=== PATIENT | male | born 1945 | race Caucasian/White ===

== ENCOUNTER 2023-07-15 09:04 | Outpatient (OUT) | payer MEDICARE, BC, SELFPAY ==
[2023-07-15 09:34] LABS: Estimated Average Glucose 154 mg/dL
== END 2023-07-15 09:05 | disposition home or self-care (01) ==
LOC: LAB 09:10
PROVIDERS: PCP Family Medicine; Visit Provider Family Medicine
DX: E11.65 Type 2 diabetes mellitus with hyperglycemia (principal)
CPT/HCPCS: 36415; 83036

== ENCOUNTER 2023-10-16 11:28 | Outpatient (OUT) | payer MEDICARE, BC, SELFPAY ==
[2023-10-16 12:18] LABS: Estimated Average Glucose 146 mg/dL; Glycohemoglobin A1C 6.7 % (4.5-6.2)
== END 2023-10-16 11:29 | disposition home or self-care (01) ==
LOC: LAB 11:31
PROVIDERS: PCP Family Medicine; Visit Provider Family Medicine
DX: E11.65 Type 2 diabetes mellitus with hyperglycemia (principal)
CPT/HCPCS: 36415; 83036

== ENCOUNTER 2023-12-11 11:11 | Outpatient (OUT) | payer MEDICARE, BC, SELFPAY ==
--- OUTSIDE RECORDS SUMMARY | 2023-12-11 11:26 | XMS_ITS | CCD ---
Author Organization [facility] Care Team Providers Care Team Facilitator Name Role Phone UNKNOWN, PROVIDER Admitting Unavailable LUX ORTIZ Referring Unavailable NADEREGeronimo, BENEDICT Primary Care Unavailable JACQUELYN STEIN Attending Unavailable ND Procedure Practitioner Unavailab le UNKNOWN, PROVIDER Surgeon Unavailable AVEL, DR BENEDICT Brush Consulting Unavailable NADERER, DR BENEDICT Brush Attending Unavailable NADERER, DR BENEDICT Brush Admitting Unavailable NADERER, DR BENEDICT Brush Primary Care Unavailable NADERER, DR BENEDICT Brush Primary Care Unavailable NADERER, DR BENEDICT Brush Consulting Unavailable NADERER, DR BENEDICT Brush Attending Unavailable NADERER, DR BENEDICT Brush Admitting Unavailable KVNG JOHNSON Attending Unavailable ELIZABETH, KVNG Attending Unavailable Benedict Vallecillo MD Primary Care Provider [phone] Unavailable Primary Care Provider Unavailabl WILLIE Brown JR Referring Unavailabl e STEPBRIANNA AZUL, WILLIE Manzano Referring Unavailabl e STEPBRIANNA AZUL, WILLIE Manzano Attending Unavailabl e INDY AZUL, WILLIE Manzano Referring Unavailabl e STEPBRIANNA AZUL, WILLIE Manzano Attending Unavailabl e STEPBRIANNA AZUL, WILLIE Manzano Referring Unavailabl e ANH POPE Attending Unavailable BENEDICT VALLECILLO Attending Unavailable JR. INDY, WILLIE Manzano Attending Unavaila yunior WOODS JR., WILLIE Manzano Referring Unavaila BERNICE Acosta Attending Unavailable GAL BAUTISTA Attending Unavailable BERNICE AVILA Referring Unavailable Allergies Allergy Classification Reported Allergen(s) Allergy Type Date of Onset Reaction(s) Facility (1 source) 90412,00 Drug allergy (disorder) 9 [facility] Repository (1 source) ALLERGIES NOT ON FILE; Translations: [ALLERGIES NOT ON FILE] Propensity to adverse reactions (disorder) [facility] Repository Medications Current Medications Medication Drug Class(es) Dates Sig (Normalized) Sig (Original) apixaban 5 mg oral tablet (7 sources) Factor Xa Inhibitor Start: 09-18-2023 take 1 tablet by mouth in the morning, then take 1 tablet by mouth at bedtime ELIQUIS 5 mg tablet Take 1 tablet (5 mg total) by mouth in the morning and 1 tablet (5 mg total) before bedtime. 0 09/18/2023 Active ascorbic acid 113 mg / copper gluconate 0.4 mg / docosahexaenoic acid 87.5 mg / eicosapentaenoic acid 163 mg / lutein 2.5 mg / tocopherol acetate 100 unt / zeaxanthin 0.5 mg / zinc oxide 17.4 mg oral capsule (6 sources) Vitamin C take 1 tablet by mouth twice daily Multiple Vitamins-Minerals (PreserVision AREDS 2) capsule 1 tablet Orally two times daily 0 Active aspirin 81 mg delayed release oral tablet (7 sources) Platelet Aggregation Inhibitor, Nonsteroidal Anti-inflammatory Drug take 1 tablet by mouth in the morning aspirin 81 mg Take 1 tablet (81 mg total) by mouth in the morning. 0 Active atorvastatin 40 mg oral tablet (7 sources) HMG-CoA Reductase Inhibitor Start: 09-18-2023 take 1 tablet by mouth in the morning atorvastatin (LIPITOR) 40 mg tablet Take 1 tablet (40 mg total) by mouth in the morning. 0 09/18/2023 Active empagliflozin 25 mg oral tablet (7 sources) Sodium-Glucose Cotransporter 2 Inhibitor Start: 09-18-2023 take 1 tablet by mouth in the morning JARDIANCE 25 mg tablet tablet Take 1 tablet (25 mg total) by mouth in the morning. 0 09/18/2023 Active folic acid 1 mg / polysaccharide iron complex 150 mg / vitamin b12 0.025 mg oral capsule (1 source) Vitamin B12 Start: 11-30-2023 End: 12-30-2023 take 1 tablet by mouth in the morning POLY-IRON 150 FORTE 150-25-1 mg-mcg-mg capsule Take 1 tablet by mouth in the morning. 0 11/30/2023 12/30/2023 Active glipiZIDE 10 mg oral tablet (7 sources) Sulfonylurea take 1 tablet by mouth in the morning glipiZIDE (GLUCOTROL) 10 mg tablet Take 1 tablet (10 mg total) by mouth in the morning. 0 Active lisinopril 20 mg oral tablet (7 sources) Angiotensin Converting Enzyme Inhibitor Start: 09-18-2023 take 1 tablet by mouth in the morning lisinopriL (PRINIVIL,ZESTRIL ) 20 mg tablet Take 1 tablet (20 mg total) by mouth in the morning. 0 09/18/2023 Active Multiple Vitamins-Minerals (Centrum Silver 50+Men) tablet (6 sources) Multiple Vitamins-Minerals (Centrum Silver 50+Men) tablet as directed Orally 0 Active otinurzy-uggw-JI-calci um &mins (THERAGRAN-M) 9 mg iron-400 mcg tablet (1 source) fzvaooxf-jmrx-YS - calcium &mins (THERAGRAN-M) 9 mg iron-400 mcg tablet Take 1 tablet by mouth in the morning. 0 Active vit C/E/zinc ox/ginny/lut/zeax (ICAPS AREDS2 ORAL) (1 source) take 1 tablet by mouth in the morning vit C/E/zinc ox/ginny/lut/zeax (ICAPS AREDS2 ORAL) Take 1 tablet by mouth in the morning. 0 Active Problems Active Problems Problem Classification Problem Date Documented Date Episodic/Chronic Cardiac dysrhythmias (2 sources) Atrial fibrillation; Translations: [Unspecified atrial fibrillation] Onset: 12-03-2023 11-27-2023 Chronic Conditions associated with dizziness or vertigo (5 sources) Benign paroxysmal positional vertigo; Translations: [Benign paroxysmal vertigo, unspecified ear] Onset: 10-16-2023 10-16-2023 Episodic Conduction disorders (6 sources) Heart block ; Translations: [Conduction disorder, unspecified] Onset: 06-21-2019 04-22-2023 Chronic Coronary atherosclerosis and other heart disease (15 sources) Atherosclerotic heart disease of [place] coronary artery without angina pectoris; Translations: [Coronary arteriosclerosis] Onset: 06-21-2019 Resolved: 10-16-2023 Chronic Diabetes mellitus with complications (11 sources) Type 2 diabetes mellitus with hyperglycemia; Translations: [Type 2 diabetes mellitus] Onset: 05-15-2022 Chronic Diabetes mellitus without complication (2 sources) Type 2 diabetes mellitus without complication; Translations: [Type 2 diabetes mellitus without complications] Onset: 12-03-2023 11-27-2023 Chronic Disorders of lipid metabolism (9 sources) Hyperlipidemia, unspecified; Translations: [Mixed hyperlipidemia] Onset: 11-17-2022 Chronic Essential hypertension (12 sources) Essential (primary) hypertension; Translations: [Benign essential hypertension] Onset: 11-13-2022 Chronic Genitourinary symptoms and ill-defined conditions (2 sources) Increased frequency of urination; Translations: [Frequency of micturition] Onset: 12-03-2023 11-27-2023 Episodic Gout and other crystal arthropathies (5 sources) Gouty arthropathy; Translations: [Gout, unspecified] Onset: 10-16-2023 10-16-2023 Chronic Osteoarthritis (17 sources) Unilateral primary osteoarthritis, left knee; Translations: [Osteoarthritis of knee] Onset: 04-22-2023 Chronic Other aftercare (1 source) Other [facility] (current) drug therapy; Translations: [OTH USP CURRENT DRUG THERAPY] Onset: 11-17-2022 Episodic Other liver diseases (5 sources) Non-alcoholic fatty liver; Translations: [Fatty (change of) liver, not elsewhere classified] Onset: 10-16-2023 10-16-2023 Chronic Other non-traumatic joint disorders (2 sources) Pain in left knee; Translations: [Pain in joint, lower leg] 10-21-2023 Episodic Other screening for suspected conditions (not mental disorders or infectious disease) (1 source) Encounter for screening for malignant neoplasm of prostate; Translations: [ENC SCREEN MALIG NEOPLASM PROSTATE] Onset: 11-17-2022 Episodic Peripheral and visceral atherosclerosis (5 sources) Peripheral vascular disease; Translations: [Peripheral vascular disease, unspecified] Onset: 10-16-2023 10-16-2023 Chronic Pulmonary heart disease (8 sources) Chronic pulmonary embolism; Translations: [Chronic pulmonary embolism] Onset: 02-04-2023 Chronic Screening and history of mental health and substance abuse codes (2 sources) Ex-smoker; Translations: [Personal history of nicotine dependence] Onset: 12-03-2023 11-27-2023 Episodic Past or Other Problems Problem Classification Problem Date Documented Da te Episodic/Chronic Coronary atherosclerosis and other heart disease (8 sources) Presence of coronary angioplasty implant and graft; Translations: [Percutaneous transluminal coronary angioplasty status] Onset: 02-04-2023 Episodic Pulmonary heart disease (8 sources) Personal history of pulmonary embolism; Translations: [H/O: pulmonary embolus] Onset: 12-21-2020 Episodic Residual codes; unclassified (2 sources) Personal history of other complications of , childbirth and the puerperium; Translations: [Personal history of other complications of , childbirth and the puerperium] Onset: 02-04-2023 Episodic Results Test Name Value Interpretation Reference Range Facility Bacteria identified Cx Nom ( U)on 12-04-2023 Service comment (Unsp spec) [Interp] NO GROWTH AT <1000 CFU/mL [facility] CBC AND AUTO DIFFon 12-03-19 ABSOLUTE BASOPHIL 0.0 X10E9/L Normal 0.0-0.2 [facility] Comment on above: Performed By: #### C BCA, CMP #### [facility] ([id number]) [address] [facility] [address] [place] [address] ABSOLUTE NEUTROPHIL 4.7 X10E9/L Normal 1.5-6.6 [facility] Comment on above: Performed By: #### C BCA, CMP #### [facility] ([id number]) [address], [address] [place] [address] Basophils/100 WBC (Bld) 0.5 % Normal [facility] Comment on above: Performed By: #### C BCA, CMP #### [facility] ([id number]) [address] [address] [place] [address] Eosinophils (Bld) [#/Vol] 0.1 10*3/uL Normal 0.0-0.4 [facility] Comment on above: Performed By: #### C BCA, CMP #### [facility] ([id number]) [address] [address] [place] [address] Eosinophils/100 WBC (Bld) 1.8 % Normal [facility] Comment on above: Performed By: #### C BCA, CMP #### [facility] ([id number]) [address], [address] [place] [address] Erythrocyte distribution width (RBC) [Ratio] 14.3 % Normal 11.5-15.0 [facility] Comment on above: Performed By: #### C BCA, CMP #### [facility] ([id number]) [address], [address] [place] [address] Hematocrit (Bld) [Volume fraction] 47.0 % Normal 39-49 [facility] Comment on above: Performed By: #### C BCA, CMP #### [facility] ([id number]) [address], [address] [place] [address] Hemoglobin (Bld) [Mass/Vol] 15.9 g/dL Normal 13.0-17.0 [facility] Comment on above: Performed By: #### C BCA, CMP #### [facility] ([id number]) [address], [address] [place] [address] Lymphocytes (Bld) [#/Vol] 1.4 10*3/uL Normal 1.0-3.5 [facility] Comment on above: Performed By: #### C BCA, CMP #### [facility] ([id number]) [address] [place] [address] Lymphocytes/100 WBC (Bld) 20.5 % Normal [facility] Comment on above: Performed By: #### C BCA, CMP #### [facility] ([id number]) [address], [address] [place] [address] MCH (RBC) [Entitic mass] 31.1 pg Normal 27-34 [facility] Comment on above: Performed By: #### C BCA, CMP #### [facility] ([id number]) [address], [address] [place] [address] MCHC (RBC) [Mass/Vol] 33.9 g/dL Normal 32-36 [facility] Comment on above: Performed By: #### C BCA, CMP #### [facility] ([id number]) [address], [address] [place] [address] MCV (RBC) [Entitic vol] 92 fL Normal 80-100 [facility] Comment on above: Performed By: #### C JUANPABLO, CMP #### [facility] ([id number]) [address], [address] [place] [address] Monocytes (Bld) [#/Vol] 0.7 10*3/uL Normal 0-0.9 [facility] Comment on above: Performed By: #### C JUANPABLO, CMP #### [facility] ([id number]) [address], [facility] [address] [place] [address] Monocytes/100 WBC (Bld) 9.7 % Normal [facility] Comment on above: Performed By: #### Jose Juan GERONIMO, CMP #### [facility] ([id number]) [address], [facility] [address] [place] [address] Neutrophils/100 WBC (Bld) 67.5 % Normal [facility] Comment on above: Performed By: #### C JUANPABLO, CMP #### [facility] ([id number]) [address], [address] [place] [address] Platelet mean volume (Bld) [Entitic vol] 8.4 fL Normal 7-12 [facility] Comment on above: Performed By: #### C JUANPABLO, CMP #### [facility] ([id number]) [address], [address] [place] [address] Platelets (Bld) [#/Vol] 155 10*3/uL Normal 150-450 [facility] Comment on above: Performed By: #### C JUANPABLO, CMP #### [facility] ([id number]) [address], [address] [place] [address] RBC COUNT 5.12 X10E12/L Normal 4.10-5.70 [facility] Comment on above: Performed By: #### C BCA, CMP #### [facility] ([id number]) [address] [place] [address] WBC (Bld) [#/Vol] 7.0 10*3/uL Normal 4.0-11.0 [facility] Comment on above: Performed By: #### C BCA, CMP #### [facility] ([id number]) [address], [address] [place] [address] CBC auto differentialon 11-13 Basophils (Bld) [#/Vol] 0.0 10*3/uL [facility] Basophils/100 WBC (Bld) 0.5 % [facility] Eosinophils (Bld) [#/Vol] 0.1 10*3/uL [facility] Eosinophils/100 WBC (Bld) 1.8 % [facility] Erythrocyte distribution width (RBC) [Ratio] 14.3 % 11.5 - 15.0 % [facility] Hematocrit (Bld) [Volume fraction] 47.0 % 39 - 49 % [facility] Hemoglobin (Bld) [Mass/Vol] 15.9 g/dL 13.0 - 17.0 g/dL [facility] Lymphocytes (Bld) [#/Vol] 1.4 10*3/uL [facility] Lymphocytes/100 WBC (Bld) 20.5 % [facility] MCH (RBC) [Entitic mass] 31.1 pg 27 - 34 pg [facility] MCHC (RBC) [Mass/Vol] 33.9 g/dL 32 - 36 g/dL [facility] MCV (RBC) [Entitic vol] 92 fL 80 - 100 fL [facility] Monocytes (Bld) [#/Vol] 0.7 10*3/uL [facility] Monocytes/100 WBC (Bld) 9.7 % [facility] Neutrophils (Bld) [#/Vol] 4.7 10*3/uL [facility] Neutrophils/100 WBC (Bld) 67.5 % [facility] Platelet mean volume (Bld) [Entitic vol] 8.4 fL 7 - 12 fL [facility] Platelets (Bld) [#/Vol] 155 10*3/uL [facility] RBC (Bld) [#/Vol] 5.12 10*6/uL [facility] WBC corrected for nucl RBC Auto (Bld) [#/Vol] 7.0 [facility] COMPREHENSIVE METABOLIC PANE Yung 12-03-2023 Albumin [Mass/Vol] 4.2 g/dL Normal 3.2-5.3 [facility] Comment on above: Performed By: #### C BCA, CMP #### [facility] ([id number]) [address], [address] [place] [address] ALP [Catalytic activity/Vol] 103 U/L Normal 39-130 [facility] Comment on above: Performed By: #### C BCA, CMP #### [facility] ([id number]) [address], [address] [place] [address] ALT [Catalytic activity/Vol] 30 U/L Normal 0-40 [facility] Comment on above: Performed By: #### C BCA, CMP #### [facility] ([id number]) [address], [address] [place] [address] Anion gap [Moles/Vol] 12 mmol/L Normal 5-15 [facility] Comment on above: Performed By: #### C BCA, CMP #### [facility] ([id number]) [address], [address] [place] [address] AST [Catalytic activity/Vol] 28 U/L Normal 0-41 [facility] Comment on above: Performed By: #### C BCA, CMP #### [facility] ([id number]) [address], [address] [place] [address] Bilirubin [Mass/Vol] 0.7 mg/dL Normal 0.3-1.2 [facility] Comment on above: Performed By: #### C BCA, CMP #### [facility] ([id number]) [address], [address] [place] [address] Calcium [Mass/Vol] 9.9 mg/dL Normal 8.5-10.5 [facility] Comment on above: Performed By: #### C BCA, CMP #### [facility] ([id number]) [address], [address] [place] [address] Chloride [Moles/Vol] 106 mmol/L Normal 98-109 [facility] Comment on above: Performed By: #### C BCA, CMP #### [facility] ([id number]) [address], [address] [place] [address] CO2 [Moles/Vol] 27 mmol/L Normal 22-32 [facility] Comment on above: Performed By: #### C BCA, CMP #### [facility] ([id number]) [address] [address] [place] [address] Creatinine [Mass/Vol] 1.15 mg/dL Normal 0.60-1.30 [facility] Comment on above: Result Comment: METH OD TRACEABLE TO IDMS STANDARD Performed By: #### C BCA, CMP #### [facility] ([id number]) [address] [place] [address] GFR/1.73 sq M.predicted among non-blacks MDRD (S/P/Bld) [Vol rate/Area] 66 mL/min/{1.73_m2} Normal >59 [facility] Comment on above: Result Comment: Reported eGFR is based on the CKD-EPI 1 equation that does not use a race coefficient. Performed By: #### C BCA, CMP #### [facility] ([id number]) [address] [address] [place] [address] Glucose [Mass/Vol] 94 mg/dL Normal 65-99 [facility] Comment on above: Performed By: #### C BCA, CMP #### [facility] ([id number]) [address] [address] [place] [address] Potassium [Moles/Vol] 4.3 mmol/L Normal 3.5-5.0 [facility] Comment on above: Performed By: #### C BCA, CMP #### [facility] ([id number]) [address], [address] [address] Protein [Mass/Vol] 7.0 g/dL Normal 6.0-8.0 [facility] Comment on above: Performed By: #### C BCA, CMP #### [facility] ([id number]) [address], [address] [address] Sodium [Moles/Vol] 145 mmol/L Normal 134-146 [facility] Comment on above: Performed By: #### C BCA, CMP #### [facility] ([id number]) [address] [address] Urea nitrogen [Mass/Vol] 26 mg/dL Normal 5-27 [facility] Comment on above: Performed By: #### C BCA, CMP #### [facility] ([id number]) [address], [address] [address] Comprehensive metabolic pane yung 12-03-2023 Albumin [Mass/Vol] 4.2 g/dL 3.2 - 5.3 g/dL [facility] ALP [Catalytic activity/Vol] 103 U/L 39 - 130 U/L [facility] ALT No additional P-5'-P [Catalytic activity/Vol] 30 U/L 0 - 40 U/L [facility] Anion gap [Moles/Vol] 12 mmol/L 5 - 15 mmol/L [facility] AST [Catalytic activity/Vol] 28 U/L 0 - 41 U/L [facility] Bilirubin [Mass/Vol] 0.7 mg/dL 0.3 - 1 .2 mg/dL [facility] Calcium [Mass/Vol] 9.9 mg/dL 8.5 - 10. 5 mg/dL [facility] Chloride [Moles/Vol] 106 mmol/L 98 - 10 9 mmol/L [facility] CO2 [Moles/Vol] 27 mmol/L 22 - 32 mmol/L [facility] Creatinine [Mass/Vol] 1.15 mg/dL 0.60 - 1.30 mg/dL [facility] Comment on above: METHOD TRACEABLE TO IDKY STANDARD eGFR (CKD-EPI)non-race dependent 66 - PINF [facility] Comment on above: Reported eGFR is based on the CKD-EPI 2020 equation that does not use a race coefficient. Glucose [Mass/Vol] 94 mg/dL 65 - 99 mg/dL [facility] Potassium [Moles/Vol] 4.3 mmol/L 3.5 - 5.0 mmol/L [facility] Protein [Mass/Vol] 7.0 g/dL 6.0 - 8.0 g/dL [facility] Sodium [Moles/Vol] 145 mmol/L 134 - 146 mmol/L [facility] Urea nitrogen [Mass/Vol] 26 mg/dL 5 - 27 mg/dL [facility] HGB A1C (GLYCO-HGB)on 2023 Glucose [Mass/Vol] 146 mg/dL Normal [facility] Comment on above: Performed By: #### C BCA, CMP #### [facility] ([id number]) [address] [place] [address] HbA1c (Bld) [Mass fraction] 6.7 % High 4.4-5.6 [facility] Comment on above: Result Comment: NOTE ADA Guidelines Result HgbA1c Normal : less than 5.7 % Prediabetes : 5.7 % to 6.4 % Diabetes : > 6.4 % Use with caution in patients with abnormal hemoglobin variants as the half-life of red blood cells and in vivo glycation rates are affected. Performed By: #### C BCA, CMP #### [facility] ([id number]) [address] [place] [address] Hemoglobin A1con 12-03-2023 Average glucose Estimated from glycated hemoglobin (Bld) [Mass/Vol] 146 mg/dL [facility] HbA1c (Bld) [Mass fraction] 6.7 % High 4.4 - 5.6 % [facility] Comment on above: NOTE ADA Guidelines Result HgbA1c Normal : less than 5.7 % Prediabetes : 5.7 % to 6.4 % Diabetes : > 6.4 % Use with caution in patients with abnormal hemoglobin variants as the half-life of red blood cells and in vivo glycation rates are affected. Interpretation and review of laboratory results Abnormal [facility] URINALYSISon 12-03-2023 Bilirubin Ql (U) Negative Normal NEG [facility] BLOOD/HGB Negative Normal NEG [facility] Color (U) YELLOW Normal YELLOW [facility] Glucose Ql (U) >1000 Abnormal NEG [facility] Ketones Ql (U) Negative Normal NEG [facility] Leukocyte esterase Test strip Ql (U) Negative Normal NEG [facility] Comment on above: Result Comment: HIGH CONCENTRATIONS OF GLUCOSE MAY DECREASE THE REACTIVITY OF THE DIPSTICK LEUKOCYTE TEST PAD. Nitrite Ql (U) Negative Normal NEG [facility] pH (U) 6.5 [pH] Normal 5.0-8.5 [facility] Protein Ql (U) Negative Normal NEG [facility] Specific gravity (U) [Rel density] 1.033 Normal 1.003-1.035 [facility] TURBIDITY CLEAR Normal CLEAR [facility] Urobilinogen (U) [Mass/Vol] mg/dL Normal <1.1 [facility] URINE CULTUREon 12-03-2023 Bacteria identified Cx Nom (U) CULTURE RESULTS NO GROWTH AT <1000 CFU/mL Normal [facility] Comment on above: Performed By: #### 6 30-4 #### [facility] ([id number]) [address] [place] [address], [address] [place] [address] Urinalysison 12-03-2023 Bilirubin Ql (U) Negative Negative^Ne ga tive [facility] Color (U) YELLOW YELLOW^YELLOW [facility] Glucose (U) [Mass/Vol] mg/dL Abnormal Negative^Nega tive mg/dL [facility] Hemoglobin Auto test strip Ql (U) Negative Negative^Nega tive [facility] Interpretation and review of laboratory results Abnormal [facility] Ketones (U) [Mass/Vol] Negative Negative^Nega tive mg/dL [facility] Leukocyte esterase Auto test strip Ql (U) Negative Negative^Nega tive [facility] Comment on above: HIGH CONCENTRATIONS OF GLUCOSE MAY DECREASE THE REACTIVITY OF THE DIPSTICK LEUKOCYTE TEST PAD. Nitrite Auto test strip Ql (U) Negative Negative^Nega tive [facility] pH (U) 6.5 [pH] 5.0 - 8.5 [facility] Protein (U) [Mass/Vol] Negative Negative^Nega tive mg/dL [facility] Specific gravity Refractometry automated (U) [Rel density] 1.033 1.003 - 1.035 [facility] Turbidity Ql (U) CLEAR CLEAR^CLEAR [facility] Urobilinogen Qn (U) [facility] XR CHEST 2 VWSon 12-03-2023 XR CHEST 2 VWS XR CHEST 2 VWS CHEST RADIOGRAPH 12/03/2023 9:51 AM CLINICAL INDICATION: Preoperative evaluation, left knee surgery. No current chest complaints. Former smoker. TECHNIQUE: Frontal and lateral views of the chest were obtained. COMPARISON: No prior studies. FINDINGS: Lungs, heart & mediastinum: Cardiomediastinal silhouette appears normal. No pleural effusion or pneumothorax is present. There is no focal pulmonary infiltrate. Other: Evaluation of bony structures shows no displaced fractures, or concerning bone lesions. Relatively mild degenerative changes in the spine. IMPRESSION: 1. No acute cardiopulmonary process Finalized by Ricardo Mackey MD on 12/03/2023 4:17 PM Normal [facility] XR Chest PA and Lateralon CHEST RADIOGRAPH 12/03/2023 9:51 AM CLINICAL INDICATION: Preoperative evaluation, left knee surgery. No current chest complaints. Former smoker. TECHNIQUE: Frontal and lateral views of the chest were obtained. COMPARISON: No prior studies. FINDINGS: Lungs, heart & mediastinum: Cardiomediastinal silhouette appears normal. No pleural effusion or pneumothorax is present. There is no focal pulmonary infiltrate. Other: Evaluation of bony structures shows no displaced fractures, or concerning bone lesions. Relatively mild degenerative changes in the spine. IMPRESSION: 1. No acute cardiopulmonary process Finalized by Ricardo Mackey MD on 12/03/2023 4:17 PM SECTRAPARicardo Escobar MD - 12/03/2023 CHEST RADIOGRAPH 12/03/2023 9:51 AM CLINICAL INDICATION: Preoperative evaluation, left knee surgery. No current chest complaints. Former smoker. TECHNIQUE: Frontal and lateral views of the chest were obtained. COMPARISON: No prior studies. FINDINGS: Lungs, heart & mediastinum: Cardiomediastinal silhouette appears normal. No pleural effusion or pneumothorax is present. There is no focal pulmonary infiltrate. Other: Evaluation of bony structures shows no displaced fractures, or concerning bone lesions. Relatively mild degenerative changes in the spine. IMPRESSION: 1. No acute cardiopulmonary process Finalized by Ricardo Mackey MD on 12/03/2023 4:17 PM [facility] Radiology Study observation (narrative) [facility] XR Chest PA and LateralOrder ed By: Ricardo Mackey on 12-03-2023 [facility] Work Phone: XR Knee - left 1 or 2 Viewso n 10-21-2023 Imaging Result: AP and lateral views of left knee showed severe varus deformity with [id number] articulation to the medial joint line, flattening of the articular surfaces to the medial joint line lateral joint line and patellofemoral joint. Subchondral sclerosis was noted at the medial joint line surfaces as well as the lateral joint line and patellofemoral joint. Marginal osteophytic formation was noted tricompartmentally. There is no evidence of fracture or dislocation. 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 [facility] Radiology Study observation (narrative) [facility] MLR HEMOGLOBIN A1Con 024 Glucose [Mass/Vol] 146 mg/dL [facility] HbA1c (Bld) [Mass fraction] 6.7 % High 4.5 - 6.2 % [facility] Comment on above: ADA RECOMMENDED LIMI T 4.0 - 6.0 ADA THERAPEUTIC TARGET < 7.0 ACTION SUGGESTED > 7.0 Interpretation and review of laboratory results Abnormal [facility] Healthcare [facility] Healthcare Office Visiton 08-05-2023 Follow-up visit [id number] Sereg Shine 1945 M Date Provider Department Center 08/05/2023 [facility] Family History Problem Relation Age of Onset No Known Problems Mother No Known Problems Father Family Status - Relation Status Age at Mother Father Level of Service:92617 [place] OFFICE/OUTPATIENT ESTABLISHED MOD MDM 30-39 MIN Normal [facility] Office Visiton 02-04-2023 Follow-up visit [id number] Serge Shine 1945 M Date Provider Department Center 02/04/2023 [facility] No family history on file Level of Service:00577 ND OFFICE/OUTPATIENT ESTABLISHED MOD MDM 30-39 MIN Normal [facility] CBC AUTO DIFFon 11-13-2022 BASO # 0.0 103/ul Normal 0.0-0.1 [facility] Comment on above: Performed By: #### C BC #### [facility] [address] [place] [address] Dr. Demetris Allred Basophils/100 WBC (Bld) 0.4 % Normal 0.2-2.0 [facility] Comment on above: Performed By: #### C BC #### [facility] [address] [place] [address] Dr. Demetris Allred EO # 0.2 103/ul Normal 0.0-0.7 [facility] Comment on above: Performed By: #### C BC #### [facility] [address] [place] [address] Dr. Demetris Allred Eosinophils/100 WBC (Bld) 2.2 % Normal 0.9-7.0 [facility] Comment on above: Performed By: #### C BC #### [facility] [address] [place] [address] Dr. Demetris Allred Erythrocyte distribution width (RBC) [Ratio] 12.7 % Normal 11.0-15.0 [facility] Comment on above: Performed By: #### C BC #### [facility] [address] [place] [address] Dr. Demetris Allred Hematocrit (Bld) [Volume fraction] 44.8 % Normal 42.0-54.0 [facility] Comment on above: Performed By: #### C BC #### [facility] [address] [place] [address] Dr. Demetris Allred Hemoglobin (Bld) [Mass/Vol] 15.0 g/dL Normal 14.0-18.0 [facility] Comment on above: Performed By: #### C BC #### [facility] [address] [place] [address] Dr. Demetris Allred IG # 0.02 10e3/ul Normal 0.00-0.03 [facility] Comment on above: Performed By: #### C BC #### [facility] [address] [place] [address] Dr. Demetris Allred IG % 0.3 % Normal 0.0-0.5 [facility] Comment on above: Performed By: #### C BC #### [facility] [address] [place] [address] Dr. Demetris Allred LYMPH # 1.6 103/ul Normal 1.2-3.8 [facility] Comment on above: Performed By: #### C BC #### [facility] [address] [place] [address] Dr. Demetris Allred Lymphocytes/100 WBC (Bld) 19.9 % Critically low 20.5-60.0 [facility] Comment on above: Performed By: #### C BC #### [facility] [address] [place] [address] Dr. Demetris Allred MANUAL DIFF REQ NO Normal [facility] Comment on above: Performed By: #### C BC #### [facility] [address] [place] [address] Dr. Demetris Allred MCH (RBC) [Entitic mass] 30.2 pg Normal 25.9-34.0 [facility] Comment on above: Performed By: #### C BC #### [facility] [address] [place] [address] Dr. Demetris Allred MCHC (RBC) [Mass/Vol] 33.5 g/dL Normal 29.9-35.2 [facility] Comment on above: Performed By: #### C BC #### [facility] [address] [place] [address] Dr. Demetris Allred MCV (RBC) [Entitic vol] 90.1 fL Normal 80.0-94.0 [facility] Comment on above: Performed By: #### C BC #### [facility] [address] [place] [address] Dr. Demetris Allred MONO # 0.6 103/ul Normal 0.3-0.8 [facility] Comment on above: Performed By: #### C BC #### [facility] [address] [place] [address] Dr. Demetris Allred Monocytes/100 WBC (Bld) 8.2 % Normal 1.7-12.0 [facility] Comment on above: Performed By: #### C BC #### [facility] [address] [place] [address] Dr. Demetris Allred NEUT # 5.4 103/ul Normal 1.4-6.5 [facility] Comment on above: Performed By: #### C BC #### [facility] [address] [place] [address] Dr. Demetris Allred Neutrophils/100 WBC (Bld) 69.0 % Normal 43.0-75.0 [facility] Comment on above: Performed By: #### C BC #### [facility] [address] [place] [address] Dr. Demetris Allred Platelet mean volume (Bld) [Entitic vol] 9.6 fL Normal 9.5-13.5 [facility] Comment on above: Performed By: #### C BC #### [facility] [address] [place] [address] Dr. Demetris Allred PLT 169 103/ul Normal 150-450 [facility] Comment on above: Performed By: #### C BC #### [facility] [address] [place] [address] Dr. Demetris Allred RBC 4.97 106/ul Normal 4.70-6.10 [facility] Comment on above: Performed By: #### C BC #### [facility] [address] [address] [address] Demetris Allred WBC 7.8 103/ul Normal 4.0-11.0 [facility] Comment on above: Performed By: #### C BC #### [facility] [address] [place] [address] Dr. Demetris Allred GLYCOHEMOGLOBIN A1Con 2022 ADA RECOMMENDATION SEE BELOW Normal [facility] Comment on above: Result Comment: ADA RECOMMENDED LIMIT 4.0 - 6.0 ADA THERAPEUTIC TARGET < 7.0 ACTION SUGGESTED > 7.0 Performed By: #### A 1C #### [facility] [address] [place] [address] Dr. Demetris Allred Glucose [Mass/Vol] 206 mg/dL Normal [facility] Comment on above: Performed By: #### A 1C #### [facility] [address] [place] [address] Dr. Demetris Allred HbA1c (Bld) [Mass fraction] 8.8 % Critically high 4.5-6.2 [facility] Comment on above: Performed By: #### A 1C #### [facility] [address] [place] [address] Dr. Demetris Allred LIPID PROFILEon 11-13-2022 CHOL-HDL RATIO NORM SEE BELOW Normal [facility] Comment on above: Result Comment: 3.3 - 4.4 LOW RISK 4.4 - 7.1 AVERAGE RISK 7.1 - 11.0 MODERATE RISK >11.0 HIGH RISK Performed By: #### L ANN, LIPID, BMP #### [facility] [address] [place] [address] Dr. Demetris Allred Cholesterol [Mass/Vol] 137 mg/dL Normal <=200 [facility] Comment on above: Performed By: #### L IVER, LIPID, BMP #### [facility] [address] [address] [address] Demetris Allred Cholesterol in HDL [Mass/Vol] 35 mg/dL Critically low 40-60 [facility] Comment on above: Performed By: #### L IVER, LIPID, BMP #### [facility] [address] [address] [address] Demetris Allred Cholesterol in LDL [Mass/Vol] 24.2 mg/dL Normal [facility] Comment on above: Performed By: #### L IVER, LIPID, BMP #### [facility] [address] [address] [address] Demetris Allred Cholesterol.total/Ch olesterol in HDL [Mass ratio] 3.9 {ratio} Normal [facility] Comment on above: Performed By: #### L IVER, LIPID, BMP #### [facility] [address] [address] [address] Demetris Allred HDL NORMAL > or = 60 mg/dl - LO W CARDIOVASCULAR RISK <40 mg/dl - HIGH CARDIOVASCULAR RISK Normal [facility] Comment on above: Performed By: #### L IVER, LIPID, BMP #### [facility] [address] [address] [address] Demetris Allred LDL CALC NORMAL SEE BELOW Normal [facility] Comment on above: Result Comment: <100 mg/dl OPTIMAL 100 - 129 mg/dl NEAR OR ABOVE OPTIMAL 130 - 159 mg/dl BORDERLINE HIGH 160 - 189 mg/dl HIGH >190 mg/dl VERY HIGH Performed By: #### L IVER, LIPID, BMP #### [facility] [address] [address] [address] Demetris Allred Triglyceride [Mass/Vol] 389 mg/dL Critically high <=150 [facility] Comment on above: Performed By: #### L IVER, LIPID, BMP #### [facility] [address] [address] [address] Demetris Allred VLDL CALC 77.8 mg/dL Normal [facility] Comment on above: Performed By: #### L IVER, LIPID, BMP #### [facility] [address] [address] [address] Demetris Allred LIVER PROFILEon 11-13-2022 Albumin [Mass/Vol] 3.7 g/dL Normal 3.4-5.0 [facility] Comment on above: Performed By: #### L IVER, LIPID, BMP #### [facility] [address] [address] [address] Demetris Allred Albumin/Globulin [Mass ratio] 0.9 {ratio} Normal [facility] Comment on above: Performed By: #### L IVER, LIPID, BMP #### [facility] [address] [address] [address] Demetris Allred ALP [Catalytic activity/Vol] 133 U/L Critically high 46-116 [facility] Comment on above: Performed By: #### L IVER, LIPID, BMP #### [facility] [address] [address] [address] Demetris Allred ALT [Catalytic activity/Vol] 49 U/L Normal 16-63 [facility] Comment on above: Performed By: #### L IVER, LIPID, BMP #### [facility] [address] [address] [address] Demetris Allred AST [Catalytic activity/Vol] 31 U/L Normal 15-37 [facility] Comment on above: Performed By: #### L IVER, LIPID, BMP #### [facility] [address] [address] [address] Demetris Allred BILI, CONJUGATED 0.2 mg/dL Normal 0.0-0.[address] [facility] Comment on above: Performed By: #### L IVER, LIPID, BMP #### [facility] [address] [address] [address] Demetris Allred Bilirubin [Mass/Vol] 1.0 mg/dL Normal 0.2-1.0 [facility] Comment on above: Performed By: #### L IVER, LIPID, BMP #### [facility] [address] [address] [address] Demetris Allred Globulin (S) [Mass/Vol] 4.1 g/dL Normal [facility] Comment on above: Performed By: #### L IVER, LIPID, BMP #### [facility] [address] [address] [address] Demetris Allred Protein [Mass/Vol] 7.8 g/dL Normal 6.4-8.2 [facility] Comment on above: Performed By: #### L IVER, LIPID, BMP #### [facility] [address] [place] [address] Dr. Demetris Allred MICROALBUMIN, RAND URon 03-0 mALB 2.7 mg/L Normal <=30.0 [facility] Comment on above: Performed By: #### M ALBR #### [facility] [address] [place] [address] Dr. Demetris Allred PROF CHEM 8 (BAS METB)on Anion gap [Moles/Vol] 12.4 mmol/L Normal [facility] Comment on above: Performed By: #### L IVER, LIPID, BMP #### [facility] [address] [place] [address] Dr. Demetris Allred Calcium [Mass/Vol] 9.5 mg/dL Normal 8.5-10.1 [facility] Comment on above: Performed By: #### L IVER, LIPID, BMP #### [facility] [address] [place] [address] Dr. Demetris Allred Chloride [Moles/Vol] 101 mmol/L Normal 98-107 [facility] Comment on above: Performed By: #### L IVER, LIPID, BMP #### [facility] [address] [place] [address] Dr. Demetris Allred CO2 [Moles/Vol] 28.9 mmol/L Normal 21.0-32.0 [facility] Comment on above: Performed By: #### L IVER, LIPID, BMP #### [facility] [address] [place] [address] Dr. Demetris Allred Creatinine [Mass/Vol] 0.81 mg/dL Normal 0.70-1.30 [facility] Comment on above: Performed By: #### L IVER, LIPID, BMP #### [facility] [address] [address] [address] Demetris Allred EGFR-AF PUERTO RICAN >60 Normal >=[address] [facility] Comment on above: Performed By: #### L IVER, LIPID, BMP #### [facility] [address] [address] [address] Demetris Allred EGFR-NON AF PUERTO RICAN >60 Normal >=60 [facility] Comment on above: Performed By: #### L IVER, LIPID, BMP #### [facility] [address] [address] [address] Demetris Allred Glucose [Mass/Vol] 252 mg/dL Critically high 74-106 [facility] Comment on above: Performed By: #### L IVER, LIPID, BMP #### [facility] [address] [place] [address] Dr. Demetris Allred Potassium [Moles/Vol] 4.3 mmol/L Normal 3.5-5.1 [facility] Comment on above: Performed By: #### L IVER, LIPID, BMP #### [facility] [address] [address] [address] Demetris Allred Sodium [Moles/Vol] 138 mmol/L Normal 136-145 [facility] Comment on above: Performed By: #### L IVER, LIPID, BMP #### [facility] [address] [address] [address] Demetris Allred Urea nitrogen [Mass/Vol] 16.0 mg/dL Normal 7.0-18.0 [facility] Comment on above: Performed By: #### L IVER, LIPID, BMP #### [facility] [address] [address] [address] Demetris Allred Urea nitrogen/Creatinine [Mass ratio] 19.8 mg/mg Normal [facility] Comment on above: Performed By: #### L IVER, LIPID, BMP #### [facility] [address] [address] [address] Demetris Allred GLYCOHEMOGLOBIN A1Con 2021 ADA RECOMMENDATION SEE BELOW Normal [facility] Comment on above: Result Comment: ADA RECOMMENDED LIMIT 4.0 - 6.0 ADA THERAPEUTIC TARGET < 7.0 ACTION SUGGESTED > 7.0 Performed By: #### A 1C #### [facility] [address] [address] [address] Demetris Allred Glucose [Mass/Vol] 174 mg/dL Normal [facility] Comment on above: Performed By: #### A 1C #### [facility] [address] [address] [address] Demetris Allred HbA1c (Bld) [Mass fraction] 7.7 % Critically high 4.5-6.2 [facility] Comment on above: Performed By: #### A 1C #### [facility] [address] [address] [address] Demetris Allred POC GLUCOSE LABon 06-06-2019 Glucose [Mass/Vol] 174 mg/dL High 70-100 [facility] Comment on above: Performed By: #### 5 [id number], 85879, 23548, 80615 #### [facility] [address] Glucose [Mass/Vol] 147 mg/dL High 70-100 [facility] Comment on above: Performed By: #### 5 3629, 07726, 20022, 23208 #### [facility] [address] [place] [address], [facility] UFH HEPARIN ASSAYon 06-06-20 19 UNFRACTIONATED HEPARIN 0.47 IU/mL Normal 0.30-0.70 [facility] Comment on above: Result Comment: Rosanne roxaban and Apixaban will interfere with the anti Xa assay used to monitor UFH and LMWH. Performed By: #### 5 3629, 21973, 52348, 06603 #### [facility] [address] [place] [id number], [place] BASIC METABOLIC PANELon 05-16 Calcium [Mass/Vol] 8.4 mg/dL Low 8.6-10.3 [facility] Comment on above: Order Comment: No: D o not add to previous draw Performed By: #### 5 3629, 38659, 42560, 83196 #### [facility] [address] [place] [address], [place] Chloride [Moles/Vol] 102 mmol/L Normal 98-107 [facility] Comment on above: Order Comment: No: D o not add to previous draw Performed By: #### 5 3629, 49284, 16956, 11184 #### [facility] [address] [place] [address], [place] CO2 [Moles/Vol] 25 mmol/L Normal 21-31 [facility] Comment on above: Order Comment: No: D o not add to previous draw Performed By: #### 5 3629, 86961, 40799, 50677 #### [facility] [address] [place] [address], [place] Creatinine [Mass/Vol] 0.95 mg/dL Normal 0.70-1.30 [facility] Comment on above: Order Comment: No: D o not add to previous draw Performed By: #### 5 3629, 45162, 43031, 07790 #### [facility] [address] [place] [address], [place] GFR/1.73 sq M predicted among blacks MDRD (S/P/Bld) [Vol rate/Area] mL/min/{1.73_m2} Normal >60 [facility] Comment on above: Order Comment: No: D o not add to previous draw Result Comment: Calc ulation may not be valid for patients over 70 years Performed By: #### 5 3629, 74521, 92999, 69856 #### [facility] [address] [place] [address], [place] GFR/1.73 sq M predicted among non-blacks MDRD (S/P/Bld) [Vol rate/Area] mL/min/{1.73_m2} Normal >60 [facility] Comment on above: Order Comment: No: D o not add to previous draw Result Comment: Calc ulation may not be valid for patients over 70 years Performed By: #### 5 3629, 49632, 89286, 87308 #### [facility] [address] [place] [address], [place] Glucose [Mass/Vol] 181 mg/dL High 70-100 [facility] Comment on above: Order Comment: No: D o not add to previous draw Performed By: #### 5 3629, 18472, 81779, 03481 #### [facility] [address] [place] [address], [place] Potassium [Moles/Vol] 3.8 mmol/L Normal 3.5-5.1 [facility] Comment on above: Order Comment: No: D o not add to previous draw Performed By: #### 5 3629, 27004, 94331, 54708 #### [facility] [address] [place] [address], [place] Sodium [Moles/Vol] 133 mmol/L Low 136-145 [facility] Comment on above: Order Comment: No: D o not add to previous draw Performed By: #### 5 3629, 38270, 67686, 14842 #### [facility] [address] [place] [address], [place] Urea nitrogen [Mass/Vol] 19 mg/dL Normal 7-25 [facility] Comment on above: Order Comment: No: D o not add to previous draw Performed By: #### 5 3629, 16476, 46126, 98962 #### [facility] [address] [place] [address], [place] CBC COMPLETE BLOOD COUNTon 0 - Erythrocyte distribution width (RBC) [Ratio] 14.3 % Normal 11.5-15.0 [facility] Comment on above: Order Comment: No: D o not add to previous draw Performed By: #### 5 362, 80742, 17099, 17986 #### [facility] [address] [place] [address], [facility] Hematocrit (Bld) [Volume fraction] 39.1 % Normal 39.0-50.0 [facility] Comment on above: Order Comment: No: D o not add to previous draw Performed By: #### 5 362, 92378, 35296, 95727 #### [facility] [address] [place] [address], [facility] Hemoglobin (Bld) [Mass/Vol] 12.6 g/dL Low 13.0-17.0 [facility] Comment on above: Order Comment: No: D o not add to previous draw Performed By: #### 5 362, 17381, 81858, 62257 #### [facility] [address] [place] [address], [facility] MCH (RBC) [Entitic mass] 28.8 pg Normal 27.0-33.0 [facility] Comment on above: Order Comment: No: D o not add to previous draw Performed By: #### 5 362, 85907, 88495, 70899 #### [facility] [address] [place] [address], [facility] MCHC (RBC) [Mass/Vol] 32.2 g/dL Normal 32.0-35.0 [facility] Comment on above: Order Comment: No: D o not add to previous draw Performed By: #### 5 362, 57207, 05058, 14957 #### [facility] [address] [place] [address], [place] MCV (RBC) [Entitic vol] 89.5 fL Normal 82.0-98.0 [facility] Comment on above: Order Comment: No: D o not add to previous draw Performed By: #### 5 362, 30077, 54607, 86012 #### [facility] [address] [place] [id number], [facility] Nucleated RBC/100 WBC (Bld) [Ratio] 0 % Normal 0-0 [facility] Comment on above: Order Comment: No: D o not add to previous draw Performed By: #### 5 3629, 39135, 40760, 28757 #### [facility] [address] [place] [address], [place] PLAT CNT 142 10*3/uL Low 150-400 [facility] Comment on above: Order Comment: No: D o not add to previous draw Performed By: #### 5 3629, 64938, 39867, 38706 #### [facility] [address] [place] [address], [facility] RBC (Bld) [#/Vol] 4.37 10*6/uL Normal 4.20-5.70 [facility] Comment on above: Order Comment: No: D o not add to previous draw Performed By: #### 5 3629, 29499, 57211, 29014 #### [facility] [address] [place] [address], [facility] WBC (Bld) [#/Vol] 5.94 10*3/uL Normal 4.00-10.60 [facility] Comment on above: Order Comment: No: D o not add to previous draw Performed By: #### 5 3629, 73895, 61702, 97329 #### [facility] [address] [place] [address], [facility] POC GLUCOSE LABon 06-05-2019 Glucose [Mass/Vol] 187 mg/dL High 70-100 [facility] Comment on above: Performed By: #### 5 3629, 70481, 96188, 23946 #### [facility] [facility] [address] [place] [address], [facility] Glucose [Mass/Vol] 218 mg/dL High 70-100 [facility] Comment on above: Performed By: #### 5 3629, 86217, 08136, 58390 #### [facility] [address] [place] [address], [place] Glucose [Mass/Vol] 190 mg/dL High 70-100 [facility] Comment on above: Performed By: #### 5 3629, 19835, 81208, 00341 #### [facility] [address] [place] [address], [place] Glucose [Mass/Vol] 184 mg/dL High 70-100 [facility] Comment on above: Performed By: #### 5 3629, 34424, 54618, 13291 #### [facility] [address] [place] [address], [place] Glucose [Mass/Vol] 180 mg/dL High 70-100 [facility] Comment on above: Performed By: #### 5 3629, 73589, 77758, 44759 #### [facility] [address] UFH HEPARIN ASSAYon 06-05-20 19 UNFRACTIONATED HEPARIN 0.41 IU/mL Normal 0.30-0.70 [facility] Comment on above: Result Comment: [place] roxaban and Apixaban will interfere with the anti Xa assay used to monitor UFH and LMWH. Performed By: #### 5 3629, 90707, 39291, 60763 #### [facility] [address] [place] [id number], [facility] BASIC METABOLIC PANELon - Calcium [Mass/Vol] 8.4 mg/dL Low 8.6-10.3 [facility] Comment on above: Order Comment: No: D o not add to previous draw Performed By: #### 5 3629, 67260, 62776, 29891 #### [facility] [address] [place] [id number], [facility] Chloride [Moles/Vol] 102 mmol/L Normal 98-107 [facility] Comment on above: Order Comment: No: D o not add to previous draw Performed By: #### 5 3629, 18381, 64617, 53060 #### [facility] [address] [place] [address], [place] CO2 [Moles/Vol] 26 mmol/L Normal 21-31 [facility] Comment on above: Order Comment: No: D o not add to previous draw Performed By: #### 5 3629, 79964, 92554, 18134 #### [facility] [address] [place] [address], [place] Creatinine [Mass/Vol] 0.93 mg/dL Normal 0.70-1.30 [facility] Comment on above: Order Comment: No: D o not add to previous draw Performed By: #### 5 3629, 50826, 88832, 03385 #### [facility] [address] [place] [address], [place] GFR/1.73 sq M predicted among blacks MDRD (S/P/Bld) [Vol rate/Area] mL/min/{1.73_m2} Normal >60 [facility] Comment on above: Order Comment: No: D o not add to previous draw Result Comment: Calc ulation may not be valid for patients over 70 years Performed By: #### 5 3629, 46863, 98412, 34449 #### [facility] [address] [place] [address], [place] GFR/1.73 sq M predicted among non-blacks MDRD (S/P/Bld) [Vol rate/Area] mL/min/{1.73_m2} Normal >60 [facility] Comment on above: Order Comment: No: D o not add to previous draw Result Comment: Calc ulation may not be valid for patients over 70 years Performed By: #### 5 3629, 82990, 67742, 03049 #### [facility] [address] [place] [address], [place] Glucose [Mass/Vol] 159 mg/dL High 70-100 [facility] Comment on above: Order Comment: No: D o not add to previous draw Performed By: #### 5 3629, 80138, 28939, 48433 #### [facility] [address] [place] [address], [facility] Potassium [Moles/Vol] 4.4 mmol/L Normal 3.5-5.1 [facility] Comment on above: Order Comment: No: D o not add to previous draw Performed By: #### 5 3629, 18449, 79742, 77826 #### [facility] [address] [place] [id number], [facility] Sodium [Moles/Vol] 135 mmol/L Low 136-145 [facility] Comment on above: Order Comment: No: D o not add to previous draw Performed By: #### 5 3629, 29702, 57310, 08475 #### [facility] [address] [facility] [address], [facility] Urea nitrogen [Mass/Vol] 17 mg/dL Normal 7-25 [facility] Comment on above: Order Comment: No: D o not add to previous draw Performed By: #### 5 3629, 76304, 66999, 59768 #### [facility] [address] [facility] [address], [facility] CBC W/DIFFon 06-04-2019 ABS BASOPHILS 0.0 10*3/uL Normal 0.0-0.2 [facility] Comment on above: Order Comment: No: D o not add to previous draw Performed By: #### 5 3629, 46806, 71646, 98349 #### [facility] [address] [place] [address], [facility] ABS IMM GRANS 0.0 10*3/uL Normal 0.0-0.2 [facility] Comment on above: Order Comment: No: D o not add to previous draw Performed By: #### 5 3629, 19422, 73137, 09010 #### [facility] [address] [place] [address], [facility] ABS NEUTROPHILS 5.7 10*3/uL Normal 1.6-7.6 [facility] Comment on above: Order Comment: No: D o not add to previous draw Performed By: #### 5 3629, 78130, 28361, 47382 #### [facility] [address] [place] [address], [place] Basophils/100 WBC (Bld) 0.4 % Normal 0.0-1.0 [facility] Comment on above: Order Comment: No: D o not add to previous draw Performed By: #### 5 362, 63661, 25540, 59007 #### [facility] [address] [place] [address], [facility] Eosinophils (Bld) [#/Vol] 0.1 10*3/uL Normal 0.0-0.5 [facility] Comment on above: Order Comment: No: D o not add to previous draw Performed By: #### 5 362, 55997, 89405, 99821 #### [facility] [address] [place] [address], [facility] Eosinophils/100 WBC (Bld) 1.7 % Normal 0.0-6.0 [facility] Comment on above: Order Comment: No: D o not add to previous draw Performed By: #### 5 3629, 75716, 00750, 03045 #### [facility] [address] [place] [address], [place] Erythrocyte distribution width (RBC) [Ratio] 14.3 % Normal 11.5-15.0 [facility] Comment on above: Order Comment: No: D o not add to previous draw Performed By: #### 5 3629, 45942, 08740, 18136 #### [facility] [address] [place] [address], [place] Hematocrit (Bld) [Volume fraction] 42.7 % Normal 39.0-50.0 [facility] Comment on above: Order Comment: No: D o not add to previous draw Performed By: #### 5 362, 81377, 37756, 77476 #### [facility] [address] [place] [address], [facility] Hemoglobin (Bld) [Mass/Vol] 13.6 g/dL Normal 13.0-17.0 [facility] Comment on above: Order Comment: No: D o not add to previous draw Performed By: #### 5 362, 95765, 03534, 86032 #### [facility] [address] [address], [facility] IMMATURE GRANS 0.3 % Normal 0.0-1.0 [facility] Comment on above: Order Comment: No: D o not add to previous draw Performed By: #### 5 362, 30733, 01789, 71731 #### [facility] [address] [facility] [address], [facility] Lymphocytes (Bld) [#/Vol] 1.3 10*3/uL Normal 1.2-4.0 [facility] Comment on above: Order Comment: No: D o not add to previous draw Performed By: #### 5 362, 15580, 26022, 88644 #### [facility] [address] [facility] [address], [facility] Lymphocytes/100 WBC (Bld) 16.9 % Low 20.0-45.0 [facility] Comment on above: Order Comment: No: D o not add to previous draw Performed By: #### 5 362, 40528, 40206, 89977 #### [facility] [address] [facility] [place] [id number], [facility] MCH (RBC) [Entitic mass] 28.9 pg Normal 27.0-33.0 [facility] Comment on above: Order Comment: No: D o not add to previous draw Performed By: #### 5 362, 43831, 99307, 40405 #### [facility] [address] [place] [id number], [facility] MCHC (RBC) [Mass/Vol] 31.9 g/dL Low 32.0-35.0 [facility] Comment on above: Order Comment: No: D o not add to previous draw Performed By: #### 5 3629, 14497, 53491, 16634 #### [facility] [address] [place] [id number], [facility] MCV (RBC) [Entitic vol] 90.9 fL Normal 82.0-98.0 [facility] Comment on above: Order Comment: No: D o not add to previous draw Performed By: #### 5 362, 46429, 51445, 53884 #### [facility] [address] [place] [address], [facility] Monocytes (Bld) [#/Vol] 0.6 10*3/uL Normal 0.1-1.0 [facility] Comment on above: Order Comment: No: D o not add to previous draw Performed By: #### 5 362, 34371, 02491, 90688 #### [facility] [address] [facility] [address], [facility] MONOS 7.5 % Normal 5.0-12.0 [facility] Comment on above: Order Comment: No: D o not add to previous draw Performed By: #### 5 362, 10432, 49214, 46042 #### [facility] [address] [place] [address], [facility] Neutrophils/100 WBC (Bld) 73.2 % High 40.0-72.0 [facility] Comment on above: Order Comment: No: D o not add to previous draw Performed By: #### 5 3629, 92630, 59665, 38818 #### [facility] [address] [place] [id number], [facility] Nucleated RBC/100 WBC (Bld) [Ratio] 0 % Normal 0-0 [facility] Comment on above: Order Comment: No: D o not add to previous draw Performed By: #### 5 3629, 87726, 93568, 74416 #### [facility] [address] [place] [address], [facility] PLAT CNT 153 10*3/uL Normal 150-400 [facility] Comment on above: Order Comment: No: D o not add to previous draw Performed By: #### 5 3629, 68504, 56506, 75082 #### [facility] [address] [place] [id number], [facility] RBC (Bld) [#/Vol] 4.70 10*6/uL Normal 4.20-5.70 [facility] Comment on above: Order Comment: No: D o not add to previous draw Performed By: #### 5 3629, 86812, 18313, 84097 #### [facility] [address] [place] [address], [facility] WBC (Bld) [#/Vol] 7.83 10*3/uL Normal 4.00-10.60 [facility] Comment on above: Order Comment: No: D o not add to previous draw Performed By: #### 5 3629, 70453, 21154, 24857 #### [facility] [address] [place] [address], [facility] MAGNESIUM BLOODon 06-04-2019 Magnesium [Mass/Vol] 2.0 mg/dL Normal 1.9-2.7 [facility] Comment on above: Order Comment: No: D o not add to previous draw Performed By: #### 5 3629, 92124, 92743, 15405 #### [facility] [address] [place] [id number], [facility] PHOSPHORUS BLOODon 9 Phosphate [Mass/Vol] 2.4 mg/dL Low 2.5-5.0 [facility] Comment on above: Order Comment: No: D o not add to previous draw Performed By: #### 5 3629, 03176, 37637, 45577 #### [facility] [address] [place] [address], [place] POC GLUCOSE LABon 06-04-2019 Glucose [Mass/Vol] 176 mg/dL High 70-100 [facility]: Performed By: #### 5 3629, 84035, 99907, 91284 #### [facility] [address] [place] [address], [place] Glucose [Mass/Vol] 188 mg/dL High 70-100 [facility] Comment on above: Performed By: #### 5 3629, 22747, 59523, 30746 #### [facility] [address] [place] [address], [place] Glucose [Mass/Vol] 162 mg/dL High 70-100 [facility] Comment on above: Performed By: #### 5 3629, 65141, 78052, 03750 #### [facility] [address] [place] [address], [place] UFH HEPARIN ASSAYon 06-04-20 19 UNFRACTIONATED HEPARIN 0.46 IU/mL Normal 0.30-0.70 [facility] Comment on above: Result Comment: [place] roxaban and Apixaban will interfere with the anti Xa assay used to monitor UFH and LMWH. Performed By: #### 5 3629, 51307, 87793, 49122 #### [facility] [address] [place] [address], [place] UNFRACTIONATED HEPARIN 0.42 IU/mL Normal 0.30-0.70 [facility] Comment on above: Result Comment: [place] roxaban and Apixaban will interfere with the anti Xa assay used to monitor UFH and LMWH. Performed By: #### 5 3629, 62605, 56164, 89435 #### [facility] [address] [place] [address], [place] UNFRACTIONATED HEPARIN 0.39 IU/mL Normal 0.30-0.70 [facility] Comment on above: Result Comment: [place] roxaban and Apixaban will interfere with the anti Xa assay used to monitor UFH and LMWH. Performed By: #### 5 3629, 67118, 65366, 88575 #### [facility] [address] [place] [address], [facility] UNFRACTIONATED HEPARIN 0.12 IU/mL Critically low 0.30-0.70 [facility] Comment on above: Result Comment: [place] roxaban and Apixaban will interfere with the anti Xa assay used to monitor UFH and LMWH. RESULTS CHECKED AND CALLED. ACCURATELY READ BACK BY LEANNE BAETTY RN @ 0022 on 06-04-19 Performed By: #### 5 3629, 98007, 19359, 56581 #### [facility] [address] BASIC METABOLIC PANELon 09-2 Calcium [Mass/Vol] 8.3 mg/dL Low 8.6-10.3 [facility] Comment on above: Order Comment: No: D o not add to previous draw Performed By: #### 3 1046, 44621, 89530, 92411 #### [facility] [address] [place] [address], [facility] Chloride [Moles/Vol] 103 mmol/L Normal 98-107 [facility] Comment on above: Order Comment: No: D o not add to previous draw Performed By: #### 3 1046, 85912, 68283, 37468 #### [facility] [address] [place] [address], [facility] CO2 [Moles/Vol] 23 mmol/L Normal 21-31 [facility] Comment on above: Order Comment: No: D o not add to previous draw Performed By: #### 3 1046, 47760, 01131, 01028 #### [facility] [address] [place] [address], [facility] Creatinine [Mass/Vol] 0.88 mg/dL Normal 0.70-1.30 [facility] Comment on above: Order Comment: No: D o not add to previous draw Performed By: #### 3 1046, 72580, 38518, 50790 #### [facility] [address] [place] [address], [facility] GFR/1.73 sq M predicted among blacks MDRD (S/P/Bld) [Vol rate/Area] mL/min/{1.73_m2} Normal >60 [facility] Comment on above: Order Comment: No: D o not add to previous draw Result Comment: Calc ulation may not be valid for patients over 70 years Performed By: #### 3 1046, 11836, 15210, 68486 #### [facility] [address] [place] [address], [facility] GFR/1.73 sq M predicted among non-blacks MDRD (S/P/Bld) [Vol rate/Area] mL/min/{1.73_m2} Normal >60 [facility] Comment on above: Order Comment: No: D o not add to previous draw Result Comment: Calc ulation may not be valid for patients over 70 years Performed By: #### 3 1046, 94718, 15461, 37392 #### [facility] [address] [place] [address], [place] Glucose [Mass/Vol] 152 mg/dL High 70-100 [facility] Comment on above: Order Comment: No: D o not add to previous draw Performed By: #### 3 1046, 41150, 74136, 14767 #### [facility] [address] [place] [address], [place] Potassium [Moles/Vol] 4.2 mmol/L Normal 3.5-5.1 [facility] Comment on above: Order Comment: No: D o not add to previous draw Performed By: #### 3 1046, 24438, 63360, 34934 #### [facility] [address] [facility] Sodium [Moles/Vol] 134 mmol/L Low 136-145 [facility] Comment on above: Order Comment: No: D o not add to previous draw Performed By: #### 3 1046, 39201, 69795, 64658 #### [facility] [address] [facility] Urea nitrogen [Mass/Vol] 14 mg/dL Normal 7-25 [facility] Comment on above: Order Comment: No: D o not add to previous draw Performed By: #### 3 1046, 24075, 37134, 44182 #### [facility] [address] [facility] CBC W/DIFFon 06-03-2019 ABS BASOPHILS 0.0 10*3/uL Normal 0.0-0.2 [facility] Comment on above: Order Comment: No: D o not add to previous draw Performed By: #### 3 1046, 71480, 76944, 42494 #### [facility] [address] [facility] ABS IMM GRANS 0.0 10*3/uL Normal 0.0-0.2 [facility] Comment on above: Order Comment: No: D o not add to previous draw Performed By: #### 3 1046, 43633, 39576, 26245 #### [facility] [address] [place] [address], [facility] ABS NEUTROPHILS 6.9 10*3/uL Normal 1.6-7.6 [facility] Comment on above: Order Comment: No: D o not add to previous draw Performed By: #### 3 1046, 96514, 42501, 71174 #### [facility] [address] [place] [address], [facility] Basophils/100 WBC (Bld) 0.4 % Normal 0.0-1.0 [facility] Comment on above: Order Comment: No: D o not add to previous draw Performed By: #### 3 1046, 86947, 61494, 45960 #### [facility] [address] [place] [address], [facility] Eosinophils (Bld) [#/Vol] 0.1 10*3/uL Normal 0.0-0.5 [facility] Comment on above: Order Comment: No: D o not add to previous draw Performed By: #### 3 1046, 53253, 87552, 86844 #### [facility] [address] [place] [id number], [facility] Eosinophils/100 WBC (Bld) 0.8 % Normal 0.0-6.0 [facility] Comment on above: Order Comment: No: D o not add to previous draw Performed By: #### 3 1046, 40910, 07560, 12733 #### [facility] [address] [place] [address], [facility] Erythrocyte distribution width (RBC) [Ratio] 14.3 % Normal 11.5-15.0 [facility] Comment on above: Order Comment: No: D o not add to previous draw Performed By: #### 3 1046, 60474, 20756, 26890 #### [facility] [address] [place] [address], [facility] Hematocrit (Bld) [Volume fraction] 45.0 % Normal 39.0-50.0 [facility] Comment on above: Order Comment: No: D o not add to previous draw Performed By: #### 3 1046, 52701, 08006, 64885 #### [facility] [address] [place] [address], [facility] Hemoglobin (Bld) [Mass/Vol] 14.5 g/dL Normal 13.0-17.0 [facility] Comment on above: Order Comment: No: D o not add to previous draw Performed By: #### 3 1046, 89406, 15790, 79980 #### [facility] [address] [place] [address], [facility] IMM PLATELET FRAC 3.3 % Normal 0.8-6.3 [facility] Comment on above: Order Comment: No: D o not add to previous draw Performed By: #### 3 1046, 28186, 00443, 61689 #### [facility] [address] [place] [address], [place] IMMATURE GRANS 0.3 % Normal 0.0-1.0 [facility] Comment on above: Order Comment: No: D o not add to previous draw Performed By: #### 3 1046, 46238, 76875, 75613 #### [facility] [address] [place] [id number], [facility] Lymphocytes (Bld) [#/Vol] 1.2 10*3/uL Normal 1.2-4.0 [facility] Comment on above: Order Comment: No: D o not add to previous draw Performed By: #### 3 1046, 79527, 94059, 38051 #### [facility] [address] [place] [address], [facility] Lymphocytes/100 WBC (Bld) 13.5 % Low 20.0-45.0 [facility] Comment on above: Order Comment: No: D o not add to previous draw Performed By: #### 3 1046, 06550, 61034, 96767 #### [facility] [address] [place] [address], [place] MCH (RBC) [Entitic mass] 29.1 pg Normal 27.0-33.0 [facility] Comment on above: Order Comment: No: D o not add to previous draw Performed By: #### 3 1046, 06585, 57662, 06349 #### [facility] [address] [place] [address], [facility] MCHC (RBC) [Mass/Vol] 32.2 g/dL Normal 32.0-35.0 [facility] Comment on above: Order Comment: No: D o not add to previous draw Performed By: #### 3 1046, 90589, 20398, 27905 #### [facility] [address] [place] [address], [facility] MCV (RBC) [Entitic vol] 90.2 fL Normal 82.0-98.0 [facility] Comment on above: Order Comment: No: D o not add to previous draw Performed By: #### 3 1046, 55491, 89550, 92832 #### [facility] [address] [place] [id number], [facility] Monocytes (Bld) [#/Vol] 0.7 10*3/uL Normal 0.1-1.0 [facility] Comment on above: Order Comment: No: D o not add to previous draw Performed By: #### 3 1046, 80162, 15298, 12066 #### [facility] [address] [place] [address], [facility] MONOS 7.8 % Normal 5.0-12.0 [facility] Comment on above: Order Comment: No: D o not add to previous draw Performed By: #### 3 1046, 42127, 25593, 52283 #### [facility] [address] [place] [address], [facility] Neutrophils/100 WBC (Bld) 77.2 % High 40.0-72.0 [facility] Comment on above: Order Comment: No: D o not add to previous draw Performed By: #### 3 1046, 02932, 05194, 20660 #### [facility] [address] [place] [address], [facility] Nucleated RBC/100 WBC (Bld) [Ratio] 0 % Normal 0-0 [facility] Comment on above: Order Comment: No: D o not add to previous draw Performed By: #### 3 1046, 92827, 20554, 41945 #### [facility] [address] [facility] PLAT CNT 134 10*3/uL Low 150-400 [facility] Comment on above: Order Comment: No: D o not add to previous draw Performed By: #### 3 1046, 27329, 37382, 74965 #### [facility] [facility] [address] RBC (Bld) [#/Vol] 4.99 10*6/uL Normal 4.20-5.70 [facility] Comment on above: Order Comment: No: D o not add to previous draw Performed By: #### 3 1046, 43750, 42308, 49868 #### [facility] [address] WBC (Bld) [#/Vol] 8.90 10*3/uL Normal 4.00-10.60 [facility] Comment on above: Order Comment: No: D o not add to previous draw Performed By: #### 3 1046, 81886, 72778, 42533 #### [facility] [address] Cardiovascular Lab Reporton 06-03-2019 Cardiovascular Lab Report [facility]: [id number] Physician: Willie Barriga Department of [facility] Service Date: 06/02/2019 Division of Birthdate: 1945 Cardiology Room #: 3CD 140522 Adult Cardiovascular Services [place] [address] Cardiovascular Laboratory Report INDICATION: The patient is a 74-year-old man, who was admitted to the hospital after an episode of cardiopulmonary arrest. He was found to have bilateral pulmonary embolism, and yesterday underwent catheter directed lysis for pulmonary embolism. He did well during the course of the day after the procedure; however later in the evening, he sustained an episode of cardiac arrest and he was resuscitated briefly and recovered quickly. His monitor showed evidence of high-grade AV block and AV dissociation. Because of that, he was brought for cardiac catheterization. PROCEDURE: 1. Bilateral selective coronary angiography. 2. Successful balloon dilatation and drug-eluting stenting of 80% hazy eccentric stenosis in the mid RCA reduced to 0% by deployment of a Synergy 3.5 x 20 mm drug-eluting stent post dilated to 4.0 mm at high pressures. 3. Administration of intracoronary nitroglycerin. METHODS: The procedure was explained to the patient with risks and benefits. He signed informed consent. He was brought to general production laborer in a fasting state. The right wrist area was prepped and draped in usual fashion. Modified Mason's test was favorable. Access in the right radial artery was obtained. Using micropuncture technique, a 6-German x 11 cm Hydrophilic sheath was advanced. Verapamil was given through the sheath and heparin was administered intravenously. Bilateral selective coronary angiography was then performed using 6-German JL3.5 and JR4 diagnostic catheters. Note that initial catheter advancement over the brachial area was facilitated using an angled Glidewire. Catheters were removed. Therapeutic ACT was confirmed during the rest of the procedure. A 6-German JR4 guiding catheter was advanced and used to engage the right coronary ostium. A Prowater wire was advanced to the distal RCA. Balloon angioplasty in the mid RCA was performed using an Emerge 3.5 x 12 mm balloon inflated at 10 atmospheres. Angiography revealed suboptimal results. This was treated using deployment of a Synergy 3.5 x 20 mm drug-eluting stent deployed at 11 atmospheres and post dilated using NC Quantum Cunningham 3.5 x 15 mm noncompliant balloon inflated at 18 atmospheres throughout the length of the stented segment. Additional postdilatation using NC Quantum Cunningham 4.0 x 8 mm noncompliant balloon was performed in the proximal segment of the stent at 18 atmospheres. Final angiography after administration of intracoronary nitroglycerin showed excellent result with reduction of the stenosis to 0%. No evidence of dissection or perforation. The guiding catheter was removed. Procedure was concluded. A TR band was used for hemostasis in the right radial artery. The patient was loaded with 600 mg of Plavix at the end of the procedure. He tolerated the procedure well and he was transferred back to his room. TOTAL FLUORO TIME: 15.22 minutes. TOTAL AIR KERMA: 2066 mGy. TOTAL CONTRAST VOLUME: 120 mL. HEMODYNAMICS: AO 106/66, mean 82. CORONARY ANGIOGRAPHY: This is a right dominant circulation. Left main: This arises from the left coronary cusp. It trifurcates into left anterior descending, ramus, and circumflex vessels. The left main is free of disease. Left anterior descending: This has a 40% proximal and a 40% to 50% mid segment stenosis, but no obstructive lesions. The diagonal branch has mild disease. Ramus vessel: This is moderate size and has mild disease. Circumflex vessel: This is a moderate-sized vessel. It is nondominant. It has mild disease. Right coronary artery. This arises from the right coronary cusp. It is a very large and dominant vessel. It has an 80% mid segment eccentric and hazy stenosis. This was reduced to 0% by a Synergy drug-eluting stent. The distal RCA has mild disease. SUMMARY OF FINDINGS: 1. Severe single-vessel coronary artery disease. 2. 80% eccentric and hazy stenosis in the mid RCA reduced to 0% by a Synergy drug-eluting stent. 3. 40% proximal and 40% to 50% mid LAD stenosis with mild disease in the diagonal branch. 4. Mild disease in a nondominant circumflex and mild disease in a ramus vessel. RECOMMENDATIONS: 1. Statin therapy for life. 2. Clopidogrel therapy for 12 months after acute coronary syndrome presentation. 3. Resume anticoagulation therapy for pulmonary embolism. 4. Aspirin therapy for a minimum of 1 month after ACS and drug-eluting stenting. We can consider stopping aspirin therapy in about a month and continue clopidogrel and anticoagulation therapy. 5. Follow up in Cardiology Clinic. Electronically Signed by: Willie Del Cid M.D. 07/03/2019 01:10 P Willie Del Cid M.D. Date Dict: 06/02/2019/01:28 P/Willie Del Cid M.D. Date Trans: 06/03/2019 04:36 Trudi/elías [id number] cc: Benedict Vallecillo M.D. [address] [facility] [address] Normal [facility] MAGNESIUM BLOODon 06-03-2019 Magnesium [Mass/Vol] 1.9 mg/dL Normal 1.9-2.7 [facility] Comment on above: Order Comment: No: D o not add to previous draw Performed By: #### 3 1046, 15269, 31952, 93674 #### [facility] [address] [place] [address], [facility] PHOSPHORUS BLOODon 9 Phosphate [Mass/Vol] 2.3 mg/dL Low 2.5-5.0 [facility] Comment on above: Order Comment: No: D o not add to previous draw Performed By: #### 3 1046, 65182, 40210, 39200 #### [facility] [address] [place] [address], [facility] POC GLUCOSE LABon 06-03-2019 Glucose [Mass/Vol] 175 mg/dL High 70-100 [facility] Comment on above: Performed By: #### 5 3629, 60059, 43224, 83164 #### [facility] [address] [facility] [address], [facility] Glucose [Mass/Vol] 223 mg/dL High 70-100 [facility] Comment on above: Performed By: #### 5 3629, 62263, 26150, 93330 #### [facility] [address] [place] [address], [facility] Glucose [Mass/Vol] 156 mg/dL High 70-100 [facility] Comment on above: Performed By: #### 5 3629, 13421, 39773, 37674 #### [facility] [address] [place] [address], [facility] UFH HEPARIN ASSAYon 06-03-20 19 UNFRACTIONATED HEPARIN 0.20 IU/mL Low 0.30-0.70 [facility] Comment on above: Result Comment: Rosanne roxaban and Apixaban will interfere with the anti Xa assay used to monitor UFH and LMWH. Performed By: #### 5 3629, 30429, 43028, 44317 #### [facility] [address] [place] [id number], [facility] UNFRACTIONATED HEPARIN <0.10 Critically low 0.30-0.70 [facility] Comment on above: Result Comment: Rosanne roxaban and Apixaban will interfere with the anti Xa assay used to monitor UFH and LMWH. Result called to TRAVIS ANDREW 0737 Performed By: #### 5 3629, 28945, 22962, 93863 #### [facility] [address] [place] [address], [facility] BASIC METABOLIC PANELon - Calcium [Mass/Vol] 8.4 mg/dL Low 8.6-10.3 [facility] Comment on above: Order Comment: No: D o not add to previous draw Performed By: #### 3 1046, 94797, 96946, 48057 #### [facility] [address] [place] [address], [facility] Chloride [Moles/Vol] 103 mmol/L Normal 98-107 [facility] Comment on above: Order Comment: No: D o not add to previous draw Performed By: #### 3 1046, 97330, 01737, 89040 #### [facility] [address] [place] [address], [facility] CO2 [Moles/Vol] 26 mmol/L Normal 21-31 [facility] Comment on above: Order Comment: No: D o not add to previous draw Performed By: #### 3 1046, 66019, 47243, 04841 #### [facility] [address] [place] [address], [facility] Creatinine [Mass/Vol] 1.07 mg/dL Normal 0.70-1.30 [facility] Comment on above: Order Comment: No: D o not add to previous draw Performed By: #### 3 1046, 31728, 43628, 05654 #### [facility] [address] [place] [address], [place] GFR/1.73 sq M predicted among blacks MDRD (S/P/Bld) [Vol rate/Area] mL/min/{1.73_m2} Normal >60 [facility] Comment on above: Order Comment: No: D o not add to previous draw Result Comment: Calc ulation may not be valid for patients over 70 years Performed By: #### 3 1046, 53311, 10055, 73184 #### [facility] [address] [place] [address], [place] GFR/1.73 sq M predicted among non-blacks MDRD (S/P/Bld) [Vol rate/Area] mL/min/{1.73_m2} Normal >60 [facility] Comment on above: Order Comment: No: D o not add to previous draw Result Comment: Calc ulation may not be valid for patients over 70 years Performed By: #### 3 1046, 63574, 55484, 63013 #### [facility] [address] [place] [address], [place] Glucose [Mass/Vol] 155 mg/dL High 70-100 [facility] Comment on above: Order Comment: No: D o not add to previous draw Performed By: #### 3 1046, 93442, 04455, 19629 #### [facility] [address] [place] [address], [place] Potassium [Moles/Vol] 4.7 mmol/L Normal 3.5-5.1 [facility] Comment on above: Order Comment: No: D o not add to previous draw Performed By: #### 3 1046, 47220, 16821, 98722 #### [facility] [address] [place] [address], [place] Sodium [Moles/Vol] 135 mmol/L Low 136-145 [facility] Comment on above: Order Comment: No: D o not add to previous draw Performed By: #### 3 1046, 70373, 64918, 93792 #### [facility] [address] [place] [address], [facility] Urea nitrogen [Mass/Vol] 17 mg/dL Normal 7-25 [facility] Comment on above: Order Comment: No: D o not add to previous draw Performed By: #### 3 1046, 97007, 60369, 79896 #### [facility] [address] [place] [address], [facility] CBC COMPLETE BLOOD COUNTon - Erythrocyte distribution width (RBC) [Ratio] 14.3 % Normal 11.5-15.0 [facility] Comment on above: Order Comment: No: D o not add to previous draw Performed By: #### 3 1046, 81445, 47334, 21537 #### [facility] [address] [place] [address], [facility] Hematocrit (Bld) [Volume fraction] 46.3 % Normal 39.0-50.0 [facility] Comment on above: Order Comment: No: D o not add to previous draw Performed By: #### 3 1046, 84217, 18749, 32458 #### [facility] [address] [place] [address], [facility] Hemoglobin (Bld) [Mass/Vol] 14.7 g/dL Normal 13.0-17.0 [facility] Comment on above: Order Comment: No: D o not add to previous draw Performed By: #### 3 1046, 13128, 72599, 90432 #### [facility] [address] [place] [address], [place] IMM PLATELET FRAC 3.4 % Normal 0.8-6.3 [facility] Comment on above: Order Comment: No: D o not add to previous draw Performed By: #### 3 1046, 49291, 36187, 42253 #### [facility] [address] MCH (RBC) [Entitic mass] 29.0 pg Normal 27.0-33.0 [facility] Comment on above: Order Comment: No: D o not add to previous draw Performed By: #### 3 1046, 73496, 35404, 58077 #### [facility] [address] [place] [address], [facility] MCHC (RBC) [Mass/Vol] 31.7 g/dL Low 32.0-35.0 [facility] Comment on above: Order Comment: No: D o not add to previous draw Performed By: #### 3 1046, 44289, 56622, 41490 #### [facility] 3000 [facility]. [address] MCV (RBC) [Entitic vol] 91.3 fL Normal 82.0-98.0 [facility] Comment on above: Order Comment: No: D o not add to previous draw Performed By: #### 3 1046, 31258, 85196, 78853 #### [facility] [address] [facility]. [address] Nucleated RBC/100 WBC (Bld) [Ratio] 0 % Normal 0-0 [facility] Comment on above: Order Comment: No: D o not add to previous draw Performed By: #### 3 1046, 26642, 68757, 57221 #### [facility] [address] [place] [address], [facility] PLAT CNT 125 10*3/uL Low 150-400 [facility] Comment on above: Order Comment: No: D o not add to previous draw Performed By: #### 3 1046, 92507, 50360, 61100 #### [facility] [address] [facility] [address], [facility] RBC (Bld) [#/Vol] 5.07 10*6/uL Normal 4.20-5.70 [facility] Comment on above: Order Comment: No: D o not add to previous draw Performed By: #### 3 1046, 09541, 84897, 20069 #### [facility] [address] [place] [address], [facility] WBC (Bld) [#/Vol] 8.85 10*3/uL Normal 4.00-10.60 [facility] Comment on above: Order Comment: No: D o not add to previous draw Performed By: #### 3 1046, 63948, 77215, 64757 #### [facility] [address] [place] [address], [facility] Erythrocyte distribution width (RBC) [Ratio] 14.0 % Normal 11.5-15.0 [facility] Comment on above: Order Comment: No: D o not add to previous draw Performed By: #### 3 1046, 69723, 00506, 17770 #### [facility] [address] [place] [address], [facility] Hematocrit (Bld) [Volume fraction] 45.2 % Normal 39.0-50.0 [facility] Comment on above: Order Comment: No: D o not add to previous draw Performed By: #### 3 1046, 23728, 00426, 06485 #### [facility] [address] [place] [address], [facility] Hemoglobin (Bld) [Mass/Vol] 14.2 g/dL Normal 13.0-17.0 [facility] Comment on above: Order Comment: No: D o not add to previous draw Performed By: #### 3 1046, 51806, 68957, 03763 #### [facility] [address] [place] [address], [facility] IMM PLATELET FRAC 3.8 % Normal 0.8-6.3 [facility] Comment on above: Order Comment: No: D o not add to previous draw Performed By: #### 3 1046, 27716, 00929, 89900 #### [facility] [address] [place] [address], [facility] MCH (RBC) [Entitic mass] 28.9 pg Normal 27.0-33.0 [facility] Comment on above: Order Comment: No: D o not add to previous draw Performed By: #### 3 1046, 99977, 90652, 04717 #### [facility] [address] [place] [address], [facility] MCHC (RBC) [Mass/Vol] 31.4 g/dL Low 32.0-35.0 [facility] Comment on above: Order Comment: No: D o not add to previous draw Performed By: #### 3 1046, 26184, 27881, 12427 #### [facility] [address] [place] [address], [facility] MCV (RBC) [Entitic vol] 92.1 fL Normal 82.0-98.0 [facility] Comment on above: Order Comment: No: D o not add to previous draw Performed By: #### 3 1046, 07243, 95553, 47035 #### [facility] [address] [facility]. [address] Nucleated RBC/100 WBC (Bld) [Ratio] 0 % Normal 0-0 [facility] Comment on above: Order Comment: No: D o not add to previous draw Performed By: #### 3 1046, 75033, 92624, 48088 #### [facility] [address] [place] [address], [facility] PLAT CNT 119 10*3/uL Low 150-400 [facility] Comment on above: Order Comment: No: D o not add to previous draw Performed By: #### 3 1046, 42070, 61874, 30470 #### [facility] [address] [place] [id number], [facility] RBC (Bld) [#/Vol] 4.91 10*6/uL Normal 4.20-5.70 [facility] Comment on above: Order Comment: No: D o not add to previous draw Performed By: #### 3 1046, 99691, 70078, 76484 #### [facility] [address] WBC (Bld) [#/Vol] 8.36 10*3/uL Normal 4.00-10.60 [facility] Comment on above: Order Comment: No: D o not add to previous draw Performed By: #### 3 1046, 14468, 93487, 79517 #### [facility] [address] [facility]. [address] Cardiovascular Lab Reporton 06-02-2019 Cardiovascular Lab Report [facility] Patient Name: Serge Shine [facility] MR #: [id number] Physician: Willie Madrigal of [facility] Service Date: 06/01/2019 Division of Birthdate: 1945 Cardiology Room #: 3CD [id number] Adult Cardiovascular Services [facility] [address] [place] [address] Cardiovascular Laboratory Report INDICATION: The patient is a 74-year-old man, who was admitted with massive pulmonary embolism. He was found to have bilateral pulmonary embolism and developed a short period of cardiac arrest that was resuscitated within a few minutes. He regained full consciousness and stabilized hemodynamically. He was started on anticoagulation and he was admitted to the medical ICU. His hemodynamics were stable and he was requiring a small amount of oxygen. His troponin was elevated. His echocardiogram showed evidence of right ventricular strain with elevated RV to LV ratio. Because of that he was referred for EKOS treatment of acute pulmonary embolism complicated by acute cor pulmonale. PROCEDURES: 1. Access into the right internal jugular vein under ultrasound guidance. 2. Right heart catheterization. 3. Placement of bilateral EKOS catheters in the right and left segmental pulmonary arteries with initiation of catheter-directed thrombolysis for acute pulmonary embolism. METHOD: The procedure was explained to the patient with risks and benefits. He signed informed consent. He was brought to the general production laborer in a fasting state. The right neck area was prepped and draped in usual fashion. Using ultrasound guidance and micropuncture technique, 2 separate accesses were obtained in the right internal jugular vein and two 6-German x 11 cm sheaths were placed. A 6-German Cespedes catheter was used for right heart catheterization with measurement of pressures and calculation of cardiac output using the estimated Brandon method. Using an angled Koo wire, the catheter was directed to the left pulmonary artery and over an angled Glidewire, the catheter was directed into a segmental branch of the pulmonary artery. The wire was advanced distally and the catheter was retrieved. An EKOS catheter with a 12 cm infusion length was then advanced over the wire into the left inferior segmental pulmonary artery. The ultrasonic component was attached and the catheter was secured in place. Through the 2nd access sheath, the Cespedes catheter was advanced into the right pulmonary artery and using an angled Glidewire, we selected the inferior segmental pulmonary artery, the catheter was then exchanged over the wire to the EKOS infusion catheter with an 18 cm infusion length. The ultrasonic component catheter was then attached and secured in place. The patient tolerated the procedure well. Catheter-directed thrombolysis was then initiated using 1 mg/hour of tPA in each of those catheters. Heparin infusion was started in the access sheaths at 250 units/hour each and the peripheral heparin was reduced to 500 units/hour. The patient tolerated the procedure well and was transferred back to his room. TOTAL FLUORO TIME: 18.57 minutes. TOTAL CONTRAST VOLUME: 0 mL. TOTAL AIR KERMA: 486 mGy. HEMODYNAMICS: RA 14, RV 68/6, 20. PA 72/26, mean 42. Pulmonary capillary wedge pressure: This was not able to be measured likely related to the diffuse clot burden. Blood pressure 121/71. Heart rate 96 bpm. RECOMMENDATIONS: 1. Continue EKOS catheter-directed lysis for total of 8 hours. 2. Further recommendations per inpatient Cardiology service. Electronically Signed by: Willie De lCid M.D. 07/03/2019 12:18 P Willie Del Cid M.D. Date Dict: 06/01/2019/10:49 A/Willie Del Cid M.D. Date Trans: 06/02/2019 08:24 Trudi/elías [id number] cc: Benedict Vallecillo M.D. [address] [place] [address] [place] [facility] Cardiovascular Lab Report [facility] Patient Name: Serge Shine [facility] MR #: [id number] Physician: Willie Madrigal of [facility] Service Date: 06/01/2019 Division of Birthdate: 1945 Cardiology Room #: 3CD [id number] Adult Cardiovascular Services [facility] [address] [place], [place] [address] Cardiovascular Laboratory Report CLINICAL PRESENTATION: The patient is a 74-year-old male, with PMH of DM, presented with severe shortness of breath, tachypneic and tachycardic. He was diagnosed with acute massive PE. His CT and echo were consistent with acute cor pulmonale with significant RV enlargement. In addition, his biomarkers were elevated. Today, he was treated with EKOS catheter directed thrombolysis and this evening he completed his CDT treatment. PLAN: The patient has finished catheter directed thrombolysis with tPA. He received a total of approximately 6 mg of tPA which infused over 8 hours. We have removed catheters and we will remove the sheath in another 2 hours. We will continue heparin drip. The patient will follow up with Dr. Del Cid in 3-4 weeks. Repeat echocardiogram to be done to reassess RV size and function. PROCEDURE: Removal of the venous infusion catheter. INDICATION: Acute massive PE and acute cor pulmonale. DESCRIPTION OF THE PROCEDURE: At the end of the treatment, tPA was discontinued. EKOS was turned off. The catheters were removed at the bedside. Manual pressure will be applied to obtain hemostasis. There were no complications. We will continue IV heparin, can be switched to PO anticoagulation before discharge. Reviewed By: Claudia Garcia MD 06/02/2019 01:28 P Electronically Signed by: Willie Del Cid M.D. 07/03/2019 12:18 P Willie Del Cid M.D. I was not present but assume all responsibility for the procedure. NOT BILLABLE Date Dict: 06/01/2019/06:11 Luis/Claudia Garcia MD Date Trans: 06/02/2019 08:22 Trudi/elías [id number] cc: Benedict Vallecillo M.D. [address] [facility] [address] Normal [facility] FIBRINOGENon 06-02-2019 FIBRINOGEN 404 mg/dL Normal 150-425 [facility] Comment on above: Order Comment: No: D o not add to previous draw Performed By: #### 3 1046, 92066, 79918, 17536 #### [facility] [address] [place] [address], [facility] FIBRINOGEN 374 mg/dL Normal 150-425 [facility] Comment on above: Order Comment: No: D o not add to previous draw Performed By: #### 3 1046, 93020, 11386, 68867 #### [facility] [address] [place] [address], [facility] MAGNESIUM BLOODon 06-02-2019 Magnesium [Mass/Vol] 2.0 mg/dL Normal 1.9-2.7 [facility] Comment on above: Order Comment: No: D o not add to previous draw Performed By: #### 3 1046, 09188, 44834, 67747 #### [facility] [address] [place] [address], [facility] PHOSPHORUS BLOODon 9 Phosphate [Mass/Vol] 3.3 mg/dL Normal 2.5-5.0 [facility] Comment on above: Order Comment: No: D o not add to previous draw Performed By: #### 3 1046, 45137, 06990, 29459 #### [facility] [address] [place] [address], [facility] POC GLUCOSE LABon 06-02-2019 Glucose [Mass/Vol] 144 mg/dL High 70-100 [facility] Comment on above: Performed By: #### 3 1046, 65542, 44849, 43279 #### [facility] [address] [place] [address], [facility] Glucose [Mass/Vol] 203 mg/dL High 70-100 [facility] Comment on above: Performed By: #### 3 1046, 15060, 06143, 13567 #### [facility] [address] [place] [address], [facility] Glucose [Mass/Vol] 141 mg/dL High 70-100 [facility] Comment on above: Performed By: #### 3 1046, 70959, 82003, 07753 #### [facility] [address] [facility] [address], [facility] TROPONIN-Ion 06-02-2019 Troponin I.cardiac [Mass/Vol] 0.17 ng/mL Critically high 0.00-0.04 [facility] Comment on above: Order Comment: No: D o not add to previous draw Result Comment: M-ND EVIOUS CRITICAL RESULT REFERENCE RANGES: 0.00 - 0.04 ng/ml NORMAL 0.05 - 0.50 ng/ml INDETERMINATE > 0.50 ng/ml CONSISTENT WITH AN M.I. Performed By: #### 3 1046, 22493, 26285, 68754 #### [facility] [address] [facility] [address], [facility] UFH HEPARIN ASSAYon 06-02-20 19 UNFRACTIONATED HEPARIN 0.41 IU/mL Normal 0.30-0.70 [facility] Comment on above: Result Comment: [place] roxaban and Apixaban will interfere with the anti Xa assay used to monitor UFH and LMWH. Performed By: #### 3 1046, 46023, 58570, 65178 #### [facility] [address] [place] [address], [facility] UNFRACTIONATED HEPARIN >1.00 Critically high 0.30-0.70 [facility] Comment on above: Order Comment: This order is a replacement of the rejected order with accession [id number]. Result Comment: [place] roxaban and Apixaban will interfere with the anti Xa assay used to monitor UFH and LMWH. PATIENT ON HEPARING FROM EMOTIONAL DISABILITIES TEACHER, ELENITA VALENTE R.N. STATES NO WHERE TO DRAW THIS PATIENT EXCEPT ABOVE AN IV SITE, AFTER IV HAS BEEN TURNED OFF FOR ONE HALF HOUR. RESULTS MAY NOT BE ACCURATE UFH 1.15 Performed By: #### 3 1046, 12179, 59605, 18648 #### [facility] [address] UNFRACTIONATED HEPARIN 0.20 IU/mL Low 0.30-0.70 [facility] Comment on above: Result Comment: [place] roxaban and Apixaban will interfere with the anti Xa assay used to monitor UFH and LMWH. Performed By: #### 3 1046, 29434, 53401, 19460 #### [facility] [address] APTTon 06-01-2019 aPTT Coag (Bld) [Time] 60.4 s High 25.0-35.0 [facility] Comment on above: Order Comment: No: D o not add to previous draw Result Comment: ALL RESULTS MUST BE INTERPRETED WITH RESPECT TO BLOOD DRAWING ARTIFACT OR DILUTION ERROR OF ANTICOAGULANT AT THE TIME OF SAMPLING. THE APTT SHOULD NOT BE USED TO MONITOR UNFRACTIONATED HEPARIN THERAPY, THIS LABORATORY NO LONGER HAS AN ESTABLISHED THERAPEUTIC RANGE BASED ON THE APTT. IT IS RECOMMENDED THAT THE UFH - HEPARIN ASSAY (ANTI-XA ACTIVITY) BE USED FOR THIS PURPOSE. Performed By: #### 3 1046, 10179, 13426, 96382 #### [facility] [address] BASIC METABOLIC PANELon 05-15 Calcium [Mass/Vol] 8.7 mg/dL Normal 8.6-10.3 [facility] Comment on above: Order Comment: No: D o not add to previous draw Performed By: #### 3 1046, 43120, 68329, 31200 #### [facility] [address] [place] [address], [place] Chloride [Moles/Vol] 103 mmol/L Normal 98-107 [facility] Comment on above: Order Comment: No: D o not add to previous draw Performed By: #### 3 1046, 62366, 90605, 28425 #### [facility] [address] [place] [address], [place] CO2 [Moles/Vol] 26 mmol/L Normal 21-31 [facility] Comment on above: Order Comment: No: D o not add to previous draw Performed By: #### 3 1046, 09757, 50472, 10622 #### [facility] [address] [place] [address], [place] Creatinine [Mass/Vol] 1.19 mg/dL Normal 0.70-1.30 [facility] Comment on above: Order Comment: No: D o not add to previous draw Performed By: #### 3 1046, 86979, 71273, 29382 #### [facility] [address] [place] [address], [place] GFR/1.73 sq M predicted among blacks MDRD (S/P/Bld) [Vol rate/Area] mL/min/{1.73_m2} Normal >60 [facility] Comment on above: Order Comment: No: D o not add to previous draw Result Comment: Calc ulation may not be valid for patients over 70 years Performed By: #### 3 1046, 48906, 40814, 12986 #### [facility] [address] [place] [address], [place] GFR/1.73 sq M predicted among non-blacks MDRD (S/P/Bld) [Vol rate/Area] 60 ml/min/1.73sq m Abnormal >60 [facility] Comment on above: Order Comment: No: D o not add to previous draw Result Comment: Calc ulation may not be valid for patients over 70 years Performed By: #### 3 1046, 32039, 47505, 61219 #### [facility] [address] [place] [address], [place] Glucose [Mass/Vol] 144 mg/dL High 70-100 [facility] Comment on above: Order Comment: No: D o not add to previous draw Performed By: #### 3 1046, 14859, 55326, 11825 #### [facility] [address] [place] [address], [place] Potassium [Moles/Vol] 4.6 mmol/L Normal 3.5-5.1 [facility] Comment on above: Order Comment: No: D o not add to previous draw Performed By: #### 3 1046, 49986, 00995, 77338 #### [facility] [address] [place] [address], [place] Sodium [Moles/Vol] 137 mmol/L Normal 136-145 [facility] Comment on above: Order Comment: No: D o not add to previous draw Performed By: #### 3 1046, 73237, 53490, 08684 #### [facility] [address] [place] [address], [place] Urea nitrogen [Mass/Vol] 21 mg/dL Normal 7-25 [facility] Comment on above: Order Comment: No: D o not add to previous draw Performed By: #### 3 1046, 02694, 38663, 71661 #### [facility] [address] [place] [address], [place] CBC COMPLETE BLOOD COUNTon 0 - Erythrocyte distribution width (RBC) [Ratio] 14.3 % Normal 11.5-15.0 [facility] Comment on above: Order Comment: No: D o not add to previous draw Performed By: #### 3 1046, 74664, 27639, 29710 #### [facility] [address] [place] [address], [place] Hematocrit (Bld) [Volume fraction] 48.1 % Normal 39.0-50.0 [facility] Comment on above: Order Comment: No: D o not add to previous draw Performed By: #### 3 1046, 44544, 45056, 33806 #### [facility] [address] [place] [address], [facility] Hemoglobin (Bld) [Mass/Vol] 15.1 g/dL Normal 13.0-17.0 [facility] Comment on above: Order Comment: No: D o not add to previous draw Performed By: #### 3 1046, 69389, 96189, 55802 #### [facility] [address] [place] [address], [facility] MCH (RBC) [Entitic mass] 28.9 pg Normal 27.0-33.0 [facility] Comment on above: Order Comment: No: D o not add to previous draw Performed By: #### 3 1046, 17593, 76241, 20860 #### [facility] [address] [place] [address], [facility] MCHC (RBC) [Mass/Vol] 31.4 g/dL Low 32.0-35.0 [facility] Comment on above: Order Comment: No: D o not add to previous draw Performed By: #### 3 1046, 73048, 72935, 74011 #### [facility] [address] [place] [id number], [facility] MCV (RBC) [Entitic vol] 92.1 fL Normal 82.0-98.0 [facility] Comment on above: Order Comment: No: D o not add to previous draw Performed By: #### 3 1046, 38057, 99929, 10311 #### [facility] [address] [place] [id number], [facility] Nucleated RBC/100 WBC (Bld) [Ratio] 0 % Normal 0-0 [facility] Comment on above: Order Comment: No: D o not add to previous draw Performed By: #### 3 1046, 13899, 92153, 55995 #### [facility] [address] [place] [address], [facility] PLAT CNT 137 10*3/uL Low 150-400 [facility] Comment on above: Order Comment: No: D o not add to previous draw Performed By: #### 3 1046, 11943, 04092, 81609 #### [facility] [address] [place] [address], [facility] RBC (Bld) [#/Vol] 5.22 10*6/uL Normal 4.20-5.70 [facility] Comment on above: Order Comment: No: D o not add to previous draw Performed By: #### 3 1046, 73883, 06033, 71242 #### [facility] [address] [place] [address], [facility] WBC (Bld) [#/Vol] 10.11 10*3/uL Normal 4.00-10.60 [facility] Comment on above: Order Comment: No: D o not add to previous draw Performed By: #### 3 1046, 14542, 19474, 54831 #### [facility] [address] [place] [address], [facility] Erythrocyte distribution width (RBC) [Ratio] 14.4 % Normal 11.5-15.0 [facility] Comment on above: Order Comment: No: D o not add to previous draw Performed By: #### 3 1046, 68170, 19727, 05981 #### [facility] [address] [place] [address], [facility] Hematocrit (Bld) [Volume fraction] 45.3 % Normal 39.0-50.0 [facility] Comment on above: Order Comment: No: D o not add to previous draw Performed By: #### 3 1046, 08839, 36234, 74137 #### [facility] [address] Hemoglobin (Bld) [Mass/Vol] 14.3 g/dL Normal 13.0-17.0 [facility] Comment on above: Order Comment: No: D o not add to previous draw Performed By: #### 3 1046, 90839, 44577, 37082 #### [facility] [address] [place] [address], [facility] IMM PLATELET FRAC 3.3 % Normal 0.8-6.3 [facility] Comment on above: Order Comment: No: D o not add to previous draw Performed By: #### 3 1046, 44798, 28360, 07291 #### [facility] [address] [place] [address], [facility] MCH (RBC) [Entitic mass] 29.1 pg Normal 27.0-33.0 [facility] Comment on above: Order Comment: No: D o not add to previous draw Performed By: #### 3 1046, 58702, 59043, 10320 #### [facility] [address] [place] [address], [facility] MCHC (RBC) [Mass/Vol] 31.6 g/dL Low 32.0-35.0 [facility] Comment on above: Order Comment: No: D o not add to previous draw Performed By: #### 3 1046, 03723, 11957, 14533 #### [facility] [address] [place] [address], [facility] MCV (RBC) [Entitic vol] 92.1 fL Normal 82.0-98.0 [facility] Comment on above: Order Comment: No: D o not add to previous draw Performed By: #### 3 1046, 53722, 96055, 29431 #### [facility] [address] [place] [address], [facility] Nucleated RBC/100 WBC (Bld) [Ratio] 0 % Normal 0-0 [facility] Comment on above: Order Comment: No: D o not add to previous draw Performed By: #### 3 1046, 16298, 71978, 85501 #### [facility] [address] [place] [address], [facility] PLAT CNT 137 10*3/uL Low 150-400 [facility] Comment on above: Order Comment: No: D o not add to previous draw Performed By: #### 3 1046, 18988, 73474, 95877 #### [facility] [address] [place] [address], [facility] RBC (Bld) [#/Vol] 4.92 10*6/uL Normal 4.20-5.70 [facility] Comment on above: Order Comment: No: D o not add to previous draw Performed By: #### 3 1046, 09995, 21902, 81119 #### [facility] [address] [facility] [address], [facility] WBC (Bld) [#/Vol] 9.17 10*3/uL Normal 4.00-10.60 [facility] Comment on above: Order Comment: No: D o not add to previous draw Performed By: #### 3 1046, 33226, 69793, 64603 #### [facility] [address] [facility] [place] [id number], [facility] Erythrocyte distribution width (RBC) [Ratio] 14.4 % Normal 11.5-15.0 [facility] Comment on above: Order Comment: No: D o not add to previous draw Performed By: #### 3 1046, 94790, 51335, 51227 #### [facility] [address] [facility] [place] [id number], [facility] Hematocrit (Bld) [Volume fraction] 46.9 % Normal 39.0-50.0 [facility] Comment on above: Order Comment: No: D o not add to previous draw Performed By: #### 3 1046, 35786, 67356, 10127 #### [facility] [address] [place] [address], [facility] Hemoglobin (Bld) [Mass/Vol] 14.6 g/dL Normal 13.0-17.0 [facility] Comment on above: Order Comment: No: D o not add to previous draw Performed By: #### 3 1046, 27304, 24756, 37578 #### [facility] [address] [place] [address], [facility] MCH (RBC) [Entitic mass] 28.7 pg Normal 27.0-33.0 [facility] Comment on above: Order Comment: No: D o not add to previous draw Performed By: #### 3 1046, 01228, 85790, 36625 #### [facility] [address] [place] [address], [facility] MCHC (RBC) [Mass/Vol] 31.1 g/dL Low 32.0-35.0 [facility] Comment on above: Order Comment: No: D o not add to previous draw Performed By: #### 3 1046, 85285, 16640, 82805 #### [facility] [address] [facility] [address], [facility] MCV (RBC) [Entitic vol] 92.3 fL Normal 82.0-98.0 [facility] Comment on above: Order Comment: No: D o not add to previous draw Performed By: #### 3 1046, 01267, 94257, 00431 #### [facility] [address] [facility] [place] [id number], [facility] Nucleated RBC/100 WBC (Bld) [Ratio] 0 % Normal 0-0 [facility] Comment on above: Order Comment: No: D o not add to previous draw Performed By: #### 3 1046, 96821, 77152, 95527 #### [facility] [address] [place] [address], [facility] PLAT CNT 149 10*3/uL Low 150-400 [facility] Comment on above: Order Comment: No: D o not add to previous draw Performed By: #### 3 1046, 62198, 39213, 30518 #### [facility] [address] [place] [address], [facility] RBC (Bld) [#/Vol] 5.08 10*6/uL Normal 4.20-5.70 [facility] Comment on above: Order Comment: No: D o not add to previous draw Performed By: #### 3 1046, 37459, 02360, 86980 #### [facility] [address] [place] [address], [facility] WBC (Bld) [#/Vol] 8.84 10*3/uL Normal 4.00-10.60 [facility] Comment on above: Order Comment: No: D o not add to previous draw Performed By: #### 3 1046, 04780, 14153, 87051 #### [facility] [address] CEAon 06-01-2019 CEA 0.6 ng/mL Normal 0.0-3.0 [facility] Comment on above: Order Comment: No: D o not add to previous draw Performed By: #### 3 1046, 68437, 57655, 66464 #### [facility] [address] ABDOMEN AND PELVIS WO CON TRASTon 06-01-2019 CT ABDOMEN AND PELVIS WO CONTRAST [facility] Department of Radiology [address] [place] [address] ======== Patient Name: SERGE SHINE : 1945 Sex: M Age: Race: White Pt. Location: [id number] Patient Status: I Ordered Date: 06/01/2019 7:25:00 PM Completed Date: 06/01/2019 08:54 PM Requesting Provider: STEPHANIE YU Attending Provider: SHEILA SALAZAR Report Copy To: Signs & Symptoms: Abnormal Bleeding History: See Comments Comments: R/O Retroperitoneal Mass/Abscess, r/o retroperitoneal bleed s/p tPA Exam: CT ABDOMEN AND PELVIS WO CONTRAST ======== CT ABDOMEN AND PELVIS WO CONTRAST 06/01/2019 8:54 PM EDT SIGNS AND SYMPTOMS: Abnormal Bleeding TECHNOLOGIST COMMENTS: SOB post TPA. QUESTION FOR THE RADIOLOGIST: R/O Retroperitoneal Mass/Abscess, r/o retroperitoneal bleed s/p tPA PROTOCOL: Axial CT images of the abdomen and pelvis were obtained without IV contrast. TECHNIQUE: Multidetector ct axial images of the abdomen and pelvis were obtained without IV contrast. Multiplanar reformats were performed and viewed on a separate workstation and reviewed to further define anatomy and possible pathology. Appropriate CT dose lowering techniques were utilized. COMPARISON: None. FINDINGS: Lower Chest: Please see separately dictated CT chest. Liver: Unremarkable. Bile Ducts: Normal caliber. Gallbladder: Mild strand-like density adjacent to the gallbladder. No definite wall thickening or stones. If there is concern for acute cholecystitis ultrasonography and/or HIDA scan may be helpful for further evaluation Pancreas: Mild fatty involution otherwise unremarkable. Spleen: Unremarkable. Adrenals: Unremarkable. Kidneys: Right kidney is unremarkable. Nonobstructive 2 mm stone within the inferior pole of the left kidney. No hydronephrosis. Reproductive Organs: Prostate and seminal vesicles are unremarkable. Ureters: Unremarkable. Bladder: Decompressed by Daniels catheter with intraluminal air. Bowel: Normal caliber. Uncomplicated diverticulosis. Postsurgical changes along the transverse colon in the left upper quadrant. Mesenteric Lymph Nodes: No enlarged mesenteric lymph nodes. Peritoneum: No ascites or free air, no fluid collection. Vessels: There is moderate atherosclerotic calcification throughout the abdominal aorta and severe atherosclerotic calcification infrarenally and into the [place] iliac arteries. There is a infrarenal abdominal aortic dilatation measuring 2.9 x 2.8 cm just proximal to the bifurcation. 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 The left graft extends to the left external iliac artery. The right graft extends to the common iliac artery just prior to its bifurcation into the internal and external iliac arteries. 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 Retroperitoneum: No adenopathy or hematoma. Abdominal Wall: Unremarkable. Bones: No acute bony abnormality. Degenerative changes of the lumbar spine most prominent from L3 to S1. IMPRESSION: 1. Faint strand-like density around the gallbladder but no definite wall thickening or stones. If there is concern for acute cholecystitis recommendation is made for HIDA scan or ultrasound. 2. Nonobstructive 2 mm left renal stone in the inferior pole. 3. Uncomplicated diverticulosis. 4. 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 Approved by:Gui Coello on 06/01/2019 9:32 PM EDT. I, Lyndsey Rojas, have reviewed the images and report and concur with these findings. Electronically signed by:Lyndsey Rojas. Transcribed by: [email or web address], User Resident: GUI COELLO Electronically Signed by: LYNDSEY ROJAS @ 06/02/2019 12:31 PM I personally read this/these film(s) with this resident Normal [facility] Comment on above: Order Comment: R/O R etroperitoneal Mass/Abscess, r/o retroperitoneal bleed s/p tPA CT CHEST WO CONTRASTon 06-01 CT CHEST WO CONTRAST [facility] Department of Radiology [address] [place] [id number] ======== Patient Name: SERGE SHINE : 1945 Sex: M Age: Race: White Pt. Location: [id number] Patient Status: I Ordered Date: 06/01/2019 7:10:00 PM Completed Date: 06/01/2019 08:54 PM Requesting Provider: SHEILA SALAZAR Attending Provider: SHEILA SALAZAR Report Copy To: Signs & Symptoms: Shortness of Breath History: See Comments Comments: Other, r/o bleed post TPA Exam: CT CHEST WO CONTRAST ======== CT CHEST WO CONTRAST 06/01/2019 8:54 PM EDT SIGN AND SYMPTOMS: Shortness of Breath TECHNOLOGIST COMMENTS: SOB post TPA. QUESTIONS PER RADIOLOGIST: Other, r/o bleed post TPA PROTOCOL: Axial CT images of the chest were obtained without IV contrast. TECHNIQUE: Multidetector CT axial slices of the chest were obtained without IV contrast. Multiplanar reformats were performed and viewed on a separate workstation and reviewed to further define anatomy and possible pathology.Appropriate CT dose lowering techniques were utilized. COMPARISON: Outside hospital CTA chest May 31, 2019. FINDINGS: Lower neck: Thyroid gland is unremarkable. No supraclavicle adenopathy. Part of right IJ line is seen in place Vessels: No aneurysmal dilatation of the thoracic aorta with mild atherosclerotic calcification. There is hyperdensity within the right and left main pulmonary arteries corresponding to pulmonary emboli seen on outside hospital CTA chest. Mediastinum and Delfina: Small paratracheal and AP window lymph nodes, none of which measure greater than 1 cm in short axis dimension. Heart: Normal size. No pericardial effusion. Coronary artery calcification, most prominent in the LAD. Airways: Patent. Lungs: Emphysematous changes, predominantly paraseptal and in the lung apices. Bibasilar atelectasis. Pleura: No pleural effusion or pneumothorax. Chest Wall: Unremarkable apart from incidental small lipoma in the right subscapularis muscle. Bones: Mild thoracic spondylosis. No acute bony abnormality. Upper Abdomen: Please see separately dictated CT abdomen and pelvis. IMPRESSION: 1. Hyperdensity within the right and left main pulmonary artery corresponding to pulmonary emboli seen on outside hospital CTA chest from May 31, 2019. 2. No evidence of intrathoracic hemorrhage. 3. Multiple small paratracheal and AP window lymph nodes, this is nonspecific and likely reactive. 4. Emphysematous changes of the lungs with bibasilar atelectasis. Approved by:Gui Coello on 06/01/2019 9:03 PM EDT. I, Franklin Molina, have reviewed the images and report and concur with these findings. Electronically signed by:Franklin Molina. Transcribed by: [email or web address], User Resident: GUI COELLO Electronically Signed by: FRANKLIN MOLINA @ 06/02/2019 11:44 AM I personally read this/these film(s) with this resident Normal [facility] Comment on above: Order Comment: Other , r/o bleed post TPA FIBRINOGENon 06-01-2019 FIBRINOGEN 386 mg/dL Normal 150-425 [facility] Comment on above: Order Comment: No: D o not add to previous draw Performed By: #### 3 1046, 89672, 04139, 44615 #### [facility] [address] [place] [address], [facility] MAGNESIUM BLOODon 06-01-2019 Magnesium [Mass/Vol] 2.1 mg/dL Normal 1.9-2.7 [facility] Comment on above: Order Comment: No: D o not add to previous draw Performed By: #### 3 1046, 77634, 15715, 04556 #### [facility] [address] [place] [address], [facility] PHOSPHORUS BLOODon 9 Phosphate [Mass/Vol] 3.3 mg/dL Normal 2.5-5.0 [facility] Comment on above: Order Comment: No: D o not add to previous draw Performed By: #### 3 1046, 59354, 16481, 20606 #### [facility] [address] [place] [address], [facility] POC GLUCOSE LABon 06-01-2019 Glucose [Mass/Vol] 207 mg/dL High 70-100 [facility] Comment on above: Performed By: #### 3 1046, 68930, 25414, 74789 #### [facility] [address] [facility] [address], [facility] Glucose [Mass/Vol] 207 mg/dL High 70-100 [facility] Comment on above: Performed By: #### 3 1046, 24358, 58457, 47371 #### [facility] [address] [place] [address], [facility] Glucose [Mass/Vol] 171 mg/dL High 70-100 [facility] Comment on above: Performed By: #### 3 1046, 54347, 59503, 26572 #### [facility] [address] [facility] [address], [facility] PROTHROMBIN TIMEon 9 INR Coag (PPP) [Relative time] 1.20 {INR} High 0.91-1.16 [facility] Comment on above: Order Comment: No: D o not add to previous draw Result Comment: ACCC P RECOMMENDED INR FOR WARFARIN THERAPY ------- ------- CONDITION INR PROPHYLAXIS OF VENOUS THROMBOSIS 2-3 (HIGH-RISK SURGERY) TREATMENT OF VENOUS THROMBOSIS 2-3 TREATMENT OF PULMONARY EMBOLISM 2-3 PREVENTION OF SYSTEMIC EMBOLISM: 2-3 ACUTE MYOCARDIAL INFARCTION TISSUE HEART VALVES VALVULAR HEART DISEASE ATRIAL FIBRILLATION RECURRENT SYSTEMIC EMBOLISM MECHANICAL HEART VALVE 2.5-3.5 FROM: ORAL ANTICOAGULANTS. MECHANISM OF ACTION, CLINICAL EFFECTIVENESS, AND OPTIMAL THERAPEUTIC RANGE. CHEST 1995;108:231S-246S. Performed By: #### 3 1046, 51277, 68011, 82564 #### [facility] [address] PT Coag (PPP) [Time] 15.3 s High 12.3-14.8 [facility] Comment on above: Order Comment: No: D o not add to previous draw Result Comment: ALL RESULTS MUST BE INTERPRETED WITH RESPECT TO BLOOD DRAWING ARTIFACT OR DILUTION ERROR OF ANTICOAGULANT AT THE TIME OF SAMPLING. Performed By: #### 3 1046, 47600, 27473, 06625 #### [facility] [address] [facility] [address] TROPONIN-Ion 06-01-2019 Troponin I.cardiac [Mass/Vol] 0.22 ng/mL Critically high 0.00-0.04 [facility] Comment on above: Order Comment: No: D o not add to previous draw Result Comment: M-ND EVIOUS CRITICAL RESULT REFERENCE RANGES: 0.00 - 0.04 ng/ml NORMAL 0.05 - 0.50 ng/ml INDETERMINATE > 0.50 ng/ml CONSISTENT WITH AN M.I. Performed By: #### 3 1046, 54042, 92976, 48938 #### [facility] [address] [place] [address], [facility] TYPE AND SCREENon 06-01-2019 ABO INTERPRETATION O Normal [facility] Comment on above: Performed By: #### 3 1046, 54420, 13242, 34912 #### [facility] [address] [place] [address], [facility] RH INTERPRETATION Positive Normal [facility] Comment on above: Performed By: #### 3 1046, 68552, 53241, 13955 #### [facility] [address] UFH HEPARIN ASSAYon 06-01-20 19 UNFRACTIONATED HEPARIN <0.10 Critically low 0.30-0.70 [facility] Comment on above: Result Comment: Rosanne roxaban and Apixaban will interfere with the anti Xa assay used to monitor UFH and LMWH. RESULTS CHECKED AND CALLED. ACCURATELY READ BACK BY TAYE MEYERS RN @ 2201 Performed By: #### 3 1046, 67302, 29096, 72600 #### [facility] [address] UNFRACTIONATED HEPARIN <0.10 Critically low 0.30-0.70 [facility] Comment on above: Order Comment: No: D o not add to previous draw Result Comment: [place] roxaban and Apixaban will interfere with the anti Xa assay used to monitor UFH and LMWH. RESULTS CHECKED AND CALLED. ACCURATELY READ BACK BY LISA VALENTE RN @ 1703 Performed By: #### 3 1046, 25654, 05437, 75094 #### [facility] [address] [facility] [address] UNFRACTIONATED HEPARIN 0.20 IU/mL Low 0.30-0.70 [facility] Comment on above: Result Comment: Rosanne roxaban and Apixaban will interfere with the anti Xa assay used to monitor UFH and LMWH. Performed By: #### 3 1046, 85222, 01462, 34177 #### [facility] [address] APTTon 05-31-2019 aPTT Coag (Bld) [Time] 65.5 s High 25.0-35.0 [facility] Comment on above: Result Comment: ALL RESULTS MUST BE INTERPRETED WITH RESPECT TO BLOOD DRAWING ARTIFACT OR DILUTION ERROR OF ANTICOAGULANT AT THE TIME OF SAMPLING. THE APTT SHOULD NOT BE USED TO MONITOR UNFRACTIONATED HEPARIN THERAPY, THIS LABORATORY NO LONGER HAS AN ESTABLISHED THERAPEUTIC RANGE BASED ON THE APTT. IT IS RECOMMENDED THAT THE UFH - HEPARIN ASSAY (ANTI-XA ACTIVITY) BE USED FOR THIS PURPOSE. Performed By: #### 5 3629, 72481, 45278, 31194 #### [facility] [address] [place] [address], [facility] BASIC METABOLIC PANELon 05-15 Calcium [Mass/Vol] 9.3 mg/dL Normal 8.6-10.3 [facility] Comment on above: Order Comment: No: D o not add to previous draw Performed By: #### 3 1046, 66688, 66428, 12262 #### [facility] [address] [place] [address], [place] Chloride [Moles/Vol] 104 mmol/L Normal 98-107 [facility] Comment on above: Order Comment: No: D o not add to previous draw Performed By: #### 3 1046, 10937, 79388, 61815 #### [facility] [address] [place] [address], [place] CO2 [Moles/Vol] 21 mmol/L Normal 21-31 [facility] Comment on above: Order Comment: No: D o not add to previous draw Performed By: #### 3 1046, 20294, 69711, 97404 #### [facility] [address] [place] [address], [place] Creatinine [Mass/Vol] 1.29 mg/dL Normal 0.70-1.30 [facility] Comment on above: Order Comment: No: D o not add to previous draw Performed By: #### 3 1046, 00804, 86858, 16586 #### [facility] [address] [place] [address], [place] GFR/1.73 sq M predicted among blacks MDRD (S/P/Bld) [Vol rate/Area] mL/min/{1.73_m2} Normal >60 [facility] Comment on above: Order Comment: No: D o not add to previous draw Result Comment: Calc ulation may not be valid for patients over 70 years Performed By: #### 3 1046, 95070, 51315, 13242 #### [facility] [address] [place] [address], [place] GFR/1.73 sq M predicted among non-blacks MDRD (S/P/Bld) [Vol rate/Area] 55 ml/min/1.73sq m Abnormal >60 [facility] Comment on above: Order Comment: No: D o not add to previous draw Result Comment: Calc ulation may not be valid for patients over 70 years Performed By: #### 3 1046, 16003, 66159, 73234 #### [facility] [address] [place] [address], [place] Glucose [Mass/Vol] 173 mg/dL High 70-100 [facility] Comment on above: Order Comment: No: D o not add to previous draw Performed By: #### 3 1046, 73965, 66169, 62786 #### [facility] [address] [place] [address], [place] Potassium [Moles/Vol] 4.6 mmol/L Normal 3.5-5.1 [facility] Comment on above: Order Comment: No: D o not add to previous draw Performed By: #### 3 1046, 74676, 96640, 14740 #### [facility] [address] [place] [address], [place] Sodium [Moles/Vol] 136 mmol/L Normal 136-145 [facility] Comment on above: Order Comment: No: D o not add to previous draw Performed By: #### 3 1046, 16013, 35942, 06710 #### [facility] [address] [place] [address], [place] Urea nitrogen [Mass/Vol] 24 mg/dL Normal 7-25 [facility] Comment on above: Order Comment: No: D o not add to previous draw Performed By: #### 3 1046, 62472, 45684, 20120 #### [facility] [address] [place] [address], [facility] BNP (B-TYPE NATRIURETIC PEPT KAMRAN)on 05-31-2019 Natriuretic peptide B (Bld) [Mass/Vol] 430 pg/mL High 0-100 [facility] Comment on above: Order Comment: Yes: Add to Previous draw if able Result Comment: Give n the appropriate clinical setting a BNP result of >100 pg/mL indicates congestive heart failure. Performed By: #### 3 1046, 37323, 14091, 64997 #### [facility] [address] [place] [address], [facility] CARDIAC MAGNESIUM BLOODon Magnesium [Mass/Vol] 2.2 mg/dL Normal 1.9-2.7 [facility] Comment on above: Performed By: #### 3 1046, 39541, 62440, 70327 #### [facility] [address] [place] [address], [facility] CBC COMPLETE BLOOD COUNTon 0 05-31-2019 Erythrocyte distribution width (RBC) [Ratio] 14.3 % Normal 11.5-15.0 [facility] Comment on above: Order Comment: No: D o not add to previous draw Performed By: #### 5 0608 #### [facility] [address] [place] [address], [facility] Hematocrit (Bld) [Volume fraction] 47.4 % Normal 39.0-50.0 [facility] Comment on above: Order Comment: No: D o not add to previous draw Performed By: #### 5 0608 #### [facility] [address] [place] [address], [facility] Hemoglobin (Bld) [Mass/Vol] 15.3 g/dL Normal 13.0-17.0 [facility] Comment on above: Order Comment: No: D o not add to previous draw Performed By: #### 5 0608 #### [facility] [address] [place] [address], [facility] MCH (RBC) [Entitic mass] 29.0 pg Normal 27.0-33.0 [facility] Comment on above: Order Comment: No: D o not add to previous draw Performed By: #### 5 0608 #### [facility] [address] [place] [address], [facility] MCHC (RBC) [Mass/Vol] 32.3 g/dL Normal 32.0-35.0 [facility] Comment on above: Order Comment: No: D o not add to previous draw Performed By: #### 5 0608 #### [facility] [address] [place] [id number], [facility] MCV (RBC) [Entitic vol] 89.8 fL Normal 82.0-98.0 [facility] Comment on above: Order Comment: No: D o not add to previous draw Performed By: #### 5 0608 #### [facility] [address] [place] [address], [facility] Nucleated RBC/100 WBC (Bld) [Ratio] 0 % Normal 0-0 [facility] Comment on above: Order Comment: No: D o not add to previous draw Performed By: #### 5 0608 #### [facility] [address] [place] [address], [facility] PLAT CNT 150 10*3/uL Normal 150-400 [facility] Comment on above: Order Comment: No: D o not add to previous draw Performed By: #### 5 0608 #### [facility] [address] [place] [id number], [facility] RBC (Bld) [#/Vol] 5.28 10*6/uL Normal 4.20-5.70 [facility] Comment on above: Order Comment: No: D o not add to previous draw Performed By: #### 5 0608 #### [facility] [address] [place] [id number], [facility] WBC (Bld) [#/Vol] 10.80 10*3/uL High 4.00-10.60 [facility] Comment on above: Order Comment: No: D o not add to previous draw Performed By: #### 5 0608 #### [facility] [address] D DIMER TESTon 05-31-2019 D-DIMER TEST 10.95 mcg/mL FEU High 0.01-0.49 [facility] Comment on above: Order Comment: No: D o not add to previous draw Result Comment: D-Di marcy values of less than 0.50 ug/ml (FEU) are considered to be a negative predictor of thrombosis. However, the D-Dimer result should be used in conjunction with pretest probability and should not be used alone to diagnose a thrombotic event. D-DIMER RESULT REPEATED AND CONFIRMED Performed By: #### 5 3629, 53279, 49869, 67920 #### [facility] [address] LACTATE BLOODon 05-31-2019 Lactate [Moles/Vol] 1.6 mmol/L Normal 0.5-2.2 [facility] Comment on above: Order Comment: Yes: Add to Previous draw if able Performed By: #### 1 0054 #### [facility] [address] [facility]. [address] PHOSPHORUS BLOODon 9 Phosphate [Mass/Vol] 4.3 mg/dL Normal 2.5-5.0 [facility] Comment on above: Order Comment: No: D o not add to previous draw Performed By: #### 3 1046, 31755, 73139, 28279 #### [facility] [address] PROTHROMBIN TIMEon 9 INR Coag (PPP) [Relative time] 1.23 {INR} High 0.91-1.16 [facility] Comment on above: Order Comment: No: D o not add to previous draw Result Comment: ACCC P RECOMMENDED INR FOR WARFARIN THERAPY ------- ------- CONDITION INR PROPHYLAXIS OF VENOUS THROMBOSIS 2-3 (HIGH-RISK SURGERY) TREATMENT OF VENOUS THROMBOSIS 2-3 TREATMENT OF PULMONARY EMBOLISM 2-3 PREVENTION OF SYSTEMIC EMBOLISM: 2-3 ACUTE MYOCARDIAL INFARCTION TISSUE HEART VALVES VALVULAR HEART DISEASE ATRIAL FIBRILLATION RECURRENT SYSTEMIC EMBOLISM MECHANICAL HEART VALVE 2.5-3.5 FROM: ORAL ANTICOAGULANTS. MECHANISM OF ACTION, CLINICAL EFFECTIVENESS, AND OPTIMAL THERAPEUTIC RANGE. CHEST 1995;108:231S-246S. Performed By: #### 5 3629, 29595, 22602, 25089 #### [facility] [address] PT Coag (PPP) [Time] 15.6 s High 12.3-14.8 [facility] Comment on above: Order Comment: No: D o not add to previous draw Result Comment: ALL RESULTS MUST BE INTERPRETED WITH RESPECT TO BLOOD DRAWING ARTIFACT OR DILUTION ERROR OF ANTICOAGULANT AT THE TIME OF SAMPLING. Performed By: #### 5 3629, 38418, 93272, 63114 #### [facility] [address] [place] [address], [facility] TROPONIN-Ion 05-31-2019 Troponin I.cardiac [Mass/Vol] 0.14 ng/mL Critically high 0.00-0.04 [facility] Comment on above: Result Comment: M-CR ITICAL RESULT(S) REVIEWED, CALLED TO AND READ BACK BY TAYE MEYERS RN @0000 ON 06-01-19 M-TROPONIN INITIAL CRITICAL HIGH; RESPUN AND RETESTED REFERENCE RANGES: 0.00 - 0.04 ng/ml NORMAL 0.05 - 0.50 ng/ml INDETERMINATE > 0.50 ng/ml CONSISTENT WITH AN M.I. Performed By: #### 3 1046, 14612, 18352, 59958 #### [facility] [address] [facility]. [address] UFH HEPARIN ASSAYon 05-31-20 19 UNFRACTIONATED HEPARIN 0.28 IU/mL Low 0.30-0.70 [facility] Comment on above: Result Comment: [place] roxaban and Apixaban will interfere with the anti Xa assay used to monitor UFH and LMWH. Performed By: #### 5 3629, 59756, 47501, 21709 #### [facility] [address] [facility] [address] Vital Signs Date Time Vital Sign Value Performing Clinician Facility 12-03-2023 09:08-0400 Body height 182.9 cm Pmh 1 [facility] 12-03-2023 09:08-0400 Body mass index (BMI) [Ratio] 31.06 kg/m2 P[facility] 1 [facility] 12-03-2023 09:08-0400 Body weight 103.87 kg Pmh 1 [facility] 10-21-2023 08:24-0500 Body height 182.9 cm Jr. Stepanic DO Work Phone: [facility] 10-21-2023 08:24-0500 Body mass index (BMI) [Ratio] 32.82 kg/m2 Jr. Stepanic DO Work Phone: [facility] 10-21-2023 08:24-0500 Body weight 109.77 kg Jr. Stepanic DO Work Phone: [facility] 10-16-2023 10:29-0500 Body height 182.9 cm Benedict Vallecillo MD Work Phone: [facility] 10-16-2023 10:29-0500 Body mass index (BMI) [Ratio] 33.36 kg/m2 Benedict Vallecillo MD Work Phone: [facility] 10-16-2023 10:29-0500 Body temperature 97.11 [degF] Benedict Vallecillo MD Work Phone: [facility] 10-16-2023 10:29-0500 Body weight 111.58 kg Benedict Vallecillo MD Work Phone: [facility] 10-16-2023 10:29-0500 Diastolic blood pressure 70 mm[Hg] Benedict Vallecillo MD Work Phone: [facility] 10-16-2023 10:29-0500 Heart rate 91 /min Benedict Vallecillo MD Work Phone: [facility] 10-16-2023 10:29-0500 SaO2% (BldA) [Mass fraction] 97 % Benedict Vallecillo MD Work Phone: [facility] 10-16-2023 10:29-0500 Systolic blood pressure 150 mm[Hg] Benedict Vallecillo MD Work Phone: [facility] Healthcare Encounters Encounter Date Encounter Type Care Provider Facility Start: 12-09-2023 End: 12-09-2023 ambulatory GAL BAUTISTA Not Available Start: 12-03-2023 End: 12-04-2023 ambulatory WILLIE WOODS [facility] Start: 12-03-2023 Encounter for other preprocedural examination WILLIE WOODS [facility] Start: 12-03-2023 End: 12-03-2023 Patient encounter procedure P[facility] Pre-Admission Testing 1 [facility] - Pre Admit Comment on above: Preop examination (P rimary Dx); Hypertension, unspecified type; Atrial fibrillation, unspecified type ([facility]); Type 2 diabetes mellitus without complication, 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 ([facility]); Former smoker; Osteoarthritis of left knee, unspecified osteoarthritis type; Urinary frequency Start: 12-03-2023 End: 12-03-2023 Preprocedural examination done Pmh 1 [facility] Start: 11-30-2023 End: 11-30-2023 ambulatory BERNICE AVILA Not Available Start: 10-21-2023 Chart abstracting Jr. Willie Woods DO Work Phone: [facility] Start: 10-21-2023 End: 10-22-2023 ambulatory , WILLIE WOODS Not Available Start: 10-21-2023 End: 10-21-2023 Office outpatient visit 25 minutes Jr. Willie Woods DO Work Phone: [facility] Comment on above: Acute pain of left k nee Start: 10-16-2023 Bamboo flowsheet Benedict Vallecillo MD Work Phone: [facility] Start: 10-16-2023 Bamboo flowsheet Benedict Vallecillo MD Work Phone: [facility] Start: 10-16-2023 Clinisync Result Encounter Benedict Vallecillo MD Work Phone: [facility] External Department Unsolicited Start: 10-16-2023 End: 10-16-2023 ambulatory BENEDICT VALLECILLO Not Available Start: 10-16-2023 End: 10-16-2023 Office outpatient visit 25 minutes Benedict Vallecillo MD Work Phone: [facility] Comment on above: Preop examination (P rimary Dx); Primary osteoarthritis of left knee; Type 2 diabetes mellitus with hyperglycemia, without long-term current use of insulin (CMS/HCC); Benign essential hypertension (CMS/HCC); Coronary artery disease involving [place] coronary artery of [place] heart without angina pectoris (CMS/HCC) Start: 10-16-2023 End: 10-16-2023 Preprocedural examination done Benedict Vallecillo MD Work Phone: [facility] Healthcare Work Phone: Start: 10-07-2023 End: 10-07-2023 ambulatory ANH POPE Not Available Start: 08-05-2023 End: 08-05-2023 ambulatory [facility] Start: 08-05-2023 End: 08-05-2023 Encounter for other preprocedural examination [facility] Start: 08-05-2023 End: 08-05-2023 Encounter for preprocedural cardiovascular examination [facility] Start: 02-04-2023 End: 02-04-2023 ambulatory KVNG JOHNSON [facility] Start: 11-13-2022 End: 11-14-[address] BENEDICT VALLECILLO Facility:[facility] Start: 05-15-2022 End: 05-16-[address] BENEDICT VALLECILLO Facility:[facility] Start: 05-31-2019 End: 06-06-2019 Evaluation and management of inpatient PROVIDER UNKNOWN Facility:[facility] Procedures Date Procedure Procedure Detail Performing Clinician Start: 10-21-2023 Radiologic examinati on knee 1/2 views Jr. Willie Woods DO Work Phone: Start: 10-16-2023 MLR HEMOGLOBIN A1C Benedict Vallecillo MD Work Phone: Start: 11-13-[address] BENEDICT PEÑA Comment on above: Performed By: #### P [facility] #### [facility] [address] [place] [address] Dr. Demetris Allred Start: 06-02-2019 DILATION OF 1 COR AR T WITH DRUG-ELUT INTRA, PERC APPROACH WILLIE TYLERRBANDREW Start: 06-02-2019 FLUOROSCOPY OF MULTI PLE CORONARY ARTERIES USING OTH CONTRAST WILLIE DEL CID Start: 06-01-2019 [object Object] PROVIDE R UNKNOWN Comment on above: Order Comment: No: D o not add to previous draw Performed By: #### 3 1046, 99145, 71690, 11941 #### [facility] [address] [place] [address], [facility] Start: 06-01-2019 INTRODUCE OTH THROMB OLYTIC IN CENTRAL ART, PERC WILLIE V MOUKARBEL Start: 06-01-2019 MEASURE OF CARDIAC S AMPL \T\ PRESSURE, R HEART, PERC APPROACH WILLIE V MOUKARBEL Start: 06-01-2019 Antibody screen PROVIDE R UNKNOWN Comment on above: Performed By: #### 3 1046, 20596, 39980, 81751 #### [facility] [address] [place] [address], [facility] Start: 06-01-2019 REMOVAL OF INFUSION DEVICE FROM UPPER VEIN, SLIDING JOINT MAKER APPROACH WILLIE DEL CID Plan of Treatment Date Care Activity Detail Author Start: 12-02-2024 Adult BMI Screening Adult BMI Screen ing [facility] Start: 12-02-2024 Tobacco Screening Tobacco Screening [facility] Start: 07-14-2024 Medicare Annual Well ness (AWV) Medicare Annual Wellness (AWV) [facility] Start: 01-13-2024 End: 01-13-2024 Patient encounter procedure 01/13/2024 9:00 AM EDT Office Visit [facility] [address] [place] [address] Benedict Vallecillo MD [address] [place] [address] [facility] Start: 12-29-2023 End: 12-29-2023 Admission to same day surgery center 12/29/2023 7:45 AM EDT - 12/29/2023 11:[address] [facility] [address] [place] [id number] Willie Woods Jr., DO [address] [facility] [address] [place] [address] REPLACEMENT TOTAL JOINT KNEE [89983 (CPT )] [facility] Comment on above: REPLACEMENT TOTAL KAREY INT KNEE [47107 (CPT )] Start: 12-29-2023 End: 12-29-2023 Arthrp kne condyle&platu medial&lat compartments REPLACEMENT TOTAL JOINT KNEE left knee degenerative joint disease 12/29/2023 7:45 AM EDT [facility] Start: 12-29-2023 Subsequent hospital visit by physician 12/29/2023 7:45 AM EDT Hospital Encounter [facility] [address] [place] [phone] Willie Woods Jr., DO [address] [place] [address] [facility] Start: 12-21-2023 End: 11-26-2024 Crossmatch RBC Crossmatch RBC Blood Bank Routine Preop examination Hypertension, unspecified type Atrial fibrillation, unspecified type ([facility]) Type 2 diabetes mellitus without complication, 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 ([facility]) Former smoker Osteoarthritis of left knee, unspecified osteoarthritis type Urinary frequency Expected: 12/21/2023, Expires: 11/26/2024 [facility] Comment on above: Expected: 12/21/2023 , Expires: 11/26/2024 Start: 12-21-2023 End: 11-26-2024 Type and screen(includes indirect olivia) Type and screen(includes indirect olivia) Blood Bank Routine Preop examination Hypertension, unspecified type Atrial fibrillation, unspecified type ([facility]) Type 2 diabetes mellitus without complication, 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 ([facility]) Former smoker Osteoarthritis of left knee, unspecified osteoarthritis type Urinary frequency Expected: 12/21/2023, Expires: 11/26/2024 [facility] Comment on above: Expected: 12/21/2023 , Expires: 11/26/2024 Start: 12-03-2023 End: 11-26-2024 ECG 12 lead ECG 12 lead ECG Routine Preop examination Hypertension, unspecified type Atrial fibrillation, unspecified type ([facility]) Type 2 diabetes mellitus without complication, 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 ([facility]) Former smoker Osteoarthritis of left knee, unspecified osteoarthritis type Urinary frequency Expected: 12/03/2023, Expires: 11/26/2024 [facility] Comment on above: Expected: 12/03/2023 , Expires: 11/26/2024 Start: 12-03-2023 End: 11-26-2024 XR Femur and Tibia Views for leg length [employer] Work Phone: Comment on above: Expected: 12/03/2023 , Expires: 11/26/2024 Start: 11-14-2023 Urine screening for protein Diabetes: Urine Protein Screening [facility] Start: 10-21-2023 End: 10-21-2023 Patient encounter procedure 10/21/2023 8:30 AM EST Office Visit [facility] [address] [place] [address] Jr. Willie Woods, [address] [address] [facility] Start: 10-16-2023 End: 10-16-2024 Hemoglobin A1c measurement Hemoglobin A1c Lab Routine Type 2 diabetes mellitus with hyperglycemia, without long-term current use of insulin ([facility]) Expected: 10/16/2023 (Approximate), Expires: 10/16/2024 [facility] Work Phone: Comment on above: Expected: 10/16/2023 (Approximate), Expires: 10/16/2024 Start: 10-16-2023 End: 10-16-2023 Patient encounter procedure 10/16/2023 10:30 AM EST Consult [facility] [address] [place] [phone] Benedict Vallecillo MD [address] [place] [id number] Arrived [facility] Comment on above: Arrived Start: 02-03-2020 Pneumococcal Vaccine : 65+ Years (2 - PCV) Pneumococcal Vaccine: 65+ Years (2 - PCV) [facility] Start: 2011 Fall Risk Screening Fall Risk Screen ing [facility] Start: 1996 Administration of varicella zoster vaccine Zoster (Shingles) Vaccine (1 of 2) [facility] Start: 1965 DTaP,Tdap and Td Vaccines (1 - Tdap) DTaP,Tdap and Td Vaccines (1 - Tdap) [facility] Start: 1965 Urine screening for protein Diabetes: Urine Protein Screening [facility] Start: 1964 Adult BMI Follow Up Plan Adult BMI Follow Up Plan [facility] Start: 1958 Depression Screening Depression Scre ening [facility] Start: 1956 Glaucoma screening Diabetes: R etinopathy Screening [facility] Start: 1946 Hemoglobin A1c measurement Diabetes: Hemoglobin A1C [facility] Start: 1946 Medicare Annual Well ness Visit Medicare Annual Wellness Visit [facility] Immunizations Immunization Date Immunization Notes Care Provider Fa cility 07-22-2022 Influenza, High-dose Seasonal, Quadrivalent, Preservative Free Benedict Vallecillo MD Work Phone: [facility] 07-22-2022 Moderna Bivalent [place] Vaccination Benedict Vallecillo MD Work Phone: [facility] 11-24-2020 COVID-19, mRNA, LNP- S, PF, 30mcg/0.3mL Dose Pmh 1 [facility] 11-03-2020 COVID-19, mRNA, LNP- S, PF, 30mcg/0.3mL Dose Pmh 1 [facility] 02-02-2019 pneumococcal polysaccharide vaccine, 23 valent Benedict Vallecillo MD Work Phone: [facility] Payers Date Payer Category Payer Unknown [id number] 2018 Private Health Insurance [facility] AARP SUPPLEMENT [id number] 2018-Present [phone] [address] [place] [address] [id number] 2013 Unknown [id number] 2011 Medicare [id number] 1959 Medicare [id number] 1959 Unknown [id number] 1959 Unknown [id number] 1946 Unknown [id number] [id number] .647 1946 Unknown [id number] 2.16.840.1.737949.3.579.2 .593 1946 Unknown [id number] 2.16.840.1.479790.3.579.2 .593 1946 Unknown [id number] 2.16.840.1.376587.3.579.2 .1286 1946 Unknown [id number] 2.16.840.1.901708.3.579.2 .1286 1946 Unknown [id number] 2.16.840.1.218866.3.579.2 .1286 1946 Unknown [id number] 2.16.840.1.034820.3.579.2 .1286 1946 Unknown [id number] 2.16.840.1.961420.3.579.2 .1286 1946 Unknown [id number] 2.16.840.1.142166.3.579.2 .1259 1946 Unknown [id number] 2.16.840.1.930237.3.579.2 .125 1946 Unknown [id number] 2.16.840.1.181247.3.579.2 .1259 1946 Unknown [id number] 2.16.840.1.142473.3.579.2 .1259 1946 Unknown [id number] 2.16.840.1.934880.3.579.2 .1259 1946 Unknown [id number] 2.16.840.1.158644.3.579.2 .1259 Social History Date Type Detail Facility Start: 04-22-2023 End: 12-03-2023 Tobacco smoking status WAIS Ex-smoker [facility] End: 09-14-1994 History of tobacco use Current smoker [facility] End: 09-14-1994 History of tobacco use Cigarette Smoker [facility] Start: 10-10-2023 End: 12-03-2023 Alcohol intake Current drinker of alcohol (finding) [facility] Start: 10-25-2020 End: 10-09-2023 History of Social function [facility] Start: 10-25-2020 End: 10-09-2023 Humiliation, Afraid, Rape, and Kick questionnaire [HARK] [facility] Within the last year , have you been afraid of your partner or ex-partner? No [facility] Do you belong to any clubs or organizations such as shinto groups, unions, fraternal or athletic groups, or school groups? Yes [facility] Are you now , , , , never or living with a partner? [facility] How often to you hav e a drink containing alcohol? 2-3 time sa week [facility] How many standard dr inks containing alcohol do you have on a typical day? 1 or 2 [facility] How often do you hav e 6 or more drinks on 1 occasion? Never [facility] How hard is it for y ou to pay for the very basics like food, housing, medical care, and heating Not hard at all [facility] Do you feel stress - tense, restless, nervous, or anxious, or unable to sleep at night because your mind is troubled all the time - these days [OSQ] Not at all [facility] (I/We) worried wheth er (my/our) food would run out before (I/we) got money to buy more. Never true [facility] Start: 1945 Sex Assigned At Male [facility] Start: 03-02-2023 Gender identity Identifies as male gender (finding) [facility] Start: 03-02-2023 Sexual orientation Heterosexual (fin ding) [facility] Start: 10-16-2023 End: 12-03-2023 Tobacco use and exposure Smokeless tobacco non-user [facility] Clinical Notes 11-06-2020 to 12-07-2023 Patient InstructionsJr. Willie Woods DO - 10/21/2023 8:30 AM Queenie Vallecillo MD - 10/16/2023 12:23 PM Queenie Vallecillo MD - 10/16/2023 12:23 PM Queenie Vallecillo MD - 10/16/2023 12:23 PM EST Note Date & Type Note Facility 12-07-2023 Note XR BONE LENGTH STUDY Bone length evaluation History: Osteoarthritis, limb length and alignment, knee pain Comparison: None Findings: Standing frontal view of the bilateral lower extremities obtained from the iliac crest through the feet for limb length and alignment without marker device. Degenerative changes of the bilateral hips and bilateral knees. There is symmetric alignment. The right lower extremity measures 93.4 cm. The left lower extremity measures 93.3 cm. Degenerative changes of the lumbar spine. Vascular calcifications. Impression: Degenerative changes with symmetric lung length and alignment. Finalized by Bud Alvarez MD on 12/07/2023 8:33 AM [facility] 12-03-2023 Instructions Monae Cartwright RN - 12/03/2023 9:00 AM EDT Preoperative Education Checklist- General Surgery date: 12/29/23 Surgery time: 745a Arrival time: 610a Please come back to the hospital between 12/21/23-12/28/23Thursday-Thursday 630a-430p. Stop at the registration desk upon arrival. The lab will give you a green blood band, bring that back with you day of surgery. 1. Bring a photo ID and your insurance card with you the day of surgery. You will check in at the main lobby of the [facility]- registration desk is straight ahead as soon as you walk in. Tell them you are here for surgery. 2. If you have a Living Will/Durable Power of Material Handling Technician for Health Care that is not on file here, please bring a copy the day of surgery. 3. Please shower/bathe the night before surgery with the provided soap or wipes. Do not shower the morning of surgery- you will do use wipes when you arrive here at the hospital before getting into your surgical gown. Do not shave the area of your procedure for 2 days prior to your surgery. 4. NO powder, lotion, perfume/cologne, aftershave, make-up, deodorant, or hair products after you have bathed. 5. NO nail [place]/acrylic on at least one finger. If you are having a hand, wrist or foot surgery then all nail [place] and artificial/acrylic nails must be removed from that hand or foot. 6. Avoid ALL Aspirin and non-steroidal anti-inflammatory drugs and certain vitamins (Ibuprofen, Advil, Aleve, Excedrin, Meloxicam, Celebrex, fish/krill oil, etc.) for 7 days prior to surgery as instructed by your surgeon and/or your prescribing doctor. Tylenol IS ALLOWED. If you are on Ticlid, Xarelto, Eliquis, Pradaxa, Plavix or Coumadin, please check with your prescribing doctor for instructions for when to stop them. 7. If you use an inhaler, continue to use it routinely. 8. Nothing to eat or drink (not even water, gum, mints, or hard candy!) AFTER midnight prior to your surgery. 9. Take only medications that you are instructed to on the morning of surgery with a TINY SIP OF WATER. 10. Choose a responsible adult that will be able to drive you home when you are discharged from your hospital stay for your surgery and can stay with you in your home for 24 hours after your procedure. You must NOT drive any vehicle or operate any machinery for 24 hours after surgery. 11. When you dress for your appointment, please wear loose fitting clothing that is appropriate to accommodate your surgical area procedure. BRING WITH YOU ANY DEVICES YOU MAY NEED: OTILIA hose, ice machine, sling/swath, brace or special shoe, oversized zip-up or button up shirt, CPAP machine if staying overnight. 12. Do NOT wear jewelry, watches, or any piercings or metal for surgery- leave these valuables and money at home. 13. Do NOT wear contact lenses for surgery- glasses are okay if needed. 14. The anesthesiologist will talk with you the day of surgery and will ask you to sign a Consent Form. 15. Refrain from smoking or any type of tobacco use for at least 8 hours and marijuana for 24 hours prior to arrival for your surgery. 16. If a GREEN BLOOD band is given to you, please bring it with you for the day of surgery. 17. Notify your surgeon if you develop any illness before your surgery. 18. If you are staying overnight, please DO NOT BRING your home medications with you. 19. If you have any questions prior to surgery, please call the Preadmission Testing office at [phone], Mon.-Fri. 7 a.m.-3 p.m. Leave a voicemail if needed. Pre-Surgery Instructions: Medication Instructions atorvastatin (LIPITOR) 40 mg tablet Stop taking 0 days prior to procedure ELIQUIS 5 mg tablet Check with prescribing doctor for instructions JARDIANCE 25 mg tablet tablet Stop taking 0 days prior to procedure lisinopriL (PRINIVIL,ZESTRIL) 20 mg tablet Take morning of procedure POLY-IRON 150 FORTE 150-25-1 mg-mcg-mg capsule Stop taking 0 days prior to procedure aspirin 81 mg Check with prescribing doctor for instructions glipiZIDE (GLUCOTROL) 10 mg tablet Stop taking 0 days prior to procedure abposvpf-kxwl-MC-calcium &mins (THERAGRAN-M) 9 mg iron-400 mcg tablet Stop taking 0 days prior to procedure vit C/E/zinc ox/ginny/lut/zeax (ICAPS AREDS2 ORAL) Stop taking 0 days prior to procedure How to Avoid an Infection after Your Surgery Your doctor will give you specific instructions, but remember: -ALWAYS wash hands before caring for your incision. -No picking, scratching, or rubbing your incision. -No creams, lotion, powder, rubbing alcohol or hydrogen peroxide on the incision (can harm the tissue and slow healing). -Your doctor will give you specific instructions for what type of dressing you will need and how often it will need changed for infection purposes. -No tight clothing on incision. -Do not allow anyone to touch your incision unless they are cleaning, checking, or redressing it (be sure they wash their hands first). -No contact of your incision with pets; avoid sleeping with pets. -Take full course of antibiotic if prescribed for you after surgery- do not stop unless directed to by your physician. You may also be given an antibiotic prior to your surgery to help prevent surgical site infections. -Eat a healthy and varied diet including proteins, fruits, and vegetables to help promote wound healing and keep blood sugars under control if you are diabetic. -Smoking slows the healing process by decreasing the amount of oxygen in your blood that is needed for tissue healing. Try to avoid or stop smoking if possible. LOOK at your incision each morning and each night to check the progress of healing. Some soreness, numbness, itching and/or mild bruising around the incision is normal. Call your doctor if you notice any of the following: -Increased redness or hardening around the incision area. -Increased pain at the incision site. -Incision feels hot to the touch. -Swelling or pulling apart of the incision edges. -Yellow or green drainage or foul odor coming from the incision. -Bleeding from the incision (apply pressure as needed). -Fever higher than 101 degrees Fahrenheit for more than 4 hours. SHOWERING: Your doctor will give you specific instructions, but remember: -Be careful getting into and out of the shower. -Showers should be quick (5 minutes or less). -Use a clean washcloth to gently wash your incision with soap and water and pat the area dry with a clean towel. -No re-using wash cloths or towels; get a fresh one to clean your incision. -Do not soak in the bathtub, go swimming or use a hot tub (Jacuzzi), or perform activities where your incision is submerged in water or exposed to any fluids or substances until instructed by your doctor. -If your have the sticky strips (steri-strips) over the incision, it is OK to shower with them. Do not remove them. Let them fall off on their own. If you have a question, call your doctor s office. Go to the follow-up appointment with your doctor. documented in this encounter [facility] 10-21-2023 History of Present illness Narrative Images from the original note were not included. HISTORY OF PRESENT ILLNESS: EST PT Serge Shine is an 78 y.o. @ male. (EST PT; MOST RECENT VISIT WITH ANH) RECHECK LT KNEE PAIN-HERE TO DISCUSS POSSIBLE SURGERY- REPEAT XRAY TODAY LAST TX BY DR WOODS 07/22/23, LT TKA WAS DISCUSSED PT WAS CLEARED BY KVNG JOHNSON NP (JAMMER OPERATOR) 07/2023 PER PT CLEARED BY ALISE DENTIST (WILL CALL FOR CLEARANCE) XRAY LT KNEE TODAY CHANGE 10/21/23 XRAY EXA 12/18/22 (PULL UP ON BACK COMPUTER) MRI EXA 11/19/22 DEPO INJECTION 12/18/22, 04/22/23 NO MDP/PREDNISONE NO PAIN MANAGEMENT CONTINUES TO BE PAINFUL-PAIN ANTERIOR/MEDIAL KNEE- +STIFFNESS WITH PROLONG SITTING- +SNAPPING/CLICKING- +SWELLING- +WAKES HS- +TYLENOL - CONTINUES TO WEAR A SLEEVE; HELPS WITH STABILITY- WEARS COMPRESSION STOCKINGS PT IS ON ELIQUIS; A-FIB HX PE ~2018 ALLERGIES: No Known Allergies HOME MEDICATIONS: Current Outpatient Medications Medication Instructions aspirin 81 MG EC tablet 1 tablet, Oral, Daily atorvastatin (LIPITOR) 40 mg, Oral, Nightly Eliquis 5 mg, Oral, 2 times daily glipiZIDE (Glucotrol) 10 MG tablet 1 tablet, Oral, Daily Jardiance 25 mg, Oral, Daily lisinopril 20 mg, Oral, Daily Multiple Vitamins-Minerals (Centrum Silver 50+Men) tablet as directed Orally Multiple Vitamins-Minerals (PreserVision AREDS 2) capsule 1 tablet Orally two times daily PHYSICAL EXAM: Knee Musculoskeletal Exam Gait Antalgic: left Inspection Leg length disparity: no discrepancy Left Erythema: none Effusion: mild Edema: none Ecchymosis: none Deformity: none Alignment: varus Palpation Left Left knee palpation is unremarkable. Increased warmth: none Masses: none Crepitus: patellofemoral and medial Tenderness: present Medial joint line: moderate Patella: mild Range of Motion Left Left knee range of motion is normal and full. Strength Left Left knee strength is normal. Extension: 5/5. Extension is affected by pain. Flexion: 5/5. Flexion is affected by pain. Instability Left Instability signs: none - stable Anterior drawer: normal Neurovascular Left Left knee neurovascular exam is normal. Pulses - PT: normal Posterior tibial: 2+ Capillary refill: warm and well-perfused Special Signs Left Left knee special signs are normal. General Constitutional: appears stated age Labored breathing: no Psychiatric: normal mood and affect Neurological: alert Skin: intact Lymphadenopathy: none Vitals: There is no height or weight on file to calculate BMI. Tobacco Use: Medium Risk (10/16/2023) Patient History Smoking Tobacco Use: Former Smokeless Tobacco Use: Never Passive Exposure: Not on file Alcohol Use: Not At Risk (10/09/2023) AUDIT-C Frequency of Alcohol Consumption: 2-3 times a week Average Number of Drinks: 1 or 2 Frequency of Binge Drinking: Never IMAGING: Procedures No orders of the defined types were placed in this encounter. ASSESSMENT: No diagnosis found. PLAN: We have discussed both surgical and nonsurgical treatment options with the patient at length and the risks and benefits associated with both. The patient is requesting surgical intervention because they have not responded to outpatient treatment options including but not limited to rest ice, and home exercise program. Pain and decreased range of motion are affecting the patient's ability to sleep and activities of daily living and we have recommended surgical intervention. We have discussed both surgical and nonsurgical treatment options with the patient at length and the risks and benefits associated with both. The patient is requesting surgical intervention because they have not responded to outpatient treatment options including but not limited to rest ice, and home exercise program. Pain and decreased range of motion are affecting the patient's ability to sleep and activities of daily living and we have recommended surgical intervention. We have discussed both surgical and nonsurgical treatment options with the patient at length and the risks and benefits associated with both. The patient is requesting surgical intervention because they have not responded to outpatient treatment options including but not limited to rest ice, and home exercise program. Pain and decreased range of motion are affecting the patient's ability to sleep and activities of daily living and we have recommended surgical intervention. We will schedule for surgery pending cardiac clearance and dental clearance from [facility]. Patient requests outpatient surgery at [facility] Questions answered in laymen terms at the bedside. The diagnosis, home exercise plan and any ongoing restrictions/ recommendations reviewed. If unable to be reached in office, I recommend evaluation at nearest Emergency Room if any symptoms worsened or new symptoms develop for requiring urgent evaluation. BIJU Pugh documented in this encounter [facility] 10-16-2023 History of Present illness Narrative Associated Problem(s): Benign essential hypertension (CMS/HCC) BP typically controlled and monitor PRN. Associated Problem(s): Coronary artery disease involving [place] coronary artery of [place] heart without angina pectoris (CMS/HCC) No pain and follow up with cardiology. Associated Problem(s): Type 2 diabetes mellitus with hyperglycemia, without long-term current use of insulin (CMS/HCC) Not checking BS and due for A1C. Stick to ADA diet and limit carbs. Associated Problem(s): Primary osteoarthritis of left knee Increased pain and unsteadiness. Follow up with ortho for surgery. Associated Problem(s): Preop examination Able to proceed with upcoming surgery at low to intermediate risk for complications. History of CAD and cleared by cardiology. History of DM and HTN that are typically controlled with medication. Not having chest pain or palpitations. Recommend routine PAT. Subjective Patient ID: Serge Shine is a 78 y.o. male who presents for Follow-up (Surgical clearance). Presents for preoperative evaluation. Severe OA in left knee and getting worse. Increased pain with walking and standing. Knee starting to give out and concerned about falls. Seen by ortho and no change with injection. Plan on partial left knee replacement. Overall feels well. Not checking BS away from office and due for A1C. Denies signs of elevated BS such as polyuria, polyphagia or polydipsia. Checking BP PRN and typically controlled. BP elevated today but states normal at specialists. Taking medication daily and tolerating without side effects. History of CAD and follows with cardiology who already gave cardiac clearance for surgery. Review of Systems Constitutional: Negative for fatigue. Respiratory: Negative for cough, shortness of breath and wheezing. Cardiovascular: Negative for chest pain and palpitations. Gastrointestinal: Negative for abdominal pain, diarrhea, nausea and vomiting. Genitourinary: Negative for dysuria. Objective Physical Exam Constitutional: General: He is not in acute distress. Appearance: Normal appearance. HENT: Head: Normocephalic. Right Ear: Tympanic membrane and ear canal normal. Left Ear: Tympanic membrane and ear canal normal. Eyes: Extraocular Movements: Extraocular movements intact. Pupils: Pupils are equal, round, and reactive to light. Cardiovascular: Rate and Rhythm: Normal rate and regular rhythm. Heart sounds: No murmur heard. No friction rub. No gallop. Pulmonary: Breath sounds: Normal breath sounds. No wheezing, rhonchi or rales. Abdominal: General: Bowel sounds are normal. There is no distension. Palpations: Abdomen is soft. Tenderness: There is no abdominal tenderness. There is no guarding or rebound. Musculoskeletal: Left lower leg: No edema. Neurological: Mental Status: He is alert. Assessment/Plan Problem List Items Addressed This Visit Coronary artery disease involving [place] coronary artery of [place] heart without angina pectoris (CMS/HCC) No pain and follow up with cardiology. Primary osteoarthritis of left knee Increased pain and unsteadiness. Follow up with ortho for surgery. Benign essential hypertension (CMS/HCC) BP typically controlled and monitor PRN. Type 2 diabetes mellitus with hyperglycemia, without long-term current use of insulin (CMS/HCC) Not checking BS and due for A1C. Stick to ADA diet and limit carbs. Relevant Orders Hemoglobin A1c Preop examination - Primary Able to proceed with upcoming surgery at low to intermediate risk for complications. History of CAD and cleared by cardiology. History of DM and HTN that are typically controlled with medication. Not having chest pain or palpitations. Recommend routine PAT. documented in this encounter [facility] 08-05-2023 Note Planning for Lt TKA [place] [facility] 08-05-2023 Note RCRI= 1???points Cla ss II Risk 6.0???% 30-day risk of , [place], or cardiac arrest From a cardiology perspective pt may proceed with planned Lt TKA, he is a low to moderate risk for moderate risk surgery, he may hold eliquis 2-3 days prior to surgery. Please resume all meds post op and monitor hemodynamics carefully and prevent any major fluid shifts. [facility] 08-05-2023 Note Patient here for 6 m o follow up CAD and hx of PE. Also needs cleared for knee replacement. Denies chest pain, SOB, palpitations, and lightheadedness. Doing very well. Review of Systems Cardiovascular: Positive for dyspnea on exertion and leg swelling. Musculoskeletal: Positive for arthritis and joint pain. All other systems reviewed and are negative. [facility] 08-05-2023 Note [facility] CARDIOLOGY PROGR ESS NOTE HPI: Serge Shine is a 78 y.o. male here for routine F/U for CAD s/p NELIA, HPL, H/O PE, cardiac arrest 2019, Patient here for 6 mo follow up CAD and hx of PE. Also needs cleared for knee replacement. Denies chest pain, SOB, palpitations, and lightheadedness. Doing very well, planning to have Lt knee (TKA) with Dr Mar. Denied chest pain, reports typical SOB with exertion and wearing BLE compression socks manage his edema well. Continues to ride E bike daily and has ridden > 300 miles this month and > 1100 miles this year. Review of Systems Cardiovascular: Positive for dyspnea on exertion and leg swelling. Musculoskeletal: Positive for arthritis and joint pain. All other systems reviewed and are negative. 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 Only activity limiting symptom is Lt knee pain from arthritis Visit Vitals BP 132/68 (BP Location: Left arm, Patient Position: Sitting) Pulse 92 Ht 1.829 m (6') Wt 108 kg (239 lb) SpO2 96% BMI 32.41 kg/m??? Smoking Status Former BSA 2.34 m??? No Known Allergies Medications: Current Outpatient Medications on File Prior to Visit Medication Sig Dispense Refill apixaban (Eliquis) 5 mg tablet Take 5 mg by mouth twice a day. aspirin 81 mg EC tablet in the morning. atorvastatin (Lipitor) 40 mg tablet Take 40 mg by mouth in the morning. empagliflozin (Jardiance) 25 mg 1 (one) time each day at the same time. lisinopril 20 mg tablet lisinopril 20 mg tablet No current facility-administered medications on file prior to visit. Physical Exam: Constitutional: Appearance: Normal appearance. Without apparent distress, obese HENT: Head: Normocephalic and atraumatic. Nose: Nose normal. Mouth/Throat: Mouth: Mucous membranes are moist. Eyes: Extraocular Movements: Extraocular movements intact. Conjunctiva/sclera: Conjunctivae normal. Neck: Vascular: No JVD. Cardiovascular: Rate and Rhythm: Normal rate and regular rhythm. Pulses: Dorsalis pedis pulses are 3 on the right side and 3on the left side. Posterior tibial pulses are 3 on the right side and 3 on the left side. Heart sounds: Normal heart sounds, S1 normal and S2 normal. Pulmonary: Effort: Pulmonary effort is normal. Breath sounds: Normal breath sounds. Abdominal: General: Bowel sounds are normal. Palpations: Abdomen is soft. Musculoskeletal: General: Normal range of motion. Cervical back: Normal range of motion. Right lower leg: No edema. Left lower leg: No edema. Skin: General: Skin is warm and dry. Capillary Refill: Capillary refill takes less than 2 seconds. Neurological: General: No focal deficit present. Mental Status: he is alert and oriented to person, place, and time. Psychiatric: Mood and Affect: Mood normal. Behavior: Behavior normal. Thought Content: Thought content normal. Judgment: Judgment normal. Labs: 11/13/22 CBC normal Renal function normal Liver function stable- ALP 133- elevated; AST and ALT normal Chol 131, LDL 24.2- well controlled- HDL 35, Trig 389- elevated Last lab values have been reviewed CV Testing: EKG today- Sinus rhythm with 1st degree AV block- otherwise normal 06/02/2019 Cardiac cath 06/01/2019 Echo Last lab values have been reviewed Assessment/Plan: Mixed hyperlipidemia Continue lipitor Routine annual labs due around next November Coronary artery disease involving [place] coronary artery of [place] heart without angina pectoris Coronary artery disease is stable Continue GDMT- ASA, lipitor, lisinopril continue risk factor modifications- heart healthy diet, regular exercise as tolerated and continue all medications. He remains very active without any limiting symptoms Chronic pulmonary embolism without acute cor pulmonale (CMS/HCC) H/O PE s/p thrombectomy/thrombolisis Cardiac arrest x2 in 2018 Lifelong anticoagulation- remains on eliquis Presence of drug coated stent in right coronary artery Continue GDMT Pre-operative cardiovascular examination RCRI= 1 points Class II Risk 6.0 % 30-day risk of , [place], or cardiac arrest From a cardiology perspective pt may proceed with planned Lt TKA, he is a low to moderate risk for moderate risk surgery, he may hold eliquis 2-3 days prior to surgery. Please resume all meds post op and monitor hemodynamics carefully and prevent any major fluid shifts. Osteoarthritis of knee Planning for Lt TKA RTC 6 months [facility] 08-05-2023 Note Continue GDMT [facility] 08-05-2023 Note H/O PE s/p thrombectomy/thrombolisis Cardiac arrest x2 in 2019 Lifelong anticoagulation- remains on eliquis [facility] 08-05-2023 Note Coronary artery dise ase is stable Continue GDMT- ASA, lipitor, lisinopril continue risk factor modifications- heart healthy diet, regular exercise as tolerated and continue all medications. He remains very active without any limiting symptoms [facility] 08-05-2023 Note Continue lipitor Routine annual labs due around next November [facility] 02-04-2023 Note Remains on [place] eliquis anticoagulation No bleeding tendencies [facility] 02-04-2023 Note [facility] CARDIOLOGY PROGR ESS NOTE HPI: Serge Shine is a 77 y.o. male here for CAD- single vessel disease, PE, cardiac arrest 2019, States he rides E bike daily and has ridden 1100 miles so far this year. Denied chest pain, shortness of breath, orthopnea or bleeding tendencies. 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 Only activity limiting symptom is Lt knee pain from arthritis Review of Systems Visit Vitals BP 127/67 Pulse 92 Wt 110 kg (242 lb) SpO2 94% BMI 32.82 kg/m??? Smoking Status Former BSA 2.36 m??? Not on File Medications: Current Outpatient Medications on File Prior to Visit Medication Sig Dispense Refill apixaban (Eliquis) 5 mg tablet Take 5 mg by mouth twice a day. aspirin 81 mg EC tablet in the morning. atorvastatin (Lipitor) 40 mg tablet Take 40 mg by mouth in the morning. empagliflozin (Jardiance) 25 mg 1 (one) time each day at the same time. lisinopril 20 mg tablet lisinopril 20 mg tablet No current facility-administered medications on file prior to visit. Physical Exam: Constitutional: Appearance: Normal appearance. Without apparent distress HENT: Head: Normocephalic and atraumatic. Nose: Nose normal. Mouth/Throat: Mouth: Mucous membranes are moist. Eyes: Extraocular Movements: Extraocular movements intact. Conjunctiva/sclera: Conjunctivae normal. Neck: Vascular: No JVD. Cardiovascular: Rate and Rhythm: Normal rate and regular rhythm. Pulses: Dorsalis pedis pulses are 3 on the right side and 3on the left side. Posterior tibial pulses are 3 on the right side and 3 on the left side. Heart sounds: Normal heart sounds, S1 normal and S2 normal. Pulmonary: Effort: Pulmonary effort is normal. Breath sounds: Normal breath sounds. Abdominal: General: Bowel sounds are normal. Palpations: Abdomen is soft. Musculoskeletal: General: limited ROM Lt knee and swelling noted Right lower leg: No edema. Left lower leg: No edema. Skin: General: Skin is warm and dry. Capillary Refill: Capillary refill takes less than 2 seconds. Neurological: General: No focal deficit present. Mental Status: alert and oriented to person, place, and time. Psychiatric: Mood and Affect: Mood normal. Behavior: Behavior normal. Thought Content: Thought content normal. Judgment: Judgment normal. Labs:11/13/22 CBC normal Renal function normal Liver function stable- ALP 133- elevated; AST and ALT normal Chol 131, LDL 24.2- well controlled- HDL 35, Trig 389- elevated Last lab values have been reviewed CV Testin06/02/2019 Cardiac cath 06/01/2019 Echo No echocardiogram results found for the past 12 months Assessment/Plan: Coronary artery disease involving [place] coronary artery of [place] heart without angina pectoris Coronary artery disease is stable without any concerning symptoms Continue GDMT- ASA, lipitor and lisinopril continue risk factor modifications- heart healthy diet, regular exercise as tolerated and continue all medications. Continue GDMT- Mixed hyperlipidemia Chol and LDL well controlled for CAD Continue statin Presence of drug coated stent in right coronary artery Stable Chronic pulmonary embolism without acute cor pulmonale (CMS/HCC) Remains on [place] eliquis anticoagulation No bleeding tendencies RTC 1 year [facility] 02-04-2023 Note Stable [facility] 02-04-2023 Note Chol and LDL well co ntrolled for CAD Continue statin [facility] 02-04-2023 Note Coronary artery dise ase is stable without any concerning symptoms Continue GDMT- ASA, lipitor and lisinopril continue risk factor modifications- heart healthy diet, regular exercise as tolerated and continue all medications. Continue GDMT- [facility] 11-06-2020 Note Patient Outreach ([place] [facility]) SERGE SHINE ([id number]) 1945 M Date Time Provider Department 11/06/20 GE GARCIA During your visit today, we recorded the following information about you: Allergies As of Date: 11/06/2020 (No Known Allergies) Date Reviewed: 06/16/2019 Reviewed by: Sudha Cartagena - Fully Assessed Order(s):SARS-COVID VACCINE 1ST DOSE APPT [[id number]] Order #: [id number] FUTURE Prescriptions as of 11/06/2020 Sig: ASPIRIN 81 MG TABLET,DELAYED * Take 81 mg by mouth once marisol* APIXABAN 5 MG TABLET Take 5 mg by mouth twice marisol* CLOPIDOGREL 75 MG TABLET Take 75 mg by mouth once marisol* ATORVASTATIN 40 MG TABLET Take 40 mg by mouth once marisol* CANAGLIFLOZIN 100 MG TABLET Take 100 mg by mouth daily wi* Problem List As Of Date: 11/06/2020 (None) Letter Text Encounter Status:Closed by JOSE, PRODUSER on 11/09/20 [facility] Evaluation note Diagnosis Preop examination- Primary Unspecified pre-operative examination Primary osteoarthritis of left knee Type 2 diabetes mellitus with hyperglycemia, without long-term current use of insulin (CMS/HCC) Benign essential hypertension (CMS/HCC) Essential hypertension, benign Coronary artery disease involving [place] coronary artery of [place] heart without angina pectoris (CMS/HCC) documented in this encounter [facility] HealthcareEvaluation note* Diagnosis Acute pain of left knee documented in this encounter [facility] HealthcareEvaluation note* Diagnosis Preop examination- Primary Unspecified pre-operative examination Hypertension, unspecified type Atrial fibrillation, unspecified type (CMS-HCC) Type 2 diabetes mellitus without complication, 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 (CMS-HCC) Former smoker Personal history of tobacco use, presenting hazards to health Osteoarthritis of left knee, unspecified osteoarthritis type Urinary frequency Preop examination Unspecified pre-operative examination Hypertension, unspecified type Atrial fibrillation, unspecified type (CMS-HCC) Type 2 diabetes mellitus without complication, 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 (CMS-HCC) Former smoker Personal history of tobacco use, presenting hazards to health Osteoarthritis of left knee, unspecified osteoarthritis type Urinary frequency documented in this encounter [facility] Summary Purpose Family History No Family History Records FoundNo Family History Records FoundNo Family History Records FoundNo Family History Records FoundNo Family History Records FoundNo Family History Records Found Advance Directives No Advanced Directives Records FoundNo Advanced Directives Records FoundNo Advanced Directives Records FoundNo Advanced Directives Records FoundNo Advanced Directives Records FoundNo Advanced Directives Records Found Hospital Course Note MR#: [id number] I [facility] Pt. Name: Serge Shine Admitted: 05/31/2019 Discharged: 06/06/2019 Date of : 1945 Physician: Jacquelyn Stein M.D. DISCHARGE SUMMARY PRIMARY DIAGNOSES: 1. Acute hypoxic respiratory failure secondary to massive pulmonary embolism. 2. Massive pulmonary embolism. 3. Acute coronary syndrome, status post stent placement in the RCA. 4. Complete heart block. SECONDARY DIAGNOSES: 1. Hypertension. 2. Diabetes mellitus. 3. Abdominal aortic aneurysm. HISTORY OF PRESENT ILLNESS AND HOSPITAL COURSE: The patient is a 74-year-old male, who was transferred from [facility] on May 31, 2019 for pulmonary embolism. The patient states that he was in his usual state of health until about a week ago when he developed left calf pain without swelling or redness. He then noted worsening of his baseline exertional shortness of breath over the past few days. While he was sitting working on his computer, he developed sudden onset se (more content not included)... Reason for Referral Specialty Diagnoses / Procedures Referred By Eliseo martel Referred To Contact Diagnoses Preop examination Hypertension, unspecified type Atrial fibrillation, unspecified type ([facility]) Type 2 diabetes mellitus without complication, 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 ([facility]) Former smoker Osteoarthritis of left knee, unspecified osteoarthritis type Urinary frequency Procedures ECG 12 lead Willie Woods Jr., DO [address] [place] [address] Referral ID Status Reason Start Date Expiration Date V isits Requested Visits Authorized [id number] Pending Review 11/27/2023 11/26/2024 1 1 Additional Source Comments (unrecognized sect ion and content) No Status Records FoundNo Status Records FoundNo Status Records FoundNo Status Records FoundNo Status Records FoundNo Status Records Found INFORMATION SOURCE (unrecogn ized section and content) DATE CREATED AUTHOR 07/14/2019 [facility] DATE CREATED AUTHOR AUTHOR'S ORGANIZ ATION 10/24/2021 [facility] DATE CREATED AUTHOR AUTHOR'S ORGANIZ ATION 11/19/2022 [facility] DATE CREATED AUTHOR AUTHOR'S ORGANIZ ATION 08/07/2023 [facility] DATE CREATED AUTHOR AUTHOR'S ORGANIZ ATION 12/07/2023 [facility] DATE CREATED AUTHOR AUTHOR'S ORGANIZ ATION 12/10/2023 [facility] d[facility] Specialists [facility] Care Teams (unrecognized sec tion and content) Team Facilitator Relationship Specialty Start Date End Date Benedict Vallecillo MD [address] [place] [id number] PCP - General Family Medicine 10/05/23 Team Facilitator Relationship Specialty Start Date End Date Benedict Vallecillo MD [address] [place] [id number] PCP - General Family Medicine 10/05/23 Team Facilitator Relationship Specialty Start Date End Date Benedict Vallecillo MD [address] [place] [phone] PCP - General Family Medicine 10/05/23 Team Facilitator Relationship Specialty Start Date End Date Benedict Vallecillo MD [address] [place] [phone] PCP - General Family Medicine 10/05/23 Reason for Visit (unrecogniz ed section and content) Reason Comments Follow-up Surgical clearance Reason Comments Pain FOR RECORDS PERTAINING TO PATIENTS WHO ARE OR HAVE BEEN ENROLLED IN A CHEMICAL DEPENDENCY/SUBSTANCEABUSE PROGRAM, SOME INFORMATION MAY BE OMITTED. This clinical summary was aggregated from multiple sources. Caution should be exercised in using it in the provision of clinical care. This summary normalizes information from multiple sources, and as a consequence, information in this document may materially change the coding, format and clinical context of patient data. In addition, data may be omitted in some cases. CLINICAL DECISIONS SHOULD BE BASED ON THE PRIMARY CLINICAL RECORDS. [facility] [employer] [facility]. provides no warranty or guarantee of the accuracy or completeness of information in this document.
[2023-12-11 11:41] LABS: Basophils Percent Auto 0.4 % (0.2-2.0); Eosinophils Absolute Auto 0.1 10^3/uL (0.0-0.7); Eosinophils Percent Auto 1.9 % (0.9-7.0); Hemoglobin 15.6 g/dL (14.0-18.0); Immature Granulocytes Abs Auto 0.02 10^3/uL (0.00-0.03); Immature Granulocytes Pct Auto 0.3 % (0.0-0.5); Lymphocytes Absolute Auto 1.8 10^3/uL (1.2-3.8); Lymphocytes Percent Auto 24.9 % (20.5-60.0); Mean Corpuscular HGB Conc 32.5 g/dL (29.9-35.2); Mean Corpuscular Hemoglobin 30.2 pg (25.9-34.0); Mean Corpuscular Volume 92.8 fL (80.0-94.0); Monocytes Absolute Auto 0.7 10^3/uL (0.3-0.8); Monocytes Percent Auto 9.4 % (1.7-12.0); Neutrophils Absolute Auto 4.6 10^3/uL (1.4-6.5); Neutrophils Percent Auto 63.1 % (43.0-75.0); Platelet Count 150 10^3/uL (150-450); Red Blood Count 5.17 10^6/uL (4.70-6.10); Red Cell Distribution Width 13.2 % (11.0-15.0); White Blood Count 7.3 10^3/uL (4.0-11.0)
[2023-12-11 11:46] LABS: Microalbumin Urine Random <1.3 mg/dL (<=30.0)
[2023-12-11 13:22] LABS: Alanine Aminotransferase 37 U/L (16-63); Albumin Globulin Ratio 1.1; Albumin Level 3.9 g/dL (3.4-5.0); Alkaline Phosphatase 117 U/L (46-116); Anion Gap 15.5; Aspartate Amino Transferase 25 U/L (15-37); BUN Creatinine Ratio 22.9; Bilirubin Direct 0.2 mg/dL (0.0-0.2); Bilirubin Total 0.8 mg/dL (0.2-1.0); Calcium 9.5 mg/dL (8.5-10.1); Carbon Dioxide 25.8 mmol/L (21.0-32.0); Chloride 107 mmol/L (98-107); Chol HDL Ratio 3.1; Cholesterol 116 mg/dL (<=200); Estimated GFR (African America >60 (>=60); Estimated GFR (Non-African Ame >60 (>=60); Globulin 3.5 g/dL; Glucose 93 mg/dL (74-106); HDL Cholesterol 38 mg/dL (40-60); Potassium 4.3 mmol/L (3.5-5.1); Sodium 144 mmol/L (136-145); Thyroid Stimulating Hormone 1.173 uIU/mL (0.358-3.740); Total Protein 7.4 g/dL (6.4-8.2); Triglycerides 161 mg/dL (<=150); VLDL CHOLESTEROL 32.2 mg/dL
[2023-12-11 13:24] LABS: Prostate Specific Antigen Dx 0.34 ng/mL (<=4.00)
== END 2023-12-11 11:12 | disposition home or self-care (01) ==
LOC: LAB 11:13
PROVIDERS: PCP Family Medicine; Visit Provider Family Medicine
DX: E78.2 Mixed hyperlipidemia (principal); I10 Essential (primary) hypertension; Z79.899 Other long term (current) drug therapy; Z12.5 Encounter for screening for malignant neoplasm of prostate; E66.9 Obesity, unspecified; E11.65 Type 2 diabetes mellitus with hyperglycemia
CPT/HCPCS: 36415; 80048; 80061; 80076; 82043; 84153; 84443; 85025

== ENCOUNTER 2024-02-29 07:52 | Outpatient (OUT) | payer MEDICARE, BC, SELFPAY ==
--- NOTE | 2024-02-29 08:00 | CA_ITS ---
Patient Name: SERGE SHINE MR#: [id number] : 1945 Exam Date: 02/29/2024 Ordering Doctor: DR WILLIE CHAVEZ M.D. ECHOCARDIOGRAM REPORT PROCEDURE: CA ECHO DOPPLER COMPLETE INDICATIONS: CAD evaluation, h/o pulmonary embolism, hypertension, diabetes COMPARISON: None. DESCRIPTION: COMPLETE ECHOCARDIOGRAM Real-time transthoracic echocardiography with 2D, M-mode, spectral and color flow Doppler performed. QUALITY: Technical quality was good. 72 , 224#, BP 118/68 LEFT VENTRICLE: Normal chamber size. Proximal septal hypertrophy (sigmoid septum). Normal systolic function. LV EF: Normal left ventricular ejection fraction, (>55%). DIASTOLIC: Diastolic function is indeterminate. ATRIAL SEPTUM: Visually appears intact. LEFT ATRIUM: Mild dilatation. RIGHT ATRIUM: Mild dilatation. RIGHT VENTRICLE: Normal chamber size. Normal right ventricular systolic function. TRICUSPID VALVE: Normal mobility and thickness. No stenosis with no regurgitation. MITRAL VALVE: Mildly thickened with normal mobility. No evidence of mitral valve stenosis. Mild mitral annular calcification. No mitral regurgitation. AORTIC VALVE: Normal trileaflet appearance. Mildly calcified aortic valve. Mildly diminished mobility. No evidence of aortic valve stenosis. No aortic regurgitation. AORTIC ROOT: Normal diameter and appearance. Ascending aorta is normal in size. PULMONIC VALVE: Normal thickness and mobility. No stenosis. Trivial regurgitation. PERICARDIUM: No evidence of pericardial effusion. IVC: Collapses with inspirations. PLEURA: CONCLUSION: 1. Normal left ventricular size and systolic function. LVEF is 55 to 60%. 2. Normal right ventricular size and systolic function. 3. Mild biatrial dilatation. 4. No significant valvular dysfunction. Adult Echocardiography Procedure Report Left Ventricle LVEDD (3.7 - 5.6 cm): 4.99 cm LVESD (2.2 - 4.0 cm): 4.07 cm LVIVS thickness (0.6 - 1.2 cm): 1.73 cm LVPW thickness (0.5 - 1.0 cm): 0.91 cm e': 0.09 m/s E - e': 5.94 LVOT Max Gradient: 4.64 mm[Hg] LVOT Area (cm2): 1.08 m/s Peak Velocity (LVOT): 1.08 m/s Mean Velocity (LVOT): 0.71 m/s LVOT Diameter 2.92 cm Left Atrium LA Volume Index (2D A2C): 19.64 ml/m2 Left Atrium Systolic Dimension: 3.44 cm Mitral Valve MV E to A Ratio: 0.52 Mitral Valve A-Wave Peak Velocity: 1.01 m/s Mitral Valve E-Wave Peak Velocity: 0.52 m/s Right Ventricle Aorta AO Root Diam: 4.22 cm Ascending Ao Diam: 3.32 cm Aortic Valve AoV Area (Peak Antoine): 4.85 cm2, 4.85 cm2 AoV Area (VTI): 5.38 cm2, 5.38 cm2 Peak Velocity(Antegrade Flow): 1.49 m/s Peak Gradient(Antegrade Flow): 8.84 mm[Hg] Mean Velocity(Antegrade Flow): 1.02 m/s Mean Gradient(Antegrade Flow): 4.92 mm[Hg] Velocity Time Integral: 25.13 cm Tricuspid Valve Pulmonic Valve Peak Velocity: 0.78 m/s Peak Gradient: 2.40 mm[Hg] Right Atrium Right Atrium Systolic Pressure: 40.75 ml, 40.75 ml Dictated by: Willie Chavez M.D. on 02/29/2024 at 18:12 Approved by: Willie Chavez M.D. on 02/29/2024 at 18:15
--- OUTSIDE RECORDS SUMMARY | 2024-02-29 08:03 | XMS_ITS | CCD ---
Author Organization [facility] Care Team Providers Care Patient Resource Coordinator Name Role Phone UNKNOWN, PROVIDER Admitting Unavailable LUX ORTIZ Referring Unavailable KATTYEREBENEDICT Melton Primary Care Unavailable JACQUELYN STEIN Attending Unavailable [place] Procedure Practitioner Unavailab le UNKNOWN, PROVIDER Surgeon Unavailable AVEL, DR BENEDICT Brush Consulting Unavailable NADEREGeronimo, DR BENEDICT Brush Attending Unavailable NADEREGeronimo, DR BENEDICT Brush Admitting Unavailable NADEREGeronimo, DR BENEDICT Brush Primary Care Unavailable NADEREGeronimo, DR BENEDICT Brush Primary Care Unavailable NADEREGeronimo, DR BENEDICT Brush Consulting Unavailable NADEREGeronimo, DR BENEDICT Brush Attending Unavailable NADERER, DR BENEDICT Brush Admitting Unavailable Benedict Vallecillo MD Primary Care Provider Unavailable Primary Care Provider UnavailWILLIE Coburn JR Referring Unavailabl WILLIE Brown JR Referring Unavailabl WILLIE Brown JR Attending Unavailabl WILLIE Brown JR Referring Unavailabl WILLIE Brown JR Attending Unavailabl WILLIE Brown JR Referring Unavailabl e WILLIE WOODS JR Referring Unavailabl e NADEREBENEDICT Melton Primary Care Unavailable WILLIE WOODS JR Referring Unavailabl e NADERERBENEDICT Primary Care Unavailable WILLIE WOODS JR Admitting Unavailabl WILLIE Brown JR Attending Unavailabl KVNG Ventura Attending Unavailable WILLIE DEL CID Attending Unavailable ANH POPE Attending Unavailable BENEDICT VALLECILLO Attending Unavailable JR. WOODS GEORGE C Attending Unavaila yunior WOODS JR., GEORGE C Referring Unavaila BERNICE Acosta Attending Unavailable GAL BAUTISTA Attending Unavailable BERNICE AVILA Referring Unavailable BENEDICT VALLECILLO Attending Unavailable BERNICE AVILA Attending Unavailable VIJAY WELCH Attending Unavailable JR. WOODS GEORGE C Referring Unavaila ble ESTEPHANIE PRESSLEY Attending Gauri WOODS JR., WILLIE Manzano Referring Unavaila GISELLE Taylor Attending Unavailable JR. INDY, WILLIE Manzano Referring Unavaila ESTEPHANIE Chambers Attending Unavailable JR. INDY, WILLIE Manzano Referring Unavaila GISELLE Taylor Attending Unavailable JR. INDY, WILLIE Manzano Referring Unavaila ESTEPHANIE Chambers Attending Unavailable JR. INDY, WILLIE Manzano Referring Unavaila GISELLE Taylor Attending Unavailable JR. INDY, WILLIE Manzano Referring UnavailBERNICE Waldne Attending Unavailable BERNICE AVILA Referring Unavailable Allergies Allergy Classification Reported Allergen(s) Allergy Type Date of Onset Reaction(s) Facility (1 source) 54887,00 Drug allergy (disorder) 05-31-2019 [facility] Repository Medications Current Medications Medication Drug [...] 50+Men) tablet as directed Orally 0 Active bcoqjlvg-oqrj-PV-calci um &mins (THERAGRAN-M) 9 mg iron-400 mcg tablet (1 source) xxjjhnct-ufdy-ZX - calcium &mins (THERAGRAN-M) 9 mg iron-400 mcg tablet Take 1 tablet by mouth in the morning. 0 Active vit C/E/zinc ox/ginny/lut/zeax (ICAPS AREDS2 ORAL) (1 source) take 1 tablet by mouth in the morning vit C/E/zinc ox/ginny/lut/zeax (ICAPS AREDS2 ORAL) Take 1 tablet by mouth in the morning. 0 Active Problems Active Problems Problem Classification Problem Date Documented Da te Episodic/Chronic Cardiac dysrhythmias (2 sources) Atrial fibrillation; Translations: [Unspecified atrial fibrillation] Onset: 12-03-2023 11-27-2023 Chronic Conditions associated with dizziness or vertigo (5 sources) Benign paroxysmal positional vertigo; Translations: [Benign paroxysmal vertigo, unspecified ear] Onset: 10-16-2023 10-16-2023 Episodic Conduction disorders (6 sources) Heart block ; Translations: [Conduction disorder, unspecified] Onset: 06-21-2019 04-22-2023 Chronic Coronary atherosclerosis and other heart disease (15 sources) Coronary arteriosclerosis; Translations: [Atherosclerotic heart disease of [place] coronary artery without angina pectoris] Onset: 06-21-2019 Resolved: 10-16-2023 04-22-2023 Chronic Diabetes mellitus with complications (11 sources) Type 2 diabetes mellitus with hyperglycemia; Translations: [Type 2 diabetes mellitus] Onset: 05-15-2022 Chronic Diabetes mellitus without complication (2 sources) Type 2 diabetes mellitus without complication; Translations: [Type 2 diabetes mellitus without complications] Onset: 12-03-2023 11-27-2023 Chronic Disorders of lipid metabolism (9 sources) Hyperlipidemia, unspecified; Translations: [Mixed hyperlipidemia] Onset: 11-17-2022 04-22-2023 Chronic Essential hypertension (14 sources) Essential (primary) hypertension; Translations: [Benign essential hypertension] Onset: 11-13-2022 Chronic Genitourinary symptoms and ill-defined conditions (2 sources) Increased frequency of urination; Translations: [Frequency of micturition] Onset: 12-03-2023 11-27-2023 Episodic Gout and other crystal arthropathies (5 sources) Gouty arthropathy; Translations: [Gout, unspecified] Onset: 10-16-2023 10-16-2023 Chronic Osteoarthritis (17 sources) Osteoarthritis of knee; Translations: [Osteoarthritis of knee, unspecified] Onset: 04-22-2023 04-22-2023 Chronic Other aftercare (1 source) Other half-way (current) drug therapy; Translations: [OTH ALF CURRENT DRUG THERAPY] Onset: 11-17-2022 Episodic Other liver diseases (5 sources) Non-alcoholic fatty liver; Translations: [Fatty (change of) liver, not elsewhere classified] Onset: 10-16-2023 10-16-2023 Chronic Other non-traumatic joint disorders (3 sources) Pain in left knee; Translations: [Pain in joint, lower leg] Onset: 12-29-2023 10-21-2023 Episodic Other screening for suspected conditions [...] embolism; Translations: [Chronic pulmonary embolism] Onset: 02-04-2023 04-22-2023 Chronic Pulmonary heart disease (8 sources) H/O: pulmonary embolus; Translations: [Personal history of pulmonary embolism] Onset: 12-21-2020 04-22-2023 Episodic Screening and history of mental health and substance abuse codes (2 sources) Ex-smoker; Translations: [Personal history of nicotine dependence] Onset: 12-03-2023 11-27-2023 Episodic Unclassified (1 source) left knee degenerative joint disease Onset: 12-29-2023 Past or Other Problems Problem Classification Problem Date Documented Da te Episodic/Chronic Coronary atherosclerosis and other heart disease (8 sources) Presence of coronary angioplasty implant and graft; Translations: [Percutaneous transluminal coronary angioplasty status] Onset: 02-04-2023 04-22-2023 Episodic Results Test Name Value Interpretation Reference Range Facility Office Visiton 02-10-2024 Follow-up visit [id number] Serge Shine 1945 M Date Provider Department Center 02/10/2024 WILLIE JEROME JASON Hanson [facility] Family History Problem Relation Age of Onset No Known Problems Mother No Known Problems Father Family Status - Relation Status Age at Mother Father Level of Service:33316 [place] OFFICE/OUTPATIENT ESTABLISHED LOW MDM 20 MIN Normal [facility] Glucose Glucometer (BldC) [M ass/Vol]on 12-29-2023 Glucose [Mass/Vol] 152 mg/dL High 65-99 [facility] XR KNEE LT 1 OR 2 VWSon 12-13 XR KNEE LT 1 OR 2 VWS XR KNEE LT 1 OR 2 VWS XR KNEE LT 1 OR 2 VWS HISTORY: Knee replacement. COMPARISON: None. IMPRESSION: 1. Knee prosthesis, joint effusion, swelling, no complication Finalized by Mark Toribio MD on 12/29/2023 11:36 AM Normal [facility] Bacteria identified Cx Nom ( U)on 12-04-2023 Service comment (Unsp spec) [Interp] NO GROWTH AT <1000 CFU/mL [facility] CBC AND AUTO DIFFon 12-03-19 ABSOLUTE BASOPHIL 0.0 X10E9/L Normal 0.0-0.2 [facility] Comment on above: Performed By: #### C JUANPABLO, CMP #### [facility] ([id number]) [address], [address] [place] [address] ABSOLUTE NEUTROPHIL 4.7 X10E9/L Normal 1.5-6.6 [facility] Comment on above: Performed By: #### C JUANPABLO, CMP #### [facility] ([id number]) [address], [address] [place] [address] Basophils/100 WBC (Bld) 0.5 % Normal [facility] Comment on above: Performed By: #### Jose Juan GERONIMO, CMP #### [facility] ([id number]) [address], [address] [place] [address] Eosinophils (Bld) [#/Vol] 0.1 10*3/uL Normal 0.0-0.4 [facility] Comment on above: Performed By: #### Jose Juan GERONIMO, CMP #### [facility] ([id number]) [address], [address] [place] [address] Eosinophils/100 WBC (Bld) 1.8 % Normal [facility] Comment on above: Performed By: #### Jose Juan GERONIMO, CMP #### [facility] ([id number]) [address], [address] [place] [address] Erythrocyte distribution width (RBC) [Ratio] 14.3 % Normal 11.5-15.0 [facility] Comment on above: Performed By: #### Jose Juan GERONIMO, CMP #### [facility] ([id number]) [address], [address] [place] [address] Hematocrit (Bld) [Volume fraction] 47.0 % Normal 39-49 [facility] Comment on above: Performed By: #### C BCA, CMP #### [facility] ([id number]) [address] [place] [address] Hemoglobin (Bld) [Mass/Vol] 15.9 g/dL Normal 13.0-17.0 [facility] Comment on above: Performed By: #### C BCA, CMP #### [facility] ([id number]) [address], [address] [place] [address] Lymphocytes (Bld) [#/Vol] 1.4 10*3/uL Normal 1.0-3.5 [facility] Comment on above: Performed By: #### C BCA, CMP #### [facility] ([id number]) [address] [facility] [address] [place] [address] Lymphocytes/100 WBC (Bld) 20.5 % Normal [facility] Comment on above: Performed By: #### C BCA, CMP #### [facility] ([id number]) [address], [facility] [address] [place] [address] MCH (RBC) [Entitic mass] 31.1 pg Normal 27-34 [facility] Comment on above: Performed By: #### C BCA, CMP #### [facility] ([id number]) [address] [address] [place] [address] MCHC (RBC) [Mass/Vol] 33.9 g/dL Normal 32-36 [facility] Comment on above: Performed By: #### C BCA, CMP #### [facility] ([id number]) [address] [address] [address] [place] [address] MCV (RBC) [Entitic vol] 92 fL Normal 80-100 [facility] Comment on above: Performed By: #### C BCA, CMP #### [facility] ([id number]) [address] [address] [place] [address] Monocytes (Bld) [#/Vol] 0.7 10*3/uL Normal 0-0.9 [facility] Comment on above: Performed By: #### C JUANPABLO, CMP #### [facility] ([id number]) [address], [address] [place] [address] Monocytes/100 WBC (Bld) 9.7 % Normal [facility] Comment on above: Performed By: #### C JUANPABLO, CMP #### [facility] ([id number]) [address], [address] [place] [address] Neutrophils/100 WBC (Bld) 67.5 % Normal [facility] Comment on above: Performed By: #### C JUANPABLO, CMP #### [facility] ([id number]) [address], [address] [place] [address] Platelet mean volume (Bld) [Entitic vol] 8.4 fL Normal 7-12 [facility] Comment on above: Performed By: #### C JUANPABLO, CMP #### [facility] ([id number]) [address], [address] [place] [address] Platelets (Bld) [#/Vol] 155 10*3/uL Normal 150-450 [facility] Comment on above: Performed By: #### C JUANPABLO, CMP #### [facility] ([id number]) [address], [address] [place] [address] RBC COUNT 5.12 X10E12/L Normal 4.10-5.70 [facility] Comment on above: Performed By: #### C JUANPABLO, CMP #### [facility] ([id number]) [address], [address] [place] [address] WBC (Bld) [#/Vol] 7.0 10*3/uL Normal 4.0-11.0 [facility] Comment on above: Performed By: #### C JUANPABLO, CMP #### [facility] ([id number]) [address], [address] [place] [address] CBC auto differentialon 11-13 Basophils (Bld) [#/Vol] [...] [facility] RBC (Bld) [#/Vol] 5.12 10*6/uL [facility] WBC corrected for nucl RBC Auto (Bld) [#/Vol] 7.0 [facility] COMPREHENSIVE METABOLIC PANE Yung 12-03-2023 Albumin [Mass/Vol] 4.2 g/dL Normal 3.2-5.3 [facility] Comment on above: Performed By: #### C BCA, CMP #### [facility] ([id number]) [address], [address] [place] [address] ALP [Catalytic activity/Vol] 103 U/L Normal 39-130 [facility] Comment on above: Performed By: #### C BCA, CMP #### [facility] ([id number]) [address], [address] [place] [address] ALT [Catalytic activity/Vol] 30 U/L Normal 0-40 [facility] Comment on above: Performed By: #### C BCA, CMP #### [facility] ([id number]) [address], [address] [place] [address] Anion gap [Moles/Vol] 12 mmol/L Normal 5-15 [facility] Comment on above: Performed By: #### C BCA, CMP #### [facility] ([id number]) [address], [address] [place] [address] AST [Catalytic activity/Vol] 28 U/L Normal 0-41 [facility] Comment on above: Performed By: #### C BCA, CMP #### [facility] ([id number]) [address], [address] [place] [address] Bilirubin [Mass/Vol] 0.7 mg/dL Normal 0.3-1.2 [facility] Comment on above: Performed By: #### C BCA, CMP #### [facility] ([id number]) [address], [address] [place] [address] Calcium [Mass/Vol] 9.9 mg/dL Normal 8.5-10.5 [facility] Comment on above: Performed By: #### C BCA, CMP #### [facility] ([id number]) [address], [address] [place] [address] Chloride [Moles/Vol] 106 mmol/L Normal 98-109 [facility] Comment on above: Performed By: #### C BCA, CMP #### [facility] ([id number]) [address], [address] [place] [address] CO2 [Moles/Vol] 27 mmol/L Normal 22-32 [facility] Comment on above: Performed By: #### C BCA, CMP #### [facility] ([id number]) [address] [address] [address] [place] [address] Creatinine [Mass/Vol] 1.15 mg/dL Normal 0.60-1.30 [facility] Comment on above: Result Comment: METH OD TRACEABLE TO IDMS STANDARD Performed By: #### C BCA, CMP #### [facility] ([id number]) [address], [address] [place] [address] GFR/1.73 sq M.predicted among non-blacks MDRD (S/P/Bld) [Vol rate/Area] 66 mL/min/{1.73_m2} Normal >59 [facility] Comment on above: Result Comment: Reported eGFR is based on the CKD-EPI 1 equation that does not use a race coefficient. Performed By: #### C BCA, CMP #### [facility] ([id number]) [address] [address] [address] [place] [address] Glucose [Mass/Vol] 94 mg/dL Normal 65-99 [facility] Comment on above: Performed By: #### C BCA, CMP #### [facility] ([id number]) [address] [place] [address] Potassium [Moles/Vol] 4.3 mmol/L Normal 3.5-5.0 [facility] Comment on above: Performed By: #### C BCA, CMP #### [facility] ([id number]) [address], [address] [place] [address] Protein [Mass/Vol] 7.0 g/dL Normal 6.0-8.0 [facility] Comment on above: Performed By: #### C BCA, CMP #### [facility] ([id number]) [address], [address] [place] [address] Sodium [Moles/Vol] 145 mmol/L Normal 134-146 [facility] Comment on above: Performed By: #### C BCA, CMP #### [facility] ([id number]) [address], [address] [place] [address] Urea nitrogen [Mass/Vol] 26 mg/dL Normal 5-27 [facility] Comment on above: Performed By: #### C BCA, CMP #### [facility] ([id number]) [address], [address] [place] [address] Comprehensive metabolic pane yung 12-03-2023 Albumin [Mass/Vol] 4.2 g/dL 3.2 - 5.3 g/dL [facility] ALP [Catalytic activity/Vol] 103 U/L 39 - 130 U/L [facility] ALT No additional P-5'-P [Catalytic activity/Vol] 30 U/L 0 - 40 U/L [facility] Anion gap [Moles/Vol] 12 mmol/L 5 - 15 mmol/L [facility] AST [Catalytic activity/Vol] 28 U/L 0 - 41 U/L [facility] Bilirubin [Mass/Vol] 0.7 mg/dL 0.3 - 1 .2 mg/dL [facility] Calcium [Mass/Vol] 9.9 mg/dL 8.5 - 10. 5 mg/dL [facility] Chloride [Moles/Vol] 106 mmol/L 98 - 10 9 mmol/L [facility] CO2 [Moles/Vol] 27 mmol/L 22 - 32 mmol/L [facility] Creatinine [Mass/Vol] 1.15 mg/dL 0.60 - 1.30 mg/dL [facility] Comment on above: METHOD TRACEABLE TO IDMI STANDARD eGFR (CKD-EPI)non-race dependent 66 - PINF [facility] Comment on above: Reported eGFR is based on the CKD-EPI 2020 equation that does not use a race coefficient. Glucose [Mass/Vol] 94 mg/dL 65 - 99 mg/dL [facility] Potassium [Moles/Vol] 4.3 mmol/L 3.5 - 5.0 mmol/L [facility] Protein [Mass/Vol] 7.0 g/dL 6.0 - 8.0 g/dL [facility] Sodium [Moles/Vol] 145 mmol/L 134 - 146 mmol/L [facility] Urea nitrogen [Mass/Vol] 26 mg/dL 5 - 27 mg/dL [facility] HGB A1C (GLYCO-HGB)on 2023 Glucose [Mass/Vol] 146 mg/dL Normal [facility] Comment on above: Performed By: #### C BCA, CMP #### [facility] ([id number]) [address] [place] [address], [address] [place] [address] HbA1c (Bld) [Mass fraction] 6.7 % High 4.4-5.6 [facility] Comment on above: Result Comment: NOTE ADA Guidelines Result HgbA1c Normal : less than 5.7 % Prediabetes : 5.7 % to 6.4 % Diabetes : > 6.4 % Use with caution in patients with abnormal hemoglobin variants as the half-life of red blood cells and in vivo glycation rates are affected. Performed By: #### C BCA, CMP #### [facility] ([id number]) [address] [place] [address], [address] [place] [address] Hemoglobin A1con 12-03-2023 Average glucose Estimated from glycated hemoglobin (Bld) [Mass/Vol] 146 mg/dL [facility] HbA1c (Bld) [Mass fraction] 6.7 % High 4.4 - 5.6 % [facility] Comment on above: NOTE ADA Guidelines Result HgbA1c Normal : less than 5.7 % Prediabetes : 5.7 % to 6.4 % Diabetes : > 6.4 % Use with caution in patients with abnormal hemoglobin variants as the half-life of red blood cells and in vivo glycation rates are affected. Interpretation and review of laboratory results Abnormal [facility] URINALYSISon 12-03-2023 Bilirubin Ql (U) Negative Normal NEG [facility] BLOOD/HGB Negative Normal NEG [facility] Color (U) YELLOW Normal YELLOW [facility] Glucose Ql (U) >1000 Abnormal NEG [facility] Ketones Ql (U) Negative Normal NEG [facility] Leukocyte esterase Test strip Ql (U) Negative Normal NEG [facility] Comment on above: Result Comment: HIGH CONCENTRATIONS OF GLUCOSE MAY DECREASE THE REACTIVITY OF THE DIPSTICK LEUKOCYTE TEST PAD. Nitrite Ql (U) Negative Normal NEG [facility] pH (U) 6.5 [pH] Normal 5.0-8.5 [facility] Protein Ql (U) Negative Normal NEG [facility] Specific gravity (U) [Rel density] 1.033 Normal 1.003-1.035 [facility] TURBIDITY CLEAR Normal CLEAR [facility] Urobilinogen (U) [Mass/Vol] mg/dL Normal <1.1 [facility] URINE CULTUREon 12-03-2023 Bacteria identified Cx Nom (U) CULTURE RESULTS NO GROWTH AT <1000 CFU/mL Normal [facility] Comment on above: Performed By: #### 6 30-4 #### [facility] ([id number]) [address] [place] [address] Urinalysison 12-03-2023 Bilirubin Ql (U) Negative Negative^Ne ga tive [facility] Color (U) YELLOW YELLOW^YELLOW [facility] Glucose (U) [Mass/Vol] mg/dL Abnormal Negative^Nega tive mg/dL [facility] Hemoglobin Auto test strip Ql (U) Negative Negative^Nega tive [facility] Interpretation and review of laboratory results Abnormal [facility] Ketones (U) [Mass/Vol] Negative Negative^Nega tive mg/dL [facility] Leukocyte esterase Auto test strip Ql (U) Negative Negative^Nega tive [facility] Comment on above: HIGH CONCENTRATIONS OF GLUCOSE MAY DECREASE THE REACTIVITY OF THE DIPSTICK LEUKOCYTE TEST PAD. Nitrite Auto test strip Ql (U) Negative Negative^Nega tive [facility] pH (U) 6.5 [pH] 5.0 - 8.5 [facility] Protein (U) [Mass/Vol] Negative Negative^Nega tive mg/dL [facility] Specific gravity Refractometry automated (U) [Rel density] 1.033 1.003 - 1.035 [facility] Turbidity Ql (U) CLEAR CLEAR^CLEAR [facility] Urobilinogen Qn (U) NINF [facility] XR CHEST 2 VWSon 12-03-2023 XR CHEST [...] Mackey MD on 12/03/2023 4:17 PM Normal [facility] XR Chest PA and Lateralon CHEST RADIOGRAPH [...] Ricardo Mackey MD on 12/03/2023 4:17 PM DAIJARARicardo Garza MD - 12/03/2023 CHEST RADIOGRAPH 12/03/2023 9:51 [...] Ricardo Mackey MD on 12/03/2023 4:17 PM [facility] Radiology [facility] (narrative[facility] Chest PA and LateralOrder ed By: Ricardo Mackey on 12-03-2023 [facility] Work Phone: XR Knee - left 1 or 2 Viewso n 10-21-2023 Imaging Result: AP and lateral views of left knee showed severe varus deformity with [id number]-gc-[id number] articulation to the medial joint line, flattening [...] joint disease left knee with varus deformity [facility] Radiology Study observation (narrative) [facility] MLR HEMOGLOBIN A1Con 024 Glucose [Mass/Vol] 146 mg/dL [facility] HbA1c (Bld) [Mass fraction] 6.7 % High 4.5 - 6.2 % [facility] Comment on above: ADA RECOMMENDED LIMI T 4.0 - 6.0 ADA THERAPEUTIC TARGET < 7.0 ACTION SUGGESTED > 7.0 Interpretation and review of laboratory results Abnormal [facility] Office Visiton 08-05-2023 Follow-up visit [id number] Serge Shine 1945 M Date Provider Department Center 08/05/2023 KVNG MARIANO [facility] Family History Problem Relation Age of Onset No Known Problems Mother No Known Problems Father Family Status - Relation Status Age at Mother Father Level of Service:20836 [place] OFFICE/OUTPATIENT ESTABLISHED MOD MDM 30-39 MIN Normal [facility] CBC AUTO DIFFon 11-13-2022 BASO # 0.0 103/ul Normal 0.0-0.1 [facility] Comment on above: Performed By: #### C BC #### [facility] [address] [place] [address] Dr. Demetris Allred Basophils/100 WBC (Bld) 0.4 % Normal 0.2-2.0 [facility] Comment on above: Performed By: #### C BC #### [facility] [address] [place] [address] Dr. Demetris Allred EO # 0.2 103/ul Normal 0.0-0.7 [facility] Comment on above: Performed By: #### C BC #### [facility] [address] [place] [address] Dr. Demetris Allred Eosinophils/100 WBC (Bld) 2.2 % Normal 0.9-7.0 [facility] Comment on above: Performed By: #### C BC #### [facility] [address] [place] [address] Dr. Demetris Allred Erythrocyte distribution width (RBC) [Ratio] 12.7 % Normal 11.0-15.0 [facility] Comment on above: Performed By: #### C BC #### [facility] [address] [place] [address] Dr. Demetris Allred Hematocrit (Bld) [Volume fraction] 44.8 % Normal 42.0-54.0 [facility] Comment on above: Performed By: #### C BC #### [facility] [address] [place] [address] Dr. Demetris Allred Hemoglobin (Bld) [Mass/Vol] 15.0 g/dL Normal 14.0-18.0 [facility] Comment on above: Performed By: #### C BC #### [facility] [address] [place] [address] Dr. Demetris Allred IG # 0.02 10e3/ul Normal 0.00-0.03 [facility] Comment on above: Performed By: #### C BC #### [facility] [address] [place] [address] Dr. Demetris Allred IG % 0.3 % Normal 0.0-0.5 [facility] Comment on above: Performed By: #### C BC #### [facility] [address] [place] [address] Dr. Demetris Allred LYMPH # 1.6 103/ul Normal 1.2-3.8 [facility] Comment on above: Performed By: #### C BC #### [facility] [address] [place] [address] Dr. Demetris Allred Lymphocytes/100 WBC (Bld) 19.9 % Critically low 20.5-60.0 [facility] Comment on above: Performed By: #### C BC #### [facility] [address] [place] [address] Dr. Demetris Allred MANUAL DIFF REQ NO Normal [facility] Comment on above: Performed By: #### C BC #### [facility] [address] [place] [address] Dr. Demetris Allred MCH (RBC) [Entitic mass] 30.2 pg Normal 25.9-34.0 [facility] Comment on above: Performed By: #### C BC #### [facility] [address] [place] [address] Dr. Demetris Allred MCHC (RBC) [Mass/Vol] 33.5 g/dL Normal 29.9-35.2 [facility] Comment on above: Performed By: #### C BC #### [facility] [address] [place] [address] Dr. Demetris Allred MCV (RBC) [Entitic vol] 90.1 fL Normal 80.0-94.0 [facility] Comment on above: Performed By: #### C BC #### [facility] [address] [address] [address] Demetris Allred MONO # 0.6 103/ul Normal 0.3-0.8 [facility] Comment on above: Performed By: #### C BC #### [facility] [address] [address] [address] Demetris Allred Monocytes/100 WBC (Bld) 8.2 % Normal 1.7-12.0 [facility] Comment on above: Performed By: #### C BC #### [facility] [address] [address] [address] Demetris Allred NEUT # 5.4 103/ul Normal 1.4-6.5 [facility] Comment on above: Performed By: #### C BC #### [facility] [address] [address] [address] Demetris Allred Neutrophils/100 WBC (Bld) 69.0 % Normal 43.0-75.0 [facility] Comment on above: Performed By: #### C BC #### [facility] [address] [address] [address] Demetris Allred Platelet mean volume (Bld) [Entitic vol] 9.6 fL Normal 9.5-13.5 [facility] Comment on above: Performed By: #### C BC #### [facility] [address] [address] [address] Demetris Allred PLT 169 103/ul Normal 150-450 [facility] Comment on above: Performed By: #### C BC #### [facility] [address] [address] [address] Demetris Allred RBC 4.97 106/ul Normal 4.70-6.10 [facility] Comment on above: Performed By: #### C BC #### [facility] [address] [address] [address] Demetris Allred WBC 7.8 103/ul Normal 4.0-11.0 [facility] Comment on above: Performed By: #### C BC #### [facility] [address] [address] [address] Demetris Allred GLYCOHEMOGLOBIN A1Con 2022 ADA RECOMMENDATION SEE BELOW Normal [facility] Comment on above: Result Comment: ADA RECOMMENDED LIMIT 4.0 - 6.0 ADA THERAPEUTIC TARGET < 7.0 ACTION SUGGESTED > 7.0 Performed By: #### A 1C #### [facility] [address] [place] [address] Dr. Demetris Allred Glucose [Mass/Vol] 206 mg/dL Normal [facility] Comment on above: Performed By: #### A 1C #### [facility] [address] [place] [address] Dr. Demetris Allred HbA1c (Bld) [Mass fraction] 8.8 % Critically high 4.5-6.2 [facility] Comment on above: Performed By: #### A 1C #### [facility] [address] [place] [address] Dr. Demetris Allred LIPID PROFILEon 11-13-2022 CHOL-HDL RATIO NORM SEE BELOW Normal [facility] Comment on above: Result Comment: 3.3 - 4.4 LOW RISK 4.4 - 7.1 AVERAGE RISK 7.1 - 11.0 MODERATE RISK >11.0 HIGH RISK Performed By: #### L ANN LIPID, BMP #### [facility] [address] [place] [address] Dr. Demetris Allred Cholesterol [Mass/Vol] 137 mg/dL Normal <=200 [facility] Comment on above: Performed By: #### L IVLENA, LIPID, BMP #### [facility] [address] [place] [address] Dr. Demetris Allred Cholesterol in HDL [Mass/Vol] 35 mg/dL Critically low 40-60 [facility] Comment on above: Performed By: #### L IVER, LIPID, BMP #### [facility] [address] [place] [address] Dr. Demetris Allred Cholesterol in LDL [Mass/Vol] 24.2 mg/dL Normal [facility] Comment on above: Performed By: #### L IVER, LIPID, BMP #### [facility] [address] [address] [address] Demetris Allred Cholesterol.total/Ch olesterol in HDL [Mass ratio] 3.9 {ratio} Normal [facility] Comment on above: Performed By: #### L IVER, LIPID, BMP #### [facility] [address] [address] [address] Demetris Allred HDL NORMAL > or = 60 mg/dl - LO W CARDIOVASCULAR RISK <40 mg/dl - HIGH CARDIOVASCULAR RISK Normal [facility] Comment on above: Performed By: #### L IVER, LIPID, BMP #### [facility] [address] [address] [address] Demetris Allred LDL CALC NORMAL SEE BELOW Normal [facility] Comment on above: Result Comment: <100 mg/dl OPTIMAL 100 - 129 mg/dl NEAR OR ABOVE OPTIMAL 130 - 159 mg/dl BORDERLINE HIGH 160 - 189 mg/dl HIGH >190 mg/dl VERY HIGH Performed By: #### L IVER, LIPID, BMP #### [facility] [address] [place] [address] Dr. Demetris Allred Triglyceride [Mass/Vol] 389 mg/dL Critically high <=150 [facility] Comment on above: Performed By: #### L IVER, LIPID, BMP #### [facility] [address] [place] [address] Dr. Demetris Allred VLDL CALC 77.8 mg/dL Normal [facility] Comment on above: Performed By: #### L IVER, LIPID, BMP #### [facility] [address] [address] [address] Demetris Allred LIVER PROFILEon 11-13-2022 Albumin [Mass/Vol] 3.7 g/dL Normal 3.4-5.0 [facility] Comment on above: Performed By: #### L IVER, LIPID, BMP #### [facility] [address] [place] [address] Dr. Demetris Allred Albumin/Globulin [Mass ratio] 0.9 {ratio} Normal [facility] Comment on above: Performed By: #### L IVER, LIPID, BMP #### [facility] [address] [address] [address] Demetris Allred ALP [Catalytic activity/Vol] 133 U/L Critically high 46-116 [facility] Comment on above: Performed By: #### L IVER, LIPID, BMP #### [facility] [address] [address] [address] Demetris Allred ALT [Catalytic activity/Vol] 49 U/L Normal 16-63 [facility] Comment on above: Performed By: #### L IVER, LIPID, BMP #### [facility] [address] [address] [address] Demetris Allred AST [Catalytic activity/Vol] 31 U/L Normal 15-37 [facility] Comment on above: Performed By: #### L IVER, LIPID, BMP #### [facility] [address] [place] [address] Dr. Demetris Allred BILI, CONJUGATED 0.2 mg/dL Normal 0.0-0.2 [facility] Comment on above: Performed By: #### L IVER, LIPID, BMP #### [facility] [address] [address] [address] Demetris Allred Bilirubin [Mass/Vol] 1.0 mg/dL Normal 0.2-1.0 [facility] Comment on above: Performed By: #### L IVER, LIPID, BMP #### [facility] [address] [place] [address] Dr. Demetris Allred Globulin (S) [Mass/Vol] 4.1 g/dL Normal [facility] Comment on above: Performed By: #### L IVER, LIPID, BMP #### [facility] [address] [address] [address] Demetris Allred Protein [Mass/Vol] 7.8 g/dL Normal 6.4-8.2 [facility] Comment on above: Performed By: #### L IVER, LIPID, BMP #### [facility] [address] [address] [address] Demetris Allred MICROALBUMIN, RAND URon 03-0 mALB 2.7 mg/L Normal <=30.0 [facility] Comment on above: Performed By: #### M ALBR #### [facility] [address] [address] [address] Demetris Allred PROF CHEM 8 (BAS METB)on Anion gap [Moles/Vol] 12.4 mmol/L Normal [facility] Comment on above: Performed By: #### L IVER, LIPID, BMP #### [facility] [address] [place] [address] Dr. Demetris Allred Calcium [Mass/Vol] 9.5 mg/dL Normal 8.5-10.1 [facility] Comment on above: Performed By: #### L IVER, LIPID, BMP #### [facility] [address] [place] [address] Dr. Demetris Allred Chloride [Moles/Vol] 101 mmol/L Normal 98-107 [facility] Comment on above: Performed By: #### L IVER, LIPID, BMP #### [facility] [address] [place] [address] Dr. Demetris Allred CO2 [Moles/Vol] 28.9 mmol/L Normal 21.0-32.0 [facility] Comment on above: Performed By: #### L IVER, LIPID, BMP #### [facility] [address] [place] [address] Dr. Demetris Allred Creatinine [Mass/Vol] 0.81 mg/dL Normal 0.70-1.30 [facility] Comment on above: Performed By: #### L IVER, LIPID, BMP #### [facility] [address] [place] [address] Dr. Demetris Allred EGFR-AF FIJIAN >60 Normal >=60 [facility] Comment on above: Performed By: #### L IVER, LIPID, BMP #### [facility] [address] [place] [address] Dr. Demetris Allred EGFR-NON AF FIJIAN >60 Normal >=60 [facility] Comment on above: Performed By: #### L IVER, LIPID, BMP #### [facility] [address] [place] [address] Dr. Demetris Allred Glucose [Mass/Vol] 252 mg/dL Critically high 74-106 [facility] Comment on above: Performed By: #### L IVER, LIPID, BMP #### [facility] [address] [address] [address] Demetris Allred Potassium [Moles/Vol] 4.3 mmol/L Normal 3.5-5.1 [facility] Comment on above: Performed By: #### L IVER, LIPID, BMP #### [facility] [address] [address] [address] Demetris Allred Sodium [Moles/Vol] 138 mmol/L Normal 136-145 [facility] Comment on above: Performed By: #### L IVER, LIPID, BMP #### [facility] [address] [address] [address] Demetris Allred Urea nitrogen [Mass/Vol] 16.0 mg/dL Normal 7.0-18.0 [facility] Comment on above: Performed By: #### L IVER, LIPID, BMP #### [facility] [address] [address] [address] Demetris Allred Urea nitrogen/Creatinine [Mass ratio] 19.8 mg/mg Normal [facility] Comment on above: Performed By: #### L IVER, LIPID, BMP #### [facility] [address] [place] [address] Dr. Demetris Allred GLYCOHEMOGLOBIN A1Con 2021 ADA RECOMMENDATION SEE BELOW Normal [facility] Comment on above: Result Comment: ADA RECOMMENDED LIMIT 4.0 - 6.0 ADA THERAPEUTIC TARGET < 7.0 ACTION SUGGESTED > 7.0 Performed By: #### A 1C #### [facility] [address] [address] [address] Demetris Allred Glucose [Mass/Vol] 174 mg/dL Normal [facility] Comment on above: Performed By: #### A 1C #### [facility] [address] [place] [address] Dr. Demetris Allred HbA1c (Bld) [Mass fraction] 7.7 % Critically high 4.5-6.2 [facility] Comment on above: Performed By: #### A 1C #### [facility] [address] [address] [address] Demetris Allred POC GLUCOSE LABon 06-06-2019 Glucose [Mass/Vol] 174 mg/dL High 70-100 [facility] Comment on above: Performed By: #### 5 3629, 81480, 26028, 64765 #### [facility] [address] [place] [address], [facility] Glucose [Mass/Vol] 147 mg/dL High 70-100 [facility] Comment on above: Performed By: #### 5 3629, 43484, 34700, 37120 #### [facility] [address] UFH HEPARIN ASSAYon 06-06-20 19 UNFRACTIONATED HEPARIN 0.47 IU/mL Normal 0.30-0.70 [facility] Comment on above: Result Comment: Mclean roxaban and Apixaban will interfere with the anti Xa assay used to monitor UFH and LMWH. Performed By: #### 5 3629, 03369, 54593, 29537 #### [facility] [address] [facility] [place] [address], [facility] BASIC METABOLIC PANELon 05-16 Calcium [Mass/Vol] 8.4 mg/dL Low 8.6-10.3 [facility] Comment on above: Order Comment: No: D o not add to previous draw Performed By: #### 5 3629, 41033, 09710, 36278 #### [facility] [address] [place] [address], [facility] Chloride [Moles/Vol] 102 mmol/L Normal 98-107 [facility] Comment on above: Order Comment: No: D o not add to previous draw Performed By: #### 5 3629, 16559, 49196, 97219 #### [facility] [address] [place] [address], [place] CO2 [Moles/Vol] 25 mmol/L Normal 21-31 [facility] Comment on above: Order Comment: No: D o not add to previous draw Performed By: #### 5 3629, 07184, 63131, 26685 #### [facility] [address] [place] [address], [place] Creatinine [Mass/Vol] 0.95 mg/dL Normal 0.70-1.30 [facility] Comment on above: Order Comment: No: D o not add to previous draw Performed By: #### 5 3629, 98295, 18325, 47941 #### [facility] [address] [place] [address], [place] GFR/1.73 sq M predicted among blacks MDRD (S/P/Bld) [Vol rate/Area] mL/min/{1.73_m2} Normal >60 [facility] Comment on above: Order Comment: No: D o not add to previous draw Result Comment: Calc ulation may not be valid for patients over 70 years Performed By: #### 5 3629, 13902, 43968, 36681 #### [facility] [address] [place] [address], [place] GFR/1.73 sq M predicted among non-blacks MDRD (S/P/Bld) [Vol rate/Area] mL/min/{1.73_m2} Normal >60 [facility] Comment on above: Order Comment: No: D o not add to previous draw Result Comment: Calc ulation may not be valid for patients over 70 years Performed By: #### 5 3629, 84631, 53526, 67288 #### [facility] [address] [place] [address], [place] Glucose [Mass/Vol] 181 mg/dL High 70-100 [facility] Comment on above: Order Comment: No: D o not add to previous draw Performed By: #### 5 3629, 18082, 49914, 93003 #### [facility] [address] [place] [address], [place] Potassium [Moles/Vol] 3.8 mmol/L Normal 3.5-5.1 [facility] Comment on above: Order Comment: No: D o not add to previous draw Performed By: #### 5 3629, 14717, 34948, 08498 #### [facility] [address] [place] [address], [place] Sodium [Moles/Vol] 133 mmol/L Low 136-145 [facility] Comment on above: Order Comment: No: D o not add to previous draw Performed By: #### 5 3629, 65973, 86056, 00262 #### [facility] [address] [place] [address], [place] Urea nitrogen [Mass/Vol] 19 mg/dL Normal 7-25 [facility] Comment on above: Order Comment: No: D o not add to previous draw Performed By: #### 5 3629, 73414, 79912, 47831 #### [facility] [address] [place] [address], [place] CBC COMPLETE BLOOD COUNTon 0 - Erythrocyte distribution width (RBC) [Ratio] 14.3 % Normal 11.5-15.0 [facility] Comment on above: Order Comment: No: D o not add to previous draw Performed By: #### 5 3629, 73188, 26259, 22347 #### [facility] [address] [place] [address], [place] Hematocrit (Bld) [Volume fraction] 39.1 % Normal 39.0-50.0 [facility] Comment on above: Order Comment: No: D o not add to previous draw Performed By: #### 5 3629, 42105, 19731, 41100 #### [facility] [address] [place] [address], [place] Hemoglobin (Bld) [Mass/Vol] 12.6 g/dL Low 13.0-17.0 [facility] Comment on above: Order Comment: No: D o not add to previous draw Performed By: #### 5 362, 61026, 77748, 42433 #### [facility] [address] [place] [address], [facility] MCH (RBC) [Entitic mass] 28.8 pg Normal 27.0-33.0 [facility] Comment on above: Order Comment: No: D o not add to previous draw Performed By: #### 5 362, 84042, 39534, 80408 #### [facility] [address] [place] [id number], [facility] MCHC (RBC) [Mass/Vol] 32.2 g/dL Normal 32.0-35.0 [facility] Comment on above: Order Comment: No: D o not add to previous draw Performed By: #### 5 362, 81898, 50883, 54054 #### [facility] [address] [place] [id number], [facility] MCV (RBC) [Entitic vol] 89.5 fL Normal 82.0-98.0 [facility] Comment on above: Order Comment: No: D o not add to previous draw Performed By: #### 5 362, 96139, 66995, 95384 #### [facility] [address] [place] [address], [facility] Nucleated RBC/100 WBC (Bld) [Ratio] 0 % Normal 0-0 [facility] Comment on above: Order Comment: No: D o not add to previous draw Performed By: #### 5 362, 89194, 49786, 62472 #### [facility] [address] [place] [id number], [facility] PLAT CNT 142 10*3/uL Low 150-400 [facility] Comment on above: Order Comment: No: D o not add to previous draw Performed By: #### 5 362, 53832, 82280, 78019 #### [facility] [address] [place] [address], [place] RBC (Bld) [#/Vol] 4.37 10*6/uL Normal 4.20-5.70 [facility] Comment on above: Order Comment: No: D o not add to previous draw Performed By: #### 5 3629, 38776, 09775, 16382 #### [facility] [address] [place] [address], [place] WBC (Bld) [#/Vol] 5.94 10*3/uL Normal 4.00-10.60 [facility] Comment on above: Order Comment: No: D o not add to previous draw Performed By: #### 5 3629, 26247, 46079, 55504 #### [facility] [address] [place] [address], [place] POC GLUCOSE LABon 06-05-2019 Glucose [Mass/Vol] 187 mg/dL High 70-100 [facility] Comment on above: Performed By: #### 5 3629, 65078, 33904, 07685 #### [facility] [address] [place] [address], [place] Glucose [Mass/Vol] 218 mg/dL High 70-100 [facility] Comment on above: Performed By: #### 5 3629, 24429, 29533, 26106 #### [facility] [address] [place] [address], [place] Glucose [Mass/Vol] 190 mg/dL High 70-100 [facility] [facility] Comment on above: Performed By: #### 5 3629, 20621, 38431, 67892 #### [facility] [address] [place] [address], [place] Glucose [Mass/Vol] 184 mg/dL High 70-100 [facility] Comment on above: Performed By: #### 5 362, 86976, 68557, 86971 #### [facility] [address] [place] [address], [facility] Glucose [Mass/Vol] 180 mg/dL High 70-100 [facility] Comment on above: Performed By: #### 5 3629, 81933, 37366, 28183 #### [facility] [address] [place] [address], [facility] UFH HEPARIN ASSAYon 06-05-20 19 UNFRACTIONATED HEPARIN 0.41 IU/mL Normal 0.30-0.70 The [facility] Comment on above: Result Comment: Mclean roxaban and Apixaban will interfere with the anti Xa assay used to monitor UFH and LMWH. Performed By: #### 5 3629, 84117, 30662, 85940 #### [facility] [address] [place] [address], [facility] BASIC METABOLIC PANELon 05-16 Calcium [Mass/Vol] 8.4 mg/dL Low 8.6-10.3 [facility] Comment on above: Order Comment: No: D o not add to previous draw Performed By: #### 5 3629, 96150, 14689, 49689 #### [facility] [address] [place] [address], [facility] Chloride [Moles/Vol] 102 mmol/L Normal 98-107 [facility] Comment on above: Order Comment: No: D o not add to previous draw Performed By: #### 5 3629, 98063, 89104, 80595 #### [facility] [address] [place] [address], [place] CO2 [Moles/Vol] 26 mmol/L Normal 21-31 [facility] Comment on above: Order Comment: No: D o not add to previous draw Performed By: #### 5 3629, 51227, 35247, 73766 #### [facility] [address] [place] [address], [place] Creatinine [Mass/Vol] 0.93 mg/dL Normal 0.70-1.30 [facility] Comment on above: Order Comment: No: D o not add to previous draw Performed By: #### 5 3629, 00066, 12290, 06893 #### [facility] [address] [place] [address], [place] GFR/1.73 sq M predicted among blacks MDRD (S/P/Bld) [Vol rate/Area] mL/min/{1.73_m2} Normal >60 [facility] Comment on above: Order Comment: No: D o not add to previous draw Result Comment: Calc ulation may not be valid for patients over 70 years Performed By: #### 5 3629, 03454, 30538, 11686 #### [facility] [address] [place] [address], [facility] GFR/1.73 sq M predicted among non-blacks MDRD (S/P/Bld) [Vol rate/Area] mL/min/{1.73_m2} Normal >60 [facility] Comment on above: Order Comment: No: D o not add to previous draw Result Comment: Calc ulation may not be valid for patients over 70 years Performed By: #### 5 3629, 13321, 45709, 58595 #### [facility] [address] [place] [address], [place] Glucose [Mass/Vol] 159 mg/dL High 70-100 [facility] Comment on above: Order Comment: No: D o not add to previous draw Performed By: #### 5 3629, 12491, 39095, 88435 #### [facility] [address] [place] [address], [place] Potassium [Moles/Vol] 4.4 mmol/L Normal 3.5-5.1 [facility] Comment on above: Order Comment: No: D o not add to previous draw Performed By: #### 5 3629, 65968, 63394, 77566 #### [facility] [address] [place] [address], [place] Sodium [Moles/Vol] 135 mmol/L Low 136-145 [facility] Comment on above: Order Comment: No: D o not add to previous draw Performed By: #### 5 3629, 00471, 88643, 68816 #### [facility] [address] [facility] [address] Urea nitrogen [Mass/Vol] 17 mg/dL Normal 7-25 [facility] Comment on above: Order Comment: No: D o not add to previous draw Performed By: #### 5 3629, 44560, 44343, 52309 #### [facility] [address] [facility] [place] [address], [facility] CBC W/DIFFon 06-04-2019 ABS BASOPHILS 0.0 10*3/uL Normal 0.0-0.2 The [facility] Comment on above: Order Comment: No: D o not add to previous draw Performed By: #### 5 3629, 13311, 41800, 96468 #### [facility] [address] [facility]. [address] ABS IMM GRANS 0.0 10*3/uL Normal 0.0-0.2 [facility] Comment on above: Order Comment: No: D o not add to previous draw Performed By: #### 5 3629, 47735, 69079, 80788 #### [facility] [address] [facility]. [address] ABS NEUTROPHILS 5.7 10*3/uL Normal 1.6-7.6 The [facility] Comment on above: Order Comment: No: D o not add to previous draw Performed By: #### 5 3629, 00477, 18430, 58681 #### [facility] [address] [place] [address], [facility] Basophils/100 WBC (Bld) 0.4 % Normal 0.0-1.0 [facility] Comment on above: Order Comment: No: D o not add to previous draw Performed By: #### 5 3629, 46138, 24752, 92991 #### [facility] [address] [place] [address], [facility] Eosinophils (Bld) [#/Vol] 0.1 10*3/uL Normal 0.0-0.5 [facility] Comment on above: Order Comment: No: D o not add to previous draw Performed By: #### 5 362, 29898, 51549, 79196 #### [facility] [address] [place] [address], [place] Eosinophils/100 WBC (Bld) 1.7 % Normal 0.0-6.0 [facility] Comment on above: Order Comment: No: D o not add to previous draw Performed By: #### 5 362, 53642, 38409, 28092 #### [facility] [address] [place] [address], [facility] Erythrocyte distribution width (RBC) [Ratio] 14.3 % Normal 11.5-15.0 [facility] Comment on above: Order Comment: No: D o not add to previous draw Performed By: #### 5 362, 88507, 17318, 11025 #### [facility] [address] [place] [address], [place] Hematocrit (Bld) [Volume fraction] 42.7 % Normal 39.0-50.0 [facility] Comment on above: Order Comment: No: D o not add to previous draw Performed By: #### 5 362, 70085, 39756, 52421 #### [facility] [address] [place] [address], [place] Hemoglobin (Bld) [Mass/Vol] 13.6 g/dL Normal 13.0-17.0 [facility] Comment on above: Order Comment: No: D o not add to previous draw Performed By: #### 5 362, 81635, 18801, 75175 #### [facility] [address] [place] [address], [facility] IMMATURE GRANS 0.3 % Normal 0.0-1.0 The [facility] Comment on above: Order Comment: No: D o not add to previous draw Performed By: #### 5 3629, 96813, 29701, 85020 #### [facility] [address] [facility] [place] [address], [facility] Lymphocytes (Bld) [#/Vol] 1.3 10*3/uL Normal 1.2-4.0 [facility] Comment on above: Order Comment: No: D o not add to previous draw Performed By: #### 5 3629, 95531, 09858, 86287 #### [facility] [address] [facility] [place] [address], [facility] Lymphocytes/100 WBC (Bld) 16.9 % Low 20.0-45.0 [facility] Comment on above: Order Comment: No: D o not add to previous draw Performed By: #### 5 3629, 04120, 76395, 63060 #### [facility] [address] [facility] [place] [address], [facility] MCH (RBC) [Entitic mass] 28.9 pg Normal 27.0-33.0 [facility] Comment on above: Order Comment: No: D o not add to previous draw Performed By: #### 5 3629, 56469, 95060, 92813 #### [facility] [address] [facility] [place] [address], [facility] MCHC (RBC) [Mass/Vol] 31.9 g/dL Low 32.0-35.0 [facility] Comment on above: Order Comment: No: D o not add to previous draw Performed By: #### 5 3629, 69377, 48145, 46219 #### [facility] [address] [place] [address], [facility] MCV (RBC) [Entitic vol] 90.9 fL Normal 82.0-98.0 [facility] Comment on above: Order Comment: No: D o not add to previous draw Performed By: #### 5 3629, 80215, 32259, 92166 #### [facility] [address] [place] [address], [facility] Monocytes (Bld) [#/Vol] 0.6 10*3/uL Normal 0.1-1.0 [facility] Comment on above: Order Comment: No: D o not add to previous draw Performed By: #### 5 3629, 66887, 05411, 64952 #### [facility] [address] [facility] [place] [address], [facility] MONOS 7.5 % Normal 5.0-12.0 [facility] Comment on above: Order Comment: No: D o not add to previous draw Performed By: #### 5 362, 90174, 27127, 99684 #### [facility] [address] [place] [address], [facility] Neutrophils/100 WBC (Bld) 73.2 % High 40.0-72.0 [facility] Comment on above: Order Comment: No: D o not add to previous draw Performed By: #### 5 362, 23633, 85840, 81114 #### [facility] [address] [facility] [place] [address], [facility] Nucleated RBC/100 WBC (Bld) [Ratio] 0 % Normal 0-0 [facility] Comment on above: Order Comment: No: D o not add to previous draw Performed By: #### 5 3629, 82857, 07165, 75195 #### [facility] [address] [place] [id number], [facility] PLAT CNT 153 10*3/uL Normal 150-400 [facility] Comment on above: Order Comment: No: D o not add to previous draw Performed By: #### 5 362, 87196, 81727, 30759 #### [facility] [address] [place] [address], [facility] RBC (Bld) [#/Vol] 4.70 10*6/uL Normal 4.20-5.70 [facility] Comment on above: Order Comment: No: D o not add to previous draw Performed By: #### 5 3629, 26918, 93476, 67779 #### [facility] [address] [place] [address], [facility] WBC (Bld) [#/Vol] 7.83 10*3/uL Normal 4.00-10.60 [facility] Comment on above: Order Comment: No: D o not add to previous draw Performed By: #### 5 3629, 45691, 91035, 07640 #### [facility] [address] [place] [address], [facility] MAGNESIUM BLOODon 06-04-2019 Magnesium [Mass/Vol] 2.0 mg/dL Normal 1.9-2.7 [facility] Comment on above: Order Comment: No: D o not add to previous draw Performed By: #### 5 3629, 39708, 16013, 31441 #### [facility] [address] [place] [address], [facility] PHOSPHORUS BLOODon 9 Phosphate [Mass/Vol] 2.4 mg/dL Low 2.5-5.0 [facility] Comment on above: Order Comment: No: D o not add to previous draw Performed By: #### 5 3629, 75171, 96861, 97849 #### [facility] [address] [place] [address], [place] POC GLUCOSE LABon 06-04-2019 Glucose [Mass/Vol] 176 mg/dL High 70-100 [facility] Comment on above: Performed By: #### 5 3629, 30483, 88417, 88321 #### [facility] [address] [place] [address], [place] Glucose [Mass/Vol] 188 mg/dL High 70-100 [facility] Comment on above: Performed By: #### 5 3629, 13408, 41889, 70582 #### [facility] [address] [place] [address], [facility] Glucose [Mass/Vol] 162 mg/dL High 70-100 [facility] Comment on above: Performed By: #### 5 3629, 05356, 79182, 30520 #### [facility] [address] [place] [address], [facility] UFH HEPARIN ASSAYon 06-04-20 19 UNFRACTIONATED HEPARIN 0.46 IU/mL Normal 0.30-0.70 The [facility] Comment on above: Result Comment: Mclean roxaban and Apixaban will interfere with the anti Xa assay used to monitor UFH and LMWH. Performed By: #### 5 3629, 59202, 96975, 93930 #### [facility] [address] [place] [address], [facility] UNFRACTIONATED HEPARIN 0.42 IU/mL Normal 0.30-0.70 [facility] Comment on above: Result Comment: Rosanne roxaban and Apixaban will interfere with the anti Xa assay used to monitor UFH and LMWH. Performed By: #### 5 3629, 12824, 82482, 62478 #### [facility] [address] [place] [address], [facility] UNFRACTIONATED HEPARIN 0.39 IU/mL Normal 0.30-0.70 [facility] Comment on above: Result Comment: Mclean roxaban and Apixaban will interfere with the anti Xa assay used to monitor UFH and LMWH. Performed By: #### 5 3629, 71179, 94683, 48492 #### [facility] [address] [place] [id number], [facility] UNFRACTIONATED HEPARIN 0.12 IU/mL Critically low 0.30-0.70 [facility] Comment on above: Result Comment: Mclean roxaban and Apixaban will interfere with the anti Xa assay used to monitor UFH and LMWH. RESULTS CHECKED AND CALLED. ACCURATELY READ BACK BY LEANNE BEATTY RN @ 0022 on 06-04-19 Performed By: #### 5 3629, 73837, 41672, 38773 #### [facility] [address] [place] [address], [facility] BASIC METABOLIC PANELon 09-2 Calcium [Mass/Vol] 8.3 mg/dL Low 8.6-10.3 [facility] Comment on above: Order Comment: No: D o not add to previous draw Performed By: #### 3 1046, 79234, 18394, 09309 #### [facility] [address] [place] [id number], [facility] Chloride [Moles/Vol] 103 mmol/L Normal 98-107 [facility] Comment on above: Order Comment: No: D o not add to previous draw Performed By: #### 3 1046, 99016, 97674, 18212 #### [facility] [address] [place] [address], [facility] CO2 [Moles/Vol] 23 mmol/L Normal 21-31 [facility] Comment on above: Order Comment: No: D o not add to previous draw Performed By: #### 3 1046, 15757, 33860, 19284 #### [facility] [address] [place] [id number], [facility] Creatinine [Mass/Vol] 0.88 mg/dL Normal 0.70-1.30 [facility] Comment on above: Order Comment: No: D o not add to previous draw Performed By: #### 3 1046, 06621, 46044, 79350 #### [facility] [address] [place] [id number], [facility] GFR/1.73 sq M predicted among blacks MDRD (S/P/Bld) [Vol rate/Area] mL/min/{1.73_m2} Normal >60 [facility] Comment on above: Order Comment: No: D o not add to previous draw Result Comment: Calc ulation may not be valid for patients over 70 years Performed By: #### 3 1046, 99951, 56644, 61594 #### [facility] [address] [place] [address], [place] GFR/1.73 sq M predicted among non-blacks MDRD (S/P/Bld) [Vol rate/Area] mL/min/{1.73_m2} Normal >60 [facility] Comment on above: Order Comment: No: D o not add to previous draw Result Comment: Calc ulation may not be valid for patients over 70 years Performed By: #### 3 1046, 38935, 85678, 45519 #### [facility] [address] [place] [address], [place] Glucose [Mass/Vol] 152 mg/dL High 70-100 [facility] on [facility]: Order Comment: No: D o not add to previous draw Performed By: #### 3 1046, 10468, 84536, 83368 #### [facility] [address] [place] [address], [place] Potassium [Moles/Vol] 4.2 mmol/L Normal 3.5-5.1 [facility] Comment on above: Order Comment: No: D o not add to previous draw Performed By: #### 3 1046, 14739, 75046, 34067 #### [facility] [address] [place] [address], [place] Sodium [Moles/Vol] 134 mmol/L Low 136-145 [facility] Comment on above: Order Comment: No: D o not add to previous draw Performed By: #### 3 1046, 68908, 55548, 07185 #### [facility] [address] [place] [address], [place] Urea nitrogen [Mass/Vol] 14 mg/dL Normal 7-25 [facility] Comment on above: Order Comment: No: D o not add to previous draw Performed By: #### 3 1046, 63457, 77652, 28557 #### [facility] [address] [place] [address], [facility] CBC W/DIFFon 06-03-2019 ABS BASOPHILS 0.0 10*3/uL Normal 0.0-0.2 The [facility] Comment on above: Order Comment: No: D o not add to previous draw Performed By: #### 3 1046, 09730, 61590, 70872 #### [facility] [address] ABS IMM GRANS 0.0 10*3/uL Normal 0.0-0.2 [facility] Comment on above: Order Comment: No: D o not add to previous draw Performed By: #### 3 1046, 98035, 11545, 39370 #### [facility] [address] ABS NEUTROPHILS 6.9 10*3/uL Normal 1.6-7.6 The [facility] Comment on above: Order Comment: No: D o not add to previous draw Performed By: #### 3 1046, 61334, 03180, 17305 #### [facility] [address] Basophils/100 WBC (Bld) 0.4 % Normal 0.0-1.0 [facility] Comment on above: Order Comment: No: D o not add to previous draw Performed By: #### 3 1046, 35508, 02712, 54929 #### [facility] [address] [place] [address], [facility] Eosinophils (Bld) [#/Vol] 0.1 10*3/uL Normal 0.0-0.5 [facility] Comment on above: Order Comment: No: D o not add to previous draw Performed By: #### 3 1046, 50607, 89624, 85030 #### [facility] [address] [place] [address], [facility] Eosinophils/100 WBC (Bld) 0.8 % Normal 0.0-6.0 [facility] Comment on above: Order Comment: No: D o not add to previous draw Performed By: #### 3 1046, 21115, 59134, 74432 #### [facility] [address] [place] [address], [facility] Erythrocyte distribution width (RBC) [Ratio] 14.3 % Normal 11.5-15.0 [facility] Comment on above: Order Comment: No: D o not add to previous draw Performed By: #### 3 1046, 58866, 16436, 97335 #### [facility] [address] [place] [address], [facility] Hematocrit (Bld) [Volume fraction] 45.0 % Normal 39.0-50.0 [facility] Comment on above: Order Comment: No: D o not add to previous draw Performed By: #### 3 1046, 67430, 64151, 81758 #### [facility] [address] [place] [address], [facility] Hemoglobin (Bld) [Mass/Vol] 14.5 g/dL Normal 13.0-17.0 [facility] Comment on above: Order Comment: No: D o not add to previous draw Performed By: #### 3 1046, 70975, 81707, 82326 #### [facility] [address] [place] [address], [place] IMM PLATELET FRAC 3.3 % Normal 0.8-6.3 The [facility] Comment on above: Order Comment: No: D o not add to previous draw Performed By: #### 3 1046, 48750, 98332, 66322 #### [facility] [address] [place] [address], [place] IMMATURE GRANS 0.3 % Normal 0.0-1.0 The [facility] Comment on above: Order Comment: No: D o not add to previous draw Performed By: #### 3 1046, 42000, 24756, 03845 #### [facility] [address] [facility] [place] [address], [facility] Lymphocytes (Bld) [#/Vol] 1.2 10*3/uL Normal 1.2-4.0 [facility] Comment on above: Order Comment: No: D o not add to previous draw Performed By: #### 3 1046, 09511, 12421, 97422 #### [facility] [address] [facility] [place] [address], [facility] Lymphocytes/100 WBC (Bld) 13.5 % Low 20.0-45.0 [facility] Comment on above: Order Comment: No: D o not add to previous draw Performed By: #### 3 1046, 13444, 27098, 32998 #### [facility] [address] [facility] [place] [address], [facility] MCH (RBC) [Entitic mass] 29.1 pg Normal 27.0-33.0 [facility] Comment on above: Order Comment: No: D o not add to previous draw Performed By: #### 3 1046, 89610, 36358, 96916 #### [facility] [address] [facility] [place] [address], [facility] MCHC (RBC) [Mass/Vol] 32.2 g/dL Normal 32.0-35.0 [facility] Comment on above: Order Comment: No: D o not add to previous draw Performed By: #### 3 1046, 25894, 63965, 65174 #### [facility] [address] [facility] [place] [id number], [facility] MCV (RBC) [Entitic vol] 90.2 fL Normal 82.0-98.0 [facility] Comment on above: Order Comment: No: D o not add to previous draw Performed By: #### 3 1046, 09071, 19100, 36515 #### [facility] [address] [place] [address], [facility] Monocytes (Bld) [#/Vol] 0.7 10*3/uL Normal 0.1-1.0 [facility] Comment on above: Order Comment: No: D o not add to previous draw Performed By: #### 3 1046, 16547, 97201, 03410 #### [facility] [address] [place] [address], [facility] MONOS 7.8 % Normal 5.0-12.0 [facility] Comment on above: Order Comment: No: D o not add to previous draw Performed By: #### 3 1046, 55093, 52147, 23460 #### [facility] [address] [place] [address], [facility] Neutrophils/100 WBC (Bld) 77.2 % High 40.0-72.0 [facility] Comment on above: Order Comment: No: D o not add to previous draw Performed By: #### 3 1046, 39540, 08018, 96026 #### [facility] [address] [facility] [place] [place] [address], [facility] Nucleated RBC/100 WBC (Bld) [Ratio] 0 % Normal 0-0 [facility] Comment on above: Order Comment: No: D o not add to previous draw Performed By: #### 3 1046, 81331, 69509, 87988 #### [facility] [address] [facility] [place] [address], [facility] [place] PLAT CNT 134 10*3/uL Low 150-400 [facility] Comment on above: Order Comment: No: D o not add to previous draw Performed By: #### 3 1046, 71766, 74281, 60877 #### [facility] [address] [place] [address], [facility] RBC (Bld) [#/Vol] 4.99 10*6/uL Normal 4.20-5.70 [facility] Comment on above: Order Comment: No: D o not add to previous draw Performed By: #### 3 1046, 63468, 51053, 55643 #### [facility] [address] WBC (Bld) [#/Vol] 8.90 10*3/uL Normal 4.00-10.60 [facility] Comment on above: Order Comment: No: D o not add to previous draw Performed By: #### 3 1046, 08260, 26187, 96614 #### [facility] 3000 [facility]. [address] Cardiovascular Lab Reporton 06-03-2019 Cardiovascular Lab Report [facility] Patient Name: Serge Shine [facility] MR #: [id number] Physician: Willie Madrigal [facility] Service Date: 06/02/2019 Division of Birthdate: 1945 Cardiology Room #: [id number] Adult Cardiovascular Services [facility] [address] [place] [address] Cardiovascular Laboratory Report INDICATION: The patient is [...] signed informed consent. He was brought to clinical laboratory aide in a fasting state. The right wrist area was prepped and draped in usual fashion. Modified Mason's test was favorable. Access in the right radial artery was obtained. Using micropuncture technique, a 6-[place] x 11 cm Hydrophilic sheath was advanced. Verapamil was given through the sheath and heparin was administered intravenously. Bilateral selective coronary angiography was then performed using 6-[place] JL3.5 and JR4 diagnostic catheters. Note that initial catheter advancement over the brachial area was facilitated using an angled Glidewire. Catheters were removed. Therapeutic ACT was confirmed during the rest of the procedure. A 6-[place] JR4 guiding catheter was advanced and used to engage the right coronary ostium. A AktiVaxwater wire was advanced to the distal RCA. Balloon angioplasty in the mid RCA was performed using an Emerge 3.5 x 12 mm balloon inflated at 10 atmospheres. Angiography revealed suboptimal results. This was treated using deployment of a Synergy 3.5 x 20 mm drug-eluting stent deployed at 11 atmospheres and post dilated using NC Quantum Moultrie 3.5 x 15 mm noncompliant balloon inflated at 18 atmospheres throughout the length of the stented segment. Additional postdilatation using NC Quantum Moultrie 4.0 x 8 mm noncompliant balloon was [...] Cid M.D. Date Trans: 06/03/2019 04:36 Trudi/elías [id number] cc: Benedict Vallecillo M.D. [address] [facility] [address] Normal [facility] MAGNESIUM BLOODon 06-03-2019 Magnesium [Mass/Vol] 1.9 mg/dL Normal 1.9-2.7 [facility] Comment on above: Order Comment: No: D o not add to previous draw Performed By: #### 3 1046, 80983, 94182, 45861 #### [facility] [address] [place] [address], [facility] PHOSPHORUS BLOODon 9 Phosphate [Mass/Vol] 2.3 mg/dL Low 2.5-5.0 [facility] Comment on above: Order Comment: No: D o not add to previous draw Performed By: #### 3 1046, 33876, 87784, 60258 #### [facility] [address] [place] [address], [place] POC GLUCOSE LABon 06-03-2019 Glucose [Mass/Vol] 175 mg/dL High 70-100 [facility] Comment on above: Performed By: #### 5 3629, 17565, 55689, 62644 #### [facility] [address] [place] [address], [place] Glucose [Mass/Vol] 223 mg/dL High 70-100 [facility] Comment on above: Performed By: #### 5 3629, 04875, 78682, 23967 #### [facility] [address] [place] [address], [place] Glucose [Mass/Vol] 156 mg/dL High 70-100 [facility] Comment on above: Performed By: #### 5 3629, 63260, 50214, 43179 #### [facility] [address] [place] [address], [place] UFH HEPARIN ASSAYon 06-03-20 19 UNFRACTIONATED HEPARIN 0.20 IU/mL Low 0.30-0.70 [facility] Comment on above: Result Comment: Mclean roxaban and Apixaban will interfere with the anti Xa assay used to monitor UFH and LMWH. Performed By: #### 5 3629, 26824, 80573, 94849 #### [facility] [address] [place] [address], [facility] UNFRACTIONATED HEPARIN <0.10 Critically low 0.30-0.70 [facility] Comment on above: Result Comment: Mclean roxaban and Apixaban will interfere with the anti Xa assay used to monitor UFH and LMWH. Result called to TRAVIS ANDREW 0737 Performed By: #### 5 3629, 82722, 50346, 54217 #### [facility] [address] [place] [address], [facility] BASIC METABOLIC PANELon 05-15 Calcium [Mass/Vol] 8.4 mg/dL Low 8.6-10.3 [facility] Comment on above: Order Comment: No: D o not add to previous draw Performed By: #### 3 1046, 90145, 64680, 05060 #### [facility] [address] [place] [address], [place] Chloride [Moles/Vol] 103 mmol/L Normal 98-107 [facility] Comment on above: Order Comment: No: D o not add to previous draw Performed By: #### 3 1046, 05661, 12662, 92736 #### [facility] [address] [place] [address], [place] CO2 [Moles/Vol] 26 mmol/L Normal 21-31 [facility] Comment on above: Order Comment: No: D o not add to previous draw Performed By: #### 3 1046, 08834, 49552, 34993 #### [facility] [address] [place] [address], [facility] Creatinine [Mass/Vol] 1.07 mg/dL Normal 0.70-1.30 [facility] Comment on above: Order Comment: No: D o not add to previous draw Performed By: #### 3 1046, 15790, 08175, 72245 #### [facility] [address] [place] [address], [place] GFR/1.73 sq M predicted among blacks MDRD (S/P/Bld) [Vol rate/Area] mL/min/{1.73_m2} Normal >60 [facility] Comment on above: Order Comment: No: D o not add to previous draw Result Comment: Calc ulation may not be valid for patients over 70 years Performed By: #### 3 1046, 91715, 90880, 99238 #### [facility] [address] [place] [address], [facility] GFR/1.73 sq M predicted among non-blacks MDRD (S/P/Bld) [Vol rate/Area] mL/min/{1.73_m2} Normal >60 [facility] Comment on above: Order Comment: No: D o not add to previous draw Result Comment: Calc ulation may not be valid for patients over 70 years Performed By: #### 3 1046, 76435, 44036, 68255 #### [facility] [address] [place] [address], [place] Glucose [Mass/Vol] 155 mg/dL High 70-100 [facility] Comment on above: Order Comment: No: D o not add to previous draw Performed By: #### 3 1046, 88726, 71201, 33945 #### [facility] [address] [place] [address], [facility] Potassium [Moles/Vol] 4.7 mmol/L Normal 3.5-5.1 [facility] Comment on above: Order Comment: No: D o not add to previous draw Performed By: #### 3 1046, 87125, 27516, 78809 #### [facility] [address] [place] [address], [place] Sodium [Moles/Vol] 135 mmol/L Low 136-145 [facility] Comment on above: Order Comment: No: D o not add to previous draw Performed By: #### 3 1046, 54184, 96632, 12114 #### [facility] [address] [place] [address], [place] Urea nitrogen [Mass/Vol] 17 mg/dL Normal 7-25 [facility] Comment on above: Order Comment: No: D o not add to previous draw Performed By: #### 3 1046, 57697, 44691, 20175 #### [facility] [address] [place] [address], [place] CBC COMPLETE BLOOD COUNTon 0 06-02-2019 Erythrocyte distribution width (RBC) [Ratio] 14.3 % Normal 11.5-15.0 [facility] Comment on above: Order Comment: No: D o not add to previous draw Performed By: #### 3 1046, 65701, 65881, 76221 #### [facility] [address] [place] [address], [facility] Hematocrit (Bld) [Volume fraction] 46.3 % Normal 39.0-50.0 [facility] Comment on above: Order Comment: No: D o not add to previous draw Performed By: #### 3 1046, 37747, 19107, 50186 #### [facility] [address] [place] [address], [facility] Hemoglobin (Bld) [Mass/Vol] 14.7 g/dL Normal 13.0-17.0 [facility] Comment on above: Order Comment: No: D o not add to previous draw Performed By: #### 3 1046, 16113, 33826, 18108 #### [facility] [address] [place] [address], [facility] IMM PLATELET FRAC 3.4 % Normal 0.8-6.3 [facility] Comment on above: Order Comment: No: D o not add to previous draw Performed By: #### 3 1046, 81914, 72246, 64466 #### [facility] [address] [place] [address], [facility] MCH (RBC) [Entitic mass] 29.0 pg Normal 27.0-33.0 [facility] Comment on above: Order Comment: No: D o not add to previous draw Performed By: #### 3 1046, 10935, 99201, 74992 #### [facility] [address] [place] [address], [place] MCHC (RBC) [Mass/Vol] 31.7 g/dL Low 32.0-35.0 [facility] Comment on above: Order Comment: No: D o not add to previous draw Performed By: #### 3 1046, 03172, 78810, 29231 #### [facility] [address] [place] [address], [facility] MCV (RBC) [Entitic vol] 91.3 fL Normal 82.0-98.0 [facility] Comment on above: Order Comment: No: D o not add to previous draw Performed By: #### 3 1046, 93561, 92710, 49622 #### [facility] [address] [place] [address], [facility] Nucleated RBC/100 WBC (Bld) [Ratio] 0 % Normal 0-0 [facility] Comment on above: Order Comment: No: D o not add to previous draw Performed By: #### 3 1046, 44220, 59708, 32300 #### [facility] [address] [facility] [place] [address], [facility] PLAT CNT 125 10*3/uL Low 150-400 [facility] Comment on above: Order Comment: No: D o not add to previous draw Performed By: #### 3 1046, 21539, 97130, 90099 #### [facility] [address] [facility] [place] [address], [facility] RBC (Bld) [#/Vol] 5.07 10*6/uL Normal 4.20-5.70 [facility] Comment on above: Order Comment: No: D o not add to previous draw Performed By: #### 3 1046, 16412, 03478, 03071 #### [facility] [address] [place] [address], [place] WBC (Bld) [#/Vol] 8.85 10*3/uL Normal 4.00-10.60 [facility] Comment on above: Order Comment: No: D o not add to previous draw Performed By: #### 3 1046, 82048, 47882, 56866 #### [facility] [address] Erythrocyte distribution width (RBC) [Ratio] 14.0 % Normal 11.5-15.0 [facility] Comment on above: Order Comment: No: D o not add to previous draw Performed By: #### 3 1046, 11477, 88731, 85507 #### [facility] [address] [place] [address], [facility] Hematocrit (Bld) [Volume fraction] 45.2 % Normal 39.0-50.0 [facility] Comment on above: Order Comment: No: D o not add to previous draw Performed By: #### 3 1046, 96395, 12785, 51713 #### [facility] [address] [place] [address], [facility] Hemoglobin (Bld) [Mass/Vol] 14.2 g/dL Normal 13.0-17.0 [facility] Comment on above: Order Comment: No: D o not add to previous draw Performed By: #### 3 1046, 25027, 55448, 95384 #### [facility] [address] [facility] [place] [address], [facility] IMM PLATELET FRAC 3.8 % Normal 0.8-6.3 [facility] Comment on above: Order Comment: No: D o not add to previous draw Performed By: #### 3 1046, 23121, 69552, 87741 #### [facility] [address] [facility] [place] [address], [facility] MCH (RBC) [Entitic mass] 28.9 pg Normal 27.0-33.0 [facility] Comment on above: Order Comment: No: D o not add to previous draw Performed By: #### 3 1046, 61988, 02471, 29240 #### [facility] [address] [place] [id number], [facility] MCHC (RBC) [Mass/Vol] 31.4 g/dL Low 32.0-35.0 [facility] Comment on above: Order Comment: No: D o not add to previous draw Performed By: #### 3 1046, 81755, 10461, 01223 #### [facility] [address] [place] [id number], [facility] MCV (RBC) [Entitic vol] 92.1 fL Normal 82.0-98.0 [facility] Comment on above: Order Comment: No: D o not add to previous draw Performed By: #### 3 1046, 05550, 45458, 83066 #### [facility] [address] [place] [address], [facility] Nucleated RBC/100 WBC (Bld) [Ratio] 0 % Normal 0-0 [facility] Comment on above: Order Comment: No: D o not add to previous draw Performed By: #### 3 1046, 82203, 37828, 04334 #### [facility] [address] [place] [address], [facility] PLAT CNT 119 10*3/uL Low 150-400 [facility] Comment on above: Order Comment: No: D o not add to previous draw Performed By: #### 3 1046, 34186, 28479, 94826 #### [facility] [address] [place] [address], [facility] RBC (Bld) [#/Vol] 4.91 10*6/uL Normal 4.20-5.70 [facility] Comment on above: Order Comment: No: D o not add to previous draw Performed By: #### 3 1046, 53395, 24293, 79133 #### [facility] [address] [place] [address], [place] WBC (Bld) [#/Vol] 8.36 10*3/uL Normal 4.00-10.60 [facility] Comment on above: Order Comment: No: D o not add to previous draw Performed By: #### 3 1046, 69869, 04764, 02449 #### [facility] [address] Cardiovascular Lab Reporton 06-02-2019 Cardiovascular Lab Report [facility] Patient Name: Serge Shine [facility] Miguelina MR #: [id number] Physician: Willie Madrigal [facility] Service Date: 06/01/2019 Division of Birthdate: 1945 Cardiology Room #: 3CD [id number] Adult Cardiovascular Services [facility] [address] [place] [address] Cardiovascular Laboratory Report INDICATION: The patient is [...] informed consent. He was brought to the clinical laboratory aide in a fasting state. The right neck area was prepped and draped in usual fashion. Using ultrasound guidance and micropuncture technique, 2 separate accesses were obtained in the right internal jugular vein and two 6-[place] x 11 cm sheaths were placed. A 6-[place] Cespedes catheter was used for right heart [...] inpatient Cardiology service. Electronically Signed by: Willie Del Cid M.D. 07/03/2019 12:18 P Willie Del Cid M.D. Date Dict: 06/01/2019/10:49 Trudi/Willie Del Cid M.D. Date Trans: 06/02/2019 08:24 Trudi/elías [id number] cc: Benedict Vallecillo M.D. [address] [facility] [address] Normal [facility] Cardiovascular Lab Report [facility] Patient Name: Serge Shine [facility] MR #: [id number] Physician: Willie Peñaloza M.D. Medicine Service Date: 06/01/2019 Division of Birthdate: 1945 Cardiology Room #: 3CD [id number] Adult Cardiovascular Services [place] [address] Cardiovascular Laboratory Report CLINICAL PRESENTATION: The patient [...] the procedure. NOT BILLABLE Date Dict: 06/01/2019/06:11 P/Claudia Garcia MD Date Trans: 06/02/2019 08:22 A/elías [id number] cc: Benedict Vallecillo M.D. [address] [facility] [address] Normal [facility] FIBRINOGENon 06-02-2019 FIBRINOGEN 404 mg/dL Normal 150-425 [facility] Comment on above: Order Comment: No: D o not add to previous draw Performed By: #### 3 1046, 67100, 46866, 56664 #### [facility] [address] [place] [address], [place] FIBRINOGEN 374 mg/dL Normal 150-425 [facility] Comment on above: Order Comment: No: D o not add to previous draw Performed By: #### 3 1046, 43188, 25116, 58288 #### [facility] [address] [place] [address], [place] MAGNESIUM BLOODon 06-02-2019 Magnesium [Mass/Vol] 2.0 mg/dL Normal 1.9-2.7 [facility] Comment on above: Order Comment: No: D o not add to previous draw Performed By: #### 3 1046, 21567, 22850, 58980 #### [facility] [address] [place] [address], [place] PHOSPHORUS BLOODon 9 Phosphate [Mass/Vol] 3.3 mg/dL Normal 2.5-5.0 [facility] Comment on above: Order Comment: No: D o not add to previous draw Performed By: #### 3 1046, 14290, 27366, 76484 #### [facility] [address] [place] [address], [place] POC GLUCOSE LABon 06-02-2019 Glucose [Mass/Vol] 144 mg/dL High 70-100 [facility] Comment on above: Performed By: #### 3 1046, 83219, 52955, 99536 #### [facility] [address] [place] [address], [place] Glucose [Mass/Vol] 203 mg/dL High 70-100 [facility] Comment on above: Performed By: #### 3 1046, 32846, 73669, 35980 #### [facility] [address] [place] [address], [place] Glucose [Mass/Vol] 141 mg/dL High 70-100 [facility] Comment on above: Performed By: #### 3 1046, 18270, 62118, 35426 #### [facility] [address] TROPONIN-Ion 06-02-2019 Troponin I.cardiac [Mass/Vol] 0.17 ng/mL Critically high 0.00-0.04 [facility] Comment on above: Order Comment: No: D o not add to previous draw Result Comment: M-AK EVIOUS CRITICAL RESULT REFERENCE RANGES: 0.00 - 0.04 ng/ml NORMAL 0.05 - 0.50 ng/ml INDETERMINATE > 0.50 ng/ml CONSISTENT WITH AN M.I. Performed By: #### 3 1046, 53071, 72537, 33455 #### [facility] [address] [facility] [address] UFH HEPARIN ASSAYon 06-02-20 19 UNFRACTIONATED HEPARIN 0.41 IU/mL Normal 0.30-0.70 [facility] Comment on above: Result Comment: Mclean roxaban and Apixaban will interfere with the anti Xa assay used to monitor UFH and LMWH. Performed By: #### 3 1046, 89139, 28098, 69805 #### [facility] [address] [facility] [place] [address], [facility] UNFRACTIONATED HEPARIN >1.00 Critically high 0.30-0.70 [facility] Comment on above: Order Comment: This order is a replacement of the rejected order with accession [id number]. Result Comment: Rosanne roxaban and Apixaban will interfere with the anti Xa assay used to monitor UFH and LMWH. PATIENT ON HEPARING FROM BELT MAKER HELPER, ELENITA VALENTE R.N. STATES NO WHERE TO DRAW THIS PATIENT EXCEPT ABOVE AN IV SITE, AFTER IV HAS BEEN TURNED OFF FOR ONE HALF HOUR. RESULTS MAY NOT BE ACCURATE UFH 1.15 Performed By: #### 3 1046, 92717, 31033, 78077 #### [facility] [address] UNFRACTIONATED HEPARIN 0.20 IU/mL Low 0.30-0.70 [facility] Comment on above: Result Comment: Rosanne roxaban and Apixaban will interfere with the anti Xa assay used to monitor UFH and LMWH. Performed By: #### 3 1046, 34344, 50577, 36024 #### [facility] [address] [place] [address], [facility] APTTon 06-01-2019 aPTT Coag (Bld) [Time] 60.4 s High 25.0-35.0 [facility] Comment on above: Order Comment: No: D [...] THIS PURPOSE. Performed By: #### 3 1046, 69569, 31888, 12683 #### [facility] [address] BASIC METABOLIC PANELon 05-15 Calcium [Mass/Vol] 8.7 mg/dL Normal 8.6-10.3 [facility] Comment on above: Order Comment: No: D o not add to previous draw Performed By: #### 3 1046, 76621, 86631, 59603 #### [facility] [address] [place] [id number], [facility] Chloride [Moles/Vol] 103 mmol/L Normal 98-107 [facility] Comment on above: Order Comment: No: D o not add to previous draw Performed By: #### 3 1046, 46702, 06744, 40753 #### [facility] [address] [place] [address], [place] CO2 [Moles/Vol] 26 mmol/L Normal 21-31 [facility] Comment on above: Order Comment: No: D o not add to previous draw Performed By: #### 3 1046, 38771, 76515, 32405 #### [facility] [address] [place] [address], [place] Creatinine [Mass/Vol] 1.19 mg/dL Normal 0.70-1.30 [facility] Comment on above: Order Comment: No: D o not add to previous draw Performed By: #### 3 1046, 74963, 60348, 82872 #### [facility] [address] [place] [address], [place] GFR/1.73 sq M predicted among blacks MDRD (S/P/Bld) [Vol rate/Area] mL/min/{1.73_m2} Normal >60 [facility] Comment on above: Order Comment: No: D o not add to previous draw Result Comment: Calc ulation may not be valid for patients over 70 years Performed By: #### 3 1046, 34867, 38116, 39085 #### [facility] [address] [place] [address], [place] GFR/1.73 sq M predicted among non-blacks MDRD (S/P/Bld) [Vol rate/Area] 60 ml/min/1.73sq m Abnormal >60 [facility] Comment on above: Order Comment: No: D o not add to previous draw Result Comment: Calc ulation may not be valid for patients over 70 years Performed By: #### 3 1046, 04650, 37713, 79192 #### [facility] [address] [place] [address], [place] Glucose [Mass/Vol] 144 mg/dL High 70-100 [facility] Comment on above: Order Comment: No: D o not add to previous draw Performed By: #### 3 1046, 46590, 95317, 60566 #### [facility] [address] [place] [address], [place] Potassium [Moles/Vol] 4.6 mmol/L Normal 3.5-5.1 [facility] Comment on above: Order Comment: No: D o not add to previous draw Performed By: #### 3 1046, 47421, 28484, 26827 #### [facility] [address] [place] [address], [facility] Sodium [Moles/Vol] 137 mmol/L Normal 136-145 [facility] Comment on above: Order Comment: No: D o not add to previous draw Performed By: #### 3 1046, 97452, 69842, 15006 #### [facility] [address] [place] [address], [facility] Urea nitrogen [Mass/Vol] 21 mg/dL Normal 7-25 [facility] Comment on above: Order Comment: No: D o not add to previous draw Performed By: #### 3 1046, 67188, 82338, 89875 #### [facility] [address] CBC COMPLETE BLOOD COUNTon 0 - Erythrocyte distribution width (RBC) [Ratio] 14.3 % Normal 11.5-15.0 [facility] Comment on above: Order Comment: No: D o not add to previous draw Performed By: #### 3 1046, 89750, 26755, 94226 #### [facility] [address] [place] [address], [facility] Hematocrit (Bld) [Volume fraction] 48.1 % Normal 39.0-50.0 [facility] Comment on above: Order Comment: No: D o not add to previous draw Performed By: #### 3 1046, 22650, 28444, 33432 #### [facility] [address] [place] [address], [facility] Hemoglobin (Bld) [Mass/Vol] 15.1 g/dL Normal 13.0-17.0 [facility] Comment on above: Order Comment: No: D o not add to previous draw Performed By: #### 3 1046, 21297, 43218, 50628 #### [facility] [address] [place] [address], [facility] MCH (RBC) [Entitic mass] 28.9 pg Normal 27.0-33.0 [facility] Comment on above: Order Comment: No: D o not add to previous draw Performed By: #### 3 1046, 04747, 66909, 93354 #### [facility] [address] [place] [id number], [facility] MCHC (RBC) [Mass/Vol] 31.4 g/dL Low 32.0-35.0 [facility] Comment on above: Order Comment: No: D o not add to previous draw Performed By: #### 3 1046, 61474, 33010, 44406 #### [facility] [address] [facility] [place] [address], [facility] MCV (RBC) [Entitic vol] 92.1 fL Normal 82.0-98.0 [facility] Comment on above: Order Comment: No: D o not add to previous draw Performed By: #### 3 1046, 19416, 06541, 67218 #### [facility] [address] [facility] [place] [address], [facility] Nucleated RBC/100 WBC (Bld) [Ratio] 0 % Normal 0-0 [facility] Comment on above: Order Comment: No: D o not add to previous draw Performed By: #### 3 1046, 71087, 13092, 84611 #### [facility] [address] [facility] [place] [address], [facility] PLAT CNT 137 10*3/uL Low 150-400 [facility] Comment on above: Order Comment: No: D o not add to previous draw Performed By: #### 3 1046, 01703, 98571, 72959 #### [facility] [address] [place] [address], [facility] RBC (Bld) [#/Vol] 5.22 10*6/uL Normal 4.20-5.70 [facility] Comment on above: Order Comment: No: D o not add to previous draw Performed By: #### 3 1046, 17945, 10424, 21701 #### [facility] [address] [place] [address], [place] WBC (Bld) [#/Vol] 10.11 10*3/uL Normal 4.00-10.60 [facility] Comment on above: Order Comment: No: D o not add to previous draw Performed By: #### 3 1046, 15125, 69170, 64986 #### [facility] [address] [place] [address], [facility] Erythrocyte distribution width (RBC) [Ratio] 14.4 % Normal 11.5-15.0 [facility] Comment on above: Order Comment: No: D o not add to previous draw Performed By: #### 3 1046, 66783, 41623, 90958 #### [facility] [address] [place] [address], [place] Hematocrit (Bld) [Volume fraction] 45.3 % Normal 39.0-50.0 [facility] Comment on above: Order Comment: No: D o not add to previous draw Performed By: #### 3 1046, 49492, 44670, 12138 #### [facility] [address] [place] [address], [place] Hemoglobin (Bld) [Mass/Vol] 14.3 g/dL Normal 13.0-17.0 [facility] Comment on above: Order Comment: No: D o not add to previous draw Performed By: #### 3 1046, 25168, 89569, 70652 #### [facility] [address] [place] [address], [place] IMM PLATELET FRAC 3.3 % Normal 0.8-6.3 [facility] Comment on above: Order Comment: No: D o not add to previous draw Performed By: #### 3 1046, 34787, 07037, 63294 #### [facility] [address] [place] [address], [facility] MCH (RBC) [Entitic mass] 29.1 pg Normal 27.0-33.0 [facility] Comment on above: Order Comment: No: D o not add to previous draw Performed By: #### 3 1046, 95871, 18331, 81816 #### [facility] [address] [place] [address], [facility] MCHC (RBC) [Mass/Vol] 31.6 g/dL Low 32.0-35.0 [facility] Comment on above: Order Comment: No: D o not add to previous draw Performed By: #### 3 1046, 52917, 35610, 19986 #### [facility] [address] [facility]. [address] MCV (RBC) [Entitic vol] 92.1 fL Normal 82.0-98.0 [facility] Comment on above: Order Comment: No: D o not add to previous draw Performed By: #### 3 1046, 58677, 46163, 09547 #### [facility] [address] [facility] [place] [address], [facility] Nucleated RBC/100 WBC (Bld) [Ratio] 0 % Normal 0-0 [facility] Comment on above: Order Comment: No: D o not add to previous draw Performed By: #### 3 1046, 65211, 07958, 40337 #### [facility] [address] [facility] [place] [address], [facility] PLAT CNT 137 10*3/uL Low 150-400 [facility] Comment on above: Order Comment: No: D o not add to previous draw Performed By: #### 3 1046, 82269, 78432, 27605 #### [facility] [address] [facility] [place] [address], [place] RBC (Bld) [#/Vol] 4.92 10*6/uL Normal 4.20-5.70 [facility] Comment on above: Order Comment: No: D o not add to previous draw Performed By: #### 3 1046, 85614, 16163, 02222 #### [facility] [address] [place] [address], [facility] WBC (Bld) [#/Vol] 9.17 10*3/uL Normal 4.00-10.60 [facility] Comment on above: Order Comment: No: D o not add to previous draw Performed By: #### 3 1046, 61366, 01592, 52763 #### [facility] [address] Erythrocyte distribution width (RBC) [Ratio] 14.4 % Normal 11.5-15.0 [facility] Comment on above: Order Comment: No: D o not add to previous draw Performed By: #### 3 1046, 14901, 94691, 30992 #### [facility] [address] [place] [address], [facility] Hematocrit (Bld) [Volume fraction] 46.9 % Normal 39.0-50.0 [facility] Comment on above: Order Comment: No: D o not add to previous draw Performed By: #### 3 1046, 56005, 33005, 18415 #### [facility] [address] [place] [address], [facility] Hemoglobin (Bld) [Mass/Vol] 14.6 g/dL Normal 13.0-17.0 [facility] Comment on above: Order Comment: No: D o not add to previous draw Performed By: #### 3 1046, 84721, 03693, 31214 #### [facility] [address] [place] [address], [facility] MCH (RBC) [Entitic mass] 28.7 pg Normal 27.0-33.0 [facility] Comment on above: Order Comment: No: D o not add to previous draw Performed By: #### 3 1046, 69542, 91637, 09000 #### [facility] [address] [place] [address], [facility] MCHC (RBC) [Mass/Vol] 31.1 g/dL Low 32.0-35.0 [facility] Comment on above: Order Comment: No: D o not add to previous draw Performed By: #### 3 1046, 94383, 52939, 79967 #### [facility] [address] [place] [address], [facility] MCV (RBC) [Entitic vol] 92.3 fL Normal 82.0-98.0 [facility] Comment on above: Order Comment: No: D o not add to previous draw Performed By: #### 3 1046, 47417, 87010, 30319 #### [facility] [address] [facility] [address] Nucleated RBC/100 WBC (Bld) [Ratio] 0 % Normal 0-0 [facility] Comment on above: Order Comment: No: D o not add to previous draw Performed By: #### 3 1046, 62031, 65846, 77843 #### [facility] [address] [place] [address], [facility] PLAT CNT 149 10*3/uL Low 150-400 [facility] Comment on above: Order Comment: No: D o not add to previous draw Performed By: #### 3 1046, 60428, 19323, 64145 #### [facility] [address] [place] [address], [facility] RBC (Bld) [#/Vol] 5.08 10*6/uL Normal 4.20-5.70 [facility] Comment on above: Order Comment: No: D o not add to previous draw Performed By: #### 3 1046, 22092, 33054, 28060 #### [address] WBC (Bld) [#/Vol] 8.84 10*3/uL Normal 4.00-10.60 [facility] Comment on above: Order Comment: No: D o not add to previous draw Performed By: #### 3 1046, 20479, 24913, 07644 #### [facility] [address] CEAon 06-01-2019 CEA 0.6 ng/mL Normal 0.0-3.0 [facility] Comment on above: Order Comment: No: D o not add to previous draw Performed By: #### 3 1046, 05620, 56532, 30783 #### [facility] [address] [place], [place] [address] [place] [address] CT ABDOMEN AND PELVIS WO CON TRASTon 06-01-2019 CT ABDOMEN AND PELVIS WO CONTRAST [facility] Department of Radiology [address] [place], [place] [address] ======== Patient Name: SERGE SHINE : 1945 Sex: M Age: Race: White Pt. Location: [id number] Patient Status: I Ordered Date: 06/01/2019 7:25:00 [...] severe atherosclerotic calcification infrarenally and into the absentee-shawnee iliac arteries. There is a infrarenal abdominal [...] grafts and severe atherosclerotic calcification of the absentee-shawnee iliac arteries. 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 Approved by:Gui Coello on 06/01/2019 9:32 PM EDT. I, Lyndsey Rojas, have reviewed the images and report and concur with these findings. Electronically signed by:Lyndsey Rojas. Transcribed by: [email or web address], User Resident: GUI COELLO Electronically Signed by: LYNDSEY ROJAS @ 06/02/2019 12:31 PM I personally read this/these film(s) with this resident Normal [facility] Comment on above: Order Comment: R/O R etroperitoneal Mass/Abscess, r/o retroperitoneal bleed s/p tPA CT CHEST WO CONTRASTon 06-01 CT CHEST WO CONTRAST [facility] Department of Radiology [address] [place] [id number] ======== Patient Name: SERGE SHINE : 1945 Sex: M Age: Race: White Pt. Location: [id number] Patient Status: I Ordered Date: 06/01/2019 7:10:00 [...] findings. Electronically signed by:Franklin Molina. Transcribed by: [email or web address], User Resident: GUI COELLO Electronically Signed by: FRANKLIN MOLINA @ 06/02/2019 11:44 AM I personally read this/these film(s) with this resident Normal [facility] Comment on above: Order Comment: Other , r/o bleed post TPA FIBRINOGENon 06-01-2019 FIBRINOGEN 386 mg/dL Normal 150-425 [facility] Comment on above: Order Comment: No: D o not add to previous draw Performed By: #### 3 1046, 83843, 62066, 79378 #### [facility] [address] [place] [address], [place] MAGNESIUM BLOODon 06-01-2019 Magnesium [Mass/Vol] 2.1 mg/dL Normal 1.9-2.7 [facility] Comment on above: Order Comment: No: D o not add to previous draw Performed By: #### 3 1046, 70725, 12817, 23316 #### [facility] [address] [place] [address], [place] PHOSPHORUS BLOODon 9 Phosphate [Mass/Vol] 3.3 mg/dL Normal 2.5-5.0 [facility] Comment on above: Order Comment: No: D o not add to previous draw Performed By: #### 3 1046, 58787, 57738, 98147 #### [facility] [address] [place] [address], [place] POC GLUCOSE LABon 06-01-2019 Glucose [Mass/Vol] 207 mg/dL High 70-100 [facility] Comment on above: Performed By: #### 3 1046, 74369, 81316, 94964 #### [facility] [address] [place] [address], [place] Glucose [Mass/Vol] 207 mg/dL High 70-100 [facility] Comment on above: Performed By: #### 3 1046, 24521, 28827, 56217 #### [facility] [address] [facility]. [address] Glucose [Mass/Vol] 171 mg/dL High 70-100 [facility] Comment on above: Performed By: #### 3 1046, 74790, 43363, 12454 #### [facility] [address] [facility]. [address] PROTHROMBIN TIMEon 9 INR Coag (PPP) [Relative time] 1.20 {INR} High 0.91-1.16 [facility] Comment on above: Order Comment: No: [...] CHEST 1995;[id number]. Performed By: #### 3 1046, 33369, 95112, 88185 #### [facility] [address] [facility]. [address] PT Coag (PPP) [Time] 15.3 s High 12.3-14.8 [facility] Comment on above: Order Comment: No: D o not add to previous draw Result Comment: ALL RESULTS MUST BE INTERPRETED WITH RESPECT TO BLOOD DRAWING ARTIFACT OR DILUTION ERROR OF ANTICOAGULANT AT THE TIME OF SAMPLING. Performed By: #### 3 1046, 28855, 82528, 44884 #### [facility] [address] TROPONIN-Ion 06-01-2019 Troponin I.cardiac [Mass/Vol] 0.22 ng/mL Critically high 0.00-0.04 [facility] Comment on above: Order Comment: No: D o not add to previous draw Result Comment: M-AK EVIOUS CRITICAL RESULT REFERENCE RANGES: 0.00 - 0.04 ng/ml NORMAL 0.05 - 0.50 ng/ml INDETERMINATE > 0.50 ng/ml CONSISTENT WITH AN M.I. Performed By: #### 3 1046, 76652, 89630, 31887 #### [facility] [address] TYPE AND SCREENon 06-01-2019 ABO INTERPRETATION O Normal [facility] Comment on above: Performed By: #### 3 1046, 52014, 09482, 09981 #### [facility] [address] [facility] [place] [address], [facility] RH INTERPRETATION Positive Normal [facility] Comment on above: Performed By: #### 3 1046, 14264, 80570, 87336 #### [facility] [address] UFH HEPARIN ASSAYon 06-01-20 19 UNFRACTIONATED HEPARIN <0.10 Critically low 0.30-0.70 [facility] Comment on above: Result Comment: Rosanne roxaban and Apixaban will interfere with the anti Xa assay used to monitor UFH and LMWH. RESULTS CHECKED AND CALLED. ACCURATELY READ BACK BY TAYE MEYERS RN @ 7863 Performed By: #### 3 1046, 56216, 95504, 46451 #### [facility] [address] UNFRACTIONATED HEPARIN <0.10 Critically low 0.30-0.70 [facility] Comment on above: Order Comment: No: D o not add to previous draw Result Comment: Mclean roxaban and Apixaban will interfere with the anti Xa assay used to monitor UFH and LMWH. RESULTS CHECKED AND CALLED. ACCURATELY READ BACK BY LISA VALENTE RN @ 1704 Performed By: #### 3 1046, 57075, 77138, 75757 #### [facility] [address] UNFRACTIONATED HEPARIN 0.20 IU/mL Low 0.30-0.70 [facility] Comment on above: Result Comment: Mclean roxaban and Apixaban will interfere with the anti Xa assay used to monitor UFH and LMWH. Performed By: #### 3 1046, 15864, 02481, 56600 #### [facility] [address] APTTon 05-31-2019 aPTT Coag (Bld) [Time] 65.5 s High 25.0-35.0 [facility] Comment on above: Result Comment: ALL RESULTS [...] THIS PURPOSE. Performed By: #### 5 3629, 27656, 04403, 53173 #### [facility] [address] BASIC METABOLIC PANELon 05-15 Calcium [Mass/Vol] 9.3 mg/dL Normal 8.6-10.3 [facility] Comment on above: Order Comment: No: D o not add to previous draw Performed By: #### 3 1046, 36731, 06008, 49386 #### [facility] [address] [place] [address], [facility] Chloride [Moles/Vol] 104 mmol/L Normal 98-107 [facility] Comment on above: Order Comment: No: D o not add to previous draw Performed By: #### 3 1046, 58752, 34075, 23474 #### [facility] [address] [place] [address], [place] CO2 [Moles/Vol] 21 mmol/L Normal 21-31 [facility] Comment on above: Order Comment: No: D o not add to previous draw Performed By: #### 3 1046, 93746, 36552, 35641 #### [facility] [address] [place] [address], [facility] Creatinine [Mass/Vol] 1.29 mg/dL Normal 0.70-1.30 [facility] Comment on above: Order Comment: No: D o not add to previous draw Performed By: #### 3 1046, 71329, 80434, 73972 #### [facility] [address] [place] [address], [facility] GFR/1.73 sq M predicted among blacks MDRD (S/P/Bld) [Vol rate/Area] mL/min/{1.73_m2} Normal >60 [facility] Comment on above: Order Comment: No: D o not add to previous draw Result Comment: Calc ulation may not be valid for patients over 70 years Performed By: #### 3 1046, 15827, 35736, 82720 #### [facility] [address] [place] [address], [facility] GFR/1.73 sq M predicted among non-blacks MDRD (S/P/Bld) [Vol rate/Area] 55 ml/min/1.73sq m Abnormal >60 [facility] Comment on above: Order Comment: No: D o not add to previous draw Result Comment: Calc ulation may not be valid for patients over 70 years Performed By: #### 3 1046, 63133, 99221, 84316 #### [facility] [address] [place] [address], [facility] Glucose [Mass/Vol] 173 mg/dL High 70-100 [facility] Comment on above: Order Comment: No: D o not add to previous draw Performed By: #### 3 1046, 04982, 64797, 67473 #### [facility] [address] [place] [address], [facility] Potassium [Moles/Vol] 4.6 mmol/L Normal 3.5-5.1 [facility] Comment on above: Order Comment: No: D o not add to previous draw Performed By: #### 3 1046, 20990, 81736, 01429 #### [facility] [address] [place] [address], [facility] Sodium [Moles/Vol] 136 mmol/L Normal 136-145 [facility] Comment on above: Order Comment: No: D o not add to previous draw Performed By: #### 3 1046, 75366, 35368, 69658 #### [facility] [address] [place] [address], [facility] Urea nitrogen [Mass/Vol] 24 mg/dL Normal 7-25 [facility] Comment on above: Order Comment: No: D o not add to previous draw Performed By: #### 3 1046, 05909, 00683, 84446 #### [facility] [address] [place] [id number], [facility] BNP (B-TYPE NATRIURETIC PEPT KAMRAN)on 05-31-2019 Natriuretic peptide B (Bld) [Mass/Vol] 430 pg/mL High 0-100 [facility] Comment on above: Order Comment: Yes: Add to Previous draw if able Result Comment: Give n the appropriate clinical setting a BNP result of >100 pg/mL indicates congestive heart failure. Performed By: #### 3 1046, 39258, 49571, 16227 #### [facility] [address] [place] [address], [facility] CARDIAC MAGNESIUM BLOODon Magnesium [Mass/Vol] 2.2 mg/dL Normal 1.9-2.7 [facility] Comment on above: Performed By: #### 3 1046, 88282, 78952, 59274 #### [facility] [address] CBC COMPLETE BLOOD COUNTon 0 05-31-2019 Erythrocyte distribution width (RBC) [Ratio] 14.3 % Normal 11.5-15.0 [facility] Comment on above: Order Comment: No: D o not add to previous draw Performed By: #### 5 0608 #### [facility] [address] [facility] [address] Hematocrit (Bld) [Volume fraction] 47.4 % Normal 39.0-50.0 [facility] Comment on above: Order Comment: No: D o not add to previous draw Performed By: #### 5 0608 #### [facility] [address] Hemoglobin (Bld) [Mass/Vol] 15.3 g/dL Normal 13.0-17.0 [facility] Comment on above: Order Comment: No: D o not add to previous draw Performed By: #### 5 0608 #### [facility] [address] [facility] [place] [address], [facility] MCH (RBC) [Entitic mass] 29.0 pg Normal 27.0-33.0 [facility] Comment on above: Order Comment: No: D o not add to previous draw Performed By: #### 5 0608 #### [facility] [address] [facility] [place] [address], [facility] MCHC (RBC) [Mass/Vol] 32.3 g/dL Normal 32.0-35.0 [facility] Comment on above: Order Comment: No: D o not add to previous draw Performed By: #### 5 0608 #### [facility] [address] [place] [address], [facility] MCV (RBC) [Entitic vol] 89.8 fL Normal 82.0-98.0 [facility] Comment on above: Order Comment: No: D o not add to previous draw Performed By: #### 5 0608 #### [facility] [address] [place] [address], [facility] Nucleated RBC/100 WBC (Bld) [Ratio] 0 % Normal 0-0 [facility] Comment on above: Order Comment: No: D o not add to previous draw Performed By: #### 5 0608 #### [facility] [address] [place] [address], [facility] PLAT CNT 150 10*3/uL Normal 150-400 [facility] Comment on above: Order Comment: No: D o not add to previous draw Performed By: #### 5 0608 #### [address] RBC (Bld) [#/Vol] 5.28 10*6/uL Normal 4.20-5.70 [facility] Comment on above: Order Comment: No: D o not add to previous draw Performed By: #### 5 0608 #### [facility] [address] [place] [address], [facility] WBC (Bld) [#/Vol] 10.80 10*3/uL High 4.00-10.60 [facility] Comment on above: Order Comment: No: D o not add to previous draw Performed By: #### 5 0608 #### [facility] [address] D DIMER TESTon 05-31-2019 D-DIMER TEST 10.95 mcg/mL FEU High 0.01-0.49 [facility] Comment on above: Order Comment: [...] AND CONFIRMED Performed By: #### 5 3629, 42739, [id number], [id number] #### [facility] [address] LACTATE BLOODon 05-31-2019 Lactate [Moles/Vol] 1.6 mmol/L Normal 0.5-2.2 [facility] Comment on above: Order Comment: Yes: Add to Previous draw if able Performed By: #### 1 0054 #### [facility] [address] PHOSPHORUS BLOODon 9 Phosphate [Mass/Vol] 4.3 mg/dL Normal 2.5-5.0 The [facility] Comment on above: Order Comment: No: D o not add to previous draw Performed By: #### 3 1046, 45508, 62395, 36594 #### [facility] [address] PROTHROMBIN TIMEon 9 INR Coag (PPP) [Relative time] 1.23 {INR} High 0.91-1.16 [facility] Comment on above: Order Comment: No: D [...] CHEST 1995;108:231S-246S. Performed By: #### 5 3629, 62935, 35436, 84471 #### [facility] [address] PT Coag (PPP) [Time] 15.6 s High 12.3-14.8 [facility] Comment on above: Order Comment: No: D o not add to previous draw Result Comment: ALL RESULTS MUST BE INTERPRETED WITH RESPECT TO BLOOD DRAWING ARTIFACT OR DILUTION ERROR OF ANTICOAGULANT AT THE TIME OF SAMPLING. Performed By: #### 5 3629, 93615, 36775, 57275 #### [facility] [address] TROPONIN-Ion 05-31-2019 Troponin I.cardiac [Mass/Vol] 0.14 ng/mL Critically high 0.00-0.04 [facility] Comment on above: Result Comment: M-CR ITICAL RESULT(S) REVIEWED, CALLED TO AND READ BACK BY TAYE MEYERS RN @0000 ON 06-01-19 M-TROPONIN INITIAL CRITICAL HIGH; RESPUN AND RETESTED REFERENCE RANGES: 0.00 - 0.04 ng/ml NORMAL 0.05 - 0.50 ng/ml INDETERMINATE > 0.50 ng/ml CONSISTENT WITH AN M.I. Performed By: #### 3 1046, 43255, 14260, 53404 #### [facility] [address] [place] [address], [facility] UFH HEPARIN ASSAYon 05-31-20 19 UNFRACTIONATED HEPARIN 0.28 IU/mL Low 0.30-0.70 [facility] Comment on above: Result Comment: Rosanne roxaban and Apixaban will interfere with the anti Xa assay used to monitor UFH and LMWH. Performed By: #### 5 3629, 69321, 63043, 88617 #### [facility] [address] Vital Signs Date Time Vital Sign Value Performing Clinician Facility 12-03-2023 09:08-0400 Body height 182.9 cm [facility] 1 [facility] 12-03-2023 09:08-0400 Body mass index (BMI) [Ratio] 31.06 kg/m2 [facility] 1 [facility] 12-03-2023 09:08-0400 Body weight 103.87 kg P[facility] 1 [facility] 10-21-2023 08:24-0500 Body height 182.9 cm Jr. Stepanic DO Work Phone: [facility] 10-21-2023 08:24-0500 Body mass index (BMI) [Ratio] 32.82 kg/m2 Jr. Stepanic DO Work Phone: [facility] 10-21-2023 08:24-0500 Body weight 109.77 kg Jr. Stepanic DO Work Phone: [facility] 10-16-2023 10:29-0500 Body height 182.9 cm Benedict Vallecillo MD Work Phone: [facility] 10-16-2023 10:29-0500 Body mass index (BMI) [Ratio] 33.36 kg/m2 Benedict Vallecillo MD Work Phone: [facility] 10-16-2023 10:29-0500 Body temperature 97.11 [degF] Benedict Vallecillo MD Work Phone: [facility] 10-16-2023 10:29-0500 Body weight 111.58 kg Benedict Vallecillo MD Work Phone: [facility] 10-16-2023 10:29-0500 Diastolic blood pressure 70 mm[Hg] Benedict Vallecillo MD Work Phone: [facility] 10-16-2023 10:29-0500 Heart rate 91 /min Benedict Vallecillo MD Work Phone: [facility] 10-16-2023 10:29-0500 SaO2% (BldA) [Mass fraction] 97 % Benedict Vallecillo MD Work Phone: [facility] 10-16-2023 10:050 Systolic blood pressure 150 mm[Hg] Benedict Vallecillo MD Work Phone: [facility] Encounters Encounter Date Encounter Type Care Provider Facility Start: 02-10-2024 End: 02-10-2024 ambulatory [facility] Start: 02-09-2024 End: 02-09-2024 ambulatory BERNICE AVILA Not Available Start: 02-09-2024 End: 02-09-2024 ambulatory GISELLEKathy REECE Not Available Start: 02-04-2024 End: 02-04-2024 ambulatory ESTEPHANIE PRESSLEY Not Available Start: 02-01-2024 End: 02-01-2024 ambulatory GISELLE CHEVY Not Available Start: 01-28-2024 End: 01-28-2024 ambulatory ESTEPHANIE WYATTKATHARINA Not Available Start: 01-25-2024 End: 01-25-2024 ambulatory GISELLE REECE Not Available Start: 01-21-2024 End: 01-21-2024 ambulatory ESTEPHANIE PRESSLEY Not Available Start: 01-18-2024 End: 01-18-2024 ambulatory VIJAY WELCH Not Available Start: 01-11-2024 End: 01-11-2024 ambulatory BERNICE AVILA Not Available Start: 12-29-2023 End: 12-29-2023 ambulatory [facility] Start: 12-22-2023 End: 12-24-2023 ambulatory [facility] Start: 12-11-2023 End: 12-11-2023 ambulatory BENEDICT VALLECILLO Not Available Start: 12-09-2023 End: 12-09-2023 ambulatory GAL BAUTISTA Not Available Start: 12-03-2023 End: 12-04-2023 ambulatory [facility] Start: 12-03-2023 Encounter for other preprocedural examination [facility] Start: 12-03-2023 End: 12-03-2023 Patient encounter procedure [facility] Pre-Admission Testing [facility] - Pre Admit Comment on above: Preop examination (P rimary Dx); Hypertension, unspecified type; Atrial fibrillation, unspecified type (CMS-HCC); Type 2 diabetes mellitus without complication, unspecified whether half-way insulin use ([facility]-HCC); Former smoker; Osteoarthritis of left knee, unspecified osteoarthritis type; Urinary frequency Start: 12-03-2023 End: 12-03-2023 Preprocedural examination done Pm 1 [facility] Start: 11-30-2023 End: 11-30-2023 ambulatory BERNICE AVILA Not Available Start: 10-21-2023 Chart abstracting Jr. Willie Woods DO Work Phone: [facility] Start: 10-21-2023 End: 10-21-2023 Office outpatient visit 25 minutes Jr. Willie Woods DO Work Phone: [facility] Comment on above: Acute pain of left k nee Start: 10-21-2023 End: 10-21-2023 ambulatory WILLIE GARCIA Not Available Start: 10-16-2023 Bamboo flowsheet Benedict Vallecillo MD Work Phone: [facility] Start: 10-16-2023 Bamboo flowsheet Benedict Vallecillo MD Work Phone: [facility] Start: 10-16-2023 Clinisync Result Encounter Benedict Vallecillo MD Work Phone: [facility] Unsolicited Start: 10-16-2023 End: 10-16-2023 Office outpatient visit 25 minutes Benedict Vallecillo MD Work Phone: [facility] Comment on above: Preop examination (P rimary Dx); Primary osteoarthritis of left knee; Type 2 diabetes mellitus with hyperglycemia, without long-term current use of insulin (CMS/HCC); Benign essential hypertension (CMS/HCC); Coronary artery disease involving absentee-shawnee coronary artery of absentee-shawnee heart without angina pectoris ([facility]/HCC) Start: 10-16-2023 End: 10-16-2023 Preprocedural examination done Benedict Vallecillo MD Work Phone: [facility] Work Phone: Start: 10-16-2023 End: 10-16-2023 ambulatory BENEDICT VALLECILLO Not Available Start: 10-07-2023 End: 10-07-2023 ambulatory ANH POPE Not Available Start: 08-05-2023 End: 08-05-2023 ambulatory [facility] Start: 08-05-2023 End: 08-05-2023 Encounter for other preprocedural examination [facility] Start: 08-05-2023 End: 08-05-2023 Encounter for preprocedural cardiovascular examination [facility] Start: 11-13-2022 End: 11-14-[address] BENEDICT VALLECILLO Facility:[facility]1 Start: 05-15-2022 End: 05-16-[address] BENEDICT VALLECILLO Facility:[facility] Start: 05-31-2019 End: 06-06-2019 Evaluation and management of inpatient PROVIDER UNKNOWN Facility:[facility] Procedures Date Procedure Procedure Detail Performing Clinician Start: 10-21-2023 Radiologic examinati on knee 1/2 views JrTim Woods DO Work Phone: Start: 10-16-2023 MLR HEMOGLOBIN A1C Benedict Vallecillo MD Work Phone: Start: 11-13-[address] BENEDICT PEÑA Comment on above: Performed By: #### P [facility] #### [facility] [address] [place] [address] Dr. Demetris Allred Start: 06-02-2019 DILATION OF 1 COR AR T WITH DRUG-ELUT INTRA, PERC APPROACH WILLIE DEL CID Start: 06-02-2019 FLUOROSCOPY OF MULTI PLE CORONARY ARTERIES USING OTH CONTRAST WILLIE DEL CID Start: 06-01-2019 [object Object] PROVIDE R UNKNOWN Comment on above: Order Comment: No: D o not add to previous draw Performed By: #### 3 1046, 36264, 48394, 50123 #### [facility] [address] Start: 06-01-2019 INTRODUCE OTH THROMB OLYTIC IN CENTRAL ART, PERC WILLIE Lauren MARIA EUGENIA Start: 06-01-2019 MEASURE OF CARDIAC S AMPL \T\ PRESSURE, R HEART, PERC APPROACH WILLIE DEL CID Start: 06-01-2019 Antibody screen PROVIDE R UNKNOWN Comment on above: Performed By: #### 3 1046, 83393, 46660, 50088 #### [facility] [address] 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 WILLIE DEL CID Plan of Treatment Date Care Activity Detail Author Start: 12-02-2024 Adult BMI Screening Adult BMI Screen ing [facility] Start: 12-02-2024 Tobacco Screening Tobacco Screening [facility] Start: 07-14-2024 Medicare Annual Well ness (AWV) Medicare Annual Wellness (AWV) [facility] Start: 01-13-2024 End: 01-13-2024 Patient encounter procedure 01/13/2024 9:00 AM EDT Office Visit [facility] [address] [place] [address] Benedict Vallecillo MD [address] [place] [address] [facility] Start: 12-29-2023 End: 12-29-2023 Admission to same day surgery center 12/29/2023 7:45 AM EDT - 12/29/2023 11:[address] [facility] [address] [place] [address] Willie Woods Jr., DO [address] [facility] [address] [place] [address] REPLACEMENT TOTAL JOINT KNEE [22226 (CPT )] [facility] Comment on above: REPLACEMENT TOTAL KAREY INT KNEE [64276 (CPT )] Start: 12-29-2023 End: 04-16-2024 Arthrp kne condyle&platu medial&lat compartments REPLACEMENT TOTAL JOINT KNEE left knee degenerative joint disease 12/29/2023 7:45 AM EDT [facility] Start: 12-29-2023 Subsequent hospital visit by physician 12/29/2023 7:45 AM EDT Hospital Encounter [facility] [address] [place] [address] Willie Woods Jr., DO [address] [facility] [address] [place] [address] [facility] Start: 12-21-2023 End: 11-26-2024 Crossmatch RBC Crossmatch RBC Blood Bank Routine Preop examination Hypertension, unspecified type Atrial fibrillation, unspecified type (CMS-HCC) Type 2 diabetes mellitus without complication, unspecified whether half-way insulin use (CMS-HCC) Former smoker Osteoarthritis of left knee, unspecified osteoarthritis type Urinary frequency Expected: 12/21/2023, Expires: 11/26/2024 Stockr Comment on above: Expected: 12/21/2023 , Expires: 11/26/2024 Start: 12-21-2023 End: 11-26-2024 Type and screen(includes indirect olivia) Type and screen(includes indirect olivia) Blood Bank Routine Preop examination Hypertension, unspecified type Atrial fibrillation, unspecified type (CMS-HCC) Type 2 diabetes mellitus without complication, unspecified whether half-way insulin use (CMS-HCC) Former smoker Osteoarthritis of left knee, unspecified osteoarthritis type Urinary frequency Expected: 12/21/2023, Expires: 11/26/2024 Stockr Comment on above: Expected: 12/21/2023 , Expires: 11/26/2024 Start: 12-03-2023 End: 11-26-2024 ECG 12 lead ECG 12 lead ECG Routine Preop examination Hypertension, unspecified type Atrial fibrillation, unspecified type (CMS-HCC) Type 2 diabetes mellitus without complication, unspecified whether half-way insulin use (CMS-HCC) Former smoker Osteoarthritis of left knee, unspecified osteoarthritis type Urinary frequency Expected: 12/03/2023, Expires: 11/26/2024 Stockr Comment on above: Expected: 12/03/2023 , Expires: 11/26/2024 Start: 12-03-2023 End: 11-26-2024 XR Femur and Tibia Views for leg length [facility] Work Phone: Comment on above: Expected: 12/03/2023 , Expires: 11/26/2024 Start: 11-14-2023 Urine screening for protein Diabetes: Urine Protein Screening [facility] Start: 10-21-2023 End: 10-21-2023 Patient encounter procedure 10/21/2023 8:30 AM EST Office Visit [facility] [address] [place] [id number] Jr. Willie Woods, DO [address] [place] [address] [place], [place] [id number] [facility] Start: 10-16-2023 End: 10-16-2024 Hemoglobin A1c measurement Hemoglobin A1c Lab Routine Type 2 diabetes mellitus with hyperglycemia, without long-term current use of insulin ([facility]) Expected: 10/16/2023 (Approximate), Expires: 10/16/2024 [facility] Work Phone: Comment on above: Expected: 10/16/2023 (Approximate), Expires: 10/16/2024 Start: 10-16-2023 End: 10-16-2023 Patient encounter procedure 10/16/2023 10:30 AM EST Consult [facility] [address] [place] [address] Benedict Vallecillo MD [address] [place] [address] Arrived [facility] Comment on above: Arrived Start: 02-03-2020 Pneumococcal Vaccine : 65+ Years (2 - PCV) Pneumococcal Vaccine: 65+ Years (2 - PCV) [facility] Start: 2011 Fall Risk Screening Fall Risk Screen ing [facility] Start: 1996 Administration of varicella zoster vaccine Zoster (Shingles) Vaccine (1 of 2) [facility] Start: 1965 DTaP,Tdap and Td Vaccines (1 - Tdap) DTaP,Tdap and Td Vaccines (1 - Tdap) [facility] Start: 1965 Urine screening for protein Diabetes: Urine Protein Screening [facility] Start: 1964 Adult BMI Follow Up Plan Adult BMI Follow Up Plan [facility] Start: 1958 Depression Screening Depression Scre ening [facility] Start: 1956 Glaucoma screening Diabetes: R etinopathy Screening [facility] Start: 1946 Hemoglobin A1c measurement Diabetes: Hemoglobin A1C [facility] Start: 1946 Medicare Annual Well ness Visit Medicare Annual Wellness Visit [facility] Immunizations Immunization Date Immunization Notes Care Provider Fa cili 07-22-2022 Influenza, High-dose Seasonal, Quadrivalent, Preservative Free Benedict Vallecillo MD Work Phone: [facility] 07-22-2022 Moderna Bivalent [place] Vaccination Benedict Vallecillo MD Work Phone: [facility] 11-24-2020 COVID-19, mRNA, LNP- S, PF, 30mcg/0.3mL Dose Pmh 1 [facility] 11-03-2020 COVID-19, mRNA, LNP- S, PF, 30mcg/0.3mL Dose Pmh 1 [facility] 02-02-2019 pneumococcal polysaccharide vaccine, 23 valent Benedict Vallecillo MD Work Phone: [facility] Payers Date Payer Category Payer Unknown [id number] 2018 Private Health Insurance [facility] AAR SUPPLEMENT [id number] 2018-Present [phone] [address] [place] [address] [id number] .[id number] 2013 Unknown [id number] 1.13.693.2 .[id number] 2011 Medicare [id number] 1.13.693.2 .7.3.204810.315 1959 Medicare [id number] 1959 Unknown [id number] 1959 Unknown [id number] 1946 Unknown [id number] 2.16.840.1.541232.3.579.2 .647 1946 Unknown [id number] 2.16.840.1.943288.3.579.2 .593 1946 Unknown [id number] 2.16.840.1.173760.3.579.2 .593 1946 Unknown [id number] 2.16.840.1.364217.3.579.2 .1286 1946 Unknown [id number] 2.16.840.1.041609.3.579.2 .128 1946 Unknown [id number] 2.16.840.1.268770.3.579.2 .128 1946 Unknown [id number] 2.16.840.1.581150.3.579.2 .1286 1946 Unknown [id number] 2.16.840.1.735132.3.579.2 .1286 1946 Unknown [id number] 2.16.840.1.601384.3.579.2 .1286 1946 Unknown [id number] 2.16.840.1.028303.3.579.2 .1286 1946 Unknown [id number] 2.16.840.1.441631.3.579.2 .1286 1946 Unknown [id number] 2.16.840.1.794898.3.579.2 .1259 1946 Unknown [id number] 2.16.840.1.500639.3.579.2 .1259 1946 Unknown [id number] 2.16.840.1.426926.3.579.2 .125 1946 Unknown [id number] 2.16.840.1.255263.3.579.2 .1258 1946 Unknown [id number] 2.16.840.1.178784.3.579.2 .1258 1946 Unknown [id number] 2.16.840.1.735490.3.579.2 .1258 1946 Unknown [id number] 2.16.840.1.692383.3.579.2 .1258 1946 Unknown [id number] 2.16.840.1.430650.3.579.2 .1258 1946 Unknown [id number] 2.16.840.1.841647.3.579.2 .1258 1946 Unknown [id number] 2.16840.1.385940.3.579.2 .1258 1946 Unknown [id number] 2.16840.1.238344.3.579.2 .1258 1946 Unknown [id number] 2.16840.1.565348.3.579.2 .1258 1946 Unknown [id number] 2.16.840.1.807490.3.579.2 .1258 1946 Unknown [id number] 2.16840.1.887135.3.579.2 .1258 1946 Unknown [id number] 2.16840.1.955322.3.579.2 .1258 1946 Unknown [id number] 2.16840.1.252458.3.579.2 .1258 1946 Unknown [id number] 2.16840.1.028237.3.579.2 .1259 Social History Date Type Detail Facility Start: 04-22-2023 End: 12-03-2023 Tobacco smoking status [facility] Ex-smoker [facility] End: 09-14-1994 History of tobacco use Current smoker [facility] End: 09-14-1994 History of tobacco use [...] to any clubs or organizations such as religious groups, unions, fraternal or athletic groups, or [...] Start: 1945 Sex Assigned At Male [facility] Start: 03-02-2023 Gender identity Identifies as male gender (finding) [facility] Start: 03-02-2023 Sexual orientation Heterosexual (fin ding) [facility] Start: 10-16-2023 End: 12-03-2023 Tobacco use and exposure Smokeless tobacco non-user [facility] Clinical Notes 11-06-2020 to 02-10-2024 Patient InstructionsJr. Willie Woods DO - 10/21/2023 8:30 AM Queenie Vallecillo MD - 10/16/2023 12:23 PM Queenie Vallecillo MD - 10/16/2023 12:23 PM Queenie Vallecillo MD - 10/16/2023 12:23 PM EST Note Date & Type Note Facility 02-10-2024 Note [facility] Subjective Serge Shine is a 78 y.o. year old male patient being seen for 6 mo follow up CAD, hyperlipidemia, chronic PE, and hx of cardiac arrest. He had routine labs with lipid panel in November 2023. Had TKA last month and did very well. He denies chest pain, SOB, palpitations, lightheadedness/syncope, and bleeding on Eliquis. Patient Active Problem List Diagnosis Coronary artery disease involving absentee-shawnee coronary artery of absentee-shawnee heart without angina pectoris Presence of drug coated stent in right coronary artery Mixed hyperlipidemia Chronic pulmonary embolism without acute cor pulmonale (CMS/HCC) Heart block Osteoarthritis of knee Primary osteoarthritis Pre-operative cardiovascular examination Benign essential hypertension BPPV (benign paroxysmal positional vertigo) Gouty arthritis Left knee pain Nonalcoholic fatty liver Obesity (BMI 30-39.9) Preop examination Presence of artificial knee joint, right PVD (peripheral vascular disease) (CMS/HCC) Type 2 diabetes mellitus with hyperglycemia, without long-term current use of insulin (CMS/HCC) Family History Problem Relation Name Age of Onset No Known Problems Mother No Known Problems Father Social History Tobacco Use Smoking status: Former Packs/day: 1 Types: Cigarettes Quit date: 08/1995 Years since quittin.5 Smokeless tobacco: Never HPI Serge is seen in follow-up. He is a 78-year-old man, who was admitted in [address] [facility] after an episode of cardiopulmonary arrest. He was found to have bilateral pulmonary embolism, and underwent catheter directed lysis for pulmonary embolism. He sustained an episode of cardiac arrest and he was resuscitated briefly and recovered quickly. His monitor showed evidence of high-grade AV block and AV dissociation. He then underwent cardiac catheterization on 06/02/2019: 1. Severe single-vessel coronary artery disease. 2. 80% eccentric and hazy stenosis in the mid RCA reduced to 0% by a Synergy drug-eluting stent. 3. 40% proximal and 40% to 50% mid LAD stenosis with mild disease in the diagonal branch. 4. Mild disease in a nondominant circumflex and mild disease in a ramus vessel. He was later evaluated by Hem/Onc and he was cleared from underlying cancer. In December 2020 he was evaluated in the emergency room at [facility] because of vertigo. CT scan did not show any evidence of acute process. His blood testing was negative. He underwent knee replacement surgery in December 2023 with no issues. Today he is seen in follow-up. He has been pain and no shortness of breath. He has mild left lower extremity edema (post knee surgery). No syncope, no lightheadedness, no palpitations. He has no claudication. He has had no bleeding issues with aspirin and Eliquis combination. Review of Systems Cardiovascular: Positive for leg swelling. Skin: Positive for color change. Musculoskeletal: Positive for arthritis and joint pain. All other systems reviewed and are negative. Objective Visit Vitals BP 130/66 (BP Location: Right arm, Patient Position: Sitting) Pulse 95 Ht 1.829 m (6') Wt 101 kg (222 lb) SpO2 97% BMI 30.11 kg/m??? Smoking Status Former BSA 2.27 m??? Physical Exam Constitutional: Appearance: He is well-developed. He is not ill-appearing. HENT: Head: Normocephalic and atraumatic. Nose: Nose normal. Eyes: General: No scleral icterus. Pupils: Pupils are equal, round, and reactive to light. Neck: Thyroid: No thyromegaly. Vascular: No JVD. Cardiovascular: Rate and Rhythm: Normal rate and regular rhythm. Pulses: Radial pulses are 2+ on the right side and 2+ on the left side. Heart sounds: Normal heart sounds. No murmur heard. No friction rub. No gallop. Pulmonary: Effort: Pulmonary effort is normal. No respiratory distress. Breath sounds: Normal breath sounds. No wheezing or rales. Chest: Chest wall: No tenderness. Abdominal: General: Bowel sounds are normal. There is no distension. Palpations: Abdomen is soft. Tenderness: There is no abdominal tenderness. Musculoskeletal: General: No swelling. Cervical back: Neck supple. Left lower le+ Edema present. Skin: General: Skin is warm and dry. Neurological: General: No focal deficit present. Mental Status: He is alert and oriented to person, place, and time. Psychiatric: Mood and Affect: Mood normal. Behavior: Behavior is cooperative. Judgment: Judgment normal. Allergies No Known Allergies Medications Current Outpatient Medications: apixaban (Eliquis) 5 mg tablet, Take 5 mg by mouth twice a day., Disp: , Rfl: atorvastatin (Lipitor) 40 mg tablet, Take 40 mg by mouth in the morning., Disp: , Rfl: empagliflozin (Jardiance) 25 mg, 1 (one) time each day at the same time., Disp: , Rfl: glipiZIDE (Glucotrol) 10 mg tablet, Take 10 mg by mouth in the morning., Disp: , Rfl: lisinopril 20 mg tablet, lisinop (more content not included)... [facility] 12-07-2023 Note XR BONE LENGTH STUDY Bone [...] Bud Alvarez MD on 12/07/2023 8:33 AM [facility] 12-03-2023 Instructions Monae Cartwright RN - 12/03/2023 [...] at the main lobby of the [facility]- registration desk is straight ahead as soon as you walk in. Tell them you are here for surgery. 2. If you have a Living Will/Durable Power of Brick Pointer for Health Care that is not on [...] after you have bathed. 5. NO nail occitan/acrylic on at least one finger. If you are having a hand, wrist or foot surgery then all nail occitan and artificial/acrylic nails must be removed from [...] please call the Preadmission Testing office at [phone], Mon.-Fri. 7 a.m.-3 p.m. Leave a voicemail [...] Stop taking 0 days prior to procedure xfffxqoj-ycnc-SO-calcium &mins (THERAGRAN-M) 9 mg iron-400 mcg tablet [...] with your doctor. documented in this encounter [facility] 10-21-2023 History of Present illness Narrative Images from the original note were not included. HISTORY OF PRESENT ILLNESS: EST PT Serge Shine is an 78 y.o. @ male. (EST PT; MOST RECENT VISIT WITH ANH) RECHECK LT KNEE PAIN-HERE TO DISCUSS POSSIBLE SURGERY- REPEAT XRAY TODAY LAST TX BY DR WOODS 07/22/23, LT TKA WAS DISCUSSED PT WAS CLEARED BY [facility] [employer]PLIANCE TESTER ([employer] CONSULTANT) 07/2023 PER PT CLEARED BY ALISE DENTIST [...] PT IS ON ELIQUIS; A-FIB HX PE ~2017 ALLERGIES: No Known Allergies HOME MEDICATIONS: Current [...] pending cardiac clearance and dental clearance from [facility]. Patient requests outpatient surgery at [facility] Questions answered in laymen terms at the bedside. The diagnosis, home exercise plan and any ongoing restrictions/ recommendations reviewed. If unable to be reached in office, I recommend evaluation at nearest Emergency Room if any symptoms worsened or new symptoms develop for requiring urgent evaluation. BIJU Pugh documented in this encounter [facility] 10-16-2023 History of Present illness Narrative Associated Problem(s): Benign essential hypertension (CMS/HCC) BP typically controlled and monitor PRN. Associated Problem(s): Coronary artery disease involving absentee-shawnee coronary artery of absentee-shawnee heart without angina pectoris (CMS/HCC) No pain [...] Addressed This Visit Coronary artery disease involving absentee-shawnee coronary artery of absentee-shawnee heart without angina pectoris (CMS/HCC) No pain [...] Recommend routine PAT. documented in this encounter [facility] 08-05-2023 Note Planning for Lt TKA [facility] 08-05-2023 Note RCRI= 1???points Cla ss II Risk 6.0???% 30-day risk of , PA, or cardiac arrest From a cardiology perspective pt may proceed with planned Lt TKA, he is a low to moderate risk for moderate risk surgery, he may hold eliquis 2-3 days prior to surgery. Please resume all meds post op and monitor hemodynamics carefully and prevent any major fluid shifts. [facility] 08-05-2023 Note UTP CARDIOLOGY PROGR ESS NOTE HPI: Serge Shine is a 78 y.o. male here for routine F/U for CAD s/p NELIA, HPL, H/O PE, cardiac arrest 2018, Patient here for 6 mo follow up [...] around next November Coronary artery disease involving absentee-shawnee coronary artery of absentee-shawnee heart without angina pectoris Coronary artery disease is stable Continue GDMT- ASA, lipitor, lisinopril continue risk factor modifications- heart healthy diet, regular exercise as tolerated and continue all medications. He remains very active without any limiting symptoms Chronic pulmonary embolism without acute cor pulmonale (CMS/HCC) H/O PE s/p thrombectomy/thrombolisis Cardiac arrest x2 in 2019 Lifelong anticoagulation- remains on eliquis Presence of drug coated stent in right coronary artery Continue GDMT Pre-operative cardiovascular examination RCRI= 1 points Class II Risk 6.0 % 30-day risk of , PA, or cardiac arrest From a cardiology perspective pt may proceed with planned Lt TKA, he is a low to moderate risk for moderate risk surgery, he may hold eliquis 2-3 days prior to surgery. Please resume all meds post op and monitor hemodynamics carefully and prevent any major fluid shifts. Osteoarthritis of knee Planning for Lt TKA RTC 6 months [facility] 08-05-2023 Note Patient here for 6 m o follow up CAD and hx of PE. Also needs cleared for knee replacement. Denies chest pain, SOB, palpitations, and lightheadedness. Doing very well. Review of Systems Cardiovascular: Positive for dyspnea on exertion and leg swelling. Musculoskeletal: Positive for arthritis and joint pain. All other systems reviewed and are negative. [facility] 08-05-2023 Note Continue GDMT [facility] 08-05-2023 Note H/O PE s/p thrombectomy/thrombolisis Cardiac arrest x2 in 2019 Lifelong anticoagulation- remains on eliquis [facility] 08-05-2023 Note Coronary artery dise ase is stable Continue GDMT- ASA, lipitor, lisinopril continue risk factor modifications- heart healthy diet, regular exercise as tolerated and continue all medications. He remains very active without any limiting symptoms [facility] 08-05-2023 Note Continue lipitor Routine annual labs due around next November [facility] 11-06-2020 Note Patient Outreach ([place] [facility]) SERGE SHINE ([id number]) 1945 M Date Time Provider Department 11/06/20 GE GARCIA During your visit today, we recorded the following information about you: Allergies As of Date: 11/06/2020 (No Known Allergies) Date Reviewed: 06/16/2019 Reviewed by: Sudha Cartagena - Fully Assessed Order(s):SARS-COVID VACCINE 1ST DOSE APPT [[id number]] Order #: [id number] FUTURE Prescriptions as of 11/06/2020 Sig: ASPIRIN [...] 11/06/2020 (None) Letter Text Encounter Status:Closed by EPIC, PRODUSER on 11/09/20 [facility] Evaluation note Diagnosis Preop examination- Primary Unspecified pre-operative examination Primary osteoarthritis of left knee Type 2 diabetes mellitus with hyperglycemia, without long-term current use of insulin (CMS/HCC) Benign essential hypertension (CMS/HCC) Essential hypertension, benign Coronary artery disease involving absentee-shawnee coronary artery of absentee-shawnee heart without angina pectoris (CMS/HCC) documented in this encounter [facility] HealthcareEvaluation note* Diagnosis Acute pain of left knee documented in this encounter [facility] HealthcareEvaluation note* Diagnosis Preop examination- Primary Unspecified pre-operative examination Hypertension, unspecified type Atrial fibrillation, unspecified type (CMS-HCC) Type 2 diabetes mellitus without complication, unspecified whether terminal operator insulin use (CMS-HCC) Former smoker Personal history of tobacco use, presenting hazards to health Osteoarthritis of left knee, unspecified osteoarthritis type Urinary frequency Preop examination Unspecified pre-operative examination Hypertension, unspecified type Atrial fibrillation, unspecified type (CMS-HCC) Type 2 diabetes mellitus without complication, unspecified whether half-way insulin use (CMS-HCC) Former smoker Personal history of tobacco use, presenting hazards to health Osteoarthritis of left knee, unspecified osteoarthritis type Urinary frequency documented in this encounter [facility] Summary Purpose Family History No Family History Records FoundNo Family History Records FoundNo Family History Records FoundNo Family History Records FoundNo Family History Records FoundNo Family History Records Found Advance Directives No Advanced Directives Records FoundNo Advanced Directives Records FoundNo Advanced Directives Records FoundNo Advanced Directives Records FoundNo Advanced Directives Records FoundNo Advanced Directives Records Found Hospital Course Note MR#: [id number] [facility] Pt. Name: Serge Shine Admitted: 05/31/2019 Discharged: [...] a 74-year-old male, who was transferred from [facility] on May 31, 2019 for pulmonary embolism. [...] Referral Specialty Diagnoses / Procedures Referred By Contac t Referred To Contact Diagnoses Preop examination Hypertension, unspecified type Atrial fibrillation, unspecified type ([facility]) Type 2 diabetes mellitus without complication, unspecified whether half-way insulin use ([facility]) Former smoker Osteoarthritis of left knee, unspecified osteoarthritis type Urinary frequency Procedures ECG 12 lead Willie Woods Jr., DO [address] [facility] [address] [place] [address] Referral ID Status Reason Start Date Expiration Date V isits Requested Visits Authorized [id number] Pending Review 11/27/2023 11/26/2024 1 1 Additional Source Comments (unrecognized sect ion and content) No Status Records FoundNo Status Records FoundNo Status Records FoundNo Status Records FoundNo Status Records FoundNo Status Records Found INFORMATION SOURCE (unrecogn ized section and content) DATE CREATED AUTHOR 07/14/2019 [facility] DATE CREATED AUTHOR AUTHOR'S ORGANIZ ATION 10/24/2021 [facility] DATE CREATED AUTHOR AUTHOR'S ORGANIZ ATION 11/19/2022 [facility] DATE CREATED AUTHOR AUTHOR'S ORGANIZ ATION 01/06/2024 [facility] DATE CREATED AUTHOR AUTHOR'S ORGANIZ ATION 02/11/2024 [facility] DATE CREATED AUTHOR AUTHOR'S ORGANIZ ATION 02/14/2024 [facility] EPIC Care Teams (unrecognized sec tion and content) Patient Resource Coordinator Relationship Specialty Start Date End Date Benedict Vallecillo MD [address] [place] [id number] PCP - [facility] 10/05/23 Patient Resource Coordinator Relationship Specialty Start Date End Date Benedict Vallecillo MD [address] [place] [id number] PCP - [facility] 10/05/23 Patient Resource Coordinator Relationship Specialty Start Date End Date Benedict Vallecillo MD [address] [place] [phone] PCP - [facility] 10/05/23 Patient Resource Coordinator Relationship Specialty Start Date End Date Benedict Vallecillo MD [address] [place] [phone] PCP - [facility] 10/05/23 Reason for Visit (unrecogniz ed section [...] BE BASED ON THE PRIMARY CLINICAL RECORDS. [email or web address] [facility]. provides no warranty or guarantee of the accuracy or completeness of information in this document.
== END 2024-02-29 07:53 | disposition home or self-care (01) ==
LOC: CARD 07:53
PROVIDERS: PCP Family Medicine; Visit Provider Internal Medicine Interventional Cardiology
DX: I25.10 Atherosclerotic heart disease of native coronary artery without angina pectoris (principal); Z86.711 Personal history of pulmonary embolism; Z95.5 Presence of coronary angioplasty implant and graft
CPT/HCPCS: 93306

== ENCOUNTER 2024-07-19 07:32 | Outpatient (OUT) | payer MEDICARE, BC, SELFPAY ==
--- OUTSIDE RECORDS SUMMARY | 2024-07-19 07:37 | XMS_ITS | CCD ---
Author Organization [facility] Care Team Providers Care Art Conservator Name Role Phone UNKNOWN, PROVIDER Admitting Unavailable LUX ORTIZ Referring Unavailable NADEREBENEDICT Melton Primary Care Unavailable JACQUELYN STEIN Attending Unavailable [place] Procedure Practitioner Unavailab le UNKNOWN, PROVIDER Surgeon [...] Unavailable Benedict Vallecillo MD Primary Care Provider [phone] Unavailable Primary Care Provider UnavailWILLIE Coburn JR Referring Unavailabl e STEPWILLIE REED JR Referring Unavailabl e WILLIE WOODS JR Attending Unavailabl e WILLIE WOODS JR Referring Unavailabl e WILLIE WOODS JR Attending Unavailabl e WILLIE WOODS JR Referring Unavailabl e STEPWILLIE REED JR Referring Unavailabl e NADERERBENEDICT Primary Care Unavailable WILLIE WOODS JR Referring Unavailabl e NADERERBENEDICT Primary Care Unavailable WILLIE WODOS JR Admitting Unavailabl e WILLIE WOODS JR Attending Unavailabl KVNG Ventura Attending Unavailable WILLIE DEL CID Attending Unavailable ANH POPE Attending Unavailable BENEDICT VALLECILLO Attending Unavailable JR. WOODS GEORGE C Attending Unavaila yunior WOODS JR., GEORGE C Referring Unavaila BERNICE Acosta Attending Unavailable GAL BAUTISTA Attending Unavailable BERNICE LUNA Referring Unavailable BENEDICT VALLECILLO Attending Unavailable BERNICE LUNA Attending Unavailable VIJAY WELCH Attending Unavailable JR. WOODS GEORGE C Referring Unavaila ble ESTEPHANIE PRESSLEY Attending Unavailable JR. WOODS GEORGE C Referring Unavaila GISELLE Taylor Attending Unavailable JR. INDY, WILLIE Manzano Referring Unavaila ble ESTEPHANIE PRESSLEY Attending Unavailable JR. INDY, WILLIE Manzano Referring Unavaila GISELLE Taylor Attending Unavailable JR. INDY, WILLIE Manzano Referring Unavaila ESTEPHANIE Chambers Attending Unavailable JR. INDY, WILLIE Manzano Referring Unavaila GISELLE Taylor Attending Unavailable JR. INDY, WILLIE Manzano Referring Unavaila BERNICE Acosta Attending Unavailable BERNICE LUNA Referring Unavailable BERNICE LUNA Attending Unavailable Allergies Allergy Classification Reported Allergen(s) Allergy Type Date of Onset Reaction(s) Facility (1 source) 21796,00 Drug allergy (disorder) 05-31-2019 [facility] Repository Medications Current Medications Medication Drug Class(es) Dates Sig (Normalized) Sig (Original) apixaban 5 mg oral tablet (10 sources) Factor Xa Inhibitor Start: 09-18-2023 take 1 tablet by mouth twice daily Eliquis 5 MG tablet Indications: Chronic pulmonary embolism without acute cor pulmonale, unspecified pulmonary embolism type (CMS/HCC) TAKE 1 TABLET BY MOUTH TWICE DAILY 180 tablet 3 09/18/2023 Active ascorbic acid 113 mg / copper gluconate 0.4 mg / docosahexaenoic acid 87.5 mg / eicosapentaenoic acid 163 mg / lutein 2.5 mg / tocopherol acetate 100 unt / zeaxanthin 0.5 mg / zinc oxide 17.4 mg oral capsule (9 sources) Vitamin C take 1 tablet by mouth twice daily Multiple Vitamins-Minerals (PreserVision AREDS 2) capsule 1 tablet Orally two times daily Active aspirin 81 mg delayed release oral tablet (10 sources) Platelet Aggregation Inhibitor, Nonsteroidal Anti-inflammatory Drug End: 07-18-2024 take 1 tablet by mouth in the morning aspirin 81 MG EC tablet Take 1 tablet by mouth in the morning. 07/18/2024 Discontinued atorvastatin 40 mg oral tablet (10 sources) HMG-CoA Reductase Inhibitor Start: 09-18-2023 take 1 tablet by mouth at bedtime atorvastatin (Lipitor) 40 MG tablet Indications: Coronary artery disease involving chitina coronary artery of chitina heart without angina pectoris (CMS/HCC) TAKE 1 TABLET BY MOUTH AT BEDTIME 90 tablet 3 09/18/2023 Active empagliflozin 25 mg oral tablet (10 sources) Sodium-Glucose Cotransporter 2 Inhibitor Start: 09-18-2023 take 1 tablet by mouth once daily Jardiance 25 MG Indications: Type 2 diabetes mellitus with hyperglycemia, without long-term current use of insulin (CMS/HCC) TAKE 1 TABLET BY MOUTH DAILY 90 tablet 3 09/18/2023 Active folic acid 1 mg / polysaccharide iron complex 150 mg / vitamin b12 0.025 mg oral capsule (1 source) Vitamin B12 Start: 11-30-2023 End: 12-30-2023 take 1 tablet by mouth in the morning POLY-IRON 150 FORTE 150-25-1 mg-mcg-mg capsule Take 1 tablet by mouth in the morning. 0 11/30/2023 12/30/2023 Active glipiZIDE 10 mg oral tablet (10 sources) Sulfonylurea Start: 12-09-2023 take 1 tablet by mouth once daily glipiZIDE (Glucotrol) 10 MG tablet Indications: Type 2 diabetes mellitus with hyperglycemia, without long-term current use of insulin (CMS/HCC) TAKE 1 TABLET BY MOUTH DAILY 90 tablet 3 12/09/2023 Active take 1 tablet by mouth in the mo rning glipiZIDE (GLUCOTROL) 10 mg tablet Take 1 tablet (10 mg total) by mouth in the morning. 0 Active lisinopril 20 mg oral tablet (10 sources) Angiotensin Converting Enzyme Inhibitor Start: 09-18-2023 take 1 tablet by mouth once daily lisinopril 20 MG tablet Indications: Primary hypertension (CMS/HCC) TAKE 1 TABLET BY MOUTH DAILY 90 tablet 3 09/18/2023 Active Multiple Vitamins-Minerals (Centrum Silver 50+Men) tablet (9 sources) Multiple Vitamins-Minerals (Centrum Silver 50+Men) tablet as directed Orally Active Multiple Vitamin s-Minerals (Centrum Silver 50+Men) tablet as directed Orally 0 Active omyknbgb-tjgh-MM-calcium &mi ns (THERAGRAN-M) 9 mg iron-400 mcg tablet (1 source) kwrcwclc-nmge-QE -calcium &mins (THERAGRAN-M) 9 mg iron-400 mcg tablet Take 1 tablet by mouth in the morning. 0 Active vit C/E/zinc ox/ginny/lut/helio x (ICAPS AREDS2 ORAL) (1 source) take 1 tablet by mouth in the morning vit C/E/zinc ox/ginny/lut/zeax (ICAPS AREDS2 ORAL) Take 1 tablet by mouth in the morning. 0 Active Problems Active Problems Problem Classification Problem Date Documented Da te Episodic/Chronic Cardiac dysrhythmias (2 sources) Atrial fibrillation; Translations: [Unspecified atrial fibrillation] Onset: 12-03-2023 11-27-2023 Chronic Conduction disorders (9 sources) Heart block ; Translations: [Conduction disorder, unspecified] Onset: 06-21-2019 04-22-2023 Chronic Coronary atherosclerosis and other heart disease (20 sources) Coronary arteriosclerosis; Translations: [Atherosclerotic heart disease of chitina coronary artery without angina pectoris] Onset: 06-21-2019 Resolved: 10-16-2023 04-22-2023 Chronic Diabetes mellitus with complications (16 sources) Type 2 diabetes mellitus with hyperglycemia; Translations: [Type 2 diabetes mellitus] Onset: 05-15-2022 Chronic Diabetes mellitus without complication (2 sources) Type 2 diabetes mellitus without complication; Translations: [Type 2 diabetes mellitus without complications] Onset: 12-03-2023 11-27-2023 Chronic Disorders of lipid metabolism (12 sources) Hyperlipidemia, unspecified; Translations: [Mixed hyperlipidemia] Onset: 11-17-2022 04-22-2023 Chronic Essential hypertension (17 sources) Essential (primary) hypertension; Translations: [Benign essential hypertension] Onset: 11-13-2022 Chronic Genitourinary symptoms and ill-defined conditions (2 sources) Increased frequency of urination; Translations: [Frequency of micturition] Onset: 12-03-2023 11-27-2023 Episodic Gout and other crystal arthropathies (8 sources) Gouty arthropathy; Translations: [Gout, unspecified] Onset: 10-16-2023 10-16-2023 Chronic Osteoarthritis (20 sources) Osteoarthritis of knee; Translations: [Osteoarthritis of knee, unspecified] Onset: 04-22-2023 04-22-2023 Chronic Other aftercare (1 source) Other termite treater (current) drug therapy; Translations: [OTH [facility] CURRENT DRUG THERAPY] Onset: 11-17-2022 Episodic Other connective tissue disease (3 sources) Artificial knee joint present; Translations: [Presence of right artificial knee joint] Onset: 01-18-2024 01-18-2024 Chronic Other liver diseases (8 sources) Non-alcoholic fatty liver; Translations: [Fatty (change of) liver, not elsewhere classified] Onset: 10-16-2023 10-16-2023 Chronic Other non-traumatic joint disorders (3 sources) Pain in left knee; Translations: [Pain in joint, lower leg] Onset: 12-29-2023 10-21-2023 Episodic Other nutritional; endocrine; and metabolic disorders (3 sources) Body mass index 30+ - obesity; Translations: [Obesity, unspecified] Onset: 12-11-2023 12-11-2023 Chronic Peripheral and visceral atherosclerosis (8 sources) Peripheral vascular disease; Translations: [Peripheral vascular disease, unspecified] Onset: 10-16-2023 10-16-2023 Chronic Pulmonary heart disease (11 sources) Chronic pulmonary embolism; Translations: [Chronic pulmonary embolism] Onset: 02-04-2023 04-22-2023 Chronic Screening and history of mental health and substance abuse codes (2 sources) Ex-smoker; Translations: [Personal history of nicotine dependence] Onset: 12-03-2023 11-27-2023 Episodic Unclassified (1 source) left knee degenerative joint disease Onset: 12-29-2023 Past or Other Problems Problem Classification Problem Date Documented Da te Episodic/Chronic Conditions associated with dizziness or vertigo (8 sources) Benign paroxysmal positional vertigo; Translations: [Benign paroxysmal vertigo, unspecified ear] Onset: 10-16-2023 10-16-2023 Episodic Coronary atherosclerosis and other heart disease (11 sources) Presence of coronary angioplasty implant and graft; Translations: [Percutaneous transluminal coronary angioplasty status] Onset: 02-04-2023 04-22-2023 Episodic Mood disorders (2 sources) Mood disorders Onset: 07-18-2024 07-18-2024 Other aftercare (3 sources) Long-term current use of drug therapy; Translations: [Other retirement (current) drug therapy] Onset: 12-11-2023 12-11-2023 Episodic Other screening for suspected conditions (not mental disorders or infectious disease) (4 sources) Encounter for screening for malignant neoplasm of prostate; Translations: [Patient encounter status] Onset: 11-17-2022 12-11-2023 Episodic Pulmonary heart disease (11 sources) H/O: pulmonary embolus; Translations: [Personal history of pulmonary embolism] Onset: 12-21-2020 04-22-2023 Episodic Results Test Name Value Interpretation Reference Range Facility Office Visiton 02-10-2024 Follow-up visit [id number] Serge Shine 1945 M Date Provider Department Center 02/10/2024 WILLIE JEROME CARD [facility] Family History Problem Relation Age of Onset No Known Problems Mother No Known Problems Father Family Status - Relation Status Age at Mother Father Level of Service:12954 [place] OFFICE/OUTPATIENT ESTABLISHED LOW MDM 20 MIN Normal [facility] Glucose Glucometer (BldC) [M ass/Vol]on 12-29-2023 Glucose [Mass/Vol] 152 mg/dL High 65-99 [facility] XR KNEE LT 1 OR 2 VWSon 12-13 XR KNEE LT 1 OR 2 VWS XR KNEE LT 1 OR 2 VWS XR KNEE LT 1 OR 2 VWS HISTORY: Knee replacement. COMPARISON: None. IMPRESSION: 1. Knee prosthesis, joint effusion, swelling, no complication Finalized by Mark Toribio MD on 12/29/2023 11:36 AM Normal [facility] Bacteria identified Cx Nom ( U)on 12-04-2023 Service comment (Unsp spec) [Interp] NO GROWTH AT <1000 CFU/mL [facility] CBC AND AUTO DIFFon 12-03-19 24 ABSOLUTE BASOPHIL 0.0 X10E9/L Normal 0.0-0.2 [facility] Comment on above: Performed By: #### C BCA, CMP #### [facility] ([id number]) [address], [address] [place] [address] ABSOLUTE NEUTROPHIL 4.7 X10E9/L Normal 1.5-6.6 [facility] Comment on above: Performed By: #### C BCA, CMP #### [facility] ([id number]) [address], [address] [place] [address] Basophils/100 WBC (Bld) 0.5 % Normal [facility] Comment on above: Performed By: #### C BCA, CMP #### [facility] ([id number]) [address] [place] [address] Eosinophils (Bld) [#/Vol] 0.1 10*3/uL Normal 0.0-0.4 [facility] Comment on above: Performed By: #### C BCA, CMP #### [facility] ([id number]) [address] [place] [address] Eosinophils/100 WBC (Bld) 1.8 % Normal [facility] Comment on above: Performed By: #### C JUANPABLO, CMP #### [facility] ([id number]) [address] [place] [address] Erythrocyte distribution width (RBC) [Ratio] 14.3 % Normal 11.5-15.0 [facility] Comment on above: Performed By: #### C JUANPABLO, CMP #### [facility] ([id number]) [address] [place] [address] Hematocrit (Bld) [Volume fraction] 47.0 % Normal 39-49 [facility] Comment on above: Performed By: #### C JUANPABLO, CMP #### [facility] ([id number]) [address] [place] [address] Hemoglobin (Bld) [Mass/Vol] 15.9 g/dL Normal 13.0-17.0 [facility] Comment on above: Performed By: #### C BCA, CMP #### [facility] ([id number]) [address] [place] [address] Lymphocytes (Bld) [#/Vol] 1.4 10*3/uL Normal 1.0-3.5 [facility] Comment on above: Performed By: #### C BCA, CMP #### [facility] ([id number]) [address] [place] [address] Lymphocytes/100 WBC (Bld) 20.5 % Normal [facility] Comment on above: Performed By: #### C BCA, CMP #### [facility] ([id number]) [address], [address] [place] [address] MCH (RBC) [Entitic mass] 31.1 pg Normal 27-34 [facility] Comment on above: Performed By: #### C BCA, CMP #### [facility] ([id number]) [address], [address] [place] [address] MCHC (RBC) [Mass/Vol] 33.9 g/dL Normal 32-36 [facility] Comment on above: Performed By: #### C BCA, CMP #### [facility] ([id number]) [address], [address] [place] [address] MCV (RBC) [Entitic vol] 92 fL Normal 80-100 [facility] Comment on above: Performed By: #### C BCA, CMP #### [facility] ([id number]) [address], [address] [place] [address] Monocytes (Bld) [#/Vol] 0.7 10*3/uL Normal 0-0.9 [facility] Comment on above: Performed By: #### C BCA, CMP #### [facility] ([id number]) [address], [address] [place] [address] Monocytes/100 WBC (Bld) 9.7 % Normal [facility] Comment on above: Performed By: #### C BCA, CMP #### [facility] ([id number]) [address], [address] [place] [address] Neutrophils/100 WBC (Bld) 67.5 % Normal [facility] Comment on above: Performed By: #### C BCA, CMP #### [facility] ([id number]) [address], [address] [place] [address] Platelet mean volume (Bld) [Entitic vol] 8.4 fL Normal 7-12 [facility] Comment on above: Performed By: #### Jose Juan GERONIMO, CMP #### [facility] ([id number]) [address], [facility] [address] [place] [address] Platelets (Bld) [#/Vol] 155 10*3/uL Normal 150-450 [facility] Comment on above: Performed By: #### Jose Juan GERONIMO, CMP #### [facility] ([id number]) [address], [facility] [address] [place] [address] RBC COUNT 5.12 X10E12/L Normal 4.10-5.70 [facility] Comment on above: Performed By: #### Jose Juan GERONIMO, CMP #### [facility] ([id number]) [address], [address] [place] [address] WBC (Bld) [#/Vol] 7.0 10*3/uL Normal 4.0-11.0 [facility] Comment on above: Performed By: #### Jose Juan GERONIMO, CMP #### [facility] ([id number]) [address], [address] [place] [address] CBC auto differentialon 11-13 Basophils (Bld) [#/Vol] 0.0 10*3/uL [facility] Basophils/100 WBC (Bld) 0.5 % [facility] Eosinophils (Bld) [#/Vol] 0.1 10*3/uL [facility] Eosinophils/100 WBC (Bld) 1.8 % [facility] Erythrocyte distribution width (RBC) [Ratio] 14.3 % 11.5 - 15.0 % [facility] Hematocrit (Bld) [Volume fraction] 47.0 % 39 - 49 % [facility] Hemoglobin (Bld) [Mass/Vol] 15.9 g/dL 13.0 - 17.0 g/dL [facility] Lymphocytes (Bld) [#/Vol] 1.4 10*3/uL [facility] Lymphocytes/100 WBC (Bld) 20.5 % [facility] MCH (RBC) [Entitic mass] 31.1 pg 27 - 34 pg [facility] MCHC (RBC) [Mass/Vol] 33.9 g/dL 32 - 36 g/dL [facility] MCV (RBC) [Entitic vol] 92 fL 80 - 100 fL [facility] Monocytes (Bld) [#/Vol] 0.7 10*3/uL [facility] Monocytes/100 WBC (Bld) 9.7 % [facility] Neutrophils (Bld) [#/Vol] 4.7 10*3/uL [facility] Neutrophils/100 WBC (Bld) 67.5 % [facility] Platelet mean volume (Bld) [Entitic vol] 8.4 fL 7 - 12 fL [facility] Platelets (Bld) [#/Vol] 155 10*3/uL [facility] RBC (Bld) [#/Vol] 5.12 10*6/uL [facility] WBC corrected for nucl RBC Auto (Bld) [#/Vol] 7.0 [facility] COMPREHENSIVE METABOLIC PANE Yung 12-03-2023 Albumin [Mass/Vol] 4.2 g/dL Normal 3.2-5.3 [facility] Comment on above: Performed By: #### C BCA, CMP #### [facility] ([id number]) [address], [address] [place] [address] ALP [Catalytic activity/Vol] 103 U/L Normal 39-130 [facility] Comment on above: Performed By: #### C BCA, CMP #### [facility] ([id number]) [address], [address] [place] [address] ALT [Catalytic activity/Vol] 30 U/L Normal 0-40 [facility] Comment on above: Performed By: #### C BCA, CMP #### [facility] ([id number]) [address], [address] [place] [address] Anion gap [Moles/Vol] 12 mmol/L Normal 5-15 [facility] Comment on above: Performed By: #### C BCA, CMP #### [facility] ([id number]) [address], [address] [place] [address] AST [Catalytic activity/Vol] 28 U/L Normal 0-41 [facility] Comment on above: Performed By: #### C BCA, CMP #### [facility] ([id number]) [address], [address] [place] [address] Bilirubin [Mass/Vol] 0.7 mg/dL Normal 0.3-1.2 [facility] Comment on above: Performed By: #### C BCA, CMP #### [facility] ([id number]) [address], [address] [place] [address] Calcium [Mass/Vol] 9.9 mg/dL Normal 8.5-10.5 [facility] Comment on above: Performed By: #### C BCA, CMP #### [facility] ([id number]) [address], [address] [place] [address] Chloride [Moles/Vol] 106 mmol/L Normal 98-109 [facility] Comment on above: Performed By: #### C BCA, CMP #### [facility] ([id number]) [address], [address] [place] [address] CO2 [Moles/Vol] 27 mmol/L Normal 22-32 [facility] Comment on above: Performed By: #### C BCA, CMP #### [facility] ([id number]) [address] [place] [address] Creatinine [Mass/Vol] 1.15 mg/dL Normal 0.60-1.30 [facility] Comment on above: Result Comment: METH OD TRACEABLE TO IDMS STANDARD Performed By: #### C BCA, CMP #### [facility] ([id number]) [address], [address] [place] [address] GFR/1.73 sq M.predicted among non-blacks MDRD (S/P/Bld) [Vol rate/Area] 66 mL/min/{1.73_m2} Normal >59 [facility] Comment on above: Result Comment: Reported eGFR is based on the CKD-EPI 2020 equation that does not use a race coefficient. Performed By: #### C BCA, CMP #### [facility] ([id number]) [address], [address] [place] [address] Glucose [Mass/Vol] 94 mg/dL Normal 65-99 [facility] Comment on above: Performed By: #### C BCA, CMP #### [facility] ([id number]) [address] [facility] [address] [place] [address] Potassium [Moles/Vol] 4.3 mmol/L Normal 3.5-5.0 [facility] Comment on above: Performed By: #### C BCA, CMP #### [facility] ([id number]) [address] [place] [address] Protein [Mass/Vol] 7.0 g/dL Normal 6.0-8.0 [facility] Comment on above: Performed By: #### C BCA, CMP #### [facility] ([id number]) [address] [facility] [place] [address] Sodium [Moles/Vol] 145 mmol/L Normal 134-146 [facility] Comment on above: Performed By: #### C BCA, CMP #### [facility] ([id number]) [address] [place] [address] Urea nitrogen [Mass/Vol] 26 mg/dL Normal 5-27 [facility] Comment on above: Performed By: #### C BCA, CMP #### [facility] ([id number]) [address] [place] [address] Comprehensive metabolic pane yung 12-03-2023 Albumin [Mass/Vol] 4.2 g/dL 3.2 - 5.3 g/dL [facility] ALP [Catalytic activity/Vol] 103 U/L 39 - 130 U/L [facility] ALT No additional P-5'-P [Catalytic activity/Vol] 30 U/L 0 - 40 U/L [facility] Anion gap [Moles/Vol] 12 mmol/L 5 - 15 mmol/L [facility] AST [Catalytic activity/Vol] 28 U/L 0 - 41 U/L [facility] Bilirubin [Mass/Vol] 0.7 mg/dL 0.3 - 1 .2 mg/dL [facility] Calcium [Mass/Vol] 9.9 mg/dL 8.5 - 10. 5 mg/dL [facility] Chloride [Moles/Vol] 106 mmol/L 98 - 10 9 mmol/L [facility] CO2 [Moles/Vol] 27 mmol/L 22 - 32 mmol/L [facility] Creatinine [Mass/Vol] 1.15 mg/dL 0.60 - 1.30 mg/dL [facility] Comment on above: METHOD TRACEABLE TO IDTX STANDARD eGFR (CKD-EPI)non-race dependent 66 - PINF [facility] Comment on above: Reported eGFR is based on the CKD-EPI 2020 equation that does not use a race coefficient. Glucose [Mass/Vol] 94 mg/dL 65 - 99 mg/dL [facility] Potassium [Moles/Vol] 4.3 mmol/L 3.5 - 5.0 mmol/L [facility] Protein [Mass/Vol] 7.0 g/dL 6.0 - 8.0 g/dL [facility] Sodium [Moles/Vol] 145 mmol/L 134 - 146 mmol/L [facility] Urea nitrogen [Mass/Vol] 26 mg/dL 5 - 27 mg/dL [facility] HGB A1C (GLYCO-HGB)on 2023 Glucose [Mass/Vol] 146 mg/dL Normal [facility] Comment on above: Performed By: #### C BCA, CMP #### [facility] ([id number]) [address], [address] [place] [address] HbA1c (Bld) [Mass fraction] 6.7 % High 4.4-5.6 [facility] Comment on above: Result Comment: NOTE ADA Guidelines Result HgbA1c Normal : less than 5.7 % Prediabetes : 5.7 % to 6.4 % Diabetes : > 6.4 % Use with caution in patients with abnormal hemoglobin variants as the half-life of red blood cells and in vivo glycation rates are affected. Performed By: #### Jose Juan GERONIMO, CMP #### [facility] ([id number]) Count includes the [facility], [address] [place] [address] Hemoglobin A1con 12-03-2023 Average glucose Estimated from glycated hemoglobin (Bld) [Mass/Vol] 146 mg/dL [facility] HbA1c (Bld) [Mass fraction] 6.7 % High 4.4 - 5.6 % [facility] Comment on above: NOTE ADA Guidelines Result HgbA1c Normal : less than 5.7 % Prediabetes : 5.7 % to 6.4 % Diabetes : > 6.4 % Use with caution in patients with abnormal hemoglobin variants as the half-life of red blood cells and in vivo glycation rates are affected. Interpretation and review of laboratory results Abnormal [facility] URINALYSISon 12-03-2023 Bilirubin Ql (U) Negative Normal NEG [facility] BLOOD/HGB Negative Normal NEG [facility] Color (U) YELLOW Normal YELLOW [facility] Glucose Ql (U) >1000 Abnormal NEG [facility] Ketones Ql (U) Negative Normal NEG [facility] Leukocyte esterase Test strip Ql (U) Negative Normal NEG [facility] Comment on above: Result Comment: HIGH CONCENTRATIONS OF GLUCOSE MAY DECREASE THE REACTIVITY OF THE DIPSTICK LEUKOCYTE TEST PAD. Nitrite Ql (U) Negative Normal NEG [facility] pH (U) 6.5 [pH] Normal 5.0-8.5 [facility] Protein Ql (U) Negative Normal NEG [facility] Specific gravity (U) [Rel density] 1.033 Normal 1.003-1.035 [facility] TURBIDITY CLEAR Normal CLEAR [facility] Urobilinogen (U) [Mass/Vol] mg/dL Normal <1.1 [facility] URINE CULTUREon 12-03-2023 Bacteria identified Cx Nom (U) CULTURE RESULTS NO GROWTH AT <1000 CFU/mL Normal [facility] Comment on above: Performed By: #### 6 30-4 #### [facility] ([id number]) [address] [place] [address], [address] [place] [address] Urinalysison 12-03-2023 Bilirubin Ql (U) Negative Negative^Ne ga tive [facility] Color (U) YELLOW YELLOW^YELLOW [facility] Glucose (U) [Mass/Vol] mg/dL Abnormal Negative^Nega tive mg/dL [facility] Hemoglobin Auto test strip Ql (U) Negative Negative^Nega tive [facility] Interpretation and review of laboratory results Abnormal [facility] Ketones (U) [Mass/Vol] Negative Negative^Nega tive mg/dL [facility] Leukocyte esterase Auto test strip Ql (U) Negative Negative^Nega ve [facility] Comment on above: HIGH CONCENTRATIONS OF GLUCOSE MAY DECREASE THE REACTIVITY OF THE DIPSTICK LEUKOCYTE TEST PAD. Nitrite Auto test strip Ql (U) Negative Negative^Nega tive [facility] pH (U) 6.5 [pH] 5.0 - 8.5 [facility] Protein (U) [Mass/Vol] Negative Negative^Nega tive mg/dL [facility] Specific gravity Refractometry automated (U) [Rel density] 1.033 1.003 - 1.035 [facility] Turbidity Ql (U) CLEAR CLEAR^CLEAR [facility] Urobilinogen Qn (U) [facility] XR CHEST 2 VWSon 12-03-2023 XR [...] Ricardo Mackey MD on 12/03/2023 4:17 PM [facility] XR Chest PA and Lateralon CHEST [...] Ricardo Mackey MD on 12/03/2023 4:17 PM [facility] Radiology Study observation (narrative) [facility] XR Chest PA and LateralOrder ed By: Ricardo Mackey on 12-03-2023 [facility] Work Phone: XR Knee - left 1 or 2 Viewso n 10-21-2023 Imaging Result: AP and lateral views of left knee showed severe varus deformity with [id number] articulation to the medial joint line, flattening [...] joint disease left knee with varus deformity [facility] Radiology Study observation (narrative) [facility] MLR HEMOGLOBIN A1Con 024 Glucose [Mass/Vol] 146 mg/dL [facility] HbA1c (Bld) [Mass fraction] 6.7 % High 4.5 - 6.2 % [facility] Comment on above: ADA RECOMMENDED LIMI T 4.0 - 6.0 ADA THERAPEUTIC TARGET < 7.0 ACTION SUGGESTED > 7.0 Interpretation and review of laboratory results Abnormal [facility] Office Visiton 08-05-2023 Follow-up visit [id number] Serge Shine 1945 M Date Provider Department Center 08/05/2023 KVNG MARIANO [facility] Family History Problem Relation Age of Onset No Known Problems Mother No Known Problems Father Family Status - Relation Status Age at Mother Father Level of Service:01412 [place] OFFICE/OUTPATIENT ESTABLISHED MOD MDM 30-39 MIN Normal [facility] CBC AUTO DIFFon 11-13-2022 BASO # 0.0 103/ul Normal 0.0-0.1 [facility] Comment on above: Performed By: #### C BC #### [facility] [address] [address] [address] Demetris Allred Basophils/100 WBC (Bld) 0.4 % Normal 0.2-2.0 [facility] Comment on above: Performed By: #### C BC #### [facility] [address] [address] [address] Demetris Allred EO # 0.2 103/ul Normal 0.0-0.7 [facility] Comment on above: Performed By: #### C BC #### [facility] [address] [place] [address] Dr. Demetris Allred Eosinophils/100 WBC (Bld) 2.2 % Normal 0.9-7.0 [facility] Comment on above: Performed By: #### C BC #### [facility] [address] [place] [address] Dr. Demetris Allred Erythrocyte distribution width (RBC) [Ratio] 12.7 % Normal 11.0-15.0 [facility] Comment on above: Performed By: #### C BC #### [facility] [address] [place] [address] Dr. Demetris Allred Hematocrit (Bld) [Volume fraction] 44.8 % Normal 42.0-54.0 [facility] Comment on above: Performed By: #### C BC #### [facility] [address] [place] [address] Dr. Demetris Allred Hemoglobin (Bld) [Mass/Vol] 15.0 g/dL Normal 14.0-18.0 [facility] Comment on above: Performed By: #### C BC #### [facility] [address] [place] [address] Dr. Demetris Allred IG # 0.02 10e3/ul Normal 0.00-0.03 [facility] Comment on above: Performed By: #### C BC #### [facility] [address] [place] [address] Dr. Demetris Allred IG % 0.3 % Normal 0.0-0.5 [facility] Comment on above: Performed By: #### C BC #### [facility] [address] [place] [address] Dr. Demetris Allred LYMPH # 1.6 103/ul Normal 1.2-3.8 [facility] Comment on above: Performed By: #### C BC #### [facility] [address] [place] [address] Dr. Demetris Allred Lymphocytes/100 WBC (Bld) 19.9 % Critically low 20.5-60.0 [facility] Comment on above: Performed By: #### C BC #### [facility] [address] [place] [address] Dr. Demetris Allred MANUAL DIFF REQ NO Normal [facility] Comment on above: Performed By: #### C BC #### [facility] [address] [place] [address] Dr. Demetris Allred MCH (RBC) [Entitic mass] 30.2 pg Normal 25.9-34.0 [facility] Comment on above: Performed By: #### C BC #### [facility] [address] [place] [address] Dr. Demetris Allred MCHC (RBC) [Mass/Vol] 33.5 g/dL Normal 29.9-35.2 [facility] Comment on above: Performed By: #### C BC #### [facility] [address] [place] [address] Dr. Demetris Allred MCV (RBC) [Entitic vol] 90.1 fL Normal 80.0-94.0 [facility] Comment on above: Performed By: #### C BC #### [facility] [address] [place] [address] Dr. Demetris Allred MONO # 0.6 103/ul Normal 0.3-0.8 [facility] Comment on above: Performed By: #### C BC #### [facility] [address] [place] [address] Dr. Demetris Allred Monocytes/100 WBC (Bld) 8.2 % Normal 1.7-12.0 [facility] Comment on above: Performed By: #### C BC #### [facility] [address] [place] [address] Dr. Demetris Allred NEUT # 5.4 103/ul Normal 1.4-6.5 [facility] Comment on above: Performed By: #### C BC #### [facility] [address] [place] [address] Dr. Demetris Allred Neutrophils/100 WBC (Bld) 69.0 % Normal 43.0-75.0 [facility] Comment on above: Performed By: #### C BC #### [facility] [address] [place] [address] Dr. Demetris Allred Platelet mean volume (Bld) [Entitic vol] 9.6 fL Normal 9.5-13.5 [facility] Comment on above: Performed By: #### C BC #### [facility] [address] [place] [address] Dr. Demetris Allred PLT 169 103/ul Normal 150-450 [facility] Comment on above: Performed By: #### C BC #### [facility] [address] [place] [address] Dr. Demetris Allred RBC 4.97 106/ul Normal 4.70-6.10 [facility] Comment on above: Performed By: #### C BC #### [facility] [address] [place] [address] Dr. Demetris Allred WBC 7.8 103/ul Normal 4.0-11.0 [facility] Comment on above: Performed By: #### C BC #### [facility] [address] [place] [address] Dr. Demetris Allred GLYCOHEMOGLOBIN A1Con 2022 ADA RECOMMENDATION SEE BELOW Normal [facility] Comment on above: Result Comment: ADA RECOMMENDED LIMIT 4.0 - 6.0 ADA THERAPEUTIC TARGET < 7.0 ACTION SUGGESTED > 7.0 Performed By: #### A 1C #### [facility] [address] [place] [address] Dr. Demetris Allred Glucose [Mass/Vol] 206 mg/dL Normal [facility] Comment on above: Performed By: #### A 1C #### [facility] [address] [place] [address] Dr. Demetris Allred HbA1c (Bld) [Mass fraction] 8.8 % Critically high 4.5-6.2 [facility] Comment on above: Performed By: #### A 1C #### [facility] [address] [place] [address] Dr. Demetris Allred LIPID PROFILEon 11-13-2022 CHOL-HDL RATIO NORM SEE BELOW Normal [facility] Comment on above: Result Comment: 3.3 - 4.4 LOW RISK 4.4 - 7.1 AVERAGE RISK 7.1 - 11.0 MODERATE RISK >11.0 HIGH RISK Performed By: #### L IVER, LIPID, BMP #### [facility] [address] [address] [address] Demetris Allred Cholesterol [Mass/Vol] 137 mg/dL Normal <=200 [facility] Comment on above: Performed By: #### L IVER, LIPID, BMP #### [facility] [address] [address] [address] Demetris Allred Cholesterol in HDL [Mass/Vol] 35 mg/dL Critically low 40-60 [facility] Comment on above: Performed By: #### L IVER, LIPID, BMP #### [facility] [address] [place] [address] Dr. Demetris Allred Cholesterol in LDL [Mass/Vol] 24.2 mg/dL Normal [facility] Comment on above: Performed By: #### L IVER, LIPID, BMP #### [facility] [address] [place] [address] Dr. Demetris Allred Cholesterol.total/Ch olesterol in HDL [Mass ratio] 3.9 {ratio} Normal [facility] Comment on above: Performed By: #### L IVER, LIPID, BMP #### [facility] [address] [place] [address] Dr. Demetris Allred HDL NORMAL > or = 60 mg/dl - LO W CARDIOVASCULAR RISK <40 mg/dl - HIGH CARDIOVASCULAR RISK Normal [facility] Comment on above: Performed By: #### L IVER, LIPID, BMP #### [facility] [address] [place] [address] Dr. Demetris Allred LDL CALC NORMAL SEE BELOW Normal [facility] Comment on above: Result Comment: <100 mg/dl OPTIMAL 100 - 129 mg/dl NEAR OR ABOVE OPTIMAL 130 - 159 mg/dl BORDERLINE HIGH 160 - 189 mg/dl HIGH >190 mg/dl VERY HIGH Performed By: #### L IVER, LIPID, BMP #### [facility] [address] [address] [address] Demetris Allred Triglyceride [Mass/Vol] 389 mg/dL Critically high <=150 [facility] Comment on above: Performed By: #### L IVER, LIPID, BMP #### [facility] [address] [address] [address] Demetris Allred VLDL CALC 77.8 mg/dL Normal [facility] Comment on above: Performed By: #### L IVER, LIPID, BMP #### [facility] [address] [address] [address] Demetris Allred LIVER PROFILEon 11-13-2022 Albumin [Mass/Vol] 3.7 g/dL Normal 3.4-5.0 [facility] Comment on above: Performed By: #### L IVER, LIPID, BMP #### [facility] [address] [place] [address] Dr. Demetris Allred Albumin/Globulin [Mass ratio] 0.9 {ratio} Normal [facility] Comment on above: Performed By: #### L IVER, LIPID, BMP #### [facility] [address] [address] [address] Demetris Allred ALP [Catalytic activity/Vol] 133 U/L Critically high 46-116 [facility] Comment on above: Performed By: #### L IVER, LIPID, BMP #### [facility] [address] [address] [address] Demetris Allred ALT [Catalytic activity/Vol] 49 U/L Normal 16-63 [facility] Comment on above: Performed By: #### L IVER, LIPID, BMP #### [facility] [address] [address] [address] Demetris Allred AST [Catalytic activity/Vol] 31 U/L Normal 15-37 [facility] Comment on above: Performed By: #### L IVER, LIPID, BMP #### [facility] [address] [address] [address] Demetris Allred BILI, CONJUGATED 0.2 mg/dL Normal 0.0-0.2 [facility] Comment on above: Performed By: #### L IVER, LIPID, BMP #### [facility] [address] [place] [address] Dr. Demetris Allred Bilirubin [Mass/Vol] 1.0 mg/dL Normal 0.2-1.0 [facility] Comment on above: Performed By: #### L IVER, LIPID, BMP #### [facility] [address] [place] [address] Dr. Demetris Allred Globulin (S) [Mass/Vol] 4.1 g/dL Normal [facility] Comment on above: Performed By: #### L IVER, LIPID, BMP #### [facility] [address] [place] [address] Dr. Demetris Allred Protein [Mass/Vol] 7.8 g/dL Normal 6.4-8.2 [facility] Comment on above: Performed By: #### L IVER, LIPID, BMP #### [facility] [address] [place] [address] Dr. Demetris Allred MICROALBUMIN, RAND URon 03-0 mALB 2.7 mg/L Normal <=30.0 [facility] Comment on above: Performed By: #### M ALBR #### [facility] [address] [place] [address] Dr. Demetris Allred PROF CHEM 8 (BAS METB)on Anion gap [Moles/Vol] 12.4 mmol/L Normal [facility] Comment on above: Performed By: #### L IVER, LIPID, BMP #### [facility] [address] [place] [address] Dr. Demetris Allred Calcium [Mass/Vol] 9.5 mg/dL Normal 8.5-10.1 [facility] Comment on above: Performed By: #### L IVER, LIPID, BMP #### [facility] [address] [place] [address] Dr. Demetris Allred Chloride [Moles/Vol] 101 mmol/L Normal 98-107 [facility] Comment on above: Performed By: #### L IVER, LIPID, BMP #### [facility] [address] [address] [address] Demetris Allred CO2 [Moles/Vol] 28.9 mmol/L Normal 21.0-32.0 [facility] Comment on above: Performed By: #### L IVER, LIPID, BMP #### [facility] [address] [address] [address] Demetris Allred Creatinine [Mass/Vol] 0.81 mg/dL Normal 0.70-1.30 [facility] Comment on above: Performed By: #### L IVER, LIPID, BMP #### [facility] [address] [address] [address] Demetris Allred EGFR-AF BURMESE >60 Normal >=60 [facility] Comment on above: Performed By: #### L IVER, LIPID, BMP #### [facility] [address] [address] [address] Demetris Allred EGFR-NON AF BURMESE >60 Normal >=60 [facility] Comment on above: Performed By: #### L IVER, LIPID, BMP #### [facility] [address] [address] [address] Demetris Allred Glucose [Mass/Vol] 252 mg/dL Critically high 74-106 [facility] Comment on above: Performed By: #### L IVER, LIPID, BMP #### [facility] [address] [address] [address] Demetris Allred Potassium [Moles/Vol] 4.3 mmol/L Normal 3.5-5.1 [facility] Comment on above: Performed By: #### L IVER, LIPID, BMP #### [facility] [address] [address] [address] Demetris Allred Sodium [Moles/Vol] 138 mmol/L Normal 136-145 [facility] Comment on above: Performed By: #### L IVER, LIPID, BMP #### [facility] [address] [address] [address] Demetris Allred Urea nitrogen [Mass/Vol] 16.0 mg/dL Normal 7.0-18.0 [facility] Comment on above: Performed By: #### L IVER, LIPID, BMP #### [facility] [address] [address] [address] Demetris Allred Urea nitrogen/Creatinine [Mass ratio] 19.8 mg/mg Normal [facility] Comment on above: Performed By: #### L IVER, LIPID, BMP #### [facility] [address] [address] [address] Demetris Allred GLYCOHEMOGLOBIN A1Con 2021 ADA RECOMMENDATION SEE BELOW Normal [facility] Comment on above: Result Comment: ADA RECOMMENDED LIMIT 4.0 - 6.0 ADA THERAPEUTIC TARGET < 7.0 ACTION SUGGESTED > 7.0 Performed By: #### A 1C #### [facility] [address] [address] [address] Demetris Allred Glucose [Mass/Vol] 174 mg/dL Normal [facility] Comment on above: Performed By: #### A 1C #### [facility] [address] [address] [address] Demetris Allred HbA1c (Bld) [Mass fraction] 7.7 % Critically high 4.5-6.2 [facility] Comment on above: Performed By: #### A 1C #### [facility] [address] [address] [address] Demetris Allred POC GLUCOSE LABon 06-06-2019 Glucose [Mass/Vol] 174 mg/dL High 70-100 [facility] Comment on above: Performed By: #### 5 3629, 99367, 29849, 88858 #### [facility] [address] [address], [facility] Glucose [Mass/Vol] 147 mg/dL High 70-100 [facility] Comment on above: Performed By: #### 5 3629, 16744, 85272, 14257 #### [facility] [address] [place] [address], [place] UFH HEPARIN ASSAYon 06-06-20 19 UNFRACTIONATED HEPARIN 0.47 IU/mL Normal 0.30-0.70 [facility] Comment on above: Result Comment: Rosanne roxaban and Apixaban will interfere with the anti Xa assay used to monitor UFH and LMWH. Performed By: #### 5 3629, 92563, 75786, 77825 #### [facility] [address] [place] [address], [facility] BASIC METABOLIC PANELon 05-16 Calcium [Mass/Vol] 8.4 mg/dL Low 8.6-10.3 [facility] Comment on above: Order Comment: No: D o not add to previous draw Performed By: #### 5 3629, 57198, 33630, 91824 #### [facility] [address] [place] [id number], [facility] Chloride [Moles/Vol] 102 mmol/L Normal 98-107 [facility] Comment on above: Order Comment: No: D o not add to previous draw Performed By: #### 5 3629, 46715, 24756, 78833 #### [facility] [address] [place] [address], [facility] CO2 [Moles/Vol] 25 mmol/L Normal 21-31 [facility] Comment on above: Order Comment: No: D o not add to previous draw Performed By: #### 5 3629, 34843, 09621, 53328 #### [facility] [address] [place] [id number], [facility] Creatinine [Mass/Vol] 0.95 mg/dL Normal 0.70-1.30 [facility] Comment on above: Order Comment: No: D o not add to previous draw Performed By: #### 5 3629, 23117, 12000, 40619 #### [facility] [address] [place] [id number], [facility] GFR/1.73 sq M predicted among blacks MDRD (S/P/Bld) [Vol rate/Area] mL/min/{1.73_m2} Normal >60 [facility] Comment on above: Order Comment: No: D o not add to previous draw Result Comment: Calc ulation may not be valid for patients over 70 years Performed By: #### 5 3629, 38506, 12949, 69292 #### [facility] [address] [place] [address], [place] GFR/1.73 sq M predicted among non-blacks MDRD (S/P/Bld) [Vol rate/Area] mL/min/{1.73_m2} Normal >60 [facility] Comment on above: Order Comment: No: D o not add to previous draw Result Comment: Calc ulation may not be valid for patients over 70 years Performed By: #### 5 3629, 61318, 66014, 22717 #### [facility] [address] [place] [address], [place] Glucose [Mass/Vol] 181 mg/dL High 70-100 [facility] Comment on above: Order Comment: No: D o not add to previous draw Performed By: #### 5 3629, 83133, 86970, 67245 #### [facility] [address] [place] [address], [place] Potassium [Moles/Vol] 3.8 mmol/L Normal 3.5-5.1 [facility] Comment on above: Order Comment: No: D o not add to previous draw Performed By: #### 5 3629, 81886, 33280, 63953 #### [facility] [address] [place] [address], [place] Sodium [Moles/Vol] 133 mmol/L Low 136-145 [facility] Comment on above: Order Comment: No: D o not add to previous draw Performed By: #### 5 3629, 82534, 32670, 59847 #### [facility] [address] [place] [address], [place] Urea nitrogen [Mass/Vol] 19 mg/dL Normal 7-25 [facility] Comment on above: Order Comment: No: D o not add to previous draw Performed By: #### 5 3629, 35295, 01146, 64507 #### [facility] [address] [place] [address], [facility] CBC COMPLETE BLOOD COUNTon 06-05-2019 Erythrocyte distribution width (RBC) [Ratio] 14.3 % Normal 11.5-15.0 [facility] Comment on above: Order Comment: No: D o not add to previous draw Performed By: #### 5 3629, 43106, 35365, 00058 #### [facility] [address] [place] [address], [facility] Hematocrit (Bld) [Volume fraction] 39.1 % Normal 39.0-50.0 [facility] Comment on above: Order Comment: No: D o not add to previous draw Performed By: #### 5 3629, 09287, 53769, 56539 #### [facility] [address] [place] [id number], [facility] Hemoglobin (Bld) [Mass/Vol] 12.6 g/dL Low 13.0-17.0 [facility] Comment on above: Order Comment: No: D o not add to previous draw Performed By: #### 5 362, 39047, 67228, 07043 #### [facility] [address] [place] [address], [facility] MCH (RBC) [Entitic mass] 28.8 pg Normal 27.0-33.0 [facility] Comment on above: Order Comment: No: D o not add to previous draw Performed By: #### 5 3629, 05997, 76037, 44585 #### [facility] [address] [place] [id number], [facility] MCHC (RBC) [Mass/Vol] 32.2 g/dL Normal 32.0-35.0 [facility] Comment on above: Order Comment: No: D o not add to previous draw Performed By: #### 5 362, 33266, 27229, 51129 #### [facility] [address] [place] [address], [facility] MCV (RBC) [Entitic vol] 89.5 fL Normal 82.0-98.0 [facility] Comment on above: Order Comment: No: D o not add to previous draw Performed By: #### 5 3629, 93287, 79043, 89980 #### [facility] [address] [place] [address], [place] Nucleated RBC/100 WBC (Bld) [Ratio] 0 % Normal 0-0 [facility] Comment on above: Order Comment: No: D o not add to previous draw Performed By: #### 5 362, 44308, 48025, 72078 #### [facility] [address] [place] [id number], [place] PLAT CNT 142 10*3/uL Low 150-400 [facility] Comment on above: Order Comment: No: D o not add to previous draw Performed By: #### 5 3629, 65312, 46667, 35721 #### [facility] [address] [place] [id number], [facility] RBC (Bld) [#/Vol] 4.37 10*6/uL Normal 4.20-5.70 [facility] Comment on above: Order Comment: No: D o not add to previous draw Performed By: #### 5 3629, 80531, 09431, 09827 #### [facility] [address] [place] [address], [place] WBC (Bld) [#/Vol] 5.94 10*3/uL Normal 4.00-10.60 [facility] Comment on above: Order Comment: No: D o not add to previous draw Performed By: #### 5 3629, 30953, 02751, 28238 #### [facility] [address] [place] [address], [facility] POC GLUCOSE LABon 06-05-2019 Glucose [Mass/Vol] 187 mg/dL High 70-100 [facility] Comment on above: Performed By: #### 5 3629, 70188, 87405, 93223 #### [facility] [address] [place] [address], [place] Glucose [Mass/Vol] 218 mg/dL High 70-100 [facility] Comment on above: Performed By: #### 5 3629, 11014, 22089, 50850 #### [facility] [address] [place] [address], [place] Glucose [Mass/Vol] 190 mg/dL High 70-100 [facility] Comment on above: Performed By: #### 5 3629, 84629, 63153, 91794 #### [facility] [address] [place] [address], [place] Glucose [Mass/Vol] 184 mg/dL High 70-100 [facility] Comment on above: Performed By: #### 5 3629, 19497, 16947, 28796 #### [facility] [address] [place] [address], [place] Glucose [Mass/Vol] 180 mg/dL High 70-100 [facility] Comment on above: Performed By: #### 5 3629, 67029, 72754, 83385 #### [facility] [address] [place] [address], [facility] UFH HEPARIN ASSAYon 06-05-20 19 UNFRACTIONATED HEPARIN 0.41 IU/mL Normal 0.30-0.70 [facility] Comment on above: Result Comment: Benedicta roxaban and Apixaban will interfere with the anti Xa assay used to monitor UFH and LMWH. Performed By: #### 5 3629, 67806, 80882, 21226 #### [facility] [address] [place] [id number], [facility] BASIC METABOLIC PANELon 05-16 Calcium [Mass/Vol] 8.4 mg/dL Low 8.6-10.3 [facility] Comment on above: Order Comment: No: D o not add to previous draw Performed By: #### 5 3629, 99437, 87123, 05957 #### [facility] [address] [place] [address], [place] Chloride [Moles/Vol] 102 mmol/L Normal 98-107 [facility] Comment on above: Order Comment: No: D o not add to previous draw Performed By: #### 5 3629, 30360, 16796, 22109 #### [facility] [address] [place] [address], [place] CO2 [Moles/Vol] 26 mmol/L Normal 21-31 [facility] Comment on above: Order Comment: No: D o not add to previous draw Performed By: #### 5 3629, 75432, 11973, 34744 #### [facility] [address] [place] [address], [place] Creatinine [Mass/Vol] 0.93 mg/dL Normal 0.70-1.30 [facility] Comment on above: Order Comment: No: D o not add to previous draw Performed By: #### 5 3629, 80612, 71606, 88183 #### [facility] [address] [place] [address], [place] GFR/1.73 sq M predicted among blacks MDRD (S/P/Bld) [Vol rate/Area] mL/min/{1.73_m2} Normal >60 [facility] Comment on above: Order Comment: No: D o not add to previous draw Result Comment: Calc ulation may not be valid for patients over 70 years Performed By: #### 5 3629, 15845, 71194, 98771 #### [facility] [address] [place] [address], [place] GFR/1.73 sq M predicted among non-blacks MDRD (S/P/Bld) [Vol rate/Area] mL/min/{1.73_m2} Normal >60 [facility] Comment on above: Order Comment: No: D o not add to previous draw Result Comment: Calc ulation may not be valid for patients over 70 years Performed By: #### 5 3629, 95325, 11346, 25544 #### [facility] [address] [place] [id number], [facility] Glucose [Mass/Vol] 159 mg/dL High 70-100 [facility] Comment on above: Order Comment: No: D o not add to previous draw Performed By: #### 5 3629, 12703, 69654, 74451 #### [facility] [address] [place] [id number], [facility] Potassium [Moles/Vol] 4.4 mmol/L Normal 3.5-5.1 [facility] Comment on above: Order Comment: No: D o not add to previous draw Performed By: #### 5 3629, 67430, 18368, 91924 #### [facility] [address] [place] [address], [facility] Sodium [Moles/Vol] 135 mmol/L Low 136-145 [facility] Comment on above: Order Comment: No: D o not add to previous draw Performed By: #### 5 3629, 42499, 93955, 24774 #### [facility] [address] [place] [id number], [facility] Urea nitrogen [Mass/Vol] 17 mg/dL Normal 7-25 [facility] Comment on above: Order Comment: No: D o not add to previous draw Performed By: #### 5 3629, 83663, 75237, 47461 #### [facility] [address] [place] [id number], [place] CBC W/DIFFon 06-04-2019 ABS BASOPHILS 0.0 10*3/uL Normal 0.0-0.2 The [facility] Comment on above: Order Comment: No: D o not add to previous draw Performed By: #### 5 3629, 54827, 44185, 87571 #### [facility] [address] [place] [address], [facility] ABS IMM GRANS 0.0 10*3/uL Normal 0.0-0.2 The [facility] Comment on above: Order Comment: No: D o not add to previous draw Performed By: #### 5 3629, 25558, 53735, 39558 #### [facility] [address] [place] [id number], [facility] ABS NEUTROPHILS 5.7 10*3/uL Normal 1.6-7.6 [facility] Comment on above: Order Comment: No: D o not add to previous draw Performed By: #### 5 362, 76314, 27993, 48067 #### [facility] [address] [place] [address], [facility] Basophils/100 WBC (Bld) 0.4 % Normal 0.0-1.0 [facility] Comment on above: Order Comment: No: D o not add to previous draw Performed By: #### 5 362, 51548, 15092, 52010 #### [facility] [address] [place] [address], [facility] Eosinophils (Bld) [#/Vol] 0.1 10*3/uL Normal 0.0-0.5 [facility] Comment on above: Order Comment: No: D o not add to previous draw Performed By: #### 5 3629, 84110, 48684, 45092 #### [facility] [address] [place] [address], [facility] Eosinophils/100 WBC (Bld) 1.7 % Normal 0.0-6.0 [facility] Comment on above: Order Comment: No: D o not add to previous draw Performed By: #### 5 362, 49295, 62338, 11659 #### [facility] [address] Erythrocyte distribution width (RBC) [Ratio] 14.3 % Normal 11.5-15.0 [facility] Comment on above: Order Comment: No: D o not add to previous draw Performed By: #### 5 362, 93517, 63636, 21401 #### [facility] [address] [place] [address], [facility] Hematocrit (Bld) [Volume fraction] 42.7 % Normal 39.0-50.0 [facility] Comment on above: Order Comment: No: D o not add to previous draw Performed By: #### 5 362, 13944, 68183, 34589 #### [facility] [address] [place] [address], [facility] Hemoglobin (Bld) [Mass/Vol] 13.6 g/dL Normal 13.0-17.0 [facility] Comment on above: Order Comment: No: D o not add to previous draw Performed By: #### 5 362, 26172, 63431, 20755 #### [facility] [address] [place] [address], [facility] IMMATURE GRANS 0.3 % Normal 0.0-1.0 The [facility] Comment on above: Order Comment: No: D o not add to previous draw Performed By: #### 5 362, 24331, 11831, 69608 #### [facility] [address] [address], [facility] Lymphocytes (Bld) [#/Vol] 1.3 10*3/uL Normal 1.2-4.0 [facility] Comment on above: Order Comment: No: D o not add to previous draw Performed By: #### 5 362, 84577, 20154, 08072 #### [facility] [address] [place] [id number], [facility] Lymphocytes/100 WBC (Bld) 16.9 % Low 20.0-45.0 [facility] Comment on above: Order Comment: No: D o not add to previous draw Performed By: #### 5 3629, 74252, 80424, 95212 #### [facility] [address] MCH (RBC) [Entitic mass] 28.9 pg Normal 27.0-33.0 [facility] Comment on above: Order Comment: No: D o not add to previous draw Performed By: #### 5 3629, 27352, 25630, 63105 #### [facility] [address] [place] [id number], [facility] MCHC (RBC) [Mass/Vol] 31.9 g/dL Low 32.0-35.0 [facility] Comment on above: Order Comment: No: D o not add to previous draw Performed By: #### 5 362, 25280, 25850, 05611 #### [facility] [address] [place] [address], [facility] MCV (RBC) [Entitic vol] 90.9 fL Normal 82.0-98.0 [facility] Comment on above: Order Comment: No: D o not add to previous draw Performed By: #### 5 362, 32361, 53317, 31930 #### [facility] [address] [facility] [place] [address], [facility] Monocytes (Bld) [#/Vol] 0.6 10*3/uL Normal 0.1-1.0 [facility] Comment on above: Order Comment: No: D o not add to previous draw Performed By: #### 5 362, 83393, 29657, 04397 #### [facility] [address] [address], [facility] MONOS 7.5 % Normal 5.0-12.0 [facility] Comment on above: Order Comment: No: D o not add to previous draw Performed By: #### 5 362, 63611, 60128, 85999 #### [facility] [address] [place] [address], [facility] Neutrophils/100 WBC (Bld) 73.2 % High 40.0-72.0 [facility] Comment on above: Order Comment: No: D o not add to previous draw Performed By: #### 5 3629, 92272, 79890, 52472 #### [facility] [address] [place] [address], [place] Nucleated RBC/100 WBC (Bld) [Ratio] 0 % Normal 0-0 [facility] Comment on above: Order Comment: No: D o not add to previous draw Performed By: #### 5 3629, 21994, 53945, 43972 #### [facility] [address] [place] [id number], [place] PLAT CNT 153 10*3/uL Normal 150-400 [facility] Comment on above: Order Comment: No: D o not add to previous draw Performed By: #### 5 3629, 09017, 53184, 36522 #### [facility] [address] [place] [address], [facility] RBC (Bld) [#/Vol] 4.70 10*6/uL Normal 4.20-5.70 [facility] Comment on above: Order Comment: No: D o not add to previous draw Performed By: #### 5 3629, 12294, 20958, 38017 #### [facility] [address] [place] [address], [place] WBC (Bld) [#/Vol] 7.83 10*3/uL Normal 4.00-10.60 [facility] Comment on above: Order Comment: No: D o not add to previous draw Performed By: #### 5 3629, 26674, 08056, 50719 #### [facility] [address] [place] [address], [place] MAGNESIUM BLOODon 06-04-2019 Magnesium [Mass/Vol] 2.0 mg/dL Normal 1.9-2.7 [facility] Comment on above: Order Comment: No: D o not add to previous draw Performed By: #### 5 3629, 36142, 50434, 03440 #### [facility] [address] [place] [address], [place] PHOSPHORUS BLOODon 9 Phosphate [Mass/Vol] 2.4 mg/dL Low 2.5-5.0 [facility] Comment on above: Order Comment: No: D o not add to previous draw Performed By: #### 5 3629, 71476, 72218, 20860 #### [facility] [address] [place] [address], [place] POC GLUCOSE LABon 06-04-2019 Glucose [Mass/Vol] 176 mg/dL High 70-100 [facility] Comment on above: Performed By: #### 5 3629, 85855, 21303, 38659 #### [facility] [address] [place] [address], [place] Glucose [Mass/Vol] 188 mg/dL High 70-100 [facility] Comment on above: Performed By: #### 5 3629, 07910, 57196, 97078 #### [facility] [address] [place] [address], [place] Glucose [Mass/Vol] 162 mg/dL High 70-100 [facility] Comment on above: Performed By: #### 5 3629, 02434, 42700, 03128 #### [facility] [address] [place] [address], [place] UFH HEPARIN ASSAYon 06-04-20 19 UNFRACTIONATED HEPARIN 0.46 IU/mL Normal 0.30-0.70 [facility] Comment on above: Result Comment: Rosanne roxaban and Apixaban will interfere with the anti Xa assay used to monitor UFH and LMWH. Performed By: #### 5 3629, 81893, 14765, 78464 #### [facility] [address] [place] [address], [facility] UNFRACTIONATED HEPARIN 0.42 IU/mL Normal 0.30-0.70 [facility] Comment on above: Result Comment: Rosanne roxaban and Apixaban will interfere with the anti Xa assay used to monitor UFH and LMWH. Performed By: #### 5 3629, 82609, 03299, 71312 #### [facility] [address] [place] [address], [facility] UNFRACTIONATED HEPARIN 0.39 IU/mL Normal 0.30-0.70 [facility] Comment on above: Result Comment: Rosanne roxaban and Apixaban will interfere with the anti Xa assay used to monitor UFH and LMWH. Performed By: #### 5 3629, 94354, 24506, 18252 #### [facility] [address] [place] [address], [facility] UNFRACTIONATED HEPARIN 0.12 IU/mL Critically low 0.30-0.70 [facility] Comment on above: Result Comment: Rosanne roxaban and Apixaban will interfere with the anti Xa assay used to monitor UFH and LMWH. RESULTS CHECKED AND CALLED. ACCURATELY READ BACK BY LEANNE BEATTY RN @ 0022 on 06-04-19 Performed By: #### 5 3629, 69290, 92900, 93996 #### [facility] [address] BASIC METABOLIC PANELon 09-2 Calcium [Mass/Vol] 8.3 mg/dL Low 8.6-10.3 [facility] Comment on above: Order Comment: No: D o not add to previous draw Performed By: #### 3 1046, 50829, 97517, 53642 #### [facility] [address] [place] [address], [facility] Chloride [Moles/Vol] 103 mmol/L Normal 98-107 [facility] Comment on above: Order Comment: No: D o not add to previous draw Performed By: #### 3 1046, 31376, 12567, 84588 #### [facility] [address] [place] [address], [place] CO2 [Moles/Vol] 23 mmol/L Normal 21-31 [facility] Comment on above: Order Comment: No: D o not add to previous draw Performed By: #### 3 1046, 02637, 81679, 63644 #### [facility] [address] [place] [address], [place] Creatinine [Mass/Vol] 0.88 mg/dL Normal 0.70-1.30 [facility] Comment on above: Order Comment: No: D o not add to previous draw Performed By: #### 3 1046, 88087, 68319, 48770 #### [facility] [address] [place] [address], [place] GFR/1.73 sq M predicted among blacks MDRD (S/P/Bld) [Vol rate/Area] mL/min/{1.73_m2} Normal >60 [facility] Comment on above: Order Comment: No: D o not add to previous draw Result Comment: Calc ulation may not be valid for patients over 70 years Performed By: #### 3 1046, 33670, 07153, 75331 #### [facility] [address] [place] [address], [place] GFR/1.73 sq M predicted among non-blacks MDRD (S/P/Bld) [Vol rate/Area] mL/min/{1.73_m2} Normal >60 [facility] Comment on above: Order Comment: No: D o not add to previous draw Result Comment: Calc ulation may not be valid for patients over 70 years Performed By: #### 3 1046, 45024, 17504, 55345 #### [facility] [address] [place] [address], [place] Glucose [Mass/Vol] 152 mg/dL High 70-100 [facility] Comment on above: Order Comment: No: D o not add to previous draw Performed By: #### 3 1046, 85444, 70340, 88490 #### [facility] [address] [facility] [address], [facility] Potassium [Moles/Vol] 4.2 mmol/L Normal 3.5-5.1 [facility] Comment on above: Order Comment: No: D o not add to previous draw Performed By: #### 3 1046, 57859, 03092, 76029 #### [facility] [address] [facility] [address], [facility] Sodium [Moles/Vol] 134 mmol/L Low 136-145 [facility] Comment on above: Order Comment: No: D o not add to previous draw Performed By: #### 3 1046, 64736, 74879, 00906 #### [facility] [address] Urea nitrogen [Mass/Vol] 14 mg/dL Normal 7-25 [facility] Comment on above: Order Comment: No: D o not add to previous draw Performed By: #### 3 1046, 56711, 15285, 53859 #### [facility] [address] CBC W/DIFFon 06-03-2019 ABS BASOPHILS 0.0 10*3/uL Normal 0.0-0.2 The [facility] Comment on above: Order Comment: No: D o not add to previous draw Performed By: #### 3 1046, 53625, 55901, 05970 #### [facility] [address] [place] [address], [facility] ABS IMM GRANS 0.0 10*3/uL Normal 0.0-0.2 The [facility] Comment on above: Order Comment: No: D o not add to previous draw Performed By: #### 3 1046, 44409, 72500, 42539 #### [facility] [address] [place] [address], [facility] ABS NEUTROPHILS 6.9 10*3/uL Normal 1.6-7.6 [facility] Comment on above: Order Comment: No: D o not add to previous draw Performed By: #### 3 1046, 60450, 30826, 82313 #### [facility] [address] [place] [address], [facility] Basophils/100 WBC (Bld) 0.4 % Normal 0.0-1.0 [facility] Comment on above: Order Comment: No: D o not add to previous draw Performed By: #### 3 1046, 05212, 63298, 87332 #### [facility] [address] [place] [address], [facility] Eosinophils (Bld) [#/Vol] 0.1 10*3/uL Normal 0.0-0.5 [facility] Comment on above: Order Comment: No: D o not add to previous draw Performed By: #### 3 1046, 91941, 45529, 21809 #### [facility] [address] [facility] [place] [address], [facility] Eosinophils/100 WBC (Bld) 0.8 % Normal 0.0-6.0 [facility] Comment on above: Order Comment: No: D o not add to previous draw Performed By: #### 3 1046, 48512, 55644, 83917 #### [facility] [address] [place] [address], [place] Erythrocyte distribution width (RBC) [Ratio] 14.3 % Normal 11.5-15.0 [facility] Comment on above: Order Comment: No: D o not add to previous draw Performed By: #### 3 1046, 65636, 18832, 38267 #### [facility] [address] [place] [address], [place] Hematocrit (Bld) [Volume fraction] 45.0 % Normal 39.0-50.0 [facility] Comment on above: Order Comment: No: D o not add to previous draw Performed By: #### 3 1046, 21321, 43682, 43074 #### [facility] [address] [place] [address], [facility] Hemoglobin (Bld) [Mass/Vol] 14.5 g/dL Normal 13.0-17.0 [facility] Comment on above: Order Comment: No: D o not add to previous draw Performed By: #### 3 1046, 52892, 66888, 00263 #### [facility] [address] [facility] [address], [facility] IMM PLATELET FRAC 3.3 % Normal 0.8-6.3 The [facility] Comment on above: Order Comment: No: D o not add to previous draw Performed By: #### 3 1046, 86505, 19094, 92142 #### [facility] [address] [facility] [address], [facility] IMMATURE GRANS 0.3 % Normal 0.0-1.0 The [facility] Comment on above: Order Comment: No: D o not add to previous draw Performed By: #### 3 1046, 44754, 41597, 92323 #### [facility] [address] [place] [address], [facility] Lymphocytes (Bld) [#/Vol] 1.2 10*3/uL Normal 1.2-4.0 [facility] Comment on above: Order Comment: No: D o not add to previous draw Performed By: #### 3 1046, 53239, 90775, 93816 #### [facility] [address] [place] [address], [facility] Lymphocytes/100 WBC (Bld) 13.5 % Low 20.0-45.0 [facility] Comment on above: Order Comment: No: D o not add to previous draw Performed By: #### 3 1046, 61919, 35568, 90529 #### [facility] [address] [place] [address], [facility] MCH (RBC) [Entitic mass] 29.1 pg Normal 27.0-33.0 [facility] Comment on above: Order Comment: No: D o not add to previous draw Performed By: #### 3 1046, 08078, 61036, 36668 #### [facility] [address] [place] [address], [facility] MCHC (RBC) [Mass/Vol] 32.2 g/dL Normal 32.0-35.0 [facility] Comment on above: Order Comment: No: D o not add to previous draw Performed By: #### 3 1046, 12814, 67470, 07027 #### [facility] [address] [place] [address], [facility] MCV (RBC) [Entitic vol] 90.2 fL Normal 82.0-98.0 [facility] Comment on above: Order Comment: No: D o not add to previous draw Performed By: #### 3 1046, 60403, 97909, 31277 #### [facility] [address] [place] [address], [facility] Monocytes (Bld) [#/Vol] 0.7 10*3/uL Normal 0.1-1.0 [facility] Comment on above: Order Comment: No: D o not add to previous draw Performed By: #### 3 1046, 97937, 23024, 73144 #### [facility] [address] [place] [address], [facility] MONOS 7.8 % Normal 5.0-12.0 [facility] Comment on above: Order Comment: No: D o not add to previous draw Performed By: #### 3 1046, 45859, 20011, 08547 #### [facility] [address] [place] [address], [place] Neutrophils/100 WBC (Bld) 77.2 % High 40.0-72.0 [facility] Comment on above: Order Comment: No: D o not add to previous draw Performed By: #### 3 1046, 03733, 98567, 93292 #### [facility] [address] Nucleated RBC/100 WBC (Bld) [Ratio] 0 % Normal 0-0 [facility] Comment on above: Order Comment: No: D o not add to previous draw Performed By: #### 3 1046, 63801, 47454, 83611 #### [facility] [address] [place] [address], [facility] PLAT CNT 134 10*3/uL Low 150-400 [facility] Comment on above: Order Comment: No: D o not add to previous draw Performed By: #### 3 1046, 58965, 03556, 27700 #### [facility] [address] [place] [address], [facility] RBC (Bld) [#/Vol] 4.99 10*6/uL Normal 4.20-5.70 [facility] Comment on above: Order Comment: No: D o not add to previous draw Performed By: #### 3 1046, 26631, 14475, 37998 #### [facility] [address] [facility] [address], [facility] WBC (Bld) [#/Vol] 8.90 10*3/uL Normal 4.00-10.60 [facility] Comment on above: Order Comment: No: D o not add to previous draw Performed By: #### 3 1046, 00458, 78702, 49765 #### [facility] [address] [place] [address], [facility] Cardiovascular Lab Reporton 06-03-2019 Cardiovascular Lab Report [facility] Patient Name: Harrison [facility] MR #: [id number] Physician: Willie Madrigal [facility] Service Date: 06/02/2019 Division of Birthdate: 1945 Cardiology Room #: [id number] Adult Cardiovascular Services [facility] [address] [place] [address] Cardiovascular Laboratory Report INDICATION: The patient is [...] signed informed consent. He was brought to label remover in a fasting state. The right wrist area was prepped and draped in usual fashion. Modified Mason's test was favorable. Access in the right radial artery was obtained. Using micropuncture technique, a 6-Macanese x 11 cm Hydrophilic sheath was advanced. Verapamil was given through the sheath and heparin was administered intravenously. Bilateral selective coronary angiography was then performed using 6-Macanese JL3.5 and JR4 diagnostic catheters. Note that initial catheter advancement over the brachial area was facilitated using an angled Glidewire. Catheters were removed. Therapeutic ACT was confirmed during the rest of the procedure. A 6-Macanese JR4 guiding catheter was advanced and used [...] atmospheres and post dilated using NC Quantum Plano 3.5 x 15 mm noncompliant balloon inflated at 18 atmospheres throughout the length of the stented segment. Additional postdilatation using NC Quantum Plano 4.0 x 8 mm noncompliant balloon was [...] Del Cid M.D. Date Trans: 06/03/2019 04:36 A/helenao [id number] cc: Benedict Vallecillo M.D. [address] [facility] [address] Normal [facility] MAGNESIUM BLOODon 06-03-2019 Magnesium [Mass/Vol] 1.9 mg/dL Normal 1.9-2.7 [facility] Comment on above: Order Comment: No: D o not add to previous draw Performed By: #### 3 1046, 43787, 99673, 92492 #### [facility] [address] [place] [address], [place] PHOSPHORUS BLOODon 9 Phosphate [Mass/Vol] 2.3 mg/dL Low 2.5-5.0 [facility] Comment on above: Order Comment: No: D o not add to previous draw Performed By: #### 3 1046, 79268, 30725, 21537 #### [facility] [address] [place] [address], [place] POC GLUCOSE LABon 06-03-2019 Glucose [Mass/Vol] 175 mg/dL High 70-100 [facility] Comment on above: Performed By: #### 5 8459, 13986, 03761, 69919 #### [facility] [address] [place] [address], [place] Glucose [Mass/Vol] 223 mg/dL High 70-100 [facility] Comment on above: Performed By: #### 5 3629, 24439, 62257, 53259 #### [facility] [address] [place] [address], [place] Glucose [Mass/Vol] 156 mg/dL High 70-100 [facility] Comment on above: Performed By: #### 5 3629, 70521, 43960, 60725 #### [facility] [address] UFH HEPARIN ASSAYon 06-03-20 19 UNFRACTIONATED HEPARIN 0.20 IU/mL Low 0.30-0.70 [facility] Comment on above: Result Comment: Benedicta roxaban and Apixaban will interfere with the anti Xa assay used to monitor UFH and LMWH. Performed By: #### 5 3629, 02740, 83434, 66194 #### [facility] [address] [facility] [address] UNFRACTIONATED HEPARIN <0.10 Critically low 0.30-0.70 [facility] Comment on above: Result Comment: Benedicta roxaban and Apixaban will interfere with the anti Xa assay used to monitor UFH and LMWH. Result called to TRAVIS ANDREW 0737 Performed By: #### 5 3629, 73263, 11868, 89860 #### [facility] [address] [facility] [address] BASIC METABOLIC PANELon 05-15 Calcium [Mass/Vol] 8.4 mg/dL Low 8.6-10.3 [facility] Comment on above: Order Comment: No: D o not add to previous draw Performed By: #### 3 1046, 42313, 67878, 10682 #### [facility] [address] [place] [address], [facility] Chloride [Moles/Vol] 103 mmol/L Normal 98-107 [facility] Comment on above: Order Comment: No: D o not add to previous draw Performed By: #### 3 1046, 96483, 13725, 24406 #### [facility] [address] [place] [address], [facility] CO2 [Moles/Vol] 26 mmol/L Normal 21-31 [facility] Comment on above: Order Comment: No: D o not add to previous draw Performed By: #### 3 1046, 88275, 90503, 86364 #### [facility] [address] [place] [address], [place] Creatinine [Mass/Vol] 1.07 mg/dL Normal 0.70-1.30 [facility] Comment on above: Order Comment: No: D o not add to previous draw Performed By: #### 3 1046, 08788, 40612, 04380 #### [facility] [address] [place] [address], [place] GFR/1.73 sq M predicted among blacks MDRD (S/P/Bld) [Vol rate/Area] mL/min/{1.73_m2} Normal >60 [facility] Comment on above: Order Comment: No: D o not add to previous draw Result Comment: Calc ulation may not be valid for patients over 70 years Performed By: #### 3 1046, 33810, 05575, 21284 #### [facility] [address] [place] [address], [place] GFR/1.73 sq M predicted among non-blacks MDRD (S/P/Bld) [Vol rate/Area] mL/min/{1.73_m2} Normal >60 [facility] Comment on above: Order Comment: No: D o not add to previous draw Result Comment: Calc ulation may not be valid for patients over 70 years Performed By: #### 3 1046, 47785, 50443, 68840 #### [facility] [address] [place] [address], [place] Glucose [Mass/Vol] 155 mg/dL High 70-100 [facility] Comment on above: Order Comment: No: D o not add to previous draw Performed By: #### 3 1046, 08829, 42964, 80924 #### [facility] [address] [place] [address], [place] Potassium [Moles/Vol] 4.7 mmol/L Normal 3.5-5.1 [facility] Comment on above: Order Comment: No: D o not add to previous draw Performed By: #### 3 1046, 04049, 79717, 36626 #### [facility] [address] [place] [address], [facility] Sodium [Moles/Vol] 135 mmol/L Low 136-145 [facility] Comment on above: Order Comment: No: D o not add to previous draw Performed By: #### 3 1046, 94525, 94840, 47698 #### [facility] [address] [place] [id number], [facility] Urea nitrogen [Mass/Vol] 17 mg/dL Normal 7-25 [facility] Comment on above: Order Comment: No: D o not add to previous draw Performed By: #### 3 1046, 42237, 21003, 43345 #### [facility] [address] [place] [id number], [facility] CBC COMPLETE BLOOD COUNTon 0 - Erythrocyte distribution width (RBC) [Ratio] 14.3 % Normal 11.5-15.0 [facility] Comment on above: Order Comment: No: D o not add to previous draw Performed By: #### 3 1046, 81662, 51526, 05250 #### [facility] [address] [place] [id number], [facility] Hematocrit (Bld) [Volume fraction] 46.3 % Normal 39.0-50.0 [facility] Comment on above: Order Comment: No: D o not add to previous draw Performed By: #### 3 1046, 41473, 18314, 07179 #### [facility] [address] [place] [address], [facility] Hemoglobin (Bld) [Mass/Vol] 14.7 g/dL Normal 13.0-17.0 [facility] Comment on above: Order Comment: No: D o not add to previous draw Performed By: #### 3 1046, 39142, 16303, 42918 #### [facility] [address] [place] [address], [facility] IMM PLATELET FRAC 3.4 % Normal 0.8-6.3 [facility] Comment on above: Order Comment: No: D o not add to previous draw Performed By: #### 3 1046, 05737, 55582, 32862 #### [facility] [address] [place] [address], [facility] MCH (RBC) [Entitic mass] 29.0 pg Normal 27.0-33.0 [facility] Comment on above: Order Comment: No: D o not add to previous draw Performed By: #### 3 1046, 96366, 48080, 19621 #### [facility] [address] [facility] [place] [address], [facility] MCHC (RBC) [Mass/Vol] 31.7 g/dL Low 32.0-35.0 [facility] Comment on above: Order Comment: No: D o not add to previous draw Performed By: #### 3 1046, 36081, 45118, 60625 #### [facility] [address] [facility] [place] [address], [facility] MCV (RBC) [Entitic vol] 91.3 fL Normal 82.0-98.0 [facility] Comment on above: Order Comment: No: D o not add to previous draw Performed By: #### 3 1046, 77426, 54164, 01329 #### [facility] [address] [facility] [place] [id number], [facility] Nucleated RBC/100 WBC (Bld) [Ratio] 0 % Normal 0-0 [facility] Comment on above: Order Comment: No: D o not add to previous draw Performed By: #### 3 1046, 75179, 90032, 35583 #### [facility] [address] [place] [address], [facility] PLAT CNT 125 10*3/uL Low 150-400 [facility] Comment on above: Order Comment: No: D o not add to previous draw Performed By: #### 3 1046, 62933, 42326, 94925 #### [facility] [address] [place] [address], [facility] RBC (Bld) [#/Vol] 5.07 10*6/uL Normal 4.20-5.70 [facility] Comment on above: Order Comment: No: D o not add to previous draw Performed By: #### 3 1046, 56122, 52771, 49496 #### [facility] [address] [place] [address], [facility] WBC (Bld) [#/Vol] 8.85 10*3/uL Normal 4.00-10.60 [facility] Comment on above: Order Comment: No: D o not add to previous draw Performed By: #### 3 1046, 56807, 22843, 29679 #### [facility] [address] Erythrocyte distribution width (RBC) [Ratio] 14.0 % Normal 11.5-15.0 [facility] Comment on above: Order Comment: No: D o not add to previous draw Performed By: #### 3 1046, 95995, 91237, 55654 #### [facility] [address] [place] [address], [facility] Hematocrit (Bld) [Volume fraction] 45.2 % Normal 39.0-50.0 [facility] Comment on above: Order Comment: No: D o not add to previous draw Performed By: #### 3 1046, 12503, 26561, 31646 #### [facility] [address] [place] [address], [facility] Hemoglobin (Bld) [Mass/Vol] 14.2 g/dL Normal 13.0-17.0 [facility] Comment on above: Order Comment: No: D o not add to previous draw Performed By: #### 3 1046, 18254, 04567, 66146 #### [facility] [address] [place] [address], [facility] IMM PLATELET FRAC 3.8 % Normal 0.8-6.3 [facility] Comment on above: Order Comment: No: D o not add to previous draw Performed By: #### 3 1046, 52508, 14617, 99089 #### [facility] [address] [place] [address], [facility] MCH (RBC) [Entitic mass] 28.9 pg Normal 27.0-33.0 [facility] Comment on above: Order Comment: No: D o not add to previous draw Performed By: #### 3 1046, 54449, 16810, 43607 #### [facility] [address] [place] [address], [facility] MCHC (RBC) [Mass/Vol] 31.4 g/dL Low 32.0-35.0 [facility] Comment on above: Order Comment: No: D o not add to previous draw Performed By: #### 3 1046, 06833, 28728, 91815 #### [facility] [address] [place] [address], [facility] MCV (RBC) [Entitic vol] 92.1 fL Normal 82.0-98.0 [facility] Comment on above: Order Comment: No: D o not add to previous draw Performed By: #### 3 1046, 54830, 07701, 55678 #### [facility] [address] [facility] [place] [address], [facility] Nucleated RBC/100 WBC (Bld) [Ratio] 0 % Normal 0-0 [facility] Comment on above: Order Comment: No: D o not add to previous draw Performed By: #### 3 1046, 14417, 18773, 07378 #### [facility] PLAT CNT 119 10*3/uL Low 150-400 [facility] Comment on above: Order Comment: No: D o not add to previous draw Performed By: #### 3 1046, 27243, 00965, 27890 #### [address] RBC (Bld) [#/Vol] 4.91 10*6/uL Normal 4.20-5.70 [facility] Comment on above: Order Comment: No: D o not add to previous draw Performed By: #### 3 1046, 42147, 85795, 33492 #### [address] WBC (Bld) [#/Vol] 8.36 10*3/uL Normal 4.00-10.60 [facility] Comment on above: Order Comment: No: D o not add to previous draw Performed By: #### 3 1046, 56666, 18461, 55453 #### [address] Cardiovascular Lab Reporton 06-02-2019 Cardiovascular Lab Report [facility] Patient Name: [place] [facility] MR #: [id number] Physician: Willie Madrigal of [facility] Service Date: 06/01/2019 Division of Birthdate: 1945 Cardiology Room #: [id number] Adult Cardiovascular Services [place] [address] Cardiovascular Laboratory Report INDICATION: The patient is [...] informed consent. He was brought to the label remover in a fasting state. The right neck area was prepped and draped in usual fashion. Using ultrasound guidance and micropuncture technique, 2 separate accesses were obtained in the right internal jugular vein and two 6-Macanese x 11 cm sheaths were placed. A 6-Macanese Cespedes catheter was used for right heart [...] Del Cid M.D. Date Trans: 06/02/2019 08:24 A/elías [id number] cc: Benedict Vallecillo M.D. [address] [facility] [address] [place] [facility] Cardiovascular Lab Report [facility] Patient Name: [place] [facility] MR #: [id number] Physician: Willei Barriga Department of [facility] Service Date: 06/01/2019 Division of Birthdate: 1945 Cardiology Room #: [id number] Adult Cardiovascular Services [place] [address] Cardiovascular Laboratory Report CLINICAL PRESENTATION: The patient [...] P/Claudia Garcia MD Date Trans: 06/02/2019 08:22 Trudi/elías [id number] cc: Benedict Vallecillo M.D. [address] [facility] [address] Normal [facility] FIBRINOGENon 06-02-2019 FIBRINOGEN 404 mg/dL Normal 150-425 [facility] Comment on above: Order Comment: No: D o not add to previous draw Performed By: #### 3 1046, 96580, 11128, 25665 #### [facility] [address] [place] [address], [facility] FIBRINOGEN 374 mg/dL Normal 150-425 [facility] Comment on above: Order Comment: No: D o not add to previous draw Performed By: #### 3 1046, 13270, 45043, 73224 #### [facility] [address] [place] [address], [place] MAGNESIUM BLOODon 06-02-2019 Magnesium [Mass/Vol] 2.0 mg/dL Normal 1.9-2.7 [facility] Comment on above: Order Comment: No: D o not add to previous draw Performed By: #### 3 1046, 36170, 66858, 56171 #### [facility] [address] [place] [address], [facility] PHOSPHORUS BLOODon 9 Phosphate [Mass/Vol] 3.3 mg/dL Normal 2.5-5.0 [facility] Comment on above: Order Comment: No: D o not add to previous draw Performed By: #### 3 1046, 00206, 94658, 22849 #### [facility] [address] [place] [address], [facility] POC GLUCOSE LABon 06-02-2019 Glucose [Mass/Vol] 144 mg/dL High 70-100 [facility] Comment on above: Performed By: #### 3 1046, 03743, 02382, 15289 #### [facility] [address] [place] [address], [facility] Glucose [Mass/Vol] 203 mg/dL High 70-100 [facility] Comment on above: Performed By: #### 3 1046, 49450, 30361, 00077 #### [facility] [address] [place] [address], [facility] Glucose [Mass/Vol] 141 mg/dL High 70-100 [facility] Comment on above: Performed By: #### 3 1046, 55223, 01570, 01756 #### [facility] [address] [place] [address], [facility] TROPONIN-Ion 06-02-2019 Troponin I.cardiac [Mass/Vol] 0.17 ng/mL Critically high 0.00-0.04 [facility] Comment on above: Order Comment: No: D o not add to previous draw Result Comment: M-LA EVIOUS CRITICAL RESULT REFERENCE RANGES: 0.00 - 0.04 ng/ml NORMAL 0.05 - 0.50 ng/ml INDETERMINATE > 0.50 ng/ml CONSISTENT WITH AN M.I. Performed By: #### 3 1046, 66173, 67072, 78136 #### [facility] [address] [place] [address], [facility] UFH HEPARIN ASSAYon 09-19-20 19 UNFRACTIONATED HEPARIN 0.41 IU/mL Normal 0.30-0.70 [facility] Comment on above: Result Comment: Benedicta roxaban and Apixaban will interfere with the anti Xa assay used to monitor UFH and LMWH. Performed By: #### 3 1046, 02670, 31300, 93002 #### [facility] [address] [place] [address], [facility] UNFRACTIONATED HEPARIN >1.00 Critically high 0.30-0.70 [facility] Comment on above: Order Comment: This order is a replacement of the rejected order with accession [id number]. Result Comment: Benedicta roxaban and Apixaban will interfere with the anti Xa assay used to monitor UFH and LMWH. PATIENT ON HEPARING FROM CAR MANAGER, ELENITA VALENTE R.N. STATES NO WHERE TO DRAW THIS PATIENT EXCEPT ABOVE AN IV SITE, AFTER IV HAS BEEN TURNED OFF FOR ONE HALF HOUR. RESULTS MAY NOT BE ACCURATE UFH 1.15 Performed By: #### 3 1046, 10182, 03855, 88455 #### [facility] [address] [place] [address], [facility] UNFRACTIONATED HEPARIN 0.20 IU/mL Low 0.30-0.70 [facility] Comment on above: Result Comment: Rosanne roxaban and Apixaban will interfere with the anti Xa assay used to monitor UFH and LMWH. Performed By: #### 3 1046, 36401, 86222, 40102 #### [facility] [address] [place] [address], [facility] APTTon 06-01-2019 aPTT Coag (Bld) [Time] 60.4 s High 25.0-35.0 [facility] Comment on above: Order Comment: [...] THIS PURPOSE. Performed By: #### 3 1046, 38157, 88118, 54898 #### [facility] [address] [place] [address], [facility] BASIC METABOLIC PANELon 05-15 Calcium [Mass/Vol] 8.7 mg/dL Normal 8.6-10.3 [facility] Comment on above: Order Comment: No: D o not add to previous draw Performed By: #### 3 1046, 86289, 93203, 57857 #### [facility] [address] [place] [address], [facility] Chloride [Moles/Vol] 103 mmol/L Normal 98-107 [facility] Comment on above: Order Comment: No: D o not add to previous draw Performed By: #### 3 1046, 35543, 71463, 68479 #### [facility] [address] [place] [address], [facility] CO2 [Moles/Vol] 26 mmol/L Normal 21-31 [facility] Comment on above: Order Comment: No: D o not add to previous draw Performed By: #### 3 1046, 36543, 50180, 82676 #### [facility] [address] [place] [address], [facility] Creatinine [Mass/Vol] 1.19 mg/dL Normal 0.70-1.30 [facility] Comment on above: Order Comment: No: D o not add to previous draw Performed By: #### 3 1046, 30604, 90505, 30947 #### [facility] [address] [place] [address], [facility] GFR/1.73 sq M predicted among blacks MDRD (S/P/Bld) [Vol rate/Area] mL/min/{1.73_m2} Normal >60 [facility] Comment on above: Order Comment: No: D o not add to previous draw Result Comment: Calc ulation may not be valid for patients over 70 years Performed By: #### 3 1046, 94124, 46663, 89565 #### [facility] [address] [place] [address], [facility] GFR/1.73 sq M predicted among non-blacks MDRD (S/P/Bld) [Vol rate/Area] 60 ml/min/1.73sq m Abnormal >60 [facility] Comment on above: Order Comment: No: D o not add to previous draw Result Comment: Calc ulation may not be valid for patients over 70 years Performed By: #### 3 1046, 89680, 90788, 40045 #### [facility] [address] [place] [address], [place] Glucose [Mass/Vol] 144 mg/dL High 70-100 [facility] Comment on above: Order Comment: No: D o not add to previous draw Performed By: #### 3 1046, 50139, 32430, 66131 #### [facility] [address] [place] [address], [place] Potassium [Moles/Vol] 4.6 mmol/L Normal 3.5-5.1 [facility] Comment on above: Order Comment: No: D o not add to previous draw Performed By: #### 3 1046, 28990, 28554, 76230 #### [facility] [address] [place] [address], [place] Sodium [Moles/Vol] 137 mmol/L Normal 136-145 [facility] Comment on above: Order Comment: No: D o not add to previous draw Performed By: #### 3 1046, 47513, 59409, 63375 #### [facility] [address] [place] [address], [place] Urea nitrogen [Mass/Vol] 21 mg/dL Normal 7-25 [facility] Comment on above: Order Comment: No: D o not add to previous draw Performed By: #### 3 1046, 66490, 60217, 58733 #### [facility] [address] [place] [id number], [facility] CBC COMPLETE BLOOD COUNTon 06-01-2019 Erythrocyte distribution width (RBC) [Ratio] 14.3 % Normal 11.5-15.0 [facility] Comment on above: Order Comment: No: D o not add to previous draw Performed By: #### 3 1046, 12201, 05509, 51011 #### [facility] [address] [place] [address], [facility] Hematocrit (Bld) [Volume fraction] 48.1 % Normal 39.0-50.0 [facility] Comment on above: Order Comment: No: D o not add to previous draw Performed By: #### 3 1046, 99095, 34028, 62981 #### [facility] [address] [place] [address], [facility] Hemoglobin (Bld) [Mass/Vol] 15.1 g/dL Normal 13.0-17.0 [facility] Comment on above: Order Comment: No: D o not add to previous draw Performed By: #### 3 1046, 22746, 93387, 01086 #### [facility] [address] [place] [address], [facility] MCH (RBC) [Entitic mass] 28.9 pg Normal 27.0-33.0 [facility] Comment on above: Order Comment: No: D o not add to previous draw Performed By: #### 3 1046, 44618, 02271, 90450 #### [facility] [address] [place] [address], [place] MCHC (RBC) [Mass/Vol] 31.4 g/dL Low 32.0-35.0 [facility] Comment on above: Order Comment: No: D o not add to previous draw Performed By: #### 3 1046, 68323, 07810, 43382 #### [facility] [address] [place] [address], [place] MCV (RBC) [Entitic vol] 92.1 fL Normal 82.0-98.0 [facility] Comment on above: Order Comment: No: D o not add to previous draw Performed By: #### 3 1046, 41040, 59020, 92833 #### [facility] [address] [place] [address], [facility] Nucleated RBC/100 WBC (Bld) [Ratio] 0 % Normal 0-0 [facility] Comment on above: Order Comment: No: D o not add to previous draw Performed By: #### 3 1046, 73173, 06704, 62367 #### [facility] [address] [place] [address], [facility] PLAT CNT 137 10*3/uL Low 150-400 [facility] Comment on above: Order Comment: No: D o not add to previous draw Performed By: #### 3 1046, 89681, 79243, 61746 #### [facility] [address] [place] [address], [facility] RBC (Bld) [#/Vol] 5.22 10*6/uL Normal 4.20-5.70 [facility] Comment on above: Order Comment: No: D o not add to previous draw Performed By: #### 3 1046, 82262, 59514, 42763 #### [facility] [address] [place] [address], [facility] WBC (Bld) [#/Vol] 10.11 10*3/uL Normal 4.00-10.60 [facility] Comment on above: Order Comment: No: D o not add to previous draw Performed By: #### 3 1046, 61698, 59604, 31522 #### [facility] [address] [place] [address], [facility] Erythrocyte distribution width (RBC) [Ratio] 14.4 % Normal 11.5-15.0 [facility] Comment on above: Order Comment: No: D o not add to previous draw Performed By: #### 3 1046, 56642, 21299, 89697 #### [facility] [address] [place] [address], [facility] Hematocrit (Bld) [Volume fraction] 45.3 % Normal 39.0-50.0 [facility] Comment on above: Order Comment: No: D o not add to previous draw Performed By: #### 3 1046, 56917, 27189, 90220 #### [facility] [address] [place] [address], [facility] Hemoglobin (Bld) [Mass/Vol] 14.3 g/dL Normal 13.0-17.0 [facility] Comment on above: Order Comment: No: D o not add to previous draw Performed By: #### 3 1046, 27361, 09188, 15604 #### [facility] [address] [place] [address], [facility] IMM PLATELET FRAC 3.3 % Normal 0.8-6.3 [facility] Comment on above: Order Comment: No: D o not add to previous draw Performed By: #### 3 1046, 90534, 08730, 22744 #### [facility] [address] [facility] [address], [facility] MCH (RBC) [Entitic mass] 29.1 pg Normal 27.0-33.0 [facility] Comment on above: Order Comment: No: D o not add to previous draw Performed By: #### 3 1046, 16933, 49010, 72490 #### [facility] [address] [place] [address], [facility] MCHC (RBC) [Mass/Vol] 31.6 g/dL Low 32.0-35.0 [facility] Comment on above: Order Comment: No: D o not add to previous draw Performed By: #### 3 1046, 46699, 31914, 45469 #### [facility] [address] MCV (RBC) [Entitic vol] 92.1 fL Normal 82.0-98.0 [facility] Comment on above: Order Comment: No: D o not add to previous draw Performed By: #### 3 1046, 07674, 65646, 61931 #### [facility] [address] [place] [id number], [facility] Nucleated RBC/100 WBC (Bld) [Ratio] 0 % Normal 0-0 [facility] Comment on above: Order Comment: No: D o not add to previous draw Performed By: #### 3 1046, 96475, 97725, 25868 #### [facility] [address] [place] [address], [facility] PLAT CNT 137 10*3/uL Low 150-400 [facility] Comment on above: Order Comment: No: D o not add to previous draw Performed By: #### 3 1046, 57087, 27021, 99712 #### [facility] [address] [place] [address], [facility] RBC (Bld) [#/Vol] 4.92 10*6/uL Normal 4.20-5.70 [facility] Comment on above: Order Comment: No: D o not add to previous draw Performed By: #### 3 1046, 63095, 05949, 27092 #### [facility] [address] [place] [address], [facility] WBC (Bld) [#/Vol] 9.17 10*3/uL Normal 4.00-10.60 [facility] Comment on above: Order Comment: No: D o not add to previous draw Performed By: #### 3 1046, 65152, 79882, 59569 #### [facility] [address] [place] [id number], [facility] Erythrocyte distribution width (RBC) [Ratio] 14.4 % Normal 11.5-15.0 [facility] Comment on above: Order Comment: No: D o not add to previous draw Performed By: #### 3 1046, 50339, 86496, 36416 #### [facility] [address] [place] [id number], [facility] Hematocrit (Bld) [Volume fraction] 46.9 % Normal 39.0-50.0 [facility] Comment on above: Order Comment: No: D o not add to previous draw Performed By: #### 3 1046, 48744, 10912, 58780 #### [facility] [address] [place] [address], [facility] Hemoglobin (Bld) [Mass/Vol] 14.6 g/dL Normal 13.0-17.0 [facility] Comment on above: Order Comment: No: D o not add to previous draw Performed By: #### 3 1046, 11193, 45275, 71856 #### [facility] [address] [place] [address], [facility] MCH (RBC) [Entitic mass] 28.7 pg Normal 27.0-33.0 [facility] Comment on above: Order Comment: No: D o not add to previous draw Performed By: #### 3 1046, 74373, 58468, 01101 #### [facility] [address] [place] [address], [facility] MCHC (RBC) [Mass/Vol] 31.1 g/dL Low 32.0-35.0 [facility] Comment on above: Order Comment: No: D o not add to previous draw Performed By: #### 3 1046, 86795, 65605, 75443 #### [facility] [address] [place] [address], [facility] MCV (RBC) [Entitic vol] 92.3 fL Normal 82.0-98.0 [facility] Comment on above: Order Comment: No: D o not add to previous draw Performed By: #### 3 1046, 44424, 93616, 77344 #### [facility] [address] Nucleated RBC/100 WBC (Bld) [Ratio] 0 % Normal 0-0 [facility] Comment on above: Order Comment: No: D o not add to previous draw Performed By: #### 3 1046, 16008, 75868, 85423 #### [facility] [address] [place] [address], [facility] PLAT CNT 149 10*3/uL Low 150-400 [facility] Comment on above: Order Comment: No: D o not add to previous draw Performed By: #### 3 1046, 55521, 38663, 32806 #### [facility] [address] [facility]. [address] RBC (Bld) [#/Vol] 5.08 10*6/uL Normal 4.20-5.70 [facility] Comment on above: Order Comment: No: D o not add to previous draw Performed By: #### 3 1046, 05107, 94261, 91515 #### [facility] [address] [facility]. [address] WBC (Bld) [#/Vol] 8.84 10*3/uL Normal 4.00-10.60 [facility] Comment on above: Order Comment: No: D o not add to previous draw Performed By: #### 3 1046, 72972, 80271, 08671 #### [facility] [address] [facility] [place] [address], [facility] CEAon 06-01-2019 CEA 0.6 ng/mL Normal 0.0-3.0 [facility] Comment on above: Order Comment: No: D o not add to previous draw Performed By: #### 3 1046, 43590, 18973, 46081 #### [facility] [address] ABDOMEN AND PELVIS WO CON TRASTon 06-01-2019 CT ABDOMEN AND PELVIS WO CONTRAST [facility] Department of Radiology [address] [place] [address] ======== Patient Name: SERGE SHINE : 1945 Sex: M Age: Race: White Pt. Location: [id number] Patient Status: I Ordered Date: 06/01/2019 7:25:00 [...] severe atherosclerotic calcification infrarenally and into the chitina iliac arteries. There is a infrarenal abdominal [...] grafts and severe atherosclerotic calcification of the chitina iliac arteries. 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 Approved by:Gui Coello on 06/01/2019 9:32 PM EDT. I, Lyndsey Rojas, have reviewed the images and report and concur with these findings. Electronically signed by:Lyndsey Rojas. Transcribed by: [email or web address], User Resident: GUI COELLO Electronically Signed by: LYNDSEY ROJAS @ 06/02/2019 12:31 PM I personally read this/these film(s) with this resident Normal [facility] Comment on above: Order Comment: R/O R etroperitoneal Mass/Abscess, r/o retroperitoneal bleed s/p tPA CT CHEST WO CONTRASTon 06-01 CT CHEST WO CONTRAST [facility] Department of Radiology [address] [place] [id number] ======== Patient Name: SERGE SHINE : 1945 Sex: M Age: Race: White Pt. Location: [id number] Patient Status: I Ordered Date: 06/01/2019 7:10:00 [...] findings. Electronically signed by:Franklin Molina. Transcribed by: [email or web address], User Resident: GUI COELLO Electronically Signed by: FRANKLIN MOLINA @ 06/02/2019 11:44 AM I personally read this/these film(s) with this resident Normal [facility] Comment on above: Order Comment: Other , r/o bleed post TPA FIBRINOGENon 06-01-2019 FIBRINOGEN 386 mg/dL Normal 150-425 [facility] Comment on above: Order Comment: No: D o not add to previous draw Performed By: #### 3 1046, 25620, 63023, 46011 #### [facility] [address] [facility] [place] [address], [facility] MAGNESIUM BLOODon 06-01-2019 Magnesium [Mass/Vol] 2.1 mg/dL Normal 1.9-2.7 [facility] Comment on above: Order Comment: No: D o not add to previous draw Performed By: #### 3 1046, 98526, 34306, 42342 #### [facility] [address] [place] [address], [place] PHOSPHORUS BLOODon 9 Phosphate [Mass/Vol] 3.3 mg/dL Normal 2.5-5.0 [facility] Comment on above: Order Comment: No: D o not add to previous draw Performed By: #### 3 1046, 02090, 58293, 21697 #### [facility] [address] [place] [address], [place] POC GLUCOSE LABon 06-01-2019 Glucose [Mass/Vol] 207 mg/dL High 70-100 [facility] Comment on above: Performed By: #### 3 1046, 26335, 86486, 41673 #### [facility] [address] [place] [address], [place] Glucose [Mass/Vol] 207 mg/dL High 70-100 [facility] Comment on above: Performed By: #### 3 1046, 42488, 61495, 60687 #### [facility] [address] [place] [address], [place] Glucose [Mass/Vol] 171 mg/dL High 70-100 [facility] Comment on above: Performed By: #### 3 1046, 31387, 91674, 54691 #### [facility] [address] [place] [address], [place] PROTHROMBIN TIMEon 9 INR Coag (PPP) [Relative time] 1.20 {INR} High 0.91-1.16 [facility] Comment on above: Order Comment: [...] CHEST 1995;108:231S-246S. Performed By: #### 3 1046, 84114, 58600, 02400 #### [facility] [address] PT Coag (PPP) [Time] 15.3 s High 12.3-14.8 [facility] Comment on above: Order Comment: No: D o not add to previous draw Result Comment: ALL RESULTS MUST BE INTERPRETED WITH RESPECT TO BLOOD DRAWING ARTIFACT OR DILUTION ERROR OF ANTICOAGULANT AT THE TIME OF SAMPLING. Performed By: #### 3 1046, 37910, 15601, 60147 #### [facility] [address] [place] [employer] [address] TROPONIN-Ion 06-01-2019 Troponin I.cardiac [Mass/Vol] 0.22 ng/mL Critically high 0.00-0.04 [facility] Comment on above: Order Comment: No: D o not add to previous draw Result Comment: M-LA EVIOUS CRITICAL RESULT REFERENCE RANGES: 0.00 - 0.04 ng/ml NORMAL 0.05 - 0.50 ng/ml INDETERMINATE > 0.50 ng/ml CONSISTENT WITH AN M.I. Performed By: #### 3 1046, 37620, 63451, 42275 #### [facility] [address] [facility] [address], [facility] TYPE AND SCREENon 06-01-2019 ABO INTERPRETATION O Normal [facility] Comment on above: Performed By: #### 3 1046, 18048, 03031, 69608 #### [facility] [address] [place] [address], [facility] RH INTERPRETATION Positive Normal [facility] Comment on above: Performed By: #### 3 1046, 49133, 42589, 92661 #### [facility] [address] [place] [address], [facility] UFH HEPARIN ASSAYon 06-01-20 19 UNFRACTIONATED HEPARIN <0.10 Critically low 0.30-0.70 [facility] Comment on above: Result Comment: Benedicta roxaban and Apixaban will interfere with the anti Xa assay used to monitor UFH and LMWH. RESULTS CHECKED AND CALLED. ACCURATELY READ BACK BY TAYE MEYERS RN @ 6204 Performed By: #### 3 1046, 85443, 80134, 09109 #### [facility] [address] [place] [address], [facility] UNFRACTIONATED HEPARIN <0.10 Critically low 0.30-0.70 [facility] Comment on above: Order Comment: No: D o not add to previous draw Result Comment: Benedicta roxaban and Apixaban will interfere with the anti Xa assay used to monitor UFH and LMWH. RESULTS CHECKED AND CALLED. ACCURATELY READ BACK BY LISA VALENTE RN @ 3004 Performed By: #### 3 1046, 60589, 38983, 17459 #### [facility] [address] [place] [address], [facility] UNFRACTIONATED HEPARIN 0.20 IU/mL Low 0.30-0.70 [facility] Comment on above: Result Comment: Benedicta roxaban and Apixaban will interfere with the anti Xa assay used to monitor UFH and LMWH. Performed By: #### 3 1046, 35089, 09472, 33853 #### [facility] [address] APTTon 05-31-2019 aPTT Coag (Bld) [Time] 65.5 s High 25.0-35.0 [facility] Comment on above: Result Comment: ALL RESULTS [...] THIS PURPOSE. Performed By: #### 5 3629, 70196, 67861, 52391 #### [facility] [address] [facility]. [address] BASIC METABOLIC PANELon 05-15 Calcium [Mass/Vol] 9.3 mg/dL Normal 8.6-10.3 [facility] Comment on above: Order Comment: No: D o not add to previous draw Performed By: #### 3 1046, 08640, 55795, 01065 #### [facility] [address] [facility] [place] [address], [facility] Chloride [Moles/Vol] 104 mmol/L Normal 98-107 [facility] Comment on above: Order Comment: No: D o not add to previous draw Performed By: #### 3 1046, 55079, 28719, 81910 #### [facility] [address] [facility] [place] [address], [facility] CO2 [Moles/Vol] 21 mmol/L Normal 21-31 [facility] Comment on above: Order Comment: No: D o not add to previous draw Performed By: #### 3 1046, 89220, 02377, 21526 #### [facility] [address] [facility] [place] [address], [facility] Creatinine [Mass/Vol] 1.29 mg/dL Normal 0.70-1.30 [facility] Comment on above: Order Comment: No: D o not add to previous draw Performed By: #### 3 1046, 88234, 43092, 90690 #### [facility] [address] [place] [address], [place] GFR/1.73 sq M predicted among blacks MDRD (S/P/Bld) [Vol rate/Area] mL/min/{1.73_m2} Normal >60 [facility] Comment on above: Order Comment: No: D o not add to previous draw Result Comment: Calc ulation may not be valid for patients over 70 years Performed By: #### 3 1046, 86978, 52256, 64181 #### [facility] [address] [place] [address], [place] GFR/1.73 sq M predicted among non-blacks MDRD (S/P/Bld) [Vol rate/Area] 55 ml/min/1.73sq m Abnormal >60 [facility] Comment on above: Order Comment: No: D o not add to previous draw Result Comment: Calc ulation may not be valid for patients over 70 years Performed By: #### 3 1046, 85437, 45412, 62681 #### [facility] [address] [place] [address], [place] Glucose [Mass/Vol] 173 mg/dL High 70-100 [facility] Comment on above: Order Comment: No: D o not add to previous draw Performed By: #### 3 1046, 81602, 48056, 27565 #### [facility] [address] [place] [address], [place] Potassium [Moles/Vol] 4.6 mmol/L Normal 3.5-5.1 [facility] Comment on above: Order Comment: No: D o not add to previous draw Performed By: #### 3 1046, 46200, 14581, 18578 #### [facility] [address] [place] [address], [place] Sodium [Moles/Vol] 136 mmol/L Normal 136-145 [facility] Comment on above: Order Comment: No: D o not add to previous draw Performed By: #### 3 1046, 22830, 76446, 05724 #### [facility] [address] [place] [address], [facility] Urea nitrogen [Mass/Vol] 24 mg/dL Normal 7-25 [facility] Comment on above: Order Comment: No: D o not add to previous draw Performed By: #### 3 1046, 66845, 20419, 62132 #### [facility] [address] [place] [address], [facility] BNP (B-TYPE NATRIURETIC PEPT KAMRAN)on 05-31-2019 Natriuretic peptide B (Bld) [Mass/Vol] 430 pg/mL High 0-100 [facility] Comment on above: Order Comment: Yes: Add to Previous draw if able Result Comment: Give n the appropriate clinical setting a BNP result of >100 pg/mL indicates congestive heart failure. Performed By: #### 3 1046, 31274, 77119, 85580 #### [facility] [address] [place] [address], [facility] CARDIAC MAGNESIUM BLOODon Magnesium [Mass/Vol] 2.2 mg/dL Normal 1.9-2.7 [facility] Comment on above: Performed By: #### 3 1046, 45892, 90334, 06543 #### [facility] [address] [facility] [place] [address], [facility] CBC COMPLETE BLOOD COUNTon 0 05-31-2019 Erythrocyte distribution width (RBC) [Ratio] 14.3 % Normal 11.5-15.0 [facility] Comment on above: Order Comment: No: D o not add to previous draw Performed By: #### 5 0608 #### [facility] [address] [place] [address], [facility] Hematocrit (Bld) [Volume fraction] 47.4 % Normal 39.0-50.0 [facility] Comment on above: Order Comment: No: D o not add to previous draw Performed By: #### 5 0608 #### [facility] [address] [place] [address], [facility] Hemoglobin (Bld) [Mass/Vol] 15.3 g/dL Normal 13.0-17.0 [facility] Comment on above: Order Comment: No: D o not add to previous draw Performed By: #### 5 0608 #### [facility] [address] [place] [address], [facility] MCH (RBC) [Entitic mass] 29.0 pg Normal 27.0-33.0 [facility] Comment on above: Order Comment: No: D o not add to previous draw Performed By: #### 5 0608 #### [facility] [address] [place] [address], [facility] MCHC (RBC) [Mass/Vol] 32.3 g/dL Normal 32.0-35.0 [facility] Comment on above: Order Comment: No: D o not add to previous draw Performed By: #### 5 0608 #### [facility] [address] [facility] [place] [address], [facility] MCV (RBC) [Entitic vol] 89.8 fL Normal 82.0-98.0 [facility] Comment on above: Order Comment: No: D o not add to previous draw Performed By: #### 5 0608 #### [facility] [address] [facility] [place] [address], [facility] Nucleated RBC/100 WBC (Bld) [Ratio] 0 % Normal 0-0 [facility] Comment on above: Order Comment: No: D o not add to previous draw Performed By: #### 5 0608 #### [facility] [address] [facility] [place] [address], [facility] PLAT CNT 150 10*3/uL Normal 150-400 [facility] Comment on above: Order Comment: No: D o not add to previous draw Performed By: #### 5 0608 #### [facility] [address] [place] [address], [facility] RBC (Bld) [#/Vol] 5.28 10*6/uL Normal 4.20-5.70 [facility] Comment on above: Order Comment: No: D o not add to previous draw Performed By: #### 5 0608 #### [facility] [address] [facility] [place] [address], [facility] WBC (Bld) [#/Vol] 10.80 10*3/uL High 4.00-10.60 [facility] Comment on above: Order Comment: No: D o not add to previous draw Performed By: #### 5 0608 #### [facility] [address] [facility] [address] D DIMER TESTon 05-31-2019 D-DIMER TEST 10.95 mcg/mL FEU High 0.01-0.49 [facility] Comment on above: [...] AND CONFIRMED Performed By: #### 5 3629, 14063, 51413, 41269 #### [facility] [address] LACTATE BLOODon 05-31-2019 Lactate [Moles/Vol] 1.6 mmol/L Normal 0.5-2.2 [facility] Comment on above: Order Comment: Yes: Add to Previous draw if able Performed By: #### 1 0054 #### [facility] [address] [place] [address], [facility] PHOSPHORUS BLOODon 9 Phosphate [Mass/Vol] 4.3 mg/dL Normal 2.5-5.0 [facility] Comment on above: Order Comment: No: D o not add to previous draw Performed By: #### 3 1046, 66811, 19257, 38235 #### [facility] [address] [facility]. [address] PROTHROMBIN TIMEon 9 INR Coag (PPP) [Relative time] 1.23 {INR} High 0.91-1.16 [facility] Comment on above: Order Comment: [...] CHEST 1995;108:231S-246S. Performed By: #### 5 3629, 18671, 04752, 62750 #### [facility] [address] [facility] [place] [address], [facility] PT Coag (PPP) [Time] 15.6 s High 12.3-14.8 [facility] Comment on above: Order Comment: No: D o not add to previous draw Result Comment: ALL RESULTS MUST BE INTERPRETED WITH RESPECT TO BLOOD DRAWING ARTIFACT OR DILUTION ERROR OF ANTICOAGULANT AT THE TIME OF SAMPLING. Performed By: #### 5 3629, 89459, 59971, 53402 #### [facility] [address] TROPONIN-Ion 05-31-2019 Troponin I.cardiac [Mass/Vol] 0.14 ng/mL Critically high 0.00-0.04 [facility] Comment on above: Result Comment: M-CR ITICAL RESULT(S) REVIEWED, CALLED TO AND READ BACK BY TAYE MEYERS RN @0000 ON 06-01-19 M-TROPONIN INITIAL CRITICAL HIGH; RESPUN AND RETESTED REFERENCE RANGES: 0.00 - 0.04 ng/ml NORMAL 0.05 - 0.50 ng/ml INDETERMINATE > 0.50 ng/ml CONSISTENT WITH AN M.I. Performed By: #### 3 1046, 73360, 29764, 22533 #### [facility] [address] [facility]. [address] UFH HEPARIN ASSAYon 05-31-20 19 UNFRACTIONATED HEPARIN 0.28 IU/mL Low 0.30-0.70 [facility] Comment on above: Result Comment: Rosanne roxaban and Apixaban will interfere with the anti Xa assay used to monitor UFH and LMWH. Performed By: #### 5 3629, 34701, 64650, 69770 #### [facility] [address] [facility]. [address] Vital Signs Date Time Vital Sign Value Performing Clinician Facility 07-18-2024 11:38-0500 Body height 182.9 cm Benedict Vallecillo MD Work Phone: [facility] 07-18-2024 11:38-0500 Body mass index (BMI) [Ratio] 30.92 kg/m2 Benedict Vallecillo MD Work Phone: [facility] 07-18-2024 11:38-0500 Body temperature 97.3 [degF] Benedict Vallecillo MD Work Phone: [facility] 07-18-2024 11:38-0500 Body weight 103.42 kg Benedict Vallecillo MD Work Phone: [facility] 07-18-2024 11:38-0500 Diastolic blood pressure 62 mm[Hg] Benedict Vallecillo MD Work Phone: [facility] 07-18-2024 11:38-0500 Heart rate 89 /min Benedict Vallecillo MD Work Phone: [facility] 07-18-2024 11:38-0500 Respiratory rate 20 /min Benedict Vallecillo MD Work Phone: [facility] 07-18-2024 11:38-0500 SaO2% (BldA) [Mass fraction] 96 % Benedict Vallecillo MD Work Phone: [facility] 07-18-2024 11:38-0500 Systolic blood pressure 126 mm[Hg] Benedict Vallecillo MD Work Phone: [facility] 12-03-2023 09:08-0400 Body height 182.9 cm Pm 1 [facility] 12-03-2023 09:08-0400 Body mass index (BMI) [Ratio] 31.06 kg/m2 Pm 1 [facility] 12-03-2023 09:08-0400 Body weight 103.87 kg [facility] [address] [place] [address] 10-21-2023 08:24-0500 Body height 182.9 cm Jr. Stepanic DO Work Phone: [facility] 10-21-2023 08:24-0500 Body mass index (BMI) [Ratio] 32.82 kg/m2 Jr. Stepanic DO Work Phone: [facility] 10-21-2023 08:24-0500 Body weight 109.77 kg Jr. Stepanic DO Work Phone: [facility] 10-16-2023 10:29-0500 Body height 182.9 cm Benedict Vallecillo MD Work Phone: [facility] 10-16-2023 10:29-0500 Body mass index (BMI) [Ratio] 33.36 kg/m2 Benedict Vallecillo MD Work Phone: [facility] 10-16-2023 10:29-0500 Body temperature 97.11 [degF] Benedict Vallecillo MD Work Phone: [facility] 10-16-2023 10:29-0500 Body weight 111.58 kg Benedict Vallecillo MD Work Phone: [facility] 10-16-2023 10:29-0500 Diastolic blood pressure 70 mm[Hg] Benedict Vallecillo MD Work Phone: [facility] 10-16-2023 10:29-0500 Heart rate 91 /min Benedict Vallecillo MD Work Phone: [facility] 10-16-2023 10:29-0500 SaO2% (BldA) [Mass fraction] 97 % Benedict Vallecillo MD Work Phone: [facility] 10-16-2023 10:29-0500 Systolic blood pressure 150 mm[Hg] Benedict Vallecillo MD Work Phone: [facility] Encounters Encounter Date Encounter Type Care Provider Facility Start: 07-18-2024 End: 07-18-2024 Bamboo flowsheet Benedict Vallecillo MD Work Phone: [facility] Start: 07-18-2024 End: 07-18-2024 Bamboo flowsheet Benedict Vallecillo MD Work Phone: [facility] Start: 07-18-2024 End: 07-18-2024 Patient encounter procedure Benedict Vallecillo MD Work Phone: [facility] Work Phone: Start: 07-18-2024 End: 07-18-2024 Postop follow up visit related to original px Benedict Vallecillo MD Work Phone: [facility] Comment on above: Medicare annual well ness visit, subsequent (Primary Dx); Type 2 diabetes mellitus with hyperglycemia, without long-term current use of insulin ([facility]) Start: 03-15-2024 End: 03-15-2024 ambulatory BERNICE LUNA Not Available Start: 02-10-2024 End: 02-10-2024 ambulatory [facility] Start: 02-09-2024 End: 02-09-2024 ambulatory BERNICE LUNA Not Available Start: 02-09-2024 End: 02-09-2024 ambulatory GISELLE REECE Not Available Start: 02-04-2024 End: 02-04-2024 ambulatory ESTEPHANIE PRESSLEY Not Available Start: 02-01-2024 End: 02-01-2024 ambulatory GISELLE REECE Not Available Start: 01-28-2024 End: 01-28-2024 ambulatory ESTEPHANIE PRESSLEY Not Available Start: 01-25-2024 End: 01-25-2024 ambulatory GISELLE REECE Not Available Start: 01-21-2024 End: 01-21-2024 ambulatory ESTEPHANIE PRESSLEY Not Available Start: 01-18-2024 End: 01-18-2024 ambulatory VIJAY Vaughn CHANNINGKEYSHA Not Available Start: 01-11-2024 End: 01-11-2024 ambulatory BERNICE LUNA Not Available Start: 12-29-2023 End: 12-29-2023 ambulatory [facility] Start: 12-22-2023 End: 12-24-2023 ambulatory [facility] Start: 12-11-2023 End: 12-11-2023 ambulatory BENEDICT AVEL Not Available Start: 12-09-2023 End: 12-09-2023 ambulatory GAL MICHELE Not Available Start: 12-03-2023 End: 12-04-2023 ambulatory [facility] Start: 12-03-2023 Encounter for other preprocedural examination [facility] Start: 12-03-2023 End: 12-03-2023 Patient encounter procedure [facility] Pre-Admission Testing 1 [facility] - Pre Admit Comment on above: Preop examination (P rimary Dx); Hypertension, unspecified type; Atrial fibrillation, unspecified type ([facility]); Type 2 diabetes mellitus without complication, unspecified whether termite treater insulin use ([facility]); Former smoker; Osteoarthritis of left knee, unspecified osteoarthritis type; Urinary frequency Start: 12-03-2023 End: 12-03-2023 Preprocedural examination done Pm 1 [facility] Start: 11-30-2023 End: 11-30-2023 ambulatory BERNICE LUNA Not Available Start: 10-21-2023 Chart abstracting Jr. Willie Woods DO Work Phone: [facility] Start: 10-21-2023 End: 10-21-2023 Office outpatient visit 25 minutes Jr. Willie Woods DO Work Phone: [facility] Comment on above: Acute pain of left k nee Start: 10-21-2023 End: 10-21-2023 ambulatory , WILLIE WOODS Not Available Start: 10-16-2023 Bamboo flowsheet Benedict Vallecillo MD Work Phone: [facility] Start: 10-16-2023 Bamboo flowsheet Benedict Vallecillo MD Work Phone: [facility] Start: 10-16-2023 Clinisync Result Encounter Benedict Vallecillo MD Work Phone: [facility] External Department Unsolicited Start: 10-16-2023 End: 10-16-2023 Office outpatient visit 25 minutes Benedict Vallecillo MD Work Phone: [facility] Comment on above: Preop examination (P rimary Dx); Primary osteoarthritis of left knee; Type 2 diabetes mellitus with hyperglycemia, without long-term current use of insulin (CMS/HCC); Benign essential hypertension (CMS/HCC); Coronary artery disease involving chitina coronary artery of chitina heart without angina pectoris (CMS/HCC) Start: 10-16-2023 End: 10-16-2023 Preprocedural examination done Benedict Vallecillo MD Work Phone: [facility] Work Phone: Start: 10-16-2023 End: 10-16-2023 ambulatory BENEDICT VALLECILLO Not Available Start: 10-07-2023 End: 10-07-2023 ambulatory ANH POPE Not Available Start: 08-05-2023 End: 08-05-2023 ambulatory KVNG JOHNSON [facility] Start: 08-05-2023 End: 08-05-2023 Encounter for other preprocedural examination [facility] Start: 08-05-2023 End: 08-05-2023 Encounter for preprocedural cardiovascular examination [facility] Start: 11-13-2022 End: 11-14-[address] BENEDICT VALLECILLO Facility:[facility] Start: 05-15-2022 End: 05-16-[address] BENEDICT VALLECILLO Facility:[facility] Start: 05-31-2019 End: 06-06-2019 Evaluation and management of inpatient PROVIDER UNKNOWN Facility:[facility] Procedures Date Procedure Procedure Detail Performing Clinician Start: 10-21-2023 Radiologic examinati on knee 1/2 views Jr. Willie Woods DO Work Phone: Start: 10-16-2023 MLR HEMOGLOBIN A1C Benedict Vallecillo MD Work Phone: Start: 11-13-[address] BENEDICT PEÑA Comment on above: Performed By: #### P [facility] #### [facility] [address] [place] [address] Dr. Demetris Allred Start: 06-02-2019 DILATION OF 1 COR AR T WITH DRUG-ELUT INTRA, PERC APPROACH WILLIE V MOUKARBEL Start: 06-02-2019 FLUOROSCOPY OF MULTI PLE CORONARY ARTERIES USING OTH CONTRAST WILLIE V MODEMONDRBEL Start: 06-01-2019 [object Object] PROVIDE R UNKNOWN Comment on above: Order Comment: No: D o not add to previous draw Performed By: #### 3 [id number] #### [facility] [address] Start: 06-01-2019 INTRODUCE OTH THROMB OLYTIC IN CENTRAL ART, PERC WILLIE V MOUKARBEL Start: 06-01-2019 MEASURE OF CARDIAC S AMPL \T\ PRESSURE, R HEART, PERC APPROACH WILLIE V MOUKARBEL Start: 06-01-2019 Antibody screen PROVIDE R UNKNOWN Comment on above: Performed By: #### 3 [id number], [id number], [id number] #### [facility] [address] [place] [address], [facility] Start: 06-01-2019 REMOVAL OF INFUSION DEVICE FROM UPPER VEIN, YOUTH DEVELOPMENT PROFESSIONAL APPROACH WILLIE DEL CID Plan of Treatment Date Care Activity Detail Author Start: 03-14-2025 End: 03-14-2025 Patient encounter procedure 03/14/2025 8:00 AM EDT Office Visit [facility] [address] [place] [address] Bernice Luna, PA [address] [place] [address] [facility] Start: 01-16-2025 End: 01-16-2025 Patient encounter procedure 01/16/2025 8:00 AM EDT Office Visit [facility] [address] [place] [phone] Benedict Vallecillo MD [address] [place] [phone] [facility] Start: 12-10-2024 Urine screening for protein Diabetes: Urine Protein Screening [facility] Start: 12-02-2024 Adult BMI Screening Adult BMI Screen ing [facility] Start: 12-02-2024 Tobacco Screening Tobacco Screening [facility] Start: 07-18-2024 End: 07-18-2025 Hemoglobin A1c/Hemoglobin.total in Blood Hemoglobin A1c Lab Routine Type 2 diabetes mellitus with hyperglycemia, without long-term current use of insulin ([facility]) Expected: 07/18/2024 (Approximate), Expires: 07/18/2025 [facility] Work Phone: Comment on above: Expected: 07/18/2024 (Approximate), Expires: 07/18/2025 Start: 07-18-2024 End: 07-18-2024 Patient encounter procedure 07/18/2024 11:30 AM EST Office Visit [facility] [address] [place] [phone] Benedict Vallecillo MD [address] [place] [phone] Arrived [facility] Comment on above: Arrived Start: 07-14-2024 Medicare Annual Well ness (AWV) Medicare Annual Wellness (AWV) [facility] Start: 06-12-2024 Hemoglobin A1c measurement Diabetes: Hemoglobin A1C [facility] Start: 05-15-2024 Influenza vaccination Influenza Vacc ine (#1) [facility] Start: 03-04-2024 Hemoglobin A1c measurement Diabetes: Hemoglobin A1C [facility] Start: 01-25-2024 Glaucoma screening Diabetes: R etinopathy Screening [facility] Start: 01-13-2024 End: 01-13-2024 Patient encounter procedure 01/13/2024 9:00 AM EDT Office Visit [facility] [address] [place] [phone] Benedict Vallecillo MD [address] [place] [address] [facility] Start: 12-29-2023 End: 12-29-2023 Admission to same day surgery center 12/29/2023 7:45 AM EDT - 12/29/2023 11:00 AM EDT Surgery [facility] - Surgery [address] [place] [phone] Willie Woods Jr., DO [address] [facility] [address] [place] [address] REPLACEMENT TOTAL JOINT KNEE [90878 (CPT )] [facility] Surgery Comment on above: REPLACEMENT TOTAL KAREY INT KNEE [88033 (CPT )] Start: 12-29-2023 End: 12-29-2023 Arthrp kne condyle&platu medial&lat compartments REPLACEMENT TOTAL JOINT KNEE left knee degenerative joint disease 12/29/2023 7:45 AM EDT [facility] Start: 12-29-2023 Subsequent hospital visit by physician 12/29/2023 7:45 AM EDT Hospital Encounter [facility] Surgery [address] [place] [phone] Willie Woods Jr., DO [address] [facility] [address] [place] [address] [facility] Start: 12-21-2023 End: 11-26-2024 Crossmatch RBC Crossmatch RBC Blood Bank Routine Preop examination Hypertension, unspecified type Atrial fibrillation, unspecified type (CMS-HCC) Type 2 diabetes mellitus without complication, unspecified whether retirement insulin use (CMS-HCC) Former smoker Osteoarthritis of left knee, unspecified osteoarthritis type Urinary frequency Expected: 12/21/2023, Expires: 11/26/2024 [facility] Comment on above: Expected: 12/21/2023 , Expires: 11/26/2024 Start: 12-21-2023 End: 11-26-2024 Type and screen(includes indirect olivia) Type and screen(includes indirect olivia) Blood Bank Routine Preop examination Hypertension, unspecified type Atrial fibrillation, unspecified type (CMS-HCC) Type 2 diabetes mellitus without complication, unspecified whether termite treater insulin use (CMS-HCC) Former smoker Osteoarthritis of left knee, unspecified osteoarthritis type Urinary frequency Expected: 12/21/2023, Expires: 11/26/2024 [facility] Comment on above: Expected: 12/21/2023 , Expires: 11/26/2024 Start: 12-03-2023 End: 11-26-2024 ECG 12 lead ECG 12 lead ECG Routine Preop examination Hypertension, unspecified type Atrial fibrillation, unspecified type (CMS-HCC) Type 2 diabetes mellitus without complication, unspecified whether retirement insulin use ([facility]) Former smoker Osteoarthritis of left knee, unspecified osteoarthritis type Urinary frequency Expected: 12/03/2023, Expires: 11/26/2024 [facility] Comment on above: Expected: 12/03/2023 , Expires: 11/26/2024 Start: 12-03-2023 End: 11-26-2024 XR Femur and Tibia Views for leg length [employer] Work Phone: Comment on above: Expected: 12/03/2023 , Expires: 11/26/2024 Start: 11-14-2023 Urine screening for protein Diabetes: Urine Protein Screening [facility] Start: 10-21-2023 End: 10-21-2023 Patient encounter procedure 10/21/2023 8:30 AM EST Office Visit [facility] [address] [place] [phone] Jr. Willie Woods, DO [address] [place] [address] [place] [address] [facility] Start: 10-16-2023 End: 10-16-2024 Hemoglobin A1c measurement Hemoglobin A1c Lab Routine Type 2 diabetes mellitus with hyperglycemia, without long-term current use of insulin ([facility]) Expected: 10/16/2023 (Approximate), Expires: 10/16/2024 [facility] Work Phone: Comment on above: Expected: 10/16/2023 (Approximate), Expires: 10/16/2024 Start: 10-16-2023 End: 10-16-2023 Patient encounter procedure 10/16/2023 10:30 AM EST Consult [facility] [address] [place] [place] [phone] Benedict Vallecillo MD [address] [place] [address] Arrived [facility] Comment on above: Arrived Start: 02-03-2020 Pneumococcal Vaccine : 65+ Years (2 - PCV) Pneumococcal Vaccine: 65+ Years (2 - PCV) [facility] Start: 02-03-2020 Pneumococcal Vaccine : 65+ Years (2 of 2 - PCV) Pneumococcal Vaccine: 65+ Years (2 of 2 - PCV) [facility] Start: 2011 Fall Risk Screening Fall Risk Screen ing [facility] Start: 1996 Administration of varicella zoster vaccine Zoster (Shingles) Vaccine (1 of 2) [facility] Start: 1965 DTaP,Tdap and Td Vaccines (1 - Tdap) DTaP,Tdap and Td Vaccines (1 - Tdap) [facility] Start: 1965 Urine screening for protein Diabetes: Urine Protein Screening [facility] Start: 1964 Adult BMI Follow Up Plan Adult BMI Follow Up Plan [facility] Start: 1958 Depression Screening Depression Scre ening [facility] Start: 1956 Glaucoma screening Diabetes: R etinopathy Screening [facility] Start: 1946 Hemoglobin A1c measurement Diabetes: Hemoglobin A1C [facility] Start: 1946 Medicare Annual Well ness (AWV) Medicare Annual Wellness (AWV) [facility] Start: 1946 Medicare Annual Well ness Visit Medicare Annual Wellness Visit [facility] Immunizations Immunization Date Immunization Notes Care Provider Fa cili 07-17-2023 influenza virus vacc ine, unspecified formulation Benedict Vallecillo MD Work Phone: [facility] 07-22-2022 Influenza, High-dose Seasonal, Quadrivalent, Preservative Free Benedict Vallecillo MD Work Phone: [facility] 07-22-2022 Moderna Bivalent [place] Vaccination Benedict Vallecillo MD Work Phone: [facility] 11-24-2020 COVID-19, mRNA, LNP- S, PF, 30mcg/0.3mL Dose Pmh 1 [facility] 11-03-2020 COVID-19, mRNA, LNP- S, PF, 30mcg/0.3mL Dose Pmh 1 [facility] 02-02-2019 pneumococcal polysaccharide vaccine, 23 valent Benedict Vallecillo MD Work Phone: [facility] Payers Date Payer Category Payer Unknown [id number] 2018 Private Health Insurance [id number] .[id number] [facility] er [id number] .[id number] 5 2013 Unknown [id number] 1.13.693 .[id number] 2011 Medicare [id number]. 1.13.693 .2.7.3.291022.315 1959 Medicare [id number] 1959 Unknown [id number] 1959 Unknown [id number] 1946 Unknown [id number] 2.16.840.1.802116.3.579 .2.647 1946 Unknown [id number] 2.16.840.1.363225.3.579 .2.593 1946 Unknown [id number] 2.16.840.1.207966.3.579 .2.593 1946 Unknown [id number] 2.16.840.1.115235.3.579 .2.1286 1946 Unknown [id number] 2.16.840.1.164350.3.579 .2.128 1946 Unknown [id number] 2.16.840.1.745982.3.579 .2.1286 1946 Unknown [id number] 2.16.840.1.265746.3.579 .2.128 1946 Unknown [id number] 2.16.840.1.827385.3.579 .2.1286 1946 Unknown [id number] 2.16.840.1.494139.3.579 .2.128 1946 Unknown [id number] 2.16.840.1.519244.3.579 .2.1286 1946 Unknown [id number] 2.16.840.1.258065.3.579 .2.1286 1946 Unknown [id number] 2.16.840.1.887680.3.579 .2.125 1946 Unknown [id number] 2.16.840.1.392378.3.579 .2.125 1946 Unknown [id number] 2.16.840.1.106138.3.579 .2.125 1946 Unknown [id number] 2.16.840.1.906598.3.579 .2.1258 1946 Unknown [id number] 2.16.840.1.812909.3.579 .2.1258 1946 Unknown [id number] 2.16.840.1.128228.3.579 .2.1258 1946 Unknown [id number] 2.16.840.1.196103.3.579 .2.1258 1946 Unknown [id number] 2.16.840.1.728107.3.579 .2.1258 1946 Unknown [id number] 2.16.840.1.387376.3.579 .2.1258 1946 Unknown [id number] 2.16.840.1.311270.3.579 .2.1258 1946 Unknown [id number] 2.16.840.1.087950.3.579 .2.125 1946 Unknown [id number] 2.16.840.1.738822.3.579 .2.1258 1946 Unknown [id number] 2.16.840.1.537054.3.579 .2.1258 1946 Unknown [id number] 2.16.840.1.626160.3.579 .2.1258 1946 Unknown [id number] 2.16.840.1.663054.3.579 .2.1259 1946 Unknown [id number] 2.16.840.1.198971.3.579 .2.1259 1946 Unknown [id number] 2.16.840.1.696601.3.579 .2.1259 1946 Unknown [id number] 2.16.840.1.764219.3.579 .2.1259 Social History Date Type Detail Facility Start: 04-22-2023 End: 10-16-2023 Tobacco smoking status WAIS Ex-smoker [facility] End: 09-14-1994 History of tobacco use Current smoker [facility] End: 09-14-1994 History of tobacco use Cigarette Smoker [facility] Start: 10-10-2023 End: 07-18-2024 Alcohol intake Current drinker of alcohol (finding) [facility] Start: 10-09-2023 End: 07-18-2024 History of Social function [facility] Start: 10-09-2023 End: 07-18-2024 Humiliation, Afraid, Rape, and Kick questionnaire [HARK] [facility] Within the last year , have you been afraid of your partner or ex-partner? No [facility] Do you belong to any clubs or organizations such as catholic groups, unions, fraternal or athletic groups, or [...] got money to buy more. Never true [facility] Start: 1945 Sex Assigned At Male [facility] Start: 03-02-2023 Gender identity Identifies as male gender (finding) [facility] Start: 03-02-2023 Sexual orientation Heterosexual (fin ding) [facility] Start: 10-16-2023 End: 12-03-2023 Tobacco use and exposure Smokeless tobacco non-user [facility] Clinical Notes 11-06-2020 to 07-18-2024 Benedict Vallecillo MD - 07/18/2024 12:04 PM Queenie Vallecillo MD - 07/18/2024 11:30 AM ESTPatient InstructionsJr. Willie Woods, - 10/21/2023 8:30 AM Queenie Vallecillo MD - 10/16/2023 12:23 PM EST Note Date & Type Note Facility 07-18-2024 History of Present illness Narrative Associated Problem(s): Medicare annual wellness visit, subsequent Due for labs. Discussed proper diet and regular aerobic exercise. Need aerobic exercise 5-6 days a week for 30 minutes at a time. Smaller portions and limit total calories. Tetanus every 10 years. Advised not to smoke. Images from the original note were not included. Subjective Patient ID: Serge Shine is a 79 y.o. male who presents for Medicare Annual Wellness Visit Subsequent (wellness). Presents for medicare annual wellness visit. Patient feels well today. Weight down 15 pounds in past year. Remains active and rides bike several days a week. Tries to watch diet and eat healthy. Increased fruits and vegetables. Smaller portions and limits snacking. Tries to limit total daily calories. Due for labs. Review of Systems Constitutional: Negative for fatigue. [...] There is no guarding or rebound. Musculoskeletal: General: Normal range of motion. Left lower leg: No edema. Neurological: General: No focal deficit present. Mental Status: He is alert. Cranial Nerves: No cranial nerve deficit. Deep Tendon Reflexes: Reflexes normal. Assessment/Plan Problem List Items Addressed This Visit Type 2 diabetes mellitus with hyperglycemia, without long-term current use of insulin ([facility]) Relevant Orders Hemoglobin A1c Medicare annual wellness visit, subsequent - Primary Due for labs. Discussed proper diet and regular aerobic exercise. Need aerobic exercise 5-6 days a week for 30 minutes at a time. Smaller portions and limit total calories. Tetanus every 10 years. Advised not to smoke. documented in this encounter [facility] 02-10-2024 Note [place] Cardiology - [facility] Subjective Serge Shine is a 78 [...] Problem List Diagnosis Coronary artery disease involving chitina coronary artery of chitina heart without angina pectoris Presence of drug coated stent in right coronary artery Mixed hyperlipidemia Chronic pulmonary embolism without acute cor pulmonale ([facility]CC) Heart block Osteoarthritis of knee Primary osteoarthritis Pre-operative cardiovascular examination Benign essential hypertension BPPV (benign paroxysmal positional vertigo) Gouty arthritis Left knee pain Nonalcoholic fatty liver Obesity (BMI 30-39.9) Preop examination Presence of artificial knee joint, right PVD (peripheral vascular disease) ([facility]) Type 2 diabetes mellitus with hyperglycemia, without long-term current use of insulin ([facility]) Family History Problem Relation Name Age of Onset No Known Problems Mother No Known Problems Father Social History Tobacco Use Smoking status: Former Packs/day: 1 Types: Cigarettes Quit date: 08/1995 Years since quittin.5 Smokeless tobacco: Never HPI Serge is seen in follow-up. He is a 78-year-old man, who was admitted in 2019 to [facility] after an episode of cardiopulmonary arrest. [...] was evaluated in the emergency room at [facility] because of vertigo. CT scan did not [...] mg tablet, lisinop (more content not included)... [facility] 12-07-2023 Note XR BONE LENGTH STUDY Bone [...] Bud Alvarez MD on 12/07/2023 8:33 AM [facility] 12-03-2023 Instructions Monae Cratwright RN - 12/03/2023 9:00 AM EDT Preoperative [...] in at the main lobby of the [facility]- registration desk is straight ahead as soon as you walk in. Tell them you are here for surgery. 2. If you have a Living Will/Durable Power of Commercial Real Estate Assistant for Health Care that is not on [...] after you have bathed. 5. NO nail cuban/acrylic on at least one finger. If you are having a hand, wrist or foot surgery then all nail cuban and artificial/acrylic nails must be removed from [...] please call the Preadmission Testing office at [phone], Mon.-Fri. 7 a.m.-3 p.m. Leave a voicemail [...] Stop taking 0 days prior to procedure xzahnjwu-elvi-EZ-calcium &mins (THERAGRAN-M) 9 mg iron-400 mcg tablet [...] with your doctor. documented in this encounter [facility] 10-21-2023 History of Present illness Narrative Images from the original note were not included. HISTORY OF PRESENT ILLNESS: EST PT Serge Shine is an 78 y.o. @ male. (EST PT; MOST RECENT VISIT WITH ANH) RECHECK LT KNEE PAIN-HERE TO DISCUSS POSSIBLE SURGERY- REPEAT XRAY TODAY LAST TX BY DR WOODS 07/22/23, LT TKA WAS DISCUSSED PT WAS CLEARED BY KVNG JOHNSON NP (ENGINEERING ASSOCIATE) 07/2023 PER PT CLEARED BY ALISE DENTIST [...] pending cardiac clearance and dental clearance from [facility]. Patient requests outpatient surgery at [facility] Questions answered in laymen terms at the bedside. The diagnosis, home exercise plan and any ongoing restrictions/ recommendations reviewed. If unable to be reached in office, I recommend evaluation at nearest Emergency Room if any symptoms worsened or new symptoms develop for requiring urgent evaluation. BIJU Pugh documented in this encounter [facility] 10-16-2023 History of Present illness Narrative Associated Problem(s): Benign essential hypertension (CMS/HCC) BP typically controlled and monitor PRN. Associated Problem(s): Coronary artery disease involving chitina coronary artery of chitina heart without angina pectoris (CMS/HCC) No pain [...] Addressed This Visit Coronary artery disease involving chitina coronary artery of chitina heart without angina pectoris (CMS/HCC) No pain [...] Recommend routine PAT. documented in this encounter [facility] 08-05-2023 Note Planning for Lt TKA [place] [facility] 08-05-2023 Note RCRI= 1???points Cla ss II Risk 6.0???% 30-day risk of , [place], or cardiac arrest From a cardiology perspective pt may proceed with planned Lt TKA, he is a low to moderate risk for moderate risk surgery, he may hold eliquis 2-3 days prior to surgery. Please resume all meds post op and monitor hemodynamics carefully and prevent any major fluid shifts. [facility] 08-05-2023 Note UTP CARDIOLOGY PROGR ESS NOTE [...] Continue lipitor Routine annual labs due around november Coronary artery disease involving chitina coronary artery of chitina heart without angina pectoris Coronary artery disease [...] Risk 6.0 % 30-day risk of , [place], or cardiac arrest From a cardiology perspective pt may proceed with planned Lt TKA, he is a low to moderate risk for moderate risk surgery, he may hold eliquis 2-3 days prior to surgery. Please resume all meds post op and monitor hemodynamics carefully and prevent any major fluid shifts. Osteoarthritis of knee Planning for Lt TKA RTC 6 months [facility] 08-05-2023 Note Patient here for 6 m o follow up CAD and hx of PE. Also needs cleared for knee replacement. Denies chest pain, SOB, palpitations, and lightheadedness. Doing very well. Review of Systems Cardiovascular: Positive for dyspnea on exertion and leg swelling. Musculoskeletal: Positive for arthritis and joint pain. All other systems reviewed and are negative. [facility] 08-05-2023 Note Continue GDMT [facility] 08-05-2023 Note H/O PE s/p thrombectomy/thrombolisis Cardiac arrest x2 in 2019 Lifelong anticoagulation- remains on eliquis [facility] 08-05-2023 Note Coronary artery dise ase is stable Continue GDMT- ASA, lipitor, lisinopril continue risk factor modifications- heart healthy diet, regular exercise as tolerated and continue all medications. He remains very active without any limiting symptoms [facility] 08-05-2023 Note Continue lipitor Routine annual labs due around november [facility] 11-06-2020 Note Patient Outreach ([place] [facility]) SERGE SHINE ([id number]) 1945 M Date Time Provider Department 11/06/20 GE GARCIA During your visit today, we recorded the following information about you: Allergies As of Date: 11/06/2020 (No Known Allergies) Date Reviewed: 06/16/2019 Reviewed by: Sudha Cartagena - Fully Assessed Order(s):SARS-COVID VACCINE 1ST DOSE APPT [[id number]] Order #: [id number] FUTURE Prescriptions as of 11/06/2020 Sig: ASPIRIN [...] 11/06/2020 (None) Letter Text Encounter Status:Closed by [place], PRODUSER on 11/09/20 [facility] Evaluation note Diagnosis Preop examination- Primary Unspecified pre-operative examination Primary osteoarthritis of left knee Type 2 diabetes mellitus with hyperglycemia, without long-term current use of insulin ([facility]) Benign essential hypertension ([facility]/HCC) Essential hypertension, benign Coronary artery disease involving chitina coronary artery of chitina heart without angina pectoris (CMS/HCC) [facility] Acute pain of left knee [facility] Diagnosis Preop examination- Primary Unspecified pre-operative examination Hypertension, unspecified type Atrial fibrillation, unspecified type (CMS-HCC) Type 2 diabetes mellitus without complication, unspecified whether retirement insulin use ([facility]) Former smoker Personal history of tobacco use, presenting hazards to health Osteoarthritis of left knee, unspecified osteoarthritis type Urinary frequency Preop examination Unspecified pre-operative examination Hypertension, unspecified type Atrial fibrillation, unspecified type ([facility]) Type 2 diabetes mellitus without complication, unspecified whether retirement insulin use ([facility]) Former smoker Personal history of tobacco use, presenting hazards to health Osteoarthritis of left knee, unspecified osteoarthritis type Urinary frequency [facility] Preop examination- Primary Unspecified pre-operative examination Primary osteoarthritis of left knee Type 2 diabetes mellitus with hyperglycemia, without long-term current use of insulin ([facility]) Benign essential hypertension ([facility]) Essential hypertension, benign Coronary artery disease involving chitina coronary artery of chitina heart without angina pectoris ([facility]) Primary osteoarthritis of left knee- Primary Preop examination Unspecified pre-operative examination Type 2 diabetes mellitus with hyperglycemia, without long-term current use of insulin ([facility]/HCC) Benign essential hypertension (CMS/HCC) Essential hypertension, benign Gouty arthritis Gouty arthropathy, unspecified PVD (peripheral vascular disease) ([facility]) Unspecified peripheral vascular disease Mixed hyperlipidemia ([facility]) Mixed hyperlipidemia Encounter for long-term (current) use of medications Encounter for long-term (current) use of other medications Obesity (BMI 30-39.9) Screening PSA (prostate specific antigen) Special screening for malignant neoplasm of prostate Coronary artery disease involving chitina coronary artery of chitina heart without angina pectoris ([facility]) Type 2 diabetes mellitus with diabetic peripheral angiopathy without gangrene, without long-term current use of insulin ([facility]/HCC) Type 2 diabetes mellitus with other specified complication, without long-term current use of insulin ([facility]) Medicare annual wellness visit, subsequent- Primary Type 2 diabetes mellitus with hyperglycemia, without long-term current use of insulin ([facility]) documented in this encounter [facility] Summary Purpose Family History No Family History Records FoundNo Family History Records FoundNo Family History Records FoundNo Family History Records FoundNo Family History Records FoundNo Family History Records Found Advance Directives No Advanced Directives Records FoundNo Advanced Directives Records FoundNo Advanced Directives Records FoundNo Advanced Directives Records FoundNo Advanced Directives Records FoundNo Advanced Directives Records Found Hospital Course Note MR#: [id number] [facility] Pt. Name: Serge Shine Admitted: 05/31/2019 Discharged: [...] a 74-year-old male, who was transferred from [facility] on May 31, 2019 for pulmonary embolism. 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 ([facility]) Former smoker Osteoarthritis of left knee, unspecified osteoarthritis type Urinary frequency Procedures ECG 12 lead Willie Woods Jr., DO [address] [facility] [address] [place] [address] Referral ID Status Reason Start Date Expiration Date V isits Requested Visits Authorized [id number] Pending Review 11/27/2023 11/26/2024 1 1 Additional Source Comments (unrecognized sect ion and content) No Status Records FoundNo Status Records FoundNo Status Records FoundNo Status Records FoundNo Status Records FoundNo Status Records Found INFORMATION SOURCE (unrecogn ized section and content) DATE CREATED AUTHOR 07/14/2019 [facility] DATE CREATED AUTHOR AUTHOR'S ORGANIZ ATION 10/24/2021 [facility] DATE CREATED AUTHOR AUTHOR'S ORGANIZ ATION 11/19/2022 [facility] DATE CREATED AUTHOR AUTHOR'S ORGANIZ ATION 01/06/2024 [facility] DATE CREATED AUTHOR AUTHOR'S ORGANIZ ATION 02/11/2024 [facility] DATE CREATED AUTHOR AUTHOR'S ORGANIZ ATION 03/16/2024 [facility] EPIC Care Teams (unrecognized sec tion and content) 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 Relationship Specialty Start Date End Date Benedict Vallecillo MD [address] [place] [phone] PCP - General Family Medicine 10/05/23 Art Conservator Relationship Specialty Start Date End Date Benedict Vallecillo MD [address] [place] [phone] PCP - General Family Medicine 10/05/23 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 Conservator Relationship Specialty Start Date End Date Benedict Vallecillo MD [address] [place] [phone] PCP - General Family Medicine 10/05/23 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 Conservator Relationship Specialty Start Date End Date Benedict Vallecillo MD [address] [place] [phone] PCP - General Family Medicine 10/05/23 Art Conservator Relationship Specialty Start Date End Date Benedict Vallecillo MD [address] [place] [phone] PCP - General Family Medicine 10/05/23 Art Conservator Relationship Specialty Start Date End Date Benedict Vallecillo MD [address] [place] [phone] PCP - General Family Medicine 10/05/23 Reason for Visit (unrecogniz ed section and content) Reason Comments Follow-up Surgical clearance Reason Comments Pain Reason Comments Medicare Annual Wellness Visit Subsequen t wellness FOR RECORDS PERTAINING TO PATIENTS WHO ARE [...] BE BASED ON THE PRIMARY CLINICAL RECORDS. [facility] provides no warranty or guarantee of the accuracy or completeness of information in this document.
[2024-07-20 02:14] LABS: Estimated Average Glucose 134 mg/dL; Glycohemoglobin A1C 6.3 % (4.5-6.2)
== END 2024-07-19 07:33 | disposition home or self-care (01) ==
LOC: LAB 07:34
PROVIDERS: PCP Family Medicine; Visit Provider Family Medicine
DX: E11.65 Type 2 diabetes mellitus with hyperglycemia (principal)
CPT/HCPCS: 36415; 83036

== ENCOUNTER 2025-01-02 07:24 | Outpatient (OUT) | payer MEDICARE, BC, SELFPAY ==
--- OUTSIDE RECORDS SUMMARY | 2025-01-02 07:31 | XMS_ITS | CCD ---
Author Organization [facility] Care Team Providers Care Grades 7 8 Tutor Name Role Phone UNKNOWN, PROVIDER Admitting Unavailable LUX ORTIZ Referring Unavailable KATTYEREBENEDICT Melton Primary Care Unavailable JACQUELYN STEIN Attending Unavailable [place] Procedure Practitioner Unavailab le UNKNOWN, PROVIDER Surgeon Unavailable AVEL, DR BENEDICT Brush Consulting Unavailable NADERER, DR BENEDICT Brush Attending Unavailable NADERER, DR BENEDICT Brush Admitting Unavailable NADERER, DR BENEDICT Brush Primary Care Unavailable NADERER, DR BENEDICT Brush Primary Care Unavailable NADEREGeronimo, DR BENEDICT Brush Consulting Unavailable NADEREGeronimo, DR BENEDICT Brush Attending Unavailable NADERER, DR BENEDICT Brush Admitting Unavailable Benedict Vallecillo MD Primary Care Provider WILLIE WOODS JR Referring Unavailabl e STEPWILLIE REED JR Referring Unavailabl WILLIE Brown JR Attending Unavailabl WILLIE Brown JR Referring Unavailabl e WILLIE WOODS JR Attending Unavailabl e WILLIE WOODS JR Referring Unavailabl e WILLIE WOODS JR Referring Unavailabl e NADEREBENEDICT Melton Primary Care Unavailable WILLIE WOODS JR Referring Unavailabl e KATTYERERBENEDICT Primary Care Unavailable WILLIE WOODS JR Admitting Unavailabl WILLIE Brown JR Attending Unavailabl e ANH POPE Attending Unavailable BENEDICT [...] Referring Unavaila GISELLE Taylor Attending Unavailable JR. WOODS GEORGE C Referring Unavaila ble TATTERSALL, ESTEPHANIE Attending Unavailable JR. INDY, WILLIE Manzano Referring Unavaila GISELLE Taylor Attending Unavailable JR. INDY, WILLIE Manzano Referring Unavaila ESTEPHANIE Chambers Attending Unavailable JR. INDY, WILLIE Manzano Referring Unavaila GISELLE Taylor Attending Unavailable JR. INDY, WILLIE Manzano Referring Unavaila BERNICE Acosta Attending Unavailable BERNICE LUNA Referring Unavailable BERNICE LUNA Attending Unavailable BENEDICT VALLECILLO Attending Unavailable KIA JOSHI Attending Unavailable Unavailable Primary Care Provider WILLIE Forbes Attending WILLIE Valdovinos Attending Unavailable Allergies Allergy Classification Reported Allergen(s) Allergy Type Date of Onset Reaction(s) Facility (1 source) 96715,00 Drug allergy (disorder) 05-31-2019 [facility] Repository Medications Current Medications Medication Drug Class(es) Dates Sig (Normalized) Sig (Original) apixaban 5 mg oral tablet (14 sources) Factor Xa Inhibitor Start: 07-28-2024 take 1 tablet by mouth twice daily apixaban (Eliquis) 5 MG tablet Indications: Chronic pulmonary embolism without acute cor pulmonale, unspecified pulmonary embolism type (CMS/HCC) TAKE 1 TABLET BY MOUTH TWICE DAILY 180 tablet 3 07/28/2024 Active Start: 09-18-2023 take 1 tablet by tamara th twice daily Eliquis 5 MG tablet Indications: [...] / zinc oxide 17.4 mg oral capsule (13 sources) Vitamin C take 1 tablet by mouth twice daily Multiple Vitamins-Minerals (PreserVision AREDS 2) capsule 1 tablet Orally two times daily Active aspirin 81 mg delayed release oral tablet (10 sources) Platelet Aggregation Inhibitor, Nonsteroidal Anti-inflammatory Drug End: 024 take 1 tablet by mouth in the morning aspirin 81 MG EC tablet Take 1 tablet by mouth in the morning. 07/18/2024 Discontinued atorvastatin 40 mg oral tablet (14 sources) HMG-CoA Reductase Inhibitor Start: take 1 tablet by mouth at bedtime atorvastatin (Lipitor) 40 MG tablet Indications: Coronary artery disease involving hopland coronary artery of hopland heart without angina pectoris (CMS/HCC) TAKE 1 TABLET BY MOUTH AT BEDTIME 90 tablet 3 07/28/2024 Active Start: 09-18-2023 take 1 tablet by tamara th at bedtime atorvastatin (Lipitor) 40 MG tablet Indications: Coronary artery disease involving hopland coronary artery of hop[place] heart without angina pectoris (CMS/HCC) TAKE 1 TABLET BY MOUTH AT BEDTIME 90 tablet 3 09/18/2023 Active empagliflozin 25 mg oral tablet (14 sources) Sodium-Glucose Cotransporter 2 Inhibitor Start: 07-28-2024 take 1 tablet by mouth once daily Jardiance 25 MG Indications: Type 2 diabetes mellitus with hyperglycemia, without long-term current use of insulin (CMS/HCC) TAKE 1 TABLET BY MOUTH DAILY 90 tablet 3 07/28/2024 Active Start: 09-18-2023 take 1 tablet by tamara th once daily Jardiance 25 MG Indications: Type [...] 12/30/2023 Active glipiZIDE 10 mg oral tablet (14 sources) Sulfonylurea Start: 12-09-2023 take 1 tablet [...] 0 Active lisinopril 20 mg oral tablet (14 sources) Angiotensin Converting Enzyme Inhibitor Start: 07-28-2024 take 1 tablet by mouth once daily lisinopril 20 MG tablet Indications: Primary hypertension (CMS/HCC) TAKE 1 TABLET BY MOUTH DAILY 90 tablet 3 07/28/2024 Active Start: 09-18-2023 take 1 tablet by tamara th once daily lisinopril 20 MG tablet Indications: Primary hypertension (CMS/HCC) TAKE 1 TABLET BY MOUTH DAILY 90 tablet 3 09/18/2023 Active Multiple Vitamins-Minerals ( Centrum Silver 50+Men) tablet (13 sources) Multiple Vitamin s-Minerals (Centrum Silver 50+Men) tablet as directed Orally Active Multiple Vitamin s-Minerals (Centrum Silver 50+Men) tablet as directed Orally 0 Active yvsaoetk-kstb-OM-calcium &mins (THERAGRAN-M) 9 mg iron-400 mcg tablet (1 source) reiphhsn-bbzt-ZV -calcium &mins (THERAGRAN-M) 9 mg iron-400 mcg tablet Take 1 tablet by mouth in the morning. 0 Active terbinafine 250 mg oral tablet (2 sources) Allylamine Antifungal Star t: 7- 25 End: 04-02 25 take 1 tablet by mouth once daily terbinafine (LamISIL) 250 MG tablet Indications: Onychomycosis Take 1 tablet (250 mg) by mouth Daily 90 tablet 09/20/2024 12/19/2024 Active vit C/E/zinc ox/ginny/lut/zeax (ICAPS AREDS2 ORAL) (1 source) take 1 tablet by mouth in the morning vit C/E/zinc ox/ginny/lut/zeax (ICAPS AREDS2 ORAL) Take 1 tablet by mouth in the morning. 0 Active Problems Active Problems Problem Classification Problem Date Documented Da te Episodic/Chronic Cardiac dysrhythmias (2 sources) Unspecified atrial fibrillation; Translations: [Atrial fibrillation] Onset: 12-03-2023 11-27-2023 Chronic Conduction disorders (13 sources) Heart block ; Translations: [Conduction disorder, unspecified] Onset: 06-21-2019 04-22-2023 Chronic Coronary atherosclerosis and other heart disease (20 sources) Coronary arteriosclerosis; Translations: [Atherosclerotic heart disease of hop[place] coronary artery without angina pectoris] Onset: 06-21-2019 Resolved: 02-02-2024 08-09-2023 Chronic Coronary atherosclerosis and other heart disease (15 sources) Presence of coronary angioplasty implant and graft; Translations: [Percutaneous transluminal coronary angioplasty status] Onset: 02-04-2023 04-22-2023 Episodic Diabetes mellitus with complications (20 sources) Type 2 diabetes mellitus with hyperglycemia; Translations: [Type 2 diabetes mellitus] Onset: 05-15-2022 Chronic Diabetes mellitus without complication (2 sources) Type 2 diabetes mellitus without complications; Translations: [Type 2 diabetes mellitus without complication] Onset: 12-03-2023 11-27-2023 Chronic Disorders of lipid metabolism (14 sources) Hyperlipidemia, unspecified; Translations: [Mixed hyperlipidemia] Onset: 11-17-2022 04-22-2023 Chronic Essential hypertension (20 sources) Essential (primary) hypertension; Translations: [Benign essential hypertension] Onset: 11-13-2022 Chronic Genitourinary symptoms and ill-defined conditions (2 sources) Frequency of micturition; Translations: [Increased frequency of urination] Onset: 12-03-2023 11-27-2023 Episodic Gout and other crystal arthropathies (12 sources) Gouty arthropathy; Translations: [Gout, unspecified] Onset: 10-16-2023 10-16-2023 Chronic Mycoses (2 sources) Onychomycosis; Translations: [Tinea unguium] 09-20-2024 Episodic Osteoarthritis (20 sources) Osteoarthritis of knee; Translations: [Osteoarthritis of knee, unspecified] Onset: 04-22-2023 04-22-2023 Chronic Other aftercare (1 source) Other supervisor intermediates (current) drug therapy; Translations: [OTH LONGTERM CURRENT DRUG THERAPY] Onset: 11-17-2022 Episodic Other connective tissue disease (7 sources) Artificial knee joint present; Translations: [Presence of right artificial knee joint] Onset: 01-18-2024 01-18-2024 Chronic Other connective tissue disease (2 sources) Pain of toes of bilateral feet; Translations: [Pain in right toe(s)] 09-20-2024 Episodic Other diseases of veins and lymphatics (2 sources) Venous insufficiency of leg; Translations: [Venous insufficiency (chronic) (peripheral)] 09-20-2024 Episodic Other liver diseases (12 sources) Non-alcoholic fatty liver; Translations: [Fatty (change of) liver, not elsewhere classified] Onset: 10-16-2023 10-16-2023 Chronic Other non-traumatic joint disorders (3 sources) Pain in left knee; Translations: [Pain in joint, lower leg] Onset: 12-29-2023 10-21-2023 Episodic Other nutritional; endocrine; and metabolic disorders (7 sources) Body mass index 30+ - obesity; Translations: [Obesity, unspecified] Onset: 12-11-2023 12-11-2023 Chronic Other skin disorders (2 sources) Dystrophia unguium; Translations: [Nail dystrophy] 09-20-2024 Episodic Peripheral and visceral atherosclerosis (12 sources) Peripheral vascular disease; Translations: [Peripheral vascular disease, unspecified] Onset: 10-16-2023 10-16-2023 Chronic Pulmonary heart disease (13 sources) Chronic pulmonary embolism; Translations: [Chronic pulmonary embolism] Onset: 02-04-2023 04-22-2023 Chronic Pulmonary heart disease (15 sources) H/O: pulmonary embolus; Translations: [Personal history of pulmonary embolism] Onset: 12-21-2020 04-22-2023 Episodic Screening and history of mental health and substance abuse codes (2 sources) Personal history of nicotine dependence; Translations: [Ex-smoker] Onset: 12-03-2023 11-27-2023 Episodic Unclassified (1 source) left knee degenerative joint disease Onset: 12-29-2023 Past or Other Problems Problem Classification Problem Date Documented Da te Episodic/Chronic Conditions associated with dizziness or vertigo (12 sources) Benign paroxysmal positional vertigo; Translations: [Benign paroxysmal vertigo, unspecified ear] Onset: 10-16-2023 10-16-2023 Episodic Mood disorders (6 sources) Mood disorders Onset: 07-18-2024 07-18-2024 Other aftercare (7 sources) Long-term current use of drug therapy; Translations: [Other usp (current) drug therapy] Onset: 12-11-2023 12-11-2023 Episodic Other screening for suspected conditions (not mental disorders or infectious disease) (8 sources) Encounter for screening for malignant neoplasm of prostate; Translations: [Patient encounter status] Onset: 11-17-2022 12-11-2023 Episodic Results Test Name Value Interpretation Reference Range Facility Office Visiton 12-30-2024 Follow-up visit [id number] Serge Shine 1945 M Date Provider Department Center 12/30/2024 WILLIE JEROME JASON [facility] Family History Problem Relation Age of Onset No Known Problems Mother Cancer Father Cancer Brother Family Status - Relation Status Age at Mother Father Sister Alive Brother Level of Service:86909 [place] OFFICE/OUTPATIENT ESTABLISHED MOD MDM 30 MIN Normal [facility] MLR HEMOGLOBIN A1Con 024 Glucose [Mass/Vol] 134 mg/dL [facility] HbA1c (Bld) [Mass fraction] 6.3 % High 4.5 - 6.2 % [facility] Comment on above: ADA RECOMMENDED LIMI T 4.0 - 6.0 ADA THERAPEUTIC TARGET < 7.0 ACTION SUGGESTED > 7.0 Interpretation and review of laboratory results Abnormal [facility] Office Visiton 02-10-2024 Follow-up visit [id number] Serge Shine 1945 M Date Provider Department Center 02/10/2024 WILLIE JEROME JASON [place] Family History Problem Relation Age of Onset No Known Problems Mother No Known Problems Father Family Status - Relation Status Age at Mother Father Level of Service:44575 [place] OFFICE/OUTPATIENT ESTABLISHED LOW MDM 20 MIN Normal [facility] Glucose Glucometer (BldC) [M ass/Vol]on 12-29-2023 Glucose [Mass/Vol] 152 mg/dL High 65-99 [facility] XR KNEE LT 1 OR 2 VWSon 12-13 XR KNEE LT 1 OR 2 VWS XR KNEE LT 1 OR 2 VWS XR KNEE LT 1 OR 2 VWS HISTORY: Knee replacement. COMPARISON: None. IMPRESSION: 1. Knee prosthesis, joint effusion, swelling, no complication Finalized by Mark Toribio MD on 12/29/2023 11:36 AM Normal [facility] Bacteria identified Cx Nom ( U)on 12-04-2023 Service comment (Unsp spec) [Interp] NO GROWTH AT <1000 CFU/mL [facility] CBC AND AUTO DIFFon 12-03-19 ABSOLUTE BASOPHIL 0.0 X10E9/L Normal 0.0-0.2 [facility] Comment on above: Performed By: #### C BCA, CMP #### [facility] ([id number]) [address], [address] [place] [address] ABSOLUTE NEUTROPHIL 4.7 X10E9/L Normal 1.5-6.6 [facility] Comment on above: Performed By: #### C BCA, CMP #### [facility] ([id number]) [address], [address] [place] [address] Basophils/100 WBC (Bld) 0.5 % Normal [facility] Comment on above: Performed By: #### C BCA, CMP #### [facility] ([id number]) [address], [address] [place] [address] Eosinophils (Bld) [#/Vol] 0.1 10*3/uL Normal 0.0-0.4 [facility] Comment on above: Performed By: #### C BCA, CMP #### [facility] ([id number]) [address], [address] [place] [address] Eosinophils/100 WBC (Bld) 1.8 % Normal [facility] Comment on above: Performed By: #### C BCA, CMP #### [facility] ([id number]) [address], [address] [place] [address] Erythrocyte distribution width (RBC) [Ratio] 14.3 % Normal 11.5-15.0 [facility] Comment on above: Performed By: #### C BCA, CMP #### [facility] ([id number]) [address], [address] [place] [address] Hematocrit (Bld) [Volume fraction] 47.0 % Normal 39-49 [facility] Comment on above: Performed By: #### C BCA, CMP #### [facility] ([id number]) [address], [address] [place] [address] Hemoglobin (Bld) [Mass/Vol] 15.9 g/dL Normal 13.0-17.0 [facility] Comment on above: Performed By: #### C JUANPABLO, CMP #### [facility] ([id number]) [address], [address] [place] [address] Lymphocytes (Bld) [#/Vol] 1.4 10*3/uL Normal 1.0-3.5 [facility] Comment on above: Performed By: #### C JUANPABLO, CMP #### [facility] ([id number]) [address], [facility] [[email or web address]] [address] [place] [address] Lymphocytes/100 WBC (Bld) 20.5 % Normal [facility] Comment on above: Performed By: #### C JUANPABLO, CMP #### [facility] ([id number]) [address], [address] [place] [address] MCH (RBC) [Entitic mass] 31.1 pg Normal 27-34 [facility] Comment on above: Performed By: #### C JUANPABLO, CMP #### [facility] ([id number]) [address], [address] [place] [address] MCHC (RBC) [Mass/Vol] 33.9 g/dL Normal 32-36 [facility] Comment on above: Performed By: #### C JUANPABLO, CMP #### [facility] ([id number]) [address], [address] [place] [address] MCV (RBC) [Entitic vol] 92 fL Normal 80-100 [facility] Comment on above: Performed By: #### C BCA, CMP #### [facility] ([id number]) [address], [address] [place] [address] Monocytes (Bld) [#/Vol] 0.7 10*3/uL Normal 0-0.9 [facility] Comment on above: Performed By: #### C BCA, CMP #### [facility] ([id number]) [address], [address] [place] [address] Monocytes/100 WBC (Bld) 9.7 % Normal [facility] Comment on above: Performed By: #### Jose Juan GERONIMO, CMP #### [facility] ([id number]) [address], [address] [place] [address] Neutrophils/100 WBC (Bld) 67.5 % Normal [facility] Comment on above: Performed By: #### Jose Juan GERONIMO, CMP #### [facility] ([id number]) [address], [address] [place] [address] Platelet mean volume (Bld) [Entitic vol] 8.4 fL Normal 7-12 [facility] Comment on above: Performed By: #### Jose Juan GERONIMO, CMP #### [facility] ([id number]) [address] [address] [place] [address] Platelets (Bld) [#/Vol] 155 10*3/uL Normal 150-450 [facility] Comment on above: Performed By: #### Jose Juan GERONIMO, CMP #### [facility] ([id number]) [address], [address] [place] [address] RBC COUNT 5.12 X10E12/L Normal 4.10-5.70 [facility] Comment on above: Performed By: #### Jose Juan GERONIMO, CMP #### [facility] ([id number]) [address] [address] [place] [address] WBC (Bld) [#/Vol] 7.0 10*3/uL Normal 4.0-11.0 [facility] Comment on above: Performed By: #### Jose Juan GERONIMO, CMP #### [facility] ([id number]) [address] [address] [place] [address] CBC auto differentialon -2 Basophils (Bld) [#/Vol] 0.0 10*3/uL [facility] RBC (Bld) [#/Vol] 5.12 10*6/uL [facility] WBC corrected for nucl RBC Auto (Bld) [#/Vol] 7.0 [facility] COMPREHENSIVE METABOLIC PANE Yung 12-03-2023 Albumin [Mass/Vol] 4.2 g/dL Normal 3.2-5.3 [facility] Comment on above: Performed By: #### C BCA, CMP #### [facility] ([id number]) [address], [address] [place] [address] ALP [Catalytic activity/Vol] 103 U/L Normal 39-130 [facility] Comment on above: Performed By: #### C BCA, CMP #### [facility] ([id number]) [address], [address] [place] [address] ALT [Catalytic activity/Vol] 30 U/L Normal 0-40 [facility] Comment on above: Performed By: #### C BCA, CMP #### [facility] ([id number]) [address], [address] [place] [address] Anion gap [Moles/Vol] 12 mmol/L Normal 5-15 [facility] Comment on above: Performed By: #### C BCA, CMP #### [facility] ([id number]) [address], [address] [place] [address] AST [Catalytic activity/Vol] 28 U/L Normal 0-41 [facility] Comment on above: Performed By: #### C BCA, CMP #### [facility] ([id number]) [address] [place] [address] Bilirubin [Mass/Vol] 0.7 mg/dL Normal 0.3-1.2 [facility] Comment on above: Performed By: #### C BCA, CMP #### [facility] ([id number]) [address], [address] [place] [address] Calcium [Mass/Vol] 9.9 mg/dL Normal 8.5-10.5 [facility] Comment on above: Performed By: #### C BCA, CMP #### [facility] ([id number]) [address], [address] [place] [address] Chloride [Moles/Vol] 106 mmol/L Normal 98-109 [facility] Comment on above: Performed By: #### C BCA, CMP #### [facility] ([id number]) [address], [address] [place] [address] CO2 [Moles/Vol] 27 mmol/L Normal 22-32 [facility] Comment on above: Performed By: #### C BCA, CMP #### [facility] ([id number]) [address], [address] [place] [address] Creatinine [Mass/Vol] 1.15 mg/dL Normal 0.60-1.30 [facility] Comment on above: Result Comment: METH OD TRACEABLE TO IDMS STANDARD Performed By: #### C BCA, CMP #### [facility] ([id number]) [address] [place] [address] GFR/1.73 sq M.predicted among non-blacks MDRD (S/P/Bld) [Vol rate/Area] 66 mL/min/{1.73_m2} Normal >59 [facility] Comment on above: Result Comment: Reported eGFR is based on the CKD-EPI 2020 equation that does not use a race coefficient. Performed By: #### C BCA, CMP #### [facility] ([id number]) [address], [address] [place] [address] Glucose [Mass/Vol] 94 mg/dL Normal 65-99 [facility] Comment on above: Performed By: #### C BCA, CMP #### [facility] ([id number]) [address], [address] [place] [address] Potassium [Moles/Vol] 4.3 mmol/L Normal 3.5-5.0 [facility] Comment on above: Performed By: #### C BCA, CMP #### [facility] ([id number]) [address], [address] [place] [address] Protein [Mass/Vol] 7.0 g/dL Normal 6.0-8.0 [facility] Comment on above: Performed By: #### C BCA, CMP #### [facility] ([id number]) [address], [address] [place] [address] Sodium [Moles/Vol] 145 mmol/L Normal 134-146 [facility] Comment on above: Performed By: #### C BCA, CMP #### [facility] ([id number]) [address], [address] [place] [address] Urea nitrogen [Mass/Vol] 26 mg/dL Normal 5-27 [facility] Comment on above: Performed By: #### C BCA, CMP #### [facility] ([id number]) [address], [address] [place] [address] Comprehensive metabolic pane yung 12-03-2023 Albumin [Mass/Vol] 4.2 g/dL 3.2 - 5.3 g/dL [facility] ALP [Catalytic activity/Vol] 103 U/L 39 - 130 U/L [facility] ALT No additional P-5'-P [Catalytic activity/Vol] 30 U/L 0 - 40 U/L [facility] Anion gap [Moles/Vol] 12 mmol/L 5 - 15 mmol/L [facility] AST [Catalytic activity/Vol] 28 U/L 0 - 41 U/L [facility] Bilirubin [Mass/Vol] 0.7 mg/dL 0.3 - 1 .2 mg/dL [facility] Calcium [Mass/Vol] 9.9 mg/dL 8.5 - 10. 5 mg/dL [facility] Chloride [Moles/Vol] 106 mmol/L 98 - 10 9 mmol/L [facility] CO2 [Moles/Vol] 27 mmol/L 22 - 32 mmol/L [facility] Creatinine [Mass/Vol] 1.15 mg/dL 0.60 - 1.30 mg/dL [facility] Comment on above: METHOD TRACEABLE TO IDLA STANDARD eGFR (CKD-EPI)non-race dependent 66 - PINF [facility] Comment on above: Reported eGFR is based on the CKD-EPI 2020 equation that does not use a race coefficient. Glucose [Mass/Vol] 94 mg/dL 65 - 99 mg/dL [facility] Potassium [Moles/Vol] 4.3 mmol/L 3.5 - 5.0 mmol/L [facility] Protein [Mass/Vol] 7.0 g/dL 6.0 - 8.0 g/dL [facility] Sodium [Moles/Vol] 145 mmol/L 134 - 146 mmol/L [facility] Urea nitrogen [Mass/Vol] 26 mg/dL 5 - 27 mg/dL [facility] HGB A1C (GLYCO-HGB)on 2023 Glucose [Mass/Vol] 146 mg/dL Normal [facility] Comment on above: Performed By: #### Jose Juan GERONIMO, CMP #### [facility] ([id number]) [address] [place] [address], [facility] [[email or web address]] [address] [place] [address] HbA1c (Bld) [Mass fraction] 6.7 % High 4.4-5.6 [facility] Comment on above: Result Comment: NOTE ADA Guidelines Result HgbA1c Normal : less than 5.7 % Prediabetes : 5.7 % to 6.4 % Diabetes : > 6.4 % Use with caution in patients with abnormal hemoglobin variants as the half-life of red blood cells and in vivo glycation rates are affected. Performed By: #### Jose Juan GERONIMO, CMP #### [facility] ([id number]) [address] [place] [address], [address] [place] [address] Hemoglobin A1con 12-03-2023 Average glucose Estimated from glycated hemoglobin (Bld) [Mass/Vol] 146 mg/dL [facility] HbA1c (Bld) [Mass fraction] 6.7 % High 4.4 - 5.6 % [facility] Comment on above: NOTE ADA Guidelines Result HgbA1c Normal : less than 5.7 % Prediabetes : 5.7 % to 6.4 % Diabetes : > 6.4 % Use with caution in patients with abnormal hemoglobin variants as the half-life of red blood cells and in vivo glycation rates are affected. Interpretation and review of laboratory results Abnormal [facility] URINALYSISon 12-03-2023 Bilirubin Ql (U) Negative Normal NEG [facility] BLOOD/HGB Negative Normal NEG [facility] Color (U) YELLOW Normal YELLOW [facility] Glucose Ql (U) >1000 Abnormal NEG [facility] Ketones Ql (U) Negative Normal NEG [facility] Leukocyte esterase Test strip Ql (U) Negative Normal NEG [facility] Comment on above: Result Comment: HIGH CONCENTRATIONS OF GLUCOSE MAY DECREASE THE REACTIVITY OF THE DIPSTICK LEUKOCYTE TEST PAD. Nitrite Ql (U) Negative Normal NEG [facility] pH (U) 6.5 [pH] Normal 5.0-8.5 [facility] Protein Ql (U) Negative Normal NEG [facility] Specific gravity (U) [Rel density] 1.033 Normal 1.003-1.035 [facility] TURBIDITY CLEAR Normal CLEAR [facility] Urobilinogen (U) [Mass/Vol] mg/dL Normal <1.1 [facility] URINE CULTUREon 12-03-2023 Bacteria identified Cx Nom (U) CULTURE RESULTS NO GROWTH AT <1000 CFU/mL Normal [facility] Comment on above: Performed By: #### 6 30-4 #### [facility] ([id number]) [address], [address] [place] [address] Urinalysison 12-03-2023 Bilirubin Ql (U) Negative Negative^Ne ga tive [facility] Color (U) YELLOW YELLOW^YELLOW [facility] Glucose (U) [Mass/Vol] mg/dL Abnormal Negative^Nega tive mg/dL [facility] Hemoglobin Auto test strip Ql (U) Negative Negative^Nega tive [facility] Interpretation and review of laboratory results Abnormal [facility] Ketones (U) [Mass/Vol] Negative Negative^Nega tive mg/dL [facility] Leukocyte esterase Auto test strip Ql (U) Negative Negative^Nega tive [facility] Comment on above: HIGH CONCENTRATIONS OF GLUCOSE MAY DECREASE THE REACTIVITY OF THE DIPSTICK LEUKOCYTE TEST PAD. Nitrite Auto test strip Ql (U) Negative Negative^Nega tive [facility] pH (U) 6.5 [pH] 5.0 - 8.5 [facility] Protein (U) [Mass/Vol] Negative Negative^Nega tive mg/dL [facility] Specific gravity Refractometry automated (U) [Rel density] 1.033 1.003 - 1.035 [facility] Turbidity Ql (U) CLEAR CLEAR^CLEAR [facility] Urobilinogen Qn (U) NINF [facility] [employer] XR CHEST 2 VWSon 12-03-2023 [...] Mackey MD on 12/03/2023 4:17 PM Normal [facility] XR Chest PA and Lateralon CHEST [...] Ricardo Mackey MD on 12/03/2023 4:17 PM [facility] observation (narrative) [facility] XR Chest PA and LateralOrder ed By: Ricardo Mackey on 12-03-2023 [facility] Work Phone: XR Knee - left 1 or 2 Viewso n 10-21-2023 Imaging Result: AP and lateral views of left knee showed severe varus deformity with [id number] articulation to the medial joint line, flattening [...] joint disease left knee with varus deformity [facility] Radiology Study observation (narrative) [facility] MLR HEMOGLOBIN A1Con 024 Glucose [Mass/Vol] 146 mg/dL [facility] HbA1c (Bld) [Mass fraction] 6.7 % High 4.5 - 6.2 % [facility] Comment on above: ADA RECOMMENDED LIMI T 4.0 - 6.0 ADA THERAPEUTIC TARGET < 7.0 ACTION SUGGESTED > 7.0 Interpretation and review of laboratory results Abnormal [facility] CBC AUTO DIFFon 11-13-2022 BASO # 0.0 103/ul Normal 0.0-0.1 [facility] Comment on above: Performed By: #### C BC #### [facility] [address] [place] [address] Dr. Demetris Allred Basophils/100 WBC (Bld) 0.4 % Normal 0.2-2.0 [facility] Comment on above: Performed By: #### C BC #### [facility] [address] [place] [address] Dr. Demetris Allred EO # 0.2 103/ul Normal 0.0-0.7 [facility] Comment on above: Performed By: #### C BC #### [facility] [address] [place] [address] Dr. Demetris Allred Eosinophils/100 WBC (Bld) 2.2 % Normal 0.9-7.0 [facility] Comment on above: Performed By: #### C BC #### [facility] [address] [place] [address] Dr. Demetris Allred Erythrocyte distribution width (RBC) [Ratio] 12.7 % Normal 11.0-15.0 [facility] Comment on above: Performed By: #### C BC #### [facility] [address] [place] [address] Dr. Demetris Allred Hematocrit (Bld) [Volume fraction] 44.8 % Normal 42.0-54.0 [facility] Comment on above: Performed By: #### C BC #### [facility] [address] [place] [address] Dr. Demetris Allred Hemoglobin (Bld) [Mass/Vol] 15.0 g/dL Normal 14.0-18.0 [facility] Comment on above: Performed By: #### C BC #### [facility] [address] [place] [address] Dr. Demetris Allred IG # 0.02 10e3/ul Normal 0.00-0.03 [facility] Comment on above: Performed By: #### C BC #### [facility] [address] [place] [address] Dr. Demetris Allred IG % 0.3 % Normal 0.0-0.5 [facility] Comment on above: Performed By: #### C BC #### [facility] [address] [place] [address] Dr. Demetris Allred LYMPH # 1.6 103/ul Normal 1.2-3.8 [facility] Comment on above: Performed By: #### C BC #### [facility] [address] [place] [address] Dr. Demetris Allred Lymphocytes/100 WBC (Bld) 19.9 % Critically low 20.5-60.0 [facility] Comment on above: Performed By: #### C BC #### [facility] [address] [place] [address] Dr. Demetris Allred MANUAL DIFF REQ NO Normal [facility] Comment on above: Performed By: #### C BC #### [facility] [address] [place] [address] Dr. Demetris Allred MCH (RBC) [Entitic mass] 30.2 pg Normal 25.9-34.0 [facility] Comment on above: Performed By: #### C BC #### [facility] [address] [place] [address] Dr. Demetris Allred MCHC (RBC) [Mass/Vol] 33.5 g/dL Normal 29.9-35.2 [facility] Comment on above: Performed By: #### C BC #### [facility] [address] [place] [address] Dr. Demetris Allred MCV (RBC) [Entitic vol] 90.1 fL Normal 80.0-94.0 [facility] Comment on above: Performed By: #### C BC #### [facility] [address] [place] [address] Dr. Demetris Allred MONO # 0.6 103/ul Normal 0.3-0.8 [facility] Comment on above: Performed By: #### C BC #### [facility] [address] [place] [address] Dr. Demetris Allred Monocytes/100 WBC (Bld) 8.2 % Normal 1.7-12.0 [facility] Comment on above: Performed By: #### C BC #### [facility] [address] [place] [address] Dr. Demetris Allred NEUT # 5.4 103/ul Normal 1.4-6.5 [facility] Comment on above: Performed By: #### C BC #### [facility] [address] [place] [address] Dr. Demetris Allred Neutrophils/100 WBC (Bld) 69.0 % Normal 43.0-75.0 [facility] Comment on above: Performed By: #### C BC #### [facility] [address] [place] [address] Dr. Demetris Allred Platelet mean volume (Bld) [Entitic vol] 9.6 fL Normal 9.5-13.5 [facility] Comment on above: Performed By: #### C BC #### [facility] [address] [place] [address] Dr. Demetris Allred PLT 169 103/ul Normal 150-450 [facility] Comment on above: Performed By: #### C BC #### [facility] [address] [place] [address] Dr. Demetris Allred RBC 4.97 106/ul Normal 4.70-6.10 [facility] Comment on above: Performed By: #### C BC #### [facility] [address] [place] [address] Dr. Demetris Allred WBC 7.8 103/ul Normal 4.0-11.0 [facility] Comment on above: Performed By: #### C BC #### [facility] [address] [place] [address] Dr. Demetris Allred GLYCOHEMOGLOBIN A1Con 2022 ADA RECOMMENDATION SEE BELOW Normal [facility] Comment on above: Result Comment: ADA RECOMMENDED LIMIT 4.0 - 6.0 ADA THERAPEUTIC TARGET < 7.0 ACTION SUGGESTED > 7.0 Performed By: #### A 1C #### [facility] [address] [place] [address] Dr. Demetris Allred Glucose [Mass/Vol] 206 mg/dL Normal [facility] Comment on above: Performed By: #### A 1C #### [facility] [address] [place] [address] Dr. Demetris Allred HbA1c (Bld) [Mass fraction] 8.8 % Critically high 4.5-6.2 [facility] Comment on above: Performed By: #### A 1C #### [facility] [address] [address] [address] Demetris Allred LIPID PROFILEon 11-13-2022 CHOL-HDL RATIO NORM SEE BELOW Normal [facility] Comment on above: Result Comment: 3.3 - 4.4 LOW RISK 4.4 - 7.1 AVERAGE RISK 7.1 - 11.0 MODERATE RISK >11.0 HIGH RISK Performed By: #### L IVER, LIPID, BMP #### [facility] [address] [address] [address] Demetris Allred Cholesterol [Mass/Vol] 137 mg/dL Normal <=200 [facility] Comment on above: Performed By: #### L IVER, LIPID, BMP #### [facility] [address] [address] [address] Demetris Allred Cholesterol in HDL [Mass/Vol] 35 mg/dL Critically low 40-60 [facility] Comment on above: Performed By: #### L IVER, LIPID, BMP #### [facility] [address] [address] [address] Demetris Allred Cholesterol in LDL [Mass/Vol] 24.2 mg/dL Normal [facility] Comment on above: Performed By: #### L IVER, LIPID, BMP #### [facility] [address] [address] [address] Demetris Allred Cholesterol.total/Ch olesterol in HDL [Mass ratio] 3.9 {ratio} Normal [facility] Comment on above: Performed By: #### L IVER, LIPID, BMP #### [facility] [address] [address] [address] Demetris Allred HDL NORMAL > or = 60 mg/dl - LO W CARDIOVASCULAR RISK <40 mg/dl - HIGH CARDIOVASCULAR RISK Normal [facility] Comment on above: Performed By: #### L IVER, LIPID, BMP #### [facility] [address] [address] [address] Demetris Allred LDL CALC NORMAL SEE BELOW Normal [facility] Comment on above: Result Comment: <100 mg/dl OPTIMAL 100 - 129 mg/dl NEAR OR ABOVE OPTIMAL 130 - 159 mg/dl BORDERLINE HIGH 160 - 189 mg/dl HIGH >190 mg/dl VERY HIGH Performed By: #### L IVER, LIPID, BMP #### [facility] [address] [address] [address] Demetris Allred Triglyceride [Mass/Vol] 389 mg/dL Critically high <=150 [facility] Comment on above: Performed By: #### L IVER, LIPID, BMP #### [facility] [address] [address] [address] Demetris Allred VLDL CALC 77.8 mg/dL Normal [facility] Comment on above: Performed By: #### L IVER, LIPID, BMP #### [facility] [address] [address] [address] Demetris Allred LIVER PROFILEon 11-13-2022 Albumin [Mass/Vol] 3.7 g/dL Normal 3.4-5.0 [facility] Comment on above: Performed By: #### L IVER, LIPID, BMP #### [facility] [address] [address] [address] Demetris Allred Albumin/Globulin [Mass ratio] 0.9 {ratio} Normal [facility] Comment on above: Performed By: #### L IVER, LIPID, BMP #### [facility] [address] [address] [address] Demetris Allred ALP [Catalytic activity/Vol] 133 U/L Critically high 46-116 [facility] Comment on above: Performed By: #### L IVER, LIPID, BMP #### [facility] [address] [address] [address] Demetris Allred ALT [Catalytic activity/Vol] 49 U/L Normal 16-63 [facility] Comment on above: Performed By: #### L IVER, LIPID, BMP #### [facility] [address] [address] [address] Demetris Allred AST [Catalytic activity/Vol] 31 U/L Normal 15-37 [facility] Comment on above: Performed By: #### L IVER, LIPID, BMP #### [facility] [address] [place] [address] Dr. Demetris Allred BILI, CONJUGATED 0.2 mg/dL Normal 0.0-0.2 [facility] Comment on above: Performed By: #### L IVER, LIPID, BMP #### [facility] [address] [place] [address] Dr. Demetris Allred Bilirubin [Mass/Vol] 1.0 mg/dL Normal 0.2-1.0 [facility] Comment on above: Performed By: #### L IVER, LIPID, BMP #### [facility] [address] [place] [address] Dr. Demetris Allred Globulin (S) [Mass/Vol] 4.1 g/dL Normal [facility] Comment on above: Performed By: #### L IVER, LIPID, BMP #### [facility] [address] [place] [address] Dr. Demetris Allred Protein [Mass/Vol] 7.8 g/dL Normal 6.4-8.2 [facility] Comment on above: Performed By: #### L IVER, LIPID, BMP #### [facility] [address] [place] [address] Dr. Demetris Allred MICROALBUMIN, RAND URon 03 mALB 2.7 mg/L Normal <=30.0 [facility] Comment on above: Performed By: #### M ALBR #### [facility] [address] [place] [address] Dr. Demetris Allred PROF CHEM 8 (BAS METB)on Anion gap [Moles/Vol] 12.4 mmol/L Normal [facility] Comment on above: Performed By: #### L IVER, LIPID, BMP #### [facility] [address] [place] [address] Dr. Demetris Allred Calcium [Mass/Vol] 9.5 mg/dL Normal 8.5-10.1 [facility] Comment on above: Performed By: #### L IVER, LIPID, BMP #### [facility] [address] [address] [address] Demetris Allred Chloride [Moles/Vol] 101 mmol/L Normal 98-107 [facility] Comment on above: Performed By: #### L IVER, LIPID, BMP #### [facility] [address] [address] [address] Demetris Allred CO2 [Moles/Vol] 28.9 mmol/L Normal 21.0-32.0 [facility] Comment on above: Performed By: #### L IVER, LIPID, BMP #### [facility] [address] [address] [address] Demetris Allred Creatinine [Mass/Vol] 0.81 mg/dL Normal 0.70-1.30 [facility] Comment on above: Performed By: #### L IVER, LIPID, BMP #### [facility] [address] [address] [address] Demetris Allred EGFR-AF MALTESE >60 Normal >=60 [facility] Comment on above: Performed By: #### L IVER, LIPID, BMP #### [facility] [address] [address] [address] Demetris Allred EGFR-NON AF MALTESE >60 Normal >=60 [facility] Comment on above: Performed By: #### L IVER, LIPID, BMP #### [facility] [address] [address] [address] Demetris Allred Glucose [Mass/Vol] 252 mg/dL Critically high 74-106 [facility] Comment on above: Performed By: #### L IVER, LIPID, BMP #### [facility] [address] [address] [address] Demetris Allred Potassium [Moles/Vol] 4.3 mmol/L Normal 3.5-5.1 [facility] Comment on above: Performed By: #### L IVER, LIPID, BMP #### [facility] [address] [address] [address] Demetris Allred Sodium [Moles/Vol] 138 mmol/L Normal 136-145 [facility] Comment on above: Performed By: #### L IVER, LIPID, BMP #### [facility] [address] [address] [address] Demetris Allred Urea nitrogen [Mass/Vol] 16.0 mg/dL Normal 7.0-18.0 [facility] Comment on above: Performed By: #### L IVER, LIPID, BMP #### [facility] [address] [address] [address] Demetris Allred Urea nitrogen/Creatinine [Mass ratio] 19.8 mg/mg Normal [facility] Comment on above: Performed By: #### L IVER, LIPID, BMP #### [facility] [address] [address] [address] Demetris Allred GLYCOHEMOGLOBIN A1Con 2021 ADA RECOMMENDATION SEE BELOW Normal [facility] Comment on above: Result Comment: ADA RECOMMENDED LIMIT 4.0 - 6.0 ADA THERAPEUTIC TARGET < 7.0 ACTION SUGGESTED > 7.0 Performed By: #### A 1C #### [facility] [address] [address] [address] Demetris Allred Glucose [Mass/Vol] 174 mg/dL Normal [facility] Comment on above: Performed By: #### A 1C #### [facility] [address] [address] [address] Demetris Allred HbA1c (Bld) [Mass fraction] 7.7 % Critically high 4.5-6.2 [facility] Comment on above: Performed By: #### A 1C #### [facility] [address] [address] [address] Demetris Allred POC GLUCOSE LABon 06-06-2019 Glucose [Mass/Vol] 174 mg/dL High 70-100 [facility] Comment on above: Performed By: #### 5 3629, 18922, 17755, 80124 #### [facility] [address] [place] [address], [facility] Glucose [Mass/Vol] 147 mg/dL High 70-100 [facility] Comment on above: Performed By: #### 5 3629, 16149, 88322, 55396 #### [facility] [address] [place] [address], [facility] UFH HEPARIN ASSAYon 06-06-20 19 UNFRACTIONATED HEPARIN 0.47 IU/mL Normal 0.30-0.70 [facility] Comment on above: Result Comment: Rosanne roxaban and Apixaban will interfere with the anti Xa assay used to monitor UFH and LMWH. Performed By: #### 5 3629, 28007, 77494, 18283 #### [facility] [address] [place] [address], [facility] BASIC METABOLIC PANELon 05-16 Calcium [Mass/Vol] 8.4 mg/dL Low 8.6-10.3 [facility] Comment on above: Order Comment: No: D o not add to previous draw Performed By: #### 5 3629, 99897, 55522, 58179 #### [facility] [address] [place] [id number], [facility] Chloride [Moles/Vol] 102 mmol/L Normal 98-107 [facility] Comment on above: Order Comment: No: D o not add to previous draw Performed By: #### 5 3629, 62136, 24173, 87650 #### [facility] [address] [place] [address], [place] CO2 [Moles/Vol] 25 mmol/L Normal 21-31 [facility] Comment on above: Order Comment: No: D o not add to previous draw Performed By: #### 5 3629, 38992, 28538, 35398 #### [facility] [address] [place] [address], [place] Creatinine [Mass/Vol] 0.95 mg/dL Normal 0.70-1.30 [facility] Comment on above: Order Comment: No: D o not add to previous draw Performed By: #### 5 3629, 45127, 94871, 15309 #### [facility] [address] [place] [address], [place] GFR/1.73 sq M predicted among blacks MDRD (S/P/Bld) [Vol rate/Area] mL/min/{1.73_m2} Normal >60 [facility] Comment on above: Order Comment: No: D o not add to previous draw Result Comment: Calc ulation may not be valid for patients over 70 years Performed By: #### 5 3629, 71011, 30871, 25303 #### [facility] [address] [place] [address], [place] GFR/1.73 sq M predicted among non-blacks MDRD (S/P/Bld) [Vol rate/Area] mL/min/{1.73_m2} Normal >60 [facility] Comment on above: Order Comment: No: D o not add to previous draw Result Comment: Calc ulation may not be valid for patients over 70 years Performed By: #### 5 3629, 44127, 81193, 54851 #### [facility] [address] [place] [address], [place] Glucose [Mass/Vol] 181 mg/dL High 70-100 [facility] Comment on above: Order Comment: No: D o not add to previous draw Performed By: #### 5 3629, 54329, 74882, 99019 #### [facility] [address] [place] [address], [place] Potassium [Moles/Vol] 3.8 mmol/L Normal 3.5-5.1 [facility] Comment on above: Order Comment: No: D o not add to previous draw Performed By: #### 5 3629, 06616, 21375, 33514 #### [facility] [address] [place] [address], [place] Sodium [Moles/Vol] 133 mmol/L Low 136-145 [facility] Comment on above: Order Comment: No: D o not add to previous draw Performed By: #### 5 3629, 82361, 14594, 68961 #### [facility] [address] [place] [address], [facility] Urea nitrogen [Mass/Vol] 19 mg/dL Normal 7-25 [facility] Comment on above: Order Comment: No: D o not add to previous draw Performed By: #### 5 362, 80402, 21085, 29783 #### [facility] [address] [place] [address], [facility] CBC COMPLETE BLOOD COUNTon 0 06-05-2019 Erythrocyte distribution width (RBC) [Ratio] 14.3 % Normal 11.5-15.0 [facility] Comment on above: Order Comment: No: D o not add to previous draw Performed By: #### 5 362, 00717, 40987, 08030 #### [facility] [address] [place] [address], [facility] Hematocrit (Bld) [Volume fraction] 39.1 % Normal 39.0-50.0 [facility] Comment on above: Order Comment: No: D o not add to previous draw Performed By: #### 5 362, 90145, 76320, 60941 #### [facility] [address] [place] [address], [facility] Hemoglobin (Bld) [Mass/Vol] 12.6 g/dL Low 13.0-17.0 [facility] Comment on above: Order Comment: No: D o not add to previous draw Performed By: #### 5 362, 25408, 68988, 79364 #### [facility] [address] [place] [address], [place] MCH (RBC) [Entitic mass] 28.8 pg Normal 27.0-33.0 [facility] Comment on above: Order Comment: No: D o not add to previous draw Performed By: #### 5 362, 69037, 35103, 37545 #### [facility] [address] [place] [address], [place] MCHC (RBC) [Mass/Vol] 32.2 g/dL Normal 32.0-35.0 [facility] Comment on above: Order Comment: No: D o not add to previous draw Performed By: #### 5 3629, 06042, 20206, 88775 #### [facility] [address] [place] [id number], [facility] MCV (RBC) [Entitic vol] 89.5 fL Normal 82.0-98.0 [facility] Comment on above: Order Comment: No: D o not add to previous draw Performed By: #### 5 362, 27290, 59673, 80000 #### [facility] [address] [place] [address], [facility] Nucleated RBC/100 WBC (Bld) [Ratio] 0 % Normal 0-0 The [facility] Comment on above: Order Comment: No: D o not add to previous draw Performed By: #### 5 3629, 87883, 06085, 44994 #### [facility] [address] [place] [address], [facility] PLAT CNT 142 10*3/uL Low 150-400 The [facility] Comment on above: Order Comment: No: D o not add to previous draw Performed By: #### 5 3629, 29969, 58892, 96724 #### [facility] [address] [place] [id number], [facility] RBC (Bld) [#/Vol] 4.37 10*6/uL Normal 4.20-5.70 The [facility] Comment on above: Order Comment: No: D o not add to previous draw Performed By: #### 5 3629, 43143, 47193, 25773 #### [facility] [address] [place] [address], [place] WBC (Bld) [#/Vol] 5.94 10*3/uL Normal 4.00-10.60 The [facility] Comment on above: Order Comment: No: D o not add to previous draw Performed By: #### 5 3629, 47757, 10446, 85027 #### [facility] [address] [place] [address], [place] POC GLUCOSE LABon 06-05-2019 Glucose [Mass/Vol] 187 mg/dL High 70-100 [facility] on above: Performed By: #### 5 3629, 53152, 48946, 47707 #### [facility] [address] [place] [address], [place] Glucose [Mass/Vol] 218 mg/dL High 70-100 [facility] Comment on above: Performed By: #### 5 3629, 56250, 24717, 92618 #### [facility] [address] [place] [address], [place] Glucose [Mass/Vol] 190 mg/dL High 70-100 [facility] Comment on above: Performed By: #### 5 3629, 08627, 72753, 90420 #### [facility] [address] [place] [address], [place] Glucose [Mass/Vol] 184 mg/dL High 70-100 [facility] Comment on above: Performed By: #### 5 3629, 93619, 47775, 85642 #### [facility] [address] [place] [address], [place] Glucose [Mass/Vol] 180 mg/dL High 70-100 [facility] Comment on above: Performed By: #### 5 3629, 85863, 30618, 52443 #### [facility] [address] [place] [address], [place] UFH HEPARIN ASSAYon 06-05-20 19 UNFRACTIONATED HEPARIN 0.41 IU/mL Normal 0.30-0.70 [facility] Comment on above: Result Comment: Rosanne roxaban and Apixaban will interfere with the anti Xa assay used to monitor UFH and LMWH. Performed By: #### 5 3629, 92808, 49965, 31383 #### [facility] [address] [place] [address], [facility] BASIC METABOLIC PANELon 09-2 Calcium [Mass/Vol] 8.4 mg/dL Low 8.6-10.3 [facility] Comment on above: Order Comment: No: D o not add to previous draw Performed By: #### 5 3629, 78700, 54154, 40983 #### [facility] [address] [place] [address], [place] Chloride [Moles/Vol] 102 mmol/L Normal 98-107 [facility] Comment on above: Order Comment: No: D o not add to previous draw Performed By: #### 5 3629, 99109, 36972, 79909 #### [facility] [address] [place] [address], [place] CO2 [Moles/Vol] 26 mmol/L Normal 21-31 [facility] Comment on above: Order Comment: No: D o not add to previous draw Performed By: #### 5 3629, 94453, 71026, 55491 #### [facility] [address] [place] [address], [place] Creatinine [Mass/Vol] 0.93 mg/dL Normal 0.70-1.30 [facility] Comment on above: Order Comment: No: D o not add to previous draw Performed By: #### 5 3629, 74465, 40146, 42660 #### [facility] [address] [place] [address], [facility] GFR/1.73 sq M predicted among blacks MDRD (S/P/Bld) [Vol rate/Area] mL/min/{1.73_m2} Normal >60 [facility] Comment on above: Order Comment: No: D o not add to previous draw Result Comment: Calc ulation may not be valid for patients over 70 years Performed By: #### 5 3629, 26316, 03052, 32078 #### [facility] [address] [place] [address], [place] GFR/1.73 sq M predicted among non-blacks MDRD (S/P/Bld) [Vol rate/Area] mL/min/{1.73_m2} Normal >60 [facility] Comment on above: Order Comment: No: D o not add to previous draw Result Comment: Calc ulation may not be valid for patients over 70 years Performed By: #### 5 3629, 84299, 87254, 42132 #### [facility] [address] [place] [address], [place] Glucose [Mass/Vol] 159 mg/dL High 70-100 The [facility] Comment on above: Order Comment: No: D o not add to previous draw Performed By: #### 5 3629, 22469, 87666, 17770 #### [facility] [address] [place] [address], [place] Potassium [Moles/Vol] 4.4 mmol/L Normal 3.5-5.1 [facility] Comment on above: Order Comment: No: D o not add to previous draw Performed By: #### 5 3629, 82713, 75493, 57355 #### [facility] [address] [place] [address], [place] Sodium [Moles/Vol] 135 mmol/L Low 136-145 [facility] Comment on above: Order Comment: No: D o not add to previous draw Performed By: #### 5 3629, 51021, 23684, 14929 #### [facility] [address] [place] [address], [place] Urea nitrogen [Mass/Vol] 17 mg/dL Normal 7-25 [facility] Comment on above: Order Comment: No: D o not add to previous draw Performed By: #### 5 3629, 42238, 59676, 14644 #### [facility] [address] [place] [address], [facility] CBC W/DIFFon 06-04-2019 ABS BASOPHILS 0.0 10*3/uL Normal 0.0-0.2 The [facility] Comment on above: Order Comment: No: D o not add to previous draw Performed By: #### 5 3629, 51343, 44575, 81169 #### [facility] [address] [place] [address], [facility] ABS IMM GRANS 0.0 10*3/uL Normal 0.0-0.2 [facility] Comment on above: Order Comment: No: D o not add to previous draw Performed By: #### 5 3629, 49121, 94774, 73376 #### [facility] [address] [facility] [place] [address], [facility] ABS NEUTROPHILS 5.7 10*3/uL Normal 1.6-7.6 The [facility] Comment on above: Order Comment: No: D o not add to previous draw Performed By: #### 5 3629, 08474, 43424, 37685 #### [facility] [address] [facility] [place] [address], [facility] Basophils/100 WBC (Bld) 0.4 % Normal 0.0-1.0 [facility] Comment on above: Order Comment: No: D o not add to previous draw Performed By: #### 5 3629, 54745, 93111, 06383 #### [facility] [address] [facility] [place] [address], [facility] Eosinophils (Bld) [#/Vol] 0.1 10*3/uL Normal 0.0-0.5 [facility] Comment on above: Order Comment: No: D o not add to previous draw Performed By: #### 5 3629, 19851, 28502, 74651 #### [facility] [address] [place] [id number], [facility] Eosinophils/100 WBC (Bld) 1.7 % Normal 0.0-6.0 [facility] Comment on above: Order Comment: No: D o not add to previous draw Performed By: #### 5 3629, 10578, 07166, 98009 #### [facility] [address] [place] [address], [facility] Erythrocyte distribution width (RBC) [Ratio] 14.3 % Normal 11.5-15.0 [facility] Comment on above: Order Comment: No: D o not add to previous draw Performed By: #### 5 362, 39558, 04492, 55444 #### [facility] [address] [place] [address], [facility] Hematocrit (Bld) [Volume fraction] 42.7 % Normal 39.0-50.0 [facility] Comment on above: Order Comment: No: D o not add to previous draw Performed By: #### 5 362, 98462, 41393, 50501 #### [facility] [address] [place] [address], [facility] Hemoglobin (Bld) [Mass/Vol] 13.6 g/dL Normal 13.0-17.0 [facility] Comment on above: Order Comment: No: D o not add to previous draw Performed By: #### 5 3629, 94788, 97123, 06398 #### [facility] [address] [place] [address], [facility] IMMATURE GRANS 0.3 % Normal 0.0-1.0 The [facility] Comment on above: Order Comment: No: D o not add to previous draw Performed By: #### 5 362, 23276, 43624, 27967 #### [facility] [address] [place] [address], [facility] Lymphocytes (Bld) [#/Vol] 1.3 10*3/uL Normal 1.2-4.0 [facility] Comment on above: Order Comment: No: D o not add to previous draw Performed By: #### 5 362, 30481, 20052, 50589 #### [facility] [address] [place] [address], [facility] Lymphocytes/100 WBC (Bld) 16.9 % Low 20.0-45.0 [facility] Comment on above: Order Comment: No: D o not add to previous draw Performed By: #### 5 362, 54826, 06412, 07304 #### [facility] [address] [place] [address], [facility] MCH (RBC) [Entitic mass] 28.9 pg Normal 27.0-33.0 [facility] Comment on above: Order Comment: No: D o not add to previous draw Performed By: #### 5 362, 76118, 59012, 29884 #### [facility] [address] [facility] [place] [address], [facility] MCHC (RBC) [Mass/Vol] 31.9 g/dL Low 32.0-35.0 [facility] Comment on above: Order Comment: No: D o not add to previous draw Performed By: #### 5 362, 62638, 65207, 84923 #### [facility] [address] [facility] [place] [address], [facility] MCV (RBC) [Entitic vol] 90.9 fL Normal 82.0-98.0 [facility] Comment on above: Order Comment: No: D o not add to previous draw Performed By: #### 5 362, 59111, 36206, 91626 #### [facility] [address] [facility] [place] [address], [facility] Monocytes (Bld) [#/Vol] 0.6 10*3/uL Normal 0.1-1.0 [facility] Comment on above: Order Comment: No: D o not add to previous draw Performed By: #### 5 362, 51341, 43858, 96275 #### [facility] [address] [place] [address], [place] MONOS 7.5 % Normal 5.0-12.0 [facility] Comment on above: Order Comment: No: D o not add to previous draw Performed By: #### 5 3629, 56098, 73391, 64503 #### [facility] [address] [place] [address], [place] Neutrophils/100 WBC (Bld) 73.2 % High 40.0-72.0 [facility] Comment on above: Order Comment: No: D o not add to previous draw Performed By: #### 5 3629, 18814, 97645, 46563 #### [facility] [address] [place] [address], [place] Nucleated RBC/100 WBC (Bld) [Ratio] 0 % Normal 0-0 [facility] Comment on above: Order Comment: No: D o not add to previous draw Performed By: #### 5 3629, 99307, 36240, 51383 #### [facility] [address] [place] [address], [place] PLAT CNT 153 10*3/uL Normal 150-400 [facility] Comment on above: Order Comment: No: D o not add to previous draw Performed By: #### 5 3629, 29424, 40014, 02450 #### [facility] [address] [place] [address], [place] RBC (Bld) [#/Vol] 4.70 10*6/uL Normal 4.20-5.70 The [facility] Comment on above: Order Comment: No: D o not add to previous draw Performed By: #### 5 3629, 16965, 50359, 75146 #### [facility] [address] [place] [address], [place] WBC (Bld) [#/Vol] 7.83 10*3/uL Normal 4.00-10.60 The [facility] Comment on above: Order Comment: No: D o not add to previous draw Performed By: #### 5 3629, 17403, 87686, 60814 #### [facility] [address] [place] [address], [place] MAGNESIUM BLOODon 06-04-2019 Magnesium [Mass/Vol] 2.0 mg/dL Normal 1.9-2.7 [facility] Comment on above: Order Comment: No: D o not add to previous draw Performed By: #### 5 3629, 88879, 52398, 17569 #### [facility] [address] [place] [address], [place] PHOSPHORUS BLOODon 9 Phosphate [Mass/Vol] 2.4 mg/dL Low 2.5-5.0 [facility] Comment on above: Order Comment: No: D o not add to previous draw Performed By: #### 5 3629, 64882, 15038, 62388 #### [facility] [address] [place] [address], [place] POC GLUCOSE LABon 06-04-2019 Glucose [Mass/Vol] 176 mg/dL High 70-100 [facility] Comment on above: Performed By: #### 5 3629, 75118, 17817, 01492 #### [facility] [address] [place] [address], [place] Glucose [Mass/Vol] 188 mg/dL High 70-100 [facility] Comment on above: Performed By: #### 5 3629, 90859, 44132, 60818 #### [facility] [address] [place] [address], [place] Glucose [Mass/Vol] 162 mg/dL High 70-100 [facility] Comment on above: Performed By: #### 5 3629, 83551, 35951, 81288 #### [facility] [address] [place] [address], [place] UFH HEPARIN ASSAYon 06-04-20 19 UNFRACTIONATED HEPARIN 0.46 IU/mL Normal 0.30-0.70 [facility] Comment on above: Result Comment: Rosanne roxaban and Apixaban will interfere with the anti Xa assay used to monitor UFH and LMWH. Performed By: #### 5 3629, 53592, 79715, 95539 #### [facility] [address] [place] [address], [facility] UNFRACTIONATED HEPARIN 0.42 IU/mL Normal 0.30-0.70 [facility] Comment on above: Result Comment: [place] roxaban and Apixaban will interfere with the anti Xa assay used to monitor UFH and LMWH. Performed By: #### 5 3629, 87465, 07756, 91678 #### [facility] [address] [place] [address], [facility] UNFRACTIONATED HEPARIN 0.39 IU/mL Normal 0.30-0.70 [facility] Comment on above: Result Comment: [place] roxaban and Apixaban will interfere with the anti Xa assay used to monitor UFH and LMWH. Performed By: #### 5 3629, 05938, 42812, 94556 #### [facility] [address] [place] [address], [facility] UNFRACTIONATED HEPARIN 0.12 IU/mL Critically low 0.30-0.70 [facility] Comment on above: Result Comment: [place] roxaban and Apixaban will interfere with the anti Xa assay used to monitor UFH and LMWH. RESULTS CHECKED AND CALLED. ACCURATELY READ BACK BY LEANNE BEATTY RN @ 0022 on 06-04-19 Performed By: #### 5 3629, 14394, 05456, 15782 #### [facility] [address] [place] [address], [facility] BASIC METABOLIC PANELon 09-2 Calcium [Mass/Vol] 8.3 mg/dL Low 8.6-10.3 [facility] Comment on above: Order Comment: No: D o not add to previous draw Performed By: #### 3 1046, 23078, 07635, 36115 #### [facility] [address] [place] [address], [place] Chloride [Moles/Vol] 103 mmol/L Normal 98-107 [facility] Comment on above: Order Comment: No: D o not add to previous draw Performed By: #### 3 1046, 44349, 04033, 29048 #### [facility] [address] [place] [address], [place] CO2 [Moles/Vol] 23 mmol/L Normal 21-31 [facility] Comment on above: Order Comment: No: D o not add to previous draw Performed By: #### 3 1046, 20617, 32964, 95942 #### [facility] [address] [place] [address], [place] Creatinine [Mass/Vol] 0.88 mg/dL Normal 0.70-1.30 [facility] Comment on above: Order Comment: No: D o not add to previous draw Performed By: #### 3 1046, 18995, 33496, 04614 #### [facility] [address] [place] [address], [place] GFR/1.73 sq M predicted among blacks MDRD (S/P/Bld) [Vol rate/Area] mL/min/{1.73_m2} Normal >60 [facility] Comment on above: Order Comment: No: D o not add to previous draw Result Comment: Calc ulation may not be valid for patients over 70 years Performed By: #### 3 1046, 76050, 22653, 05561 #### [facility] [address] [place] [address], [place] GFR/1.73 sq M predicted among non-blacks MDRD (S/P/Bld) [Vol rate/Area] mL/min/{1.73_m2} Normal >60 [facility] Comment on above: Order Comment: No: D o not add to previous draw Result Comment: Calc ulation may not be valid for patients over 70 years Performed By: #### 3 1046, 49853, 75605, 32172 #### [facility] [address] [place] [id number], [facility] Glucose [Mass/Vol] 152 mg/dL High 70-100 The [facility] Comment on above: Order Comment: No: D o not add to previous draw Performed By: #### 3 1046, 58385, 66505, 05547 #### [facility] [address] [place] [address], [facility] Potassium [Moles/Vol] 4.2 mmol/L Normal 3.5-5.1 [facility] Comment on above: Order Comment: No: D o not add to previous draw Performed By: #### 3 1046, 68450, 99168, 05038 #### [facility] [address] [place] [id number], [facility] Sodium [Moles/Vol] 134 mmol/L Low 136-145 [facility] Comment on above: Order Comment: No: D o not add to previous draw Performed By: #### 3 1046, 27351, 51488, 12534 #### [facility] [address] [facility] [place] [address], [facility] Urea nitrogen [Mass/Vol] 14 mg/dL Normal 7-25 [facility] Comment on above: Order Comment: No: D o not add to previous draw Performed By: #### 3 1046, 83606, 24296, 59260 #### [facility] [address] [facility] [place] [address], [facility] CBC W/DIFFon 06-03-2019 ABS BASOPHILS 0.0 10*3/uL Normal 0.0-0.2 The [facility] Comment on above: Order Comment: No: D o not add to previous draw Performed By: #### 3 1046, 39220, 22707, 44552 #### [facility] [address] [place] [address], [facility] ABS IMM GRANS 0.0 10*3/uL Normal 0.0-0.2 [facility] Comment on above: Order Comment: No: D o not add to previous draw Performed By: #### 3 1046, 42585, 82225, 59019 #### [facility] [address] [place] [address], [facility] ABS NEUTROPHILS 6.9 10*3/uL Normal 1.6-7.6 [facility] Comment on above: Order Comment: No: D o not add to previous draw Performed By: #### 3 1046, 91415, 49032, 05183 #### [facility] [address] [place] [address], [facility] Basophils/100 WBC (Bld) 0.4 % Normal 0.0-1.0 [facility] Comment on above: Order Comment: No: D o not add to previous draw Performed By: #### 3 1046, 60949, 00885, 97164 #### [facility] [address] [place] [address], [facility] Eosinophils (Bld) [#/Vol] 0.1 10*3/uL Normal 0.0-0.5 [facility] Comment on above: Order Comment: No: D o not add to previous draw Performed By: #### 3 1046, 77107, 80735, 43851 #### [facility] [address] [facility] [place] [address], [facility] Eosinophils/100 WBC (Bld) 0.8 % Normal 0.0-6.0 [facility] Comment on above: Order Comment: No: D o not add to previous draw Performed By: #### 3 1046, 10940, 31997, 53452 #### [facility] [address] [facility] [place] [address], [place] Erythrocyte distribution width (RBC) [Ratio] 14.3 % Normal 11.5-15.0 [facility] Comment on above: Order Comment: No: D o not add to previous draw Performed By: #### 3 1046, 36412, 16356, 62397 #### [facility] [address] [place] [address], [facility] Hematocrit (Bld) [Volume fraction] 45.0 % Normal 39.0-50.0 [facility] Comment on above: Order Comment: No: D o not add to previous draw Performed By: #### 3 1046, 18968, 15961, 12411 #### [facility] [address] [place] [id number], [facility] Hemoglobin (Bld) [Mass/Vol] 14.5 g/dL Normal 13.0-17.0 [facility] Comment on above: Order Comment: No: D o not add to previous draw Performed By: #### 3 1046, 00701, 36972, 88184 #### [facility] [address] [place] [id number], [facility] IMM PLATELET FRAC 3.3 % Normal 0.8-6.3 [facility] Comment on above: Order Comment: No: D o not add to previous draw Performed By: #### 3 1046, 43814, 01205, 07550 #### [facility] [address] [place] [address], [facility] IMMATURE GRANS 0.3 % Normal 0.0-1.0 [facility] Comment on above: Order Comment: No: D o not add to previous draw Performed By: #### 3 1046, 28965, 64758, 81144 #### [facility] [address] [place] [address], [facility] Lymphocytes (Bld) [#/Vol] 1.2 10*3/uL Normal 1.2-4.0 [facility] Comment on above: Order Comment: No: D o not add to previous draw Performed By: #### 3 1046, 42526, 94742, 98781 #### [facility] [address] [place] [id number], [place] Lymphocytes/100 WBC (Bld) 13.5 % Low 20.0-45.0 [facility] Comment on above: Order Comment: No: D o not add to previous draw Performed By: #### 3 1046, 78092, 61622, 11538 #### [facility] [address] [place] [id number], [facility] MCH (RBC) [Entitic mass] 29.1 pg Normal 27.0-33.0 [facility] Comment on above: Order Comment: No: D o not add to previous draw Performed By: #### 3 1046, 44804, 96008, 46274 #### [facility] [address] [place] [address], [facility] MCHC (RBC) [Mass/Vol] 32.2 g/dL Normal 32.0-35.0 [facility] Comment on above: Order Comment: No: D o not add to previous draw Performed By: #### 3 1046, 96248, 59231, 50754 #### [facility] [address] [place] [address], [facility] MCV (RBC) [Entitic vol] 90.2 fL Normal 82.0-98.0 [facility] Comment on above: Order Comment: No: D o not add to previous draw Performed By: #### 3 1046, 61101, 66615, 16599 #### [facility] [address] [place] [address], [facility] Monocytes (Bld) [#/Vol] 0.7 10*3/uL Normal 0.1-1.0 [facility] Comment on above: Order Comment: No: D o not add to previous draw Performed By: #### 3 1046, 21791, 80103, 79792 #### [facility] [address] [place] [address], [place] MONOS 7.8 % Normal 5.0-12.0 [facility] Comment on above: Order Comment: No: D o not add to previous draw Performed By: #### 3 1046, 91299, 67246, 68996 #### [facility] [address] [place] [address], [facility] Neutrophils/100 WBC (Bld) 77.2 % High 40.0-72.0 [facility] Comment on above: Order Comment: No: D o not add to previous draw Performed By: #### 3 1046, 32731, 97957, 16624 #### [facility] [address] [place] [address], [place] Nucleated RBC/100 WBC (Bld) [Ratio] 0 % Normal 0-0 [facility] Comment on above: Order Comment: No: D o not add to previous draw Performed By: #### 3 1046, 69035, 16838, 82164 #### [facility] [address] [place] [id number], [place] PLAT CNT 134 10*3/uL Low 150-400 [facility] Comment on above: Order Comment: No: D o not add to previous draw Performed By: #### 3 1046, 72269, 11099, 88030 #### [facility] [address] [place] [id number], [facility] RBC (Bld) [#/Vol] 4.99 10*6/uL Normal 4.20-5.70 [facility] Comment on above: Order Comment: No: D o not add to previous draw Performed By: #### 3 1046, 39923, 47561, 32439 #### [facility] [address] [place] [address], [place] WBC (Bld) [#/Vol] 8.90 10*3/uL Normal 4.00-10.60 The [facility] Comment on above: Order Comment: No: D o not add to previous draw Performed By: #### 3 1046, 16544, 68634, 97087 #### [facility] [address] Cardiovascular Lab Reporton 06-03-2019 Cardiovascular Lab Report [facility] Patient Name: Serge Shine [facility] MR #: [id number] Physician: Willie Madrigal [facility] Service Date: 06/02/2019 Division of Birthdate: 1945 Cardiology Room #: 3CD [id number] Adult Cardiovascular Services [facility] [address] [place], [place] [address] Cardiovascular Laboratory Report INDICATION: The patient is [...] signed informed consent. He was brought to analyst microbiology lab in a fasting state. The right wrist area was prepped and draped in usual fashion. Modified Mason's test was favorable. Access in the right radial artery was obtained. Using micropuncture technique, a 6-Guatemalan x 11 cm Hydrophilic sheath was advanced. Verapamil was given through the sheath and heparin was administered intravenously. Bilateral selective coronary angiography was then performed using 6-Guatemalan JL3.5 and JR4 diagnostic catheters. Note that initial catheter advancement over the brachial area was facilitated using an angled Glidewire. Catheters were removed. Therapeutic ACT was confirmed during the rest of the procedure. A 6-Guatemalan JR4 guiding catheter was advanced and used to engage the right coronary ostium. A Daylifewater wire was advanced to the distal RCA. Balloon angioplasty in the mid RCA was performed using an Emerge 3.5 x 12 mm balloon inflated at 10 atmospheres. Angiography revealed suboptimal results. This was treated using deployment of a Synergy 3.5 x 20 mm drug-eluting stent deployed at 11 atmospheres and post dilated using NC Quantum Willoughby 3.5 x 15 mm noncompliant balloon inflated at 18 atmospheres throughout the length of the stented segment. Additional postdilatation using NC Quantum Willoughby 4.0 x 8 mm noncompliant balloon was [...] Del Cid M.D. Date Trans: 06/03/2019 04:36 A/elías [id number] cc: Benedict Vallecillo M.D. [address] [facility] [address] Normal [facility] MAGNESIUM BLOODon 06-03-2019 Magnesium [Mass/Vol] 1.9 mg/dL Normal 1.9-2.7 [facility] Comment on above: Order Comment: No: D o not add to previous draw Performed By: #### 3 1046, 10374, 70227, 18443 #### [facility] [address] [facility], [place] [address], [facility] PHOSPHORUS BLOODon 9 Phosphate [Mass/Vol] 2.3 mg/dL Low 2.5-5.0 [facility] Comment on above: Order Comment: No: D o not add to previous draw Performed By: #### 3 1046, 74074, 46118, 51122 #### [facility] [address] [place] [address], [place] POC GLUCOSE LABon 06-03-2019 Glucose [Mass/Vol] 175 mg/dL High 70-100 [facility] Comment on above: Performed By: #### 5 3629, 72134, 99479, 03695 #### [facility] [address] [place] [address], [place] Glucose [Mass/Vol] 223 mg/dL High 70-100 [facility] Comment on above: Performed By: #### 5 3629, 63074, 91747, 72964 #### [facility] 3000 [facility]. [address] Glucose [Mass/Vol] 156 mg/dL High 70-100 [facility] Comment on above: Performed By: #### 5 3629, 40535, 36292, 15677 #### [facility] [address] [facility]. [address] UFH HEPARIN ASSAYon 06-03-20 19 UNFRACTIONATED HEPARIN 0.20 IU/mL Low 0.30-0.70 [facility] Comment on above: Result Comment: Corning roxaban and Apixaban will interfere with the anti Xa assay used to monitor UFH and LMWH. Performed By: #### 5 3629, 02358, 02127, 65717 #### [facility] [address] [facility]. [address] UNFRACTIONATED HEPARIN <0.10 Critically low 0.30-0.70 [facility] Comment on above: Result Comment: Rosanne roxaban and Apixaban will interfere with the anti Xa assay used to monitor UFH and LMWH. Result called to TRAVIS ANDREW 0737 Performed By: #### 5 3629, 39995, 67816, 15543 #### [facility] [address] [facility]. [address] BASIC METABOLIC PANELon 05-15 Calcium [Mass/Vol] 8.4 mg/dL Low 8.6-10.3 [facility] Comment on above: Order Comment: No: D o not add to previous draw Performed By: #### 3 1046, 36033, 26816, 05542 #### [facility] [address] [facility]. [address] Chloride [Moles/Vol] 103 mmol/L Normal 98-107 [facility] Comment on above: Order Comment: No: D o not add to previous draw Performed By: #### 3 1046, 60099, 77475, 98319 #### [facility] [address] [place] [address], [place] CO2 [Moles/Vol] 26 mmol/L Normal 21-31 [facility] Comment on above: Order Comment: No: D o not add to previous draw Performed By: #### 3 1046, 12611, 41251, 36474 #### [facility] [address] [place] [address], [place] Creatinine [Mass/Vol] 1.07 mg/dL Normal 0.70-1.30 [facility] Comment on above: Order Comment: No: D o not add to previous draw Performed By: #### 3 1046, 80472, 35540, 36552 #### [facility] [address] [place] [address], [place] GFR/1.73 sq M predicted among blacks MDRD (S/P/Bld) [Vol rate/Area] mL/min/{1.73_m2} Normal >60 [facility] Comment on above: Order Comment: No: D o not add to previous draw Result Comment: Calc ulation may not be valid for patients over 70 years Performed By: #### 3 1046, 12534, 67562, 67539 #### [facility] [address] [place] [address], [place] GFR/1.73 sq M predicted among non-blacks MDRD (S/P/Bld) [Vol rate/Area] mL/min/{1.73_m2} Normal >60 [facility] Comment on above: Order Comment: No: D o not add to previous draw Result Comment: Calc ulation may not be valid for patients over 70 years Performed By: #### 3 1046, 79336, 41194, 28817 #### [facility] [address] [place] [address], [place] Glucose [Mass/Vol] 155 mg/dL High 70-100 [facility] Comment on above: Order Comment: No: D o not add to previous draw Performed By: #### 3 1046, 30776, 44892, 19331 #### [facility] [address] [place] [address], [facility] Potassium [Moles/Vol] 4.7 mmol/L Normal 3.5-5.1 [facility] Comment on above: Order Comment: No: D o not add to previous draw Performed By: #### 3 1046, 15684, 50084, 69441 #### [facility] [address] [place] [address], [place] Sodium [Moles/Vol] 135 mmol/L Low 136-145 [facility] Comment on above: Order Comment: No: D o not add to previous draw Performed By: #### 3 1046, 61731, 55617, 51640 #### [facility] [address] [place] [address], [facility] Urea nitrogen [Mass/Vol] 17 mg/dL Normal 7-25 [facility] Comment on above: Order Comment: No: D o not add to previous draw Performed By: #### 3 1046, 25355, 27349, 28091 #### [facility] [address] [place] [address], [facility] CBC COMPLETE BLOOD COUNTon 0 - Erythrocyte distribution width (RBC) [Ratio] 14.3 % Normal 11.5-15.0 [facility] Comment on above: Order Comment: No: D o not add to previous draw Performed By: #### 3 1046, 51970, 47844, 50503 #### [facility] [address] [place] [address], [facility] Hematocrit (Bld) [Volume fraction] 46.3 % Normal 39.0-50.0 [facility] Comment on above: Order Comment: No: D o not add to previous draw Performed By: #### 3 1046, 39855, 84211, 90219 #### [facility] [address] [place] [address], [facility] Hemoglobin (Bld) [Mass/Vol] 14.7 g/dL Normal 13.0-17.0 [facility] Comment on above: Order Comment: No: D o not add to previous draw Performed By: #### 3 1046, 79860, 83145, 81084 #### [facility] [address] [place] [address], [facility] IMM PLATELET FRAC 3.4 % Normal 0.8-6.3 [facility] Comment on above: Order Comment: No: D o not add to previous draw Performed By: #### 3 1046, 33172, 29199, 02673 #### [facility] [address] [place] [id number], [facility] MCH (RBC) [Entitic mass] 29.0 pg Normal 27.0-33.0 [facility] Comment on above: Order Comment: No: D o not add to previous draw Performed By: #### 3 1046, 80372, 60065, 16416 #### [facility] [address] [facility] [address] [place] [id number], [facility] MCHC (RBC) [Mass/Vol] 31.7 g/dL Low 32.0-35.0 [facility] Comment on above: Order Comment: No: D o not add to previous draw Performed By: #### 3 1046, 68336, 78535, 03105 #### [facility] [address] [place] [id number], [facility] MCV (RBC) [Entitic vol] 91.3 fL Normal 82.0-98.0 [facility] Comment on above: Order Comment: No: D o not add to previous draw Performed By: #### 3 1046, 35891, 83063, 51806 #### [facility] [address] [place] [address], [facility] Nucleated RBC/100 WBC (Bld) [Ratio] 0 % Normal 0-0 The [facility] Comment on above: Order Comment: No: D o not add to previous draw Performed By: #### 3 1046, 86358, 18543, 42775 #### [facility] [address] [place] [address], [facility] PLAT CNT 125 10*3/uL Low 150-400 The [facility] Comment on above: Order Comment: No: D o not add to previous draw Performed By: #### 3 1046, 81301, 51286, 68566 #### [facility] [address] [place] [address], [facility] RBC (Bld) [#/Vol] 5.07 10*6/uL Normal 4.20-5.70 [facility] Comment on above: Order Comment: No: D o not add to previous draw Performed By: #### 3 1046, 01407, 68597, 75786 #### [facility] [address] [place] [address], [facility] WBC (Bld) [#/Vol] 8.85 10*3/uL Normal 4.00-10.60 [facility] Comment on above: Order Comment: No: D o not add to previous draw Performed By: #### 3 1046, 85343, 97628, 66166 #### [facility] [address] [place] [address], [facility] Erythrocyte distribution width (RBC) [Ratio] 14.0 % Normal 11.5-15.0 [facility] Comment on above: Order Comment: No: D o not add to previous draw Performed By: #### 3 1046, 68051, 04058, 95144 #### [facility] [address] [place] [address], [facility] Hematocrit (Bld) [Volume fraction] 45.2 % Normal 39.0-50.0 [facility] Comment on above: Order Comment: No: D o not add to previous draw Performed By: #### 3 1046, 93849, 53782, 73443 #### [facility] [address] [place] [address], [facility] Hemoglobin (Bld) [Mass/Vol] 14.2 g/dL Normal 13.0-17.0 [facility] Comment on above: Order Comment: No: D o not add to previous draw Performed By: #### 3 1046, 64645, 94318, 56624 #### [facility] [address] [place] [address], [facility] IMM PLATELET FRAC 3.8 % Normal 0.8-6.3 [facility] Comment on above: Order Comment: No: D o not add to previous draw Performed By: #### 3 1046, 53212, 82672, 72932 #### [facility] [address] [place] [id number], [facility] MCH (RBC) [Entitic mass] 28.9 pg Normal 27.0-33.0 [facility] Comment on above: Order Comment: No: D o not add to previous draw Performed By: #### 3 1046, 94198, 82837, 75234 #### [facility] [address] [place] [address], [facility] MCHC (RBC) [Mass/Vol] 31.4 g/dL Low 32.0-35.0 [facility] Comment on above: Order Comment: No: D o not add to previous draw Performed By: #### 3 1046, 14275, 56337, 56807 #### [facility] [address] [place] [address], [facility] MCV (RBC) [Entitic vol] 92.1 fL Normal 82.0-98.0 [facility] Comment on above: Order Comment: No: D o not add to previous draw Performed By: #### 3 1046, 20557, 25724, 37545 #### [facility] [address] [place] [id number], [facility] Nucleated RBC/100 WBC (Bld) [Ratio] 0 % Normal 0-0 [facility] Comment on above: Order Comment: No: D o not add to previous draw Performed By: #### 3 1046, 11364, 14245, 49474 #### [facility] [address] [place] [address], [facility] PLAT CNT 119 10*3/uL Low 150-400 [facility] Comment on above: Order Comment: No: D o not add to previous draw Performed By: #### 3 1046, 02445, 19357, 62562 #### [facility] [address] [place] [address], [facility] RBC (Bld) [#/Vol] 4.91 10*6/uL Normal 4.20-5.70 [facility] Comment on above: Order Comment: No: D o not add to previous draw Performed By: #### 3 1046, 17786, 47276, 91537 #### [facility] [address] WBC (Bld) [#/Vol] 8.36 10*3/uL Normal 4.00-10.60 [facility] Comment on above: Order Comment: No: D o not add to previous draw Performed By: #### 3 1046, 75941, 27731, 12828 #### [facility] [address] Cardiovascular Lab Reporton 06-02-2019 Cardiovascular Lab Report [facility] Patient Name: Serge Shine [facility] MR #: [id number] Physician: Willie Madrigal [facility] Service Date: 06/01/2019 Division of Birthdate: 1945 Cardiology Room #: 3CD [id number] Adult Cardiovascular Services [place] [address] Cardiovascular Laboratory Report INDICATION: The patient is [...] informed consent. He was brought to the analyst microbiology lab in a fasting state. The right neck area was prepped and draped in usual fashion. Using ultrasound guidance and micropuncture technique, 2 separate accesses were obtained in the right internal jugular vein and two 6-Guatemalan x 11 cm sheaths were placed. A 6-Guatemalan Cespedes catheter was used for right heart [...] Cid M.D. Date Trans: 06/02/2019 08:24 A/elías [id number] cc: Benedict Vallecillo M.D. [address] [facility] [address] [address] [facility] Cardiovascular Lab Report [facility] Patient Name: Harrison [facility] MR #: [id number] Physician: Willie Peñaloza M.D. Medicine Service Date: 06/01/2019 Division of Birthdate: 1945 Cardiology Room #: 3CD [id number] Adult Cardiovascular Services [place] [address] Cardiovascular Laboratory Report CLINICAL PRESENTATION: The patient [...] Garcia MD Date Trans: 06/02/2019 08:22 Trudi/elías [id number] cc: Benedict Vallecillo M.D. [address] [facility] [address] Normal [facility] FIBRINOGENon 06-02-2019 FIBRINOGEN 404 mg/dL Normal 150-425 [facility] Comment on above: Order Comment: No: D o not add to previous draw Performed By: #### 3 1046, 88278, 05149, 79025 #### [facility] [address] [place] [address], [facility] FIBRINOGEN 374 mg/dL Normal 150-425 [facility] Comment on above: Order Comment: No: D o not add to previous draw Performed By: #### 3 1046, 13173, 99343, 91985 #### [facility] [address] [place] [address], [facility] MAGNESIUM BLOODon 06-02-2019 Magnesium [Mass/Vol] 2.0 mg/dL Normal 1.9-2.7 [facility] Comment on above: Order Comment: No: D o not add to previous draw Performed By: #### 3 1046, 62933, 82830, 03303 #### [facility] [address] [place] [address], [place] PHOSPHORUS BLOODon 9 Phosphate [Mass/Vol] 3.3 mg/dL Normal 2.5-5.0 [facility] Comment on above: Order Comment: No: D o not add to previous draw Performed By: #### 3 1046, 02197, 39643, 31970 #### [facility] [address] [place] [address], [place] POC GLUCOSE LABon 06-02-2019 Glucose [Mass/Vol] 144 mg/dL High 70-100 [facility] Comment on above: Performed By: #### 3 1046, 06651, 08714, 90671 #### [facility] [address] [place] [address], [place] Glucose [Mass/Vol] 203 mg/dL High 70-100 [facility] Comment on above: Performed By: #### 3 1046, 64499, 62267, 16754 #### [facility] [address] [place] [address], [place] Glucose [Mass/Vol] 141 mg/dL High 70-100 [facility] Comment on above: Performed By: #### 3 1046, 65054, 11242, 39816 #### [facility] [address] [place] [address], [place] TROPONIN-Ion 06-02-2019 Troponin I.cardiac [Mass/Vol] 0.17 ng/mL Critically high 0.00-0.04 [facility] Comment on above: Order Comment: No: D o not add to previous draw Result Comment: M-[place] EVIOUS CRITICAL RESULT REFERENCE RANGES: 0.00 - 0.04 ng/ml NORMAL 0.05 - 0.50 ng/ml INDETERMINATE > 0.50 ng/ml CONSISTENT WITH AN M.I. Performed By: #### 3 1046, 15475, 32702, 63616 #### [facility] [address] [place] [address], [facility] UFH HEPARIN ASSAYon 06-02-20 19 UNFRACTIONATED HEPARIN 0.41 IU/mL Normal 0.30-0.70 [facility] Comment on above: Result Comment: Rosanne roxaban and Apixaban will interfere with the anti Xa assay used to monitor UFH and LMWH. Performed By: #### 3 1046, 46523, 23973, 21739 #### [facility] [address] [place] [address], [facility] UNFRACTIONATED HEPARIN >1.00 Critically high 0.30-0.70 [facility] Comment on above: Order Comment: This order is a replacement of the rejected order with accession [id number]. Result Comment: Corning roxaban and Apixaban will interfere with the anti Xa assay used to monitor UFH and LMWH. PATIENT ON HEPARING FROM WHEEL CLEANER, ELENITA VALENTE R.N. STATES NO WHERE TO DRAW THIS PATIENT EXCEPT ABOVE AN IV SITE, AFTER IV HAS BEEN TURNED OFF FOR ONE HALF HOUR. RESULTS MAY NOT BE ACCURATE UFH 1.15 Performed By: #### 3 1046, 60103, 20932, 63296 #### [facility] [address] [place] [address], [facility] UNFRACTIONATED HEPARIN 0.20 IU/mL Low 0.30-0.70 [facility] Comment on above: Result Comment: Corning roxaban and Apixaban will interfere with the anti Xa assay used to monitor UFH and LMWH. Performed By: #### 3 1046, 05688, 82851, 87381 #### [facility] [address] [place] [address], [facility] APTTon 06-01-2019 aPTT Coag (Bld) [Time] 60.4 s High 25.0-35.0 [facility] Comment on above: Order Comment: No: [...] THIS PURPOSE. Performed By: #### 3 1046, 13316, 20799, 16458 #### [facility] [address] [place] [address], [facility] BASIC METABOLIC PANELon 05-15 Calcium [Mass/Vol] 8.7 mg/dL Normal 8.6-10.3 [facility] Comment on above: Order Comment: No: D o not add to previous draw Performed By: #### 3 1046, 44166, 89949, 40282 #### [facility] [address] [place] [address], [facility] Chloride [Moles/Vol] 103 mmol/L Normal 98-107 [facility] Comment on above: Order Comment: No: D o not add to previous draw Performed By: #### 3 1046, 00051, 69242, 72666 #### [facility] [address] [place] [address], [place] CO2 [Moles/Vol] 26 mmol/L Normal 21-31 [facility] Comment on above: Order Comment: No: D o not add to previous draw Performed By: #### 3 1046, 56650, 88804, 43220 #### [facility] [address] [place] [address], [place] Creatinine [Mass/Vol] 1.19 mg/dL Normal 0.70-1.30 [facility] Comment on above: Order Comment: No: D o not add to previous draw Performed By: #### 3 1046, 90003, 98750, 91228 #### [facility] [address] [place] [address], [place] GFR/1.73 sq M predicted among blacks MDRD (S/P/Bld) [Vol rate/Area] mL/min/{1.73_m2} Normal >60 [facility] Comment on above: Order Comment: No: D o not add to previous draw Result Comment: Calc ulation may not be valid for patients over 70 years Performed By: #### 3 1046, 77065, 19300, 51603 #### [facility] [address] [place] [address], [facility] GFR/1.73 sq M predicted among non-blacks MDRD (S/P/Bld) [Vol rate/Area] 60 ml/min/1.73sq m Abnormal >60 [facility] Comment on above: Order Comment: No: D o not add to previous draw Result Comment: Calc ulation may not be valid for patients over 70 years Performed By: #### 3 1046, 38130, 71729, 35498 #### [facility] [address] [place] [address], [place] Glucose [Mass/Vol] 144 mg/dL High 70-100 [facility] Comment on above: Order Comment: No: D o not add to previous draw Performed By: #### 3 1046, 94875, 64494, 45109 #### [facility] [address] [place] [address], [place] Potassium [Moles/Vol] 4.6 mmol/L Normal 3.5-5.1 [facility] Comment on above: Order Comment: No: D o not add to previous draw Performed By: #### 3 1046, 26292, 25481, 30015 #### [facility] [address] [place] [address], [place] Sodium [Moles/Vol] 137 mmol/L Normal 136-145 [facility] Comment on above: Order Comment: No: D o not add to previous draw Performed By: #### 3 1046, 51525, 35248, 57662 #### [facility] [address] Urea nitrogen [Mass/Vol] 21 mg/dL Normal 7-25 [facility] Comment on above: Order Comment: No: D o not add to previous draw Performed By: #### 3 1046, 80651, 34333, 65434 #### [facility] [address] [place] [address], [facility] CBC COMPLETE BLOOD COUNTon - Erythrocyte distribution width (RBC) [Ratio] 14.3 % Normal 11.5-15.0 [facility] Comment on above: Order Comment: No: D o not add to previous draw Performed By: #### 3 1046, 73074, 97902, 78346 #### [facility] [address] Hematocrit (Bld) [Volume fraction] 48.1 % Normal 39.0-50.0 [facility] Comment on above: Order Comment: No: D o not add to previous draw Performed By: #### 3 1046, 31072, 01636, 81299 #### [facility] [address] [place] [address], [facility] Hemoglobin (Bld) [Mass/Vol] 15.1 g/dL Normal 13.0-17.0 [facility] Comment on above: Order Comment: No: D o not add to previous draw Performed By: #### 3 1046, 93894, 99494, 17862 #### [facility] [address] [place] [address], [facility] MCH (RBC) [Entitic mass] 28.9 pg Normal 27.0-33.0 [facility] Comment on above: Order Comment: No: D o not add to previous draw Performed By: #### 3 1046, 08751, 92212, 98400 #### [facility] [address] [place] [id number], [facility] MCHC (RBC) [Mass/Vol] 31.4 g/dL Low 32.0-35.0 [facility] Comment on above: Order Comment: No: D o not add to previous draw Performed By: #### 3 1046, 89742, 94247, 55381 #### [facility] [address] [place] [address], [facility] MCV (RBC) [Entitic vol] 92.1 fL Normal 82.0-98.0 [facility] Comment on above: Order Comment: No: D o not add to previous draw Performed By: #### 3 1046, 72109, 98947, 57369 #### [facility] [address] [place] [address], [facility] Nucleated RBC/100 WBC (Bld) [Ratio] 0 % Normal 0-0 [facility] Comment on above: Order Comment: No: D o not add to previous draw Performed By: #### 3 1046, 64401, 20714, 98650 #### [facility] [address] [place] [address], [place] PLAT CNT 137 10*3/uL Low 150-400 [facility] Comment on above: Order Comment: No: D o not add to previous draw Performed By: #### 3 1046, 05452, 53565, 02936 #### [facility] [address] [place] [address], [facility] RBC (Bld) [#/Vol] 5.22 10*6/uL Normal 4.20-5.70 [facility] Comment on above: Order Comment: No: D o not add to previous draw Performed By: #### 3 1046, 13510, 38538, 98689 #### [facility] [address] [place] [address], [place] WBC (Bld) [#/Vol] 10.11 10*3/uL Normal 4.00-10.60 [facility] Comment on above: Order Comment: No: D o not add to previous draw Performed By: #### 3 1046, 35408, 97137, 19345 #### [facility] [address] Erythrocyte distribution width (RBC) [Ratio] 14.4 % Normal 11.5-15.0 [facility] Comment on above: Order Comment: No: D o not add to previous draw Performed By: #### 3 1046, 38995, 27594, 47859 #### [facility] [address] [place] [id number], [facility] Hematocrit (Bld) [Volume fraction] 45.3 % Normal 39.0-50.0 [facility] Comment on above: Order Comment: No: D o not add to previous draw Performed By: #### 3 1046, 09633, 04824, 46550 #### [facility] [address] [place] [address], [facility] Hemoglobin (Bld) [Mass/Vol] 14.3 g/dL Normal 13.0-17.0 [facility] Comment on above: Order Comment: No: D o not add to previous draw Performed By: #### 3 1046, 36360, 51901, 58981 #### [facility] [address] [place] [address], [facility] IMM PLATELET FRAC 3.3 % Normal 0.8-6.3 [facility] Comment on above: Order Comment: No: D o not add to previous draw Performed By: #### 3 1046, 28324, 20529, 79909 #### [facility] [address] [place] [address], [facility] MCH (RBC) [Entitic mass] 29.1 pg Normal 27.0-33.0 [facility] Comment on above: Order Comment: No: D o not add to previous draw Performed By: #### 3 1046, 57573, 88285, 68228 #### [facility] [address] [place] [address], [facility] MCHC (RBC) [Mass/Vol] 31.6 g/dL Low 32.0-35.0 [facility] Comment on above: Order Comment: No: D o not add to previous draw Performed By: #### 3 1046, 92487, 53311, 17183 #### [facility] [address] [place] [address], [facility] MCV (RBC) [Entitic vol] 92.1 fL Normal 82.0-98.0 [facility] Comment on above: Order Comment: No: D o not add to previous draw Performed By: #### 3 1046, 06056, 89696, 65652 #### [facility] [address] [facility] [place] [address], [facility] Nucleated RBC/100 WBC (Bld) [Ratio] 0 % Normal 0-0 [facility] Comment on above: Order Comment: No: D o not add to previous draw Performed By: #### 3 1046, 79447, 46134, 40243 #### [facility] [address] [facility] [place] [address], [facility] PLAT CNT 137 10*3/uL Low 150-400 [facility] Comment on above: Order Comment: No: D o not add to previous draw Performed By: #### 3 1046, 69820, 08207, 97548 #### [facility] [address] [facility] [place] [address], [facility] RBC (Bld) [#/Vol] 4.92 10*6/uL Normal 4.20-5.70 [facility] Comment on above: Order Comment: No: D o not add to previous draw Performed By: #### 3 1046, 33153, 32573, 14013 #### [facility] [address] [facility] [place] [address], [facility] WBC (Bld) [#/Vol] 9.17 10*3/uL Normal 4.00-10.60 [facility] Comment on above: Order Comment: No: D o not add to previous draw Performed By: #### 3 1046, 40925, 73518, 85669 #### [facility] [address] [place] [address], [facility] Erythrocyte distribution width (RBC) [Ratio] 14.4 % Normal 11.5-15.0 [facility] Comment on above: Order Comment: No: D o not add to previous draw Performed By: #### 3 1046, 73138, 28916, 72904 #### [facility] [address] [place] [address], [place] Hematocrit (Bld) [Volume fraction] 46.9 % Normal 39.0-50.0 [facility] Comment on above: Order Comment: No: D o not add to previous draw Performed By: #### 3 1046, 29530, 67926, 69390 #### [facility] [address] [place] [address], [facility] Hemoglobin (Bld) [Mass/Vol] 14.6 g/dL Normal 13.0-17.0 [facility] Comment on above: Order Comment: No: D o not add to previous draw Performed By: #### 3 1046, 05478, 24319, 57888 #### [facility] [address] [place] [address], [place] MCH (RBC) [Entitic mass] 28.7 pg Normal 27.0-33.0 [facility] Comment on above: Order Comment: No: D o not add to previous draw Performed By: #### 3 1046, 08420, 74634, 37164 #### [facility] [address] [place] [address], [place] MCHC (RBC) [Mass/Vol] 31.1 g/dL Low 32.0-35.0 [facility] Comment on above: Order Comment: No: D o not add to previous draw Performed By: #### 3 1046, 25201, 10889, 42644 #### [facility] [address] [place] [address], [place] MCV (RBC) [Entitic vol] 92.3 fL Normal 82.0-98.0 [facility] Comment on above: Order Comment: No: D o not add to previous draw Performed By: #### 3 1046, 22179, 52159, 94506 #### [facility] [address] Nucleated RBC/100 WBC (Bld) [Ratio] 0 % Normal 0-0 [facility] Comment on above: Order Comment: No: D o not add to previous draw Performed By: #### 3 1046, 56526, 37282, 24366 #### [facility] [address] [facility] [place] [address], [facility] PLAT CNT 149 10*3/uL Low 150-400 [facility] Comment on above: Order Comment: No: D o not add to previous draw Performed By: #### 3 1046, 95321, 35361, 09195 #### [facility] [address] [facility] [place] [address], [facility] RBC (Bld) [#/Vol] 5.08 10*6/uL Normal 4.20-5.70 [facility] Comment on above: Order Comment: No: D o not add to previous draw Performed By: #### 3 1046, 17533, 12378, 92626 #### [facility] [address] [facility] [place] [address], [facility] WBC (Bld) [#/Vol] 8.84 10*3/uL Normal 4.00-10.60 [facility] Comment on above: Order Comment: No: D o not add to previous draw Performed By: #### 3 1046, 84173, 56261, 41663 #### [facility] [address] [facility] [place] [address], [facility] CEAon 06-01-2019 CEA 0.6 ng/mL Normal 0.0-3.0 [facility] Comment on above: Order Comment: No: D o not add to previous draw Performed By: #### 3 1046, 47907, 48669, 20563 #### [address] ABDOMEN AND PELVIS WO CON TRASTon 06-01-2019 CT ABDOMEN AND PELVIS WO CONTRAST [facility] Department of Radiology [address] [place] [id number] ======== Patient Name: SERGE SHINE : 1945 Sex: M Age: Race: White Pt. Location: [address] [place] [address] Patient Status: I Ordered Date: 06/01/2019 7:25:00 [...] severe atherosclerotic calcification infrarenally and into the [place] iliac arteries. There is a infrarenal abdominal [...] grafts and severe atherosclerotic calcification of the [place] iliac arteries. 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 Approved by:Gui Coello on 06/01/2019 9:32 PM EDT. I, Lyndsey Rojas, have reviewed the images and report and concur with these findings. Electronically signed by:Lyndsey Rojas. Transcribed by: [email or web address], User Resident: GUI COELLO Electronically Signed by: LYNDSEY ROJAS @ 06/02/2019 12:31 PM I personally read this/these film(s) with this resident Normal [facility] Comment on above: Order Comment: R/O R etroperitoneal Mass/Abscess, r/o retroperitoneal bleed s/p tPA CT CHEST WO CONTRASTon 06-01 CT CHEST WO CONTRAST [facility] Department of Radiology [address] [place] [id number] ======== Patient Name: SERGE SHINE : 1945 Sex: M Age: Race: White Pt. Location: [id number] Patient Status: I Ordered Date: 06/01/2019 7:10:00 [...] findings. Electronically signed by:Franklin Molina. Transcribed by: [email or web address], User Resident: GUI COELLO Electronically Signed by: FRANKLIN MOLINA @ 06/02/2019 11:44 AM I personally read this/these film(s) with this resident Normal [facility] Comment on above: Order Comment: Other , r/o bleed post TPA FIBRINOGENon 06-01-2019 FIBRINOGEN 386 mg/dL Normal 150-425 [facility] Comment on above: Order Comment: No: D o not add to previous draw Performed By: #### 3 1046, 07460, 90775, 08461 #### [facility] [address] [place] [address], [place] MAGNESIUM BLOODon 06-01-2019 Magnesium [Mass/Vol] 2.1 mg/dL Normal 1.9-2.7 [facility] Comment on above: Order Comment: No: D o not add to previous draw Performed By: #### 3 1046, 46871, 63446, 19774 #### [facility] [address] [place] [address], [place] PHOSPHORUS BLOODon 9 Phosphate [Mass/Vol] 3.3 mg/dL Normal 2.5-5.0 [facility] Comment on above: Order Comment: No: D o not add to previous draw Performed By: #### 3 1046, 73265, 18533, 56079 #### [facility] [address] [place] [address], [facility] POC GLUCOSE LABon 06-01-2019 Glucose [Mass/Vol] 207 mg/dL High 70-100 [facility] Comment on above: Performed By: #### 3 1046, 76415, 63757, 60012 #### [facility] [address] [place] [address], [place] Glucose [Mass/Vol] 207 mg/dL High 70-100 [facility] Comment on above: Performed By: #### 3 1046, 44748, 75640, 58030 #### [facility] [address] [place] [address], [place] Glucose [Mass/Vol] 171 mg/dL High 70-100 [facility] Comment on above: Performed By: #### 3 1046, 85967, 67650, 41167 #### [facility] [address] [place] [address], [place] PROTHROMBIN TIMEon 9 INR Coag (PPP) [Relative time] 1.20 {INR} High 0.91-1.16 [facility] Comment on above: Order Comment: [...] CHEST 1995;108:231S-246S. Performed By: #### 3 1046, 94490, 87289, 58445 #### [facility] [address] [place] [address], [facility] PT Coag (PPP) [Time] 15.3 s High 12.3-14.8 [facility] Comment on above: Order Comment: No: D o not add to previous draw Result Comment: ALL RESULTS MUST BE INTERPRETED WITH RESPECT TO BLOOD DRAWING ARTIFACT OR DILUTION ERROR OF ANTICOAGULANT AT THE TIME OF SAMPLING. Performed By: #### 3 1046, 19690, 68800, 96201 #### [facility] [address] [place] [address], [facility] TROPONIN-Ion 06-01-2019 Troponin I.cardiac [Mass/Vol] 0.22 ng/mL Critically high 0.00-0.04 [facility] Comment on above: Order Comment: No: D o not add to previous draw Result Comment: M-WV EVIOUS CRITICAL RESULT REFERENCE RANGES: 0.00 - 0.04 ng/ml NORMAL 0.05 - 0.50 ng/ml INDETERMINATE > 0.50 ng/ml CONSISTENT WITH AN M.I. Performed By: #### 3 1046, 72213, 25814, 68018 #### [facility] [address] [place] [address], [facility] TYPE AND SCREENon 06-01-2019 ABO INTERPRETATION O Normal [facility] Comment on above: Performed By: #### 3 1046, 18753, 44121, 51524 #### [facility] [address] [place] [address], [facility] RH INTERPRETATION Positive Normal [facility] Comment on above: Performed By: #### 3 1046, 32789, 19550, 72024 #### [facility] [address] [place] [address], [facility] UFH HEPARIN ASSAYon 06-01-20 19 UNFRACTIONATED HEPARIN <0.10 Critically low 0.30-0.70 [facility] Comment on above: Result Comment: Cor[place] roxaban and Apixaban will interfere with the anti Xa assay used to monitor UFH and LMWH. RESULTS CHECKED AND CALLED. ACCURATELY READ BACK BY TAYE MEYERS RN @ 5822 Performed By: #### 3 1046, 39899, 42236, 65495 #### [facility] [address] [place] [address], [facility] UNFRACTIONATED HEPARIN <0.10 Critically low 0.30-0.70 [facility] Comment on above: Order Comment: No: D o not add to previous draw Result Comment: Rosanne roxaban and Apixaban will interfere with the anti Xa assay used to monitor UFH and LMWH. RESULTS CHECKED AND CALLED. ACCURATELY READ BACK BY LISA VALENTE RN @ 9975 Performed By: #### 3 1046, 46733, 00545, 21171 #### [facility] [address] [place] [address], [facility] UNFRACTIONATED HEPARIN 0.20 IU/mL Low 0.30-0.70 [facility] Comment on above: Result Comment: Rosanne roxaban and Apixaban will interfere with the anti Xa assay used to monitor UFH and LMWH. Performed By: #### 3 1046, 71311, 78744, 20978 #### [facility] [address] [facility]. [address] APTTon 05-31-2019 aPTT Coag (Bld) [Time] 65.5 s High 25.0-35.0 [facility] Comment on above: Result Comment: ALL RESULTS [...] THIS PURPOSE. Performed By: #### 5 3629, 26538, 70057, 48840 #### [facility] [address] [facility]. [address] BASIC METABOLIC PANELon 05-15 Calcium [Mass/Vol] 9.3 mg/dL Normal 8.6-10.3 [facility] Comment on above: Order Comment: No: D o not add to previous draw Performed By: #### 3 1046, 15643, 93738, 04388 #### [facility] [address] [facility]. [address] Chloride [Moles/Vol] 104 mmol/L Normal 98-107 [facility] Comment on above: Order Comment: No: D o not add to previous draw Performed By: #### 3 1046, 23093, 87268, 75347 #### [facility] [address] [facility] [place] [address], [facility] CO2 [Moles/Vol] 21 mmol/L Normal 21-31 [facility] Comment on above: Order Comment: No: D o not add to previous draw Performed By: #### 3 1046, 27314, 24586, 68154 #### [facility] [address] [place] [address], [facility] Creatinine [Mass/Vol] 1.29 mg/dL Normal 0.70-1.30 [facility] Comment on above: Order Comment: No: D o not add to previous draw Performed By: #### 3 1046, 63324, 59336, 55825 #### [facility] [address] [place] [address], [facility] GFR/1.73 sq M predicted among blacks MDRD (S/P/Bld) [Vol rate/Area] mL/min/{1.73_m2} Normal >60 [facility] Comment on above: Order Comment: No: D o not add to previous draw Result Comment: Calc ulation may not be valid for patients over 70 years Performed By: #### 3 1046, 84283, 96868, 90741 #### [facility] [address] [place] [address], [facility] GFR/1.73 sq M predicted among non-blacks MDRD (S/P/Bld) [Vol rate/Area] 55 ml/min/1.73sq m Abnormal >60 [facility] Comment on above: Order Comment: No: D o not add to previous draw Result Comment: Calc ulation may not be valid for patients over 70 years Performed By: #### 3 1046, 07760, 99236, 57857 #### [facility] [address] [place] [address], [place] Glucose [Mass/Vol] 173 mg/dL High 70-100 [facility] Comment on above: Order Comment: No: D o not add to previous draw Performed By: #### 3 1046, 91776, 46454, 66668 #### [facility] [address] [place] [address], [facility] Potassium [Moles/Vol] 4.6 mmol/L Normal 3.5-5.1 [facility] Comment on above: Order Comment: No: D o not add to previous draw Performed By: #### 3 1046, 99650, 90416, 31946 #### [facility] [address] [place] [address], [facility] Sodium [Moles/Vol] 136 mmol/L Normal 136-145 [facility] Comment on above: Order Comment: No: D o not add to previous draw Performed By: #### 3 1046, 18973, 51617, 66473 #### [facility] [address] [place] [address], [facility] Urea nitrogen [Mass/Vol] 24 mg/dL Normal 7-25 [facility] Comment on above: Order Comment: No: D o not add to previous draw Performed By: #### 3 1046, 04335, 66376, 75909 #### [facility] [address] BNP (B-TYPE NATRIURETIC PEPT KAMRAN)on 05-31-2019 Natriuretic peptide B (Bld) [Mass/Vol] 430 pg/mL High 0-100 [facility] Comment on above: Order Comment: Yes: Add to Previous draw if able Result Comment: Give n the appropriate clinical setting a BNP result of >100 pg/mL indicates congestive heart failure. Performed By: #### 3 1046, 99976, 41447, 24298 #### [facility] [address] [place] [address], [facility] CARDIAC MAGNESIUM BLOODon Magnesium [Mass/Vol] 2.2 mg/dL Normal 1.9-2.7 [facility] Comment on above: Performed By: #### 3 1046, 86516, 58490, 73568 #### [facility] [address] [place] [address], [facility] CBC COMPLETE BLOOD COUNTon 0 05-31-2019 Erythrocyte distribution width (RBC) [Ratio] 14.3 % Normal 11.5-15.0 [facility] Comment on above: Order Comment: No: D o not add to previous draw Performed By: #### 5 0608 #### [facility] [address] [place] [address], [facility] Hematocrit (Bld) [Volume fraction] 47.4 % Normal 39.0-50.0 [facility] Comment on above: Order Comment: No: D o not add to previous draw Performed By: #### 5 0608 #### [facility] [address] [place] [address], [facility] Hemoglobin (Bld) [Mass/Vol] 15.3 g/dL Normal 13.0-17.0 [facility] Comment on above: Order Comment: No: D o not add to previous draw Performed By: #### 5 0608 #### [facility] [address] [place] [address], [facility] MCH (RBC) [Entitic mass] 29.0 pg Normal 27.0-33.0 [facility] Comment on above: Order Comment: No: D o not add to previous draw Performed By: #### 5 0608 #### [facility] [address] [place] [address], [facility] MCHC (RBC) [Mass/Vol] 32.3 g/dL Normal 32.0-35.0 [facility] Comment on above: Order Comment: No: D o not add to previous draw Performed By: #### 5 0608 #### [facility] [address] [place] [address], [facility] MCV (RBC) [Entitic vol] 89.8 fL Normal 82.0-98.0 [facility] Comment on above: Order Comment: No: D o not add to previous draw Performed By: #### 5 0608 #### [facility] [address] [place] [address], [facility] Nucleated RBC/100 WBC (Bld) [Ratio] 0 % Normal 0-0 [facility] Comment on above: Order Comment: No: D o not add to previous draw Performed By: #### 5 0608 #### [facility] [address] PLAT CNT 150 10*3/uL Normal 150-400 [facility] Comment on above: Order Comment: No: D o not add to previous draw Performed By: #### 5 0608 #### [facility] [address] RBC (Bld) [#/Vol] 5.28 10*6/uL Normal 4.20-5.70 [facility] Comment on above: Order Comment: No: D o not add to previous draw Performed By: #### 5 0608 #### [facility] [address] [place] [address], [facility] WBC (Bld) [#/Vol] 10.80 10*3/uL High 4.00-10.60 [facility] Comment on above: Order Comment: No: D o not add to previous draw Performed By: #### 5 0608 #### [facility] [address] D DIMER TESTon 05-31-2019 D-DIMER TEST 10.95 mcg/mL FEU High 0.01-0.49 [facility] Comment on above: Order Comment: No: [...] AND CONFIRMED Performed By: #### 5 3629, 84970, 84333, 75377 #### [facility] [address] LACTATE BLOODon 05-31-2019 Lactate [Moles/Vol] 1.6 mmol/L Normal 0.5-2.2 [facility] Comment on above: Order Comment: Yes: Add to Previous draw if able Performed By: #### 1 0054 #### [facility] [address] [facility] [place] [address], [facility] PHOSPHORUS BLOODon 9 Phosphate [Mass/Vol] 4.3 mg/dL Normal 2.5-5.0 [facility] Comment on above: Order Comment: No: D o not add to previous draw Performed By: #### 3 1046, 69060, 54822, 97932 #### [facility] [address] [facility] [place] [address], [facility] PROTHROMBIN TIMEon 9 INR Coag (PPP) [Relative time] 1.23 {INR} High 0.91-1.16 [facility] Comment on above: Order Comment: No: [...] RANGE. CHEST 1995;108:231S-246S. Performed By: #### 5 0099, 89362, 15139, 04411 #### [facility] [address] [facility] [place] [address], [facility] PT Coag (PPP) [Time] 15.6 s High 12.3-14.8 [facility] Comment on above: Order Comment: No: D o not add to previous draw Result Comment: ALL RESULTS MUST BE INTERPRETED WITH RESPECT TO BLOOD DRAWING ARTIFACT OR DILUTION ERROR OF ANTICOAGULANT AT THE TIME OF SAMPLING. Performed By: #### 5 3629, 52803, 55058, 24413 #### [facility] [address] TROPONIN-Ion 05-31-2019 Troponin I.cardiac [Mass/Vol] 0.14 ng/mL Critically high 0.00-0.04 [facility] Comment on above: Result Comment: M-CR ITICAL RESULT(S) REVIEWED, CALLED TO AND READ BACK BY TAYE MEYERS RN @0000 ON 06-01-19 M-TROPONIN INITIAL CRITICAL HIGH; RESPUN AND RETESTED REFERENCE RANGES: 0.00 - 0.04 ng/ml NORMAL 0.05 - 0.50 ng/ml INDETERMINATE > 0.50 ng/ml CONSISTENT WITH AN M.I. Performed By: #### 3 1046, 31117, 24258, 10517 #### [facility] [address] UFH HEPARIN ASSAYon 05-31-20 19 UNFRACTIONATED HEPARIN 0.28 IU/mL Low 0.30-0.70 [facility] Comment on above: Result Comment: Corning roxaban and Apixaban will interfere with the anti Xa assay used to monitor UFH and LMWH. Performed By: #### 5 3629, 06264, 38320, 43567 #### [facility] [address] Vital Signs Date Time Vital Sign Value Performing Clinician Facility 09-20-2024 08:43-0500 Body height 182.9 cm Kia Joshi DPM Work Phone: [facility] 09-20-2024 08:43-0500 Body mass index (BMI) [Ratio] 31.33 kg/m2 Kia Joshi DPM Work Phone: [facility] 09-20-2024 08:43-0500 Body weight 104.78 kg Kia Joshi DPM Work Phone: [facility] 07-18-2024 11:38-0500 Body height 182.9 cm Benedict Vallecillo MD Work Phone: [facility] 07-18-2024 11:38-0500 Body mass index (BMI) [Ratio] 30.92 kg/m2 Benedict Vallecillo MD Work Phone: [facility] 07-18-2024 11:38-0500 Body temperature 97.3 [degF] Benedict Vallecillo MD Work Phone: [facility] 07-18-2024 11:38-0500 Body weight 103.42 kg Benedict Vallecillo MD Work Phone: [facility] 07-18-2024 11:38-0500 Diastolic blood pressure 62 mm[Hg] Benedict Vallecillo MD Work Phone: [facility] 07-18-2024 11:38-0500 Heart rate 89 /min Benedict Vallecillo MD Work Phone: [facility] 07-18-2024 11:38-0500 Respiratory rate 20 /min Benedict Vallecillo MD Work Phone: [facility] 07-18-2024 11:38-0500 SaO2% (BldA) [Mass fraction] 96 % Benedict Vallecillo MD Work Phone: [facility] 07-18-2024 11:38-0500 Systolic blood pressure 126 mm[Hg] Benedict Vallecillo MD Work Phone: [facility] 12-03-2023 09:08-0400 Body height 182.9 cm Pmh 1 [facility] 12-03-2023 09:08-0400 Body mass index (BMI) [Ratio] 31.06 kg/m2 Pmh 1 [facility] 12-03-2023 09:08-0400 Body weight 103.87 kg Pmh 1 [facility] 10-21-2023 08:24-0500 Body height 182.9 cm Jr. Woods DO Work Phone: [facility] 10-21-2023 08:24-0500 Body mass index (BMI) [Ratio] 32.82 kg/m2 Jr. Stepanic DO Work Phone: [facility] 10-21-2023 08:24-0500 Body weight 109.77 kg Jr. Stepanic DO Work Phone: [facility] 10-16-2023 10:29-0500 Body height 182.9 cm Benedict Vallecillo MD Work Phone: [facility] 10-16-2023 10:29-0500 Body mass index (BMI) [Ratio] 33.36 kg/m2 Benedict Vallecillo MD Work Phone: [facility] 10-16-2023 10:29-0500 Body temperature 97.11 [degF] Benedict Vallecillo MD Work Phone: [facility] 10-16-2023 10:29-0500 Body weight 111.58 kg Benedict Vallecillo MD Work Phone: [facility] 10-16-2023 10:29-0500 Diastolic blood pressure 70 mm[Hg] Benedict Vallecillo MD Work Phone: [facility] 10-16-2023 10:29-0500 Heart rate 91 /min Benedict Vallecillo MD Work Phone: [facility] 10-16-2023 10:29-0500 SaO2% (BldA) [Mass fraction] 97 % Benedict Vallecillo MD Work Phone: [facility] 10-16-2023 10:29-0500 Systolic blood pressure 150 mm[Hg] Benedict Vallecillo MD Work Phone: [facility] Encounters Encounter Date Encounter Type Care Provider Facility Start: 12-30-2024 End: 12-30-2024 [facility] Start: 09-20-2024 End: 09-20-2024 [employer] Kia Joshi DPM Work Phone: [facility] Start: 09-20-2024 End: 09-20-2024 [employer] DPM Work Phone: [facility] Start: 09-20-2024 End: 09-20-2024 Office outpatient new 45 minutes Kia Joshi DPM Work Phone: [facility] Comment on above: 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, not stated as uncontrolled(250.60) ([facility]) (Primary Dx); Onychomycosis; Nail dystrophy; Venous insufficiency of both lower extremities; Pain in toes of both feet Start: 09-20-2024 End: 09-20-2024 ambulatory KIA JOSHI Not Available Start: 07-19-2024 End: 07-20-2024 Clinisync Result Encounter Benedict Vallecillo MD Work Phone: [facility] External Department Unsolicited Start: 07-19-2024 End: 07-20-2024 Clinisync Result Encounter Benedict Vallecillo MD Work Phone: [facility] External Department Unsolicited Start: 07-18-2024 End: 07-18-2024 Bamboo flowsheet Benedict Vallecillo MD Work Phone: [facility] Start: 07-18-2024 End: 07-18-2024 Bamboo flowsheet Benedict Vallecillo MD Work Phone: [facility] Start: 07-18-2024 End: 07-18-2024 Patient encounter procedure Benedict Vallecillo MD Work Phone: [facility] Healthcare Work Phone: Start: 07-18-2024 End: 07-18-2024 Postop follow up visit related to original px Benedict Vallecillo MD Work Phone: [facility] Comment on above: Medicare annual well ness visit, subsequent (Primary Dx); Type 2 diabetes mellitus with hyperglycemia, without long-term current use of insulin ([facility]) Start: 07-18-2024 End: 07-18-2024 ambulatory BENEDICT VALLECILLO Not Available Start: 03-15-2024 End: 03-15-2024 ambulatory BERNICE LUNA Not Available Start: 02-10-2024 End: 02-10-2024 ambulatory WILLIE [facility] Start: 02-09-2024 End: 02-09-2024 ambulatory BERNICE [...] Available Start: 01-18-2024 End: 01-18-2024 ambulatory VIJAY Johana WELCH Not Available Start: 01-11-2024 End: 01-11-2024 ambulatory BERNICE LUNA Not Available Start: 12-29-2023 End: 12-29-2023 ambulatory [facility] Start: 12-22-2023 End: 12-24-2023 ambulatory [facility] Start: 12-11-2023 End: 12-11-2023 ambulatory BEENDICT VALLECILLO Not Available Start: 12-09-2023 End: 12-09-2023 ambulatory GAL BAUTISTA Not Available Start: 12-03-2023 End: 12-04-2023 ambulatory WILLIE [facility] Start: 12-03-2023 Encounter for other preprocedural examination [facility] Start: 12-03-2023 End: 12-03-2023 Patient encounter procedure Pmh Pre-Admission Testing 1 [facility] - Pre Ad[facility] Comment on above: Preop examination (P rimary Dx); Hypertension, unspecified type; Atrial fibrillation, unspecified type ([facility]); Type 2 diabetes mellitus without complication, unspecified whether usp insulin use ([facility]); Former smoker; Osteoarthritis of left knee, unspecified osteoarthritis type; Urinary frequency Start: 12-03-2023 End: 12-03-2023 Preprocedural examination done Pmh 1 [facility] Start: 11-30-2023 End: 11-30-2023 ambulatory BERNICE LUNA Not Available Start: 10-21-2023 Chart abstracting Tim Willie Woods DO Work Phone: [facility] Start: 10-21-2023 End: 10-21-2023 Office outpatient visit 25 minutes Tim Woods DO Work Phone: [facility] Comment on above: Acute pain of left k nee Start: 10-21-2023 End: 10-21-2023 ambulatory Tim, WILLIE WOODS Not Available Start: 10-16-2023 Bamboo flowsheet Benedict Vallecillo MD Work Phone: [facility] Start: 10-16-2023 Bamboo flowsheet Benedict Vallecillo MD Work Phone: [facility] Start: 10-16-2023 Clinisync Result Encounter Benedict Vallecillo MD Work Phone: 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 Healthcare Work Phone: Start: 10-16-2023 End: 10-16-2023 ambulatory BENEDICT VALLECILLO Not Available Start: 10-07-2023 End: 10-07-2023 ambulatory ANH POPE Not Available Start: 11-13-2022 End: 11-14-[address] BENEDICT VALLECILLO Facility:[facility] Start: 05-15-2022 End: 05-16-[address] BENEDICT VALLECILLO Facility:[facility] Start: 05-31-2019 End: 06-06-2019 Evaluation and management of inpatient PROVIDER UNKNOWN Facility:[facility] Procedures Date Procedure Procedure Detail Performing Clinician Start: 07-19-2024 MLR HEMOGLOBIN A1C Benedict Vallecillo MD Work Phone: Start: 10-21-2023 Radiologic examinati on knee 1/2 views Jr. Willie Manzano Stepanic DO Work Phone: Start: 10-16-2023 MLR HEMOGLOBIN A1C Benedict Vallecillo MD Work Phone: Start: 11-13-[address] BENEDICT PEÑA Comment on above: Performed By: #### P [facility] #### [facility] [address] [place] [address] Dr. Demetris Allred Start: 06-02-2019 DILATION OF 1 COR AR T WITH DRUG-ELUT INTRA, PERC APPROACH WILLIE DEL CID Start: 06-02-2019 FLUOROSCOPY OF MULTI PLE CORONARY ARTERIES USING OTH CONTRAST WILLIE DEL CID Start: 06-01-2019 [object Object] PROVIDE R UNKNOWN Comment on above: Order Comment: No: D o not add to previous draw Performed By: #### 3 [id number] #### [facility] [address] [facility]. [address] Start: 06-01-2019 INTRODUCE OTH THROMB OLYTIC IN CENTRAL ART, PERC WILLIE V MOUKARBEL Start: 06-01-2019 MEASURE OF CARDIAC S AMPL \T\ PRESSURE, R HEART, PERC APPROACH WILLIE V NAYELIRBANDREW Start: 06-01-2019 Antibody screen PROVIDE R UNKNOWN Comment on above: Performed By: #### 3 [id number], [id number] #### [facility] [address] [place] [address], [facility] Start: 06-01-2019 REMOVAL OF INFUSION DEVICE FROM UPPER VEIN, UPSTREAM BIOMANUFACTURING TECHNICIAN APPROACH WILLIE DEL CID Plan of Treatment Date Care Activity Detail Author Start: 07-18-2025 Medicare Annual Wellness (AWV) Medicare Annual Wellness (AWV) [facility] Start: 03-14-2025 End: 03-14-2025 Patient encounter procedure 03/14/2025 8:00 AM EDT Office Visit [facility] [address] [place] [phone] Bernice Luna, PA [address] [address] [facility] Start: 02-02-2025 End: 02-02-2025 Patient encounter procedure 02/02/2025 8:45 AM EDT Office Visit [facility] [address] [place] [phone] Kia Joshi, DPM [address] [place], [place] [phone] [facility] Start: 01-16-2025 End: 01-16-2025 Patient encounter procedure 01/16/2025 8:00 AM EDT Office Visit [facility] [address] [place] [address] Benedict Vallecillo MD [address] [place] [address] [facility] Start: 12-10-2024 Urine screening for protein Diabetes: Urine Protein Screening [facility] Start: 12-02-2024 Adult BMI Screening Adult BMI Screening [facility] Start: 12-02-2024 Tobacco Screening Tobacco Screening [facility] Start: 09-20-2024 End: 09-20-2024 Patient encounter procedure 09/20/2024 9:00 AM EST Office Visit [facility] [address] [place] [phone] Kia Joshi, DPM [address] [place], [place] [phone] Arrived [facility] Comment on above: Arrived Start: 07-18-2024 End: 07-18-2025 Hemoglobin A1c/Hemoglobin.total in Blood Hemoglobin A1c Lab Routine Type 2 diabetes mellitus with hyperglycemia, without long-term current use of insulin ([facility]) Expected: 07/18/2024 (Approximate), Expires: 07/18/2025 [facility] Work Phone: Comment on above: Expected: 07/18/2024 (Approximate), Expi res: 07/18/2025 Start: 07-18-2024 End: 07-18-2024 Patient encounter procedure 07/18/2024 11:30 AM EST [facility] [address] [place] [phone] Benedict Vallecillo MD [address] [place] [address] Arrived [facility] Comment on above: Arrived Start: 07-14-2024 Medicare Annual Wellness (AWV) Medicare Annual Wellness (AWV) [facility] Start: 06-12-2024 Hemoglobin A1c measurement Diabetes: Hemoglobin A1C [facility] Start: 05-15-2024 Influenza vaccination Influenza Vaccine (#1) [facility] Start: 03-04-2024 Hemoglobin A1c measurement Diabetes: Hemoglobin A1C [facility] Start: 01-25-2024 Glaucoma screening Diabetes: Retinopathy Screening [facility] Start: 01-13-2024 End: 01-13-2024 Patient encounter procedure 01/13/2024 9:00 AM EDT Office Visit [facility] [address] [place] [address] Benedict Vallecillo MD [address] [place] [phone] [facility] Start: 12-29-2023 End: 12-29-2023 Admission to same day surgery center 12/29/2023 7:45 AM EDT - 12/29/2023 11:00 AM EDT Surgery [facility] Surgery [address] [place] [address] Willie Woods Jr., DO [address] [facility] [[email or web address] [address] [place] [address] REPLACEMENT TOTAL JOINT KNEE [70633 (CPT )] [facility] Comment on above: REPLACEMENT TOTAL JOINT KNEE [82630 (CPT )] Start: 12-29-2023 End: 12-29-2023 Arthrp kne condyle&platu medial&lat compartments REPLACEMENT TOTAL JOINT KNEE left knee degenerative joint disease 12/29/2023 7:45 AM EDT [facility] Start: 12-29-2023 Subsequent hospital visit by physician 12/29/2023 7:45 AM EDT Hospital Encounter [facility] Surgery [address] [place] [address] Willie Woods Jr., DO [address] [facility] [address] [place] [address] [facility] Start: 12-21-2023 End: 11-26-2024 Crossmatch RBC Crossmatch RBC Blood Bank Routine Preop examination Hypertension, unspecified type Atrial fibrillation, unspecified type ([facility]) Type 2 diabetes mellitus without complication, unspecified whether supervisor intermediates insulin use ([facility]) Former smoker Osteoarthritis of left knee, unspecified osteoarthritis type Urinary frequency Expected: 12/21/2023, Expires: 11/26/2024 [facility] Comment on above: Expected: 12/21/2023, Expires: Start: 12-21-2023 End: 11-26-2024 Type and screen(includes indirect olivia) Type and screen(includes indirect olivia) Blood Bank Routine Preop examination Hypertension, unspecified type Atrial fibrillation, unspecified type ([facility]) Type 2 diabetes mellitus without complication, unspecified whether supervisor intermediates insulin use ([facility]) Former smoker Osteoarthritis of left knee, unspecified osteoarthritis type Urinary frequency Expected: 12/21/2023, Expires: 11/26/2024 [facility] Comment on above: Expected: 12/21/2023, Expires: Start: 12-03-2023 End: 11-26-2024 ECG 12 lead ECG 12 lead ECG Routine Preop examination Hypertension, unspecified type Atrial fibrillation, unspecified type ([facility]) Type 2 diabetes mellitus without complication, unspecified whether supervisor intermediates insulin use ([facility]) Former smoker Osteoarthritis of left knee, unspecified osteoarthritis type Urinary frequency Expected: 12/03/2023, Expires: 11/26/2024 [facility] [employer] [facility] Comment on above: Expected: 12/03/2023, Expires: Start: 12-03-2023 End: 11-26-2024 XR Femur and Tibia Views for leg length [facility] Work Phone: Comment on above: Expected: 12/03/2023, Expires: Start: 11-14-2023 Urine screening for protein Diabetes: Urine Protein Screening [facility] Start: 10-21-2023 End: 10-21-2023 Patient encounter procedure 10/21/2023 8:30 AM EST Office Visit [facility] [address] [place] [address] Jr. Willie Woods, DO [address] [facility] [[email or web address]] [address] [place] [address] [facility] Start: 10-16-2023 End: 10-16-2024 Hemoglobin A1c measurement Hemoglobin A1c Lab Routine Type 2 diabetes mellitus with hyperglycemia, without long-term current use of insulin ([facility]) Expected: 10/16/2023 (Approximate), Expires: 10/16/2024 [facility] Work Phone: Comment on above: Expected: 10/16/2023 (Approximate), Expi res: 10/16/2024 Start: 10-16-2023 End: 10-16-2023 Patient encounter procedure 10/16/2023 10:30 AM EST Consult [facility] [address] [place] [phone] Benedict Vallecillo MD [address] [place] [address] Arrived [facility] Comment on above: Arrived Start: 02-03-2020 Pneumococcal Vaccine: 65+ Years (2 - PCV) Pneumococcal Vaccine: 65+ Years (2 - PCV) [facility] Start: 02-03-2020 Pneumococcal Vaccine: 65+ Years (2 of 2 - PCV) Pneumococcal Vaccine: 65+ Years (2 of 2 - PCV) [facility] Start: 2011 Fall Risk Screening Fall Risk Screening [facility] Start: 1996 Administration of varicella zoster vaccine Zoster (Shingles) Vaccine (1 of 2) [facility] Start: 1965 DTaP,Tdap and Td Vaccines (1 - Tdap) DTaP,Tdap and Td Vaccines (1 - Tdap) [facility] Start: 1965 Urine screening for protein Diabetes: Urine Protein Screening [facility] Start: 1964 Adult BMI Follow Up Plan Adult BMI Follow Up Plan [facility] Start: 1958 Depression Screening Depression Screening [facility] Start: 1956 Glaucoma screening Diabetes: Retinopathy Screening [facility] Start: 1946 Hemoglobin A1c measurement Diabetes: Hemoglobin A1C [facility] Start: 1946 Medicare Annual Wellness (AWV) Medicare Annual Wellness (AWV) [facility] Start: 1946 Medicare Annual Wellness Visit Medicare Annual Wellness Visit [facility] Alanine aminotransfe rase [Enzymatic activity/volume] in Serum or Plasma ALT Lab Routine Onychomycosis Ordered: 09/20/2024 [facility] Comment on above: Ordered: 09/20/2024 Alkaline phosphatase [Enzymatic activity/volume] in Serum or Plasma Alkaline phosphatase Lab Routine Onychomycosis Ordered: 09/20/2024 [facility] Work Phone: Comment on above: Ordered: 09/20/2024 Aspartate aminotransferase [Enzymatic activity/volume] in Serum or Plasma AST Lab Routine Onychomycosis Ordered: 09/20/2024 [facility] Comment on above: Ordered: 09/20/2024 Immunizations Immunization Date Immunization Notes Care Provider Fa [facility] 07-17-2023 influenza virus vacc ine, unspecified formulation Benedict Vallecillo MD Work Phone: [facility] 07-22-2022 Influenza, High-dose Seasonal, Quadrivalent, Preservative Free Benedict Vallecillo MD Work Phone: [facility] 07-22-2022 Moderna Bivalent [place] Vaccination Benedict Vallecillo MD Work Phone: [facility] 11-24-2020 COVID-19, mRNA, LNP- S, PF, 30mcg/0.3mL Dose Pmh 1 [facility] 11-03-2020 COVID-19, mRNA, LNP- S, PF, 30mcg/0.3mL Dose Pmh 1 [facility] 02-02-2019 pneumococcal polysaccharide vaccine, 23 valent Benedict Vallecillo MD Work Phone: [facility] Payers Date Payer Category Payer Unknown [id number] 2018 Private Health Insurance [id number] 2013 [place] Blue Shield 1.2.8 [id number] 2013 Unknown [id number] 2011 Medicare [id number] 1959 Medicare [id number] 1959 Unknown [id number] 1959 Unknown [id number] 1946 Unknown [id number] 2.16.8 40.1.171833.3.579.2.647 1946 Unknown [id number] 2.16.84 0.1.075442.3.579.2.593 1946 Unknown [id number] 2.16.84 0.1.892254.3.579.2.593 1946 Unknown [id number] 2.16.8 40.1.781058.3.579.2.1286 1946 Unknown [id number] 2.16.8 40.1.354172.3.579.2.1286 1946 Unknown [id number] 2.16.8 40.1.264168.3.579.2.128 1946 Unknown [id number] 2.16.8 40.1.182865.3.579.2.128 1946 Unknown [id number] 2.16.8 40.1.593559.3.579.2.1286 1946 Unknown [id number] 2.16.8 40.1.814092.3.579.2.128 1946 Unknown [id number] 2.16.8 40.1.051010.3.579.2.1286 1946 Unknown [id number] 2.16.8 40.1.953738.3.579.2.128 1946 Unknown [id number] 2.16.84 0.1.275027.3.579.2.1259 1946 Unknown [id number] 2.16.84 0.1.656217.3.579.2.1259 1946 Unknown [id number] 2.16.84 0.1.937544.3.579.2.1259 1946 Unknown [id number] 2.16.84 0.1.282672.3.579.2.125 1946 Unknown [id number] 2.16.84 0.1.393305.3.579.2.125 1946 Unknown [id number] 2.16.84 0.1.192968.3.579.2.1259 1946 Unknown [id number] 2.16.84 0.1.446933.3.579.2.1259 1946 Unknown [id number] 2.16.84 0.1.462530.3.579.2.1258 1946 Unknown [id number] 2.16.84 0.1.089010.3.579.2.125 1946 Unknown [id number] 2.16.84 0.1.173866.3.579.2.1258 1946 Unknown [id number] 2.16.84 0.1.512618.3.579.2.125 1946 Unknown [id number] 2.16.84 0.1.844438.3.579.2.1258 1946 Unknown [id number] 2.16.84 0.1.913466.3.579.2.1258 1946 Unknown [id number] 2.16.84 0.1.533981.3.579.2.1258 1946 Unknown [id number] 2.16.84 0.1.583274.3.579.2.1258 1946 Unknown [id number] 2.16.84 0.1.597041.3.579.2.125 1946 Unknown [id number] 2.16.84 0.1.377198.3.579.2.125 1946 Unknown [id number] 2.16.84 0.1.671527.3.579.2.125 1946 Unknown [id number] 2.16.84 0.1.489288.3.579.2.1258 1946 Unknown [id number] 2.16.84 0.1.079810.3.579.2.1259 Social History Date Type Detail Facility Start: 04-22-2023 End: 12-03-2023 Tobacco smoking status SCIS Ex-smoker [facility] End: 08-07-1995 History of tobacco use Current smoker [facility] End: 08-07-1995 History of tobacco use Cigarette Smoker [facility] Start: 10-10-2023 End: 12-03-2023 Alcohol intake [...] or organizations such as catholic groups, unions, fraCommand Information or athletic groups, or school groups? Yes [...] non-user [facility] Clinical Notes 11-06-2020 to 12-30-2024 Kia Joshi DPM - 09/20/2024 9:00 AM Queenie Vallecillo MD - 07/18/2024 12:04 PM Queenie Vallecillo MD - 07/18/2024 11:30 AM ESTPatient InstructionsJr. Willie Woods, DO - 10/21/2023 8:30 AM EST Note Date & Type Note Facility 12-30-2024 Note [place] [facility] - [facility] Subjective Serge Shine is a 79 y.o. year old male patient being seen for 1 year follow up. Patient states he is feeling really good. No cardiac complaints at this time. C/o of some occasional leg swelling. Family History Problem Relation Name Age of Onset No Known Problems Mother Cancer Father Cancer Brother Social History Tobacco Use Smoking status: Former Current packs/day: 0.00 Types: Cigarettes Quit date: 08/1995 Years since quittin.4 Smokeless tobacco: Never Substance Use Topics Drug use: Yes Types: Marijuana HPI Serge is seen in follow-up. He is a 79-year-old man, who was admitted in 2019 to [facility] after an episode of cardiopulmonary [...] was evaluated in the emergency room at [facility] because of vertigo. CT scan did not [...] Review of Systems Cardiovascular: Positive for leg swelling (occasional). Skin: Positive for color change. Musculoskeletal: Positive for arthritis and joint pain. All other systems reviewed and are negative. Objective Visit Vitals BP 127/76 (BP Location: Right arm, Patient Position: Sitting) Pulse 91 Ht 1.829 m (6') Wt 102 kg (224 lb) SpO2 99% BMI 30.38 kg/m??? Smoking Status Former BSA 2.28 m??? Physical Exam Constitutional: Appearance: He is [...] murmur heard. No friction rub. No gallop. Comments: Varicose veins noted in the lower extremities Pulmonary: Effort: Pulmonary effort is normal. No respiratory distress. Breath sounds: Normal breath sounds. No wheezing or rales. Chest: Chest wall: No tenderness. Abdominal: General: Bowel sounds are normal. There is no distension. Palpations: Abdomen is soft. Tenderness: There is no abdominal tenderness. Musculoskeletal: General: No swelling. Cervical back: Neck supple. Right lower le+ Edema present. Left lower le+ Edema present. Skin: General: [...] Disp: , Rfl: lisinopril 20 mg tablet, lisinopril 20 mg tablet, Disp: , Rfl: terbinafine (LamISIL) 250 mg tablet, Take 250 mg by mouth in the morning., Disp: , Rfl: aspirin 81 mg EC tablet, Take 1 tablet by mouth in the morning., Disp: , Rfl: oxyCODONE-acetaminophen (Percocet) 5-325 mg tablet, Take 1 tablet by mouth every 6 (six) hours if needed for moderate pain (4-7 pain score)., Disp: , Rfl: Recent Labs No visits with results within 6 Month(s) from this visit. Latest known visit with results is: [facility] Encounter on 06/06/2019 Component Date Value Glucose POC 06/06/2019 174 (H) Blood testing 12/31/2020: Hemoglobin 15.1, platelets 152, Potassium 4.1, high-sensitivity troponin negative. BUN 17, creatinine 1.13, LFTs normal (more content not included)... [facility] 09-20-2024 History of Present illness Narrative Images from the original note were not included. Subjective Patient ID: Serge Shine is a 79 y.o. male who presents for Ingrown Toenail (Serge Shine 79yo New patient presents with BL great toe pain. Patient relates he has trouble reaching his toes to trim them. [id number] Vallecillo 07/18/2024 SS 12). HPI Patient presents complaining of bilateral great toenails that are thick, fungal, loose. He states the medial border the left hallux is the most bothersome. He has damaged and lost both nails previously. He has a difficult time trimming his own nails. He is diabetic x5 years. He would like to discuss treatment options Review of Systems Medications Current Outpatient Medications: apixaban (Eliquis) 5 MG tablet, TAKE 1 TABLET BY MOUTH TWICE DAILY, Disp: 180 tablet, Rfl: 3 atorvastatin (Lipitor) 40 MG tablet, TAKE 1 TABLET BY MOUTH AT BEDTIME, Disp: 90 tablet, Rfl: 3 glipiZIDE (Glucotrol) 10 MG tablet, TAKE 1 TABLET BY MOUTH DAILY, Disp: 90 tablet, Rfl: 3 Jardiance 25 MG, TAKE 1 TABLET BY MOUTH DAILY, Disp: 90 tablet, Rfl: 3 lisinopril 20 MG tablet, TAKE 1 TABLET BY MOUTH DAILY, Disp: 90 tablet, Rfl: 3 Multiple Vitamins-Minerals (Centrum Silver 50+Men) tablet, as directed Orally, Disp: , Rfl: Multiple Vitamins-Minerals (PreserVision AREDS 2) capsule, 1 tablet Orally two times daily, Disp: , Rfl: Allergies Patient has no known allergies. Past Surgical History Past Surgical History: Procedure Laterality Date APPENDECTOMY 1950 A CHILD CARDIAC SURGERY 08/1995 Double bypass CARDIAC SURGERY 05/31/2019 Blood clots - lungs and stent at [place] [facility]ERY 08/2023 tooth pulled TONSILLECTOMY 1950 A CHILD TOTAL KNEE ARTHROPLASTY Right 12/29/2023 RT TKA- DR WOODS TOTAL KNEE ARTHROPLASTY Left Family History Family History Problem Relation Name Age of Onset Coronary artery disease Mother Prostate cancer Father Brice Shine Cancer Father Brice Shine Objective Physical Exam Cardiovascular: Comments: Pedal pulses: DP 0/4 bilateral, PT 0/4 bilateral. Skin temp is warm to warm. Varicosities: present Hair growth: absent History of lower aorta bypass and bilateral PE Pulmonary: Effort: Pulmonary effort is normal. Musculoskeletal: General: No tenderness. Right lower leg: No edema. Left lower leg: No edema. Comments: ROM: AJ and STJ ROM are normal and pain free. MUSCLE STRENGTH: 5/5 for dorsiflexion, plantarflexion, inversion, eversion. PAIN: nails, most severe at distal medial L hallux nail Skin: General: Skin is warm. Capillary Refill: Capillary refill takes 2 to 3 seconds. Findings: No bruising or erythema. Comments: SKIN FINDINGS: Webspaces are clean and dry. Skin is thick, dry, brawny. Turgor poor. HYPERKERATOSIS: none NAIL PATHOLOGY: Nail 1 b/l are 5mm thick, yellow, white, fungal, crumbly, elongated, raised. The the left medial hallux nail at the distal corner has significant buildup at the nail folds of nail debris and callus tissue. After debridement of this patient expresses relief of symptoms. Nails 2, 3, 4, 5 right foot are also infected with superficial white fungus. CLINICAL PICTURE TAKEN 09/20/2024 Neurological: Mental Status: He is alert and oriented to person, place, and time. Comments: Light touch sensation intact Vibratory sensation: diminished at IPJ, MPJ, medial malleolus, patella bilaterally [place] Justin monofilament: intact at 10/10 sites Psychiatric: Mood and Affect: Mood normal. Behavior: Behavior normal. Assessment/Plan ICD-10-CM 1. Onychomycosis B35.1 Alkaline phosphatase ALT AST 2. Nail dystrophy L60.3 3. Type II or unspecified type diabetes mellitus with neurological manifestations, not stated as uncontrolled(250.60) ([facility]/HCC) E11.49 4. Venous insufficiency of both lower extremities I87.2 5. Pain in toes of both feet M79.674 M79.675 Reviewed findings of diabetic foot exam with the pt along with diagnosis of peripheral neuropathy and importance of maintaining good control of blood sugars. They are to get into a habit of looking at their feet or have someone look at them. They are to look for any signs of redness, blistering, cracking, swelling, drainage, open lesions etc. They are to refrain from going barefoot. Wear shoes at all times to help protect feet. Shoe gear should be inspected for any foreign objects. Shoes should have a deep wide toe box. With any type of shoe, the feet should be inspected for any signs of pressure, i.e., redness, blistering, or open sores. Discussed treatment options of nail fungus: doing nothing vs topical anti fungal vs oral antifungal vs removal of entire nail or partial nail avulsion. Review that his poor vascular status would pose a risk for nail procedures. I recommended we started with conservative care. Today I debrided the nails 1 through 10 in length and thickness with small nail Nipper and electronic bur. We reviewed medication options to treat the fungus and I removed the offending distal medial portion of debris from the left hallux nail. Patient felt symptomatic relief. To treat the fungus patient would like to try oral Lamisil. He states he would recent lab work done in [place] in July but is unsure if LFTs were checked. I explained 90 days of treatment and the need for LFT before filling the Rx. Order for LFT given to pt. Wait to hear about results before filling Rx. Potential side effects also discussed in detail. Explained liver metabolism. Pt understands fungus can recur. Medication may not work. All questions answered to their satisfaction. ERx Lamisil 250 mg #90 take one tab daily for 90 days. Pt will return in 4-5 months for follow up This note was created with the assistance of a speech recognition program. While intending to generate a timely document that accurately reflects the content of the visit, no guarantee can be provided that every grammatical or spelling mistake has been or will be identified or corrected. Thank you for your understanding. Kia Joshi DPM documented in this encounter [facility] 07-18-2024 History of Present illness Narrative Associated [...] without long-term current use of insulin (CMS/HCC) Relevant Orders Hemoglobin A1c Medicare annual wellness visit, subsequent - Primary Due for labs. Discussed proper diet and regular aerobic exercise. Need aerobic exercise 5-6 days a week for 30 minutes at a time. Smaller portions and limit total calories. Tetanus every 10 years. Advised not to smoke. documented in this encounter [facility] 02-10-2024 Note [place] [facility] Subjective Serge Shine is a 78 [...] Problem List Diagnosis Coronary artery disease involving hopland coronary artery of hopland heart without angina pectoris Presence of drug [...] man, who was admitted in 2019 to [facility] after an episode of cardiopulmonary [...] was evaluated in the emergency room at [facility] because of vertigo. CT scan did not [...] mg tablet, lisinop (more content not included)... [facility] 12-07-2023 Note XR BONE LENGTH STUDY [...] Bud Alvarez MD on 12/07/2023 8:33 AM [facility] 12-03-2023 Instructions Monae Cartwright RN - [...] in at the main lobby of the [facility]- registration desk is straight ahead as soon as you walk in. Tell them you are here for surgery. 2. If you have a Living Will/Durable Power of Acting Instructor for Health Care that is not on [...] after you have bathed. 5. NO nail ivorian/acrylic on at least one finger. If you are having a hand, wrist or foot surgery then all nail ivorian and artificial/acrylic nails must be removed from [...] please call the Pread[facility] office at [phone], Mon.-Fri. 7 a.m.-3 p.m. Leave a voicemail [...] Stop taking 0 days prior to procedure wyaljhrb-nseh-QE-calcium &mins (THERAGRAN-M) 9 mg iron-400 mcg tablet [...] with your doctor. documented in this encounter [facility] 10-21-2023 History of Present illness Narrative Images from the original note were not included. HISTORY OF PRESENT ILLNESS: EST PT Serge Shine is an 78 y.o. @ male. (EST PT; MOST RECENT VISIT WITH ANH) RECHECK LT KNEE PAIN-HERE TO DISCUSS POSSIBLE SURGERY- REPEAT XRAY TODAY LAST TX BY DR WOODS 07/22/23, LT TKA WAS DISCUSSED PT WAS CLEARED BY KVNG JOHNSON NP (COMMISSARY HELPER) 07/2023 PER PT CLEARED BY [facility]ISE DENTIST [...] pending cardiac clearance and dental clearance from [facility]. Patient requests outpatient surgery at [facility] Questions answered in laymen terms at the bedside. The diagnosis, home exercise plan and any ongoing restrictions/ recommendations reviewed. If unable to be reached in office, I recommend evaluation at nearest Emergency Room if any symptoms worsened or new symptoms develop for requiring urgent evaluation. BIJU Pugh documented in this encounter [facility] 10-16-2023 History of Present illness Narrative Associated Problem(s): Benign essential hypertension (CMS/HCC) BP typically controlled and monitor PRN. Associated Problem(s): Coronary artery disease involving hopland coronary artery of hopland heart without angina pectoris (CMS/HCC) No pain [...] Addressed This Visit Coronary artery disease involving hopland coronary artery of hopland heart without angina pectoris (CMS/HCC) No pain [...] routine PAT. documented in this encounter [facility] 11-06-2020 Note Patient Outreach ([place] [facility]) SERGE SHINE ([id number]) 1945 M Date Time Provider Department 11/06/20 GE GARCIA During your visit today, we recorded the following information about you: Allergies As of Date: 11/06/2020 (No Known Allergies) Date Reviewed: 06/16/2019 Reviewed by: Sudha Cartagena - Fully Assessed Order(s):SARS-COVID VACCINE 1ST DOSE APPT [[id number]] Order #: [id number] FUTURE Prescriptions as of 11/06/2020 Sig: ASPIRIN [...] 11/06/2020 (None) Letter Text Encounter Status:Closed by [employer], PRODUSER on 11/09/20 [facility] Evaluation note Diagnosis Preop examination- Primary Unspecified pre-operative examination Primary osteoarthritis of left knee Type 2 diabetes mellitus with hyperglycemia, without long-term current use of insulin (CMS/HCC) Benign essential hypertension (CMS/HCC) Essential hypertension, benign Coronary artery disease involving hopland coronary artery of hopland heart without angina pectoris (CMS/HCC) documented in this encounter [facility]* Diagnosis Acute pain of left knee documented in this encounter [facility]* Diagnosis Preop examination- Primary Unspecified pre-operative examination Primary osteoarthritis of left knee Type 2 diabetes mellitus with hyperglycemia, without long-term current use of insulin (CMS/HCC) Benign essential hypertension (CMS/HCC) Essential hypertension, benign Coronary artery disease involving hopland coronary artery of hopland heart without angina pectoris (CMS/HCC) Primary osteoarthritis of left knee- Primary Preop examination Unspecified pre-operative examination Type 2 diabetes mellitus with hyperglycemia, without long-term current use of insulin (CMS/HCC) Benign essential hypertension (CMS/HCC) Essential hypertension, benign Gouty arthritis Gouty arthropathy, unspecified PVD (peripheral vascular disease) (CMS/HCC) Unspecified peripheral vascular disease Mixed hyperlipidemia (CMS/HCC) Mixed hyperlipidemia Encounter for long-term (current) use of medications Encounter for long-term (current) use of other medications Obesity (BMI 30-39.9) Screening PSA (prostate specific antigen) Special screening for malignant neoplasm of prostate Coronary artery disease involving hopland coronary artery of hopland heart without angina pectoris (CMS/HCC) Type 2 diabetes mellitus with diabetic peripheral angiopathy without gangrene, without long-term current use of insulin (CMS/HCC) Type 2 diabetes mellitus with other specified complication, without long-term current use of insulin (CMS/HCC) Medicare annual wellness visit, subsequent- Primary Type 2 diabetes mellitus with hyperglycemia, without long-term current use of insulin (CMS/HCC) documented in this encounter [facility] note* Diagnosis Preop examination- Primary Unspecified pre-operative examination Primary osteoarthritis of left knee Type 2 diabetes mellitus with hyperglycemia, without long-term current use of insulin (CMS/HCC) Benign essential hypertension (CMS/HCC) Essential hypertension, benign Coronary artery disease involving hopland coronary artery of hopland heart without angina pectoris (CMS/HCC) Primary osteoarthritis of left knee- Primary Preop examination Unspecified pre-operative examination Type 2 diabetes mellitus with hyperglycemia, without long-term current use of insulin (CMS/HCC) Benign essential hypertension (CMS/HCC) Essential hypertension, benign Gouty arthritis Gouty arthropathy, unspecified PVD (peripheral vascular disease) (CMS/HCC) Unspecified peripheral vascular disease Mixed hyperlipidemia (CMS/HCC) Mixed hyperlipidemia Encounter for long-term (current) use of medications Encounter for long-term (current) use of other medications Obesity (BMI 30-39.9) Screening PSA (prostate specific antigen) Special screening for malignant neoplasm of prostate Coronary artery disease involving hopland coronary artery of hopland heart without angina pectoris ([facility]) Type 2 diabetes mellitus with diabetic peripheral angiopathy without gangrene, without long-term current use of insulin ([facility]) Type 2 diabetes mellitus with other specified complication, without long-term current use of insulin ([facility]) Medicare annual wellness visit, subsequent- Primary Type 2 diabetes mellitus with hyperglycemia, without long-term current use of insulin ([facility]) Type II or unspecified type diabetes mellitus with neurological manifestations, not stated as uncontrolled(250.60) ([facility])- Primary Type II or unspecified type diabetes mellitus with neurological manifestations, not stated as uncontrolled Onychomycosis Dermatophytosis of nail Nail dystrophy Other specified disease of nail Venous insufficiency of both lower extremities Pain in toes of both feet documented in this encounter [facility]* Diagnosis Preop examination- Primary Unspecified pre-operative examination Hypertension, unspecified type Atrial fibrillation, unspecified type [place] Type 2 diabetes mellitus without complication, unspecified whether usp insulin use ([facility] Former smoker Personal history of tobacco use, presenting hazards to health Osteoarthritis of left knee, unspecified osteoarthritis type Urinary frequency Preop examination Unspecified pre-operative examination Hypertension, unspecified type Atrial fibrillation, unspecified type ([facility]) Type 2 diabetes mellitus without complication, unspecified whether usp insulin use ([facility]) Former smoker Personal history of tobacco use, presenting hazards to health Osteoarthritis of left knee, unspecified osteoarthritis type Urinary frequency documented in this encounter [facility] Summary Purpose Family History No Family History Records FoundNo Family History Records FoundNo Family History Records FoundNo Family History Records FoundNo Family History Records FoundNo Family History Records Found Advance Directives No Advanced Directives Records FoundNo Advanced Directives Records FoundNo Advanced Directives Records FoundNo Advanced Directives Records FoundNo Advanced Directives Records FoundNo Advanced Directives Records Found Hospital Course Note MR#: [id number] [facility] Pt. Name: Serge Shine Admitted: [...] a 74-year-old male, who was transferred from [facility] on May 31, 2019 for pulmonary embolism. [...] Hypertension, unspecified type Atrial fibrillation, unspecified type ([facility]) Type 2 diabetes mellitus without complication, unspecified whether supervisor intermediates insulin use ([facility] Former smoker Osteoarthritis of left knee, unspecified osteoarthritis type Urinary frequency Procedures ECG 12 lead Willie Woods Jr., DO [address] [facility] [address] [place] [address] Referral ID Status Reason Start Date Expiration Date V isits Requested Visits Authorized [id number] Pending Review 11/27/2023 11/26/2024 1 1 Additional Source Comments (unrecognized sect ion and content) No Status Records FoundNo Status Records FoundNo Status Records FoundNo Status Records FoundNo Status Records FoundNo Status Records Found INFORMATION SOURCE (unrecogn ized section and content) DATE CREATED AUTHOR 07/14/2019 [facility] DATE CREATED AUTHOR AUTHOR'S ORGANIZ ATION 10/24/2021 [facility] DATE CREATED AUTHOR AUTHOR'S ORGANIZ ATION 11/19/2022 [facility] DATE CREATED AUTHOR AUTHOR'S ORGANIZ ATION 01/06/2024 [facility] DATE CREATED AUTHOR AUTHOR'S ORGANIZ ATION 09/26/2024 [facility] EPIC DATE CREATED AUTHOR AUTHOR'S ORGANIZ ATION 01/01/2025 [facility] Care Teams (unrecognized sec tion and content) Grades 7 8 Tutor Relationship Specialty Start Date End Date Benedict Vallecillo MD [address] [place] [phone] PCP - General Family Medicine 10/05/23 Grades 7 8 Tutor Relationship Specialty Start Date End Date Benedict Vallecillo MD [address] [place] [place] [phone] PCP - General Family Medicine 10/05/23 Grades 7 8 Tutor Relationship Specialty Start Date End Date Benedict Vallecillo MD [address] [place] [phone] PCP - General Family Medicine 10/05/23 Grades 7 8 Tutor Relationship Specialty Start Date End Date Benedict Vallecillo MD [address] [place] [phone] PCP - General Family Medicine 10/05/23 Grades 7 8 Tutor Relationship Specialty Start Date End Date Benedict Vallecillo MD [address] [place] [phone] PCP - General Family Medicine 10/05/23 Grades 7 8 Tutor Relationship Specialty Start Date End Date Benedict Vallecillo MD [address] [place] [phone] PCP - General Family Medicine 10/05/23 Grades 7 8 Tutor Relationship Specialty Start Date End Date Benedict Vallecillo MD [address] [place] [phone] PCP - General Family Medicine 10/05/23 Grades 7 8 Tutor Relationship Specialty Start Date End Date Benedict Vallecillo MD [address] [place] [phone] PCP - General Family Medicine 10/05/23 Grades 7 8 Tutor Relationship Specialty Start Date End Date Benedict Vallecillo MD [address] [place] [phone] PCP - General Family Medicine 10/05/23 Reason for Visit (unrecogniz ed section and content) Reason Comments Follow-up Surgical clearance Reason Comments Pain Reason Comments Medicare Annual Wellness Visit Subsequen t wellness Reason Comments Ingrown Toenail Serge Shine 79yo New p atient presents with BL great toe pain. Patient relates he has trouble reaching his toes to trim them. [id number] Vallecillo 07/18/2024 SS 12 FOR RECORDS PERTAINING TO PATIENTS WHO ARE [...] BE BASED ON THE PRIMARY CLINICAL RECORDS. [employer] [facility]. provides no warranty or guarantee of the accuracy or completeness of information in this document.
[2025-01-02 07:51] LABS: Basophils Percent Auto 0.6 % (0.2-2.0); Eosinophils Absolute Auto 0.1 10^3/uL (0.0-0.7); Eosinophils Percent Auto 2.1 % (0.9-7.0); Hematocrit 49.4 % (42.0-54.0); Hemoglobin 16.1 g/dL (14.0-18.0); Immature Granulocytes Abs Auto 0.02 10^3/uL (0.00-0.03); Immature Granulocytes Pct Auto 0.3 % (0.0-0.5); Lymphocytes Absolute Auto 1.2 10^3/uL (1.2-3.8); Lymphocytes Percent Auto 17.2 % (20.5-60.0); Mean Corpuscular HGB Conc 32.6 g/dL (29.9-35.2); Mean Corpuscular Hemoglobin 30.3 pg (25.9-34.0); Mean Platelet Volume 9.7 fL (9.5-13.5); Monocytes Absolute Auto 0.6 10^3/uL (0.3-0.8); Monocytes Percent Auto 9.4 % (1.7-12.0); Neutrophils Absolute Auto 4.7 10^3/uL (1.4-6.5); Neutrophils Percent Auto 70.4 % (43.0-75.0); Platelet Count 140 10^3/uL (150-450); Red Blood Count 5.31 10^6/uL (4.70-6.10); White Blood Count 6.7 10^3/uL (4.0-11.0)
[2025-01-02 08:18] LABS: Alanine Aminotransferase 32 U/L (16-63); Albumin Globulin Ratio 1.2; Albumin Level 3.8 g/dL (3.4-5.0); Alkaline Phosphatase 123 U/L (46-116); Anion Gap 11.6; Aspartate Amino Transferase 34 U/L (15-37); Bilirubin Total 0.9 mg/dL (0.2-1.0); Calcium 9.6 mg/dL (8.5-10.1); Carbon Dioxide 29.7 mmol/L (21.0-32.0); Chloride 103 mmol/L (98-107); Chol HDL Ratio 2.7; Cholesterol 108 mg/dL (<=200); Estimated GFR (African America >60 (>=60 mL/min/1.73m^2); Estimated GFR (Non-African Ame >60 (>=60 mL/min/1.73m^2); Globulin 3.3 g/dL; Glucose 118 mg/dL (74-106); HDL Cholesterol 40 mg/dL (40-60); LDL Cholesterol Calculated 41.6 mg/dL; Potassium 4.3 mmol/L (3.5-5.1); Sodium 140 mmol/L (136-145); Total Protein 7.1 g/dL (6.4-8.2); Triglycerides 132 mg/dL (<=150); VLDL CHOLESTEROL 26.4 mg/dL
== END 2025-01-02 07:25 | disposition home or self-care (01) ==
LOC: LAB 07:28
PROVIDERS: PCP Family Medicine; Visit Provider Internal Medicine Interventional Cardiology
DX: I25.10 Atherosclerotic heart disease of native coronary artery without angina pectoris (principal); Z86.711 Personal history of pulmonary embolism; I10 Essential (primary) hypertension
CPT/HCPCS: 36415; 80053; 80061; 85025

== ENCOUNTER 2025-01-17 07:12 | Outpatient (OUT) | payer MEDICARE, BC, SELFPAY ==
[2025-01-17 08:07] LABS: Creatinine Urine Random 51.43 mg/dL (20.00-300.00); Microalbum Creatinine Ratio Ur 25.2 mg/g (0.0-29.9); Microalbumin Urine Random 1.3 mg/dL (<=30.0)
[2025-01-17 08:22] LABS: Prostate Specific Antigen Scrn 0.31 ng/mL (<=4.00)
[2025-01-17 08:25] LABS: Estimated Average Glucose 137 mg/dL; Glycohemoglobin A1C 6.4 % (4.5-6.2)
== END 2025-01-17 07:13 | disposition home or self-care (01) ==
LOC: LAB 07:15
PROVIDERS: PCP Family Medicine; Visit Provider Family Medicine
DX: E11.65 Type 2 diabetes mellitus with hyperglycemia (principal); Z12.5 Encounter for screening for malignant neoplasm of prostate
CPT/HCPCS: 36415; 82043; 82570; 83036; G0103

== ENCOUNTER 2025-07-25 11:43 | Outpatient (OUT) | payer MEDICARE, BC, SELFPAY ==
--- OUTSIDE RECORDS SUMMARY | 2025-07-25 11:48 | XMS_ITS | Encounter Summary ---
Author Organization [facility] Address [address] [place] [address] Care Team Providers Care Handle Attacher Name Role Phone Benedict Ghosh MD Primary Care Provider [phone] Benedict Ghosh MD Unavailable Encounter Details DateTypeDepartmentCare Team (Latest Contact Info)Dzseyccxgfj39/17/2024Clinisync Result Encounter [facility] External Department Unsolicited Provider, Generic External Data Social History Tobacco UseTypesPacks/DayYears UsedDateSmoking Tobacco: FormerCigarettes Smokeless Tobacco: NeverAlcohol UseStandard Drinks/WeekCommentsYes0 (1 standard drink = 0.6 oz pure alcohol)B1300 Health LiteracyAnswerDate RecordedHow often do you need to have someone help you when you read instructions, pamphlets, or other written material from your doctor or pharmacy?Never01/09/2025Humiliation, Afraid, Rape, and Kick questionnaireAnswerDate RecordedWithin the last year, have you been afraid of your partner or ex-partner?No01/09/2025Within the last year, have you been humiliated or emotionally abused in other ways by your partner or ex-partner?No01/09/2025Within the last year, have you been kicked, hit, slapped, or otherwise physically hurt by your partner or ex-partner?No 01/09/2025Within the last year, have you been raped or forced to have any kind of sexual activity by your partner or ex-partner?No01/09/2025Social Connection and Isolation PanelAnswerDate RecordedIn a typical week, how many times do you talk on the phone with family, friends, or neighbors?More than three times a week01/09/2025How often do you get together with friends or relatives?Three times a week01/09/2025How often do you attend alevism or nondenominational services?More than 4 times per year01/09/2025Do you belong to any clubs or organizations such as alevism groups, unions, fraKlene Contractors or athletic groups, or school groups?Yes 01/09/2025How often do you attend meetings of the clubs or organizations you belong to?More than 4 times per year01/09/2025re you , , , , never , or living with a partner?Cgprdqc9101/09/2025 AUDIT-CAnswerDate RecordedQ1: How often do you have a drink containing alcohol? 2-3 times a week01/09/2025Q2: How many drinks containing alcohol do you have on a typical day when you are drinking?1 or Q3: How often do you have six or more drinks on one occasion?Never01/09/2025Overall Financial Resource Strain (CARDIA)AnswerDate RecordedHow hard is it for you to pay for the very basics like food, housing, medical care, and heating?Not hard at all01/09/2025 PHQ-2AnswerDate RecordedPatient Health Questionnaire-2 Eombc794Finen[facility] [place] [facility] Occupational Health - Occupational Stress QuestionnaireAnswerDate RecordedDo you feel stress - tense, restless, nervous, or anxious, or unable to sleep at night because yourmind is troubled all the time - these days?Not at all 01/09/2025Exercise Vital SignAnswerDate RecordedOn average, how many days per week do you engage in moderate to strenuous exercise (like a brisk walk)?7 days 01/09/2025On average, how many minutes do you engage in exercise at this level?0 min01/09/2025Hunger Vital SignAnswerDate RecordedWithin the past 12 months, you worried that your food would run out before you got the money to buymore.Never true01/09/2025Within the past 12 months, the food you bought just didn't last and you didn't have money to get more.Never true01/09/2025PRAPARE - TransportationAnswerDate RecordedIn the past 12 months, has lack of transportation kept you from medical appointments or from getting medications?No 01/09/2025In the past 12 months, has lack of transportation kept you from meetings, work, or from getting things needed for daily living?No01/09/2025 Housing Stability Vital SignAnswerDate RecordedIn the last 12 months, was there a time when you were not able to pay the mortgage or rent on time?No10/09/2023In the last 12 months, how many places have you lived?In the last 12 months, was there a time when you did not have a steady place to sleep or slept in genoaelter (including now)?No10/09/2023Housing Stability Vital SignAnswerDate RecordedIn the last 12 months, was there a time when you were not able to pay the mortgage or rent on time?No01/09/2025In the past 12 months, how many times have you moved where you were living?t any time in the past 12 months, were you homeless or living in a half-way (including now)?No01/09/2025Sex and Gender InformationValueDate RecordedSex Assigned at UkbxuBeev63/19/2023 8:57 PM EDTLegal QtkDnfm4311/26/2022 11:52 PM EDTGender LljlmnigFtbi17/19/2023 8:57 PM EDTSexual RuxzvuwoxkdOgppdkgq46/19/2023 8:57 PM EDTdocumented as of this encounter Functional Status * AUDIT-C ScoreAnswerDate of OhszviuqwzAjzvzo334/28/2025 9:43 AM Cesar Ram * Q1: How often do you have a drink containing alcohol?AnswerDate of Assessment Author2-3 times a week01/09/2025 9:43 AM Leanna Generic * Q2: How many drinks containing alcohol do you have on a typical day when you are drinking?AnswerDate of AssessmentAuthor1 or 9:43 AM LEENA Nobles, Generic * Q3: How often do you have six or more drinks on one occasion?AnswerDate of QfjfoymbnbTkspukHwogc07/28/2025 9:43 AM Leanna Generic * Over the past 2 weeks, how often have you been bothered by any of the following problems?QuestionAnswerDate of AssessmentAuthorLittle interest or pleasure in doing thingsNot at all07/18/2024 11:00 AM Bernadette Baird MA Feeling down, depressed, or hopelessNot at all07/18/2024 11:00 AM Bernadette Baird MAPatient Health Questionnaire-2 Ceyyf83509/17/2023 11:00 AM Bernadette Baird MA * QuestionAnswerDate of AssessmentAuthorTrouble falling or staying asleep, or sleeping too muchNot at all07/18/2024 11:00 AM Bernadette Baird MAFeeling tired or having little energyNot at all07/18/2024 11:00 AM Bernadette Baird MAPoor appetite or overeatingNot at all07/18/2024 11:00 AM Bernadette Baird MAFeeling bad about yourself - or that you are a failure or have let yourself or your family downNot at all07/18/2024 11:00 AM Bernadette Baird MATrouble concentrating on things, such as reading the newspaper or watching television Not at all07/18/2024 11:00 AM Bernadette Baird MAMoving or speaking so slowly that other people could have noticed? Or the opposite - being so fidgety or restless that you have been moving around a lot more than usual.Not at all 07/18/2024 11:00 AM Bernadette Baird MAThoughts that you would be better off or hurting yourself in some wayNot at all07/18/2024 11:00 AM Bernadette Baird MAPatient Health Questionnaire-9 Hmckj10609/17/2023 11:00 AM Bernadette Baird MA documented as of this encounter Plan of Treatment DateTypeDepartmentCare Team (Latest Contact Info)Odoftxvzhyp15/01/2027 8:00 AM EDTOffice Visit [facility] [address] [place] [id number] Rudi Luna, PA [address] [place] [address] documented as of this encounter Procedures Procedure NamePriorityDate/TimeAssociated DiagnosisCommentsCA ECHO DOPPLER GSSDBWWD99/17/2024 6:15 PM EDT documented in this encounter Results * CA ECHO DOPPLER COMPLETE (02/29/2024 6:15 PM EDT)Anatomical RegionLaterality ModalityOtherSpecimen (Source)Anatomical Location / LateralityCollection Method / VolumeCollection TimeReceived Time02/29/2024 6:15 PM EDT Narrative 02/29/2024 6:17 PM EDT [facility] ?[address] ? [place] [id number] ? Cardiology Report ? Signed ? Patient: RL,ELOY E ? MR#: [id number] ?? : 1945 ?Acct:[id number] ?? Age/Sex: 78 / M ?ADM Date: 02/29/24 ?? Loc: CARD ? Attending Dr: WILLIE CHAVEZ ? Ordering Physician: WILLIE CHAVEZ ?? Date of Service: 02/29/24 ?? Procedure(s): CA echo doppler complete ?? Accession Number(s): [id number] ? cc: WILLIE CHAVEZ; Benedict Ghosh M.D. ? Patient Name: ? ELOY SHINE ? MR#: [id number] ? : 1945 ? Exam Date: 02/29/2024 ?? Ordering Doctor: DR WILLIE CHAVEZ M.D. ? ECHOCARDIOGRAM REPORT ? PROCEDURE: ? CA ECHO DOPPLER COMPLETE ? INDICATIONS: ? CAD evaluation, h/o pulmonary embolism, hypertension, ?? diabetes ? COMPARISON: ? None. ? DESCRIPTION: ? COMPLETE ECHOCARDIOGRAM Real-time transthoracic ?? echocardiography with 2D, M-mode, spectral and color flow Doppler performed. ? QUALITY: ? Technical quality was good. ??72 , 224#, BP 118/68 ?? LEFT VENTRICLE: ? Normal chamber size. Proximal septal hypertrophy (sigmoid ?? septum). ??Normal systolic function. ? LV EF: Normal left ventricular ejection fraction, (>55%). DIASTOLIC: ? Diastolic function is indeterminate. ?? ATRIAL SEPTUM: ? Visually appears intact. ?? LEFT ATRIUM: ? Mild dilatation. ?? RIGHT ATRIUM: ? Mild dilatation. ?? RIGHT VENTRICLE: ? Normal chamber size. ??Normal right ventricular systolic ?? function. ? TRICUSPID VALVE: ? Normal mobility and thickness. No stenosis with no ?? regurgitation. ? MITRAL VALVE: ? Mildly thickened with normal mobility. ?? No evidence of ?? mitral valve stenosis. ??Mild mitral annular calcification. No mitral ?? regurgitation. ? AORTIC VALVE: ? Normal trileaflet appearance. Mildly calcified aortic valve. ?? Mildly diminished mobility. ??No evidence of aortic valve stenosis. No aortic ?? regurgitation. ? AORTIC ROOT: ? Normal diameter and appearance. Ascending aorta is normal in ?? size. ? PULMONIC VALVE: ? Normal thickness and mobility. No stenosis. Trivial ?? regurgitation. ? PERICARDIUM: ? No evidence of pericardial effusion. ? IVC: ? Collapses with inspirations. ? PLEURA: ? CONCLUSION: ? 1. Normal left ventricular size and systolic function. ??LVEF is 55 to 60%. ?? 2. Normal right ventricular size and systolic function. ?? 3. Mild biatrial dilatation. ?? 4. No significant valvular dysfunction. ? Adult Echocardiography Procedure Report ?? Left Ventricle ?? LVEDD (3.7 - 5.6 cm): ? 4.99 cm ?? LVESD (2.2 - 4.0 cm): ? 4.07 cm ?? LVIVS thickness (0.6 - 1.2 cm): ? 1.73 cm ?? LVPW thickness (0.5 - 1.0 cm): ? 0.91 cm ?? e': ? 0.09 m/s ?? E - e': ? 5.94 ?? LVOT Max Gradient: ? 4.64 mm[Hg] ?? LVOT Area (cm2): ? 1.08 m/s ?? Peak Velocity (LVOT): ? 1.08 m/s ?? Mean Velocity (LVOT): ? 0.71 m/s ?? LVOT Diameter ? 2.92 cm ?? Left Atrium ?? LA Volume Index (2D A2C): ? 19.64 ml/m2 ?? Left Atrium Systolic Dimension: ? 3.44 cm ?? Mitral Valve ?? MV E to A Ratio: ? 0.52 ?? Mitral Valve A-Wave Peak Velocity: ? 1.01 m/s ?? Mitral Valve E-Wave Peak Velocity: ? 0.52 m/s ?? Right Ventricle ?? Aorta ?? AO Root Diam: ? 4.22 cm ?? Ascending Ao Diam: ? 3.32 cm ?? Aortic Valve ?? AoV Area (Peak Antoine): ? 4.85 cm2, 4.85 cm2 ?? AoV Area (VTI): ? 5.38 cm2, 5.38 cm2 ?? Peak Velocity(Antegrade Flow): ? 1.49 m/s ?? Peak Gradient(Antegrade Flow): ? 8.84 mm[Hg] ?? Mean Velocity(Antegrade Flow): ? 1.02 m/s ?? Mean Gradient(Antegrade Flow): ? 4.92 mm[Hg] ?? Velocity Time Integral: ? 25.13 cm ?? Tricuspid Valve ?? Pulmonic Valve ?? Peak Velocity: ? 0.78 m/s ?? Peak Gradient: ? 2.40 mm[Hg] ?? Right Atrium ?? Right Atrium Systolic Pressure: ? 40.75 ml, 40.75 ml ? Dictated by: Willie Chavez M.D. on 02/29/2024 at 18:12 ? Approved by: Willie Chavez M.D. on 02/29/2024 at 18:15 ? Dictated By: ?WILLIE CHAVEZ ? Signed By: ?02/29/241816 ? DD/ ? TD/TT: ? Aircraft Structural Repair Mechanic: Procedure Note Radiology, Radiologist, - 02/29/2024 [place] [address] Cardiology Report Signed Patient: ELOY SHINE EMR#: [id number] : 1945cct:[id number] Age/Sex: 78 / MADM Date: 02/29/24 Loc: CARD Attending Dr: WILLIE CHAVEZ Ordering Physician: WILLIE CHAVEZ Date of Service: 02/29/24 Procedure(s): CA echo doppler complete Accession Number(s): [id number] cc: WILLIE CAHVEZ; Benedict Ghosh M.D. Patient Name: ELOY SHINE MR#: [id number] : 1945 Exam Date: 02/29/2024 Ordering Doctor: DR WILLIE CHAVEZ M.D. ECHOCARDIOGRAM REPORT PROCEDURE: CA ECHO DOPPLER COMPLETE INDICATIONS: CAD evaluation, h/o pulmonary embolism, hypertension, diabetes COMPARISON: None. DESCRIPTION: COMPLETE ECHOCARDIOGRAM Real-time transthoracic echocardiography with 2D, M-mode, spectral and color flow Dopplerperformed. QUALITY: Technical quality was good. 72 , 224#, BP 118/68 LEFT VENTRICLE: Normal chamber size. Proximal septal hypertrophy(sigmoid septum). Normal systolic function. LV EF: Normal left ventricular ejection fraction, (>55%). DIASTOLIC: Diastolic function is indeterminate. ATRIAL SEPTUM: Visually appears intact. LEFT ATRIUM: Mild dilatation. RIGHT ATRIUM: Mild dilatation. RIGHT VENTRICLE: Normal chamber size. Normal right ventricularsystolic function. TRICUSPID VALVE: Normal mobility and thickness. No stenosis with no regurgitation. MITRAL VALVE: Mildly thickened with normal mobility. No evidence of mitral valve stenosis. Mild mitral annular calcification. No mitral regurgitation. AORTIC VALVE: Normal trileaflet appearance. Mildly calcified aorticvalve. Mildly diminished mobility. No evidence of aortic valve stenosis. Noaortic regurgitation. AORTIC ROOT: Normal diameter and appearance. Ascending aorta is normalin size. PULMONIC VALVE: Normal thickness and mobility. No stenosis. Trivial regurgitation. PERICARDIUM: No evidence of pericardial effusion. IVC: Collapses with inspirations. PLEURA: CONCLUSION: 1. Normal left ventricular size and systolic function. LVEF is 55 to 60%. 2. Normal right ventricular size and systolic function. 3. Mild biatrial dilatation. 4. No significant valvular dysfunction. Adult Echocardiography Procedure Report Left Ventricle LVEDD (3.7 - 5.6 cm): 4.99 cm LVESD (2.2 - 4.0 cm): 4.07 cm LVIVS thickness (0.6 - 1.2 cm): 1.73 cm LVPW thickness (0.5 - 1.0 cm): 0.91 cm e': 0.09 m/s E - e': 5.94 LVOT Max Gradient: 4.64 mm[Hg] LVOT Area (cm2): 1.08 m/s Peak Velocity (LVOT): 1.08 m/s Mean Velocity (LVOT): 0.71 m/s LVOT Diameter 2.92 cm Left Atrium LA Volume Index (2D A2C): 19.64 ml/m2 Left Atrium Systolic Dimension: 3.44 cm Mitral Valve MV E to A Ratio: 0.52 Mitral Valve A-Wave Peak Velocity: 1.01 m/s Mitral Valve E-Wave Peak Velocity: 0.52 m/s Right Ventricle Aorta AO Root Diam: 4.22 cm Ascending Ao Diam: 3.32 cm Aortic Valve AoV Area (Peak Antoine): 4.85 cm2, 4.85 cm2 AoV Area (VTI): 5.38 cm2, 5.38 cm2 Peak Velocity(Antegrade Flow): 1.49 m/s Peak Gradient(Antegrade Flow): 8.84 mm[Hg] Mean Velocity(Antegrade Flow): 1.02 m/s Mean Gradient(Antegrade Flow): 4.92 mm[Hg] Velocity Time Integral: 25.13 cm Tricuspid Valve Pulmonic Valve Peak Velocity: 0.78 m/s Peak Gradient: 2.40 mm[Hg] Right Atrium Right Atrium Systolic Pressure: 40.75 ml, 40.75 ml Dictated by: Willie Chavez M.D. on 02/29/2024 at 18:12 Approved by: Willie Chavez M.D. on 02/29/2024 at 18:15 Dictated By: WILLIE CHAVEZ Signed By:02/29/241816 DD/ 14 TD/TT: Aircraft Structural Repair Mechanic: Authorizing ProviderResult TypeResult StatusGeneric External Data Provider CLINISYNC IMAGINGFinal Result documented in this encounter Visit Diagnoses Not on filedocumented in this encounter Care Teams Team MemberRelationshipSpecialtyStart DateEnd Date Benedict Ghosh MD PCP - GeneralFamily Medicine10/05/23 Benedict Ghosh MD [address] [place] [address] PCP - [facility]10/21/24documented as of this encounter
--- OUTSIDE RECORDS SUMMARY | 2025-07-25 11:48 | XMS_ITS | Clinical Summary ---
Author Organization [facility] Address [address] [place] [address] Care Team Providers Care Soup Mixer Name Role Phone Benedict Ghosh MD Primary Care Provider [phone] Allergies No known active allergies Medications MedicationSigDispense QuantityRefillsLast FilledStart DateEnd DateStatus apixaban (Eliquis) 5 mg tablet Take 5 mg by mouth twice a day.Active atorvastatin (Lipitor) 40 mg tablet Take 40 mg by mouth in the morning.Active empagliflozin (Jardiance) 25 mg 1 (one) time each day at the same time.Active lisinopril 20 mg tablet lisinopril 20 mg tabletActive glipiZIDE (Glucotrol) 10 mg tablet Take 10 mg by mouth in the morning.12/09/2023ctive aspirin 81 mg EC tablet Take 1 tablet by mouth in the morning.Active oxyCODONE-acetaminophen (Percocet) 5-325 mg tablet Take 1 tablet by mouth every 6 (six) hours if needed for moderate pain (4-7 pain score).01/04/2024ctive Active Problems ProblemNoted DateDiagnosed DatePresence of artificial knee joint, right 01/18/2024Left knee pain12/28/2023Obesity (BMI 30-39.9)12/11/2023Encounter for long-term (current) use of hsqndiwmtji18/29/2024enign essential hypertension 10/16/2023 Overview (02/10/2024): Last Assessment & Plan: BP typically controlled and monitor PRN. BPPV (benign paroxysmal positional vertigo)10/16/2023Gouty vuowooxxu56/02/2024 Overview (02/10/2024): Last Assessment & Plan: No flares and monitor. Nonalcoholic fatty liver10/16/2023reop vtkahvckqmu26/02/2024 Overview (02/10/2024): Last Assessment & Plan: Able to proceed with upcoming surgery at low to intermediate risk for complications. History of CADand cleared by cardiology. History of DM and HTN that are typically controlled with medication. Not having chest pain or palpitations. Recommend routine PAT. PVD (peripheral vascular disease)10/16/2023 Overview (02/10/2024): Last Assessment & Plan: No pain and continue medication. Type 2 diabetes mellitus with hyperglycemia, without long-term current use of jidszss4210/16/2023 Overview (02/10/2024): Last Assessment & Plan: Not checking BS and recent A1C 6.7. Stick to ADA diet and limit carbs. Pre-operative cardiovascular xinjqkejipk73/22/2023 Assessment & Plan (08/05/2023 10:45 AM EST): RCRI= 1??points Class II Risk 6.0??% 30-day risk of , RI, or cardiac arrest From a cardiology perspective pt may proceed with planned Lt TKA, he is a low to moderate risk for moderate risk surgery, he may hold eliquis 2-3 days prior to surgery. Please resume all meds post op and monitor hemodynamics carefully and prevent any major fluid shifts. Osteoarthritis of knee Assessment & Plan (08/05/2023 10:46 AM EST): Planning for Lt TKA Primary jrlcmakaijwcfj28oronary artery disease involving [place] coronary artery of [place] heart without angina wegmozrn96/24/2023 Assessment & Plan (08/05/2023 9:20 AM EST): Coronary artery disease is stable Continue GDMT- ASA, lipitor, lisinopril continue risk factor modifications- heart healthy diet, regular exercise as tolerated and continue all medications. He remains very active without any limiting symptoms Assessment & Plan (02/04/2023 3:09 PM EDT): Coronary artery disease is stable without any concerning symptoms Continue GDMT- ASA, lipitor and lisinopril continue risk factor modifications- heart healthy diet, regular exercise as tolerated and continue all medications. Continue GDMT- Presence of drug coated stent in right coronary jexakk1902/04/2023 Assessment & Plan (08/05/2023 6:53 AM EST): Continue GDMT Assessment & Plan (02/04/2023 2:19 PM EDT): Stable Mixed qcddvhprptqequ38/24/2023 Assessment & Plan (08/05/2023 6:51 AM EST): Continue lipitor Routine annual labs due around next November Assessment & Plan (02/04/2023 2:19 PM EDT): Chol and LDL well controlled for CAD Continue statin Chronic pulmonary embolism without acute cor jdxzolrrl07/24/2023 Overview (02/04/2023): H/O PE s/p thrombectomy/thrombolisis Cardiac arrest x2 in 2019 Assessment & Plan (08/05/2023 6:52 AM EST): H/O PE s/p thrombectomy/thrombolisis Cardiac arrest x2 in 2019 Lifelong anticoagulation- remains on eliquis Assessment & Plan (02/04/2023 3:11 PM EDT): Remains on lifeling eliquis anticoagulation No bleeding tendencies Heart block Resolved Problems ProblemNoted DateDiagnosed DateResolved DateH/O pulmonary embolus during nwfimhhgt88/2023 Family History Medical HistoryRelationNameCommentsCancerBrotherCancerFatherNo Known Problems MotherRelationNameStatusCommentsBrotherDeceasedFatherDeceasedMotherDeceased SisterAlive Social History Tobacco UseTypesPacks/DayYears UsedDateSmoking Tobacco: FormerCigarettesQuit: 08/1995Smokeless Tobacco: Never Tobacco Cessation:Counseling Given: Not Answered Alcohol UseStandard Drinks/WeekCommentsNot Asked0 (1 standard drink = 0.6 oz pure alcohol)occasionalUT Safety & EnvironmentAnswerDate RecordedFear of Current or Ex-PartnerNot on file11/05/2023Emotionally AbusedNot on 11/05/2023 Physically AbusedNot on 11/05/2023Sexually AbusedNot on 11/05/2023 Physically or Sexually AbusedNot on file11/05/2023Sex and Gender Information ValueDate RecordedSex Assigned at BirthNot on fileLegal RfsMius9803/12/2022 10:32 PM EDTGender IdentityNot on fileSexual OrientationNot on file Last Filed Vital Signs Vital SignReadingTime TakenCommentsBlood Xizdhcsk095/7604 11:14 AM EDT Aofuj464512/30/2024 11:14 AM EDTTemperature--Respiratory Rate--Oxygen Saturation 99%12/30/2024 11:14 AM EDTInhaled Oxygen Concentration--Zywpwg181 kg (224 lb) 12/30/2024 11:14 AM VNSAocboc962.9 cm (6')12/30/2024 11:14 AM EDTBody Mass Index 30.38012/30/2024 11:14 AM EDT Plan of Treatment Health MaintenanceDue DateLast DoneCommentsMedicare Annual Wellness (AWV) 1945Diabetes: Retinopathy Jvwmimzhw18/28/1956Depression Screening 1958Diabetes: Urine Protein Rcktvrngu99/28/1965Adult Oyojkek7604/10/1968 Zoster Vaccines (1 of 2)1996Fall Risk Leaaphesm53/28/2011Pneumococcal Vaccine: 50+ Years (2 of 2 - PCV)05/22/731023/22/2019Diabetes: Hemoglobin A1C 403/4COVID-19 Vaccine ( season)/11/2022, 07/22/2022, 07/22/2022, Additional history existsInfluenza Vaccine (#1) 501/03/2025, 07/17/2023, 07/22/2022HIB VaccinesAged OutNo longer eligible based on patient's age to complete this topicHPV VaccinesAged OutNo longer eligible based on patient's age to complete this topicIPV VaccinesAged OutNo longer eligible based on patient's age to complete this topicMeningococcal B VaccineAged OutNo longer eligible based on patient's age to complete this topicMeningococcal VaccineAged OutNo longer eligible based on patient's age to complete this topicRotavirus VaccinesAged OutNo longer eligible based on patient's age to complete this topic Insurance Care Teams Team MemberRelationshipSpecialtyStart DateEnd Date Benedict Ghosh MD [address] [place] [address] PCP - General02/03/23
--- OUTSIDE RECORDS SUMMARY | 2025-07-25 11:48 | XMS_ITS | Clinical Summary ---
Author Organization [facility] Address [address] [place] [address] Care Team Providers Care Scraper Operator Name Role Phone Benedict Ghosh MD Primary Care Provider [phone] Benedict Ghosh MD Unavailable Allergies No known active allergies Medications MedicationSigDispense QuantityRefillsLast FilledStart DateEnd DateStatus Multiple Vitamins-Minerals (PreserVision AREDS 2) capsule 1 tablet Orally two times dailyActive glipiZIDE (Glucotrol) 10 MG tablet Indications:Type 2 diabetes mellitus with hyperglycemia, without long-term current use of insulin (HCC)TAKE 1 TABLET BY MOUTH DAILY 90 tablet 5Active apixaban (Eliquis) 5 MG tablet Indications:Chronic pulmonary embolism without acute cor pulmonale, unspecified pulmonary embolism type (HCC)Take 1 tablet (5 mg) by mouth in the morning and 1 tablet (5 mg) before bedtime. 180 tablet 5Active atorvastatin (Lipitor) 40 MG tablet Indications:Coronary artery disease involving [place] coronary artery of [place] heart without angina pectorisTake 1 tablet (40 mg) by mouth at bedtime 90 tablet 5Active empagliflozin (Jardiance) 25 MG Indications:Type 2 diabetes mellitus with hyperglycemia, without long-term current use of insulin (HCC)Take 1 tablet (25 mg) by mouth Daily 90 tablet 5Active lisinopril 20 MG tablet Indications:Primary hypertensionTake 1 tablet (20 mg) by mouth Daily 90 tablet 5Active Active Problems ProblemNoted DateDiagnosed DateMedicare annual wellness visit, subsequent 07/18/2024 Assessment & Plan (07/18/2024 12:04 PM EST): Due for labs. Discussed proper diet and regular aerobic exercise. Need aerobic exercise 5-6 days a week for 30 minutes at a time. Smaller portions and limit total calories. Tetanus every 10 years. Advised not to smoke. Presence of artificial knee joint, right01/18/2024Screening PSA (prostate specific antigen)12/11/2023Encounter for long-term (current) use of medications 12/11/2023Obesity (BMI 30-39.9)12/11/2023enign essential anaiypriwopb02/02/2024 Assessment & Plan (01/16/2025 8:46 AM EDT): BP typically controlled and monitor PRN. Assessment & Plan (12/11/2023 10:31 AM EDT): BP typically controlled and monitor PRN. Assessment & Plan (10/16/2023 12:23 PM EST): BP typically controlled and monitor PRN. BPPV (benign paroxysmal positional vertigo)10/16/2023Gouty dfbhgnfve20/02/2024 Assessment & Plan (01/16/2025 8:47 AM EDT): No flares and monitor. Assessment & Plan (12/11/2023 10:32 AM EDT): No flares and monitor. Type 2 diabetes mellitus with hyperglycemia, without long-term current use of ktbmiiq3410/16/2023 Assessment & Plan (01/16/2025 8:48 AM EDT): Reports BS controlled and due for A1C. Stick to ADA diet and limit carbs. Assessment & Plan (12/11/2023 10:33 AM EDT): Not checking BS and recent A1C 6.7. Stick to ADA diet and limit carbs. Assessment & Plan (10/16/2023 12:23 PM EST): Not checking BS and due for A1C. Stick to ADA diet and limit carbs. Nonalcoholic fatty liver10/16/2023VD (peripheral vascular disease)10/16/2023 Assessment & Plan (12/11/2023 10:32 AM EDT): No pain and continue medication. Preop raufalyxrvt60/02/2024 Assessment & Plan (12/11/2023 10:32 AM EDT): Able to proceed with upcoming surgery at low to intermediate risk for complications. History of CADand cleared by cardiology. History of DM and HTN that are typically controlled with medication. Not having chest pain or palpitations. Recommend routine PAT. Assessment & Plan (10/16/2023 12:22 PM EST): Able to proceed with upcoming surgery at low to intermediate risk for complications. History of CADand cleared by cardiology. History of DM and HTN that are typically controlled with medication. Nothaving chest pain or palpitations. Recommend routine PAT. Osteoarthritis of knee04/22/2023 Assessment & Plan (01/16/2025 8:47 AM EDT): Doing well after replacement and continue regular activity. Primary osteoarthritis of left knee04/22/2023 Assessment & Plan (12/11/2023 10:32 AM EDT): Increased pain and unsteadiness. Follow up with ortho for surgery. Assessment & Plan (10/16/2023 12:22 PM EST): Increased pain and unsteadiness. Follow up with ortho for surgery. Chronic pulmonary embolism without acute cor nperxoiza47/24/2023 Overview (04/22/2023): H/O PE s/p thrombectomy/thrombolisis Cardiac arrest x2 in 2019 Last Assessment & Plan: Remains on lifeling eliquis anticoagulation No bleeding tendencies Coronary artery disease involving [place] coronary artery of [place] heart without angina iopufopy84/24/2023 Overview (04/22/2023): Last Assessment & Plan: Coronary artery disease is stable without any concerning symptoms Continue GDMT- ASA, lipitor and lisinopril continue risk factor modifications- heart healthy diet, regular exercise as tolerated and continue all medications. Continue GDMT- Assessment & Plan (12/11/2023 10:32 AM EDT): No pain and follow up with cardiology. Assessment & Plan (10/16/2023 12:23 PM EST): No pain and follow up with cardiology. Mixed nfffpvheljbadd02/24/2023 Overview (04/22/2023): Last Assessment & Plan: Chol and LDL well controlled for CAD Continue statin Presence of drug coated stent in right coronary vhnokr3902/04/2023 Overview (04/22/2023): Last Assessment & Plan: Stable History of pulmonary hmgynjoj54/09/2021Heart block06/21/2019 Resolved Problems ProblemNoted DateDiagnosed DateResolved DateCoronary ehprjfbsqomurgcc26/08/2019 10/16/2023 Immunizations ImmunizationAdministration DatesNext DueInfluenza, High-dose Seasonal, Quadrivalent, Preservative Free07/22/2022Moderna Bivalent Booster Vaccination 07/22/2022neumococcal Polysaccharide TVRY0593 Family History Medical HistoryRelationNameCommentsCancerFatherElmer RossProstate cancerFather Brice RossCoronary artery diseaseMotherRelationNameStatusCommentsFatherElmer RossDeceasedMotherDeceased Social History Tobacco UseTypesPacks/DayYears UsedDateSmoking Tobacco: DjffqiUxmziecftr029Gunk: 08/07/1995 Tobacco Cessation:Counseling Given: Not Answered Alcohol UseStandard Drinks/WeekCommentsYes6 (1 standard drink = 0.6 oz pure [...] otherwise physically hurt by your partner or ex-partner?No01/09/2025Within the last year, have you been raped or forced to have any kind of sexual activity by your partner or ex-partner?No01/09/2025Social Connection and Isolation Panel AnswerDate RecordedIn a typical week, how many times do you talk on the phone with family, friends, or neighbors?More than three times a week01/09/2025How often do you get together with friends or relatives?Three times a week01/09/2025 How often do you attend jainism or baptism services?More than 4 times per year 01/09/2025Do you belong to any clubs or organizations such as jainism groups, unions, fraternal or athletic groups, or school groups?Yes01/09/2025How often do you attend meetings of the clubs or organizations you belong to?More than 4 times per year01/09/2025re you , , , , never , or living with a partner?Oeimicj5601/09/2025UDIT-CAnswerDate RecordedQ1: How often do you have a drink containing alcohol?2-3 times a week01/09/2025Q2: How many drinks containing alcohol do you have on a typical day when you are drinking?1 or Q3: How often do you have six or more drinks on one occasion?Never01/09/2025Overall Financial Resource Strain (CARDIA)AnswerDate RecordedHow hard is it for you to pay for the very basics like food, housing, medical care, and heating?Not hard at all01/09/2025PHQ-2AnswerDate Recorded Patient Health Questionnaire-2 Ckwjc114FinSelect Specialty [facility] of Occupational Health - Occupational Stress QuestionnaireAnswerDate RecordedDo you feel stress - tense, restless, nervous, or anxious, or unable to sleep at night because your mind is troubled all the time - these days?Not at all01/09/2025Exercise Vital SignAnswerDate RecordedOn average, how many days per week do you engage in moderate to strenuous exercise (like a brisk walk)?7 days01/09/2025On average, how many minutes do you engage in exercise at this level?0 min01/09/2025Hunger Vital SignAnswerDate RecordedWithin the past 12 months, you worried that your food would run out before you got the money to buymore.Never true01/09/2025 Within the past 12 months, the food you bought just didn't last and you didn't have money to get more.Never true01/09/2025PRAPARE - TransportationAnswerDate RecordedIn the past 12 months, has lack of transportation kept you from medical appointments or from getting medications?No01/09/2025In the past 12 months, has lack of transportation kept you from meetings, work, or from getting things needed for daily living?No01/09/2025Housing Stability Vital SignAnswerDate RecordedIn the last 12 months, was there a time when you were not able to pay the mortgage or rent on time?No10/09/2023In the last 12 months, how many places have you lived?In the last 12 months, was there a time when you did not have a steady place to sleep or slept in [place] (including now)?No 10/09/2023Housing Stability Vital SignAnswerDate RecordedIn the last 12 months, was there a time when you were not able to pay the mortgage or rent on time?No 01/09/2025In the past 12 months, how many times have you moved where you were living?t any time in the past 12 months, were you homeless or living in a prison (including now)?No01/09/2025Sex and Gender InformationValueDate RecordedSex Assigned at JzbhnDyjj67/19/2023 8:57 PM EDTLegal OdbDqgz2311/26/2022 11:52 PM EDTGender LevhgeepIilr89/19/2023 8:57 PM EDTSexual OrientationStraight 03/02/2023 8:57 PM EDT Last Filed Vital Signs Vital SignReadingTime TakenCommentsBlood Wrgwyful197/70001/16/2025 8:15 AM EDT Klpyf32043/05/2025 8:15 AM GLZKtzjrcleuze92.4 ??C (97.5 ??F)01/16/2025 8:15 AM EDTRespiratory Mape1536 8:15 AM EDTOxygen Cdaqgpkooh81%01/16/2025 8:15 AM EDTInhaled Oxygen Concentration--Yvckqr376 kg (221 lb)02/02/2025 8:42 AM EDT Kjfljx771.9 cm (6')02/02/2025 8:42 AM EDTBody Mass Index29.9702/02/2025 8:42 AM EDT Plan of Treatment DateTypeDepartmentCare Team (Latest Contact Info)Rxysughkhnw63/01/2027 8:00 AM EDTOffice Visit [facility] [address] [place] [address] Rudi Luna, PA [address] [phone] Health MaintenanceDue DateLast DoneCommentsMedicare Annual Wellness (AWV) 1946Pneumococcal Vaccine: 65+ Years (2 of 2 - PCV) Diabetes: Retinopathy Bputaozhr03/2Diabetes: Hemoglobin A1C /, 4COVID-19 Vaccine ( season)2025 07/17/2023, 07/22/2022, 01/30/2022, Additional history existsInfluenza Vaccine (#1)501/03/2025, 07/17/2023, 2Diabetes: Urine Protein Pmchuknam02/06/544758/02/2025, 12/11/2023, 11/13/2022 Procedures Procedure NamePriorityDate/TimeAssociated DiagnosisCommentsHEMOGLOBIN U1UQjbauge 12/03/2023 9:28 AM EDT from Last 3 Months or Most Recently Relevant to Health Maintenance Results * (ABNORMAL) Hemoglobin A1c (12/03/2023 9:28 AM EDT)ComponentValueRef RangeTest MethodAnalysis TimePerformed AtPathologist SignatureHEMOGLOBIN A1C6.7(H)4.4 - 5.6 %PROMEDICAComment: NOTE ? ADA Guidelines ? Result ?HgbA1c ?Normal : ? less than 5.7 % ?Prediabetes : ?5.7 % ??to 6.4 % Diabetes : > 6.4 % Use with caution in patients with abnormal hemoglobin variants as the half-life of red blood cells and in vivo glycation rates are affected. AVERAGE LMQNEBN002uv/dLPROMEDICASpecimen (Source)Anatomical Location / LateralityCollection Method / VolumeCollection TimeReceived Time12/03/2023 9:28 AM EDT12/03/2023 9:30 AM EDT Narrative Authorizing ProviderResult TypeResult StatusJr. Darrick Woods DOLAB BLOOD ORDERABLESFinal ResultPerforming OrganizationAddressCity/State/ZIP CodePhone Number [place] from Last 3 Months or Most Recently Relevant to Health Maintenance Insurance Care Teams Team MemberRelationshipSpecialtyStart DateEnd Date Benedict Ghosh MD PCP - GeneralFamily Medicine10/05/23 Benedict Ghosh MD [address] [place] [address] PCP - [facility]10/21/24
--- OUTSIDE RECORDS SUMMARY | 2025-07-25 11:48 | XMS_ITS | Clinical Summary ---
Author Organization [facility] Address [address] [place] [id number] Care Team Providers Care Sales Operations Director Name Role Phone Benedict Ghosh MD Primary Care Provider [phone] Allergies No known active allergies Medications MedicationSigDispense QuantityRefillsLast FilledStart DateEnd DateStatus aspirin, enteric coated (ASPIRIN, ENTERIC COATED) 81 mg EC tablet Take 81 mg by mouth once daily.Active apixaban (ELIQUIS) 5 mg tab(s) Take 5 mg by mouth twice daily.Active clopidogrel (PLAVIX) 75 mg tablet Take 75 mg by mouth once daily.Active atorvastatin (LIPITOR) 40 mg tablet Take 40 mg by mouth once daily.Active canagliflozin (INVOKANA) 100 mg tab Take 100 mg by mouth daily with breakfast.Active Social History Tobacco UseTypesPacks/DayYears UsedDateSmoking Tobacco: FormerCigarettes Smokeless Tobacco: Never Comments:Quit smoking Aug 281994 Alcohol UseStandard Drinks/WeekCommentsYes0 (1 standard drink = 0.6 oz pure alcohol)AUDIT-CAnswerDate RecordedFrequency of Alcohol Consumption2-3 times a week06/16/2019Average Number of DrinksNot on file06/16/2019Frequency of Binge DrinkingNot on file06/16/2019Sex and Gender InformationValueDate RecordedSex Assigned at BirthNot on fileLegal HroZdma43/03/2018 10:26 AM EDTGender Identity Not on fileSexual OrientationNot on file Last Filed Vital Signs Vital SignReadingTime TakenCommentsBlood Qzfmhtll536/6810 3:06 PM EDT Vjckd8988 3:06 PM PRURxqjpihovif92.7 ??C (98 ??F)06/16/2019 3:06 PM EDT Respiratory Roes733211/2018 3:06 PM EDTOxygen Ktslpfwgtn75%06/16/2019 3:06 PM EDTInhaled Oxygen Concentration--Epglcp049.6 kg (235 lb)06/16/2019 3:06 PM EDT Gynwbb795.8 cm (5' 10 )06/16/2019 3:06 PM EDTBody Mass Index33.7206/16/2019 3:06 PM EDT Plan of Treatment Health MaintenanceDue DateLast DoneCommentsAnxiety Hwncstrsn51/28/1964Depression Eavqnhmwj64/28/1964DTaP,Tdap,Td Vaccine (1 - Tdap)1965Diabetes Screening 1991Pneumococcal Vaccine: 50+ (1 of 1 - PCV)1996Shingrix Vaccine (1 of 2)1996RSV Vaccine (1 - 1-dose 75+ series)2021dvance Directive Xkxuowszps16/01/2025ovid-19 Vaccine (1 - 2024- season)2025Influenza Vaccine (#1)[address] [place] [address] Care Teams Team MemberRelationshipSpecialtyStart DateEnd Date Benedict Ghosh MD [address] [place] [address] PCP - GeneralFamily Medicine06/06/19
--- OUTSIDE RECORDS SUMMARY | 2025-07-25 11:48 | XMS_ITS | Clinical Summary ---
Author Organization [facility] Address [id number] [address] 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 Name Role Phone Benedict Ghosh MD Primary Care Provider [phone] Allergies No known active allergies Medications MedicationSigDispense QuantityRefillsLast FilledStart DateEnd DateStatus atorvastatin (LIPITOR) 40 mg tablet Take 1 tablet (40 mg total) by mouth in the morning.09/18/2023ctive JARDIANCE 25 mg tablet tablet Take 1 tablet (25 mg total) by mouth in the morning.09/18/2023ctive glipiZIDE (GLUCOTROL) 10 mg tablet Take 1 tablet (10 mg total) by mouth in the morning.Active lisinopriL (PRINIVIL,ZESTRIL) 20 mg tablet Take 1 tablet (20 mg total) by mouth in the morning.09/18/2023ctive nneqczxf-zown-LL-calcium &mins (THERAGRAN-M) 9 mg iron-400 mcg tablet Take 1 tablet by mouth in the morning.Active vit C/E/zinc ox/ginny/lut/zeax (ICAPS AREDS2 ORAL) Take 1 tablet by mouth in the morning.Active apixaban (ELIQUIS) 5 mg tablet Indications:knee replacement deep vein thrombosis preventionTake 0.5 tablets (2.5 mg total) by mouth in the morning and 0.5 tablets (2.5 mg total) before bedtime. Indications: deep vein thrombosis prevention in knee replacement.Active Active Problems ProblemNoted DateDiagnosed DateLeft knee pain12/28/2023 Immunizations ImmunizationAdministration DatesNext DueCOVID-19, mRNA, LNP-S, PF, 30mcg/0.3mL Dose11/24/2020,11/03/2020 Social History Tobacco UseTypesPacks/DayYears UsedDateSmoking Tobacco: FormerCigarettesQuit: 1994Smokeless Tobacco: Never Tobacco Cessation:Counseling Given: Not Answered Alcohol UseStandard Drinks/WeekCommentsYes4 (1 standard drink = 0.6 oz pure alcohol)[facility] UtilitiesAnswerDate RecordedIn the past 12 months has the [employer], gas, oil, or water [employer] threatened to shut off services in your home?No 12/29/2023RAPARE - TransportationAnswerDate RecordedIn the past 12 months, has lack of transportation kept you from medical appointments or from getting medications?No12/29/2023In the past 12 months, has lack of transportation kept you from meetings, work, or from getting things needed for daily living?No 12/29/2023Housing InstabilityAnswerDate RecordedAre you worried or concerned that in the next two months you may not have stable housing that you own, rent or stay in as a part of a household?No4ChildcareAnswerDate Recorded OtivretueLrktdwv86/12/2019EmploymentAnswerDate RecordedEmploymentUnknown 02/23/2019Hunger ScreeningAnswerDate RecordedWithin the past 12 months we worried whether our food would run out before we got money to buy more.Never True12/29/2023Within the past 12 months the food we bought just didn't last and we didn't have money to get more.Never True4Purpose - LifeAnswerDate RecordedPurpose and direction in ogodXetzdot46/11/2021ex and Gender Information ValueDate RecordedSex Assigned at PxpwvJrpt72/28/2024 8:13 AM ESTLegal SexMale 04/19/2015 11:51 AM EDTGender UpaayyuaKqtu33/28/2024 8:13 AM ESTSexual YyjiddvwcsgIlkdxrul63/28/2024 8:13 AM EST Last Filed Vital Signs Vital SignReadingTime TakenCommentsBlood Ysyjchov028/5004 12:23 PM EDT Fvrgs3070 12:23 PM TOFNidxpxolnon15.3 ??C (97.4 ??F)12/29/2023 12:23 PM EDTRespiratory Ksyo094812/29/2023 12:23 PM EDTOxygen Xpwoyomydw68%12/29/2023 12:23 PM EDTInhaled Oxygen Concentration--Iicjhe521.4 kg (239 lb)12/29/2023 6:30 AM CGFCwyvhx256.9 cm (6')12/29/2023 6:30 AM EDTBody Mass Index32.41012/29/2023 6:30 AM EDT Plan of Treatment Health MaintenanceDue DateLast DoneCommentsDepression Ogqkjlnnn00/28/1958 DTaP,Tdap and Td Vaccines (1 - Tdap)1965Zoster (Shingles) Vaccine (1 of 2) 1996Fall Risk Gqdvkxovv65/28/2011RSV ( or age 60+ yrs) (1 - 1-dose 75+ series)2021Tobacco Fuduomqpl69/16/6621274COVID-19 Vaccine ( season), 07/22/2022, 01/30/2022, Additional history existsInfluenza Jtugnkd10/11/2022, 07/22/2022 Goals GoalPatient Goal TypeAssociated ProblemsRecent ProgressPatient-Stated?Author home Fabiola Monzon LSW Note: Evaluation of progress towards goal: has been up with therapy, hopes to DC to home later Medical Devices ImplantedTypeAreaManufacturerDevice IdentifierShelf Expiration DateModel / Serial / LotCement Bn Bio 40gm Rpl [id number] - Sna - [id number] Implanted:Qty: 2 on 12/29/2023 by Darrick Woods Jr[facility]RE[facility]TCementLeft: KneeZimmer [id number] / NA / [id number] Artc 7-10 G-H 10mm Kn Fx Brng Prlng Nxgn Lpsflx Strl Rpl [id number] + [id number] - Sna - [id number] Implanted:Qty: 1 on 12/29/2023 by Darrick Woods Jr., DO at [facility] ImplantLeft: KneeZimmer Kwwmme3007/10/2028 [id number] / NA / [id number] Fem G Kn Lt Cmnt Nxgn Lpsflx Opt Zml Prlng Strl Rpl [id number] + [id number] - Sna - [id number] Implanted:Qty: 1 on 12/29/2023 by Darrick Woods Jr., DO at [facility] ImplantLeft: KneeZimmer Pemiob5803/09/[id number] / NA / [id number] Ptlr 35mm Persona Alply Kn Strl Lf - Sna - [id number] Implanted:Qty: 1 on 12/29/2023 by Darrick Woods Jr., DO at [facility] ImplantLeft: KneeZimmer Kzeeso3908/31/2028 [id number] / NA / [id number] Tib 75h79lz Nxgn Kn Cmnt Mdlr Stm Prect 7 Tiv Pmma Rpl [id number] + [id number] - Sna - [id number] Implanted:Qty: 1 on 12/29/2023 by Darrick Woods Jr[facility]: KneeZimmer [id number] / NA / [id number]uspcqWdaual IdentifierShelf Expiration DateModel / Serial / LotScrew Gd 48mm Qd-Spr Hex Hd Mis Strl - Sna - [id number] Explanted:Qty: 1 on 12/29/2023 [facility] KneeZimmer [id number] / NA / [id number] Gd 48mm Qd-Spr Hex Hd Mis Strl - Sna - [id number] Explanted:Qty: 1 on 12/29/2023 by Darrick Woods Jr[facility]: KneeZimmer [id number] / NA / [id number] Bn 35mm 6.5mm St Hip Actb Trlg Strl Rpl [id number] - Sna - [id number] Explanted:Qty: 2 on 12/29/2023 by [facility] KneeZimmer Rgkmgh11/18/[id number] / NA / [id number] [place] [address] [place] [address] Advance Directives * Full Code (Latest Code Status on File) Date ActivatedDate InactivatedComments12/28/2023 8:07 PM12/28/2023 8:46 PM Care Teams Team MemberRelationshipSpecialtyStart DateEnd Date Benedict Ghosh MD [facility]12/22/23
--- OUTSIDE RECORDS SUMMARY | 2025-07-25 11:49 | XMS_ITS | CCD ---
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 [facility] Care Team Providers Care Master Merchandiser Name Role Phone UNKNOWN, PROVIDER Admitting Unavailable LUX ORTIZ Referring Unavailable KATTYEREBENEDICT Melton Primary Care Unavailable JACQUELYN STEIN Attending Unavailable TX Procedure Practitioner Unavailab le UNKNOWN, PROVIDER Surgeon Unavailable AVEL, DR BENEDICT Brush Consulting Unavailable NADERER, DR BENEDICT Brush Attending Unavailable NADEREGeronimo, DR BENEDICT Brush Admitting Unavailable NADEREGeronimo, DR BENEDICT Brush Primary Care Unavailable NADEREGeronimo, DR BENEDICT Brush Primary Care Unavailable NADEREGeronimo, DR BENEDICT Brush Consulting Unavailable NADEREGeronimo, DR BENEDICT Brush Attending Unavailable NADDELPHINE, DR BENEDICT Brush Admitting Unavailable Benedict Vallecillo MD Primary Care Provider WILLIE WOODS JR Referring Unavailabl e STEPANIC JR, WILLIE Manzano Referring Unavailabl e STEPANIC JR, WILLIE Manzano Attending Unavailabl e STEPANIC JRWILLIE Referring Unavailabl e STEPANIC JR, WILLIE Manzano Attending Unavailabl e STEPANIC JRWILLIE Referring Unavailabl e STEPANIC JR, WILLIE Manzano Referring Unavailabl e NADEREBENEDICT Melton Primary Care Unavailable WILLIE WOODS JR Referring Unavailabl e NADERERBENEDICT Primary Care Unavailable STEPWILLIE REED JR Admitting Unavailabl e STEPANIC JR, WILLIE Manzano Attending Unavailabl e Unavailable Primary Care Provider UnavailBenedict Jefferson MD Unavailable IWLLIE CHAVEZ Attending Unavailable WILLIE CHAVEZ Attending Unavailable BENEDICT VALLECILLO Attending Unavailable KIA JOSHI Attending Unavailable BENEDICT VALLECILLO Attending Unavailable KIA JOSHI Attending Unavailable BERNICE LUNA Attending Unavailable BERNICE LUNA Referring Unavailable Benedict Vallecillo MD Primary Care Provider Benedict Vallecillo MD Unavailable Allergies Allergy ClassificationReported Allergen(s)Allergy TypeDate of OnsetReaction(s) Facility (1 source)30474,00Drug allergy (disorder)66-39-3929[facility] Repository Medications Current Medications MedicationDrug Class(es)DatesSig (Normalized)Sig (Original)apixaban 5 mg oral tablet (20 sources)Factor Xa InhibitorStart: 46-47-7848mkdy 1 tablet by mouth in the morningapixaban (Eliquis) 5 MG tablet Indications: Chronic pulmonary embolism without acute cor pulmonale,unspecified pulmonary embolism type (HCC) Take 1 tablet (5 mg) by mouth in the morning and 1 tablet(5 mg) before bedtime. 180 tablet 3 10/21/2024 ActiveStart: 60-79-5400pmut 1 tablet by mouth twice daily apixaban (Eliquis) 5 MG tablet Indications: Chronic pulmonary embolism without acute cor pulmonale,unspecified pulmonary embolism type (CMS/HCC) TAKE 1 TABLET BY MOUTH TWICE DAILY 180 tablet 3 07/28/2024 ActiveStart: 60-84-7144ysfy 1 tablet by mouth twice dailyEliquis 5 MG tablet Indications: Chronic pulmonary embolism [...] 0.5 mg / zinc oxide 17.4 mg oralcapsule (20 sources)Vitamin Ctake 1 tablet by mouth twice dailyMultiple Vitamins- Minerals (PreserVision AREDS 2) capsule 1 tablet Orally two times daily Active aspirin 81 mg delayed release oral tablet (10 sources)Platelet Aggregation Inhibitor, Nonsteroidal Anti-inflammatory Drug End: 56-65-8193lbas 1 tablet by mouth in the morningaspirin 81 MG EC tablet Take 1 tablet by mouth in the morning. 07/18/2024 Discontinuedatorvastatin 40 mg oral tablet (20 sources)HMG-CoA Reductase InhibitorStart: 49-85-4959oyeh 1 tablet by mouth at bedtimeatorvastatin (Lipitor) 40 MG tablet Indications: 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 [place] heart without angina pectoris Take 1 tablet (40 mg) by mouth at bedtime 90 tablet ActiveStart: 36-94-1520watv 1 tablet by mouth at bedtimeatorvastatin (Lipitor) 40 MG tablet Indications: 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 [place] heart without angina pectoris (CMS/HCC) TAKE 1 TABLET BY MOUTH AT BEDTIME 90 tablet3 07/28/2024 ActiveStart: 22-77-6878eeov 1 tablet by mouth at bedtime atorvastatin (Lipitor) 40 MG tablet Indications: 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 [place] heart without angina pectoris (CMS/HCC) TAKE 1 TABLET BY MOUTH AT BEDTIME 90 tablet3 09/18/2023 Active empagliflozin 25 mg oral tablet (20 sources)Sodium-Glucose Cotransporter 2 InhibitorStart: 19-26-8051pvbz 1 tablet by mouth once dailyempagliflozin (Jardiance) 25 MG Indications: Type 2 diabetes mellitus with hyperglycemia, without long-term current use of insulin ([facility]) Take 1 tablet (25 mg) by mouth Daily 90 tablet 3 10/21/2024 ActiveStart: 09-27-1476cwbk 1 tablet by mouth once dailyJardiance 25 MG Indications: Type 2 diabetes mellitus with hyperglycemia, without long-term currentuse of insulin (CMS/HCC) TAKE 1 TABLET BY MOUTH DAILY 90 tablet 3 07/28/2024 ActiveStart: 06-32-0487eusw 1 tablet by mouth once dailyJardiance 25 MG Indications: Type 2 diabetes mellitus with hyperglycemia, without long-term currentuse of insulin (CMS/HCC) TAKE 1 TABLET BY MOUTH DAILY 90 tablet 3 09/18/2023 Activefolic acid 1 mg / polysaccharide iron complex 150 mg / vitamin b12 0.025 mg oral capsule (1 source)Vitamin Z25Amsqv: 11-30-2023 End: 04-41-7776lran 1 tablet by mouth in the morningPOLY-IRON 150 FORTE 150-25-1 mg-mcg-mg capsule Take 1 tablet by mouth in the morning. 0 11/30/2023 12/30/2023 ActiveglipiZIDE 10 mg oral tablet (20 sources)SulfonylureaStart: 41-24-1055lvys 1 tablet by mouth once daily glipiZIDE (Glucotrol) 10 MG tablet Indications: Type 2 diabetes mellitus with hyperglycemia, without long-term current use of insulin ([facility]) TAKE 1 TABLET BY MOUTH DAILY 90 tablet 3 10/21/2024 ActiveStart: 11-62-9724ogkz 1 tablet by mouth once dailyglipiZIDE (Glucotrol) 10 MG tablet Indications: Type 2 diabetes mellitus with hyperglycemia, without long-term current use of insulin (CMS/HCC) TAKE 1 TABLET BY MOUTH DAILY 90 tablet 3 12/09/2023 Activetake 1 tablet by mouth in the morningglipiZIDE (GLUCOTROL) 10 mg tablet Take 1 tablet (10 mg total) by mouth in the morning. 0 Activelisinopril 20 mg oral tablet (20 sources)Angiotensin Converting Enzyme InhibitorStart: 13-57-3696vall 1 tablet by mouth once dailylisinopril 20 MG tablet Indications: Primary hypertension Take 1 tablet (20 mg) by mouth Daily 90 tablet 3 10/21/2024 Active Start: 53-92-2963itud 1 tablet by mouth once dailylisinopril 20 MG tablet Indications: Primary hypertension (CMS/HCC) TAKE 1 TABLET BY MOUTH DAILY 90 tablet 3 07/28/2024 ActiveStart: 06-36-5481jecs 1 tablet by mouth once daily lisinopril 20 MG tablet Indications: Primary hypertension (CMS/HCC) TAKE 1 TABLET BY MOUTH DAILY 90tablet 3 09/18/2023 ActiveMultiple Vitamins-Minerals (Centrum Silver 50+Men) tablet (17 sources) End: 15-15-0017Flomwafa Vitamins-Minerals (Centrum Silver 50+Men) tablet as directed Orally 01/16/2025 DiscontinuedMultiple Vitamins-Minerals (Centrum Silver 50+Men) tablet as directed Orally ActiveMultiple Vitamins-Minerals (Centrum Silver 50+Men) tablet as directed Orally 0 Active fsewryrn-ikgc-HV-calcium &mins (THERAGRAN-M) 9 mg iron-400 mcg tablet (1 source)ebugzukl-ckoc-IZ-calcium &mins (THERAGRAN-M) 9 mg iron-400 mcg tablet Take 1 tablet by mouth inthe morning. 0 Activeterbinafine 250 mg oral tablet (7 sources)Allylamine AntifungalStart: 09-20-2024 End: 02-48-1900ombm 1 tablet by mouth once dailyterbinafine (LamISIL) 250 MG tablet Indications: Onychomycosis Take 1 tablet (250 mg) by mouth Daily 90 tablet 10/21/2024 01/19/2025 Activevit C/E/zinc ox/ginny/lut/zeax (ICAPS AREDS2 ORAL) (1 source)take 1 tablet by mouth in the morningvit C/E/zinc ox/ginny/lut/zeax (ICAPS AREDS2 ORAL) Take 1 tablet by mouth in the morning. 0 Active Problems Active Problems Problem ClassificationProblemDateDocumented DateEpisodic/ChronicCardiac dysrhythmias (2 sources)Unspecified atrial fibrillation; Translations: [Atrial fibrillation] Onset: 121838-82-4875RjzpeynBjlkndejln disorders (20 sources)Heart block ; Translations: [Conduction disorder, unspecified]Onset: 581106-45-0059LbjyegxDrztdeib atherosclerosis and other heart disease (20 sources)Coronary arteriosclerosis; Translations: [Atherosclerotic heart disease of [place] coronary artery without angina pectoris]Onset: 06-21-2019 Resolved: 571940-02-4441PzmarewEfsmojno mellitus with complications (20 sources)Type 2 diabetes mellitus with hyperglycemia; Translations: [Type 2 diabetes mellitus]Onset: 82-26-3820JbvboyhHqwuwtdh mellitus without complication (2 sources)Type 2 diabetes mellitus without complications; Translations: [Type 2 diabetes mellitus without complication]Onset: hronic Disorders of lipid metabolism (20 sources)Hyperlipidemia, unspecified; Translations: [Mixed hyperlipidemia] Onset: 296578-63-8757PfmklqaHjzoaitsj hypertension (20 sources)Essential (primary) hypertension; Translations: [Benign essential hypertension]Onset: 87-59-3571EuoowkjAoncotxcizypd symptoms and ill-defined conditions (2 sources)Frequency of micturition; Translations: [Increased frequency of urination]Onset: 612293-23-1491TgfykccoJgyd and other crystal arthropathies (20 sources)Gouty arthropathy; Translations: [Gout, unspecified]Onset: 948124-35-2833ElrfzhaWhaeqpj (2 sources)Onychomycosis; Translations: [Tinea unguium]85-89-7327Bupvgnfp Osteoarthritis (20 sources)Osteoarthritis of knee; Translations: [Osteoarthritis of knee, unspecified]Onset: 826910-86-6994IulhqsyXjbtb aftercare (1 source)Other fci (current) drug therapy; Translations: [OTH MCC CURRENT DRUG THERAPY]Onset: 03-82-0531UgjbdgkgIfwdv connective tissue disease (16 sources)Artificial knee joint present; Translations: [Presence of right artificial knee joint]Onset: 597647-20-5651OhzmeuaAjtwz connective tissue disease (2 sources)History of total knee arthroplasty; Translations: [Presence of left artificial knee joint]29-51-0749TvsihvqFchfr connective tissue disease (2 sources)Pain of toes of bilateral feet; Translations: [Pain in right toe(s)] 02-89-4333XsoaijijRitld diseases of veins and lymphatics (2 sources)Venous insufficiency of leg; Translations: [Venous insufficiency (chronic) (peripheral)]92-85-7245IreokelmDshuh liver diseases (12 sources)Non-alcoholic fatty liver; Translations: [Fatty (change of) liver, not elsewhere classified]Onset: 005450-80-0405FyffdxxZiizr liver diseases (9 sources)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; Translations: [Fatty (change of) liver, not elsewhere classified]Onset: 502316-16-3871XazqlofQlluw non-traumatic joint disorders (5 sources)Pain in left knee; Translations: [Pain in joint, lower leg]Onset: 921575-02-6449OwnscxfnBsaeg nutritional; endocrine; and metabolic disorders (16 sources)Body mass index 30+ - obesity; Translations: [Obesity, unspecified] Onset: 270183-22-5902FjfkwgoVzegl skin disorders (2 sources)Dystrophia unguium; Translations: [Nail dystrophy]84-18-6991Kjbopsdu Peripheral and visceral atherosclerosis (20 sources)Peripheral vascular disease; Translations: [Peripheral vascular disease, unspecified]Onset: 355728-34-5398QwkfmymFawznonjk heart disease (20 sources)Chronic pulmonary embolism; Translations: [Chronic pulmonary embolism]Onset: 586799-73-4866MuxlodkEkqtrtuim and history of mental health and substance abuse codes (2 sources)Personal history of nicotine dependence; Translations: [Ex-smoker] Onset: 452340-78-3681RhovdbakPontogechqms (1 source)left knee degenerative joint diseaseOnset: 12-29-2023 Past or Other Problems Problem ClassificationProblemDateDocumented DateEpisodic/ChronicConditions associated with dizziness or vertigo (20 sources)Benign paroxysmal positional vertigo; Translations: [Benign paroxysmal vertigo, unspecified ear]Onset: 844889-64-8485AozmjvuhLkevbubx atherosclerosis and other heart disease (20 sources)Presence of coronary angioplasty implant and graft; Translations: [Percutaneous transluminal coronary angioplasty status]Onset: 02-04-2023 74-23-5928JkrurqhhFkes disorders (14 sources)Mood disordersOnset: Other aftercare (16 sources)Long-term current use of drug therapy; Translations: [Other fci (current) drug therapy]Onset: 555940-44-6359IadjmqxcFowkv screening for suspected conditions (not mental disorders or infectious disease) (19 sources)Encounter for screening for malignant neoplasm of prostate; Translations: [Patient encounter status]Onset: 088573-63-7911Btzpdcux Pulmonary heart disease (20 sources)H/O: pulmonary embolus; Translations: [Personal history of pulmonary embolism]Onset: 158895-33-8934Uneizaiw Results Test NameValueInterpretationReference RangeFacilityXR Knee - left 1 or 2 Viewson 74-82-9619Aaslzwj Result: AP and Lateral of left knee: Surgical position and alignment of prosthetic components without evidence of loosening or wear to femora, tibial or patellar components, The alignment appears to be anatomic. No evidence of accelerated or asymmetric wear to tibial tray or patella button. No evidence of fracture or dislocation. Impression: Unremarkable left total knee arthroplastyNOSaint Joseph Hospital West HealthcareRadiology Study observation (narrative)[facility]36on 01-17-2025 36GeMD Courtney Leon MA Blood testing was ok, follow up as planned. LVM 01/17/[address] Chavez's messageNormalUniversity of [facility]hill Hospital MICROALB CREAT RATIO RANDOMon 16-68-8143ZMLUXCVWKB URINE ZSPNJI42.43 mg/dL20.00 - 300.00 mg/dLNOFulton State HospitalMICROALBUM CREATININE RATIO UR25.2 mg/g0.0 - 29.9 mg/gNOMS HealthcareComment on above:NO MICROALBUMINURIA 0-29 MG/G CLINICAL MICROALBUMINURIA 30-300 MG/G MACROALBUMINURIA >300 MG/G MICROALBUMIN URINE RANDOM1.3 mg/dLNINF - 30.0 mg/dLNOME HealthcareCLINISYNCNCOMANCHE COUNTY MEMORIAL [facility] HealthcareALL CBC WITH AUTO DIFFon 91-28-0291SMOCPIGHF ABSOLUTE HDAF8RDBR HealthcareBasophils/100 WBC (Bld)0.6 %0.2 - 2.0 %NOMS HealthcareEosinophils/100 WBC (Bld)2.1 %0.9 - 7.0 %NOMS HealthcareErythrocyte distribution width (RBC) [Ratio]14 %11.0 - 15.0 %NOMS HealthcareHematocrit (Bld) [Volume fraction]49.4 % 42.0 - 54.0 %NOMS HealthcareHemoglobin (Bld) [Mass/Vol]16.1 g/dL14.0 - 18.0 g/dL NOMS HealthcareIMMATURE GRANULOCYTES ABS AUTO0.02NOMS HealthcareImmature granulocytes/100 WBC (Bld)0.3 %0.0 - 0.5 %NOM HealthcareInterpretation and review of laboratory resultsAbnormalNOME HealthcareLYMPHOCYTES ABSOLUTE AUTO1.2 NOMS HealthcareLymphocytes/100 WBC (Bld)17.2 %Low20.5 - 60.0 %NOMTenet St. LouisH (RBC) [Entitic mass]30.3 pg25.9 - 34.0 pgNOSoutheast Missouri Community Treatment CenterHC (RBC) [Mass/Vol] 32.6 g/dL29.9 - 35.2 g/dLCoxHealthV (RBC) [Entitic vol]93 fL80.0 - 94.0 fLNOFulton State HospitalMONOCYTES ABSOLUTE AUTO0.6NOMS HealthcareMonocytes/100 WBC (Bld)9.4 %1.7 - 12.0 %[facility] HealthcareNEUTROPHILS ABSOLUTE AUTO4.7NOME Healthcare Neutrophils/100 WBC (Bld)70.4 %43.0 - 75.0 %NOMS HealthcarePlatelet mean volume (Bld) [Entitic vol]9.7 fL9.5 - 13.5 fLNOME HealthcareTBH EO #0.1N[facility]S Healthcare TBH GLB068LxyHCRN HealthcareTBH RBC5.31NOMS HealthcareTBH WBC6.7[facility] Healthcare CLINISYNCNOME HealthcareOffice Visiton 02-05-2676Gslkcq-up [id number] Serge Shine 1945 M Date Provider Department Center 12/30/2024 [facility]-WILLIE CHAVEZ [facility] Family History Problem Relation Age of Onset No Known Problems Mother Cancer Father Cancer Brother Family Status - Relation Status Age at Mother Father Sister Alive Brother Level of Service:24231 [place] OFFICE/OUTPATIENT ESTABLISHED MOD MDM 30 [facility] HospitalMLR HEMOGLOBIN A1Con 46-74-0404Ffggkss [Mass/Vol]134 mg/dLWestern Missouri Medical CenterHbA1c (Bld) [Mass fraction]6.3 %High4.5 - 6.2 %[facility] HealthcareComment on above:ADA RECOMMENDED LIMIT 4.0 - 6.0 ADA THERAPEUTIC TARGET < 7.0 ACTION SUGGESTED > 7.0 Interpretation and review of laboratory resultsAbMunson Healthcare Otsego Memorial HospitalCLINISYNC [facility] HealthcareCA ECHO DOPPLER COMPLETEon 60-08-9582Szy[place], [place] [address] Cardiology Report Signed Patient: SERGE SHINE MR#: [id number] : 1945 Acct:[id number] Age/Sex: 78 / M ADM Date: 02/29/24 Loc: JASON Attending Dr: WILLIE CHAVEZ Ordering Physician: WILLIE CHAVEZ Date of Service: 02/29/24 Procedure(s): CA echo doppler complete Accession Number(s): [id number] cc: WILLIE CHAVEZ; Benedict Vallecillo M.D. Patient Name: SERGE SHINE MR#: [id number] : 1945 Exam Date: 02/29/2024 Ordering Doctor: DR WILLIE CHAVEZ M.D. ECHOCARDIOGRAM REPORT PROCEDURE: CA ECHO DOPPLER COMPLETE INDICATIONS: CAD evaluation, h/o pulmonary embolism, hypertension, diabetes COMPARISON: None. DESCRIPTION: COMPLETE ECHOCARDIOGRAM Real-time transthoracic echocardiography with 2D, M-mode, spectral and color flow Doppler performed. QUALITY: Technical quality was good. 72 , 224#, BP 118/68 LEFT VENTRICLE: Normal chamber size. Proximal septal hypertrophy (sigmoid septum). Normal systolic function. LV EF: Normal left ventricular ejection fraction, (>55%). DIASTOLIC: Diastolic function is indeterminate. ATRIAL SEPTUM: Visually appears intact. LEFT ATRIUM: Mild dilatation. RIGHT ATRIUM: Mild dilatation. RIGHT VENTRICLE: Normal chamber size. Normal right ventricular systolic function. TRICUSPID VALVE: Normal mobility and thickness. No stenosis with no regurgitation. MITRAL VALVE: Mildly thickened with normal mobility. No evidence of mitral valve stenosis. Mild mitral annular calcification. No mitral regurgitation. AORTIC VALVE: Normal trileaflet appearance. Mildly calcified aortic valve. Mildly diminished mobility. No evidence of aortic valve stenosis. No aortic regurgitation. AORTIC ROOT: Normal diameter and appearance. Ascending aorta is normal in size. PULMONIC VALVE: Normal thickness and mobility. [...] at 18:15 Dictated By: WILLIE CHAVEZ Signed By: 02/29/24 [id number] (more content not included)...TBHRadiology, Radiologist, MD - 02/29/2024 [place] [address] Cardiology Report Signed Patient: SERGE SHINE MR#: [id number] : 1945 Acct:[id number] Age/Sex: 78 / M ADM Date: 02/29/24 Loc: CARD Attending Dr: WILLIE CHAVEZ Ordering Physician: WILLIE CHAVEZ Date of Service: 02/29/24 Procedure(s): CA echo doppler complete Accession Number(s): [id number] cc: WILLIE CHAVEZ; Benedict Vallecillo M.D. Patient Name: SERGE SHINE MR#: [id number] : 1945 Exam Date: 02/29/2024 Ordering Doctor: DR WILLIE CHAVEZ M.D. ECHOCARDIOGRAM REPORT PROCEDURE: CA ECHO DOPPLER COMPLETE INDICATIONS: CAD evaluation, h/o pulmonary embolism, hypertension, diabetes COMPARISON: None. DESCRIPTION: COMPLETE ECHOCARDIOGRAM Real-time transthoracic echocardiography with 2D, M-mode, spectral and color flow Doppler performed. QUALITY: Technical quality was good. 72 , 224#, BP 118/68 LEFT VENTRICLE: Normal chamber size. Proximal septal hypertrophy (sigmoid septum). Normal systolic function. LV EF: Normal left ventricular ejection fraction, (>55%). DIASTOLIC: Diastolic function is indeterminate. ATRIAL SEPTUM: Visually appears intact. LEFT ATRIUM: Mild dilatation. RIGHT ATRIUM: Mild dilatation. RIGHT VENTRICLE: Normal chamber size. Normal right ventricular systolic function. TRICUSPID VALVE: Normal mobility and thickness. No stenosis with no regurgitation. MITRAL VALVE: Mildly thickened with normal mobility. No evidence of mitral valve stenosis. Mild mitral annular calcification. No mitral regurgitation. AORTIC VALVE: Normal trileaflet appearance. Mildly calcified aortic valve. Mildly diminished mobility. No evidence of aortic valve stenosis. No aortic regurgitation. AORTIC ROOT: Normal diameter and appearance. Ascending aorta is normal in size. PULMONIC VALVE: Normal thickness and mobility. [...] at 18:15 Dictated By: WILLIE CHAVEZ Signed By: 02/29/241816 DD/ 14 TD/TT: Paper Roller: [facility] HealthcareRadiology Study observation (narrative)[facility] CenterCA ECHO DOPPLER COMPLETEOrdered By: Radiologist Radiology on 63-91-4661ME[facility] Healthcare Work Phone: Office Visiton [phone]-up [id number] Serge Shine 1945 M Date Provider Department [facility] Family History Problem Relation Age of Onset No Known Problems Mother No Known Problems Father Family Status - Relation Status Age at Mother Father Level of Service:23552 [place] OFFICE/OUTPATIENT ESTABLISHED LOW MDM 20 [facility] HospitalGlucose Glucometer (BldC) [Mass/Vol]on 77-50-1070Grinyxb [Mass/Vol]152 mg/vYIaqn66-39LpbVzdujyCrystal Clinic Orthopedic CenterXR KNEE LT 1 OR 2 VWSon 32-56-9175PE KNEE LT 1 OR 2 VWSXR KNEE LT 1 OR 2 VWS XR KNEE LT 1 OR 2 VWS HISTORY: Knee replacement. COMPARISON: None. IMPRESSION: 1. Knee prosthesis, joint effusion, swelling, no complication Finalized by Mark Toribio MD on 12/29/2023 11:36 AMNormalCrystal Clinic Orthopedic CenterBacteria identified Cx Nom (U)on 97-58-2873Rqtseuf comment (Unsp spec) [Interp]NO GROWTH AT <1000 CFU/mLAllegheny Valley Hospital CBC AND AUTO DIFFon 64-54-2584WFQUDDDZ BASOPHIL0.0 X10E9/LNormal0.0-0.2PMary Rutan HospitalComment on above:Performed By: #### CBCA, CMP #### [facility] ([id number]) [address] [place], [place] [address]YIYPWJTC NEUTROPHIL4.7 X10E9/LNormal1.5-6.6Crystal Clinic Orthopedic CenterComment on above:Performed By: #### CBCA, CMP #### [facility] ([id number]) [address] [place], [place] [address]Mzstifzfs/100 WBC (Bld)0.5 %[facility] Comment on above:Performed By: #### CBCA, CMP #### [facility] ([id number]) [address] [place], [place] [address]Uptrdrizbwq (Bld) [#/Vol]0.1 10*3/uLNormal0.0-0.4C[facility] Clinic Orthopedic CenterComment on above:Performed By: #### CBCA, CMP #### [facility] ([id number]) [address] [place], [place] [address]Ubhwzzcdize/100 WBC (Bld)1.8 %[facility] Comment on above:Performed By: #### CBCA, CMP #### [facility] ([id number]) [address] [place], [place] [address]Jinjchfjxft distribution width (RBC) [Ratio]14.3 %Normal 11.5-15.0Crystal Clinic Orthopedic CenterComment on above:Performed By: #### CBCA, CMP #### [facility] ([id number]) [address], [address] [place] [address]Trlnswpdjg (Bld) [Volume fraction]47.0 %Yconpb39-26AthGbdcfzTexas Vista Medical CenterComment on above:Performed By: #### CBCA, CMP #### [facility] ([id number]) [address], [address] [place], [place] [address]Wuhyfsydkp (Bld) [Mass/Vol]15.9 g/dYWgavso45.0-17.0C[facility] Clinic Orthopedic CenterComment on above:Performed By: #### CBCA, CMP #### [facility] ([id number]) [address] [place], [place] [address]Gmwjlpdpgps (Bld) [#/Vol]1.4 10*3/uLNormal1.0-3.5PMary Rutan HospitalComment on above:Performed By: #### CBCA, CMP #### [facility] ([id number]) [address], [address] [place], [place] [address]Skktjubsmdu/100 WBC (Bld)20.5 %NormalCrystal Clinic Orthopedic Center Comment on above:Performed By: #### CBCA, CMP #### [facility] ([id number]) [address] [place], [place] [address]VFO (RBC) [Entitic mass]31.1 koFdwhrf16-94RnmDolwyjTexas Vista Medical CenterComment on above:Performed By: #### CBCA, CMP #### [facility] ([id number]) [address], [address] [place], [place] [address]DDHE (RBC) [Mass/Vol]33.9 g/wBJprcgj89-89YpnDoltep Fordland HospitalComment on above:Performed By: #### CBCA, CMP #### [facility] ([id number]) [address], [address] [place], [place] [address]EXP (RBC) [Entitic vol]92 hQEoqpmr13-219MieRjzdzaCrystal Clinic Orthopedic CenterComment on above:Performed By: #### CBCA, CMP #### [facility] ([id number]) [address], [address] [place], [place] [address]Psnusjdeo (Bld) [#/Vol]0.7 10*3/uLNormal0-0.9C[facility] Clinic Orthopedic CenterComment on above:Performed By: #### CBCA, CMP #### [facility] ([id number]) [address], [address] [place], [place] [address]Yctsbwdmh/100 WBC (Bld)9.7 %NormalCrystal Clinic Orthopedic Center Comment on above:Performed By: #### CBCA, CMP #### [facility] ([id number]) [address], [address] [place], [place] [address]Hpaxqrwbckc/100 WBC (Bld)67.5 %[facility] Comment on above:Performed By: #### CBCA, CMP #### [facility] ([id number]) [address], [address] [place], [place] [address]Eldlyfsp mean volume (Bld) [Entitic vol]8.4 fLNormal7-12 [facility] Orthopedic CenterComment on above:Performed By: #### CBCA, CMP #### [facility] ([id number]) [address], [address] [place], [place] [address]Boplcjaet (Bld) [#/Vol]155 10*3/dKKcfabv848-509JetNhubqr Fremont HospitalComment on above:Performed By: #### CBCA, CMP #### [facility] ([id number]) [address], [address] [place], [place] [address]RHZ COUNT5.12 X10E12/LNormal4.10-5.70[facility] Comment on above:Performed By: #### CBCA, CMP #### [facility] ([id number]) [address], [address] [place], [place] [address]EZR (Bld) [#/Vol]7.0 10*3/uLNormal4.0-11.0C[facility] Clinic Orthopedic CenterComment on above:Performed By: #### CBCA, CMP #### [facility] ([id number]) [address], [address] [place], [place] [address]JUD auto differentialon 29-68-2617Xpltiyays (Bld) [#/Vol]0.0 10*3/uLTriHealth McCullough-Hyde Memorial Hospital SystemBasophils/100 WBC (Bld)0.5 %[facility] SystemEosinophils (Bld) [#/Vol]0.1 10*3/uLTriHealth McCullough-Hyde Memorial Hospital SystemEosinophils/100 WBC (Bld)1.8 %[facility] SystemErythrocyte distribution width (RBC) [Ratio]14.3 %11.5 - 15.0 %[facility] SystemHematocrit (Bld) [Volume fraction]47.0 %39 - 49 %[facility] HospitalHemoglobin (Bld) [Mass/Vol]15.9 g/dL13.0 - 17.0 g/dLGood Samaritan HospitalLymphocytes (Bld) [#/Vol]1.4 10*3/uL [facility] SystemLymphocytes/100 WBC (Bld)20.5 %[facility] HospitalMCH (RBC) [Entitic mass]31.1 pg27 - 34 pgPMiddletown HospitalMCHC (RBC) [Mass/Vol]33.9 g/dL32 - 36 g/dLGood Samaritan HospitalMCV (RBC) [Entitic vol]92 fL80 - 100 [facility]- FultonMonocytes (Bld) [#/Vol]0.7 10*3/uLOhio State Health Systemca Health SystemMonocytes/100 WBC (Bld)9.7 %[facility]itan HospitalNeutrophils (Bld) [#/Vol]4.7 10*3/[facility]Laren Thumb RegionNeutrophils/100 WBC (Bld)67.5 % [facility] SystemPlatelet mean volume (Bld) [Entitic vol]8.4 fL7 - 12 fL [facility] SystemPlatelets (Bld) [#/Vol]155 10*3/[facility] RBC (Bld) [#/Vol]5.12 10*6/[facility] RegionWBC corrected for nucl RBC Auto (Bld) [#/Vol]7.0Allegheny Valley HospitalCOMPREHENSIVE METABOLIC PANELon 35-82-3832Wmipqku [Mass/Vol]4.2 g/dLNormal3.2-5.3PMary Rutan HospitalComment on above:Performed By: #### CBCA, CMP #### [facility] ([id number]) [address], [address] [place], [place] [address]KFK [Catalytic activity/Vol]103 U/KZmzkxb12-000HkzHuyrfpCrystal Clinic Orthopedic CenterComment on above:Performed By: #### CBCA, CMP #### [facility] ([id number]) [address], [address] [place], [place] [address]DNP [Catalytic activity/Vol]30 U/LNormal0-40[facility] Orthopedic CenterComment on above:Performed By: #### CBCA, CMP #### [facility] ([id number]) [address], [address] [place], [place] [address]Vvyyy gap [Moles/Vol]12 mmol/LNormal5-15[facility] Orthopedic CenterComment on above:Performed By: #### CBCA, CMP #### [facility] ([id number]) [address], [address] [place], [place] [address]QUU [Catalytic activity/Vol]28 U/LNormal0-41C[facility] Orthopedic CenterComment on above:Performed By: #### CBCA, CMP #### [facility] ([id number]) [address], [address] [place], [place] [address]Fnwkqmajg [Mass/Vol]0.7 mg/dLNormal0.3-1.2PMary Rutan HospitalComment on above:Performed By: #### CBCA, CMP #### [facility] ([id number]) [address], [address] [place], [place] [address]Nznbmlp [Mass/Vol]9.9 mg/dLNormal8.5-10.5PMary Rutan HospitalComment on above:Performed By: #### CBCA, CMP #### [facility] ([id number]) [address], [address] [place], [place] [address]Sihhiqnf [Moles/Vol]106 mmol/NXmasta92-093TtaSvgxyaTexas Vista Medical CenterComment on above:Performed By: #### CBCA, CMP #### [facility] ([id number]) [address], [address] [place], [place] [address]DQ0 [Moles/Vol]27 mmol/NGnyqfh82-07DjiYnnlccMary Rutan Hospital Comment on above:Performed By: #### CBCA, CMP #### [facility] ([id number]) [address], [address] [place], [place] [address]Vrkikhrmng [Mass/Vol]1.15 mg/dLNormal0.60-1.30ProTexas Vista Medical CenterComment on above:Result Comment: METHOD TRACEABLE TO IDMS STANDARD Performed By: #### CBCA, CMP #### [facility] ([id number]) [address], [address] [place], [place] [address]VRD/1.73 sq M.predicted among non-blacks MDRD (S/P/Bld) [Vol rate/Area]66 mL/min/{1.73_m2}Normal>59ProTexas Vista Medical CenterComment on above:Result Comment: Reported eGFR is based on the CKD-EPI 2020 equation that does not use a race coefficient.Performed By: #### CHASE, CMP #### [facility] ([id number]) [address], [address] [place], [place] [address]Sgnjjqh [Mass/Vol]94 mg/yLQbgmfc51-60JulMbvcfhCrystal Clinic Orthopedic Center Comment on above:Performed By: #### CHASE, CMP #### [facility] ([id number]) [address] [place], [place] [address]Mxgugyash [Moles/Vol]4.3 mmol/LNormal3.5-5.0[facility]opedic CenterComment on above:Performed By: #### CHASE, CMP #### [facility] ([id number]) [address] [facility] [address] [place], [place] [address]Eqsbjoo [Mass/Vol]7.0 g/dLNormal6.0-8.0[facility]opedic CenterComment on above:Performed By: #### CHASE, CMP #### [facility] ([id number]) [address], [address] [place], [place] [address]Pewcdg [Moles/Vol]145 mmol/BBdpdkk683-917VgySbwjbv Fremont HospitalComment on above:Performed By: #### CHASE, CMP #### [facility] ([id number]) [address], [address] [place], [place] [address]Gsxi nitrogen [Mass/Vol]26 mg/dLNormal5-27ProTexas Vista Medical CenterComment on above:Performed By: #### CHASE, CMP #### [facility] ([id number]) [address], [address] [place], [place] [address]Jsgqugbwhkhxp metabolic panelon 73-97-9147Xtgmvpm [Mass/Vol]4.2 g/dL3.2 - 5.3 g/dLTriHealth McCullough-Hyde Memorial Hospital SystemALP [Catalytic activity/Vol]103 U/L39 - 130 U/LPrAdventHealth Castle Rock Health SystemALT No additional P-5'-P [Catalytic activity/Vol] 30 U/L0 - 40 U/LPrCooper County Memorial Hospitalica Health SystemAnion gap [Moles/Vol]12 mmol/L5 - 15 mmol/LPrCooper County Memorial Hospitalica Health SystemAST [Catalytic activity/Vol]28 U/L0 - 41 U/L [facility] HospitalBilirubin [Mass/Vol]0.7 mg/dL0.3 - 1.2 mg/dLProSycamore Medical Center SystemCalcium [Mass/Vol]9.9 mg/dL8.5 - 10.5 mg/dLTriHealth McCullough-Hyde Memorial Hospital System Chloride [Moles/Vol]106 mmol/L98 - 109 mmol/[facility] Health SystemCO2 [Moles/Vol]27 mmol/L22 - 32 mmol/[facility] SystemCreatinine [Mass/Vol] 1.15 mg/dL0.60 - 1.30 mg/dLGood Samaritan HospitalComment on above:METHOD TRACEABLE TO IDME STANDARDeGFR (CKD-EPI)non-race vhbvjoibb64- [facility] HospitalComment on above: Reported eGFR is based on the CKD-EPI 2020 equation that does not use a race coefficient. Glucose [Mass/Vol]94 mg/dL65 - 99 mg/dLTriHealth McCullough-Hyde Memorial Hospital SystemPotassium [Moles/Vol]4.3 mmol/L3.5 - 5.0 mmol/[facility] Health SystemProtein [Mass/Vol] 7.0 g/dL6.0 - 8.0 g/dLTriHealth McCullough-Hyde Memorial Hospital SystemSodium [Moles/Vol]145 mmol/L134 - 146 mmol/[facility] Health SystemUrea nitrogen [Mass/Vol]26 mg/dL5 - 27 mg/dL [facility] HospitalHGB A1C (GLYCO-HGB)on 12-03-2023 Glucose [Mass/Vol]146 mg/dLNoBlanchard Valley Health SystemComment on above: Performed By: #### CBCA, CMP #### [facility] ([id number]) [address] [facility], [address] [place], [place] [address]OjV8w (Bld) [Mass fraction]6.7 %High4.4-5.6C[facility] Clinic Orthopedic CenterComment on above:Result Comment: NOTE ADA Guidelines Result HgbA1c Normal : less than 5.7 % Prediabetes : 5.7 % to 6.4 % Diabetes : > 6.4 % Use with caution in patients with abnormal hemoglobin variants as the half-life of red blood cells and in vivo glycation rates are affected.Performed By: #### CBCA, CMP #### [facility] ([id number]) [address] [place] [address], [address] [place], [place] [address]Hakjyualuz A1con 95-60-6445Xqgrwzb glucose Estimated from glycated hemoglobin (Bld) [Mass/Vol]146 mg/dLGood Samaritan HospitalHbA1c (Bld) [Mass fraction]6.7 %High4.4 - 5.6 %[facility]itan HospitalComment on above:NOTE ADA Guidelines Result HgbA1c Normal : less than 5.7 % Prediabetes : 5.7 % to 6.4 % Diabetes : > 6.4 % Use with caution in patients with abnormal hemoglobin variants as the half-life of red blood cells and in vivo glycation rates are affected. Interpretation and review of laboratory resultsAbBurnett Medical CenterURINALYSISon 63-98-9824Dwytdjuhr Ql (U)NegativeNormalNEG [facility] CenterBLOOD/HGBNegativeNormnmNEGCrystal Clinic Orthopedic Center Color (U)YELLOWNormalYELLOWCrystal Clinic Orthopedic CenterGlucose Ql (U)>1000Abnormal NEGCrystal Clinic Orthopedic CenterKetones Ql (U)NegativeNormalNEGCrystal Clinic Orthopedic CenterLeukocyte esterase Test strip Ql (U)NegativeNormnmNEGCrystal Clinic Orthopedic CenterComkresge eye institute on above:Result Comment: HIGH CONCENTRATIONS OF GLUCOSE MAY DECREASE THE REACTIVITY OF THE DIPSTICK LEUKOCYTE TEST PAD.Nitrite Ql (U) NegativeNormalNEGCrystal Clinic Orthopedic CenterpH (U)6.5 [pH]Normal5.0-8.5PMary Rutan HospitalProtein Ql (U)NegativeNormalNEGCrystal Clinic Orthopedic Center Specific gravity (U) [Rel density]1.335Puxsmz7.003-1.035C[facility] CenterTURBIDITYCLEARNormalCLEARCrystal Clinic Orthopedic CenterUrobilinogen (U) [Mass/Vol]mg/dLNormal<1.1PMary Rutan HospitalURINE CULTUREon 12-03-2023 Bacteria identified Cx Nom (U)CULTURE RESULTS NO GROWTH AT <1000 CFU/mLNormalCrystal Clinic Orthopedic CenterComment on above: Performed By: #### 630-4 #### [facility] ([id number]) [address] [place] [address], [address] [place], [place] [address]Ixzgzsjrbxji 33-41-1310Aqhnyjbkq Ql (U)NegativeNegative^Negative [facility] Health SystemColor (U)YELLOWYELLOW^YELLOWTriHealth McCullough-Hyde Memorial Hospital System Glucose (U) [Mass/Vol]mg/dLAbnormalNegative^Negative mg/dLTriHealth McCullough-Hyde Memorial Hospital SystemHemoglobin Auto test strip Ql (U)NegativeNegative^NegativeTriHealth McCullough-Hyde Memorial Hospital SystemInterpretation and review of laboratory resultsAbnormalAultman Alliance Community Hospital Health SystemKetones (U) [Mass/Vol]NegativeNegative^Negative mg/dLTriHealth McCullough-Hyde Memorial Hospital SystemLeukocyte esterase Auto test strip Ql (U)NegativeNegative^Negative [facility] Hospitaledica Health SystemComment on above:HIGH CONCENTRATIONS OF GLUCOSE MAY DECREASE THE REACTIVITY OF THE DIPSTICK LEUKOCYTE TEST PAD.Nitrite Auto test strip Ql (U)NegativeNegative^NegativeBrattleboro Memorial HospitalMedica Health SystempH (U)6.5 [pH]5.0 - 8.5POhioHealth Riverside Methodist Hospital SystemProtein (U) [Mass/Vol]NegativeNegative^Negative mg/dL [facility] Hospitala Health SystemSpecific gravity Refractometry automated (U) [Rel density]1.0331.003 - 1.035[facility] SystemTurbidity Ql (U)CLEAR CLEAR^CLEARTriHealth McCullough-Hyde Memorial Hospital SystemUrobilinogen Qn (U)NINFPMiddletown Hospital Pro[facility]ica Health SystemXR CHEST 2 VWSon [id number] CHEST 2 VWSXR CHEST 2 VWS CHEST RADIOGRAPH 12/03/2023 9:51 AM CLINICAL INDICATION: Preoperative evaluation, left knee surgery. No current chest complaints. Former smoker. TECHNIQUE: Frontal and lateral views of the chest were obtained. COMPARISON: No prior studies. FINDINGS: Lungs, heart & mediastinum: Cardiomediastinal silhouette appears normal. No pleural effusion orpneumothorax is present. There is no focal pulmonary infiltrate. Other: Evaluation of bony structures shows no displaced fractures, or concerning bone lesions. Relatively mild degenerative changes in the spine. IMPRESSION: 1. No acute cardiopulmonary process Finalized by Ricardo Mackey MD on 12/03/2023 4:17 PMNUC West Chester HospitalXR Chest PA and Lateralon [id number] RADIOGRAPH 12/03/2023 9:51 AM CLINICAL INDICATION: Preoperative evaluation, left knee surgery. No current chest complaints. Former smoker. TECHNIQUE: Frontal and lateral views of the chest were obtained. COMPARISON: No prior studies. FINDINGS: Lungs, heart & mediastinum: Cardiomediastinal silhouette appears normal. No pleural effusion orpneumothorax is present. There is no focal pulmonary infiltrate. Other: Evaluation of bony structures shows no displaced fractures, or concerning bone lesions. Relatively mild degenerative changes in the spine. IMPRESSION: 1. No acute cardiopulmonary process Finalized by Ricardo Mackey MD on 12/03/2023 4:17 PMSECTRAPARicardo Ceja MD - 12/03/2023 CHEST RADIOGRAPH 12/03/2023 9:51 AM CLINICAL INDICATION: Preoperative evaluation, left knee surgery. No current chest complaints. Former smoker. TECHNIQUE: Frontal and lateral views of the chest were obtained. COMPARISON: No prior studies. FINDINGS: Lungs, heart & mediastinum: Cardiomediastinal silhouette appears normal. No pleural effusion orpneumothorax is present. There is no focal pulmonary infiltrate. Other: Evaluation of bony structures shows no displaced fractures, or concerning bone lesions. Relatively mild degenerative changes in the spine. IMPRESSION: 1. No acute cardiopulmonary process Finalized by Ricardo Mackey MD on 12/03/2023 4:17 PM [facility] HospitalRadiology Study observation (narrative)[facility] HospitalXR Chest PA and LateralOrdered By: Ricardo Mackey on [id number] Health System Work Phone: XR Knee - left 1 or 2 Viewson 03-40-2612Masjqsy Result: AP and lateral views of left knee showed severe varus deformity with kork-rv-dyfs articulation to the medial joint line, flattening [...] joint disease left knee with varus deformity [facility] HealthcareRadiology Study observation (narrative)[facility] CenterMLR HEMOGLOBIN A1Con [id number] [Mass/Vol]146 mg/dLWestern Missouri Medical CenterHbA1c (Bld) [Mass fraction]6.7 %High4.5 - 6.2 %[facility] CenterComment on above:ADA RECOMMENDED LIMIT 4.0 - 6.0 ADA THERAPEUTIC TARGET < 7.0 ACTION SUGGESTED > 7.0 Interpretation and review of laboratory resultsAbnormalWestern Missouri Medical CenterCLINISYNC [facility] CenterCBC AUTO DIFFon [id number] #0.0 103/ulNormal0.0-0.1Bethesda North HospitalComment on above:Performed By: #### CBC #### [facility] [address] [address] [address] Demetris AllredBasophils/100 WBC (Bld)0.4 %Normal0.2-2.0The [facility] Comment on above:Performed By: #### CBC #### [facility] [address] [address] [address] Demetris Vela #0.2 103/ulNormal0.0-0.7The [facility] CenterComment on above: Performed By: #### CBC #### [facility] [address] [address] [address] Demetris Malhotraosinophils/100 WBC (Bld)2.2 %Normal0.9-7.0The [facility] Comment on above:Performed By: #### CBC #### [facility] [address] [place] [address] Dr. Demetris Malhotrarythrocyte distribution width (RBC) [Ratio]12.7 %Kjqmkc74.0-15.0 The [facility] CenterComment on above:Performed By: #### CBC #### [facility] [address] [place] [address] Dr. Demetris AllredHematocrit (Bld) [Volume fraction]44.8 %Fhcmoo61.0-54.0The [facility] CenterComment on above:Performed By: #### CBC #### [facility] [address] [place] [address] Dr. Demetris AllredHemoglobin (Bld) [Mass/Vol]15.0 g/cSHcwkst40.0-18.0The [facility] CenterComment on above:Performed By: #### CBC #### [facility] [address] [place] [address] Dr. Demetris Kuo #0.02 10e3/ulNormal0.00-0.03The [facility] CenterComment on above:Performed By: #### CBC #### [facility] [address] [place] [address] Dr. Demetris Kuo %0.3 %Normal0.0-0.5The [facility] CenterComment on above: Performed By: #### CBC #### [facility] [address] [place] [address] Dr. Demetris Zamora #1.6 103/ulNormal1.2-3.8The [facility] CenterComment on above:Performed By: #### CBC #### [facility] [address] [place] [address] Dr. Demetris Arreguinhocytes/100 WBC (Bld)19.9 %Critically low20.5-60.0The [facility] CenterComment on above:Performed By: #### CBC #### [facility] [address] [place] [address] Dr. Demetris SouzaUAL DIFF REQNONormalThe [facility] CenterComment on above: Performed By: #### CBC #### [facility] [address] [place] [address] Dr. Demetris Michel (RBC) [Entitic mass]30.2 ezAqkqze14.9-34.0The [facility] CenterComment on above:Performed By: #### CBC #### [facility] [address] [place] [address] Dr. Demetris Michel (RBC) [Mass/Vol]33.5 g/pLAlqdjh31.9-35.2The Montrose HospitalComment on above:Performed By: #### CBC #### [facility] [address] [place] [address] Dr. Demetris Michel (RBC) [Entitic vol]90.1 jSFecgvs21.0-94.0The [facility] CenterComment on above:Performed By: #### CBC #### [facility] [address] [place] [address] Dr. Demetris Valera #0.6 103/ulNormal0.3-0.8The [facility] CenterComment on above:Performed By: #### CBC #### [facility] [address] [place] [address] Dr. Demetris Dunbarocytes/100 WBC (Bld)8.2 %Normal1.7-12.0The [facility] Comment on above:Performed By: #### CBC #### [facility] [address] [place] [address] Dr. Demetris Mata #5.4 103/ulNormal1.4-6.5The [facility] CenterComment on above:Performed By: #### CBC #### [facility] [address] [place] [address] Dr. Demetris Newellutrophils/100 WBC (Bld)69.0 %Libkyt60.0-75.0The [facility] CenterComment on above:Performed By: #### CBC #### [facility] [address] [place] [address] Dr. Demetris Carsonlet mean volume (Bld) [Entitic vol]9.6 fLNormal9.5-13.5The [facility] CenterComment on above:Performed By: #### CBC #### [facility] [address] [place] [address] Dr. Demetris AllredPLT169 103/qgSmtdxd615-057Mra [facility] CenterComment on above: Performed By: #### CBC #### [facility] [address] [place] [address] Dr. Demetris AllredRBC4.97 106/ulNormal4.70-6.10The [facility] CenterComment on above:Performed By: #### CBC #### [facility] [address] [place] [address] Dr. Demetris AllredWBC7.8 103/ulNormal4.0-11.0The [facility] CenterComment on above: Performed By: #### CBC #### [facility] [address] [place] [address] Dr. Demetris AllredGLYCOHEMOGLOBIN A1Con 70-34-8153RCO RECOMMENDATIONSEE BELOWAvita Health SystemComment on above:Result Comment: ADA RECOMMENDED LIMIT 4.0 - 6.0 ADA THERAPEUTIC TARGET < 7.0 ACTION SUGGESTED > 7.0Performed By: #### A1C #### [facility] [address] [place] [address] Dr. Demetris AllredGlucose [Mass/Vol]206 mg/dLNoUC West Chester HospitalComment on above:Performed By: #### A1C #### [facility] [address] [place] [address] Dr. Demetris AllredHbA1c (Bld) [Mass fraction]8.8 %Critically high4.5-6.2The [facility] CenterComment on above:Performed By: #### A1C #### [facility] [address] [place] [address] Dr. Demetris AllredLIPID PROFILEon 31-37-9288NSXK-HDL RATIO NORMSEE BELOWCincinnati Children's Hospital Medical CenterComment on above:Result Comment: 3.3 - 4.4 LOW RISK 4.4 - 7.1 AVERAGE RISK 7.1 - 11.0 MODERATE RISK >11.0 HIGH RISKPerformed By: #### LIVER, LIPID, BMP #### [facility] [address] [place] [address] Dr. Demetris AllredCholesterol [Mass/Vol]137 mg/dLNormal<=200[facility] Comment on above:Performed By: #### LIVER, LIPID, BMP #### [facility] [address] [place] [address] Dr. Demetris AllredCholesterol in HDL [Mass/Vol]35 mg/dLCritically vnd85-30FpbBethesda North HospitalComment on above:Performed By: #### LIVER, LIPID, BMP #### [facility] [address] [place] [address] Dr. Demetris AllredCholesterol in LDL [Mass/Vol]24.2 mg/dLNoUC West Chester HospitalComment on above:Performed By: #### LIVER, LIPID, BMP #### [facility] [address] [place] [address] Dr. Demetris Barnhartesterradha.total/Cholesterol in HDL [Mass ratio]3.9 {ratio} NormalBethesda North HospitalComment on above:Performed By: #### LIVER, LIPID, BMP #### [facility] [address] [place] [address] Dr. Demetris AllredHDErrol NORMAL> or = 60 mg/dl - LOW CARDIOVASCULAR RISK <40 mg/dl - HIGH CARDIOVASCULAR RISKCincinnati Children's Hospital Medical CenterComment on above:Performed By: #### LIVER, LIPID, BMP #### [facility] [address] [place] [address] Dr. Demetris AllredLDL CALC NORMALSEE BELOWCincinnati Children's Hospital Medical CenterComment on above:Result Comment: <100 mg/dl OPTIMAL 100 - 129 mg/dl NEAR OR ABOVE OPTIMAL 130 - 159 mg/dl BORDERLINE HIGH 160 - 189 mg/dl HIGH >190 mg/dl VERY HIGH Performed By: #### LIVER, LIPID, BMP #### [facility] [address] [place] [address] Dr. Demetris AllredTriglyceride [Mass/Vol]389 mg/dLCritically high<=150The [facility] CenterComment on above:Performed By: #### LIVER, LIPID, BMP #### [facility] [address] [place] [address] Dr. Demetris VillalbaLDL CALC77.8 mg/dLNormalThe [facility] CenterComment on above: Performed By: #### LIVER, LIPID, BMP #### [facility] [address] [place], [place] [address] Dr. Demetris Lawrence PROFILEon 06-71-7171Tdfmldt [Mass/Vol]3.7 g/dLNormal3.4-5.0 The [facility] CenterComment on above:Performed By: #### LIVER, LIPID, BMP #### [facility] [address] [place] [address] Dr. Demetris AllredAlbumin/Globulin [Mass ratio]0.9 {ratio}NormalThe [facility] CenterComment on above:Performed By: #### LIVER, LIPID, BMP #### [facility] [address] [place] [address] Dr. Demetris Barros [Catalytic activity/Vol]133 U/LCritically kcne83-237Ssp [facility] CenterComment on above:Performed By: #### LIVER, LIPID, BMP #### [facility] [address] [place] [address] Dr. Demetris Crooks [Catalytic activity/Vol]49 U/CRvkzxf39-55Emo [facility] CenterComment on above:Performed By: #### LIVER, LIPID, BMP #### [facility] [address] [place] [address] Dr. Demteris Warren [Catalytic activity/Vol]31 U/HEnjulc87-16Rwk [facility] Memorialment on above:Performed By: #### LIVER, LIPID, BMP #### [facility] [address] [place] [address] Dr. Demetris Leblanc, CONJUGATED0.2 mg/dLNormal0.0-0.2The [facility] Comment on above:Performed By: #### LIVER, LIPID, BMP #### [facility] [address] [address] [address] Demetris AllredBilirubin [Mass/Vol]1.0 mg/dLNormal0.2-1.0The [facility] Comment on above:Performed By: #### LIVER, LIPID, BMP #### [facility] [address] [address] [address] Demetris AllredGlobulin (S) [Mass/Vol]4.1 g/dLNormalThe [facility] CenterComment on above:Performed By: #### LIVER, LIPID, BMP #### [facility] [address] [address] [address] Demetris AllredProtein [Mass/Vol]7.8 g/dLNormal6.4-8.2The [facility] Comment on above:Performed By: #### LIVER, LIPID, BMP #### [facility] [address] [place] [address] Dr. Demetris MacROALBUMIN, RAND URon 63-66-1633jSGC3.7 mg/LNormal<=30.0The [facility] CenterComment on above:Performed By: #### MALBR #### [facility] [address] [place] [address] Dr. Demetris AllredPROF CHEM 8 (BAS METB)on 30-93-4149Jhpzw gap [Moles/Vol]12.4 mmol/LNormalThe [facility] CenterComment on above:Performed By: #### LIVER, LIPID, BMP #### [facility] [address] [place] [address] Dr. Demetris AllredCalcium [Mass/Vol]9.5 mg/dLNormal8.5-10.1The [facility] Comment on above:Performed By: #### LIVER, LIPID, BMP #### [facility] [address] [place] [address] Dr. Demetris AllredChloride [Moles/Vol]101 mmol/SInxydb74-006Sky [facility] Comment on above:Performed By: #### LIVER, LIPID, BMP #### [facility] [address] [place] [address] Dr. Demetris AllredCO2 [Moles/Vol]28.9 mmol/QQswtbs62.0-32.0[facility] Comment on above:Performed By: #### LIVER, LIPID, BMP #### [facility] [address] [place] [address] Dr. Demetris AllredCreatinine [Mass/Vol]0.81 mg/dLNormal0.70-1.30The [facility] CenterComment on above:Performed By: #### LIVER, LIPID, BMP #### [facility] [address] [place] [address] Dr. Willson ChangEGFR-AF MONEGASQUE>60Normal>=60The [facility] CenterComment on above:Performed By: #### LIVER, LIPID, BMP #### [facility] [address] [place] [address] Dr. Demetris MalhotraGFR-NON AF MONEGASQUE>60Normal>=60The [facility] CenterComment on above:Performed By: #### LIVER, LIPID, BMP #### [facility] [address] [place] [address] Dr. Demetris AllredGlucose [Mass/Vol]252 mg/dLCritically jhbc88-729Nnh [facility] CenterComment on above:Performed By: #### LIVER, LIPID, BMP #### [facility] [address] [place] [address] Dr. Demetris AllredPotassium [Moles/Vol]4.3 mmol/LNormal3.5-5.1[facility] Comment on above:Performed By: #### LIVER, LIPID, BMP #### [facility] [address] [place] [address] Dr. Demetris AllredSodium [Moles/Vol]138 mmol/MKqseeq386-884UtnBet[facility] Comment on above:Performed By: #### LIVER, LIPID, BMP #### [facility] [address] [place] [address] Dr. Demetris AllredUrea nitrogen [Mass/Vol]16.0 mg/dLNormal7.0-18.0The [facility] CenterComment on above:Performed By: #### LIVER, LIPID, BMP #### [facility] [address] [address] [address] Demetris AllredUrea nitrogen/Creatinine [Mass ratio]19.8 mg/mgNoUC [facility] Chester HospitalComment on above:Performed By: #### LIVER, LIPID, BMP #### [facility] [address] [address] [address] Demetris AllredGLYCOHEMOGLOBIN A1Con 88-07-4477NJS RECOMMENDATIONSEE BELOWNormal The [facility] CenterComment on above:Result Comment: ADA RECOMMENDED LIMIT 4.0 - 6.0 ADA THERAPEUTIC TARGET < 7.0 ACTION SUGGESTED > 7.0Performed By: #### A1C #### [facility] [address] [address] [address] Demetris AllredGlucose [Mass/Vol]174 mg/dLNoUC [facility] Chester HospitalComment on above:Performed By: #### A1C #### [facility] [address] [address] [address] Demetris AllredHbA1c (Bld) [Mass fraction]7.7 %Critically high4.5-6.2The [facility] CenterComment on above:Performed By: #### A1C #### [facility] [address] [address] [address] Demetris Santos GLUCOSE LABon 17-29-4220Vdhtika [Mass/Vol]174 mg/jPIajd07-320 The [facility] CenterComment on above:Performed By: #### 10868, 50545, 06615, 68836 #### [facility] [address] [facility] [place] [address], USAGlucose [Mass/Vol]147 mg/sHQwuv95-282Hny [facility] CenterComment on above:Performed By: #### 50421, 17136, 41049, 49111 #### [facility] [address] [place] [address], USAUFH HEPARIN ASSAYon 76-07-7824UVMSHVUWHGFDMJ HEPARIN0.47 IU/mLNormal0.30-0.70The [facility] CenterComment on above: Result Comment: Rivaroxaban and Apixaban will interfere with the anti Xa assay used to monitor UFH and LMWH.Performed By: #### 50354, 91966, 23429, 90442 #### [facility] [address] [place] [address], USABASIC METABOLIC PANELon 80-63-5403Pztqkeg [Mass/Vol]8.4 mg/dLLow8.6-10.3The [facility] CenterComment on above:Order Comment: No: Do not add to previous drawPerformed By: #### 22920, 91588, 36291, 69016 #### [facility] [address] [place] [address], USAChloride [Moles/Vol]102 mmol/YFxfbot97-711Jcg [facility] CenterComment on above:Order Comment: No: Do not add to previous drawPerformed By: #### 89394, 12894, 70804, 25824 #### [facility] [address] [place] [address], USACO2 [Moles/Vol]25 mmol/GQvehsg42-46Lvq [facility] CenterComment on above:Order Comment: No: Do not add to previous draw Performed By: #### 54846, 36950, 52602, 51821 #### [facility] [address] [place] [address], USACreatinine [Mass/Vol]0.95 mg/dLNormal0.70-1.30The [facility] CenterComment on above:Order Comment: No: Do not add to previous drawPerformed By: #### 33467, 09487, 29324, 07622 #### [facility] [address] [place] [address], USAGFR/1.73 sq M predicted among blacks MDRD (S/P/Bld) [Vol rate/Area]mL/min/{1.73_m2}Normal>60The [facility] Comment on above:Order Comment: No: Do not add to previous drawResult Comment: Calculation may not be valid for patients over 70 yearsPerformed By: #### 42722, 30514, 72477, 88561 #### [facility] [address] [place] [address], USAGFR/1.73 sq M predicted among non-blacks MDRD (S/P/Bld) [Vol rate/Area]mL/min/{1.73_m2}Normal>60The [facility] Comment on above:Order Comment: No: Do not add to previous drawResult Comment: Calculation may not be valid for patients over 70 yearsPerformed By: #### 36072, 29261, 86228, 09217 #### [facility] [address] [place] [address], USAGlucose [Mass/Vol]181 mg/jSLwdm40-421Bgt [facility] CenterComment on above:Order Comment: No: Do not add to previous drawPerformed By: #### 29996, 58665, 50380, 09309 #### [facility] [address] [place] [address], USAPotassium [Moles/Vol]3.8 mmol/LNormal3.5-5.1The [facility] CenterComment on above:Order Comment: No: Do not add to previous drawPerformed By: #### 23165, 56554, 87055, 45182 #### [facility] [address] [place] [address], USASodium [Moles/Vol]133 mmol/YWpu483-902Wpj [facility] CenterComment on above:Order Comment: No: Do not add to previous drawPerformed By: #### 07337, 12183, 34962, 65937 #### [facility] [address] [place] [address], USAUrea nitrogen [Mass/Vol]19 mg/dLNormal7-25The [facility] CenterComment on above:Order Comment: No: Do not add to previous drawPerformed By: #### 61975, 43337, 89114, 54044 #### [facility] [address] [place] [address], USACBC COMPLETE BLOOD COUNTon 90-94-0254Bjvatidhfzl distribution width (RBC) [Ratio]14.3 %Kfoxzs19.5-15.0The [facility] CenterComment on above:Order Comment: No: Do not add to previous draw Performed By: #### 88645, 15382, 96056, 24210 #### [facility] [address] [place] [address], USAHematocrit (Bld) [Volume fraction]39.1 %Zdkrvi55.0-50.0The [facility] CenterComment on above:Order Comment: No: Do not add to previous drawPerformed By: #### 61778, 45907, 94675, 25382 #### [facility] [address] [place] [address], [facility] MEDICAL CENTERHemoglobin (Bld) [Mass/Vol]12.6 g/dLLow13.0-17.0The [facility] CenterComment on above:Order Comment: No: Do not add to previous drawPerformed By: #### 56381, 69305, 85379, 80839 #### [facility] [address] [place] [address], [facility] (RBC) [Entitic mass]28.8 bfLyqpjz83.0-33.0The [facility] CenterComment on above:Order Comment: No: Do not add to previous drawPerformed By: #### 78570, 03176, 79819, 61589 #### [facility] [address] [place] [address], [facility] CENTERMCHC (RBC) [Mass/Vol]32.2 g/eFJoctyt96.0-35.0The [facility] CenterComment on above:Order Comment: No: Do not add to previous drawPerformed By: #### 55706, 33057, 97823, 04687 #### [facility] [address] [place] [address], USAMCV (RBC) [Entitic vol]89.5 bVWtxbff24.0-98.0The [facility] CenterComment on above:Order Comment: No: Do not add to previous drawPerformed By: #### 39991, 29438, 63865, 77657 #### [facility] [address] [place] [address], USANucleated RBC/100 WBC (Bld) [Ratio]0 %Normal0-0The [facility] CenterComment on above:Order Comment: No: Do not add to previous drawPerformed By: #### 99565, 91076, 05829, 86430 #### [facility] [address] [place] [address], USAPLAT CRY394 10*3/rRGlb813-118Thk [facility] CenterComment on above:Order Comment: No: Do not add to previous draw Performed By: #### 58592, 42815, 74447, 68416 #### [facility] [address] [place] [address], USARBC (Bld) [#/Vol]4.37 10*6/uLNormal4.20-5.70The [facility] CenterComment on above:Order Comment: No: Do not add to previous drawPerformed By: #### 92300, 50933, 61411, 78854 #### [facility] [address] [place] [address], USAWBC (Bld) [#/Vol]5.94 10*3/uLNormal4.00-10.60The [facility] CenterComment on above:Order Comment: No: Do not add to previous drawPerformed By: #### 41450, 83046, 27471, 27933 #### [facility] [address] [place] [address], USAPOC GLUCOSE LABon 33-69-8887Tkqnoif [Mass/Vol]187 mg/dLHigh 70-100The [facility] CenterComment on above:Performed By: #### 52152, 33024, 98415, 94295 #### [facility] [address] [place] [address], USAGlucose [Mass/Vol]218 mg/zIUcoy16-665Cgf [facility] CenterComment on above:Performed By: #### 14758, 27233, 51860, 71861 #### [facility] [address] [place] [address], USAGlucose [Mass/Vol]190 mg/yWUzgg60-864Kuw [facility] CenterComment on above:Performed By: #### 37480, 60026, 82764, 26583 #### [facility] [address] [place] [address], USAGlucose [Mass/Vol]184 mg/vQUnir60-842Ikn [facility] CenterComment on above:Performed By: #### 96283, 75672, 83133, 61476 #### [facility] [address] [place] [address], USAGlucose [Mass/Vol]180 mg/uPJtqp05-625Pko [facility] CenterComment on above:Performed By: #### 93881, 52102, 25130, 42332 #### [facility] [address] [place] [address], USAUFH HEPARIN ASSAYon 86-19-0945OBOZNDVRLGZDQM HEPARIN0.41 IU/mLNormal0.30-0.70The [facility] CenterComment on above: Result Comment: Rivaroxaban and Apixaban will interfere with the anti Xa assay used to monitor UFH and LMWH.Performed By: #### 83214, 98810, 90310, 81076 #### [facility] [address] [place] [address], USABASIC METABOLIC PANELon 97-26-0675Zwsodfi [Mass/Vol]8.4 mg/dLLow8.6-10.3The [facility] CenterComment on above:Order Comment: No: Do not add to previous drawPerformed By: #### 54671, 73095, 06120, 98459 #### [facility] [address] [place] [address], USAChloride [Moles/Vol]102 mmol/SPovxoh12-373Vyb [facility] CenterComment on above:Order Comment: No: Do not add to previous drawPerformed By: #### 80895, 79363, 76493, 70650 #### [facility] [address] [place] [address], USACO2 [Moles/Vol]26 mmol/WCoaucw61-65Wwz [facility] CenterComment on above:Order Comment: No: Do not add to previous draw Performed By: #### 10165, 52836, 80742, 94518 #### [facility] [address] [place] [address], USACreatinine [Mass/Vol]0.93 mg/dLNormal0.70-1.30The [facility] CenterComment on above:Order Comment: No: Do not add to previous drawPerformed By: #### 56717, 94188, 74329, 51820 #### [facility] [address] [place] [address], USAGFR/1.73 sq M predicted among blacks MDRD (S/P/Bld) [Vol rate/Area]mL/min/{1.73_m2}Normal>60The [facility] Comment on above:Order Comment: No: Do not add to previous drawResult Comment: Calculation may not be valid for patients over 70 yearsPerformed By: #### 73994, 11032, 85161, 02927 #### [facility] [address] [place] [address], USAGFR/1.73 sq M predicted among non-blacks MDRD (S/P/Bld) [Vol rate/Area]mL/min/{1.73_m2}Normal>60The [facility] Comment on above:Order Comment: No: Do not add to previous drawResult Comment: Calculation may not be valid for patients over 70 yearsPerformed By: #### 79464, 21985, 15293, 81182 #### [facility] [address] [place] [address], USAGlucose [Mass/Vol]159 mg/tHQgal64-386Zql [facility] CenterComment on above:Order Comment: No: Do not add to previous drawPerformed By: #### 93420, 16946, 89719, 87094 #### [facility] [address] [facility] [place] [address], USAPotassium [Moles/Vol]4.4 mmol/LNormal3.5-5.1The [facility] CenterComment on above:Order Comment: No: Do not add to previous drawPerformed By: #### 87767, 05454, 34159, 91475 #### [facility] [address] [facility] [place] [address], USASodium [Moles/Vol]135 mmol/EPes602-541Ebf [facility] CenterComment on above:Order Comment: No: Do not add to previous drawPerformed By: #### 10533, 86315, 77860, 68962 #### [facility] [address] [facility] [place] [address], USAUrea nitrogen [Mass/Vol]17 mg/dLNormal7-25The [facility] CenterComment on above:Order Comment: No: Do not add to previous drawPerformed By: #### 48613, 98336, 42445, 33766 #### [facility] [address] [address], USACBC W/DIFFon 68-32-2571RQB BASOPHILS0.0 10*3/uLNormal 0.0-0.2The [facility] CenterComment on above:Order Comment: No: Do not add to previous drawPerformed By: #### 50033, 90983, 65323, 08947 #### [facility] [address] [place] [id number], USAABS IMM GRANS0.0 10*3/uLNormal0.0-0.2The [facility] CenterComment on above:Order Comment: No: Do not add to previous drawPerformed By: #### 12174, 29099, 25725, 96007 #### [facility] [address] [facility] [place] [address], USAABS NEUTROPHILS5.7 10*3/uLNormal1.6-7.6The [facility] CenterComment on above:Order Comment: No: Do not add to previous drawPerformed By: #### 72776, 85147, 12641, 55899 #### [facility] [address] [facility] [place] [address], USABasophils/100 WBC (Bld)0.4 %Normal0.0-1.0The [facility] CenterComment on above:Order Comment: No: Do not add to previous drawPerformed By: #### 69922, 95008, 15967, 63568 #### [facility] [address] [facility] [place] [address], USAEosinophils (Bld) [#/Vol]0.1 10*3/uLNormal0.0-0.5The [facility] CenterComment on above:Order Comment: No: Do not add to previous drawPerformed By: #### 31260, 49797, 02644, 87145 #### [facility] [address] [facility] [place] [address], USAEosinophils/100 WBC (Bld)1.7 %Normal0.0-6.0The [facility] CenterComment on above:Order Comment: No: Do not add to previous drawPerformed By: #### 80029, 68808, 46878, 46633 #### [facility] [address] [place] [address], USAErythrocyte distribution width (RBC) [Ratio]14.3 %Normal 11.5-15.0The [facility] CenterComment on above:Order Comment: No: Do not add to previous drawPerformed By: #### 75661, 27423, 85425, 10254 #### [facility] [address] [place] [address], USAHematocrit (Bld) [Volume fraction]42.7 %Vakorp57.0-50.0The [facility] CenterComment on above:Order Comment: No: Do not add to previous drawPerformed By: #### 51320, 00635, 32021, 80309 #### [facility] [address] [place] [address], USAHemoglobin (Bld) [Mass/Vol]13.6 g/qHTdddpn03.0-17.0The [facility] CenterComment on above:Order Comment: No: Do not add to previous drawPerformed By: #### 81399, 97308, 32116, 32622 #### [facility] [address] [place] [address], USAIMMATURE GRANS0.3 %Normal0.0-1.0The [facility] CenterComment on above:Order Comment: No: Do not add to previous draw Performed By: #### 33907, 49394, 53476, 13201 #### [facility] [address] [place] [address], USALymphocytes (Bld) [#/Vol]1.3 10*3/uLNormal1.2-4.0The [facility] CenterComment on above:Order Comment: No: Do not add to previous drawPerformed By: #### 71022, 30208, 89061, 51600 #### [facility] [address] [place] [address], USALymphocytes/100 WBC (Bld)16.9 %Low20.0-45.0The [facility] CenterComment on above:Order Comment: No: Do not add to previous drawPerformed By: #### 74139, 26306, 03288, 91062 #### [facility] [address] [place] [address], [facility] (RBC) [Entitic mass]28.9 boIlnwru10.0-33.0The [facility] CenterComment on above:Order Comment: No: Do not add to previous drawPerformed By: #### 53150, 44915, 08388, 32834 #### [facility] [address] [place] [address], [facility]HC (RBC) [Mass/Vol]31.9 g/dLLow32.0-35.0The [facility] CenterComment on above:Order Comment: No: Do not add to previous drawPerformed By: #### 35072, 91746, 36628, 24344 #### [facility] [address] [place] [address], [facility] (RBC) [Entitic vol]90.9 iAXzlwwp44.0-98.0The [facility] CenterComment on above:Order Comment: No: Do not add to previous drawPerformed By: #### 90037, 43984, 94052, 97298 #### [facility] [address] [place] [address], USAMonocytes (Bld) [#/Vol]0.6 10*3/uLNormal0.1-1.0The [facility] CenterComment on above:Order Comment: No: Do not add to previous drawPerformed By: #### 71661, 94915, 29521, 61869 #### [facility] [address] [place] [address], USAMONOS7.5 %Normal5.0-12.0The [facility] CenterComment on above:Order Comment: No: Do not add to previous drawPerformed By: #### 57927, 36462, 34547, 24656 #### [facility] [address] [place] [address], USANeutrophils/100 WBC (Bld)73.2 %High40.0-72.0The [facility] CenterComment on above:Order Comment: No: Do not add to previous drawPerformed By: #### 56389, 69857, 39823, 56905 #### [facility] [address] [place] [address], USANucleated RBC/100 WBC (Bld) [Ratio]0 %Normal0-0The [facility] CenterComment on above:Order Comment: No: Do not add to previous drawPerformed By: #### 86906, 15726, 82252, 11982 #### [facility] [address] [place] [address], USAPLAT HAH835 10*3/fTLgipui328-483Bwt [facility] CenterComment on above:Order Comment: No: Do not add to previous draw Performed By: #### 74404, 55107, 98007, 65723 #### [facility] [address] [place] [address], USARBC (Bld) [#/Vol]4.70 10*6/uLNormal4.20-5.70The [facility] CenterComment on above:Order Comment: No: Do not add to previous drawPerformed By: #### 29204, 34564, 77799, 92909 #### [facility] [address] [place] [address], USAWBC (Bld) [#/Vol]7.83 10*3/uLNormal4.00-10.60The [facility] CenterComment on above:Order Comment: No: Do not add to previous drawPerformed By: #### 15055, 97768, 09192, 83260 #### [facility] [address] [place] [address], USAMAGNESIUM BLOODon 29-73-9634Ccezhttdu [Mass/Vol]2.0 mg/dL Normal1.9-2.7The [facility] CenterComment on above:Order Comment: No: Do not add to previous drawPerformed By: #### 65914, 56988, 12773, 32850 #### [facility] [address] [place] [address], USAPHOSPHORUS BLOODon 47-78-1978Htwpvovdh [Mass/Vol]2.4 mg/dL Low2.5-5.0The [facility] CenterComment on above:Order Comment: No: Do not add to previous drawPerformed By: #### 21192, 25876, 02612, 66191 #### [facility] [address] [place] [address], [place] GLUCOSE LABon 40-95-5996Ynqwegz [Mass/Vol]176 mg/dLHigh 70-100The [facility]'s Medical CenterComment on above:Performed By: #### 56712, 32056, 19678, 61947 #### [facility] [address] [place] [address], USAGlucose [Mass/Vol]188 mg/lXOujq55-329Nna [facility] Medical CenterComment on above:Performed By: #### 78089, 08478, 32668, 14278 #### [facility] [address] [place] [address], USAGlucose [Mass/Vol]162 mg/nFJlfa08-303Bkg [facility] Medical CenterComment on above:Performed By: #### 08473, 22027, 66661, 22881 #### [facility] [address] [place] [address], USAUFH HEPARIN ASSAYon 71-73-3653XDYRMDJIUHODEU HEPARIN0.46 IU/mLNormal0.30-0.70The [facility]'s Medical CenterComment on above: Result Comment: Rivaroxaban and Apixaban will interfere with the anti Xa assay used to monitor UFH and LMWH.Performed By: #### 52643, 37533, 51182, 58701 #### [facility] [address] [place] [address], USAUNFRACTIONATED HEPARIN0.42 IU/mLNormal0.30-0.70The [facility]'s Medical CenterComment on above:Result Comment: Rivaroxaban and Apixaban will interfere with the anti Xa assay used to monitor UFH and LMWH.Performed By: #### 78118, 62599, 95562, 17962 #### [facility] [address] [place] [address], USAUNFRACTIONATED HEPARIN0.39 IU/mLNormal0.30-0.70The [facility]'s Medical CenterComment on above:Result Comment: Rivaroxaban and Apixaban will interfere with the anti Xa assay used to monitor UFH and LMWH.Performed By: #### 60468, 47736, 53072, 07019 #### [facility] [address] [place] [address], USAUNFRACTIONATED HEPARIN0.12 IU/mLCritically low0.30-0.70The [facility]'s Medical CenterComment on above:Result Comment: Rivaroxaban and Apixaban will interfere with the anti Xa assay used to monitor UFH and LMWH. RESULTS CHECKED AND CALLED. ACCURATELY READ BACK BY LEANNE BEATTY RN @ 0022 on 8-41-46Eanvrwbpc By: #### 60934, 47591, 25454, 50996 #### [facility] [address] [place] [address], USABASIC METABOLIC PANELon 36-76-9120Gfeqjjj [Mass/Vol]8.3 mg/dLLow8.6-10.3The [facility]'s Medical CenterComment on above:Order Comment: No: Do not add to previous drawPerformed By: #### 18402, 88669, 12461, 47619 #### [facility] [address] [place] [address], USAChloride [Moles/Vol]103 mmol/JMdmxsg00-671Bab [facility] Medical CenterComment on above:Order Comment: No: Do not add to previous drawPerformed By: #### 05969, 93351, 60189, 86466 #### [facility] [address] [place] [address], USACO2 [Moles/Vol]23 mmol/DTytykg14-27Nmg [facility] CenterComment on above:Order Comment: No: Do not add to previous draw Performed By: #### 05946, 94478, 37531, 72412 #### [facility] [address] [place] [address], USACreatinine [Mass/Vol]0.88 mg/dLNormal0.70-1.30The [facility] Medical CenterComment on above:Order Comment: No: Do not add to previous drawPerformed By: #### 12891, 96416, 63648, 19513 #### [facility] [address] [place] [address], USAGFR/1.73 sq M predicted among blacks MDRD (S/P/Bld) [Vol rate/Area]mL/min/{1.73_m2}Normal>60The [facility] Comment on above:Order Comment: No: Do not add to previous drawResult Comment: Calculation may not be valid for patients over 70 yearsPerformed By: #### 68927, 88613, 38200, 01932 #### [facility] [address] [place] [address], USAGFR/1.73 sq M predicted among non-blacks MDRD (S/P/Bld) [Vol rate/Area]mL/min/{1.73_m2}Normal>60The [facility] Comment on above:Order Comment: No: Do not add to previous drawResult Comment: Calculation may not be valid for patients over 70 yearsPerformed By: #### 14984, 15650, 08480, 23393 #### [facility] [address] [place] [address], USAGlucose [Mass/Vol]152 mg/vKGayg73-595Evc [facility] CenterComment on above:Order Comment: No: Do not add to previous drawPerformed By: #### 07245, 57325, 45131, 75209 #### [facility] [address] [facility] [place] [address], USAPotassium [Moles/Vol]4.2 mmol/LNormal3.5-5.1The [facility]'s Medical CenterComment on above:Order Comment: No: Do not add to previous drawPerformed By: #### 13232, 19319, 93427, 06947 #### [facility] [address] [facility] [place] [address], USASodium [Moles/Vol]134 mmol/QHwq193-838Cct [facility] Medical CenterComment on above:Order Comment: No: Do not add to previous drawPerformed By: #### 24647, 57392, 06950, 17191 #### [facility] [address] [facility] [place] [address], USAUrea nitrogen [Mass/Vol]14 mg/dLNormal7-25The [facility] Medical CenterComment on above:Order Comment: No: Do not add to previous drawPerformed By: #### 23826, 29104, 38667, 25931 #### [facility] [address] [facility] [place] [address], [facility]ICAL CENTERCBC W/DIFFon [id number] BASOPHILS0.0 10*3/uLNormal 0.0-0.2The [facility]'s Medical CenterComment on above:Order Comment: No: Do not add to previous drawPerformed By: #### 09160, 55353, 16761, 21360 #### [facility] [address] [facility] [place] [address], USAABS IMM GRANS0.0 10*3/uLNormal0.0-0.2The [facility] Medical CenterComment on above:Order Comment: No: Do not add to previous drawPerformed By: #### 43364, 08371, 32151, 84669 #### [facility] [address] [facility] [place] [address], USAABS NEUTROPHILS6.9 10*3/uLNormal1.6-7.6The [facility] Medical CenterComment on above:Order Comment: No: Do not add to previous drawPerformed By: #### 84623, 85528, 56038, 81022 #### [facility] [address] [facility] [place] [address], USABasophils/100 WBC (Bld)0.4 %Normal0.0-1.0The [facility]'s Medical CenterComment on above:Order Comment: No: Do not add to previous drawPerformed By: #### 90813, 72056, 40945, 45846 #### [facility] [address] [facility] [place] [address], [facility] MEDICAL CENTEREosinophils (Bld) [#/Vol]0.1 10*3/uLNormal0.0-0.5The [facility] Medical CenterComment on above:Order Comment: No: Do not add to previous drawPerformed By: #### 06065, 58228, 45290, 96491 #### [facility] [address] [facility] [place] [address], USAEosinophils/100 WBC (Bld)0.8 %Normal0.0-6.0The [facility] Children's Medical CenterComment on above:Order Comment: No: Do not add to previous drawPerformed By: #### 03764, 90961, 89924, 51505 #### [facility] [address] [place] [address], USAErythrocyte distribution width (RBC) [Ratio]14.3 %Normal 11.5-15.0The [facility] Children's Medical CenterComment on above:Order Comment: No: Do not add to previous drawPerformed By: #### 92147, 76504, 37227, 06981 #### [facility] [address] [place] [address], USAHematocrit (Bld) [Volume fraction]45.0 %Mkurhy53.0-50.0The [facility] Children's Medical CenterComment on above:Order Comment: No: Do not add to previous drawPerformed By: #### 16135, 01088, 13901, 74529 #### [facility] [address] [place] [address], USAHemoglobin (Bld) [Mass/Vol]14.5 g/hOTqeifi09.0-17.0The [facility]'s Medical CenterComment on above:Order Comment: No: Do not add to previous drawPerformed By: #### 48829, 99141, 04524, 72336 #### [facility] [address] [place] [address], USAIMM PLATELET FRAC3.3 %Normal0.8-6.3The [facility] Children's Medical CenterComment on above:Order Comment: No: Do not add to previous draw Performed By: #### 34600, 60906, 21253, 58704 #### [facility] [address] [facility] [place] [address], USAIMMATURE GRANS0.3 %Normal0.0-1.0The [facility]'s Medical CenterComment on above:Order Comment: No: Do not add to previous draw Performed By: #### 88311, 36240, 65741, 88185 #### [facility] [address] [place] [address], USALymphocytes (Bld) [#/Vol]1.2 10*3/uLNormal1.2-4.0The [facility]'s Medical CenterComment on above:Order Comment: No: Do not add to previous drawPerformed By: #### 41752, 58748, 19749, 72584 #### [facility] [address] [place] [address], USALymphocytes/100 WBC (Bld)13.5 %Low20.0-45.0The [facility] Children's Medical CenterComment on above:Order Comment: No: Do not add to previous drawPerformed By: #### 97780, 84024, 67312, 39266 #### [facility] [address] [place] [address], [facility] (RBC) [Entitic mass]29.1 gaWpktmo55.0-33.0The [facility] Medical CenterComment on above:Order Comment: No: Do not add to previous drawPerformed By: #### 23288, 99415, 89953, 26122 #### [facility] [address] [place] [address], [facility]HC (RBC) [Mass/Vol]32.2 g/iMAaofca00.0-35.0The [facility] Medical CenterComment on above:Order Comment: No: Do not add to previous drawPerformed By: #### 68641, 90614, 37026, 91336 #### [facility] [address] [facility] [place] [address], [facility]V (RBC) [Entitic vol]90.2 kKRhiulw80.0-98.0The [facility] Medical CenterComment on above:Order Comment: No: Do not add to previous drawPerformed By: #### 67395, 19695, 50422, 34890 #### [facility] [address] [place] [address], [facility] MEDICAL CENTERMonocytes (Bld) [#/Vol]0.7 10*3/uLNormal0.1-1.0The [facility] Medical CenterComment on above:Order Comment: No: Do not add to previous drawPerformed By: #### 06148, 26231, 95967, 23707 #### [facility] [address] [place] [address], USAMONOS7.8 %Normal5.0-12.0The [facility]'s Medical CenterComment on above:Order Comment: No: Do not add to previous drawPerformed By: #### 77785, 93125, 27346, 36349 #### [facility] [address] [place] [address], USANeutrophils/100 WBC (Bld)77.2 %High40.0-72.0The [facility] Children's Medical CenterComment on above:Order Comment: No: Do not add to previous drawPerformed By: #### 49102, 25613, 97193, 60312 #### [facility] [address] [place] [address], USANucleated RBC/100 WBC (Bld) [Ratio]0 %Normal0-0The [facility] Children's Medical CenterComment on above:Order Comment: No: Do not add to previous drawPerformed By: #### 94311, 35067, 82972, 99299 #### [facility] [address] [place] [address], USAPLAT PIY012 10*3/oRFrj906-190Jlk [facility] Medical CenterComment on above:Order Comment: No: Do not add to previous draw Performed By: #### 12815, 30436, 94452, 16048 #### [facility] [address] [place] [address], USARBC (Bld) [#/Vol]4.99 10*6/uLNormal4.20-5.70The [facility]'s Medical CenterComment on above:Order Comment: No: Do not add to previous drawPerformed By: #### 83896, 03937, 34701, 12621 #### [facility] [address] [place] [address], USAWBC (Bld) [#/Vol]8.90 10*3/uLNormal4.00-10.60The [facility]'s Medical CenterComment on above:Order Comment: No: Do not add to previous drawPerformed By: #### 33793, 74944, 80380, 73351 #### [facility] [address] [place] [address], [facility] MEDICAL CENTERCardiovascular Lab Reporton [id number] Lab ReportUnMansfield Hospital Patient Name: Serge Shine [facility] [place] MR #: [id number] Physician: Willie Madrigal of [facility] Chavez Medicine Service Date: 06/02/2019 Division of Birthdate: 1945 Cardiology Room #: 3CD [id number] Adult Cardiovascular Services [facility] [address] [place], [place] [address] Cardiovascular Laboratory Report INDICATION: The patient is [...] signed informed consent. He was brought to [employer] in a fasting state. The right wrist area was prepped and draped in usual fashion. Modified Mason's test was favorable. Access in the right radial artery was obtained. Using micropuncture technique, a 6-Cypriot x 11 cm Hydrophilic sheath was advanced. Verapamil was given through the sheath and heparin was administered intravenously. Bilateral selective coronary angiography was then performed using 6-Cypriot JL3.5 and JR4 diagnostic catheters. Note that initial catheter advancement over the brachial area was facilitated using an angled Glidewire. Catheters were removed. Therapeutic ACT was confirmed during the rest of the procedure. A 6-Cypriot JR4 guiding catheter was advanced and used [...] atmospheres and post dilated using NC Quantum Malin 3.5 x 15 mm noncompliant balloon inflated at 18 atmospheres throughout the length of the stented segment. Additional postdilatation using NC Quantum Malin 4.0 x 8 mm noncompliant balloon was [...] in Cardiology Clinic. Electronically Signed by: Willie Chavez M.D. 07/03/2019 01:10 P Willie Chavez M.D. Date Dict: 06/02/2019/01:28 P/Willie Chavez M.D. Date Trans: 06/03/2019 04:36 Trudi/elías DN_JN:[id number] cc: Benedict Vallecillo M.D. [address]West [facility] [address]NwzzaeJozHolzer Health SystemMAGNESIUM BLOODon [id number] [Mass/Vol]1.9 mg/dLNormal1.9-2.7The [facility] Medical CenterComment on above:Order Comment: No: Do not add to previous draw Performed By: #### 21048, 21046, 11089, 96876 #### [facility] [address] [facility] [place] [address], [facility] MEDICAL CENTERPHOSPHORUS BLOODon 95-94-1092Xraxxahxg [Mass/Vol]2.3 mg/dL Low2.5-5.0The [facility] Children's Medical CenterComment on above:Order Comment: No: Do not add to previous drawPerformed By: #### 26240, 94836, 02194, 05873 #### [facility] [address] [place] [address], [facility] PH[facility] MEDICAL CENTERPOC GLUCOSE LABon 33-89-5635Fznfwkl [Mass/Vol]175 mg/dLHigh 70-100The [facility]'s Medical CenterComment on above:Performed By: #### 54859, 36272, 90519, 31061 #### [facility] [address] [place] [address], USAGlucose [Mass/Vol]223 mg/lCEnon22-020Hkq [facility] CenterComment on above:Performed By: #### 20713, 03312, 12892, 53689 #### [facility] [address] [place] [address], USAGlucose [Mass/Vol]156 mg/uKVius98-339Tck [facility] Medical CenterComment on above:Performed By: #### 97378, 07806, 16805, 06903 #### [facility] [address] [place] [address], USAUFH HEPARIN ASSAYon 54-73-7976HWJUHHNXRIIIUH HEPARIN0.20 IU/mLLow0.30-0.70The [facility]'s Medical CenterComment on above:Result Comment: Rivaroxaban and Apixaban will interfere with the anti Xa assay used to monitor UFH and LMWH.Performed By: #### 19033, 92960, 85275, 62090 #### [facility] [address] [place] [address], USAUNFRACTIONATED HEPARIN<0.10Critically low0.30-0.70The [facility] Children's Medical CenterComment on above:Result Comment: Rivaroxaban and Apixaban will interfere with the anti Xa assay used to monitor UFH and LMWH. Result called to TRAVIS ANDREW 0737Performed By: #### 14667, 05031, 07582, 53072 #### [facility] [address] [place] [address], USABASIC METABOLIC PANELon 26-27-9261Jnwmuxx [Mass/Vol]8.4 mg/dLLow8.6-10.3The [facility] Medical CenterComment on above:Order Comment: No: Do not add to previous drawPerformed By: #### 51481, 15439, 79690, 89944 #### [facility] [address] [place] [address], USAChloride [Moles/Vol]103 mmol/JIfhynt46-642Sme [facility] Medical CenterComment on above:Order Comment: No: Do not add to previous drawPerformed By: #### 92742, 71621, 26901, 02970 #### [facility] [address] [place] [address], USACO2 [Moles/Vol]26 mmol/ONqnybo64-73Efw [facility] Medical CenterComment on above:Order Comment: No: Do not add to previous draw Performed By: #### 02094, 77631, 85776, 43695 #### [facility] [address] [place] [address], USACreatinine [Mass/Vol]1.07 mg/dLNormal0.70-1.30The [facility] Medical CenterComment on above:Order Comment: No: Do not add to previous drawPerformed By: #### 81704, 83240, 30825, 25003 #### [facility] [address] [place] [address], USAGFR/1.73 sq M predicted among blacks MDRD (S/P/Bld) [Vol rate/Area]mL/min/{1.73_m2}Normal>60The [facility] Comment on above:Order Comment: No: Do not add to previous drawResult Comment: Calculation may not be valid for patients over 70 yearsPerformed By: #### 91537, 20148, 21993, 10189 #### [facility] [address] [place] [address], USAGFR/1.73 sq M predicted among non-blacks MDRD (S/P/Bld) [Vol rate/Area]mL/min/{1.73_m2}Normal>60The [facility] Comment on above:Order Comment: No: Do not add to previous drawResult Comment: Calculation may not be valid for patients over 70 yearsPerformed By: #### 51786, 02840, 81554, 72999 #### [facility] [address] [place] [address], USAGlucose [Mass/Vol]155 mg/wKUupp22-067Smf [facility] Medical CenterComment on above:Order Comment: No: Do not add to previous drawPerformed By: #### 87233, 27122, 04529, 16850 #### [facility] [address] [place] [address], USAPotassium [Moles/Vol]4.7 mmol/LNormal3.5-5.1The [facility] Medical CenterComment on above:Order Comment: No: Do not add to previous drawPerformed By: #### 90066, 80759, 16356, 79153 #### [facility] [address] [place] [address], USASodium [Moles/Vol]135 mmol/SPkm142-339Bia [facility] Medical CenterComment on above:Order Comment: No: Do not add to previous drawPerformed By: #### 88520, 85908, 23300, 48914 #### [facility] [address] [place] [address], USAUrea nitrogen [Mass/Vol]17 mg/dLNormal7-25The [facility] Medical CenterComment on above:Order Comment: No: Do not add to previous drawPerformed By: #### 66754, 23299, 18539, 11372 #### [facility] [address] [facility] [place] [address], USACBC COMPLETE BLOOD COUNTon 61-60-8250Mfwvtvvwpdc distribution width (RBC) [Ratio]14.3 %Xkkoez51.5-15.0The [facility]'s Medical CenterComment on above:Order Comment: No: Do not add to previous draw Performed By: #### 63033, 00226, 32104, 36086 #### [facility] [address] [place] [address], USAHematocrit (Bld) [Volume fraction]46.3 %Obonbo12.0-50.0The [facility]'s Medical CenterComment on above:Order Comment: No: Do not add to previous drawPerformed By: #### 34508, 41552, 91567, 05221 #### [facility] [address] [place] [address], USAHemoglobin (Bld) [Mass/Vol]14.7 g/iFBljvez62.0-17.0The [facility] Medical CenterComment on above:Order Comment: No: Do not add to previous drawPerformed By: #### 40960, 81146, 47627, 57054 #### [facility] [address] [facility] [place] [address], USAIMM PLATELET FRAC3.4 %Normal0.8-6.3The [facility] Medical CenterComment on above:Order Comment: No: Do not add to previous draw Performed By: #### 95064, 92034, 15215, 69973 #### [facility] [address] [place] [address], [facility] (RBC) [Entitic mass]29.0 oaRlgcqe05.0-33.0The [facility] Medical CenterComment on above:Order Comment: No: Do not add to previous drawPerformed By: #### 46655, 98960, 78662, 22355 #### [facility] [address] [place] [address], [facility] (RBC) [Mass/Vol]31.7 g/dLLow32.0-35.0The [facility] Medical CenterComment on above:Order Comment: No: Do not add to previous drawPerformed By: #### 54683, 78370, 57048, 68498 #### [facility] [address] [place] [address], [facility] (RBC) [Entitic vol]91.3 xKEbxqel47.0-98.0The [facility] Medical CenterComment on above:Order Comment: No: Do not add to previous drawPerformed By: #### 90458, 45834, 49845, 49254 #### [facility] [address] [place] [address], USANucleated RBC/100 WBC (Bld) [Ratio]0 %Normal0-0The [facility] Children's Medical CenterComment on above:Order Comment: No: Do not add to previous drawPerformed By: #### 51847, 17256, 80143, 81937 #### [facility] [address] [place] [address], USAPLAT [id number] 10*3/nNHec609-192Chm [facility] CenterComment on above:Order Comment: No: Do not add to previous draw Performed By: #### 40075, 17722, 23276, 64985 #### [facility] [address] [facility] [place] [address], USARBC (Bld) [#/Vol]5.07 10*6/uLNormal4.20-5.70The [facility] Medical CenterComment on above:Order Comment: No: Do not add to previous drawPerformed By: #### 05868, 61016, 71085, 17171 #### [facility] [address] [facility] [place] [address], USAWBC (Bld) [#/Vol]8.85 10*3/uLNormal4.00-10.60The [facility] Medical CenterComment on above:Order Comment: No: Do not add to previous drawPerformed By: #### 60854, 17323, 04114, 34869 #### [facility] [address] [place] [address], USAErythrocyte distribution width (RBC) [Ratio]14.0 %Normal 11.5-15.0The [facility] Children's Medical CenterComment on above:Order Comment: No: Do not add to previous drawPerformed By: #### 11416, 20929, 22792, 41617 #### [facility] [address] [place] [address], USAHematocrit (Bld) [Volume fraction]45.2 %Uznzux02.0-50.0The [facility]'s Medical CenterComment on above:Order Comment: No: Do not add to previous drawPerformed By: #### 80623, 72160, 47426, 62673 #### [facility] [address] [place] [address], USAHemoglobin (Bld) [Mass/Vol]14.2 g/gEPtdxhr29.0-17.0The [facility] Medical CenterComment on above:Order Comment: No: Do not add to previous drawPerformed By: #### 18958, 15961, 56006, 03731 #### [facility] [address] [address], USAIMM PLATELET FRAC3.8 %Normal0.8-6.3The [facility]'s Medical CenterComment on above:Order Comment: No: Do not add to previous draw Performed By: #### 36699, 55451, 29323, 94134 #### [facility] [address] [facility] [place] [address], [facility] (RBC) [Entitic mass]28.9 fuOppsgc92.0-33.0The [facility]'s Medical CenterComment on above:Order Comment: No: Do not add to previous drawPerformed By: #### 46395, 12379, 81380, 11750 #### [facility] [address] [place] [address], [facility] (RBC) [Mass/Vol]31.4 g/dLLow32.0-35.0The [facility] Children's Medical CenterComment on above:Order Comment: No: Do not add to previous drawPerformed By: #### 34708, 55591, 92463, 33235 #### [facility] [address] [place] [address], [facility] [place] (RBC) [Entitic vol]92.1 cKMjgmio51.0-98.0The [facility] Medical CenterComment on above:Order Comment: No: Do not add to previous drawPerformed By: #### [id number], [id number], [id number], [id number] #### [facility] [address] [place] [address], USANucleated RBC/100 WBC (Bld) [Ratio]0 %Normal0-0The [facility] Medical CenterComment on above:Order Comment: No: Do not add to previous drawPerformed By: #### 31635, 55374, 35639, 55895 #### [facility] [address] [place] [address], USAPLAT KSP912 10*3/pMCat092-598Gkm [facility] CenterComment on above:Order Comment: No: Do not add to previous draw Performed By: #### 86088, 88001, 50691, 08603 #### [facility] [address] [place] [address], USARBC (Bld) [#/Vol]4.91 10*6/uLNormal4.20-5.70The [facility] Medical CenterComment on above:Order Comment: No: Do not add to previous drawPerformed By: #### 26611, 11953, 51164, 38720 #### [facility] [address] [place] [address], USAWBC (Bld) [#/Vol]8.36 10*3/uLNormal4.00-10.60The [facility] Medical CenterComment on above:Order Comment: No: Do not add to previous drawPerformed By: #### 67626, 65037, 62123, 64569 #### [facility] [address] [place] [address], USACardiovascular Lab Reporton [id number] Lab ReportUnMansfield Hospital Patient Name: Serge Shine [facility] MR #: [id number] Physician: Willie Madrigal of Branden Chavez Medicine Service Date: 06/01/2019 Division of Birthdate: 1945 Cardiology Room #: 3CD [id number] Adult Cardiovascular Services [facility] [address] [place] [address] Cardiovascular Laboratory Report INDICATION: The patient is [...] informed consent. He was brought to the [employer] in a fasting state. The right neck area was prepped and draped in usual fashion. Using ultrasound guidance and micropuncture technique, 2 separate accesses were obtained in the right internal jugular vein and two 6-Cypriot x 11 cm sheaths were placed. A 6-Cypriot Cespedes catheter was used for right heart [...] inpatient Cardiology service. Electronically Signed by: Willie Chavez M.D. 07/03/2019 12:18 P Willie Chavez M.D. Date Dict: 06/01/2019/10:49 A/Willie Chavez M.D. Date Trans: 06/02/2019 08:24 Trudi/elías DN_JN:[id number] cc: Benedict Vallecillo M.D. [address] [facility] [address]JziwkjLunMagruder HospitalCardiovascular Lab ReportSelect [facility]ty [facility] [place] [facility] #: [id number] Physician: Willie Peñaloza M.D. Medicine Service Date: 06/01/2019 Division of Birthdate: 1945 Cardiology Room #: 3CD [id number] [facility] Cardiovascular Services [place] [address] Cardiovascular Laboratory Report CLINICAL PRESENTATION: The patient [...] The patient will follow up with Dr. Chavez in 3-4 weeks. Repeat echocardiogram to be [...] 06/02/2019 01:28 P Electronically Signed by: Willie Chavez M.D. 07/03/2019 12:18 P Willie Chavez M.D. I was not present but assume all responsibility for the procedure. NOT BILLABLE Date Dict: 06/01/2019/06:11 P/Claudia Garcia MD Date Trans: 06/02/2019 08:22 A/elías DN_JN:[id number] cc: Benedict Vallecillo M.D. [address] [facility] [address]WlkzysFnbMagruder HospitalFIBRINOGENon 06-00-9914JIBNSBSSFX288 mg/oGBsavme305-988Pvs [facility] CenterComment on above:Order Comment: No: Do not add to previous drawPerformed By: #### 46156, 94341, 06873, 52948 #### [facility] [address] [place] [address], MMJBSJCXSMKSH970 mg/hHChzcne823-915Hfe [facility] CenterComment on above:Order Comment: No: Do not add to previous draw Performed By: #### 42234, 50326, 54015, 43428 #### [facility] [address] [place] [address], USAMAGNESIUM BLOODon 54-33-6381Meynsqhak [Mass/Vol]2.0 mg/dL Normal1.9-2.7The [facility] Medical CenterComment on above:Order Comment: No: Do not add to previous drawPerformed By: #### 01030, 56881, 45029, 71873 #### [facility] [address] [place] [address], USAPHOSPHORUS BLOODon 75-25-5050Llivrlwmk [Mass/Vol]3.3 mg/dL Normal2.5-5.0The [facility] Medical CenterComment on above:Order Comment: No: Do not add to previous drawPerformed By: #### 91336, 53202, 41944, 61833 #### [facility] [address] [place] [address], USAPOC GLUCOSE LABon 10-97-5589Ottywpp [Mass/Vol]144 mg/dLHigh 70-100The [facility] Medical CenterComment on above:Performed By: #### 42908, 87170, 39127, 63214 #### [facility] [address] [place] [address], USAGlucose [Mass/Vol]203 mg/dCYfcp84-417Bti [facility] CenterComment on above:Performed By: #### 18298, 68880, 20327, 44338 #### [facility] [address] [place] [address], USAGlucose [Mass/Vol]141 mg/oYHoqp17-433Owp [facility] Medical CenterComment on above:Performed By: #### 31843, 62324, 95138, 42986 #### [facility] [address] [place] [address], USATROPONIN-Ion 59-33-6046Wwnqqpgd I.cardiac [Mass/Vol]0.17 ng/mLCritically high0.00-0.04The [facility] Medical CenterComment on above:Order Comment: No: Do not add to previous drawResult Comment: M-PREVIOUS CRITICAL RESULT REFERENCE RANGES: 0.00 - 0.04 ng/ml NORMAL 0.05 - 0.50 ng/ml INDETERMINATE > 0.50 ng/ml CONSISTENT WITH AN M.I.Performed By: #### 18365, 71311, 23725, 41887 #### [facility] [address] [place] [address], USAUFH HEPARIN ASSAYon 91-59-5017WHZCDFTMDHXPMD HEPARIN0.41 IU/mLNormal0.30-0.70The [facility] Medical CenterComment on above: Result Comment: Rivaroxaban and Apixaban will interfere with the anti Xa assay used to monitor UFH and LMWH.Performed By: #### 28044, 58058, 08764, 43673 #### [facility] [address] [place] [address], USAUNFRACTIONATED HEPARIN>1.00Critically high0.30-0.70The [facility]'s Medical CenterComment on above:Order Comment: This order is a replacement of the rejected order with accession [id number].Result Comment: Rivaroxaban and Apixaban will interfere with the anti Xa assay used to monitor UFH and LMWH. PATIENT ON HEPARING FROM HISTORIC INTERPRETER, ELENITA VALENTE R.N. STATES NO WHERE TO DRAW THIS PATIENT EXCEPT ABOVE AN IV SITE, AFTER IV HAS BEEN TURNED OFF FOR ONE HALF HOUR. RESULTS MAY NOT BE ACCURATE UFH 1.15Performed By: #### 09179, 96378, 71008, 98674 #### [facility] [address] [place] [address], USAUNFRACTIONATED HEPARIN0.20 IU/mLLow0.30-0.70The [facility] Medical CenterComment on above:Result Comment: Rivaroxaban and Apixaban will interfere with the anti Xa assay used to monitor UFH and LMWH.Performed By: #### 11255, 83169, 46836, 01516 #### [facility] [address] [place] [address], USAAPTTon 56-68-8750vSEL Coag (Bld) [Time]60.4 sHigh25.0-35.0 The [facility]'s Medical CenterComment on above:Order Comment: No: Do not add to previous drawResult Comment: ALL RESULTS MUST BE INTERPRETED WITH RESPECT TO BLOOD DRAWING ARTIFACT OR DILUTION ERROR OF ANTICOAGULANT AT THE TIME OF SAMPLING. THE APTT SHOULD NOT BE USED TO MONITOR UNFRACTIONATED HEPARIN THERAPY, THIS LABORATORY NO LONGER HAS AN ESTABLISHED THERAPEUTIC RANGE BASED ON THE APTT. IT IS RECOMMENDED THAT THE UFH - HEPARIN ASSAY (ANTI-XA ACTIVITY) BE USED FOR THIS PURPOSE.Performed By: #### 45001, 95892, 85223, 29122 #### [facility] [address] [place] [address], USABASIC METABOLIC PANELon 20-93-4690Vagwepm [Mass/Vol]8.7 mg/dLNormal8.6-10.3The [facility] Medical CenterComment on above:Order Comment: No: Do not add to previous drawPerformed By: #### 92132, 15089, 62842, 68376 #### [facility] [address] [place] [address], USAChloride [Moles/Vol]103 mmol/WInprix29-727Zxd [facility] CenterComment on above:Order Comment: No: Do not add to previous drawPerformed By: #### 26106, 48999, 49905, 47313 #### [facility] [address] [place] [address], USACO2 [Moles/Vol]26 mmol/DUfycwm89-48Xav [facility] CenterComment on above:Order Comment: No: Do not add to previous draw Performed By: #### 49894, 14355, 49352, 63543 #### [facility] [address] [place] [address], USACreatinine [Mass/Vol]1.19 mg/dLNormal0.70-1.30The [facility] Medical CenterComment on above:Order Comment: No: Do not add to previous drawPerformed By: #### 24909, 41153, 97818, 59821 #### [facility] [address] [place] [address], USAGFR/1.73 sq M predicted among blacks MDRD (S/P/Bld) [Vol rate/Area]mL/min/{1.73_m2}Normal>60The [facility] Comment on above:Order Comment: No: Do not add to previous drawResult Comment: Calculation may not be valid for patients over 70 yearsPerformed By: #### 57098, 10580, 21893, 01141 #### [facility] [address] [place] [address], USAGFR/1.73 sq M predicted among non-blacks MDRD (S/P/Bld) [Vol rate/Area]60 ml/min/1.73sq mAbnormal>60The [facility] CenterComment on above:Order Comment: No: Do not add to previous drawResult Comment: Calculation may not be valid for patients over 70 yearsPerformed By: #### 30244, 37184, 68081, 01389 #### [facility] [address] [place] [address], USAGlucose [Mass/Vol]144 mg/iJKspn18-227Uqk [facility] CenterComment on above:Order Comment: No: Do not add to previous drawPerformed By: #### 25817, 93765, 39545, 07715 #### [facility] [address] [place] [address], USAPotassium [Moles/Vol]4.6 mmol/LNormal3.5-5.1The [facility] Medical CenterComment on above:Order Comment: No: Do not add to previous drawPerformed By: #### 18995, 00666, 90570, 61533 #### [facility] [address] [place] [address], USASodium [Moles/Vol]137 mmol/JKcjfof169-836Whi [facility] CenterComment on above:Order Comment: No: Do not add to previous drawPerformed By: #### 85038, 74673, 27937, 55949 #### [facility] [address] [place] [address], USAUrea nitrogen [Mass/Vol]21 mg/dLNormal7-25The [facility] CenterComment on above:Order Comment: No: Do not add to previous drawPerformed By: #### 44477, 11913, 32311, 75234 #### [facility] [address] [place] [address], USACBC COMPLETE BLOOD COUNTon 05-89-8380Ullklkztgfd distribution width (RBC) [Ratio]14.3 %Xtxqfk78.5-15.0The [facility] CenterComment on above:Order Comment: No: Do not add to previous draw Performed By: #### 94071, 02053, 11797, 00631 #### [facility] [address] [place] [address], USAHematocrit (Bld) [Volume fraction]48.1 %Xcwfoj69.0-50.0The [facility] CenterComment on above:Order Comment: No: Do not add to previous drawPerformed By: #### 42115, 07924, 17611, 55443 #### [facility] [address] [place] [address], USAHemoglobin (Bld) [Mass/Vol]15.1 g/yFKkziyg16.0-17.0The [facility] CenterComment on above:Order Comment: No: Do not add to previous drawPerformed By: #### 24333, 99649, 17288, 23083 #### [facility] [address] [place] [address], USAMCH (RBC) [Entitic mass]28.9 elXocslg11.0-33.0The [facility] CenterComment on above:Order Comment: No: Do not add to previous drawPerformed By: #### 71530, 98519, 62598, 07236 #### [facility] [address] [place] [address], [facility]HC (RBC) [Mass/Vol]31.4 g/dLLow32.0-35.0The [facility] Medical CenterComment on above:Order Comment: No: Do not add to previous drawPerformed By: #### 16521, 98312, 48694, 75537 #### [facility] [address] [place] [address], [facility] CITYV (RBC) [Entitic vol]92.1 iXWrdzhj20.0-98.0The [facility] Medical CenterComment on above:Order Comment: No: Do not add to previous drawPerformed By: #### 88230, 09138, 70424, 05166 #### [facility] [address] [place] [address], USANucleated RBC/100 WBC (Bld) [Ratio]0 %Normal0-0The [facility] Medical CenterComment on above:Order Comment: No: Do not add to previous drawPerformed By: #### 57904, 35404, 28106, 69341 #### [facility] [address] [facility] [place] [address], [place]AP[place]AT PPZ651 10*3/aGEit995-417Ywb [facility] CenterComment on above:Order Comment: No: Do not add to previous draw Performed By: #### 39130, 65707, 67425, 91778 #### [facility] [address] [place] [address], USARBC (Bld) [#/Vol]5.22 10*6/uLNormal4.20-5.70The [facility] Medical CenterComment on above:Order Comment: No: Do not add to previous drawPerformed By: #### 41557, 04917, 81867, 06601 #### [facility] [address] [place] [address], USAWBC (Bld) [#/Vol]10.11 10*3/uLNormal4.00-10.60The [facility] CenterComment on above:Order Comment: No: Do not add to previous drawPerformed By: #### 74246, 73274, 30790, 48080 #### [facility] [address] [place] [address], USAErythrocyte distribution width (RBC) [Ratio]14.4 %Normal 11.5-15.0The [facility] CenterComment on above:Order Comment: No: Do not add to previous drawPerformed By: #### 07836, 79200, 55241, 54848 #### [facility] [address] [place] [address], USAHematocrit (Bld) [Volume fraction]45.3 %Owkaoc73.0-50.0The [facility] Medical CenterComment on above:Order Comment: No: Do not add to previous drawPerformed By: #### 86386, 36086, 40598, 37364 #### [facility] [address] [place] [address], USAHemoglobin (Bld) [Mass/Vol]14.3 g/cHNpqvmv11.0-17.0The [facility] CenterComment on above:Order Comment: No: Do not add to previous drawPerformed By: #### 65915, 34496, 67529, 29193 #### [facility] [address] [place] [address], USAIMM PLATELET FRAC3.3 %Normal0.8-6.3The [facility] Medical CenterComment on above:Order Comment: No: Do not add to previous draw Performed By: #### 50637, 09139, 34931, 65509 #### [facility] [address] [place] [address], [facility] (RBC) [Entitic mass]29.1 pwNwpvdr74.0-33.0The [facility] Medical CenterComment on above:Order Comment: No: Do not add to previous drawPerformed By: #### 04824, 69041, 83702, 44979 #### [facility] [address] [facility] [place] [address], [facility] (RBC) [Mass/Vol]31.6 g/dLLow32.0-35.0The [facility] Medical CenterComment on above:Order Comment: No: Do not add to previous drawPerformed By: #### 05191, 98415, 24420, 43579 #### [facility] [address] [facility] [address], [facility]V (RBC) [Entitic vol]92.1 hARmqzmk89.0-98.0The [facility] Medical CenterComment on above:Order Comment: No: Do not add to previous drawPerformed By: #### 75882, 58707, 79169, 94699 #### [facility] [address] [facility] [place] [address], [facility] MEDICAL CENTERNucleated RBC/100 WBC (Bld) [Ratio]0 %Normal0-0The [facility] CenterComment on above:Order Comment: No: Do not add to previous drawPerformed By: #### 27158, 75286, 80358, 76480 #### [facility] [address] [facility] [place] [address], [place]AP[place]AT [id number] 10*3/eYAhu231-237Afd [facility] CenterComment on above:Order Comment: No: Do not add to previous draw Performed By: #### 74330, 15205, 18723, 91747 #### [facility] [address] [facility] [place] [address], [facility] MEDICAL CENTERRBC (Bld) [#/Vol]4.92 10*6/uLNormal4.20-5.70The [facility] CenterComment on above:Order Comment: No: Do not add to previous drawPerformed By: #### 28821, 65538, 48909, 21842 #### [facility] [address] [address], USAWBC (Bld) [#/Vol]9.17 10*3/uLNormal4.00-10.60The [facility] CenterComment on above:Order Comment: No: Do not add to previous drawPerformed By: #### 83542, 05468, 87189, 71727 #### [facility] [address] [facility] [place] [address], USAErythrocyte distribution width (RBC) [Ratio]14.4 %Normal 11.5-15.0The [facility] CenterComment on above:Order Comment: No: Do not add to previous drawPerformed By: #### 91635, 24523, 80823, 38787 #### [facility] [address] [address], USAHematocrit (Bld) [Volume fraction]46.9 %Bthwte27.0-50.0The [facility] CenterComment on above:Order Comment: No: Do not add to previous drawPerformed By: #### 78726, 90707, 88247, 91774 #### [facility] [address] [facility] [place] [address], USAHemoglobin (Bld) [Mass/Vol]14.6 g/mJYolelb69.0-17.0The [facility] CenterComment on above:Order Comment: No: Do not add to previous drawPerformed By: #### 68070, 09832, 32199, 70850 #### [facility] [address] [facility] [place] [place] [address], USAMCH (RBC) [Entitic mass]28.7 bjWakzaz77.0-33.0The [facility] CenterComment on above:Order Comment: No: Do not add to previous drawPerformed By: #### 66232, 96485, 60334, 48802 #### [facility] [address] [place] [address], [facility] CENTERMCHC (RBC) [Mass/Vol]31.1 g/dLLow32.0-35.0The [facility] CenterComment on above:Order Comment: No: Do not add to previous drawPerformed By: #### 95635, 65067, 76150, 63269 #### [facility] [address] [place] [address], [facility] CENTERMCV (RBC) [Entitic vol]92.3 oAXgjedd90.0-98.0The [facility] CenterComment on above:Order Comment: No: Do not add to previous drawPerformed By: #### 47464, 51761, 13783, 18105 #### [facility] [address] [place] [address], USANucleated RBC/100 WBC (Bld) [Ratio]0 %Normal0-0The [facility] CenterComment on above:Order Comment: No: Do not add to previous drawPerformed By: #### 64469, 31218, 18619, 67646 #### [facility] [address] [place] [address], [place]APLAT EQK284 10*3/sRChu158-010Fan [facility] CenterComment on above:Order Comment: No: Do not add to previous draw Performed By: #### 11866, 77722, 28947, 34654 #### [facility] [address] [place] [address], USARBC (Bld) [#/Vol]5.08 10*6/uLNormal4.20-5.70The [facility] CenterComment on above:Order Comment: No: Do not add to previous drawPerformed By: #### 41655, 96555, 40267, 52738 #### [facility] [address] [place] [address], USAWBC (Bld) [#/Vol]8.84 10*3/uLNormal4.00-10.60The [facility] CenterComment on above:Order Comment: No: Do not add to previous drawPerformed By: #### 45504, 91080, 15747, 36935 #### [facility] [address] [facility] [place] [place] [address], USACEAon 61-99-7193CBY6.6 ng/mLNormal0.0-3.0The [facility] CenterComment on above:Order Comment: No: Do not add to previous drawPerformed By: #### 69758, 78855, 95089, 48431 #### [facility] [address] [facility] [place] [place] [address], USACT ABDOMEN AND PELVIS WO CONTRASTon 38-54-8877SW ABDOMEN AND PELVIS WO CONTRASTUnHolzer Hospital Department of Radiology [address] [place] [address] Patient Name: SERGE SHINE : 1945 Sex: M Age: Race: White Pt. Location: [id number] Patient Status: I Ordered Date: 06/01/2019 7:25:00 PM Completed Date: 06/01/2019 08:54 PM Requesting Provider: STEPHANIE YU Attending Provider: SHEILA SALAZAR Report Copy To: Signs & Symptoms: Abnormal Bleeding History: See Comments Comments: R/O Retroperitoneal Mass/Abscess, r/o retroperitoneal bleed s/p tPA Exam: CT ABDOMEN AND PELVIS WO CONTRAST CT ABDOMEN AND PELVIS WO CONTRAST 06/01/2019 [...] severe atherosclerotic calcification infrarenally and into the [place] iliac arteries. There is a infrarenal abdominal [...] grafts and severe atherosclerotic calcification of the [place] iliac arteries. 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 Approved by:Gui Dunlap on 06/01/2019 9:32 PM EDT. I, Lyndsey Medina, have reviewed the images and report and concur with these findings. Electronically signed by:Lyndsey Medina. Transcribed by: [email or web address], User Resident: GUI DUNLAP Electronically Signed by: LYNDSEY MEDINA @ 06/02/2019 12:31 PM I personally read this/these film(s) with this residentMagruder HospitalComment on above:Order Comment: R/O Retroperitoneal Mass/Abscess, r/o retroperitoneal bleed s/p tPACT CHEST WO CONTRASTon 06-01-2019 CT CHEST WO CONTRASTUnHolzer Hospital Department of Radiology [address] [place] [address] Patient Name: SERGE SHIEN : 1945 Sex: M Age: Race: White Pt. Location: [id number] Patient Status: I Ordered Date: 06/01/2019 7:10:00 PM Completed Date: 06/01/2019 08:54 PM Requesting Provider: SHEILA SALAZAR Attending Provider: SHEILA SALAZAR Report Copy To: Signs & Symptoms: Shortness of Breath History: See Comments Comments: Other, r/o bleed post TPA Exam: CT CHEST WO CONTRAST CT CHEST WO CONTRAST 06/01/2019 8:54 PM [...] the lungs with bibasilar atelectasis. Approved by:Gui Dunlap on 06/01/2019 9:03 PM EDT. I, Franklin Molina, have reviewed the images and report and concur with these findings. Electronically signed by:Franklin Molina. Transcribed by: [email or web address], User Resident: GUI DUNLAP Electronically Signed by: FRANKLIN MOLINA @ 06/02/2019 11:44 AM I personally read this/these film(s) with this residentNoHolzer Health SystemComment on above:Order Comment: Other, r/o bleed post TPA FIBRINOGENon 13-50-2592EFIOKHUBIE292 mg/jKGpqsog896-610Coa [facility] CenterComment on above:Order Comment: No: Do not add to previous draw Performed By: #### 22347, 39015, 43730, 44103 #### [facility] [address] [place] [address], USAMAGNESIUM BLOODon 94-82-9443Gzyrzdpts [Mass/Vol]2.1 mg/dL Normal1.9-2.7The [facility] Medical CenterComment on above:Order Comment: No: Do not add to previous drawPerformed By: #### 77219, 04449, 06644, 71727 #### [facility] [address] [place] [address], USAPHOSPHORUS BLOODon 45-33-1053Egpjxonpk [Mass/Vol]3.3 mg/dL Normal2.5-5.0The [facility] Medical CenterComment on above:Order Comment: No: Do not add to previous drawPerformed By: #### 77434, 69762, 84120, 07514 #### [facility] [address] [place] [address], USAPOC GLUCOSE LABon 89-88-8679Ummipoh [Mass/Vol]207 mg/dLHigh 70-100The [facility] CenterComment on above:Performed By: #### 92931, 63420, 39225, 62904 #### [facility] [address] [place] [address], USAGlucose [Mass/Vol]207 mg/xWZian43-348Dsv [facility] CenterComment on above:Performed By: #### 59541, 54018, 47631, 13030 #### [facility] [address] [place] [address], USAGlucose [Mass/Vol]171 mg/kOWrqq82-400Lnu [facility] CenterComment on above:Performed By: #### 18163, 33369, 29790, 93916 #### [facility] [address] [facility] [place] [address], USAPROTHROMBIN TIMEon 37-71-1917SUU Coag (PPP) [Relative time] 1.20 {INR}High0.91-1.16The [facility] Medical CenterComment on above: Order Comment: No: Do not add to previous drawResult Comment: ACCCP RECOMMENDED INR FOR WARFARIN THERAPY ------- CONDITION INR PROPHYLAXIS OF VENOUS THROMBOSIS 2-3 (HIGH-RISK SURGERY) TREATMENT OF VENOUS THROMBOSIS 2-3 TREATMENT OF PULMONARY EMBOLISM 2-3 PREVENTION OF SYSTEMIC EMBOLISM: 2-3 ACUTE MYOCARDIAL INFARCTION TISSUE HEART VALVES VALVULAR HEART DISEASE ATRIAL FIBRILLATION RECURRENT SYSTEMIC EMBOLISM MECHANICAL HEART VALVE 2.5-3.5 FROM: ORAL ANTICOAGULANTS. MECHANISM OF ACTION, CLINICAL EFFECTIVENESS, AND OPTIMAL THERAPEUTIC RANGE. CHEST 1995;108:231S-246S.Performed By: #### 00276, 36327, 35256, 35803 #### [facility] [address] [place] [id number], USAPT Coag (PPP) [Time]15.3 sHigh12.3-14.8The [facility]'s Medical CenterComment on above:Order Comment: No: Do not add to previous drawResult Comment: ALL RESULTS MUST BE INTERPRETED WITH RESPECT TO BLOOD DRAWING ARTIFACT OR DILUTION ERROR OF ANTICOAGULANT AT THE TIME OF SAMPLING.Performed By: #### 71770, 96424, 32229, 73634 #### [facility] [address] [place] [address], USATROPONIN-Ion 49-08-4058Xjqxswis I.cardiac [Mass/Vol]0.22 ng/mLCritically high0.00-0.04The [facility] Medical CenterComment on above:Order Comment: No: Do not add to previous drawResult Comment: M-PREVIOUS CRITICAL RESULT REFERENCE RANGES: 0.00 - 0.04 ng/ml NORMAL 0.05 - 0.50 ng/ml INDETERMINATE > 0.50 ng/ml CONSISTENT WITH AN M.I.Performed By: #### 86774, 77006, 10796, 64521 #### [facility] [address] [facility] [place] [address], USATYPE AND SCREENon [id number] INTERPRETATIONONoHolzer Health SystemComment on above:Performed By: #### 91227, 22783, 33192, 29248 #### [facility] [address] [facility] [place] [address], USARH INTERPRETATIONPositiveNoHolzer Health SystemComment on above:Performed By: #### 57872, 03171, 30949, 03104 #### [facility] [address] [facility] [place] [address], USAUFH HEPARIN ASSAYon 70-37-8776ZGIMKTPTXQHYBC HEPARIN<0.10 Critically low0.30-0.70The [facility] Medical CenterComment on above: Result Comment: Rivaroxaban and Apixaban will interfere with the anti Xa assay used to monitor UFH and LMWH. RESULTS CHECKED AND CALLED. ACCURATELY READ BACK BY TAYE MEYERS RN @ 2206Performed By: #### 32151, 82883, 09476, 80389 #### [facility] [address] [place] [address], USAUNFRACTIONATED HEPARIN<0.10Critically low0.30-0.70The [facility] Medical CenterComment on above:Order Comment: No: Do not add to previous drawResult Comment: Rivaroxaban and Apixaban will interfere with the anti Xa assay used to monitor UFH and LMWH. RESULTS CHECKED AND CALLED. ACCURATELY READ BACK BY LISA VALENTE RN @ 1709Performed By: #### 08917, 55504, 90791, 39007 #### [facility] [address] [place] [address], USAUNFRACTIONATED HEPARIN0.20 IU/mLLow0.30-0.70The [facility] Medical CenterComment on above:Result Comment: Rivaroxaban and Apixaban will interfere with the anti Xa assay used to monitor UFH and LMWH.Performed By: #### 04783, 40820, 24393, 85939 #### [facility] [address] [facility] [place] [address], USAAPTTon 30-64-7606cUFO Coag (Bld) [Time]65.5 sHigh25.0-35.0 The [facility]'s Medical CenterComment on above:Result Comment: ALL RESULTS MUST BE INTERPRETED WITH RESPECT TO BLOOD DRAWING ARTIFACT OR DILUTION ERROR OF ANTICOAGULANT AT THE TIME OF SAMPLING. THE APTT SHOULD NOT BE USED TO MONITOR UNFRACTIONATED HEPARIN THERAPY, THIS LABORATORY NO LONGER HAS AN ESTABLISHED THERAPEUTIC RANGE BASED ON THE APTT. IT IS RECOMMENDED THAT THE UFH - HEPARIN ASSAY (ANTI-XA ACTIVITY) BE USED FOR THIS PURPOSE.Performed By: #### 56024, 42971, 71355, 17085 #### [facility] [address] [place] [address], USABASIC METABOLIC PANELon 14-33-1088Ddaqwra [Mass/Vol]9.3 mg/dLNormal8.6-10.3The [facility] Medical CenterComment on above:Order Comment: No: Do not add to previous drawPerformed By: #### 86907, 49950, 16493, 85026 #### [facility] [address] [place] [address], USAChloride [Moles/Vol]104 mmol/YCwjmtq13-819Ylz [facility] CenterComment on above:Order Comment: No: Do not add to previous drawPerformed By: #### 67119, 02320, 08213, 22883 #### [facility] [address] [place] [address], USACO2 [Moles/Vol]21 mmol/UEjjwwy88-91Vow [facility] CenterComment on above:Order Comment: No: Do not add to previous draw Performed By: #### 94723, 46473, 32250, 01059 #### [facility] [address] [place] [address], USACreatinine [Mass/Vol]1.29 mg/dLNormal0.70-1.30The [facility] Medical CenterComment on above:Order Comment: No: Do not add to previous drawPerformed By: #### 31892, 23907, 53159, 40867 #### [facility] [address] [place] [address], USAGFR/1.73 sq M predicted among blacks MDRD (S/P/Bld) [Vol rate/Area]mL/min/{1.73_m2}Normal>60The [facility] Comment on above:Order Comment: No: Do not add to previous drawResult Comment: Calculation may not be valid for patients over 70 yearsPerformed By: #### 32440, 59303, 38651, 75220 #### [facility] [address] [place] [address], USAGFR/1.73 sq M predicted among non-blacks MDRD (S/P/Bld) [Vol rate/Area]55 ml/min/1.73sq mAbnormal>60The [facility] Medical CenterComment on above:Order Comment: No: Do not add to previous drawResult Comment: Calculation may not be valid for patients over 70 yearsPerformed By: #### 71563, 18883, 07332, 57394 #### [facility] [address] [place] [address], USAGlucose [Mass/Vol]173 mg/wMFnab29-930Yvb [facility] CenterComment on above:Order Comment: No: Do not add to previous drawPerformed By: #### 73427, 86690, 17542, 42573 #### [facility] [address] [place] [address], USAPotassium [Moles/Vol]4.6 mmol/LNormal3.5-5.1The [facility] Medical CenterComment on above:Order Comment: No: Do not add to previous drawPerformed By: #### 56980, 69464, 86406, 96821 #### [facility] [address] [place] [address], USASodium [Moles/Vol]136 mmol/MDymtoj425-109Cus [facility] CenterComment on above:Order Comment: No: Do not add to previous drawPerformed By: #### 21690, 15599, 87412, 12980 #### [facility] [address] [place] [address], USAUrea nitrogen [Mass/Vol]24 mg/dLNormal7-25The [facility] Medical CenterComment on above:Order Comment: No: Do not add to previous drawPerformed By: #### 87137, 06978, 58000, 62509 #### [facility] [address] [facility] [place] [address], USABNP (B-TYPE NATRIURETIC PEPTIDE)on 67-35-8994Brbapdimfua peptide B (Bld) [Mass/Vol]430 pg/mLHigh0-100The [facility] Medical CenterComment on above:Order Comment: Yes: Add to Previous draw if ableResult Comment: Given the appropriate clinical setting a BNP result of >100 pg/mL indicates congestive heart failure.Performed By: #### 42082, 74388, 69228, 68516 #### [facility] [address] [place] [address], USACARDIAC MAGNESIUM BLOODon 94-61-4704Zpnwpuchs [Mass/Vol]2.2 mg/dLNormal1.9-2.7The [facility] Medical CenterComment on above: Performed By: #### 06368, 51783, 79330, 32224 #### [facility] [address] [place] [address], USACBC COMPLETE BLOOD COUNTon 95-35-6488Dimhufsarel distribution width (RBC) [Ratio]14.3 %Udclmv36.5-15.0The [facility] Medical CenterComment on above:Order Comment: No: Do not add to previous draw Performed By: #### 48570 #### [facility] [address] [place] [address], USAHematocrit (Bld) [Volume fraction]47.4 %Vrptqf47.0-50.0The [facility] Medical CenterComment on above:Order Comment: No: Do not add to previous drawPerformed By: #### 75251 #### [facility] [address] [place] [address], USAHemoglobin (Bld) [Mass/Vol]15.3 g/dXKkdoba11.0-17.0The [facility] Medical CenterComment on above:Order Comment: No: Do not add to previous drawPerformed By: #### 49504 #### [facility] [address] [place] [address], [facility] MEDICAL CENTERMCH (RBC) [Entitic mass]29.0 pgWxwfma95.0-33.0The [facility] Medical CenterComment on above:Order Comment: No: Do not add to previous drawPerformed By: #### 10012 #### [facility] [address] [place] [address], USAMCHC (RBC) [Mass/Vol]32.3 g/fZLhtyfc75.0-35.0The [facility] Medical CenterComment on above:Order Comment: No: Do not add to previous drawPerformed By: #### 22140 #### [facility] [address] [place] [address], USAMCV (RBC) [Entitic vol]89.8 oMNkgfdj40.0-98.0The [facility] Medical CenterComment on above:Order Comment: No: Do not add to previous drawPerformed By: #### 66957 #### [facility] [address] [place] [address], USANucleated RBC/100 WBC (Bld) [Ratio]0 %Normal0-0The [facility] Medical CenterComment on above:Order Comment: No: Do not add to previous drawPerformed By: #### 74414 #### [facility] [address] [place] [address], USAPLAT RJL895 10*3/nJHwudjn184-332Shv [facility] CenterComment on above:Order Comment: No: Do not add to previous draw Performed By: #### 92384 #### [facility] [address] [place] [address], USARBC (Bld) [#/Vol]5.28 10*6/uLNormal4.20-5.70The [facility] Medical CenterComment on above:Order Comment: No: Do not add to previous drawPerformed By: #### 17279 #### [facility] [address] [place] [address], USAWBC (Bld) [#/Vol]10.80 10*3/uLHigh4.00-10.60The [facility] Medical CenterComment on above:Order Comment: No: Do not add to previous drawPerformed By: #### 19043 #### [facility] [address] [place] [address], USAD DIMER TESTon 27-90-2862C-DIMER TEST10.95 mcg/mL FEUHigh 0.01-0.49The [facility] Medical CenterComment on above:Order Comment: No: Do not add to previous drawResult Comment: D-Dimer values of less than 0.50 ug/ml (FEU) are considered to be a negative predictor of thrombosis. However, the D-Dimer result should be used in conjunction with pretest probability and should not be used alone to diagnose a thrombotic event. D-DIMER RESULT REPEATED AND CONFIRMEDPerformed By: #### 77827, 74691, 86157, 29364 #### [facility] [address] [place] [address], [facility] [facility]YSICIANS MEDICAL CENTERLACTATE BLOODon 04-33-2222Rmhqfei [Moles/Vol]1.6 mmol/L Normal0.5-2.2The [facility] Medical CenterComment on above:Order Comment: Yes: Add to Previous draw if ablePerformed By: #### 26312 #### [facility] [address] [place] [address], USAPHOSPHORUS BLOODon 44-99-3227Qjrpqcpjj [Mass/Vol]4.3 mg/dL Normal2.5-5.0The [facility] Medical CenterComment on above:Order Comment: No: Do not add to previous drawPerformed By: #### 97716, 20696, 83390, 49418 #### [facility] [address] [facility] [place] [address], [facility]ANS MEDICAL CENTERPROTHROMBIN TIMEon 33-28-4197VJK Coag (PPP) [Relative time] 1.23 {INR}High0.91-1.16The [facility] Medical CenterComment on above: Order Comment: No: Do not add to previous drawResult Comment: ACCCP RECOMMENDED INR FOR WARFARIN THERAPY ------- CONDITION INR PROPHYLAXIS OF VENOUS THROMBOSIS 2-3 (HIGH-RISK SURGERY) TREATMENT OF VENOUS THROMBOSIS 2-3 TREATMENT OF PULMONARY EMBOLISM 2-3 PREVENTION OF SYSTEMIC EMBOLISM: 2-3 ACUTE MYOCARDIAL INFARCTION TISSUE HEART VALVES VALVULAR HEART DISEASE ATRIAL FIBRILLATION RECURRENT SYSTEMIC EMBOLISM MECHANICAL HEART VALVE 2.5-3.5 FROM: ORAL ANTICOAGULANTS. MECHANISM OF ACTION, CLINICAL EFFECTIVENESS, AND OPTIMAL THERAPEUTIC RANGE. CHEST 1995;108:231S-246S.Performed By: #### 68757, 07712, 91173, 47755 #### [facility] [address] [place] [address], USAPT Coag (PPP) [Time]15.6 sHigh12.3-14.8The [facility] Medical CenterComment on above:Order Comment: No: Do not add to previous drawResult Comment: ALL RESULTS MUST BE INTERPRETED WITH RESPECT TO BLOOD DRAWING ARTIFACT OR DILUTION ERROR OF ANTICOAGULANT AT THE TIME OF SAMPLING.Performed By: #### 03511, 93173, 70772, 22246 #### [facility] [address] [place] [address], USATROPONIN-Ion 05-65-7339Cyfwzzxq I.cardiac [Mass/Vol]0.14 ng/mLCritically high0.00-0.04The [facility] Medical CenterComment on above:Result Comment: M-CRITICAL RESULT(S) REVIEWED, CALLED TO AND READ BACK BY TAYE MEYERS RN @0000 ON 06-01-19 M-TROPONIN INITIAL CRITICAL HIGH; RESPUN AND RETESTED REFERENCE RANGES: 0.00 - 0.04 ng/ml NORMAL 0.05 - 0.50 ng/ml INDETERMINATE > 0.50 ng/ml CONSISTENT WITH AN M.I.Performed By: #### 37271, 26759, 95796, 86331 #### [facility] [address] [facility] [place] [address], USAUFH HEPARIN ASSAYon 74-73-7952WIRKKGLEFMSAXO HEPARIN0.28 IU/mLLow0.30-0.70The [facility] Medical CenterComment on above:Result Comment: Rivaroxaban and Apixaban will interfere with the anti Xa assay used to monitor UFH and LMWH.Performed By: #### 61768, 21390, 04276, 34079 #### [place] [address] Vital Signs Date TimeVital SignValuePerforming NmzuipffjMmmaefnr31-42-1604 08:15-0400Body ovfaiv620.9 cmBenedict Vallecillo MD Work Phone: [facility] CenterZuqksmasph00-91-1660 08:15-0400Body mass index (BMI) [Ratio]31.46 kg/m2Benedict Vallecillo MD Work Phone: [facility] CenterVgjrzkrqun07-82-0464 08:15-0400Body temperature 97.5 [degF]Benedict Vallecillo MD Work Phone: [facility] CenterYbuaxyrihu11-23-7558 08:15-0400Body rmawru029.23 kgBenedict Vallecillo MD Work Phone: [facility] CenterGqvjsgwemk29-27-9736 08:15-0400Diastolic blood gjznmgbo40 mm[Hg]Benedict Vallecillo MD Work Phone: [facility] CenterOyorzbpobs60-05-0048 08:15-0400Heart ipgv730 /min Benedict Vallecillo MD Work Phone: [facility] CenterEzjlghvyse19-25-5034 08:15-0400Respiratory rate20 /minBenedict Vallecillo MD Work Phone: [facility] CenterPllkumavcv65-88-4824 08:15-4407ZpT2% (BldA) [Mass fraction]93 %Benedict Vallecillo MD Work Phone: [facility] CenterMdootltahs13-51-6028 08:15-0400Systolic blood wncgfagp668 mm[Hg]Benedict Vallecillo MD Work Phone: [facility] CenterOyiqepvznp46-96-3323 08:43-0500Body .9 cmKai Joshi DPM Work Phone: noFulton State HospitalSytdbprcpu00-96-7644 08:43-0500Body mass index (BMI) [Ratio]31.33 kg/h8JdjwxaaKia Joshi DPM Work Phone: [facility] CenterBafsjfggfe45-52-7333 08:43-0500Body ydwlyp314.78 kgKia Joshi DPM Work Phone: [facility] CenterPntmbgvqyw48-11-7805 11:38-0500Body .9 cmBenedict Vallecillo MD Work Phone: [facility] CenterZwdomyakkr21-84-6564 11:38-0500Body mass index (BMI) [Ratio]30.92 kg/m2Benedict Vallecillo MD Work Phone: [facility] CenterKjjgknnjdx36-44-2089 11:38-0500Body temperature 97.3 [degF]Benedict Vallecillo MD Work Phone: [facility] CenterMzmuvlsfcc92-04-0879 11:38-0500Body cebmhl575.42 kgBenedict Vallecillo MD Work Phone: [facility] CenterWenuxfjmme56-12-1664 11:38-0500Diastolic blood yygwbbjr27 mm[Hg]Benedict Vallecillo MD Work Phone: [facility] CenterSfphfvidnw18-96-0607 11:38-0500Heart rate89 /min Benedict Vallecillo MD Work Phone: [facility] CenterFpavusckaa31-31-8500 11:38-0500Respiratory rate20 /minBenedict Vallecillo MD Work Phone: [facility] CenterYnsziflyvb35-37-2257 11:38-2259KgN1% (BldA) [Mass fraction]96 %Benedict Vallecillo MD Work Phone: [facility] CenterNnfrcwuije12-95-8618 11:38-0500Systolic blood btdwgawc288 mm[Hg]Benedict Vallecillo MD Work Phone: [facility] CenterZikubxhefj69-58-7350 09:08-0400Body mowaas815.[address]03-21-2024 09:08-0400Body mass index (BMI) [Ratio] 31.06 kg/m[address]03-21-2024 09:08-0400Body qlaiip265.[address] [place], [place] 20[address]902-07-2024 08:24-0500Body nacteq829.9 cmJr. Stepanic DO Work Phone: noFulton State HospitalRlccdwjswc62-77-4917 08:24-0500Body mass index (BMI) [Ratio]32.82 kg/m2Jr. Stepanic DO Work Phone: [facility] CenterEkzrwzyhbz25-30-2504 08:24-0500Body cnaaec410.77 kgJr. Stepanic DO Work Phone: noFulton State HospitalCbnksikpcd60-50-9072 10:29-0500Body rcpato196.9 cmBenedict Vallecillo MD Work Phone: [facility] CenterAmmikiyeaz09-17-9971 10:29-0500Body mass index (BMI) [Ratio]33.36 kg/m2Benedict Vallecillo MD Work Phone: [facility] CenterQrhizlsrnl47-16-1757 10:29-0500Body temperature 97.11 [degF]Benedict Vallecillo MD Work Phone: [facility] CenterBahjnqqgvm52-43-2012 10:29-0500Body bfqzly503.58 kgBenedict Vallecillo MD Work Phone: noFulton State HospitalQivxdmasmn65-08-9351 10:29-0500Diastolic blood mm[Hg]Benedict Vallecillo MD Work Phone: [facility] CenterVkcqnujxao25-80-5714 10:29-0500Heart rate91 /min Benedict Vallecillo MD Work Phone: noFulton State HospitalDgcgaxnnte56-35-6543 10:29-5102SxY3% (BldA) [Mass fraction]97 %Benedict Vallecillo MD Work Phone: noFulton State HospitalZxyuniycju84-06-1685 10:29-0500Systolic blood mm[Hg]Benedict Vallecillo MD Work Phone: no[facility] Encounters Encounter DateEncounter TypeCare ProviderFacilityStart: 03-14-2025 End: 81-95-3892Hsccqn flowsheetBernice BRAND Work Phone: noms FB ORTHOPAEDICSStart: 03-14-2025 End: 08-95-0270Axbmnb flowsDash BRAND Work Phone: noms FB ORTHOPAEDICSStart: 03-14-2025 End: 90-28-2522Dwqfdt outpatient visit 15 minutesMajyoti BRAND Work Phone: noms FB ORTHOPAEDICSComment on above:Acute pain of left knee (Primary Dx); S/P TKR (total knee replacement), leftStart: 03-14-2025 End: 55-96-9437ghjhoinkpmQFCLHXY J MEYERNot AvailableStart: 02-02-2025 End: 73-30-3590pleglmcqnjNYGEKQI W CLARKENot AvailableStart: 01-17-2025 End: 41-49-2424Ffkyjlwub Result EncounterBenedict Vallecillo MD Work Phone: noms External Department UnsolicitedStart: 01-17-2025 End: 35-43-7505Rbqemperw Result EncounterBenedict Vallecillo MD Work Phone: noms External Department UnsolicitedStart: 01-16-2025 End: 26-96-1735Ppkagj Bill Vallecillo MD Work Phone: NOCK CWM FMStart: 01-16-2025 End: 09-15-4283Yxehhe Bill Vallecillo MD Work Phone: NONK CWM FMStart: 01-16-2025 End: 21-95-6603Zhxocx outpatient visit 25 minutesBenedict Vallecillo MD Work Phone: noms CWM FMComment on above:Type 2 diabetes mellitus with hyperglycemia, without long-term current use of insulin (CMS/HCC) (Primary Dx); Benign essential hypertension (CMS/HCC); Screening PSA (prostate specific antigen); Gouty arthritis; Primary osteoarthritis of left kneeStart: 01-16-2025 End: 19-09-3848eguzhiuypvGIJL NADERERNot AvailableStart: 01-02-2025 End: 85-17-5983Gbntkduun Result EncounterGeneric External Data ProviderNOMS External Department UnsolicitedStart: 01-02-2025 End: 28-37-8045Naxcywhvh Result EncounterGeneric External Data ProviderNOMS External Department UnsolicitedStart: 12-30-2024 End: 34-99-6676kafqeszrhkWXWGIB [facility] Start: 09-20-2024 End: 73-30-0832Xrozps flowsSuma Joshi DPM Work Phone: NOAZ PODIATRYStart: 09-20-2024 End: 89-09-4313Helvrp Navin Joshi DPM Work Phone: NOBO PODIATRYStart: 09-20-2024 End: 52-92-4526Ifnydb outpatient new 45 minutesKia Joshi DPM Work Phone: NOWH PODIATRYComment on above:Type II or unspecified type diabetes mellitus with neurological manifestations, not stated as uncontrolled(250.60) (CMS/HCC) (Primary Dx); Onychomycosis; Nail dystrophy; Venous insufficiency of both lower extremities; Pain in toes of both feetStart: 09-20-2024 End: 02-09-5585bfwmazvuzgNIEFNAD W CLARKENot AvailableStart: 07-19-2024 End: 73-18-5110Bjakjneaa Result EncounterBenedict Vallecillo MD Work Phone: noms External Department UnsolicitedStart: 07-19-2024 End: 01-38-6485Fjeuzoroo Result EncounterBenedict Vallecillo MD Work Phone: noms External Department UnsolicitedStart: 07-18-2024 End: 34-11-7175Peldvb Bill Vallecillo MD Work Phone: noms [facility] FMStart: 07-18-2024 End: 09-75-6292Rxttyn Bill Vallecillo MD Work Phone: noms [facility] FMStart: 07-18-2024 End: 83-95-8613Xwhxxmp encounter procedureBenedict Vallecillo MD Work Phone: [facility] Work Phone: Start: 07-18-2024 End: 99-08-2666Udxwxt follow up visit related to original Chris Vallecillo MD Work Phone: noms [facility] FMComment on above:Medicare annual wellness visit, subsequent (Primary Dx); Type 2 diabetes mellitus with hyperglycemia, without long-term current use of insulin ([facility]Start: 07-18-2024 End: 17-43-0433qaxtfbjtrqYDDS NADERERNot AvailableStart: 02-29-2024 End: 98-30-0148Vkqmjflpi Result EncounterGeneric External Data ProviderNOMS External Department UnsolicitedStart: 02-29-2024 End: 78-40-4928Boeszgoub Result EncounterGeneric External Data ProviderNOMS External Department UnsolicitedStart: 02-10-2024 End: 38-37-5710mfkufgpyunRZALKH [facility] Start: 12-29-2023 End: 64-77-5342lbqbmeieyyWSNNCN C STEPANIC [facility] HospitalStart: 12-22-2023 End: 73-62-3290xvppknpufyPDVEAZ C STEPANIC [facility] HospitalStart: 12-03-2023 End: 46-00-6513clnlnocejtNPJBDB C STEPANIC JRProMedica Ford[facility] HospitalStart: 68-71-6332Hlrqgyhcd for other preprocedural examinationGEORGE STEPANIC JR [facility] HospitalStart: 12-03-2023 End: 77-71-0507Ftdyscz encounter procedurePm Pre-Admission Testing 1PTriHealth - Pre AdmitComment on above:Preop examination (Primary Dx); Hypertension, unspecified type; Atrial fibrillation, unspecified type ([facility]-HCC); Type 2 diabetes mellitus without complication, unspecified whether terminal gauger insulin use ([facility]); Former smoker; Osteoarthritis of left knee, unspecified osteoarthritis type; Urinary frequencyStart: 12-03-2023 End: 49-47-3077Witgewspjlfwf examination done[address] Streettart: 86-58-3092Umrdw abstractingJr. Willie Woods DO Work Phone: noms [facility] ORTHOPAEDICSStart: 10-21-2023 End: 53-84-7372Dzyjlh outpatient visit 25 minutesJr. Willie Woods DO Work Phone: noms FB ORTHOPAEDICSComment on above:Acute pain of left kneeStart: 62-55-6107Zwuigi flowsChristopher Vallecillo MD Work Phone: noms CWM FMStart: 07-29-1803Gjplat Bill Vallecillo MD Work Phone: noms CWM FMStart: 86-62-2093Vrpicusur Result Encounter Benedict Vallecillo MD Work Phone: noms External Department UnsolicitedStart: 10-16-2023 End: 93-44-1960Jknywv outpatient visit 25 minutesBenedict Vallecillo MD Work Phone: noms CWM FMComment on above:Preop examination (Primary Dx); Primary osteoarthritis of left knee; Type 2 diabetes mellitus with hyperglycemia, without long-term current use of insulin ([facility]); Benign essential hypertension ([facility]); 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 coyote valley heart without angina pectoris ([facility]Start: 10-16-2023 End: 96-07-2021Mvpvhcsgtwklo examination doneBenedict Vallecillo MD Work Phone: [facility] Work Phone: Start: 11-13-2022 End: 33-17-9134fxayyfcbkcEOJuan FERNANDORFacility:E5Vtvhm: 05-15-2022 End: 11-25-6200rpgxjdiwmaGLJuan ABADacility:Q2Ittxo: 05-31-2019 End: 97-69-9556Ntngfufrqx and management of inpatientPROVIDER UNKNOWN Facility:[facility] Procedures DateProcedureProcedure DetailPerforming ClinicianStart: [id number] examination knee 1/ viewsMattvirgil Luna PA Work Phone: Start: [id number] MICROALB CREAT RATIO RANDOMBenedict Vallecillo MD Work Phone: Start: 00-41-1687WKL CBC WITH AUTO DIFFGeneric External Data ProviderStart: [id number] HEMOGLOBIN L2RJrrpBenedict Vallecillo MD Work Phone: Start: 03-69-5547AH ECHO DOPPLER COMPLETEGeneric External Data ProviderStart: 17-41-1319Reqpmjilyh examination knee 09/15 viewsJr. Willie Woods DO Work Phone: Start: 73-47-8207NVD HEMOGLOBIN K9UFvjeBenedict Vallecillo MD Work Phone: Start: 64-28-6640IBK screeningDR BENEDICT NADERERComment on above:Performed By: #### PSASC #### [facility] [address] [place] [address] Dr. Demetris AllredStart: 39-60-1878JEHNMFGW OF 1 COR ART WITH DRUG-ELUT INTRA, PERC APPROACHGEORGE V MOUKARBELStart: 43-72-8572GOGLPPNNCWL OF MULTIPLE CORONARY ARTERIES USING OTH CONTRASTGEORGE V MOUKARBELStart: 06-01-2019[object Object] PROVIDER UNKNOWNComment on above:Order Comment: No: Do not add to previous draw Performed By: #### [id number], [id number], [id number], [id number] #### [facility] [address] [place] [address], USAStart: 53-17-1641LBCKGPWLB OTH THROMBOLYTIC IN CENTRAL ART, PERCGEORGE V MOUKARBELStart: 92-02-4704WBQKEPD OF CARDIAC SAMPL \T\ PRESSURE, R HEART, PERC APPROACHGEORGE V MOUKARBELStart: 42-21-0254Vwcnpynf screenPROVIDER UNKNOWNComment on above:Performed By: #### [id number], [id number], 61889, 20759 #### [facility] [address] [place] [address], USAStart: 68-45-0303FZNJYPW OF INFUSION DEVICE FROM UPPER VEIN, FLIGHT SUPERINTENDENT APPROACHGEORGE V MOUKARBEL Plan of Treatment DateCare ActivityDetailAuthorStart: 03-14-2027 End: 80-64-8631Vtpocms encounter procedureNOMS SWS ORTHOStart: 11-04-3304Xqdfq screening for proteinDiabetes: Urine Protein ScreeningMOAB [facility]IONAL [facility] HealthcareStart: 07-25-2025 End: 48-10-2431Lavltxm encounter /11/2025 11:00 AM EST Office Visit [facility] [address] [place] [address] Benedict Vallecillo MD [address] [place] [address] [facility] FMStart: 11-04-2025Medicare Annual Wellness (AWV)Medicare Annual Wellness (AWV)NOM HealthcareStart: 66-26-6534Whjhlllia vaccinationNOME HealthcareStart: 03-14-2025 End: 69-96-1726Lpdvugq encounter procedureNOMS FB ORTHOPAEDICSComment on above: Acute pain of left knee (Primary Dx); S/P TKR (total knee replacement), leftStart: 02-02-2025 End: 65-98-0106Kiciems encounter vmnjgydke75/22/2025 8:45 AM EDT Office Visit [facility] [address] [place] [address] Kia Joshi, DPM [address] [place] [address] [facility] PODIATRYStart: 01-16-2025 End: 21-90-7461Lmhchltuof A1c/Hemoglobin.total in BloodHemoglobin A1c Lab Routine Type 2 diabetes mellitus with hyperglycemia, without long-term current use of insulin ([facility] Expected: 01/16/2025 (Approximate), Expires: 01/16/2026 [facility] Work Phone: Comment on above:Expected: 01/16/2025 (Approximate), Expires: 01/16/2026Start: 01-16-2025 End: 24-37-7506Usbkcyfoigpl/Creatinine panel in random UrineMicroalbumin / creatinine, urine ratio Lab Routine Type 2 diabetes mellitus with hyperglycemia, without long-term current use of insulin ([facility]) Expected: 01/16/2025 (Approximate), Expires: 01/16/2026NOME HealthcareComment on above:Expected: 01/16/2025 (Approximate), Expires: 01/16/2026Start: 01-16-2025 End: 29-51-4976Vytllemw specific Ag [Mass/volume] in Serum or PlasmaPSA Lab Routine Screening PSA (prostate specific antigen) Expected: 01/16/2025 (Approximate), Expires: 01/16/2026NOME HealthcareComment on above:Expected: 01/16/2025 (Approximate), Expires: 01/16/2026Start: 01-16-2025 End: 31-49-4830Zvxbren encounter procedureNOCARNEGIE [facility] [place] FMComment on above:Arrived Start: 99-48-5081Pfmet screening for proteinDiabetes: Urine Protein Screening [facility] HealthcareStart: 90-67-0599Bqeaw BMI ScreeningAdult BMI ScreeningProSycamore Medical Center SystemStart: 67-65-0938Fafshii ScreeningTobacco ScreeningProSycamore Medical Center SystemStart: 09-20-2024 End: 97-21-3592Guzgegd encounter ioawbnhpl94/07/2025 9:00 AM EST Office Visit [facility] [address] [place] [address] Kia Joshi, DPM [address] [place] [address] ArrivedNOMADISON MEDICAL [facility]ENTER PODIATRYComment on above:ArrivedStart: 07-18-2024 End: 10-29-6747Ugwzuplfmm A1c/Hemoglobin.total in BloodHemoglobin A1c Lab Routine Type 2 diabetes mellitus with hyperglycemia, without long-term current use of insulin ([facility]) Expected: 07/18/2024 (Approximate), Expires: 07/18/2025 [facility] Work Phone: Comment on above:Expected: 07/18/2024 (Approximate), Expires: 07/18/2025Start: 07-18-2024 End: 41-96-0378Ackkdoe encounter ljmcfzydz98/04/2024 11:30 AM EST [facility] [address] [place] [address] Benedict Vallecillo MD [address] [place] [address] ArrivedSHARP [facility]ORIAL [facility] FMComment on above:ArrivedStart: 10-31-2024Medicare Annual Wellness (AWV)Medicare Annual Wellness (AWV)[facility] HealthcareStart: 06-12-2024 Hemoglobin A1c measurementDiabetes: Hemoglobin B1DRANE HealthcareStart: 86-62-8840Cgmxdnwws vaccinationInfluenza Vaccine (#1)[facility] HealthcareStart: 73-64-8139Jnlbyzwoxd A1c measurementDiabetes: Hemoglobin R0TDJKWWestern Missouri Medical Center Start: 20-39-6845Plcpdyws screeningDiabetes: Retinopathy ScreeningMOAB REGIONAL [facility]OSPITAL HealthcareStart: 01-13-2024 End: 23-26-0805Voxxray encounter yhivbloar30/01/2024 9:00 AM EDT Office Visit [facility] [address] [place] [address] Benedict Vallecillo MD [address] [place] [phone] [facility] FMStart: 12-29-2023 End: 07-02-7537Lpdzvpfle to same day surgery ncjdbf1312/29/2023 7:45 AM EDT - 12/29/2023 11:00 AM EDT Surgery [facility] - Surgery [address] [place] [address] Willie Woods Jr., DO [address] [facility] [address] [place] [address] REPLACEMENT TOTAL JOINT KNEE [14715 (CPT )][facility] HospitalComment on above:REPLACEMENT TOTAL JOINT KNEE [88168 (CPT )] Start: 12-29-2023 End: 20-11-1516Tswusr kne condyle&platu medial&lat compartmentsREPLACEMENT TOTAL JOINT KNEE left knee degenerative joint disease 12/29/2023 7:45 AM EDTFREMONT SURGERYStart: 76-11-1640Epicwaqiet hospital visit by xstwogbbp29/16/2024 7:45 AM EDT Hospital Encounter [facility] Surgery [address] [place] [address] Willie Woods Jr., DO [address] [facility] [address] [place] [address] [facility]: 12-21-2023 End: 10-48-1693Mylirnjygk RBCCrossmatch RBC Blood Bank Routine Preop examination Hypertension, unspecified type Atrial fibrillation, unspecified type ([facility]) Type 2 diabetes mellitus without complication, unspecified whether terminal gauger insulin use ([facility]) Former smoker Osteoarthritis of left knee, unspecified osteoarthritistype Urinary frequency Expected: 12/21/2023, Expires: 11/26/2024 [facility] HospitalComment on above:Expected: 12/21/2023, Expires: 11/26/2024Start: 12-21-2023 End: 28-84-2521Pzfn and screen(includes indirect olivia)Type and screen(includes indirect olivia) Blood Bank Routine Preop examination Hypertension, unspecified type Atrial fibrillation, unspecified type ([facility]) Type 2 diabetes mellitus without complication, unspecified whether terminal gauger insulin use ([facility] Former smoker Osteoarthritis of left knee,unspecified osteoarthritis type Urinary frequency Expected: 12/21/2023, Expires: 11/26/2024[facility] Comment on above:Expected: 12/21/2023, Expires: 11/26/2024Start: 12-03-2023 End: 77-92-9542FUU 12 leadECG 12 lead ECG Routine Preop examination Hypertension, unspecified type Atrial fibrillation, unspecified type ([facility]) Type 2 diabetes mellitus without complication, unspecified whether terminal gauger in sulin use ([facility]) Former smoker Osteoarthritis of left knee, unspecified osteoarthritis type Urinary frequency Expected: 12/03/2023, Expires: 11/26/2024 [facility] HospitalComment on above:Expected: 12/03/2023, Expires: 11/26/2024Start: 12-03-2023 End: 61-66-4138CF Femur and Tibia Views for leg lengthProCoosa Valley Medical Center Work Phone: Comment on above:Expected: 12/03/2023, Expires: 11/26/2024Start: 90-25-8913Vibyk screening for proteinDiabetes: Urine Protein ScreeningWestern Missouri Medical CenterStart: 10-21-2023 End: 96-45-0133Oufdgsu encounter epemttbgg12/07/2024 8:30 AM EST Office Visit [facility] [address] [place] [address] Jr. Willie Woods, DO [address] [address] [facility]OPAEDICSStart: 10-16-2023 End: 14-12-5716Idkxzmgqwz A1c measurementHemoglobin A1c Lab Routine Type 2 diabetes mellitus with hyperglycemia, without long-term current use of insulin ([facility]) Expected: 10/16/2023 (Approximate), Expires: 10/16/2024[facility] Work Phone: Comment on above:Expected: 10/16/2023 (Approximate), Expires: 10/16/2024Start: 10-16-2023 End: 97-18-7768Pernmtq encounter givphawdz32/02/2024 10:30 AM EST Consult [facility] [address] [place] [address] Benedict Vallecillo MD [address] [place] [address] [facility] FMComment on above:ArrivedStart: 88-95-6715Fwslsruseovl Vaccine: 65+ Years (2 - PCV)Pneumococcal Vaccine: 65+ Years (2 - PCV)[facility] Healthcare Start: 07-72-6262Wpgkabyhlipk Vaccine: 65+ Years (2 of 2 - PCV)Pneumococcal Vaccine: 65+ Years (2 of 2 - PCV)[facility] HealthcareStart: 29-15-4420Fxdb Risk ScreeningFall Risk ScreeningProBellevue Hospitaltart: 1996 Administration of varicella zoster vaccineZoster (Shingles) Vaccine (1 of 2) [facility]: 44-78-2393KGyS,Tdap and Td Vaccines (1 - Tdap) DTaP,Tdap and Td Vaccines (1 - Tdap)[facility] SystemStart: 1965 Urine screening for proteinDiabetes: Urine Protein ScreeningMO[facility] REGIONAL [facility]ITAL Healthcare Start: 81-30-9085Nvrts BMI Follow Up PlanAdult BMI Follow Up PlanProBellevue Hospitaltart: 91-15-6001Yepuqitxpk ScreeningDepression ScreeningSelect Specialty Hospital - Greensborotart: 82-02-2248Wuccetfd screeningDiabetes: Retinopathy Screening [facility] HealthcareStart: 18-16-5767Aebbcojlwt A1c measurementDiabetes: Hemoglobin P8UULMG HealthcareStart: 1946Medicare Annual Wellness (AWV)Medicare Annual Wellness (AWV)[facility] HealthcareStart: 1946Medicare Annual Wellness Visit Medicare Annual Wellness VisitGood Samaritan HospitalAlanine aminotransferase [Enzymatic activity/volume] in Serum or PlasmaALT Lab Routine Onychomycosis Ordered: 09/20/2024[facility] HealthcareComment on above:Ordered: 09/20/2024lkaline phosphatase [Enzymatic activity/volume] in Serum or PlasmaAlkaline phosphatase Lab Routine Onychomycosis Ordered: 09/20/2024[facility] Work Phone: Comment on above:Ordered: 09/20/2024spartate aminotransferase [Enzymatic activity/volume] in Serum or PlasmaAST Lab Routine Onychomycosis Ordered: 09/20/2024[facility] HealthcareComment on above:Ordered: 09/20/2024 Immunizations Immunization DateImmunizationNotesCare IsoivfdjRxejtmmr13-61-3302ziykwoeua virus vaccine, unspecified formulationBernice BRAND Work Phone: [facility] CenterQokctygziz31-54-4982zhiyeztze virus vaccine, unspecified formulationBenedict Vallecillo MD Work Phone: noFulton State HospitalQsctueafhe61-18-4832Ifoijcwwf, High-dose Seasonal, Quadrivalent, Preservative FreeBenedict Vallecillo MD Work Phone: [facility] CenterDbtkhxxoxw21-60-7134Stlqshj Bivalent Booster VaccinationBenedict Vallecillo MD Work Phone: [facility] CenterEjdtkowaue33-07-1002EGPTZ-63, mRNA, LNP-S, PF, 30mcg/0.3mL DosePmh [address] [place], [place] [address]-20-2021COVID-19, mRNA, LNP-S, PF, 30mcg/0.3mL DosePmh [address] [place], [place] [address]Vnlzxd75-88-9104dmdavygoivuc polysaccharide vaccine, 23 valentBenedict Vallecillo MD Work Phone: [facility] Healthcare Payers DatePayer CategoryPayerPolicy [id number] Health [id number] Cross Blue [id number] [id number] 2011Medicare [id number] [id number] 1960 [id number] 2.16.840.1.183352.3.57[id number] 2.16840.1.750530.3.57[id number] 2.16840.1.710512.3.57[id number] 2.16840.1.868247.3.57[id number] 2.16840.1.958431.3.579.[id number] 2.16840.1.138341.3.579.[id number] 2.16840.1.476549.3.57[id number] 2.16840.1.051370.3.579.[id number] 2.16840.1.701111.3.57[id number] 2.16840.1.037641.3.579.[id number] 2.16840.1.425764.3.579.2.5[id number] 2.16840.1.593519.3.57[id number] 2.16840.1.241913.3.579.2.[id number] 2..0.1.878234.3.579.2.[id number] 2..0.1.735499.3.579.2.819217-52-9641Etduhjd9721385 2..0.1.215795.3.579.[id number] 2..840.1.655550.3.579.2.1259 Social History DateTypeDetailFacilityStart: 04-22-2023 End: 33-39-2106Ofelubp smoking status NHISEx-smokerNOMS Healthcare End: 94-26-6820Pxmvpch of tobacco useCurrent smokerNOMS Healthcare End: 31-51-3537Igpotfg of tobacco useCigarette SmokerNOMS HealthcareStart: 10-10-2023 End: 66-27-8965Ytajozz intakeCurrent drinker of alcohol (finding)[facility] Start: 10-09-2023 End: 01-98-1343Bkffhia of Social functionNOMS HealthcareStart: 10-09-2023 End: 95-61-0796Zyymdqbisap, Afraid, Rape, and Kick questionnaire [HARK][facility] HealthcareWithin the last year, have you been afraid of your partner or ex-partner?NoNOMS HealthcareDo you belong to any clubs or organizations such as mormon groups, unions, fraternal or athletic groups, or school groups?YesNOMS HealthcareAre you now , , , , never or living with a partner?WidowedNOMS HealthcareHow often to you have a drink containing alcohol?2-3 time sa weekNOMS HealthcareHow many standard drinks containing alcohol do you have on a typical day?1 or 2NOMS HealthcareHow often do you have 6 or more drinks on 1 occasion?NeverNOMS HealthcareStart: 11-26-2022 How hard is it for you to pay for the very basics like food, housing, medical care, and heatingNot hard at allNOMS HealthcareDo you feel stress - tense, restless, nervous, or anxious, or unable to sleep at night because yourmind is troubled all the time - these days [OSQ]Not at allWestern [facility] Medical Center(I/We) worried whether (my/our) food would run out before (I/we) got money to buy more.Never [facility] ClevelandStart: 31-08-1953Dfn Assigned At [facility] Start: 65-10-1476Fjgavf identityIdentifies as male gender (finding)[facility] CenterStart: 16-33-1678Nciuxp orientationHeterosexual (finding)[facility] CenterStart: 10-16-2023 End: 45-45-9989Ibmsodp use and exposureSmokeless tobacco non-userWestern Missouri Medical Center Functional Status JezdKkrvlhhshoQmfbouXgawilmk53-26-7213Setmf score [AUDIT-C]3 01/09/2025 9:43 AM EDT Mychart, GenericWestern Missouri Medical CenterGzybmnudux61-11-7393Zox often do you have a drink containing alcohol?2-3 times a week 01/09/2025 9:43 AM EDT Mychart, Generic 2-3 times a weekWestern Missouri Medical CenterAdmsevewvt87-62-2084Juz many standard drinks containing alcohol do you have on a typical day?1 or 2 01/09/2025 9:43 AM EDT Mychart, Generic 1 or 2NOMS Bsgfbojqdl88-85-7034Drn often do you have 6 or more drinks on 1 occasion?Never 01/09/2025 9:43 AM EDT Mychart, Generic NeverWestern Missouri Medical Center 84-63-3919Tfelmnh Health Questionnaire 2 item (PHQ-2) [Reported][facility] Clinical Notes 11-06-2020 to 03-14-2025 Note Date & GuymJtsmVbnirutf19-29-8605 History of Present illness Narrative* SUNDAY [place] - 03/14/2025 8:00 AM EDT Images from the original note were not included. Orthopedic Office note: NAME: Serge Shine : 1945 EST PT S/P LT TKA 12/29/23 (~1 YR 2.5 MTHS) XRAY TODAY EPIC 7/1/25 XRAY LT KNEE EPIC 02/09/24 PT NOMKarma [place] DENIES PAIN OR SWELLING. KNEE IS FEELING GOOD- GOOD ROM- NO PAIN MEDS. RIDES BIKE DAILY. +ELIQUIS; ON PRIOR TO SURGERY Knee Musculoskeletal Exam Gait Gait is normal. Inspection Leg length disparity: no discrepancy Left Erythema: none Effusion: none Edema: mild Edema comment: chronic, dependent both lower legs at ankles. Ecchymosis: none Deformity: none Alignment: normal Previous incision: anterior Incision: well-healed Inspection additional comments: Healed abrasion left anterior knee. SLR intact. No s/s of infection. Palpation Left Left knee palpation is unremarkable. Increased warmth: none Masses: none Tenderness: none Range of Motion Left Left knee range of motion is normal and full. Active extension: 0 Passive extension: 0 Active flexion: 120 Passive flexion: 120 Strength Left Left knee strength is normal. Extension: 5/5. Flexion: 5/5. Instability Left Instability signs: none - stable Varus stress grade: normal Valgus stress grade: normal Neurovascular Left Left knee neurovascular exam is normal. Pulses - PT: normal Posterior tibial: 2+ Capillary refill: warm and well-perfused Special Signs Left Left knee special signs are normal. Patellar apprehension: none General Constitutional: appears stated age Labored breathing: no Psychiatric: normal mood and affect Neurological: alert Skin: intact Lymphadenopathy: none Orders Placed This Encounter Procedures XR knee 1 or 2 views left Reason for exam:: total Procedures Results - Imaging (X-rays of the left knee): - No evidence of fracture - No accelerated wear - No loosening of the prosthesis ICD-10-CM 1. Acute pain of left knee M25.562 XR knee 1 or 2 views left 2. S/P TKR (total knee replacement), left Z96.652 Assessment & Plan Left knee pain. He reports no pain in his replaced knee. X-rays were reviewed and showed no evidence of fracture. He had a fall with a healing abrasion noted on the anterior knee. There are no signs or symptoms of infection. The prosthesis shows no evidence of accelerated wear or loosening. Follow-up: Given his activities, a recheck in 2 years for surveillance x-rays is recommended. PROCEDURE Procedure Performed Left knee replacement Questions answered in laymen terms at the bedside. The diagnosis, home exercise plan and any ongoing restrictions/ recommendations reviewed. If unable to be reached in office, I recommend evaluation at nearest Emergency Room if any symptoms worsened or new symptoms develop for requiring urgent evaluation. Visit was preformed using i[employer]er Co-pilot submersible speech recognition. documented in this encounterWestern Missouri Medical CenterZgxzuzzbub66-20-4435 History of Present illness Narrative* Benedict Vallecillo MD - 01/16/2025 8:48 AM EDTAssociated Problem(s): Type 2 diabetes mellitus with hyperglycemia, without long-term current use of insulin (CMS/HCC) Reports BS controlled and due for A1C. Stick to ADA diet and limit carbs. * Benedict Vallecillo MD - 01/16/2025 8:47 AM EDTAssociated Problem(s): Osteoarthritis of knee Doing well after replacement and continue regular activity. * Benedict Vallecillo MD - 01/16/2025 8:47 AM EDTAssociated Problem(s): Gouty arthritis No flares and monitor. * Benedict Vallecillo MD - 01/16/2025 8:46 AM EDTAssociated Problem(s): Benign essential hypertension (CMS/HCC) BP typically controlled and monitor PRN. * Benedict Vallecillo MD - 01/16/2025 8:00 AM EDT Images from the original note were not included. Subjective Patient ID: Serge Shine is a 79 y.o. male who presents for Follow-up (6m). Follow up DM, HTN, gout, and OA knee. Patient feels well today. BS controlled around 115-125. [place] eat well and stick to ADA diet. Denies signs of elevated BS such as polyuria, polyphagia or polydipsia. Due for A1C. Checking BP PRN and typically controlled. BP slightly elevated today but was normal at cardiology last week. Taking medication daily and tolerating without side effects. Gout controlled and no joint pain or stiffness. No swelling or erythema. Left knee feels well after replacement. Mild pain but able to walk and stay active. Review of Systems Constitutional: Negative for fatigue. [...] Assessment/Plan Problem List Items Addressed This Visit Osteoarthritis of knee Doing well after replacement and continue regular activity. Benign essential hypertension (CMS/HCC) BP typically controlled and monitor PRN. Gouty arthritis No flares and monitor. Type 2 diabetes mellitus with hyperglycemia, without long-term current use of insulin (CMS/HCC) - Primary Reports BS controlled and due for A1C. Stick to ADA diet and limit carbs. Relevant Orders Hemoglobin A1c Microalbumin / creatinine, urine ratio Screening PSA (prostate specific antigen) Relevant Orders PSA documented in this encounterWestern Missouri Medical CenterHbdemtkdny23-19-5004 NoteUT Cardiology - [facility] Subjective Serge Shine is [...] man, who was admitted in 2019 to [facility] after an episode of cardiopulmonary arrest. He [...] was evaluated in the emergency room at [facility] because of vertigo. CT scan [...] creatinine 1.13, LFTs normal (more content not included)...[facility]01-07-2025 History of Present illness Narrative* Kia Joshi, DPM - 09/20/2024 9:00 AM EST Images from the original note were not included. Subjective Patient ID: Serge Shine is a 79 y.o. male who presents for Ingrown Toenail (Serge Shine 79yo New patient presents with BL great toe pain. Patient relates he has trouble reaching his toes to trim them. [id number] Vallecillo 07/18/2024 SS 12). [...] 1 tablet Orally two times daily, Disp: ,Rfl: Allergies Patient has no known allergies. Past Surgical History Past Surgical History: Procedure Laterality Date APPENDECTOMY 1949 A CHILD CARDIAC SURGERY 08/1995 Double bypass CARDIAC SURGERY 05/31/2019 Blood clots - lungs and stent at [facility] DENTAL SURGERY 08/2023 tooth pulled TONSILLECTOMY 1949 A CHILD TOTAL KNEE ARTHROPLASTY Right 12/29/2023 RT TKA- INDY TOTAL KNEE ARTHROPLASTY Left Family History Family [...] at IPJ, MPJ, medial malleolus, patella bilaterally [place] monofilament: intact at 10/10 sites Psychiatric: Mood and Affect: Mood normal. Behavior: Behavior normal. Assessment/Plan ICD-10-CM 1. Onychomycosis B35.1 Alkaline phosphatase ALT AST 2. Nail dystrophy L60.3 3. Type II or unspecified type diabetes mellitus with neurological manifestations, not stated as uncontrolled(250.60) (CMS/HCC) E11.49 4. Venous insufficiency of both lower [...] to refrain from going barefoot. Wear shoes atall times to help protect feet. Shoe gear should be inspected for any foreign objects. Shoes shouldhave a deep wide toe box. With any type of shoe, the feet should be inspected for any signs of pressure, i.e., redness, blistering, or open sores. Discussed treatment options of nail fungus: doing nothing vs topical anti fungal vs oral antifungalvs removal of entire nail or partial nail avulsion. Review that his poor vascular status would posea risk for nail procedures. I recommended we started with conservative care. Today I debrided the nails 1 through 10 in length and thickness with small nail Nipper and electronic bur. We reviewed medication options to treat the fungus and I removed the offending distal medial portion of debris fromthe left hallux nail. Patient felt symptomatic relief. To treat the fungus patient would like to try oral Lamisil. He states he would recent lab work done in [place] in July but is unsure if LFTs were checked. I explained 90 days of treatment and the need for LFT before filling the Rx. Order for LFT given to pt. Wait to hear about results before filling Rx. Potential side effects also discussed in detail. Explained liver metabolism. Pt understands fungus can recur. Medication may not work.All questions answered to their satisfaction. ERx Lamisil [...] understanding. Kia Joshi DPM documented in this encounterWestern Missouri Medical [id number] History of Present illness Narrative* Benedict Vallecillo MD - 07/18/2024 12:04 PM ESTAssociated Problem(s): Medicare annual wellness visit, subsequent Due for labs. Discussed proper diet and regular aerobic exercise. Need aerobic exercise 5-6 days a week for 30 minutes at a time. Smaller portions and limit total calories. Tetanus every 10 years. Advised not to smoke. * Benedict Vallecillo MD - 07/18/2024 11:30 AM EST Images from the original note were not [...] Advised not to smoke. 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 He [...] was evaluated in the emergency room at [facility] because of vertigo. CT scan [...] 20 mg tablet, lisinop (more content not included)...[facility]03-25-2024 NoteXR BONE LENGTH STUDY Bone length evaluation History: [...] The left lower extremity measures 93.3 cm. Degenerativechanges of the lumbar spine. Vascular calcifications. Impression: Degenerative changes with symmetric lung length and alignment. Finalized by Bud Alvarez MD on 12/07/2023 8:33 [facility] 12-03-2023 Instructions* Patient Instructions* Monae Cartwright RN - 12/03/2023 9:00 AM EDT Preoperative Education Checklist- General Surgery date: 12/29/23 Surgery time: 745a Arrival time: 610a Please come back to the hospital between 12/21/23-12/28/23Thursday-Thursday [id number]. Stop at the registration desk upon arrival. The lab will give you a green blood band, bring that back with you day of surgery. 1. Bring a photo ID and your insurance card with you the day of surgery. You will check in at the main lobby of the [facility]- registration desk is straight ahead as soon as you walk in. Tell them you are here for surgery. 2. If you have a Living Will/Durable Power of Sales Enablement Manager for Health Care that is not on [...] after you have bathed. 5. NO nail costa rican/acrylic on at least one finger. If you are having a hand, wrist or foot surgery then all nail costa rican and artificial/acrylic nails must be removed from [...] least 8 hours and marijuana for 24 hoursprior to arrival for your surgery. 16. If [...] please call the Preadmission Testing office at [phone], Mon.-Fri. 7 a.m.-3 p.m. Leave a voicemail [...] Stop taking 0 days prior to procedure wifoslxz-ddji-AX-calcium &mins (THERAGRAN-M) 9 mg iron-400 mcg tablet [...] after surgery- do not stop unless directed scot your physician. You may also be given [...] is normal. Call your doctor if you noticeany of the following: -Increased redness or hardening [...] water and pat the area dry with aclean towel. -No re-using wash cloths or towels; [...] appointment with your doctor. documented in this encounterOhio State Health SystemBabyJunk, Inc [facility] Medical [id number] History of Present illness Narrative* Jr. Willie Woods, DO - 10/21/2023 8:30 AM EST Images from the original note were not included. HISTORY OF PRESENT ILLNESS: EST PT Serge Shine is an 78 y.o. @ male. (EST PT; MOST RECENT VISIT WITH ANH) RECHECK LT KNEE PAIN-HERE TO DISCUSS POSSIBLE SURGERY- REPEAT XRAY TODAY LAST TX BY DR WOODS 07/22/23, LT TKA WAS DISCUSSED PT WAS CLEARED BY KVNG JOHNSON NP (AUTOMOBILE TECHNICIAN) 07/2023 PER PT CLEARED BY ALISE DENTIST [...] motion are affecting the patient's ability to sleepand activities of daily living and we have [...] motion are affecting the patient's ability to sleepand activities of daily living and we have [...] motion are affecting the patient's ability to sleepand activities of daily living and we have recommended surgical intervention. We will schedule for surgery pending cardiac clearance and dental clearance from [facility]. Patient requests outpatient surgery at [facility] Questions answered in laymen terms at the bedside. The diagnosis, home exercise plan and any ongoing restrictions/ recommendations reviewed. If unable to be reached in office, I recommend evaluation at nearest Emergency Room if any symptoms worsened or new symptoms develop for requiring urgent evaluation. BIJU Pugh documented in this encounterWestern Missouri Medical [id number] History of Present illness Narrative* Benedict Vallecillo MD - 10/16/2023 12:23 PM ESTAssociated Problem(s): Benign essential hypertension (CMS/HCC) BP typically controlled and monitor PRN. * Benedict Vallecillo MD - 10/16/2023 12:23 PM ESTAssociated Problem(s): 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 coyote valley heart without angina pectoris (CMS/HCC) No pain and follow up with cardiology. * Benedict Vallecillo MD - 10/16/2023 12:23 PM ESTAssociated Problem(s): Type 2 diabetes mellitus with hyperglycemia, without long-term current use of insulin (CMS/HCC) Not checking BS and due for A1C. Stick to ADA diet and limit carbs. * Benedict Vallecillo MD - 10/16/2023 12:22 PM ESTAssociated Problem(s): Primary osteoarthritis of left knee Increased pain and unsteadiness. Follow up with ortho for surgery. * Benedict Vallecillo MD - 10/16/2023 12:22 PM ESTAssociated Problem(s): Preop examination Able to proceed with upcoming surgery at low to intermediate risk for complications. History of CADand cleared by cardiology. History of DM and HTN that are typically controlled with medication. Nothaving chest pain or palpitations. Recommend routine PAT. * Benedict Vallecillo MD - 10/16/2023 10:30 AM EST Subjective Patient ID: Serge Shine is a 78 y.o. male who presents for Follow-up (Surgical clearance). Presents for preoperative evaluation. Severe OA in left knee and getting worse. Increased pain withwalking and standing. Knee starting to give out [...] Addressed This Visit 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 coyote valley heart without angina pectoris (CMS/HCC) No pain [...] palpitations. Recommend routine PAT. documented in this encounterWestern Missouri Medical [id number] NotePatient Outreach (COVAMN) SERGE SHINE ([id number]) 1945 M Date Time Provider Department 11/06/20 GE GARCIA During your visit today, we recorded the following information about you: Allergies As of Date: 11/06/2020 (No Known Allergies) Date Reviewed: 06/16/2019 Reviewed by: Sudha Cartagena - Fully Assessed Order(s):SARS-COVID VACCINE 1ST DOSE APPT [[id number]] Order #: [id number] FUTURE Prescriptions as of 11/06/2020 Sig: ASPIRIN [...] 11/06/2020 (None) Letter Text Encounter Status:Closed by DUGLAS GARCIA on 11/09/20[facility] Evaluation note* Diagnosis Preop examination- Primary Unspecified pre-operative examination Primary osteoarthritis of left knee Type 2 diabetes mellitus with hyperglycemia, without long-term current use of insulin (CMS/HCC) Benign essential hypertension (CMS/HCC) Essential hypertension, benign 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 coyote valley heart without angina pectoris (CMS/HCC) documented in this encounter [facility] HealthcareEvaluation note* Diagnosis Acute pain of left knee documented in this encounter [facility] HealthcareEvaluation note* Diagnosis Preop examination- Primary Unspecified pre-operative examination Primary osteoarthritis of left knee Type 2 diabetes mellitus with hyperglycemia, without long-term current use of insulin (CMS/HCC) Benign essential hypertension (CMS/HCC) Essential hypertension, benign 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 coyote valley heart without angina pectoris (CMS/HCC) Primary osteoarthritis of left knee- Primary Preop examination Unspecified pre-operative examination Type 2 diabetes mellitus with hyperglycemia, without long-term current use of insulin (CMS/HCC) Benign essential hypertension (CMS/HCC) Essential hypertension, benign Gouty arthritis Gouty arthropathy, unspecified PVD (peripheral vascular disease) (CMS/HCC) Unspecified peripheral vascular disease Mixed hyperlipidemia ([facility]) Mixed hyperlipidemia Encounter for long-term (current) use of medications Encounter for long-term (current) use of other medications Obesity (BMI 30-39.9) Screening PSA (prostate specific antigen) Special screening for malignant neoplasm of prostate 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 coyote valley heart without angina pectoris (CMS/HCC) Type 2 diabetes mellitus with diabetic peripheral angiopathy without gangrene, without long-term current use of insulin (CMS/HCC) Type 2 diabetes mellitus with other specified complication, without long-term current use of insulin ([facility]/HCC) Medicare annual wellness visit, subsequent- Primary Type 2 diabetes mellitus with hyperglycemia, without long-term current use of insulin ([facility]/HCC) documented in this encounter [facility] HealthcareEvaluation note* Diagnosis Preop examination- Primary Unspecified pre-operative examination Primary osteoarthritis of left knee Type 2 diabetes mellitus with hyperglycemia, without long-term current use of insulin (CMS/[facility]) Benign essential hypertension ([facility]) Essential hypertension, benign 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 coyote valley heart without angina pectoris ([facility]) Primary osteoarthritis of left knee- Primary Preop examination Unspecified pre-operative examination Type 2 diabetes mellitus with hyperglycemia, without long-term current use of insulin ([facility]) Benign essential hypertension ([facility]) Essential hypertension, benign Gouty arthritis Gouty arthropathy, unspecified PVD (peripheral vascular disease) ([facility]) Unspecified peripheral vascular disease Mixed hyperlipidemia ([facility]) Mixed hyperlipidemia Encounter for long-term (current) use of medications Encounter for long-term (current) use of other medications Obesity (BMI 30-39.9) Screening PSA (prostate specific antigen) Special screening for malignant neoplasm of prostate 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 coyote valley heart without angina pectoris ([facility]) Type 2 diabetes mellitus with diabetic peripheral angiopathy without gangrene, without long-term current use of insulin ([facility]) Type 2 diabetes mellitus with other specified complication, without long-term current use of insulin ([facility]) Medicare annual wellness visit, subsequent- Primary Type 2 diabetes mellitus with hyperglycemia, without long-term current use of insulin ([facility]) Type II or unspecified type diabetes mellitus with neurological manifestations, not stated as uncontrolled(250.60) ([facility])- Primary Type II or unspecified type diabetes mellitus with neurological manifestations, not stated as uncontrolled Onychomycosis Dermatophytosis of nail Nail dystrophy Other specified disease of nail Venous insufficiency of both lower extremities Pain in toes of both feet documented in this encounter [facility] HealthcareEvaluation note* Diagnosis Preop examination- Primary Unspecified pre-operative examination Hypertension, unspecified type Atrial fibrillation, unspecified type ([facility]) Type 2 diabetes mellitus without complication, unspecified whether terminal gauger insulin use ([facility]) Former smoker Personal history of tobacco use, presenting hazards to health Osteoarthritis of left knee, unspecified osteoarthritis type Urinary frequency Preop examination Unspecified pre-operative examination Hypertension, unspecified type Atrial fibrillation, unspecified type ([facility]) Type 2 diabetes mellitus without complication, unspecified whether terminal gauger insulin use ([facility]) Former smoker Personal history of tobacco use, presenting hazards to health Osteoarthritis of left knee, unspecified osteoarthritis type Urinary frequency [facility] Diagnosis Preop examination- Primary Unspecified pre-operative examination Primary osteoarthritis of left knee Type 2 diabetes mellitus with hyperglycemia, without long-term current use of insulin (CMS/HCC) Benign essential hypertension (CMS/HCC) Essential hypertension, benign 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 coyote valley heart without angina pectoris (CMS/HCC) Primary osteoarthritis of left knee- Primary Preop examination Unspecified pre-operative examination Type 2 diabetes mellitus with hyperglycemia, without long-term current use of insulin (CMS/HCC) Benign essential hypertension (CMS/HCC) Essential hypertension, benign Gouty arthritis Gouty arthropathy, unspecified PVD (peripheral vascular disease) (CMS/HCC) Unspecified peripheral vascular disease Mixed hyperlipidemia ([facility]/HCC) Mixed hyperlipidemia Encounter for long-term (current) use of medications Encounter for long-term (current) use of other medications Obesity (BMI 30-39.9) Screening PSA (prostate specific antigen) Special screening for malignant neoplasm of prostate 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 coyote valley heart without angina pectoris (CMS/HCC) Type 2 diabetes mellitus with diabetic peripheral angiopathy without gangrene, without long-term current use of insulin ([facility]/HCC) Type 2 diabetes mellitus with other specified complication, without long-term current use of insulin Medicare annual wellness visit, subsequent- Primary Type 2 diabetes mellitus with hyperglycemia, without long-term current use of insulin ([facility]) Type 2 diabetes mellitus with hyperglycemia, without long-term current use of insulin ([facility]/HCC)- Primary Benign essential hypertension (CMS/HCC) Essential hypertension, benign Screening PSA (prostate specific antigen) Special screening for malignant neoplasm of prostate Gouty arthritis Gouty arthropathy, unspecified Primary osteoarthritis of left knee documented in this encounter [facility] HealthcareEvaluation note* Diagnosis Preop examination- Primary Unspecified pre-operative examination Primary osteoarthritis of left knee Type 2 diabetes mellitus with hyperglycemia, without long-term current use of insulin (HCC) Benign essential hypertension Essential hypertension, benign 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 coyote valley heart without angina pectoris Primary osteoarthritis of left knee- Primary Preop examination Unspecified pre-operative examination Type 2 diabetes mellitus with hyperglycemia, without long-term current use of insulin (HCC) Benign essential hypertension Essential hypertension, benign Gouty arthritis Gouty arthropathy, unspecified PVD (peripheral vascular disease) Unspecified peripheral vascular disease Mixed hyperlipidemia Mixed hyperlipidemia Encounter for long-term (current) use of medications Encounter for long-term (current) use of other medications Obesity (BMI 30-39.9) Screening PSA (prostate specific antigen) Special screening for malignant neoplasm of prostate 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 coyote valley heart without angina pectoris Type 2 diabetes mellitus with diabetic peripheral angiopathy without gangrene, without long-term current use of insulin (HCC) Type 2 diabetes mellitus with other specified complication, without long-term current use of insulin (HCC) Medicare annual wellness visit, subsequent- Primary Type 2 diabetes mellitus with hyperglycemia, without long-term current use of insulin (HCC) Type 2 diabetes mellitus with hyperglycemia, without long-term current use of insulin (HCC)- Primary Benign essential hypertension Essential hypertension, benign Screening PSA (prostate specific antigen) Special screening for malignant neoplasm of prostate Gouty arthritis Gouty arthropathy, unspecified Primary osteoarthritis of left knee Acute pain of left knee- Primary S/P TKR (total knee replacement), left documented in this encounter [facility] Summary [...] Records Found Hospital Course Note MR#: [id number] [facility] Pt. Name: Serge Shine Admitted: 05/31/2019 Discharged: [...] a 74-year-old male, who was transferred from [facility] on May 31, 2019 for [...] (more content not included)... Reason for Referral SpecialtyDiagnoses / ProceduresReferred By ContactReferred To Contact Diagnoses Preop examination Hypertension, unspecified type Atrial fibrillation, unspecified type ([facility]) Type 2 diabetes mellitus without complication, unspecified whether fci insulin use ([facility]) Former smoker Osteoarthritis of left knee, unspecified osteoarthritis type Urinary frequency Procedures ECG 12 lead Willie Woods Jr., DO [address] [facility] [address] [place] [address] Referral IDStatusReasonStart DateExpiration DateVisits RequestedVisits [id number] Additional Source Comments (unrecognized sect ion and content) No Status Records FoundNo Status Records FoundNo Status Records FoundNo Status Records FoundNo Status Records FoundNo Status Records Found INFORMATION SOURCE (unrecogn ized section and content) DATE CREATED AUTHOR 07/14/2019 [facility] DATE CREATED AUTHOR AUTHOR'S ORGANIZ ATION 10/24/2021 [facility] DATE CREATED AUTHOR AUTHOR'S ORGANIZ ATION 11/19/2022 [facility] DATE CREATED AUTHOR AUTHOR'S ORGANIZ ATION 01/06/2024 [facility] DATE CREATED AUTHOR AUTHOR'S ORGANIZ ATION 01/20/2025 [facility] DATE CREATED AUTHOR AUTHOR'S ORGANIZ ATION 03/19/2025 [facility] EPIC Care Teams (unrecognized sec tion and content) Team MemberRelationshipSpecialtyStart DateEnd Date Benedict Vallecillo MD [address] [place] [address] PCP - GeneralFamily Medicine10/05/23Team MemberRelationshipSpecialtyStart DateEnd Date Benedict Vallecillo MD [address] [place] [address] PCP - GeneralFamily Medicine10/05/23Team MemberRelationshipSpecialtyStart DateEnd Date Benedict Vallecillo MD [address] [place] [address] PCP - GeneralFamily Medicine10/05/23Team MemberRelationshipSpecialtyStart DateEnd Date Benedict Vallecillo MD [address] [place] [address] PCP - GeneralFamily Medicine10/05/23Team MemberRelationshipSpecialtyStart DateEnd Date Benedict Vallecillo MD [address] [place] [address] PCP - GeneralFamily Medicine10/05/23Team MemberRelationshipSpecialtyStart DateEnd Date Benedict Vallecillo MD [address] [place] [address] PCP - GeneralFamily Medicine10/05/23Team MemberRelationshipSpecialtyStart DateEnd Date Benedict Vallecillo MD [address] [place] [address] PCP - GeneralFamily Medicine10/05/23Team MemberRelationshipSpecialtyStart DateEnd Date Benedict Vallecillo MD [address] [place] [address] PCP - GeneralFamily Medicine10/05/23Team MemberRelationshipSpecialtyStart DateEnd Date Benedict Vallecillo MD [address] [place] [address] PCP - Generalmily Medicine10/05/23Team MemberRelationshipSpecialtyStart DateEnd Date Benedict Vallecillo MD [address] [place] [address] PCP - [facility]10/05/23 Benedict Vallecillo MD [address] [place] [address] PCP - [facility]10/21/24Team MemberRelationshipSpecialtyStart DateEnd Date Benedict Vallecillo MD [address] [place] [address] PCP - [facility] Medicine10/05/23 Benedict Vallecillo MD [address] [place] [address] PCP - [facility]10/21/24Team MemberRelationshipSpecialtyStart DateEnd Date Benedict Vallecillo MD [address] [place] [address] PCP - [facility] Medicine10/05/23 Benedict Vallecillo MD [address] [place] [address] PCP - [facility]10/21/24Team MemberRelationshipSpecialtyStart DateEnd Date Benedict Vallecilol MD [address] [place] [address] PCP - GeneralFamily Medicine10/05/23 Benedict Vallecillo MD [address] [place] [address] PCP - [facility]10/21/24Team MemberRelationshipSpecialtyStart DateEnd Date Benedict Vallecillo MD [address] [place] [address] PCP - [facility]10/05/23 Benedict Vallecillo MD [address] [place] [address] PCP - [facility]10/21/24Te MemberRelationshipSpecialtyStart DateEnd Date Benedict Vallecillo MD PCP - [facility]10/05/23 Benedict Vallecillo MD [address] [place] [address] PCP - [facility]10/21/24 Reason for Visit (unrecogniz ed section and content) ReasonCommentsFollow-upSurgical clearanceReasonCommentsPainReasonComments Medicare Annual Wellness Visit SubsequentwellnessReasonCommentsIngrown Toenail Serge Shine 79yo New patient presents with BL great toe pain. Patient relates he has trouble reachinghis toes to trim them. [id number] Vallecillo 07/18/2024 10OieqhvAvkusmwzExffxr-[id number]-vb FOR RECORDS PERTAINING TO PATIENTS WHO ARE [...] BE BASED ON THE PRIMARY CLINICAL RECORDS. [facility]. provides no warranty or guarantee of the accuracy or completeness of information in this document.
== END 2025-07-25 11:44 | disposition home or self-care (01) ==
LOC: LAB 11:45
PROVIDERS: PCP Family Medicine; Visit Provider Family Medicine
DX: E11.65 Type 2 diabetes mellitus with hyperglycemia (principal)
CPT/HCPCS: 36415; 83036